=== PATIENT | male | born 1935 | race Caucasian/White ===

== ENCOUNTER 2016-07-04 16:19 | Inpatient (IN) | payer MEDICARE, BC ==
[2016-07-04] MEDS ORDERED: Sodium Chloride 0.9% 10 ML Syringe FLUSH PRN (17:00)
[2016-07-04] MEDS ORDERED: Sodium Chloride 0.9% 500 ML IV ONE (17:02)
[2016-07-04 18:07] LABS: CHLORIDE,CL 99 mmol/L (98-107); SODIUM,NA 136 mmol/L (136-145)
--- NOTE | 2016-07-04 19:01 | PCM.HP ---
H&P History of Present Illness - General Date of Service: 07/04/16 Admit Problem/Dx: Admission Diagnosis/Problem Admission Diagnosis/Problem UTI, Urinary tract infectious disease Source of Information: Patient History Limitations: Reports: No limitations - History of Present Illness Initial Comments - Free Text/Narative: Mr. Aragon is an 81 yo male with history as below who presented to the ED by EMS for evaluation following a fall. He was up and around the kitchen making supper when he suddenly felt lightheaded. He ended up falling and recalls falling on his knees, then his buttocks, and then his side. He denies that he hit his head and does not have a headache or any neck pain. There was some concern of a syncopal event but the patient does not believe he actually lost consciousness. His children who are with him note that this is quite typical for him when he gets a UTI. He admits that the urine in his ostomy bag has contained more sediment than usual over the past week. He has not had any abdominal pain, fever, or chills. He also notes that he has had an intermittently increased cough over the past 2 months that has been worse again over the past 2 weeks and especially today. He has been coughing up mucous but can't get it all the way out and ends up swallowing it. He has also been more short of breath and his daughter noted his oxygen saturation at home today to be 83%. He normally uses his oxygen only at night or with significant exertion but has needed it fairly consistently today. He denies any chest pain and notes that his legs have not been more swollen lately. As above, he has had no fever or chills. He has been more generally weak today but denies any nausea, vomiting , or diarrhea. He denies any pain in his legs or back following his fall today. - Related Data Allergies/Adverse Reactions: Allergies Allergy/AdvReac Type Severity Reaction Status Date / Time No Known Allergies Allergy Verified 04/07/16 19:44 Home Medications: Home Meds Albuterol [Proair HFA] 1 - 2 puff INH Q4H PRN 09/10/14 [History] Allopurinol [Zyloprim] 300 mg PO DAILY 09/10/14 [History] Budesonide/Formoterol [Symbicort 160-4.5 MCG] 2 puff PO BID 12/24/14 [History] Tiotropium [Spiriva HandiHaler] 1 puff PO DAILY 12/24/14 [History] Multivitamin with Minerals [Multiple Vitamin] 1 tab PO DAILY 06/19/15 [History] Metoprolol Succinate [Toprol XL] 25 mg PO DAILY #30 tab.er 07/20/15 [Rx] Spironolactone [Aldactone] 12.5 mg PO DAILY #15 tablet 07/20/15 [Rx] Furosemide 40 mg PO DAILY 01/26/16 [History] Magnesium Oxide [Magnesium] 500 mg PO DAILY 01/26/16 [History] Cyclobenzaprine [Flexeril] 10 mg PO TID PRN #40 tablet 04/11/16 [Rx] Nitrofurantoin Macrocrystal [Macrodantin] 100 mg PO DAILY #7 capsule 04/11/16 [ Rx] Warfarin [Coumadin] 2.5 mg PO DAILY #0 04/11/16 [Rx] Acetaminophen 1,000 mg PO TID PRN 07/04/16 [History] Diltiazem HCl [Cartia Xt] 180 mg PO DAILY 07/04/16 [History] Past Medical History HEENT History: Reports: Impaired vision Cardiovascular History: Reports: Afib, Aneurysm, Heart Failure, High cholesterol , Pulmonary hypertension Respiratory History: Reports: COPD, PE, SOB Other Respiratory History: hypoxia, oxygen dependent Gastrointestinal History: Reports: Chronic constipation Genitourinary History: Reports: Hydronephrosis, Renal calculus, UTI, recurrent Other Genitourinary History: kidney stones Musculoskeletal History: Reports: Gout Neurological History: Reports: Other (see below) Other Neuro History: mild cognitive impairment Psychiatric History: Reports: Other (see below) Other Psychiatric History: adjustment disorder Endocrine/Metabolic History: Reports: None Hematologic History: Reports: Other (see below) Other Hematologic History: coumadin therapy Immunologic History: Reports: None Oncologic (Cancer) History: Reports: Bladder Dermatologic History: Reports: Other (see below) Other Dermatologic History: skin discoloration to lower extremities - Infectious Disease History Infectious Disease History: Reports: None - Past Surgical History HEENT Surgical History: Reports: Cataract surgery Other HEENT Surgeries/Procedures: Unspecific Eye surgery Cardiovascular Surgical History: Reports: AAA repair GI Surgical History: Reports: Hernia, inguinal Male Surgical History: Reports: Cystectomy, TURP-Transurethral resection of prostate Other Male Surgeries/Procedures: UROSTOMY Social & Family History - Family History Cardiac: Reports: CAD Endocrine/Metabolic: Reports: Diabetes, type II - Tobacco Use Smoking Status *Q: Former Smoker Years of Tobacco use: 5 Packs/Tins Daily: 0.5 Used Tobacco, but Quit: Yes Month Tobacco Last Used: unknown Second Hand Smoke Exposure: No - Caffeine Use Caffeine Use: Reports: Coffee - Alcohol Use Alcohol Use History: No Days Per Week of Alcohol Use: 0 Alcohol Use in Last Twelve Months: No - Recreational Drug Use Recreational Drug Use: No - Living Situation & Occupation Living situation: Reports: , alone 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 Denies: fever, chills HEENT: Reports: no symptoms Pulmonary: Reports: Shortness of Breath, Cough, Sputum Cardiovascular: Reports: no symptoms Gastrointestinal: Reports: No symptoms Genitourinary: Reports: other (cloudy urine with increased sediments; urostomy bag) Musculoskeletal: Reports: no symptoms Skin: Reports: no symptoms Psychiatric: Reports: no symptoms Neurological: Reports: No Symptoms Exam - Exam Exam: See Below - Vital Signs Vital Signs: Last Vital Signs Temp 37.2 C 07/04/16 16:25 Pulse 113 H 07/04/16 16:39 Resp 18 07/04/16 16:39 BP 128/77 07/04/16 16:39 Pulse Ox 95 07/04/16 17:01 Weight: 92.533 kg - Exam General: alert, cooperative. No: mild distress, moderate distress, severe distress HEENT: Conjunctiva clear, EOMI, Mucosa moist & pink, Pupils equal, Pupils reactive Neck: supple, trachea midline. No: lymphadenopathy, thyromegaly Lungs: Clear to auscultation, Normal respiratory effort Cardiovascular: regular rate, normal S1, normal S2, irregular rhythm. No: systolic murmur, diastolic murmur Abdomen: normal bowel sounds, soft. No: organomegaly, distention, tenderness Extremities: normal inspection, normal pulses. No: edema Skin: warm, dry, intact Neurological: cranial nerves intact. No: focal deficit - Patient Data Result Diagrams: 07/04/16 17:15 07/04/16 17:15 *Q Meaningful Use (ADM) - VTE *Q VTE Criteria *Q: - Stroke *Q Stroke Criteria *Q: - AMI *Q AMI Criteria *Q: - Problem List (1) Syncope SNOMED Code(s): 762815669 ICD Code: R55 - SYNCOPE AND COLLAPSE Status: Acute Current Visit: Yes Problem Details: - Unclear whether he actually lost consciousness given he can recall the entire fall. - Regardless, event is likely secondary primarily to his UTI but also with contribution from his COPD exacerbation. He may have also been mildly dehydrated as well. PE unlikely given therapeutic INR. - Certainly, a cardiac cause is considered. However, the patient is not interested in a pacemaker or defibrillator if this was indicated. Therefore, will not place him on telemetry. He has no evidence of an acute ME based on his ECG or troponin results. Will not trend this either. His BNP is elevated but stable, as is his chest x-ray; therefore, there is no evidence of a CHF exacerbation. - Received 500 cc IV fluids in the ED. In the setting of his chronic heart failure, will hold off on further IV fluids today and allow him to ad rebecca POs. - IV bolus as needed for hypotension. Qualifiers: Syncope type: unspecified Qualified Code(s): R55 - Syncope and collapse (2) Fall SNOMED Code(s): 6345930, 817484846 ICD Code: W19.XXXA - UNSPECIFIED FALL, INITIAL ENCOUNTER Status: Acute Current Visit: Yes Problem Details: - Secondary to above. - No injuries noted. - No indication for head CT but this will be obtained immediately for any change in neurologic status. - Will likely require PT consult but we will see how he does with nursing. Qualifiers: Encounter type: initial encounter Qualified Code(s): W19.XXXA - Unspecified fall, initial encounter (3) UTI, Urinary tract infectious disease SNOMED Code(s): 05181227 ICD Code: N39.0 - URINARY TRACT INFECTION, SITE NOT SPECIFIED Status: Acute Priority: Low Current Visit: No Problem Details: - Urine was quite abnormal as collected in the ED. - However, this was from his ostomy bag; therefore, we will repeat the sample with a new ostomy in place. - This would be considered a complicated UTI based on his history. His previous urine culture results are reviewed. He has had a history of pseudomonas in the past, which has always been susceptible to fluoroquinolones. - In order to give him better lung coverage in the setting of his COPD exacerbation, will do levofloxacin instead of ciprofloxacin. Dosing for UTI is 250 mg daily x 10 days in the setting of possible pseudomonas. - Urine culture will also be sent. (4) COPD exacerbation SNOMED Code(s): 199160374, 646604371 ICD Code: J44.1 - CHRONIC OBSTRUCTIVE PULMONARY DISEASE W (ACUTE) EXACERBATION Status: Acute Current Visit: Yes Problem Details: - He has increased cough, increased sputum, and increased dyspnea, meeting all 3 criteria for COPD exacerbation. - Will treat with prednisone and PRN nebs. - Given he meets all 3 criteria, antibiotics are indicated as well. As above, will treat with levofloxacin to cover both the urine and the lungs. Although the dosing is lower at 250 mg, this is the appropriate dose for lung coverage as well given his renal impairment. He has no history of QTc prolongation and had a normal QTc on his ECG from [facility]. (5) COPD, severe SNOMED Code(s): 883245775 ICD Code: J44.9 - CHRONIC OBSTRUCTIVE PULMONARY DISEASE, UNSPECIFIED Status : Chronic Current Visit: No Problem Details: - Continue home inhalers. - Keep O2 sats in the 90-92% range. (6) Constipation SNOMED Code(s): 39134771 ICD Code: K59.00 - CONSTIPATION, UNSPECIFIED Status: Chronic Current Visit: No Problem Details: - Well controlled at this time. - Continue senna plus BID. Will also continue PRN lactulose and bisacodyl. (7) Chronic anticoagulation SNOMED Code(s): 502765089 ICD Code: Z79.01 - JAIL (CURRENT) USE OF ANTICOAGULANTS Status: Chronic Current Visit: No Problem Details: - INR is therapeutic. - He is at risk for fluctuations in this based on use of antibiotics. - Continue home warfarin dosing for now. - Recheck INR daily. (8) Chronic atrial fibrillation SNOMED Code(s): 491660212 ICD Code: I48.2 - CHRONIC ATRIAL FIBRILLATION Status: Chronic Current Visit: No Problem Details: - Rates high on ED presentation but now <100 after small IV fluid bolus. - As long as overall <110, will not treat with additional rate control at this time. - Will not do any further IV fluids overnight given elevated BNP and risk of causing the patient to have a CHF exacerbation. Will bolus as needed. - Continue home medications. (9) Chronic kidney disease SNOMED Code(s): 388526375 ICD Code: N18.9 - CHRONIC KIDNEY DISEASE, UNSPECIFIED Status: Chronic Current Visit: No Problem Details: - Thermostat Machine Tender mildly elevated above baseline of ~ 1.4 but does not meet criteria for OSIRIS. Bump likely secondary to mild dehydration. - Will follow daily. - Avoid nephrotoxic medications. - Renally dose all medications. Qualifiers: (10) Gout SNOMED Code(s): 63610722 ICD Code: M10.9 - GOUT, UNSPECIFIED Status: Chronic Current Visit: No Problem Details: - No current symptoms. - Continue allopurinol. Qualifiers: (11) Heart failure SNOMED Code(s): 96311675 ICD Code: I50.9 - HEART FAILURE, UNSPECIFIED Status: Chronic Current Visit: No Problem Details: - No symptoms or exam findings to suggest CHF exacerbation. BNP is elevated but stable. - CXR with findings of stable chronic CHF and no acute findings. - Overnight, will just be cautious with his fluid balance. - Continue home medications. Qualifiers: (12) History of pulmonary embolus (PE) SNOMED Code(s): 971977991 ICD Code: Z86.711 - PERSONAL HISTORY OF PULMONARY EMBOLISM Status: Chronic Current Visit: No Problem Details: - INR is therapeutic. - Will check daily. - Continue warfarin at home doses. (13) Hypercholesteremia SNOMED Code(s): 79214108 ICD Code: E78.0 - PURE HYPERCHOLESTEROLEMIA * DO NOT USE * Status: Chronic Current Visit: No Problem Details: - Continue home medications. (14) Pulmonary hypertension SNOMED Code(s): 46561358 ICD Code: I27.2 - OTHER SECONDARY PULMONARY HYPERTENSION Status: Chronic Current Visit: No Problem Details: - Supplemental oxygen as needed. Problem List Initiated/Reviewed/Updated: Yes Orders Last 24hrs: Medication Orders Sodium Chloride (Saline Flush) 10 ml FLUSH ASDIRECTED PRN PRN Reason: Keep Vein Open Assessment/Plan Comment:: 81 yo male admitted following a possible syncopal event, presumed secondary to a UTI and COPD exacerbation. See details under problems above. No further IV fluids tonight. Will start levofloxacin and prednisone. Blood cultures pending; urine will also be sent for culture. No indication for VTE prophylaxis as INR is therapeutic. Patient will be admitted under acute status as I anticipate he will be admitted for >2 midnights for stabilization and management. He may need a PT evaluation to determine safety going home, which would not be completed until Thursday. Will do PO antibiotics as the bioavailability of levofloxacin is the same PO as IV with less potential for side effects. Patient wishes to be DNR /DNI, which is consistent with documentation in the outpatient setting as well. He is also not interested in advanced interventions, such as pacemaker or ICD placement.
[2016-07-04] MEDS ORDERED: Acetaminophen 500 MG Tab PO PRN (19:43)
[2016-07-04] MEDS ORDERED: Cyclobenzaprine 10 MG Tab PO PRN (19:43)
[2016-07-04] MEDS ORDERED: Warfarin 2.5 MG Tab PO SCH (20:00)
[2016-07-04] MEDS ORDERED: Lactulose Soln 10 GM/15 ML 30 ML UD Cup PO PRN (20:03)
[2016-07-04] MEDS ORDERED: Bisacodyl 5 MG Tab PO PRN (20:05)
[2016-07-04] MEDS: Levofloxacin 250 MG Tab PO SCH (21:45)
[2016-07-04] MEDS: Formoterol/Mometasone 200-5 MCG 8.8 GM Inhaler IH SCH (21:47)
[2016-07-05] MEDS: Albuterol 0.083% 2.5 MG/3 ML Neb Soln NEB PRN ×3 (01:43→21:01)
[2016-07-05] MEDS: Tiotropium Inhaler 18 MCG Inhalation Powder Cap Kit of 5 INH SCH (08:01)
[2016-07-05] MEDS: Metoprolol Succinate 25 MG Tab.ER PO SCH (08:01)
[2016-07-05] MEDS: predniSONE 20 MG Tab PO SCH (08:01)
[2016-07-05] MEDS: Diltiazem 180 MG Cap.CD PO SCH (08:01)
[2016-07-05] MEDS: Furosemide 20 MG Tab PO SCH ×2 (08:02→16:55)
[2016-07-05] MEDS: Allopurinol 300 MG Tab PO SCH (08:02)
[2016-07-05] MEDS: Spironolactone 25 MG Tab PO SCH (08:02)
[2016-07-05] MEDS: Magnesium Oxide 400 MG Tab PO SCH (08:02)
--- NOTE | 2016-07-05 08:02 | PCM.PN ---
- General Info Date of Service: 07/05/16 Subjective Update: Doing ok this morning. Did have a fever overnight. Cough continues but breathing is improved. Denies abdominal pain or chest pain. - Review of Systems General: Reports: Fever, Weakness, Fatigue HEENT: Reports: no symptoms Pulmonary: Reports: shortness of breath, cough Cardiovascular: Reports: No Symptoms Gastrointestinal: Reports: No symptoms Genitourinary: Reports: no symptoms Musculoskeletal: Reports: no symptoms Skin: Reports: no symptoms - Patient Data Vitals - most recent: Last Vital Signs Temp 36.4 C 07/05/16 06:00 Pulse 84 07/05/16 06:00 Resp 22 H 07/05/16 06:00 BP 110/67 07/05/16 06:00 Pulse Ox 95 07/05/16 07:27 Weight - most recent: 94.347 kg I&O - last 24 hours: Intake & Output 07/04/16 07/05/16 07/05/16 22:59 06:59 14:59 Output Total 500 700 Balance -500 -700 Med Orders - Current: Current Medications Acetaminophen (Tylenol Extra Strength) 1,000 mg PO TID PRN PRN Reason: Pain Last Admin: 07/05/16 01:44 Dose: 1,000 mg Albuterol (Proventil Neb Soln) 2.5 mg NEB Q4H PRN PRN Reason: Shortness of Breath Last Admin: 07/05/16 01:43 Dose: 2.5 mg Allopurinol (Zyloprim) 300 mg PO DAILY [facility] Bisacodyl (Dulcolax) 5 mg PO DAILY PRN PRN Reason: Constipation Diltiazem HCl (Cardizem Cd) 180 mg PO DAILY [facility] Furosemide (Lasix) 20 mg PO BIDDIURETIC [facility] Lactulose (Cephulac) 20 gm PO TID PRN PRN Reason: Constipation Levofloxacin (Levaquin) 250 mg PO Q24H [facility] Last Admin: 07/04/16 21:45 Dose: 250 mg Magnesium Oxide (Magnesium Oxide) 400 mg PO DAILY [facility] Metoprolol Succinate (Toprol Xl) 25 mg PO DAILY [facility] Mometasone Furoate/Formoterol Fumar (Dulera 200-5 Mcg) 2 puff IH BID [facility] Last Admin: 07/04/16 21:47 Dose: 2 puff Prednisone (Prednisone) 40 mg PO WITHBREAKFAST [facility] Senna/Docusate Sodium (Senna Plus) 1 tab PO BID [facility] Last Admin: 07/04/16 21:45 Dose: 1 tab Sodium Chloride (Saline Flush) 10 ml FLUSH ASDIRECTED PRN PRN Reason: Keep Vein Open Spironolactone (Aldactone) 12.5 mg PO DAILY [facility] Tiotropium [place] (Spiriva Handihaler) 18 mcg INH DAILY [facility] Warfarin Sodium (Coumadin) 2.5 mg PO FR [facility] Last Admin: 07/04/16 21:45 Dose: 2.5 mg Warfarin Sodium (Coumadin) 5 mg PO SUMOTUWETHSA@2000 [facility] Discontinued Medications Cyclobenzaprine HCl (Flexeril) 10 mg PO TID PRN PRN Reason: Pain Sodium Chloride (Normal Saline) 500 mls @ 1,000 mls/hr IV .BOLUS ONE Stop: 07/04/16 17:31 Last Admin: 07/04/16 17:20 Dose: 1,000 mls/hr - Exam General: alert, cooperative, no acute distress HEENT: Pupils equal, Pupils reactive, Mucous membr. moist/pink Neck: supple, trachea midline, no thyromegaly. No: lymphadenopathy Lungs: Clear to auscultation, Normal respiratory effort Cardiovascular: Regular Rate, No Murmurs, Irregular Rhythm Abdomen: bowel sounds present, soft, no tenderness, no distension Extremities: no edema, normal pulses Skin: warm, dry, intact - Problem List & Annotations (1) Syncope SNOMED Code(s): 141873451 Code(s): R55 - SYNCOPE AND COLLAPSE Status: Acute Current Visit: Yes Qualifiers: Syncope type: unspecified Qualified Code(s): R55 - Syncope and collapse Annotation/Comment:: - Unclear whether he actually lost consciousness given he can recall the entire fall. - Regardless, event is likely secondary primarily to his UTI but also with contribution from his COPD exacerbation. - Received 500 cc IV fluids in the ED. In the setting of his chronic heart failure, opted to hold off on further IV fluids overnight and allow him to ad rebecca POs. Will see what his Creatinine is today and decide on further fluids but I suspect we will be able to stick with orals. - IV bolus as needed for hypotension. (2) Fall SNOMED Code(s): 3614554, 905533537 Code(s): W19.XXXA - UNSPECIFIED FALL, INITIAL ENCOUNTER Status: Acute Current Visit: Yes Qualifiers: Encounter type: initial encounter Qualified Code(s): W19.XXXA - Unspecified fall, initial encounter Annotation/Comment:: - Secondary to above. - No injuries noted. - No indication for head CT but this will be obtained immediately for any change in neurologic status. - Will likely require PT consult but we will see how he does with nursing. (3) UTI, Urinary tract infectious disease SNOMED Code(s): 81905085 Code(s): N39.0 - URINARY TRACT INFECTION, SITE NOT SPECIFIED Status: Acute Priority: Low Current Visit: No Annotation/Comment:: - Urine was quite abnormal as collected in the ED. - However, this was from his ostomy bag; therefore, we will repeat the sample with a new ostomy in place. - This would be considered a complicated UTI based on his history. His previous urine culture results are reviewed. He has had a history of pseudomonas in the past, which has always been susceptible to fluoroquinolones. - In order to give him better lung coverage in the setting of his COPD exacerbation, he is on levofloxacin instead of ciprofloxacin. Dosing for UTI is 250 mg daily x 10 days in the setting of possible pseudomonas. - Urine culture will also be sent. (4) COPD exacerbation SNOMED Code(s): 185535864, 318203203 Code(s): J44.1 - CHRONIC OBSTRUCTIVE PULMONARY DISEASE W (ACUTE) EXACERBATION Status: Acute Current Visit: Yes Annotation/Comment:: - He has increased cough, increased sputum, and increased dyspnea, meeting all 3 criteria for COPD exacerbation. - Note his influenza was negative. No evidence for pneumonia on CXR. - Will treat with prednisone and PRN nebs. - Given he meets all 3 criteria, antibiotics are indicated as well. As above, will treat with levofloxacin to cover both the urine and the lungs. Although the dosing is lower at 250 mg, this is the appropriate dose for lung coverage as well given his renal impairment. He has no history of QTc prolongation and had a normal QTc on his ECG from his ED visit. (5) COPD, severe SNOMED Code(s): 043483616 Code(s): J44.9 - CHRONIC OBSTRUCTIVE PULMONARY DISEASE, UNSPECIFIED Status : Chronic Current Visit: No Annotation/Comment:: - Continue home inhalers. - Keep O2 sats in the 90-92% range. (6) Constipation SNOMED Code(s): 64620709 Code(s): K59.00 - CONSTIPATION, UNSPECIFIED Status: Chronic Current Visit : No Annotation/Comment:: - Well controlled at this time. - Continue senna plus BID. Will also continue PRN lactulose and bisacodyl. 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 - The levofloxacin will likely result in INR elevation; therefore, we will not change the dose today. - Continue home warfarin dosing for now. He does not need any bridging given 1.8 is still considered therapeutic. - Recheck INR daily. (8) Chronic atrial fibrillation SNOMED Code(s): 115645746 Code(s): I48.2 - CHRONIC ATRIAL FIBRILLATION Status: Chronic Current Visit: No Annotation/Comment:: - Rates high on ED presentation but have been < 100 since admission. - Continue home medications. 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 Baseline is ~1.4. - Bump likely secondary to mild dehydration. He got IV fluids in the ED. Based on his tenuous CHF status, I will not give him any IV fluids today. Rather, nursing staff will encourage adequate PO fluids. - Will follow daily. - Avoid nephrotoxic medications. - Renally dose all medications. (10) Gout SNOMED Code(s): 54826016 Code(s): M10.9 - GOUT, UNSPECIFIED Status: Chronic Current Visit: No Qualifiers: Annotation/Comment:: - No current symptoms. - Continue allopurinol. (11) Heart failure SNOMED Code(s): 75667127 Code(s): I50.9 - HEART FAILURE, UNSPECIFIED Status: Chronic Current Visit : No Qualifiers: Annotation/Comment:: - No symptoms or exam findings to suggest CHF exacerbation. BNP is elevated but stable. - CXR with findings of stable chronic CHF and no acute findings. - Overnight, will just be cautious with his fluid balance. - Continue home medications. (12) History of pulmonary embolus (PE) SNOMED Code(s): 244241513 Code(s): Z86.711 - PERSONAL HISTORY OF PULMONARY EMBOLISM Status: Chronic Current Visit: No Annotation/Comment:: - INR is therapeutic. - Will check daily. - Continue warfarin at home doses. (13) Hypercholesteremia SNOMED Code(s): 28074935 Code(s): E78.0 - PURE HYPERCHOLESTEROLEMIA * DO NOT USE * Status: Chronic Current Visit: No Annotation/Comment:: - Continue home medications. (14) Pulmonary hypertension SNOMED Code(s): 89635366 Code(s): I27.2 - OTHER SECONDARY PULMONARY HYPERTENSION Status: Chronic Current Visit: No Annotation/Comment:: - Supplemental oxygen as needed. - Problem List Review Problem List Initiated/Reviewed/Updated: Yes - My Orders Last 24 Hours: My Active Orders 07/04/16 19:35 Oxygen Therapy [RC] PRN Up With Assistance [RC] ASDIRECTED VTE/DVT Education [RC] PER UNIT ROUTINE Vital Signs [RC] 06,10,14,18,22,02 Anticoagulation Contraindications VTE [AST] Per Unit Routine Resuscitation Status Routine 07/04/16 19:40 Notify Provider Vital Signs [RC] ASDIRECTED 07/04/16 19:43 Acetaminophen [Tylenol Extra Strength] 1,000 mg PO TID PRN 07/04/16 20:00 Albuterol [Proventil Neb Soln] 2.5 mg NEB Q4H PRN Warfarin [Coumadin] 2.5 mg PO FR 07/04/16 20:01 RT Aerosol Therapy [RC] ASDIRECTED 07/04/16 20:03 Lactulose [Cephulac] 20 gm PO TID PRN 07/04/16 20:05 Bisacodyl [Dulcolax] 5 mg PO DAILY PRN 07/04/16 20:15 Docusate Sodium/Sennosides [Senna Plus] 1 tab PO BID 07/04/16 20:30 Levofloxacin [Levaquin] 250 mg PO Q24H Mometasone/Formoterol [Dulera 200-5 MCG] 2 puff IH BID 07/04/16 21:15 CULTURE URINE [RM] Stat UA W/MICROSCOPIC [URIN] Routine 07/04/16 Dinner Regular Diet [DIET] 07/05/16 07:40 BASIC METABOLIC PANEL,BMP [CHEM] Routine CBC WITH AUTO DIFF [HEME] Routine INR,PT,PROTHROMBIN TIME [COAG] Routine 07/05/16 08:00 Allopurinol [Zyloprim] 300 mg PO DAILY Diltiazem [Cardizem CD] 180 mg PO DAILY Furosemide [Lasix] 20 mg PO BIDDIURETIC Magnesium Oxide 400 mg PO DAILY Metoprolol Succinate [Toprol XL] 25 mg PO DAILY Spironolactone [Aldactone] 12.5 mg PO DAILY Tiotropium [Spiriva HandiHaler] 18 mcg INH DAILY predniSONE 40 mg PO WITHBREAKFAST 07/05/16 20:00 Warfarin [Coumadin] 5 mg PO KURTCESIARAUL@1999 - Assessment Assessment:: 81 yo male admitted following a syncopal vs. near syncopal event, felt to be secondary to UTI and COPD exacerbation. See details under problems above. He is doing much better this morning but still coughing more than usual. - Plan Plan:: See details under problems above. IV fluid bolus PRN. Continue levofloxacin and prednisone. Blood cultures pending; urine will also be sent for culture. No indication for VTE prophylaxis as INR is therapeutic. Patient will be admitted under acute status and I anticipate dismissal likely Thursday (48 hours from now) . He may need a PT evaluation to determine safety going home, which would not be completed until Thursday. Will do PO antibiotics as the bioavailability of levofloxacin is the same PO as IV with less potential for side effects. Patient wishes to be DNR/DNI, which is consistent with documentation in the outpatient setting as well. He is also not interested in advanced interventions, such as pacemaker or ICD placement.
[2016-07-05] MEDS: Formoterol/Mometasone 200-5 MCG 8.8 GM Inhaler IH SCH ×2 (08:03→21:07)
[2016-07-05] MEDS: Warfarin 5 MG Tab PO SCH (20:33)
[2016-07-05] MEDS: Levofloxacin 250 MG Tab PO SCH (20:34)
[2016-07-06] MEDS: Albuterol 0.083% 2.5 MG/3 ML Neb Soln NEB PRN (07:19)
[2016-07-06] MEDS: Metoprolol Succinate 25 MG Tab.ER PO SCH (07:35)
[2016-07-06] MEDS: Allopurinol 300 MG Tab PO SCH (07:35)
[2016-07-06] MEDS: predniSONE 20 MG Tab PO SCH (07:35)
[2016-07-06] MEDS: Diltiazem 180 MG Cap.CD PO SCH (07:35)
[2016-07-06] MEDS: Magnesium Oxide 400 MG Tab PO SCH (07:35)
[2016-07-06] MEDS: Spironolactone 25 MG Tab PO SCH (07:35)
[2016-07-06] MEDS: Formoterol/Mometasone 200-5 MCG 8.8 GM Inhaler IH SCH ×2 (07:36→21:01)
[2016-07-06] MEDS: Furosemide 20 MG Tab PO SCH ×2 (07:36→17:30)
[2016-07-06] MEDS: Tiotropium Inhaler 18 MCG Inhalation Powder Cap Kit of 5 INH SCH (07:36)
--- NOTE | 2016-07-06 09:35 | PCM.PN ---
- General Info Date of Service: 07/06/16 Subjective Update: Still quite weak this morning. Cough and breathing are stable. No chest pain, fever, or chills. No abdominal pain, nausea, vomiting, or diarrhea. ROS otherwise negative as below. Nursing staff concerned about some confusion overnight and in the mornings; seems to do better around lunch and the afternoon. Is quite weak and having difficulty with ambulation. - Review of Systems General: Reports: No Symptoms HEENT: Reports: no symptoms Pulmonary: Reports: shortness of breath, cough Cardiovascular: Reports: No Symptoms Gastrointestinal: Reports: No symptoms Genitourinary: Reports: no symptoms Musculoskeletal: Reports: no symptoms Skin: Reports: no symptoms Neurological: Reports: No Symptoms - Patient Data Vitals - most recent: Last Vital Signs Temp 36.2 C 07/06/16 06:00 Pulse 81 07/06/16 07:35 Resp 18 07/06/16 06:00 BP 119/79 07/06/16 07:35 Pulse Ox 92 L 07/06/16 07:19 Weight - most recent: 94.347 kg I&O - last 24 hours: Intake & Output 07/05/16 07/06/16 07/06/16 22:59 06:59 14:59 Intake Total 350 200 Output Total 950 850 Balance -600 -850 200 Lab Results last 24 hrs: Laboratory Results - last 24 hr 07/06/16 07/06/16 07/06/16 Range/Units 07:36 07:36 07:36 WBC 10.3 H (4.0-10.0) x10^3/uL RBC 4.48 L (4.5-6.0) x10^6/uL Hgb 15.2 (14.0-18.0) g/dL Hct 44.9 (40.0-52.0) % MCV 100.2 H (78.0-93.0) fL MCH 33.9 H (26.0-32.0) pg MCHC 33.9 (32.0-36.0) g/dL RDW Coeff of Lety 13.6 (10.0-15.0) % Plt Count 175 (130-400) x10^3/uL Add Manual Diff Yes Neutrophils % (Manual) 72 (50-80) % Band Neutrophils % 3 (0-6) % Lymphocytes % (Manual) 16 L (25-50) % Monocytes % (Manual) 9 (2-11) % Platelet Estimate Adequate PT 20.2 H (10.0-12.8) SEC INR 1.8 L (2.0-3.5) Sodium 133 L (136-145) mmol/L Potassium 4.5 (3.5-5.1) mmol/L Chloride 99 (98-107) mmol/L Carbon Dioxide 26 (21-32) mmol/L BUN 30 H (7-18) mg/dL Creatinine 1.4 H (0.70-1.30) mg/dL Est Cr Clr Drug Dosing 45.18 mL/min Estimated GFR (MDRD) 48 Glucose 114 H (74-106) mg/dL Calcium 8.3 L (8.5-10.1) mg/dL Joce Results last 24 hrs: Microbiology 07/04/16 21:15 Urine Culture - Preliminary Urine, Urostromy Gram Negative Rods 07/05/16 06:30 MRSA Surveillance Culture - Final Nasal, Unspecified NO MRSA ISOLATED Med Orders - Current: Current Medications Acetaminophen (Tylenol Extra Strength) 1,000 mg PO TID PRN PRN Reason: Pain Last Admin: 07/05/16 01:44 Dose: 1,000 mg Albuterol (Proventil Neb Soln) 2.5 mg NEB Q4H PRN PRN Reason: Shortness of Breath Last Admin: 07/06/16 07:19 Dose: 2.5 mg Allopurinol (Zyloprim) 300 mg PO DAILY [facility] Last Admin: 07/06/16 07:35 Dose: 300 mg Bisacodyl (Dulcolax) 5 mg PO DAILY PRN PRN Reason: Constipation Diltiazem HCl (Cardizem Cd) 180 mg PO DAILY [facility] Last Admin: 07/06/16 07:35 Dose: 180 mg Furosemide (Lasix) 20 mg PO BIDDIURETIC [facility] Last Admin: 07/06/16 07:36 Dose: 20 mg Lactulose (Cephulac) 20 gm PO TID PRN PRN Reason: Constipation Levofloxacin (Levaquin) 250 mg PO Q24H [facility] Last Admin: 07/05/16 20:34 Dose: 250 mg Magnesium Oxide (Magnesium Oxide) 400 mg PO DAILY [facility] Last Admin: 07/06/16 07:35 Dose: 400 mg Metoprolol Succinate (Toprol Xl) 25 mg PO DAILY [facility] Last Admin: 07/06/16 07:35 Dose: 25 mg Mometasone Furoate/Formoterol Fumar (Dulera 200-5 Mcg) 2 puff IH BID [facility] Last Admin: 07/06/16 07:36 Dose: 2 puff Prednisone (Prednisone) 40 mg PO WITHBREAKFAST [facility] Last Admin: 07/06/16 07:35 Dose: 40 mg Senna/Docusate Sodium (Senna Plus) 1 tab PO BID [facility] Last Admin: 07/06/16 07:35 Dose: 1 tab Sodium Chloride (Saline Flush) 10 ml FLUSH ASDIRECTED PRN PRN Reason: Keep Vein Open Spironolactone (Aldactone) 12.5 mg PO DAILY [facility] Last Admin: 07/06/16 07:35 Dose: 12.5 mg Tiotropium [place] (Spiriva Handihaler) 18 mcg INH DAILY [facility] Last Admin: 07/06/16 07:36 Dose: 18 mcg Warfarin Sodium (Coumadin) 2.5 mg PO FR [facility] Last Admin: 07/04/16 21:45 Dose: 2.5 mg Warfarin Sodium (Coumadin) 5 mg PO SUMOTUWETHSA@2000 [facility] Last Admin: 07/05/16 20:33 Dose: 5 mg Discontinued Medications Cyclobenzaprine HCl (Flexeril) 10 mg PO TID PRN PRN Reason: Pain Sodium Chloride (Normal Saline) 500 mls @ 1,000 mls/hr IV .BOLUS ONE Stop: 07/04/16 17:31 Last Admin: 07/04/16 17:20 Dose: 1,000 mls/hr - Exam General: alert, cooperative, no acute distress Neck: supple, no thyromegaly. No: lymphadenopathy Lungs: Clear to auscultation, Normal respiratory effort Cardiovascular: Regular Rate, Regular Rhythm, No Murmurs Abdomen: bowel sounds present, soft, no tenderness, no distension Extremities: no edema, normal pulses Skin: warm, dry, intact - Problem List & Annotations (1) Syncope SNOMED Code(s): 446009011 Code(s): R55 - SYNCOPE AND COLLAPSE Status: Acute Current Visit: Yes Qualifiers: Syncope type: unspecified Qualified Code(s): R55 - Syncope and collapse Annotation/Comment:: - Unclear whether he actually lost consciousness given he can recall the entire fall. - Regardless, event is likely secondary primarily to his UTI but also with contribution from his COPD exacerbation. - Received 500 cc IV fluids in the ED. In the setting of his chronic heart failure, opted to hold off on further IV fluids thus far and allow him to ad rebecca POs. He is keeping up with fluid intake well. - IV bolus as needed for hypotension. (2) Fall SNOMED Code(s): 5936174, 146493395 Code(s): W19.XXXA - UNSPECIFIED FALL, INITIAL ENCOUNTER Status: Acute Current Visit: Yes Qualifiers: Encounter type: initial encounter Qualified Code(s): W19.XXXA - Unspecified fall, initial encounter Annotation/Comment:: - Secondary to above. - No injuries noted. - No indication for head CT but this will be obtained immediately for any change in neurologic status. - Will need PT/OT consults tomorrow as he will likely require a swing bed stay after this acute hospitalization. (3) UTI, Urinary tract infectious disease SNOMED Code(s): 94266406 Code(s): N39.0 - URINARY TRACT INFECTION, SITE NOT SPECIFIED Status: Acute Priority: Low Current Visit: No Annotation/Comment:: - Urine was quite abnormal as collected in the ED. Repeat u/a also consistent with infection. - Urine culture showing growth of gram negative rods. - Clinically, he is improving and has now been afebrile for >24 hours. His WBC are up today, but this is likely secondary to the prednisone. - This would be considered a complicated UTI based on his history. His previous urine culture results are reviewed. He has had a history of pseudomonas in the past, which has always been susceptible to fluoroquinolones. - In order to give him better lung coverage in the setting of his COPD exacerbation, he is on levofloxacin instead of ciprofloxacin. Will continue this for a total of 10 days. (4) COPD exacerbation SNOMED Code(s): 203763308, 217908120 Code(s): J44.1 - CHRONIC OBSTRUCTIVE PULMONARY DISEASE W (ACUTE) EXACERBATION Status: Acute Current Visit: Yes Annotation/Comment:: - He has increased cough, increased sputum, and increased dyspnea, meeting all 3 criteria for COPD exacerbation. - Note his influenza was negative. No evidence for pneumonia on CXR. - Will treat with prednisone and PRN nebs. - Given he meets all 3 criteria, antibiotics are indicated as well. As above, will treat with levofloxacin to cover both the urine and the lungs. Although the dosing is lower at 250 mg, this is the appropriate dose for lung coverage as well given his renal impairment. He has no history of QTc prolongation and had a normal QTc on his ECG from his ED visit. (5) COPD, severe SNOMED Code(s): 799948861 Code(s): J44.9 - CHRONIC OBSTRUCTIVE PULMONARY DISEASE, UNSPECIFIED Status : Chronic Current Visit: No Annotation/Comment:: - Continue home inhalers. - Keep O2 sats in the 90-92% range. (6) Constipation SNOMED Code(s): 70387832 Code(s): K59.00 - CONSTIPATION, UNSPECIFIED Status: Chronic Current Visit : No Annotation/Comment:: - Well controlled at this time. - Continue senna plus BID. Will also continue PRN lactulose and bisacodyl. 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 - Anticipate tomorrow's INR will be up given he is on the levofloxacin; therefore, we will again not change the dose today. - Continue home warfarin dosing for now. He does not need any bridging given 1.8 is still considered borderline therapeutic. - Recheck INR daily. (8) Chronic atrial fibrillation SNOMED Code(s): 320858527 Code(s): I48.2 - CHRONIC ATRIAL FIBRILLATION Status: Chronic Current Visit: No Annotation/Comment:: - Rates high on ED presentation but have been < 100 since admission. - Continue home medications. 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 - Bump likely secondary to mild dehydration. He got IV fluids in the ED but has done well with PO fluids since then. - Will follow daily. - Avoid nephrotoxic medications. - Renally dose all medications. (10) Gout SNOMED Code(s): 32038477 Code(s): M10.9 - GOUT, UNSPECIFIED Status: Chronic Current Visit: No Qualifiers: Annotation/Comment:: - No current symptoms. - Continue allopurinol. (11) Heart failure SNOMED Code(s): 59827070 Code(s): I50.9 - HEART FAILURE, UNSPECIFIED Status: Chronic Current Visit : No Qualifiers: Annotation/Comment:: - No symptoms or exam findings to suggest CHF exacerbation. BNP is elevated but stable. - CXR with findings of stable chronic CHF and no acute findings. - Will continue to be cautious with his fluid balance. - Continue home medications. (12) History of pulmonary embolus (PE) SNOMED Code(s): 794328924 Code(s): Z86.711 - PERSONAL HISTORY OF PULMONARY EMBOLISM Status: Chronic Current Visit: No Annotation/Comment:: - INR is therapeutic. - Will check daily. - Continue warfarin at home doses. (13) Hypercholesteremia SNOMED Code(s): 69700759 Code(s): E78.0 - PURE HYPERCHOLESTEROLEMIA * DO NOT USE * Status: Chronic Current Visit: No Annotation/Comment:: - Continue home medications. (14) Pulmonary hypertension SNOMED Code(s): 84293103 Code(s): I27.2 - OTHER SECONDARY PULMONARY HYPERTENSION Status: Chronic Current Visit: No Annotation/Comment:: - Supplemental oxygen as needed. - Problem List Review Problem List Initiated/Reviewed/Updated: Yes - My Orders Last 24 Hours: My Active Orders 07/05/16 11:02 Consult to Healthcare Customer Service [CONS] Routine OT Evaluation and Treatment [CONS] Routine PT Evaluation and Treatment [CONS] Routine 07/05/16 11:41 IS (RT) [RT Incentive Spirometry] [RC] Q2HWA 07/05/16 20:00 Warfarin [Coumadin] 5 mg PO ADELETUWRAUL@1999 - Assessment Assessment:: 81 yo male admitted following a syncopal vs. near syncopal event, felt to be secondary to UTI and COPD exacerbation. See details under problems above. He is still quite weak but otherwise medically improving. - Plan Plan:: See details under problems above. IV fluid bolus PRN. Continue levofloxacin and prednisone. Blood cultures pending; urine culture showing gram - rods. No indication for VTE prophylaxis as INR is therapeutic. Patient will be admitted under acute status and I anticipate transition to swing bed tomorrow. He may need a PT evaluation to determine safety going home, which would not be completed until tomorrow. Will do PO antibiotics as the bioavailability of levofloxacin is the same PO as IV with less potential for side effects. Patient wishes to be DNR/DNI, which is consistent with documentation in the outpatient setting as well. He is also not interested in advanced interventions, such as pacemaker or ICD placement.
[2016-07-06] MEDS: Levofloxacin 250 MG Tab PO SCH (19:44)
[2016-07-06] MEDS: Warfarin 5 MG Tab PO SCH (19:44)
[2016-07-07] MEDS: Allopurinol 300 MG Tab PO SCH (07:24)
[2016-07-07] MEDS: Diltiazem 180 MG Cap.CD PO SCH (07:25)
[2016-07-07] MEDS: Spironolactone 25 MG Tab PO SCH (07:25)
[2016-07-07] MEDS: Furosemide 20 MG Tab PO SCH ×2 (07:26→14:59)
[2016-07-07] MEDS: predniSONE 20 MG Tab PO SCH (07:26)
[2016-07-07] MEDS: Metoprolol Succinate 25 MG Tab.ER PO SCH (07:26)
[2016-07-07] MEDS: Magnesium Oxide 400 MG Tab PO SCH (07:26)
[2016-07-07] MEDS: Formoterol/Mometasone 200-5 MCG 8.8 GM Inhaler IH SCH (07:28)
[2016-07-07] MEDS: Tiotropium Inhaler 18 MCG Inhalation Powder Cap Kit of 5 INH SCH (07:30)
[2016-07-07 16:54] VITALS: BP 114/74
--- NOTE | 2016-07-08 03:03 | DISCH ---
PRIMARY DISCHARGE DIAGNOSES: 1. Chronic obstructive pulmonary disease exacerbation with known underlying severe chronic obstructive pulmonary disease. 2. Episode of syncope versus presyncope due to medical illness. 3. Urinary tract infection with gram-negative rods complicated due to a urostomy with history of recurrent Pseudomonas urinary tract infection. He is doing well on Levaquin. 4. Chronic atrial fibrillation on Coumadin. 5. History of compression fracture in the back improved. 6. Chronic kidney disease, baseline creatinine is around 1.4. 7. History of bladder stones and history of bladder cancer. 8. History of gout. 9. Mild cognitive impairment with mini mental of 23/30 in 03/2016. 10.Moderate to severe pulmonary hypertension. 11.Previous history of a pulmonary embolism. 12.Chronic diastolic heart failure with previous admit for the same. 13.History of aortic aneurysm repaired. 14.Previous history of lymphadenopathy, declined further workup. 15.Hyperlipidemia. 16.Adjustment disorder. REASON FOR ADMISSION: On the date of admission, this 81-year-old was at home. He was going to prepare supper. He was carrying a roast to the oven and he went down and he remembers most of what happened, he is not sure if he passed out completely, but when he awoke, he could not get up, so he used his lifeline and then the police and ambulance came and they brought him to the emergency room. He admitted to having increased cough and shortness of breath over the last month. He had not had any fevers that he could remember. He had no abdominal pain. He was admitted. He was placed on nebs, oral prednisone 40 mg daily, and oral Levaquin which he tolerated and overall improved to the point where he was up working with therapies. They felt he would benefit from swing bed. He did have a temp during his stay early on with T-max of a 100.8. He was also requiring more oxygen initially at least 4 L. He is supposed to be on oxygen continuously at home. Otherwise, he had no significant pain during his stay. He still has some aches in his back from his previous compression fracture. He had not had a bowel movement since he came in but had been up moving around either. His creatinine which at one point was elevated up to 1.7 improved down to 1.4. He did receive some IV fluids in the ER, but no further fluids were given due to heart failure. He did not require any IV Lasix. His white count was normal, but did go up to 10.3, probably due to prednisone and improved down to 10.1 on discharge. INR 2.0 on discharge. Creatinine 1.4. DISCHARGE PLAN/INSTRUCTIONS: He is going over to swing bed for further therapies. Urine culture preliminary is gram-negative rods with official report pending. He will have no lab work due. INR is now therapeutic, but if on swing bed for 1 week, we will definitely recheck things later in the week. Otherwise, anticipate he may go home within the next several days to 1 week, otherwise no medication changes were made. He will continue on prednisone for a total of 5 days. We will plan for 1 week of Levaquin for now but would consider increasing it to 14 days due to the complicated UTI. Otherwise all questions were answered. We should note that he was also tachycardic with his atrial fibrillation up to the 120s which improved down to a heart rate of 79 on discharge. OBJECTIVE: Vital Signs: Temp 98.1, weight 93.3 kg, blood pressure 114/74, respiratory rate 18, and O2 of 94 on 3 L. General: He is in no acute distress. Heart: Irregularly irregular with a murmur noted. Lungs: Sounds show decreased air entry, but no crackles or wheezes. Abdomen: Positive bowel sounds. Soft and nontender. Extremities: Warm and dry. Trace edema. He did have some urinary sediment in his urostomy. Mental status: He is alert and oriented x3, but short-term memory, he asked me if I knew he had fractured his back and I had actually told him I took care of him in the hospital and he did not seem to remember this. 30 minutes spent on this discharge process. MKA: 07/07/2016 17:07:21 MODL: 07/08/2016 02:54:46 /[id number]
--- NOTE | 2016-07-09 08:48 | ER ---
Date of Service: 07/04/2016 SUBJECTIVE: Mr. Aragon presents to the emergency room following a fall. The patient states he was making supper when he felt lightheadedness and fell to his knees, then to his buttocks, and then eventually to his side. He states he did not strike his head and denies any neck injury. The patient states that he has noticed increased mucus in his ostomy bag. He had his bladder removed secondary to bladder cancer. He states that his urine has also appeared somewhat more concentrated as well. PAST MEDICAL HISTORY: 1. Pulmonary hypertension. 2. Pulmonary embolism. 3. Hypercholesterolemia. 4. History of CHF. 5. Gout. 6. COPD. 7. Chronic constipation. 8. Chronic anticoagulation. 9. Chronic kidney disease. 10.Atrial fibrillation. MEDICATIONS: 1. Magnesium oxide. 2. ProAir HFA. 3. Acetaminophen. 4. Spiriva. 5. Spironolactone. 6. Furosemide. 7. Diltiazem. 8. Allopurinol. 9. Toprol-XL. 10.Warfarin. 11.Prednisone. 12.Dulera. 13.Levofloxacin. 14.Senna Plus. 15.Bisacodyl. ALLERGIES: NKDA. REVIEW OF SYSTEMS: Constitutional: Denies any fever or chills. HEENT: No sore throat, rhinorrhea, or congestion. Respiratory: No shortness of breath. Cardiac: Denies any substernal chest pain. No jaw, arm, neck, or back pain. GI: No nausea, vomiting, or diarrhea. No melena, hematochezia, or hematemesis. : Denies any dysuria. He does have a urostomy in place. Again, has noticed cloudy urine that is more concentrated and presence of more mucus in the bag. Neurologic: Positive for brief episode of syncope. Denies any numbness or tingling in his extremities. No difficulties with speech or ambulation. PHYSICAL EXAMINATION: General: This is an 81-year-old male patient, who is in no acute distress. Vital Signs: Blood pressure is 109/70, heart rate was 120, temperature is 37.2, O2 saturation is 92% on oxygen 4 L per nasal cannula, and respiratory rate is 22. After approximately 750 mL of fluid bolus, heart rate decreased to 97, blood pressure was 131/74, respiratory rate was 20, and O2 saturation was 95% on 4 L. He was febrile with a temp of 37.2. Skin: Warm, pale, and dry. HEENT: Head is normocephalic, atraumatic. Eyes, PERRLA. Extraocular movements intact. Ears, TMs are clear. Mouth, oral mucosa is quite dry. No erythema or exudate noted in the hypopharynx. Neck: Supple. No masses. There is no lymphadenopathy. Lungs: Clear to auscultation. Heart: Regular rate and rhythm. Abdomen: Soft, nontender. There is no hepatosplenomegaly or masses noted. : Does have urostomy in place that had recently been drained. There is foul smelling, dark-colored urine with large amount of mucus present. Sample was taken from the site of the urostomy for culture. Neurologic: Cranial nerves 2 through 12 are intact. His speech is fluent. His gait is within normal limits. LABORATORY DATA: At the time of discharge, WBC is 10.1, hemoglobin is 15.4, and platelets are 177. PT is 22.3 and INR is 2.0. Sodium is 137, potassium is 4.4, chloride is 101, bicarb is 30, BUN is 35, creatinine is 1.4, creatinine clearance is 45.18, glucose is 98, and calcium is 8.8. Urinalysis reveals large leukocyte esterase, large occult blood, trace of protein, turbid specimen, specific gravity is 1.015, and it was negative for nitrites. Portable chest x- ray was obtained. There was no evidence of any acute infiltrate. EMERGENCY ROOM COURSE: IV access was established. He was given Levaquin 500 mg IV for his urinary tract infection. He was also given again approximately 750 mL fluid bolus. He remained stable in my care in the emergency room. ASSESSMENT: 1. Urinary tract infection. 2. Dehydration. PLAN: The patient was admitted. Dr. Lairsa Ellsworth did come in and admit the patient. The patient is do not resuscitate, do not intubate. MWK: 07/08/2016 17:53:59 MODL: 07/08/2016 21:44:15 /[id number]
[2016-07-11] MEDS ORDERED: Warfarin 2.5 MG Tab PO SCH (20:00)
== END 2016-07-07 16:30 | disposition swing bed (61) | DRG 191 ==
LOC: VM.ED 16:19 → SUPCPDRO 16:19 → VM.MS 18:26
PROVIDERS: ADMIT Family Medicine; ATTEND Internal Medicine
DX: J44.1 Chronic obstructive pulmonary disease with (acute) exacerbation (principal); E86.0 Dehydration; N39.0 Urinary tract infection, site not specified; I13.0 Hypertensive heart and chronic kidney disease with heart failure and stage 1 through stage 4 chronic kidney disease, or unspecified chronic kidney disease; I50.32 Chronic diastolic (congestive) heart failure; R55 Syncope and collapse; B96.89 Other specified bacterial agents as the cause of diseases classified elsewhere; I48.2 Chronic atrial fibrillation; Z85.51 Personal history of malignant neoplasm of bladder; Z87.81 Personal history of (healed) traumatic fracture; I48.91 Unspecified atrial fibrillation; G31.84 Mild cognitive impairment of uncertain or unknown etiology; I27.2 Other secondary pulmonary hypertension; N18.9 Chronic kidney disease, unspecified; Z86.79 Personal history of other diseases of the circulatory system; E78.5 Hyperlipidemia, unspecified; Z86.711 Personal history of pulmonary embolism; Z79.01 Long term (current) use of anticoagulants; Z99.81 Dependence on supplemental oxygen; Z87.442 Personal history of urinary calculi; Z87.891 Personal history of nicotine dependence; W19.XXXA Unspecified fall, initial encounter; K59.00 Constipation, unspecified; Z93.6 Other artificial openings of urinary tract status; Z90.6 Acquired absence of other parts of urinary tract
CPT/HCPCS: 36415; 71010; 80053; 81001; 82550; 82553; 83605; 83880; 84484; 85025; 85610; 86140; 87040 ×2; 87804 ×2; 93005; 99284; 99285; J7030; 80048; 87086; 87088; 87186; 94640-76; 94760; 97161-GP; 97530-GP; A9270-GY; J7620-GY

== ENCOUNTER 2016-07-07 14:13 | Inpatient (IN) | payer MEDICARE, BC ==
[2016-07-07] MEDS ORDERED: Lactulose Soln 10 GM/15 ML 30 ML UD Cup PO PRN (16:53)
[2016-07-07] MEDS ORDERED: Acetaminophen 500 MG Tab PO PRN (16:53)
[2016-07-07] MEDS ORDERED: Albuterol 0.083% 2.5 MG/3 ML Neb Soln NEB PRN (16:53)
[2016-07-07] MEDS ORDERED: Bisacodyl 5 MG Tab PO PRN (16:53)
[2016-07-07] MEDS ORDERED: Sodium Chloride 0.9% 10 ML Syringe FLUSH PRN (16:53)
[2016-07-07] MEDS: Levofloxacin 250 MG Tab PO SCH (20:04)
[2016-07-07] MEDS: Warfarin 5 MG Tab PO SCH (20:05)
[2016-07-07] MEDS: Formoterol/Mometasone 200-5 MCG 8.8 GM Inhaler IH SCH (20:06)
[2016-07-08] MEDS: predniSONE 20 MG Tab PO SCH (07:54)
[2016-07-08] MEDS: Diltiazem 180 MG Cap.CD PO SCH (07:54)
[2016-07-08] MEDS: Furosemide 20 MG Tab PO SCH ×2 (07:55→15:24)
[2016-07-08] MEDS: Magnesium Oxide 400 MG Tab PO SCH (07:55)
[2016-07-08] MEDS: Metoprolol Succinate 25 MG Tab.ER PO SCH (07:56)
[2016-07-08] MEDS: Allopurinol 300 MG Tab PO SCH (07:56)
[2016-07-08] MEDS: Spironolactone 25 MG Tab PO SCH (07:58)
[2016-07-08] MEDS: Formoterol/Mometasone 200-5 MCG 8.8 GM Inhaler IH SCH ×2 (07:59→20:53)
[2016-07-08] MEDS: Tiotropium Inhaler 18 MCG Inhalation Powder Cap Kit of 5 INH SCH (08:00)
[2016-07-08] MEDS: Warfarin 5 MG Tab PO SCH (20:52)
[2016-07-08] MEDS: Levofloxacin 250 MG Tab PO SCH (20:52)
[2016-07-09] MEDS: Metoprolol Succinate 25 MG Tab.ER PO SCH (08:17)
[2016-07-09] MEDS: predniSONE 20 MG Tab PO SCH (08:18)
[2016-07-09] MEDS: Spironolactone 25 MG Tab PO SCH (08:19)
[2016-07-09] MEDS: Diltiazem 180 MG Cap.CD PO SCH (08:21)
[2016-07-09] MEDS: Furosemide 20 MG Tab PO SCH ×2 (08:21→16:14)
[2016-07-09] MEDS: Allopurinol 300 MG Tab PO SCH (08:21)
[2016-07-09] MEDS: Magnesium Oxide 400 MG Tab PO SCH (08:22)
[2016-07-09] MEDS: Formoterol/Mometasone 200-5 MCG 8.8 GM Inhaler IH SCH ×3 (08:23→19:03)
[2016-07-09] MEDS: Tiotropium Inhaler 18 MCG Inhalation Powder Cap Kit of 5 INH SCH (08:23)
[2016-07-09] MEDS: Warfarin 5 MG Tab PO SCH ×2 (18:55→19:02)
[2016-07-09] MEDS: Levofloxacin 250 MG Tab PO SCH ×2 (18:55→19:29)
[2016-07-10] MEDS: Magnesium Oxide 400 MG Tab PO SCH (08:34)
[2016-07-10] MEDS: Metoprolol Succinate 25 MG Tab.ER PO SCH (08:34)
[2016-07-10] MEDS: Furosemide 20 MG Tab PO SCH ×2 (08:34→15:40)
[2016-07-10] MEDS: Allopurinol 300 MG Tab PO SCH (08:34)
[2016-07-10] MEDS: Diltiazem 180 MG Cap.CD PO SCH (08:34)
[2016-07-10] MEDS: predniSONE 20 MG Tab PO SCH (08:35)
[2016-07-10] MEDS: Spironolactone 25 MG Tab PO SCH (08:35)
[2016-07-10] MEDS: Tiotropium Inhaler 18 MCG Inhalation Powder Cap Kit of 5 INH SCH (08:36)
[2016-07-10] MEDS: Formoterol/Mometasone 200-5 MCG 8.8 GM Inhaler IH SCH ×2 (08:36→19:43)
[2016-07-10] MEDS: Levofloxacin 250 MG Tab PO SCH (19:43)
[2016-07-11 06:40] VITALS: BP 137/72
[2016-07-11] MEDS: Formoterol/Mometasone 200-5 MCG 8.8 GM Inhaler IH SCH (08:25)
[2016-07-11] MEDS: Tiotropium Inhaler 18 MCG Inhalation Powder Cap Kit of 5 INH SCH (08:25)
[2016-07-11] MEDS: Furosemide 20 MG Tab PO SCH (08:26)
[2016-07-11] MEDS: Allopurinol 300 MG Tab PO SCH (08:26)
[2016-07-11] MEDS: Metoprolol Succinate 25 MG Tab.ER PO SCH (08:26)
[2016-07-11] MEDS: Diltiazem 180 MG Cap.CD PO SCH (08:26)
[2016-07-11] MEDS: Magnesium Oxide 400 MG Tab PO SCH (08:26)
[2016-07-11] MEDS: Spironolactone 25 MG Tab PO SCH (08:26)
--- NOTE | 2016-07-11 13:29 | PCM.DCSUM1 ---
Discharge Summary - Hospital Course Free Text/Narrative:: Patient admitted to swing bed after an acute stay for COPD exacerbation and a complicated pseudomonas UTI with urostomy and bladder stones. He participated with therapies and was improved by discharge with his mobility. His Inr was therapeutic on d/c and insturctions were given to the INR clinic also. He had no fevers during his stay. - Discharge Data Discharge Date: 07/11/16 Discharge Disposition: Home, W Home Health Agency 06 Condition: Fair - Patient Summary/Data Consults: Consultations 07/07/16 16:53 Consult to Sales Person [CONS] Routine OT Evaluation and Treatment [CONS] Routine PT Evaluation and Treatment [CONS] Routine - Patient Instructions Diet: Heart Healthy Diet Activity: As Tolerated Driving: Do Not Drive Wound/Incision Care: Keep Operative Site/Wound Site Clean and Dry Notify Provider of: Fever, Increased Pain, Swelling and Redness, Nausea and/or Vomiting Other/Special Instructions: Recheck with Dr. Monique on July 23 at 8:50 am. INR again on 07/14 to be drawn by Home Health. Hold coumadin tonight and restart on 07/12 at 2.5 mg daily. Continue Levaquin 250 mg daily for 1 week, I will check with Dr. Dumont about keeping you on antibiotics again to prevent infections. Continue your oxygen. BMP and CBC to be drawn by home health prior to your visit with me if you are off home health by then come to the clinic and have it done. Home PT on discharge - Discharge Plan Prescriptions/Med Rec: Levofloxacin 250 mg PO DAILY #7 tablet Home Medications: Home Meds Albuterol [Proair HFA] 1 - 2 puff INH Q4H PRN 09/10/14 [History] Allopurinol [Zyloprim] 300 mg PO DAILY 09/10/14 [History] Tiotropium [Spiriva HandiHaler] 1 puff PO DAILY 12/24/14 [History] Metoprolol Succinate [Toprol XL] 25 mg PO DAILY #30 tab.er 07/20/15 [Rx] Spironolactone [Aldactone] 12.5 mg PO DAILY #15 tablet 07/20/15 [Rx] Furosemide 20 mg PO BID 01/26/16 [History] Magnesium Oxide [Magnesium] 500 mg PO DAILY 01/26/16 [History] Acetaminophen 1,000 mg PO TID PRN 07/04/16 [History] Diltiazem HCl [Cartia Xt] 180 mg PO DAILY 07/04/16 [History] Bisacodyl [Dulcolax] 5 mg PO DAILY PRN 07/07/16 [History] Docusate Sodium/Sennosides [Senna Plus] 1 tab PO BID 07/07/16 [History] Lactulose [Cephulac] 20 gm PO TID PRN 07/07/16 [History] Mometasone/Formoterol [Dulera 200-5 MCG] 2 puff IH BIDRT 07/07/16 [History] Levofloxacin 250 mg PO DAILY #7 tablet 07/11/16 [Rx] Warfarin [Coumadin] 2.5 mg PO DAILY #0 07/11/16 [Rx] - Discharge Summary/Plan Comment DC Time >30 min.: No Discharge Summary/Plan Comment: Patient requires home health to teach and monitor for signs and symptoms of CHF and COPD. He will need lab and INR checks at home. He will need further home PT to assist with mobility. Due to heart failure and using a walker in addition to short term memory loss absences from home are infrequent and require the assist of another person. I will periodically review this plan of care. He was seen on s date for his face to face visit. - General Info Date of Service: 07/11/16 Functional Status: Reports: pain controlled - Review of Systems General: Reports: No Symptoms Pulmonary: Reports: cough (his cough is not worse than his regular cough) Cardiovascular: Reports: No Symptoms Gastrointestinal: Reports: No symptoms. Denies: Diarrhea Genitourinary: Reports: no symptoms - Patient Data Vitals - Most Recent: Last Vital Signs Temp 96.9 F 07/11/16 06:00 Pulse 74 07/11/16 08:26 Resp 18 07/11/16 06:00 BP 137/72 07/11/16 08:26 Pulse Ox 95 07/11/16 08:00 Weight - Most Recent: 90.265 kg I&O - Last 24 hours: Intake & Output 07/10/16 07/11/16 07/11/16 22:59 06:59 14:59 Intake Total 180 360 Output Total 750 3400 Balance -570 -3400 360 Lab Results - Last 24 hrs: Laboratory Results - last 24 hr 07/11/16 Range/Units 06:45 PT 39.0 H (10.0-12.8) SEC INR 3.4 (2.0-3.5) Med Orders - Current: Current Medications Acetaminophen (Tylenol Extra Strength) 1,000 mg PO TID PRN PRN Reason: Pain Albuterol (Proventil Neb Soln) 2.5 mg NEB Q4H PRN PRN Reason: Shortness of Breath Allopurinol (Zyloprim) 300 mg PO DAILY [facility] Last Admin: 07/11/16 08:26 Dose: 300 mg Bisacodyl (Dulcolax) 5 mg PO DAILY PRN PRN Reason: Constipation Diltiazem HCl (Cardizem Cd) 180 mg PO DAILY [facility] Last Admin: 07/11/16 08:26 Dose: 180 mg Furosemide (Lasix) 20 mg PO BIDDIURETIC [facility] Last Admin: 07/11/16 08:26 Dose: 20 mg Lactulose (Cephulac) 20 gm PO TID PRN PRN Reason: Constipation Levofloxacin (Levaquin) 250 mg PO Q24H [facility] Stop: 07/11/16 23:00 Last Admin: 07/10/16 19:43 Dose: 250 mg Magnesium Oxide (Magnesium Oxide) 400 mg PO DAILY [facility] Last Admin: 07/11/16 08:26 Dose: 400 mg Metoprolol Succinate (Toprol Xl) 25 mg PO DAILY [facility] Last Admin: 07/11/16 08:26 Dose: 25 mg Mometasone Furoate/Formoterol Fumar (Dulera 200-5 Mcg) 2 puff IH BID [facility] Last Admin: 07/11/16 08:25 Dose: 2 inhalation Senna/Docusate Sodium (Senna Plus) 1 tab PO BID [facility] Last Admin: 07/11/16 08:26 Dose: 1 tab Sodium Chloride (Saline Flush) 10 ml FLUSH ASDIRECTED PRN PRN Reason: Keep Vein Open Spironolactone (Aldactone) 12.5 mg PO DAILY [facility] Last Admin: 07/11/16 08:26 Dose: 12.5 mg Tiotropium Hatch (Spiriva Handihaler) 18 mcg INH DAILY [facility] Last Admin: 07/11/16 08:25 Dose: 18 mcg Warfarin Sodium (Coumadin) 5 mg PO SUMOTUWETHSA@1999 [facility] Last Admin: 07/09/16 19:02 Dose: Not Given Warfarin Sodium (Coumadin) 2.5 mg PO Fr@1999 [facility] Discontinued Medications Prednisone (Prednisone) 40 mg PO WITHBREAKFAST [facility] Stop: 07/10/16 23:00 Last Admin: 07/10/16 08:35 Dose: 40 mg - Exam Quality Assessment: Reports: supplemental oxygen General: Reports: alert, oriented HEENT: Reports: Pupils equal Neck: Reports: supple Lungs: Reports: Decreased breath sounds Cardiovascular: Reports: Irregular Rhythm, Murmurs Abdomen: Reports: bowel sounds present, soft, no tenderness (urostomy in place) Extremities: Reports: no edema Skin: Reports: warm, dry *Q Meaningful Use (DIS) - VTE *Q VTE Criteria *Q: VTE Anticoagulation Contraindications: Med/tx not indicated/need - Stroke *Q Stroke Criteria *Q: - AMI *Q AMI Criteria *Q:
[2016-07-11] MEDS ORDERED: Warfarin 2.5 MG Tab PO SCH (20:00)
== END 2016-07-11 12:15 | disposition home health service (06) | DRG 690 ==
LOC: VM.MS 16:30
PROVIDERS: ADMIT Internal Medicine; ATTEND Internal Medicine
DX: N39.0 Urinary tract infection, site not specified (principal); J44.1 Chronic obstructive pulmonary disease with (acute) exacerbation; I50.32 Chronic diastolic (congestive) heart failure; B96.5 Pseudomonas (aeruginosa) (mallei) (pseudomallei) as the cause of diseases classified elsewhere; I48.2 Chronic atrial fibrillation; Z79.01 Long term (current) use of anticoagulants; N18.9 Chronic kidney disease, unspecified; Z86.711 Personal history of pulmonary embolism; Z85.51 Personal history of malignant neoplasm of bladder
CPT/HCPCS: 36415; 85610; 94760; 97110-GP; 97116-GP; 97165-GO; A9270-GY

== ENCOUNTER 2016-07-24 17:10 | Emergency (ER) | payer MEDICARE, BC | END 2016-07-24 17:43 | disposition home or self-care (01) | LOC: VM.ED 17:10 | DX: Z53.21 Procedure and treatment not carried out due to patient leaving prior to being seen by health care provider (principal) ==

== ENCOUNTER 2016-09-09 14:32 | Inpatient (IN) | payer MEDICARE, BC ==
[2016-09-09] MEDS ORDERED: Sodium Chloride 0.9% 10 ML Syringe FLUSH PRN (15:22)
[2016-09-09] MEDS ORDERED: Furosemide 20 MG/2 ML VIAL IVPUSH ONE (16:27)
[2016-09-09] MEDS: Cefepime 1 GM in Sodium Chloride 0.9% 100 ML IV SCH (16:28)
--- NOTE | 2016-09-09 16:42 | PCM.HP ---
H&P History of Present Illness - General Date of Service: 09/09/16 Admit Problem/Dx: Admission Diagnosis/Problem Admission Diagnosis/Problem UTI, Urinary tract infection following delivery Source of Information: Patient, Family History Limitations: Reports: No Limitations - History of Present Illness Initial Comments - Free Text/Narative: Mr. Aragon is an 81-year-old gentleman who presents to clinic today primarily for increased weakness over the past 24 hours. I had seen him in early August for an appointment to establish care. He and his daughter were concerned about some borderline low blood pressures and we decided to discontinue his spironolactone. Since then, he is actually been feeling quite well. However, over the past week, his home health nurse has been concerned about weight gain. She has also felt that he is not quite as strong as he was previously. Over the past 24 hours, it has been noted that the urine in his urostomy bag was quite malodorous. It also appeared darker and had increased sediment. Over the course of the day today, he became progressively more weak and his daughter became concerned about the possibility of a UTI. He does not feel that he has been more short of breath recently or that he has had increased leg swelling. He has had a cough over the past week. He has not had any fever, chills, or chest pain. He does not feel quite as weak as he usually does with his UTIs but admits that we may have caught this one sooner. He is currently on antibiotics daily in order to try to prevent UTIs. - Related Data Allergies/Adverse Reactions: Allergies Allergy/AdvReac Type Severity Reaction Status Date / Time No Known Allergies Allergy Verified 04/07/16 19:44 Home Medications: Home Meds Albuterol [Proair HFA] 1 - 2 puff INH Q4H PRN 09/10/14 [History] Allopurinol [Zyloprim] 300 mg PO DAILY 09/10/14 [History] Tiotropium [Spiriva HandiHaler] 1 puff PO DAILY 12/24/14 [History] Metoprolol Succinate [Toprol XL] 25 mg PO DAILY #30 tab.er 07/20/15 [Rx] Furosemide 20 mg PO DAILY 01/26/16 [History] Magnesium Oxide [Magnesium] 500 mg PO DAILY 01/26/16 [History] Acetaminophen 1,000 mg PO Q4HR PRN 07/04/16 [History] Diltiazem HCl [Cartia Xt] 180 mg PO DAILY 07/04/16 [History] Bisacodyl [Dulcolax] 5 mg PO DAILY PRN 07/07/16 [History] Docusate Sodium/Sennosides [Senna Plus] 1 tab PO BID 07/07/16 [History] Warfarin [Coumadin] 2.5 mg PO DAILY #0 07/11/16 [Rx] Albuterol [Proventil Neb Soln] 2.5 mg NEB Q4HRRT PRN 09/09/16 [History] Budesonide/Formoterol [Symbicort 160-4.5 MCG] 2 puff INH BID 09/09/16 [History] Cranberry Extract [Cranberry] 500 mg PO DAILY 09/09/16 [History] Lactobacillus Combination No.4 [Probiotic] 1 each PO DAILY 09/09/16 [History] Lactulose [Generlac] 30 ml PO DAILY PRN 09/09/16 [History] Lactulose [Generlac] 30 ml PO TID PRN 09/09/16 [History] Multivitamin [Multi-Vitamin Daily] 1 each PO DAILY 09/09/16 [History] Wheat Dextrin/L.acid/Aspartame [Fiber with Probiotic Powder] 1 dose PO DAILY [History] Past Medical History HEENT History: Reports: Impaired Vision Cardiovascular History: Reports: Afib, Aneurysm, Heart Failure, High Cholesterol , Hypertension, Pulmonary Hypertension, Other (See Below) Other Cardiovascular History: AAA Respiratory History: Reports: COPD, PE, SOB Other Respiratory History: hypoxia, oxygen dependent Gastrointestinal History: Reports: Chronic Constipation Genitourinary History: Reports: Hydronephrosis, Renal Calculus, UTI, Recurrent Other Genitourinary History: kidney stones Musculoskeletal History: Reports: Gout, Other (See Below) Other Musculoskeletal History: collapsed vertebra, compression fracture of spine Neurological History: Reports: Other (See Below) Other Neuro History: mild cognitive impairment Psychiatric History: Reports: Other (See Below) Other Psychiatric History: adjustment disorder Endocrine/Metabolic History: Reports: None Hematologic History: Reports: Other (See Below) Other Hematologic History: coumadin therapy Immunologic History: Reports: None Oncologic (Cancer) History: Reports: Bladder Dermatologic History: Reports: Other (See Below) Other Dermatologic History: lymphadenopathy - Infectious Disease History Infectious Disease History: Reports: None - Past Surgical History HEENT Surgical History: Reports: Cataract Surgery Cardiovascular Surgical History: Reports: AAA repair GI Surgical History: Reports: Hernia, Inguinal Male Surgical History: Reports: Cystectomy, TURP-Transurethral Resection of Prostate Social & Family History - Family History Cardiac: Reports: CAD Respiratory: Reports: None GI: Reports: None : Reports: None OBGYN: Reports: None Musculoskeletal: Reports: Arthritis Neurological: Reports: None Psychiatric: Reports: None Endocrine/Metabolic: Reports: Diabetes, type II Hematologic: Reports: None Immunologic: Reports: None Oncologic: Reports: Bladder, Breast, Colon, Skin - Tobacco Use Smoking Status *Q: Former Smoker Years of Tobacco use: 5 Packs/Tins Daily: 0.5 Used Tobacco, but Quit: No Month Tobacco Last Used: unknown Second Hand Smoke Exposure: No - Caffeine Use Caffeine Use: Reports: None - Alcohol Use Alcohol Use History: No Days Per Week of Alcohol Use: 0 Alcohol Use in Last Twelve Months: No - Recreational Drug Use Recreational Drug Use: No - Living Situation & Occupation Living situation: Reports: , Alone Occupation: Retired H&P Review of Systems - Review of Systems: Review Of Systems: See Below General: Reports: No Symptoms HEENT: Reports: No Symptoms Pulmonary: Reports: Cough. Denies: Shortness of Breath, Wheezing Cardiovascular: Reports: No Symptoms Gastrointestinal: Reports: No Symptoms Genitourinary: Reports: Other (See HPI.) Musculoskeletal: Reports: No Symptoms Skin: Reports: No Symptoms Neurological: Reports: No Symptoms Exam - Exam Exam: See Below - Vital Signs Vital Signs: Last Vital Signs Temp 36.9 C 09/09/16 15:10 Pulse 72 09/09/16 15:10 Resp 24 H 09/09/16 15:10 BP 103/67 09/09/16 15:10 Pulse Ox 90 L 09/09/16 15:10 Weight: 92.079 kg - Exam General: Alert, Cooperative HEENT: Conjunctiva Clear, Posterior Pharynx Clear, Pupils Equal, Pupils Reactive Neck: Supple, Trachea Midline. No: Lymphadenopathy, Thyromegaly Lungs: Normal Respiratory Effort, Decreased Breath Sounds (L>R). No: Crackles Cardiovascular: Regular Rate, Normal S1, Normal S2, Irregular Rhythm. No: Systolic Murmur, Diastolic Murmur Abdomen: Normal Bowel Sounds, Soft, Other (urine in urostomy bag is quite dark with sediment noted). No: Organomegaly, Distention Back Exam: No: CVA Tenderness (L), CVA Tenderness (R) Extremities: Normal Inspection, Normal Pulses, Edema (1+ to just below the knee bilaterally) Skin: Warm, Dry, Intact Neurological: Normal Speech. No: Focal Deficit - Patient Data Lab Results Last 24 hrs: Laboratory Results - last 24 hr 09/09/16 09/09/16 Range/Units 15:39 15:39 PT 19.6 H D (10.0-12.8) SEC INR 1.7 L (2.0-3.5) B-Natriuretic Peptide 5635 H (<=450) pg/mL *Q Meaningful Use (ADM) - VTE *Q VTE Criteria *Q: VTE Anticoagulation Contraindications: Med/TX not Indicated/Need - Stroke *Q Stroke Criteria *Q: - AMI *Q AMI Criteria *Q: - Problem List (1) Urinary tract infection SNOMED Code(s): 91826880 ICD Code: N39.0 - URINARY TRACT INFECTION, SITE NOT SPECIFIED Status: Acute Current Visit: No Problem Details: - Complicated cystitis. He does not have symptoms of an ascending infection but his WBC would suggest early progression. - Given prior culture results, cefepime would be most appropriate IV therapy. - Based on renal function, dosing is 1 gram q24 hours. - Will also have his urine cultured in clinic (this is where his urine was initially obtained from) so we can tailor PO antibiotics to culture results. Qualifiers: Urinary tract infection type: acute cystitis Hematuria presence: with hematuria Qualified Code(s): N30.01 - Acute cystitis with hematuria (2) CHF exacerbation SNOMED Code(s): 00554490 ICD Code: I50.9 - HEART FAILURE, UNSPECIFIED Status: Acute Current Visit : Yes Problem Details: - CXR is hard to interpret as he always has some degree of cardiomegaly and pulmonary edema. It does appear somewhat worse than usual, though. - Weight is up but he does not have objective evidence of fluid overload on exam. - BNP done to clarify and is significantly elevated. - Will give a dose of IV lasix now. Depending on I/O balance, will likely continue with IV lasix until his weight is down more toward normal. - Could consider restarting aldactone but he was feeling poorly related to low blood pressures while on this; therefore, I would prefer to optimize his lasix first if possible. - CHF is likely the cause of his cough as well. - Cause of CHF is likely UTI vs. adjustment in medications. He has no symptoms of ACS; therefore, I would not do any testing for that at this time. No h/o thyroid disease. - Will expand differential if difficulty with getting him under control. Qualifiers: Congestive heart failure type: diastolic Qualified Code(s): I50.33 - Acute on chronic diastolic (congestive) heart failure (3) Weakness SNOMED Code(s): 79964296 ICD Code: R53.1 - WEAKNESS Status: Acute Current Visit: No Problem Details: - Secondary to both #1 and #2 as above. - Depending on how he recovers with treatment of the above, will consider need for PT and OT consults. (4) Chronic anticoagulation SNOMED Code(s): 396979611 ICD Code: Z79.01 - REED [facility]ER (CURRENT) USE OF ANTICOAGULANTS Status: Chronic Current Visit: No Problem Details: - INR is 1.7 on admission. - Continue home warfarin dosing for now. Would not bridge unless INR tomorrow is still persistently subtherapeutic as I would anticipate it to increase while he is on antibiotics. - Recheck INR daily. (5) Chronic atrial fibrillation SNOMED Code(s): 850933545 ICD Code: I48.2 - CHRONIC ATRIAL FIBRILLATION Status: Chronic Current Visit: No Problem Details: - Rates ok at this time. - Continue home medications. (6) Chronic kidney disease SNOMED Code(s): 508997403 ICD Code: N18.9 - CHRONIC KIDNEY DISEASE, UNSPECIFIED Status: Chronic Current Visit: No Problem Details: - Creatinine is at 1.5 today, which looks to be his current baseline per clinic records. - Bump likely prerenal with CHF as the main cause. - Will follow daily. - Avoid nephrotoxic medications. - Renally dose all medications. (7) COPD (chronic obstructive pulmonary disease) SNOMED Code(s): 21161279 ICD Code: J44.9 - CHRONIC OBSTRUCTIVE PULMONARY DISEASE, UNSPECIFIED Status : Chronic Current Visit: Yes Problem Details: - I doubt his cough is related to COPD given absence of other symptoms and significantly elevated BNP. I also doubt pneumonia but this will be covered anyway with UTI antibiotics. - Continue home medications. Qualifiers: COPD type: unspecified COPD Qualified Code(s): J44.9 - Chronic obstructive pulmonary disease, unspecified Problem List Initiated/Reviewed/Updated: Yes Orders Last 24hrs: Active Orders 24 hr Category Date Time Status Admission Status [Patient Status] [ADT] Routine ADT 09/09/16 15:00 Active Notify Provider Vital Signs [RC] ASDIRECTED Care 09/09/16 15:49 Ordered Oxygen Therapy [RC] PRN Care 09/09/16 15:49 Ordered Up With Assistance [RC] ASDIRECTED Care 09/09/16 15:49 Ordered VTE/DVT Education [RC] PER UNIT ROUTINE Care 09/09/16 15:49 Ordered Vital Signs [RC] Q4H Care 09/09/16 15:49 Ordered Regular Diet [DIET] Diet 09/09/16 Dinner Ordered CULTURE MRSA SURVEY [RM] Routine Lab 09/09/16 15:17 Received Cefepime [Maxipime] 1 gm Med 09/09/16 16:00 Ordered Sodium Chloride 0.9% [Normal Saline] 100 ml IV Q24H Furosemide [Lasix] Med 09/09/16 16:27 Once 20 mg IVPUSH NOW ONE Sodium Chloride 0.9% [Saline Flush] Med 09/09/16 15:22 Active 10 ml FLUSH ASDIRECTED PRN Anticoagulation Contraindications VTE [AST] Per Unit Oth 09/09/16 15:49 Ordered Routine Saline Lock Insert [OM.PC] Routine Oth 09/09/16 15:22 Ordered Resuscitation Status Routine Resus Stat 09/09/16 15:49 Ordered Medication Orders Cefepime HCl 1 gm/ Sodium (Chloride) 100 mls @ 200 mls/hr IV Q24H NATALYA Last Admin: 09/09/16 16:28 Dose: 200 mls/hr Sodium Chloride (Saline Flush) 10 ml FLUSH ASDIRECTED PRN PRN Reason: Keep Vein Open Assessment/Plan Comment:: 81 yo gentleman admitted with UTI and CHF exacerbation after presenting to clinic with generalized weakness. See details under problems above. Will treat with IV cefepime (based on previous urine cultures) and IV lasix. Otherwise, continue home medications. Patient will be on acute status. I anticipate he will be admitted for 48-72 hours. Code status is DNR/DNI. He does not require VTE prophylaxis as he is on therapeutic warfarin.
[2016-09-09] MEDS ORDERED: Albuterol 0.083% 2.5 MG/3 ML Neb Soln NEB PRN (17:21)
[2016-09-09] MEDS ORDERED: Bisacodyl 5 MG Tab PO PRN (17:21)
[2016-09-09] MEDS ORDERED: Lactulose Soln 10 GM/15 ML 30 ML UD Cup PO PRN (17:21)
[2016-09-09] MEDS ORDERED: Warfarin 5 MG Tab PO SCH (20:00)
[2016-09-09] MEDS: Formoterol/Mometasone 200-5 MCG 8.8 GM Inhaler IH SCH (20:28)
[2016-09-10] MEDS: Lactobacillus Rhamnosus GG (Probiotic) Cap PO SCH (08:00)
[2016-09-10] MEDS: Diltiazem 180 MG Cap.CD PO SCH (08:00)
[2016-09-10] MEDS: Allopurinol 300 MG Tab PO SCH (08:01)
[2016-09-10] MEDS: Metoprolol Succinate 25 MG Tab.ER PO SCH (08:01)
[2016-09-10] MEDS: Cranberry 500 MG Cap PO SCH (08:02)
[2016-09-10] MEDS: Formoterol/Mometasone 200-5 MCG 8.8 GM Inhaler IH SCH ×2 (08:03→19:47)
[2016-09-10] MEDS: Magnesium Oxide 400 MG Tab PO SCH (08:03)
[2016-09-10] MEDS: Tiotropium Inhaler 18 MCG Inhalation Powder Cap Kit of 5 INH SCH (08:07)
--- NOTE | 2016-09-10 10:16 | PCM.PN ---
- General Info Date of Service: 09/10/16 Subjective Update: Did not sleep well last night. Does feel stronger this morning and was able to sit up in bed on his own. He is wondering if he can go home today. He has not been out of bed yet. He denies any chest pain, shortness of breath, fever, or chills. The urine in his urostomy bag is much clearer today. - Review of Systems General: Reports: No Symptoms HEENT: Reports: no symptoms Pulmonary: Reports: no symptoms Cardiovascular: Reports: No Symptoms Gastrointestinal: Reports: No symptoms Genitourinary: Reports: no symptoms Musculoskeletal: Reports: no symptoms Skin: Reports: no symptoms - Patient Data Vitals - most recent: Last Vital Signs Temp 37.3 C 09/10/16 10:00 Pulse 83 09/10/16 10:00 Resp 18 09/10/16 10:00 BP 94/59 L 09/10/16 10:00 Pulse Ox 93 L 09/10/16 10:00 Weight - most recent: 92.079 kg I&O - last 24 hours: Intake & Output 09/09/16 09/10/16 09/10/16 22:59 06:59 14:59 Intake Total 300 240 804 Output Total 600 1550 Balance -300 -1310 804 Lab Results last 24 hrs: Laboratory Results - last 24 hr 09/09/16 09/09/16 09/10/16 Range/Units 15:39 15:39 06:30 WBC 12.7 H (4.0-10.0) x10^3/uL RBC 3.74 L (4.5-6.0) x10^6/uL Hgb 13.2 L D (14.0-18.0) g/dL Hct 38.0 L (40.0-52.0) % MCV 101.6 H (78.0-93.0) fL MCH 35.3 H (26.0-32.0) pg MCHC 34.7 (32.0-36.0) g/dL RDW Coeff of Lety 14.4 (10.0-15.0) % Plt Count 144 (130-400) x10^3/uL Neut % (Auto) 66.3 (50.0-80.0) % Lymph % (Auto) 20.9 L (25.0-50.0) % [place] % (Auto) 12.3 H (2.0-11.0) % Eos % (Auto) 0.3 (0.0-4.0) % Baso % (Auto) 0.2 (0.2-1.2) % PT 19.6 H D (10.0-12.8) SEC INR 1.7 L (2.0-3.5) Sodium (136-145) mmol/L Potassium (3.5-5.1) mmol/L Chloride (98-107) mmol/L Carbon Dioxide (21-32) mmol/L BUN (7-18) mg/dL Creatinine (0.70-1.30) mg/dL Est Cr Clr Drug Dosing mL/min Estimated GFR (MDRD) Glucose (74-106) mg/dL Calcium (8.5-10.1) mg/dL B-Natriuretic Peptide 5635 H (<=450) pg/mL 09/10/16 09/10/16 Range/Units 06:30 06:30 WBC (4.0-10.0) x10^3/uL RBC (4.5-6.0) x10^6/uL Hgb (14.0-18.0) g/dL Hct (40.0-52.0) % MCV (78.0-93.0) fL MCH (26.0-32.0) pg MCHC (32.0-36.0) g/dL RDW Coeff of Lety (10.0-15.0) % Plt Count (130-400) x10^3/uL Neut % (Auto) (50.0-80.0) % Lymph % (Auto) (25.0-50.0) % [place] % (Auto) (2.0-11.0) % Eos % (Auto) (0.0-4.0) % Baso % (Auto) (0.2-1.2) % PT 17.0 H (10.0-12.8) SEC INR 1.5 L (2.0-3.5) Sodium 138 (136-145) mmol/L Potassium 3.6 (3.5-5.1) mmol/L Chloride 102 (98-107) mmol/L Carbon Dioxide 28 (21-32) mmol/L BUN 30 H (7-18) mg/dL Creatinine 1.6 H (0.70-1.30) mg/dL Est Cr Clr Drug Dosing 38.40 mL/min Estimated GFR (MDRD) 41 Glucose 106 (74-106) mg/dL Calcium 8.2 L (8.5-10.1) mg/dL B-Natriuretic Peptide (<=450) pg/mL Med Orders - Current: Current Medications Albuterol (Proventil Neb Soln) 2.5 mg NEB QID PRN PRN Reason: Shortness of Breath Allopurinol (Zyloprim) 300 mg PO DAILY [facility] Last Admin: 09/10/16 08:01 Dose: 300 mg Bisacodyl (Dulcolax) 5 mg PO DAILY PRN PRN Reason: Constipation Cranberry (Cranberry) 500 mg PO DAILY [facility] Last Admin: 09/10/16 08:02 Dose: 500 mg Diltiazem HCl (Cardizem Cd) 180 mg PO DAILY [facility] Last Admin: 09/10/16 08:00 Dose: 180 mg Furosemide (Lasix) 40 mg PO BIDDIURETIC [facility] Cefepime HCl 1 gm/ Sodium (Chloride) 100 mls @ 200 mls/hr IV Q24H [facility] Last Admin: 09/09/16 16:28 Dose: 200 mls/hr Lactobacillus Rhamnosus (Culturelle) 1 cap PO DAILY [facility] Last Admin: 09/10/16 08:00 Dose: 1 cap Lactulose (Cephulac) 20 gm PO TID PRN PRN Reason: Constipation Magnesium Oxide (Magnesium Oxide) 400 mg PO DAILY [facility] Last Admin: 09/10/16 08:03 Dose: 400 mg Metoprolol Succinate (Toprol Xl) 25 mg PO DAILY [facility] Last Admin: 09/10/16 08:01 Dose: 25 mg Mometasone Furoate/Formoterol Fumar (Dulera 200-5 Mcg) 0 puff IH BID [facility] Last Admin: 09/10/16 08:03 Dose: 2 puff Senna/Docusate Sodium (Senna Plus) 1 tab PO BID [facility] Last Admin: 09/10/16 08:00 Dose: 1 tab Sodium Chloride (Saline Flush) 10 ml FLUSH ASDIRECTED PRN PRN Reason: Keep Vein Open Tiotropium [place] (Spiriva Handihaler) 18 mcg INH DAILY [facility] Last Admin: 09/10/16 08:07 Dose: 1 dose Warfarin Sodium (Coumadin) 7.5 mg PO ONETIME ONE Stop: 09/10/16 20:01 Discontinued Medications Furosemide (Lasix) 20 mg IVPUSH NOW ONE Stop: 09/09/16 16:28 Last Admin: 09/09/16 16:50 Dose: 20 mg Warfarin Sodium (Coumadin) 2.5 mg PO MOFR@20 NATALYA Warfarin Sodium (Coumadin) 5 mg PO SUTUWETHSA@20 NATALYA Last Admin: 09/09/16 20:19 Dose: 5 mg - Exam General: alert, oriented, cooperative, no acute distress HEENT: Mucous membr. moist/pink Neck: supple, no thyromegaly. No: lymphadenopathy Lungs: Clear to auscultation, Normal respiratory effort, Decreased breath sounds (diffusely) Cardiovascular: Regular Rate, No Murmurs, Irregular Rhythm Abdomen: bowel sounds present, soft, no tenderness, no distension (Male) Exam: Other (urine in urostomy bag is clear yellow in color) Extremities: normal pulses, edema (trace bilaterally) Skin: warm, dry, intact - Problem List & Annotations (1) Urinary tract infection SNOMED Code(s): 12128084 Code(s): N39.0 - URINARY TRACT INFECTION, SITE NOT SPECIFIED Status: Acute Current Visit: No Qualifiers: Urinary tract infection type: acute cystitis Hematuria presence: with hematuria Qualified Code(s): N30.01 - Acute cystitis with hematuria Annotation/Comment:: - Complicated cystitis. He does not have symptoms of an ascending infection but his WBC would suggest early progression. WBC downtrending today. - Given prior culture results, cefepime would be most appropriate IV therapy. - Based on renal function, dosing is 1 gram q24 hours. - Will continue the cefepime until tomorrow. Hopefully we will have preliminary culture data to base transition to PO on. He will likely be going out on cipro again. - Will also have his urine cultured in clinic (this is where his urine was initially obtained from) so we can tailor PO antibiotics to culture results. (2) CHF exacerbation SNOMED Code(s): 63195452 Code(s): I50.9 - HEART FAILURE, UNSPECIFIED Status: Acute Current Visit: Yes Qualifiers: Congestive heart failure type: diastolic Qualified Code(s): I50.33 - Acute on chronic diastolic (congestive) heart failure Annotation/Comment:: - CXR is hard to interpret as he always has some degree of cardiomegaly and pulmonary edema. It does appear somewhat worse than usual, though. BNP also significantly elevated. - Weight is up but he has 0 evidence of fluid overload on exam (leg edema is minimal, no crackles on lung exam). - He got a dose of IV lasix last night but in the absence of symptoms or objective exam findings, I will switch him back to PO lasix today at a dose of 40 mg BID. - Will reconsider IV dosing if weight is up further today. - CHF is likely the cause of his cough as well. - Cause of CHF is likely UTI vs. adjustment in medications. He has no symptoms of ACS; therefore, I would not do any testing for that at this time. No h/o thyroid disease. (3) Weakness SNOMED Code(s): 93279987 Code(s): R53.1 - WEAKNESS Status: Acute Current Visit: No Annotation/ Comment:: - Secondary to both #1 and #2 as above. - Depending on how he recovers with treatment of the above, will consider need for PT and OT consults. (4) Chronic anticoagulation SNOMED Code(s): 443340831 Code(s): Z79.01 - [facility] (CURRENT) USE OF ANTICOAGULANTS Status: Chronic Current Visit: No Annotation/Comment:: - INR 1.5 today. - On review with pharmacy (who also reviewed with the [place]), no lovenox is needed. Just increase warfarin dose to 7.5 mg for tonight. - Recheck INR daily. (5) Chronic atrial fibrillation SNOMED Code(s): 413640421 Code(s): I48.2 - CHRONIC ATRIAL FIBRILLATION Status: Chronic Current Visit: No Annotation/Comment:: - Rates ok at this time. - Continue home medications. (6) Chronic kidney disease SNOMED Code(s): 334644350 Code(s): N18.9 - CHRONIC KIDNEY DISEASE, UNSPECIFIED Status: Chronic Current Visit: No Annotation/Comment:: - Creatinine is at 1.6 today, which is up from yesterday. In further review, I do suspect his baseline to be more in the range of 1.4-1.6. - Would avoid IV fluids if possible given elevated BNP; have him push PO's today and recheck tomorrow. - Will follow daily. - Avoid nephrotoxic medications. - Renally dose all medications. (7) COPD (chronic obstructive pulmonary disease) SNOMED Code(s): 68465346 Code(s): J44.9 - CHRONIC OBSTRUCTIVE PULMONARY DISEASE, UNSPECIFIED Status : Chronic Current Visit: Yes Qualifiers: COPD type: unspecified COPD Qualified Code(s): J44.9 - Chronic obstructive pulmonary disease, unspecified Annotation/Comment:: - I doubt his cough is related to COPD given absence of other symptoms and significantly elevated BNP. I also doubt pneumonia but this will be covered anyway with UTI antibiotics. - Continue home medications. - Problem List Review Problem List Initiated/Reviewed/Updated: Yes - My Orders Last 24 Hours: My Active Orders 09/09/16 15:00 Admission Status [Patient Status] [ADT] Routine 09/09/16 15:17 CULTURE MRSA SURVEY [RM] Routine 09/09/16 15:22 Sodium Chloride 0.9% [Saline Flush] 10 ml FLUSH ASDIRECTED PRN Saline Lock Insert [OM.PC] Routine 09/09/16 15:49 Notify Provider Vital Signs [RC] .PRN Oxygen Therapy [RC] .PRN Up With Assistance [RC] 08,20 VTE/DVT Education [RC] .PRN Vital Signs [RC] 06,10,14,18,22,02 Anticoagulation Contraindications VTE [AST] Per Unit Routine Resuscitation Status Routine 09/09/16 16:00 Cefepime [Maxipime] 1 gm Sodium Chloride 0.9% [Normal Saline] 100 ml IV Q24H 09/09/16 17:21 Albuterol [Proventil Neb Soln] 2.5 mg NEB QID PRN Bisacodyl [Dulcolax] 5 mg PO DAILY PRN Lactulose [Cephulac] 20 gm PO TID PRN 09/09/16 20:00 Docusate Sodium/Sennosides [Senna Plus] 1 tab PO BID Mometasone/Formoterol [Dulera 200-5 MCG] 0 puff IH BID 09/09/16 Dinner Regular Diet [DIET] 09/10/16 06:58 RT Aerosol Therapy [RC] PRN 09/10/16 08:00 Allopurinol [Zyloprim] 300 mg PO DAILY Cranberry 500 mg PO DAILY Diltiazem [Cardizem CD] 180 mg PO DAILY Lactobacillus Rhamnosus GG [Culturelle] 1 cap PO DAILY Magnesium Oxide 400 mg PO DAILY Metoprolol Succinate [Toprol XL] 25 mg PO DAILY Tiotropium [Spiriva HandiHaler] 18 mcg INH DAILY 09/10/16 09:15 Furosemide [Lasix] 40 mg PO BIDDIURETIC 09/10/16 20:00 Warfarin [Coumadin] 7.5 mg PO ONETIME ONE 09/11/16 05:11 BASIC METABOLIC PANEL,BMP [CHEM] Routine CBC WITH AUTO DIFF [HEME] Routine INR,PT,PROTHROMBIN TIME [COAG] Routine - Assessment Assessment:: 81 yo male admitted with UTI after presenting to clinic with weakness. Symptoms , urine appearance, and labs are improving. - Plan Plan:: See details under problems above. Will treat with IV cefepime (based on previous urine cultures); switch to PO lasix today. Otherwise, continue home medications. Patient will be on acute status. I anticipate he will be dismissed tomorrow or the following day. Code status is DNR/DNI. He does not require VTE prophylaxis as he is on therapeutic warfarin. Did review subtherapeutic INR with pharmacy and they do not feel he needs lovenox. Will follow INR daily.
[2016-09-10] MEDS: Furosemide 40 MG Tab PO SCH ×2 (11:40→16:52)
[2016-09-10] MEDS: Cefepime 1 GM in Sodium Chloride 0.9% 100 ML IV SCH (16:52)
[2016-09-10] MEDS ORDERED: Warfarin 2.5 MG Tab PO SCH (20:00)
[2016-09-11] MEDS: Cranberry 500 MG Cap PO SCH (07:59)
[2016-09-11] MEDS: Diltiazem 180 MG Cap.CD PO SCH (07:59)
[2016-09-11] MEDS: Furosemide 40 MG Tab PO SCH (08:00)
[2016-09-11] MEDS: Allopurinol 300 MG Tab PO SCH (08:00)
[2016-09-11] MEDS: Metoprolol Succinate 25 MG Tab.ER PO SCH (08:01)
[2016-09-11] MEDS: Magnesium Oxide 400 MG Tab PO SCH (08:02)
[2016-09-11] MEDS: Lactobacillus Rhamnosus GG (Probiotic) Cap PO SCH (08:03)
[2016-09-11] MEDS: Tiotropium Inhaler 18 MCG Inhalation Powder Cap Kit of 5 INH SCH (08:03)
[2016-09-11] MEDS: Formoterol/Mometasone 200-5 MCG 8.8 GM Inhaler IH SCH (08:03)
--- NOTE | 2016-09-11 08:46 | PCM.DCSUM1 ---
Discharge Summary - Hospital Course Brief History: Mr. Aragon is an 81 yo male who was admitted for a UTI after presenting to clinic with generalized weakness. - Discharge Data Discharge Date: 09/11/16 Discharge Disposition: Home, Self-Care 01 Condition: Good - Discharge Diagnosis/Problem(s) (1) Urinary tract infection SNOMED Code(s): 06159756 ICD Code: N39.0 - URINARY TRACT INFECTION, SITE NOT SPECIFIED Status: Acute Current Visit: No Problem Details: Complicated cystitis by definition. Although he did not have symptoms of an ascending infection, his elevated white blood cell count would suggest early progression. He was admitted and treated with cefepime based on previous susceptibilities. His symptoms improved and he was feeling prepared for dismissal on 09/11. His labs also progressively improved. Urine culture is not completed but will treat with cipro based on previous susceptibilities. I will follow-up on culture results and adjust antibiotics as indicated. Qualifiers: Urinary tract infection type: acute cystitis Hematuria presence: with hematuria Qualified Code(s): N30.01 - Acute cystitis with hematuria (2) CHF exacerbation SNOMED Code(s): 55873881 ICD Code: I50.9 - HEART FAILURE, UNSPECIFIED Status: Acute Current Visit : Yes Problem Details: Chest x-ray was hard to interpret as he always has some degree of cardiomegaly and pulmonary edema. It did appear somewhat worse than usual, though. BNP also significantly elevated. That being said, he did not have any clinical findings of fluid overload. He did get 1 dose of IV lasix on admission and has been on higher PO doses since then. Never developed symptoms of CHF exacerbation. BNP decreased by half as of this morning without any further interventions. Qualifiers: Congestive heart failure type: diastolic Qualified Code(s): I50.33 - Acute on chronic diastolic (congestive) heart failure (3) Weakness SNOMED Code(s): 73799997 ICD Code: R53.1 - WEAKNESS Status: Acute Current Visit: No Problem Details: Secondary to above. He felt his weakness improved significantly and that he was prepared for dismissal home. 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 Discussed again with [place] [facility] and they want another dose of 7.5 mg today with a recheck INR tomorrow. (5) Chronic atrial fibrillation SNOMED Code(s): 636763122 ICD Code: I48.2 - CHRONIC ATRIAL FIBRILLATION Status: Chronic Current Visit: No Problem Details: Rates appropriate during admission. Home medications continued. (6) Chronic kidney disease SNOMED Code(s): 961790832 ICD Code: N18.9 - CHRONIC KIDNEY DISEASE, UNSPECIFIED Status: Chronic Current Visit: No Problem Details: Creatinine peaked at 1.6 yesterday and is back down to 1.4 today, which is his baseline. (7) COPD (chronic obstructive pulmonary disease) SNOMED Code(s): 02241759 ICD Code: J44.9 - CHRONIC OBSTRUCTIVE PULMONARY DISEASE, UNSPECIFIED Status : Chronic Current Visit: Yes Problem Details: No evidence of COPD exacerbation during his admission. Home medications continued. Qualifiers: COPD type: unspecified COPD Qualified Code(s): J44.9 - Chronic obstructive pulmonary disease, unspecified - Patient Summary/Data Operative Procedure(s) Performed: none Complications: none Consults: none Labs Pending at D/C: urine culture Recommended Follow-up Testing/Procedures: none Planned Operative Procedure(s) after DC: none Hospital Course: See details under problems above. He was treated with IV antibiotics and symptoms improved rapidly. He was very interested in dismissal home 09/11 and this is appropriate based on the clinical and laboratory evidence of improvement. - Patient Instructions Diet: Usual Diet as Tolerated Showering/Bathing: July Shower - Discharge Plan Prescriptions/Med Rec: Ciprofloxacin HCl 250 mg PO BID #10 tablet Home Medications: Home Meds Albuterol [Proair HFA] 1 - 2 puff INH Q4H PRN 09/10/14 [History] Allopurinol [Zyloprim] 300 mg PO DAILY 09/10/14 [History] Tiotropium [Spiriva HandiHaler] 1 puff PO DAILY 12/24/14 [History] Metoprolol Succinate [Toprol XL] 25 mg PO DAILY #30 tab.er 07/20/15 [Rx] Magnesium Oxide [Magnesium] 500 mg PO DAILY 01/26/16 [History] Diltiazem HCl [Cartia Xt] 180 mg PO DAILY 07/04/16 [History] Bisacodyl [Dulcolax] 5 mg PO DAILY PRN 07/07/16 [History] Docusate Sodium/Sennosides [Senna Plus] 1 tab PO BID 07/07/16 [History] Albuterol [Proventil Neb Soln] 2.5 mg NEB QID PRN 09/09/16 [History] Budesonide/Formoterol [Symbicort 160-4.5 MCG] 2 puff INH BID 09/09/16 [History] Cranberry Extract [Cranberry] 500 mg PO DAILY 09/09/16 [History] Lactobacillus Combination No.4 [Probiotic] 1 each PO DAILY 09/09/16 [History] Lactulose [Generlac] 30 ml PO TID PRN 09/09/16 [History] Multivitamin [Multi-Vitamin Daily] 1 each PO DAILY 09/09/16 [History] Wheat Dextrin/L.acid/Aspartame [Fiber with Probiotic Powder] 1 dose PO DAILY [History] Acetaminophen 1,000 mg PO TID PRN #0 09/11/16 [Rx] Ciprofloxacin HCl 250 mg PO BID #10 tablet 09/11/16 [Rx] Furosemide [Lasix] 40 mg PO BIDDIURETIC tablet 09/11/16 [Rx] Warfarin [Coumadin] 7.5 mg PO ONETIME #0 09/11/16 [Rx] Referrals: Larisa Ellsworth MD [Primary Care Provider] - 09/18/16 3:40 pm (You have a follow up appt. with Dr. Chasity Ellsworth on September 18, 2016 at 3:[address] [facility]) - Discharge Summary/Plan Comment DC Time >30 min.: No - General Info Date of Service: 09/11/16 Subjective Update: Patient feels well this morning and wishes to go home. Urine is clear. No weakness. ROS otherwise negative as below. - Review of Systems General: Reports: No Symptoms HEENT: Reports: no symptoms Pulmonary: Reports: no symptoms Cardiovascular: Reports: No Symptoms Gastrointestinal: Reports: No symptoms Genitourinary: Reports: no symptoms Musculoskeletal: Reports: no symptoms Skin: Reports: no symptoms Neurological: Reports: No Symptoms - Patient Data Vitals - Most Recent: Last Vital Signs Temp 36.8 C 09/11/16 07:38 Pulse 90 09/11/16 08:01 Resp 19 09/11/16 07:38 BP 104/68 09/11/16 08:01 Pulse Ox 94 L 09/11/16 07:38 Weight - Most Recent: 95.254 kg I&O - Last 24 hours: Intake & Output 09/10/16 09/11/16 09/11/16 22:59 06:59 14:59 Intake Total 820 100 Output Total 650 2200 225 Balance 170 -2200 -125 Lab Results - Last 24 hrs: Laboratory Results - last 24 hr 09/11/16 09/11/16 09/11/16 Range/Units 06:55 06:55 06:55 WBC 10.3 H (4.0-10.0) x10^3/uL RBC 3.88 L (4.5-6.0) x10^6/uL Hgb 13.7 L (14.0-18.0) g/dL Hct 39.1 L (40.0-52.0) % MCV 100.8 H (78.0-93.0) fL MCH 35.3 H (26.0-32.0) pg MCHC 35.0 (32.0-36.0) g/dL RDW Coeff of Lety 14.0 (10.0-15.0) % Plt Count 157 (130-400) x10^3/uL Neut % (Auto) 56.9 (50.0-80.0) % Lymph % (Auto) 27.8 (25.0-50.0) % [place] % (Auto) 13.1 H (2.0-11.0) % Eos % (Auto) 1.9 (0.0-4.0) % Baso % (Auto) 0.3 (0.2-1.2) % PT 17.6 H (10.0-12.8) SEC INR 1.5 L (2.0-3.5) Sodium 140 (136-145) mmol/L Potassium 3.7 (3.5-5.1) mmol/L Chloride 103 (98-107) mmol/L Carbon Dioxide 29 (21-32) mmol/L BUN 32 H (7-18) mg/dL Creatinine 1.4 H (0.70-1.30) mg/dL Est Cr Clr Drug Dosing 43.88 mL/min Estimated GFR (MDRD) 48 Glucose 101 (74-106) mg/dL Calcium 8.3 L (8.5-10.1) mg/dL C-Reactive Protein 12.1 H (<=0.9) mg/dL B-Natriuretic Peptide 2676 H (<=450) pg/mL KIERRA Results - Last 24 hrs: Microbiology 09/09/16 15:17 MRSA Surveillance Culture - Final Nares, Unspecified NO MRSA ISOLATED Med Orders - Current: Current Medications Albuterol (Proventil Neb Soln) 2.5 mg NEB QID PRN PRN Reason: Shortness of Breath Allopurinol (Zyloprim) 300 mg PO DAILY [facility] Last Admin: 09/11/16 08:00 Dose: 300 mg Bisacodyl (Dulcolax) 5 mg PO DAILY PRN PRN Reason: Constipation Cranberry (Cranberry) 500 mg PO DAILY [facility] Last Admin: 09/11/16 07:59 Dose: 500 mg Diltiazem HCl (Cardizem Cd) 180 mg PO DAILY [facility] Last Admin: 09/11/16 07:59 Dose: 180 mg Furosemide (Lasix) 40 mg PO BIDDIURETIC [facility] Last Admin: 09/11/16 08:00 Dose: 40 mg Cefepime HCl 1 gm/ Sodium (Chloride) 100 mls @ 200 mls/hr IV Q24H [facility] Last Admin: 09/10/16 16:52 Dose: 200 mls/hr Lactobacillus Rhamnosus (Culturelle) 1 cap PO DAILY [facility] Last Admin: 09/11/16 08:03 Dose: 1 cap Lactulose (Cephulac) 20 gm PO TID PRN PRN Reason: Constipation Magnesium Oxide (Magnesium Oxide) 400 mg PO DAILY [facility] Last Admin: 09/11/16 08:02 Dose: 400 mg Metoprolol Succinate (Toprol Xl) 25 mg PO DAILY [facility] Last Admin: 09/11/16 08:01 Dose: 25 mg Mometasone Furoate/Formoterol Fumar (Dulera 200-5 Mcg) 0 puff IH BID [facility] Last Admin: 09/11/16 08:03 Dose: 2 puff Senna/Docusate Sodium (Senna Plus) 1 tab PO BID [facility] Last Admin: 09/11/16 07:58 Dose: 1 tab Sodium Chloride (Saline Flush) 10 ml FLUSH ASDIRECTED PRN PRN Reason: Keep Vein Open Tiotropium [place] (Spiriva Handihaler) 18 mcg INH DAILY [facility] Last Admin: 09/11/16 08:03 Dose: 1 dose Discontinued Medications Furosemide (Lasix) 20 mg IVPUSH NOW ONE Stop: 09/09/16 16:28 Last Admin: 09/09/16 16:50 Dose: 20 mg Warfarin Sodium (Coumadin) 2.5 mg PO MOFR@20 NATALYA Warfarin Sodium (Coumadin) 5 mg PO SUTUWETHSA@20 [facility] Last Admin: 09/09/16 20:19 Dose: 5 mg Warfarin Sodium (Coumadin) 7.5 mg PO BEDTIME [facility] Stop: 09/10/16 20:01 Last Admin: 09/10/16 19:47 Dose: 7.5 mg - Exam General: Reports: alert, cooperative, no acute distress Neck: Reports: supple, no thyromegaly. Denies: lymphadenopathy Lungs: Reports: Clear to auscultation, Normal respiratory effort Cardiovascular: Reports: Regular Rate, No Murmurs, Irregular Rhythm Abdomen: Reports: bowel sounds present, soft, no tenderness, no distension Extremities: Reports: no edema, normal pulses Skin: Reports: warm, dry, intact *Q Meaningful Use (DIS) - VTE *Q VTE Criteria *Q: VTE Anticoagulation Contraindications: Med/TX not Indicated/Need - Stroke *Q Stroke Criteria *Q: - AMI *Q AMI Criteria *Q:
[2016-09-11 10:04] VITALS: BP 128/68
[2016-09-12] MEDS ORDERED: Warfarin 2.5 MG Tab PO SCH (20:00)
== END 2016-09-11 10:10 | disposition home or self-care (01) | DRG 689 ==
LOC: VM.MS 14:36
PROVIDERS: ADMIT Family Medicine; ATTEND Family Medicine
DX: N30.01 Acute cystitis with hematuria (principal); I50.33 Acute on chronic diastolic (congestive) heart failure; I13.0 Hypertensive heart and chronic kidney disease with heart failure and stage 1 through stage 4 chronic kidney disease, or unspecified chronic kidney disease; N18.9 Chronic kidney disease, unspecified; R53.1 Weakness; Z87.440 Personal history of urinary (tract) infections; I48.2 Chronic atrial fibrillation; J44.9 Chronic obstructive pulmonary disease, unspecified; Z79.01 Long term (current) use of anticoagulants; Z86.711 Personal history of pulmonary embolism; Z99.81 Dependence on supplemental oxygen; K59.09 Other constipation; Z87.891 Personal history of nicotine dependence; Z66 Do not resuscitate; M10.9 Gout, unspecified; Z85.51 Personal history of malignant neoplasm of bladder; Z79.2 Long term (current) use of antibiotics
CPT/HCPCS: 36415; 80048; 83880; 85025; 85610; 86140; 94760; A9270-GY; J0692; J1940; J7050

== ENCOUNTER 2017-04-26 19:56 | Emergency (ER) | payer MEDICARE, BC ==
[2017-04-26] MEDS ORDERED: Sodium Chloride 0.9% 10 ML Syringe FLUSH PRN (20:18)
--- NOTE | 2017-04-26 20:21 | EDM.PDOC ---
ED HPI GENERAL MEDICAL PROBLEM - General Chief Complaint: Fever Stated Complaint: fever Time Seen by Provider: 04/26/17 20:02 Source of Information: Reports: Patient, Family, RN, RN Notes Reviewed History Limitations: Reports: No Limitations - History of Present Illness INITIAL COMMENTS - FREE TEXT/NARRATIVE: Brought to the emergency room at [facility] with complaints of fever and increasing weakness. The patient states he feels slightly short of breath. The patient states he has a dry nonproductive cough. Patient states that he is trying to stay well-hydrated with good by mouth fluid intake. The patient states that he feels more fatigued than usual. The patient states that his symptoms started last evening. The patient denies any nausea vomiting or diarrhea. No chest pain. Onset Date: 04/25/17 - Related Data Allergies Allergy/AdvReac Type Severity Reaction Status Date / Time No Known Allergies Allergy Verified 04/26/17 20:06 Home Meds: Home Meds Albuterol [Proair HFA] 1 - 2 puff INH Q4H PRN 09/10/14 [History] Allopurinol [Zyloprim] 300 mg PO DAILY 09/10/14 [History] Tiotropium [Spiriva HandiHaler] 1 puff PO DAILY 12/24/14 [History] Metoprolol Succinate [Toprol XL] 25 mg PO DAILY #30 tab.er 07/20/15 [Rx] Magnesium Oxide [Magnesium] 500 mg PO DAILY 01/26/16 [History] Diltiazem HCl [Cartia Xt] 180 mg PO DAILY 07/04/16 [History] Bisacodyl [Dulcolax] 5 mg PO DAILY PRN 07/07/16 [History] Docusate Sodium/Sennosides [Senna Plus] 1 tab PO BID 07/07/16 [History] Albuterol [Proventil Neb Soln] 2.5 mg NEB QID PRN 09/09/16 [History] Budesonide/Formoterol [Symbicort 160-4.5 MCG] 2 puff INH BID 09/09/16 [History] Cranberry Extract [Cranberry] 500 mg PO DAILY 09/09/16 [History] Lactobacillus Combination No.4 [Probiotic] 1 each PO DAILY 09/09/16 [History] Lactulose [Generlac] 30 ml PO TID PRN 09/09/16 [History] Multivitamin [Multi-Vitamin Daily] 1 each PO DAILY 09/09/16 [History] Wheat Dextrin/L.acid/Aspartame [Fiber with Probiotic Powder] 1 dose PO DAILY [History] Acetaminophen 1,000 mg PO TID PRN #0 09/11/16 [Rx] Furosemide [Lasix] 40 mg PO BIDDIURETIC tablet 09/11/16 [Rx] Warfarin [Coumadin] 7.5 mg PO ONETIME #0 09/11/16 [Rx] Amoxicillin 250 mg PO DAILY 04/26/17 [History] Ciprofloxacin HCl [Cipro] 1 tab PO BID 4 Days #8 tablet 04/26/17 [Rx] D-Mannose 1 tab PO BID 04/26/17 [History] Nystatin 1 applic TP ASDIRECTED 04/26/17 [History] Past Medical History HEENT History: Reports: Impaired Vision Cardiovascular History: Reports: Afib, Aneurysm, Heart Failure, High Cholesterol , Hypertension, Pulmonary Hypertension, Other (See Below) Other Cardiovascular History: AAA Respiratory History: Reports: COPD, PE, SOB Other Respiratory History: hypoxia, oxygen dependent Gastrointestinal History: Reports: Chronic Constipation Genitourinary History: Reports: Hydronephrosis, Renal Calculus, UTI, Recurrent Other Genitourinary History: kidney stones Musculoskeletal History: Reports: Gout, Other (See Below) Other Musculoskeletal History: collapsed vertebra, compression fracture of spine Neurological History: Reports: Other (See Below) Other Neuro History: mild cognitive impairment Psychiatric History: Reports: Other (See Below) Other Psychiatric History: adjustment disorder Endocrine/Metabolic History: Reports: None Hematologic History: Reports: Other (See Below) Other Hematologic History: coumadin therapy Immunologic History: Reports: None Oncologic (Cancer) History: Reports: Bladder Dermatologic History: Reports: Other (See Below) Other Dermatologic History: lymphadenopathy - Infectious Disease History Infectious Disease History: Reports: None - Past Surgical History Cardiovascular Surgical History: Reports: AAA Repair Social & Family History - Family History Family Medical History: Noncontributory Cardiac: Reports: CAD Respiratory: Reports: None GI: Reports: None : Reports: None OBGYN: Reports: None Musculoskeletal: Reports: Arthritis Neurological: Reports: None Psychiatric: Reports: None Endocrine/Metabolic: Reports: Diabetes, type II Hematologic: Reports: None Immunologic: Reports: None Oncologic: Reports: Bladder, Breast, Colon, Skin - Tobacco Use Smoking Status *Q: Unknown Ever Smoked Years of Tobacco use: 5 Packs/Tins Daily: 0.5 Used Tobacco, but Quit: No Month Tobacco Last Used: unknown Second Hand Smoke Exposure: No - Caffeine Use Caffeine Use: Reports: None - Alcohol Use Days Per Week of Alcohol Use: 0 - Recreational Drug Use Recreational Drug Use: No - Living Situation & Occupation Living situation: Reports: , Alone Occupation: Retired ED ROS GENERAL - Review of Systems Review Of Systems: See Below Constitutional: Reports: Fever, Chills, Weakness. Denies: Decreased Appetite HEENT: Reports: No Symptoms Respiratory: Reports: Shortness of Breath, Cough. Denies: Sputum Cardiovascular: Denies: Chest Pain, Palpitations GI/Abdominal: Denies: Abdominal Pain, Nausea, Vomiting Skin: Reports: No Symptoms Neurological: Reports: No Symptoms ED EXAM, GENERAL - Physical Exam Exam: See Below Exam Limited By: No Limitations General Appearance: Alert, No Apparent Distress Eye Exam: Bilateral Eye: Normal Inspection, PERRL Ears: Normal External Exam, Normal Canal, Normal TMs Ear Exam: Bilateral Ear: TM normal Nose: Normal Inspection Throat/Mouth: Other (mucous membranes dry) Respiratory/Chest: No Respiratory Distress, Lungs Clear, Decreased Breath Sounds Cardiovascular: Normal Peripheral Pulses, Regular Rate, Rhythm Peripheral Pulses: 2+: Radial (L), Radial (R) GI/Abdominal: Normal Bowel Sounds, Soft, Non-Tender Neurological: Alert, Oriented Skin Exam: Warm, Dry, Intact, Normal Color, No Rash Course - Vital Signs Last Recorded V/S: Last Vital Signs Temp 38.2 C H 04/26/17 20:02 Pulse 70 04/26/17 22:04 Resp 20 04/26/17 22:04 BP 100/53 L 04/26/17 22:04 Pulse Ox 93 L 04/26/17 22:04 - Orders/Labs/Meds Orders: Active Orders 24 hr Category Date Time Status Chest 1V Frontal [CR] Routine Exams 04/26/17 21:38 Taken CULTURE BLOOD [BC] Stat Lab 04/26/17 20:33 Received CULTURE BLOOD [BC] Stat Lab 04/26/17 20:38 Received CULTURE URINE [RM] Stat Lab 04/26/17 22:17 Ordered Sodium Chloride 0.9% [Saline Flush] Med 04/26/17 20:18 Active 10 ml FLUSH ASDIRECTED PRN Blood Culture x2 Reflex Set [OM.PC] Stat Oth 04/26/17 20:18 Ordered Peripheral IV Insertion Adult [OM.PC] Routine Oth 04/26/17 20:18 Ordered Medication Orders Sodium Chloride (Saline Flush) 10 ml FLUSH ASDIRECTED PRN PRN Reason: Keep Vein Open Labs: Laboratory Tests 04/26/17 04/26/17 04/26/17 Range/Units 20:33 20:33 20:33 WBC 14.1 H (4.0-10.0) x10^3/uL RBC 4.07 L (4.5-6.0) x10^6/uL Hgb 14.0 (14.0-18.0) g/dL Hct 42.1 (40.0-52.0) % MCV 103.4 H (78.0-93.0) fL MCH 34.4 H (26.0-32.0) pg MCHC 33.3 (32.0-36.0) g/dL RDW Coeff of Lety 13.8 (10.0-15.0) % Plt Count 150 (130-400) x10^3/uL Add Manual Diff Yes Neutrophils % (Manual) 66 (50-80) % Lymphocytes % (Manual) 16 L (25-50) % Atypical Lymphs % 2 H (0) % Monocytes % (Manual) 15 H (2-11) % Eosinophils % (Manual) 1 (0-4) % Platelet Estimate Adequate Sodium 140 (136-145) mmol/L Potassium 3.5 (3.5-5.1) mmol/L Chloride 104 (98-107) mmol/L Carbon Dioxide 27 (21-32) mmol/L BUN 33 H (7-18) mg/dL Creatinine 1.7 H (0.70-1.30) mg/dL Est Cr Clr Drug Dosing 36.14 mL/min Estimated GFR (MDRD) 39 Glucose 177 H (74-106) mg/dL Lactic Acid 1.8 (0.4-2.0) mmol/L Calcium 8.5 (8.5-10.1) mg/dL Magnesium 1.7 L (1.8-2.4) mg/dL C-Reactive Protein 12.0 H (<=0.9) mg/dL Urine Color (YELLOW) Urine Appearance (CLEAR) Urine pH (5.0-8.0) Ur Specific [place] Urine Protein (NEGATIVE) mg/dL Urine Glucose (UA) (NEGATIVE) mg/dL Urine Ketones (NEGATIVE) mg/dL Urine Occult Blood (NEGATIVE) Urine Nitrite (NEGATIVE) Urine Bilirubin (NEGATIVE) Urine Urobilinogen (0.2) EU/dL Ur Leukocyte Esterase (NEGATIVE) Urine RBC (NOT SEEN) /HPF Urine WBC (NOT SEEN) /HPF Ur Renal Epithelial Cell (NEGATIVE) /HPF Amorphous Sediment Urine Bacteria (NEGATIVE) /HPF Urine Mucus (NEGATIVE) /LPF Ur Yeast w Hyphae 04/26/17 Range/Units 21:33 WBC (4.0-10.0) x10^3/uL RBC (4.5-6.0) x10^6/uL Hgb (14.0-18.0) g/dL Hct (40.0-52.0) % MCV (78.0-93.0) fL MCH (26.0-32.0) pg MCHC (32.0-36.0) g/dL RDW Coeff of Lety (10.0-15.0) % Plt Count (130-400) x10^3/uL Add Manual Diff Neutrophils % (Manual) (50-80) % Lymphocytes % (Manual) (25-50) % Atypical Lymphs % (0) % Monocytes % (Manual) (2-11) % Eosinophils % (Manual) (0-4) % Platelet Estimate Sodium (136-145) mmol/L Potassium (3.5-5.1) mmol/L Chloride (98-107) mmol/L Carbon Dioxide (21-32) mmol/L BUN (7-18) mg/dL Creatinine (0.70-1.30) mg/dL Est Cr Clr Drug Dosing mL/min Estimated GFR (MDRD) Glucose (74-106) mg/dL Lactic Acid (0.4-2.0) mmol/L Calcium (8.5-10.1) mg/dL Magnesium (1.8-2.4) mg/dL C-Reactive Protein (<=0.9) mg/dL Urine Color Dark yellow H (YELLOW) Urine Appearance Turbid H (CLEAR) Urine pH 6.0 (5.0-8.0) Ur Specific [place] 1.010 Urine Protein 30 H (NEGATIVE) mg/dL Urine Glucose (UA) Negative (NEGATIVE) mg/dL Urine Ketones Negative (NEGATIVE) mg/dL Urine Occult Blood Moderate H (NEGATIVE) Urine Nitrite Negative (NEGATIVE) Urine Bilirubin Negative (NEGATIVE) Urine Urobilinogen 0.2 (0.2) EU/dL Ur Leukocyte Esterase Moderate H (NEGATIVE) Urine RBC 50-75 H (NOT SEEN) /HPF Urine WBC 20-30 H (NOT SEEN) /HPF Ur Renal Epithelial Cell Few H (NEGATIVE) /HPF Amorphous Sediment Rare Urine Bacteria Moderate H (NEGATIVE) /HPF Urine Mucus Rare H (NEGATIVE) /LPF Ur Yeast w Hyphae Few Meds: Medications Generic Name Dose Route Start Last Admin Trade Name Freq PRN Reason Stop Dose Admin Sodium Chloride 10 ml 04/26/17 20:18 Saline Flush FLUSH ASDIRECTED PRN Keep Vein Open Discontinued Medications Generic Name Dose Route Start Last Admin Trade Name Freq PRN Reason Stop Dose Admin Sodium Chloride 1,000 mls @ 999 mls/hr 04/26/17 20:19 04/26/17 20:37 Normal Saline IV 04/26/17 21:19 999 mls/hr ONETIME ONE Administration - Radiology Interpretation Free Text/Narrative:: CXR: Retrocardiac consolidation or atelectasis; Cardiomegaly with mild vascular congestion See scanned report in EMR Departure - Departure Time of Disposition: 22:19 Disposition: Home, Self-Care 01 Condition: Good Clinical Impression: Urinary tract infection Qualifiers: Urinary tract infection type: acute cystitis Hematuria presence: with hematuria Qualified Code(s): N30.01 - Acute cystitis with hematuria - Discharge Information Prescriptions: Ciprofloxacin HCl [Cipro] 1 tab PO BID 4 Days #8 tablet Instructions: Urinary Tract Infection, Adult Referrals: Larisa Ellsworth MD [Primary Care Provider] - Forms: ED Department Discharge Additional Instructions: 1. Stay well hydrated and rest 2. Take antibiotics for the full coarse, even if you are feeling better 3. Stop Amoxicillin for now until seen by your PCP 4. Continue all other medications the same without changes 5. Make an appointment to see Dr. Ellsworth this week for a recheck 6. Call with any questions/concerns - Problem List Review Problem List Initiated/Reviewed/Updated: Yes - My Orders Last 24 Hours: My Active Orders 04/26/17 20:18 Sodium Chloride 0.9% [Saline Flush] 10 ml FLUSH ASDIRECTED PRN Blood Culture x2 Reflex Set [OM.PC] Stat Peripheral IV Insertion Adult [OM.PC] Routine 04/26/17 20:33 CULTURE BLOOD [BC] Stat 04/26/17 20:38 CULTURE BLOOD [BC] Stat 04/26/17 21:38 Chest 1V Frontal [CR] Routine 04/26/17 22:17 CULTURE URINE [RM] Stat - Assessment/Plan Last 24 Hours: My Active Orders 04/26/17 20:18 Sodium Chloride 0.9% [Saline Flush] 10 ml FLUSH ASDIRECTED PRN Blood Culture x2 Reflex Set [OM.PC] Stat Peripheral IV Insertion Adult [OM.PC] Routine 04/26/17 20:33 CULTURE BLOOD [BC] Stat 04/26/17 20:38 CULTURE BLOOD [BC] Stat 04/26/17 21:38 Chest 1V Frontal [CR] Routine 04/26/17 22:17 CULTURE URINE [RM] Stat Plan: Case discussed with Dr. Marlin Monique. Discussed labs and xray results with patient. I did offer patient observation admission for IVF hydration and to watch for any worsening fevers. Patient declined admission. Will start Cipro 500mg BID for 5 days. Recommend follow up in clinic with PCP this week for a recheck.
[2017-04-26] MEDS: Sodium Chloride 0.9% 1,000 ML IV ONE (20:37)
[2017-04-26] MEDS: Take Home: Ciprofloxacin 500 MG Tab, 2 Tab Pack PO ONE (23:12)
[2017-04-26 23:36] VITALS: BP 106/45
== END 2017-04-26 23:20 | disposition home or self-care (01) ==
LOC: VM.ED 19:56
DX: N30.01 Acute cystitis with hematuria (principal); E78.00 Pure hypercholesterolemia, unspecified; I10 Essential (primary) hypertension; Z79.899 Other long term (current) drug therapy; Z79.01 Long term (current) use of anticoagulants
CPT/HCPCS: 36415; 71045; 80048; 81001; 83605; 83735; 85025; 86140; 87040; 87077; 87086; 87088; 87186; 87804; 96360; 96361; 99284; A9270; J7030; 96365; 96366

== ENCOUNTER 2017-04-27 12:35 | Inpatient (IN) | payer MEDICARE, BC ==
[2017-04-27] MEDS ORDERED: Cefepime 1 GM Vial IV ONE (14:09)
[2017-04-27] MEDS: Sodium Chloride 0.9% 10 ML Syringe FLUSH PRN (14:51)
[2017-04-27] MEDS ORDERED: Bisacodyl 5 MG Tab PO PRN (15:34)
[2017-04-27] MEDS ORDERED: Albuterol 0.083% 2.5 MG/3 ML Neb Soln NEB PRN (15:34)
[2017-04-27] MEDS ORDERED: Take Home: Albuterol 6.7 GM Inhaler, 1 Inhaler Pack INH PRN (15:34)
[2017-04-27] MEDS ORDERED: Lactulose Soln 10 GM/15 ML 30 ML UD Cup PO PRN (16:00)
[2017-04-27] MEDS: Omeprazole 20 MG Cap.CR PO SCH (16:57)
[2017-04-27] MEDS: Warfarin 5 MG Tab PO SCH (16:57)
[2017-04-27] MEDS ORDERED: D MANNOSE PO SCH (17:00)
[2017-04-27] MEDS: Potassium Chloride 10 MEQ Tab.ER PO SCH (17:46)
[2017-04-27] MEDS: Ciprofloxacin 500 MG Tab PO SCH (17:46)
[2017-04-27] MEDS: Formoterol/Mometasone 200-5 MCG 8.8 GM Inhaler IH SCH (18:37)
[2017-04-27] MEDS ORDERED: Furosemide 40 MG Tab PO SCH (20:00)
[2017-04-27] MEDS: Metoprolol Succinate 25 MG Tab.ER PO SCH (20:33)
--- NOTE | 2017-04-27 23:47 | HP ---
CHIEF COMPLAINT: Weakness and fevers. HISTORY OF PRESENT ILLNESS: This is an 81-year-old male who was in the ER last evening. He had about 100.1 temp. He had a positive UTI. He received 1 L of fluid over 3 hours and was sent home on oral Cipro. He did not get any IV antibiotics. His creatinine was 1.7. Previous creatinine in the clinic was 1.3. His white count was 14,000. Otherwise, he had not been having any change in his chronic cough, which he has from COPD. He had not had any worsening shortness of breath, but is now using 3 L of oxygen. He has not had any leg swelling. He does still live independently. Otherwise, his son states he really was feeling unwell since Thursday, but just did not really want to come into the clinic; so, he knew he was quite sick when he was agreeable to come in on Thursday. PAST MEDICAL HISTORY: Quite complicated for urinary tract infections with the fact that he had bladder cancer and has had a radical cystectomy and ileal conduit since 2004. He has had stones. He has had chronic Pseudomonas UTIs. He has been now on amoxicillin for prevention of bladder infections. His last infection was an infected stone for Pseudomonas in 03/2016 and then he had a culture back in 11/2016, which was positive for Pseudomonas 70,000. He also has a history of an abdominal aortic aneurysm repaired endovascularly in 2014, kidney stones, adjustment disorder after the loss of his , hyperlipidemia, hypertriglyceridemia, chronic lymphadenopathy going back to 2012, history of gout, chronic hypoxic respiratory failure, secondary to COPD and CHF, chronic diastolic heart failure, EF in 2016 was 55%, he also has known moderate mitral regurgitation, he has no reported pulmonary hypertension at that time, he has a history of pulmonary embolus, he is on Coumadin, he had atrial fibrillation, COPD, severe back in 2012, mild cognitive impairment. Mental status was 23/30 in 03/2016, previous compression fracture, status post vertebroplasty in 04/2016 at T10. PAST SURGICAL HISTORY: Surgically as listed above and also the patient has had prostate surgery, left inguinal hernia surgery, and bilateral eye surgery. FAMILY HISTORY: Both parents are . Father did have a heart attack. SOCIAL HISTORY: He is . 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 He had 5 children. He lives independently. He does have Home Health. He does not smoke currently. ALLERGIES: No known allergies. MEDICATIONS: Medication list does include Symbicort 160/4.5 twice daily, Toprol 25 mg daily, amoxicillin 250 daily, Proventil nebulizers 4 times a day as needed for cough, D-mannose powder twice daily to prevent UTIs, Lasix 40 mg twice daily, cranberry tabs daily, probiotics, Cartia 180 daily, warfarin as directed, currently, he takes 5 mg everyday, allopurinol 300 mg daily, Proventil inhaler as needed, lactulose 3 times a day as needed for constipation, Dulcolax as needed, senna plus twice daily, nystatin powder, magnesium 500 mg daily, multivitamin daily, and Tylenol 1000 mg every 4 to 6 hours. REVIEW OF SYSTEMS: General: No reported weight loss or weight gain. HEENT: No sore throat. Cardiac: No chest pain. No racing heart rates. Respiratory: He has had a cough. He feels it is similar to his chronic cough. No increased shortness of breath. Abdomen: He has had a little bit of midepigastric discomfort, but no changes in bowel habits. No diarrhea. No constipation. Musculoskeletal: No new back pain or leg aches. Neurologic: No new memory changes. Psychologic: He denies that he has been depressed or anxious. Otherwise, all systems reviewed and found to be negative unless otherwise stated. PHYSICAL EXAMINATION: Vital Signs: His weight currently is 103.1 kg, temp is 99.2, pulse 92, blood pressure 123/69, respiratory rate 22, and O2 91% on 4 L. General: He is in no acute distress. Heart: Irregularly irregular with murmur. Lungs: Sounds were slightly decreased with some faint crackles over the left base. Abdomen: Positive bowel sounds. It is soft. It is nontender. Extremities: Warm and dry. Support stockings in place without edema. Mental Status: He is alert. He is orientated x3. His short-term memory appears to be intact. LABORATORY DATA: Lab work reviewed and shows him to have a white count down to 11.9, it was 14, last night, hemoglobin 13.7, platelets 137. INR 2. Sodium 138, potassium 3.4, chloride 101, bicarb 26, BUN 29, creatinine 1.6, glucose 143, and calcium 8.6. Chest x-ray from yesterday did show mild left basilar infiltrate or atelectasis. Consider follow up with PA and lateral. Blood cultures maximino last night are growing 1/2 bottles of gram-negative bacilli and his urine is already growing 50 to 100,000 of gram-negative rods. ASSESSMENT AND PLAN: 1. Gram-negative bacteremia with likely urinary source. Given the patient's history, he has had Pseudomonas. I discussed this with Infectious Disease. I did give him a 2 g dose of cefepime today and we will await further cultures tomorrow. I will also keep him on the Cipro 500 twice daily. He does have a supply at home. 2. Complicated urinary tract infection. I am going to hold his oral amoxicillin as he is on treatments with Cipro. 3. Weakness, likely related to current infection with gram-negative bacteremia. 4. Renal insufficiency, probably related to his acute illness. He did get 1 L of fluids last evening with his known heart failure. I am going to continue to monitor, encourage p.o. intake, and repeat lab work tomorrow. Instead of giving him IV fluids, I will hold his Lasix, and watch closely for heart failure. 5. Chronic diastolic heart failure, stable without exacerbation. 6. Chronic COPD. He will continue his home treatments. 7. Chronic hypoxic respiratory failure. We will see how the patient does. If he continues to require more oxygen, we will repeat a chest x-ray tomorrow with PA and lateral. When he is hopefully feeling a little better with more strength, we will also get him up and working with therapies. 8. Atrial fibrillation. INR is therapeutic. We will continue to monitor closely while on Coumadin. We will continue his home dose of 5 mg daily. 9. History of gout. We will continue allopurinol. 10.Mild hypokalemia. We will do a 10 mEq daily of potassium. I will check a potassium and magnesium again tomorrow. 11.DVT prophylaxis. The patient is therapeutic on his Coumadin. He is a code level 3. No CPR. We will get him on incentive spirometry for his breathing. We will hold off on IV fluids. We will hold Lasix. We are doing IV cefepime and oral Cipro. Repeat lab work in the morning. Repeat chest x-ray if needed. Discussed his clinical situation with his son how we normally treat gram-negative bacteremia. MKA: 04/27/2017 17:07:42 MODL: 04/27/2017 23:39:57 /[id number]
[2017-04-28] MEDS: Multivitamin, Stress Formula with Zinc Tab PO SCH (06:33)
[2017-04-28] MEDS: Cranberry 500 MG Cap PO SCH (06:33)
[2017-04-28] MEDS: Allopurinol 300 MG Tab PO SCH (06:33)
[2017-04-28] MEDS: Diltiazem 180 MG Cap.CD PO SCH (06:34)
[2017-04-28] MEDS ORDERED: Non-Formulary Medication 1 Each (Magnesium Oxide [Magnesium] 500 MG) PO SCH (07:00)
[2017-04-28] MEDS: Formoterol/Mometasone 200-5 MCG 8.8 GM Inhaler IH SCH ×2 (07:23→18:35)
[2017-04-28] MEDS: Tiotropium Inhaler 18 MCG Inhalation Powder Cap Kit of 5 INH SCH (07:23)
[2017-04-28] MEDS: Magnesium Oxide 400 MG Tab PO SCH (07:48)
[2017-04-28] MEDS: Ciprofloxacin 500 MG Tab PO SCH ×2 (07:48→20:55)
[2017-04-28] MEDS: Potassium Chloride 10 MEQ Tab.ER PO SCH (07:48)
[2017-04-28] MEDS: Sodium Chloride 0.9% 10 ML Syringe FLUSH PRN (07:49)
[2017-04-28] MEDS: Lactobacillus Rhamnosus GG (Probiotic) Cap PO SCH (07:49)
[2017-04-28] MEDS: Omeprazole 20 MG Cap.CR PO SCH (07:49)
[2017-04-28] MEDS ORDERED: Cefepime 1 GM Vial IV SCH (09:00)
--- NOTE | 2017-04-28 10:40 | PN ---
Progress Note for TOMAS GRIFFIN Date: 04/28/2017 Room #: VM.219 SUBJECTIVE: Hospital day #2 on an 81-year-old admitted with gram-negative bacteremia after being in the ER the previous evening and being diagnosed with UTI. His urine and blood are growing Klebsiella, which is sensitive to Cipro. He did receive some cefepime yesterday for additional coverage. He has been afebrile since admission, but he is quite weak. He is needing assistance. He has really only just sat on the edge of the bed with PT. He is not having any worsening cough. No increased shortness of breath. He is back on his home oxygen 3 L. He states he just has pain all over, which he did not have yesterday, but he attributes that more to sleeping in the bed. Cipro Day # 3 Cefepime Day #2 OBJECTIVE: Vital Signs: Temperature is 98, pulse 72, blood pressure 104/60, respiratory rate 19, and O2 of 97% on 4 L. He was turned down to 3 L this morning. General: He is in no acute distress. Heart: Irregularly irregular with murmur. Respiratory: Lungs sounds are clear to auscultation bilaterally with just slight decrease in the bases. No crackles and no wheezes appreciated. Abdomen: Nondistended and nontender. He has a urostomy in place. Extremities: Warm and dry. Support stockings in place. Mental Status: He is alert and orientated x3. LABORATORY DATA: Lab work does show white count down to 10.6, hemoglobin 13.5, and platelets 138. INR dropped to 1.7. Sodium 138, potassium 3.7, chloride 103, bicarb 27, BUN 29, creatinine 1.5, glucose 97, and calcium 8.4. ASSESSMENT: 1. Gram-negative bacteremia with Klebsiella secondary to urinary tract infection. 2. Complicated urinary tract infection with Klebsiella with urostomy in place and history of bladder stones. 3. Weakness and deconditioning secondary to Klebsiella bacteremia. 4. Mild renal insufficiency. He got 1 L of fluids prior to admission. His Lasix has been on hold. His creatinine has improved further to 1.5. Baseline is about 1.3 or better. We will continue to hold Lasix. 5. Chronic obstructive pulmonary disease, stable without exacerbation. 6. Chronic diastolic heart failure, stable without exacerbation. 7. Chronic hypoxic respiratory failure, on 3 L of oxygen at home. 8. Atrial fibrillation. Permanent rate controlled on Coumadin. INR is slightly subtherapeutic. Given antibiotics we will continue his same dose and repeat an INR tomorrow. 9. History of gout. He is on allopurinol. 10.Deep venous thrombosis prophylaxis. He is on Coumadin. He was therapeutic yesterday. PLAN: At this point, the patient will continue with acute cares. We were going to schedule some IV cefepime twice daily today, but now that his culture has returned, I stopped it after he got 1 more dose we will continue the oral Cipro 500 twice daily for bacteremia. We plan to treat for at least a 7-day course, I have sent a note to his ID doctor. He does have some Cipro at home. We will keep him working with therapies. He is currently not having any diarrhea. We will continue to hold Lasix. We will repeat renal function tomorrow as well. Hold off on any further IV fluids. We will repeat his chest x-ray if any worsening of his respiratory status. DANNA: 04/28/2017 10:02:59 MODL: 04/28/2017 10:31:58 /[id number] LISE
[2017-04-28] MEDS: Warfarin 5 MG Tab PO SCH (16:11)
[2017-04-28] MEDS: Metoprolol Succinate 25 MG Tab.ER PO SCH (20:55)
[2017-04-29] MEDS: Cranberry 500 MG Cap PO SCH (06:25)
[2017-04-29] MEDS: Tiotropium Inhaler 18 MCG Inhalation Powder Cap Kit of 5 INH SCH (06:25)
[2017-04-29] MEDS: Formoterol/Mometasone 200-5 MCG 8.8 GM Inhaler IH SCH ×3 (06:25→18:02)
[2017-04-29] MEDS: Allopurinol 300 MG Tab PO SCH (06:25)
[2017-04-29] MEDS: Multivitamin, Stress Formula with Zinc Tab PO SCH (06:25)
[2017-04-29] MEDS: Diltiazem 180 MG Cap.CD PO SCH (06:25)
[2017-04-29] MEDS: Ciprofloxacin 500 MG Tab PO SCH ×2 (07:53→20:18)
[2017-04-29] MEDS: Magnesium Oxide 400 MG Tab PO SCH (07:53)
[2017-04-29] MEDS: Potassium Chloride 10 MEQ Tab.ER PO SCH (07:53)
[2017-04-29] MEDS: Omeprazole 20 MG Cap.CR PO SCH (07:53)
[2017-04-29] MEDS: Lactobacillus Rhamnosus GG (Probiotic) Cap PO SCH (07:53)
--- NOTE | 2017-04-29 10:22 | PCM.PN ---
- General Info Date of Service: 04/29/17 Subjective Update: Patient is feeling better this morning. He is frustrated about his slow progress this time as he notes he tends to turn around more quickly than he is this time. Mainly, he just feels weak. His breathing and chronic cough are at baseline. He has not had any fever or chills overnight. He denies any other concerns. - Review of Systems General: Reports: No Symptoms HEENT: Reports: No Symptoms Pulmonary: Reports: No Symptoms Cardiovascular: Reports: No Symptoms Gastrointestinal: Reports: No Symptoms Musculoskeletal: Reports: No Symptoms Skin: Reports: No Symptoms - Patient Data Vitals - Most Recent: Last Vital Signs Temp 37.0 C 04/29/17 09:31 Pulse 78 04/29/17 09:31 Resp 20 04/29/17 09:31 BP 118/59 L 04/29/17 09:31 Pulse Ox 91 L 04/29/17 09:47 Weight - Most Recent: 102.172 kg I&O - Last 24 Hours: Intake & Output 04/28/17 04/29/17 04/29/17 22:59 06:59 14:59 Intake Total 460 560 300 Output Total 400 1400 Balance 60 -840 300 Lab Results Last 24 Hours: Laboratory Results - last 24 hr 04/29/17 04/29/17 Range/Units 06:52 06:52 PT 20.1 H (9.8-11.8) SEC INR 1.9 L (2.0-3.5) Sodium 139 (136-145) mmol/L Potassium 4.1 (3.5-5.1) mmol/L Chloride 103 (98-107) mmol/L Carbon Dioxide 26 (21-32) mmol/L BUN 28 H (7-18) mg/dL Creatinine 1.4 H (0.70-1.30) mg/dL Est Cr Clr Drug Dosing 43.88 mL/min Estimated GFR (MDRD) 48 Glucose 99 (74-106) mg/dL Calcium 8.7 (8.5-10.1) mg/dL Joce Results Last 24 Hours: Microbiology 04/27/17 13:30 MRSA Surveillance Culture - Final Nares, Left NO MRSA ISOLATED Med Orders - Current: Current Medications Acetaminophen (Tylenol Extra Strength) 1,000 mg PO Q4H PRN PRN Reason: Pain Albuterol (Proventil Neb Soln) 2.5 mg NEB QID PRN PRN Reason: Cough Allopurinol (Zyloprim) 300 mg PO DAILY@0700 [facility] Last Admin: 04/29/17 06:25 Dose: 300 mg Bisacodyl (Dulcolax) 5 mg PO DAILY PRN PRN Reason: Constipation Ciprofloxacin (Ciprofloxacin Hcl) 500 mg PO BID [facility] Last Admin: 04/29/17 07:53 Dose: 500 mg Cranberry (Cranberry) 500 mg PO DAILY@0700 [facility] Last Admin: 04/29/17 06:25 Dose: 500 mg Diltiazem HCl (Cardizem Cd) 180 mg PO DAILY@07 [facility] Last Admin: 04/29/17 06:25 Dose: 180 mg Lactobacillus Rhamnosus (Culturelle) 1 cap PO DAILY [facility] Last Admin: 04/29/17 07:53 Dose: 1 cap Lactulose (Cephulac) 20 gm PO TID PRN PRN Reason: CONSTIPATION Magnesium Oxide (Magnesium Oxide) 400 mg PO DAILY [facility] Last Admin: 04/29/17 07:53 Dose: 400 mg Metoprolol Succinate (Toprol Xl) 25 mg PO DAILY@1999 [facility] Last Admin: 04/28/17 20:55 Dose: 25 mg Mometasone Furoate/Formoterol Fumar (Dulera 200-5 Mcg) 2 puff IH BID@0700,1900 [facility] Last Admin: 04/29/17 06:25 Dose: 2 puff Non-Formulary Medication (D-Mannose [D-Mannose]) 1 tab PO BID@0700,1700 [facility] Omeprazole (Omeprazole) 20 mg PO DAILY [facility] Last Admin: 04/29/17 07:53 Dose: 20 mg Potassium Chloride (Klor-Con 10) 10 meq PO DAILY [facility] Last Admin: 04/29/17 07:53 Dose: 10 meq Senna/Docusate Sodium (Senna Plus) 1 tab PO BID@0700,1700 [facility] Last Admin: 04/29/17 06:25 Dose: 1 tab Sodium Chloride (Saline Flush) 10 ml FLUSH ASDIRECTED PRN PRN Reason: Keep Vein Open Last Admin: 04/28/17 07:49 Dose: 10 ml Tiotropium [place] (Spiriva Handihaler) 18 mcg INH DAILY@0700 [facility] Last Admin: 04/29/17 06:25 Dose: 1 inhalation Vitamin B Complex/Vit C/Vit E/Zinc (Stress Formula With Zinc) 1 tab PO DAILY@ 0700 [facility] Last Admin: 04/29/17 06:25 Dose: 1 tab Warfarin Sodium (Coumadin) 5 mg PO DAILY@1700 [facility] Last Admin: 04/28/17 16:11 Dose: 5 mg Discontinued Medications Cefepime HCl (Maxipime) 2 gm IV ONETIME ONE Stop: 04/27/17 14:10 Last Admin: 04/27/17 14:41 Dose: 2 gm Cefepime HCl (Maxipime) 2 gm IV Q12H [facility] Stop: 04/28/17 13:00 Last Admin: 04/28/17 09:46 Dose: 2 gm Furosemide (Lasix) 40 mg PO BID@0700,1999 [facility] Non-Formulary Medication (Magnesium Oxide [Magnesium]) 500 mg PO DAILY@0700 [facility] - Exam General: Alert, Oriented, Cooperative, No Acute Distress HEENT: Mucous Membr. Moist/[place] Neck: Supple, Trachea Midline, No Thyromegaly. No: Lymphadenopathy Lungs: Clear to Auscultation, Normal Respiratory Effort, Decreased Breath Sounds (throughout - baseline for him) Cardiovascular: Regular Rate, Irregular Rhythm, Murmurs GI/Abdominal Exam: Normal Bowel Sounds, Soft, Non-Tender, No Organomegaly, No Distention, No Mass Extremities: Normal Inspection, Non-Tender, No Pedal Edema, Normal Capillary Refill Peripheral Pulses: 2+: Radial (L), Radial (R), Posterior Tibial (L), Posterior Tibial (R) Skin: Warm, Dry, Intact - Problem List & Annotations (1) UTI, Urinary tract infectious disease SNOMED Code(s): 01004874 Code(s): N39.0 - URINARY TRACT INFECTION, SITE NOT SPECIFIED Status: Acute Priority: Low Current Visit: No Annotation/Comment:: - U/A abnormal. Urine and blood cultures both growing klebsiella and susceptibilities are available. - Never met sepsis criteria. WBC downtrending. - Has been reviewed with ID and they recommend a 2 week course of antibiotics. He has been transitioned to ciprofloxacin based on susceptibilities. - Recommendation is also to switch him to cephalexin for prophylaxis once he has completed his acute course of antibiotics. (2) Gram-negative bacteremia SNOMED Code(s): 971290435165 Code(s): R78.81 - BACTEREMIA Status: Acute Current Visit: Yes Annotation/Comment:: - Secondary to UTI. - As above, ID recommends 2 week course of antibiotics and patient is on ciprofloxacin based on susceptibilities. - Does not need follow-up blood cultures to ensure this clears. (3) Weakness SNOMED Code(s): 62294354 Code(s): R53.1 - WEAKNESS Status: Acute Current Visit: No Annotation/ Comment:: - Secondary to above. - Reviewed that it will take longer to recover in the setting of the bacteremia. - He may benefit from a swing bed stay. PT to evaluate the patient today. - He hesitates to agree to a swing bed stay but will consider this overnight and we will discuss further tomorrow. (4) COPD (chronic obstructive pulmonary disease) SNOMED Code(s): 70083789 Code(s): J44.9 - CHRONIC OBSTRUCTIVE PULMONARY DISEASE, UNSPECIFIED Status : Chronic Current Visit: No Qualifiers: COPD type: unspecified COPD Qualified Code(s): J44.9 - Chronic obstructive pulmonary disease, unspecified Annotation/Comment:: - Had initially had some shortness of breath but that resolved without any specific intervention. - No evidence of COPD exacerbation during this admission. - Home medications continued. (5) Chronic anticoagulation SNOMED Code(s): 555434630 Code(s): Z79.01 - SPECIAL DIET COOK (CURRENT) USE OF ANTICOAGULANTS Status: Chronic Current Visit: No Annotation/Comment:: - INR acceptable at 1.9 today. - Home warfarin dosing is continued. (6) Chronic atrial fibrillation SNOMED Code(s): 299817892 Code(s): I48.2 - CHRONIC ATRIAL FIBRILLATION Status: Chronic Current Visit: No Annotation/Comment:: - Rates appropriate. - Home medications continued. (7) Chronic kidney disease SNOMED Code(s): 302193257 Code(s): N18.9 - CHRONIC KIDNEY DISEASE, UNSPECIFIED Status: Chronic Current Visit: No Qualifiers: Chronic kidney disease stage: stage 3 (moderate) Qualified Code(s): N18.3 - Chronic kidney disease, stage 3 (moderate) Annotation/Comment:: - Creatinine peak during this admission was 1.6 so he never met criteria for acute kidney injury. - Down to 1.4 today, which is his baseline. (8) Chronic respiratory failure with hypoxia SNOMED Code(s): 206352931 Code(s): J96.11 - CHRONIC RESPIRATORY FAILURE WITH HYPOXIA Status: Chronic Current Visit: Yes Annotation/Comment:: - He is at his home oxygen requirements right now. (9) Diastolic heart failure SNOMED Code(s): 617691023 Code(s): I50.30 - UNSPECIFIED DIASTOLIC (CONGESTIVE) HEART FAILURE Status: Chronic Current Visit: Yes Qualifiers: Heart failure chronicity: chronic Qualified Code(s): I50.32 - Chronic diastolic (congestive) heart failure Annotation/Comment:: - No evidence of CHF exacerbation. - His lasix has been held due to elevated creatinine. - Will go ahead and restart this tomorrow as he tends to have a tenuous fluid balance. - Otherwise, continue home medications. - Problem List Review Problem List Initiated/Reviewed/Updated: Yes - Assessment Assessment:: 81 yo male admitted with a complicated UTI and associated klebsiella bacteremia and generalized weakness. Is improving but slowly. - Plan Plan:: See details under problems above. Continue ciprofloxacin. PT evaluation today to determine if patient would qualify for swing bed services. He will remain on acute today - anticipate he will be medically prepared for transition tomorrow either to home or to swing bed depending on what he is agreeable to. He does not require VTE prophylaxis as he is therapeutic on his warfarin. Code status is DNR/DNI.
[2017-04-29] MEDS: Acetaminophen 500 MG Tab PO PRN (14:12)
[2017-04-29] MEDS: Warfarin 5 MG Tab PO SCH (17:46)
[2017-04-29] MEDS: Metoprolol Succinate 25 MG Tab.ER PO SCH (20:19)
[2017-04-30] MEDS: Diltiazem 180 MG Cap.CD PO SCH (06:26)
[2017-04-30] MEDS: Multivitamin, Stress Formula with Zinc Tab PO SCH (06:26)
[2017-04-30] MEDS: Formoterol/Mometasone 200-5 MCG 8.8 GM Inhaler IH SCH (06:26)
[2017-04-30] MEDS: Allopurinol 300 MG Tab PO SCH (06:26)
[2017-04-30] MEDS: Cranberry 500 MG Cap PO SCH (06:26)
[2017-04-30] MEDS: Tiotropium Inhaler 18 MCG Inhalation Powder Cap Kit of 5 INH SCH (06:27)
[2017-04-30] MEDS: Ciprofloxacin 500 MG Tab PO SCH (07:56)
[2017-04-30] MEDS: Magnesium Oxide 400 MG Tab PO SCH (07:56)
[2017-04-30] MEDS: Lactobacillus Rhamnosus GG (Probiotic) Cap PO SCH (07:56)
[2017-04-30] MEDS: Omeprazole 20 MG Cap.CR PO SCH (07:56)
[2017-04-30] MEDS: Potassium Chloride 10 MEQ Tab.ER PO SCH (07:56)
[2017-04-30] MEDS: Acetaminophen 500 MG Tab PO PRN (07:58)
[2017-04-30] MEDS ORDERED: Furosemide 40 MG Tab PO SCH (08:00)
--- NOTE | 2017-04-30 08:34 | PCM.DCSUM1 ---
Discharge Summary - Hospital Course Brief History: Mr. Aragon is an 81 yo male admitted with klebsiella bacteremia secondary to complicated UTI after presenting with generalized weakness. - Discharge Data Discharge Date: 04/30/17 Discharge Disposition: DC/Tfer W/I Hosp To Swing 61 Condition: Good - Discharge Diagnosis/Problem(s) (1) UTI, Urinary tract infectious disease SNOMED Code(s): 39693371 ICD Code: N39.0 - URINARY TRACT INFECTION, SITE NOT SPECIFIED Status: Acute Priority: Low Current Visit: No Problem Details: Patient presented with generalized weakness as is typical for his UTI presentations. He had initially presented to the ER the day before and admission was recommended but the patient declined. When his blood cultures returned positive the following day, he was then agreeable to be admitted. He never met sepsis criteria and vitals have been stable. He was started on cefepime initially and then transitioned to ciprofloxacin once susceptibilities were available. Both his urine and his blood grew klebsiella. Infectious disease was contacted and helped to guide antibiotic therapy. They recommend a 2 week course of antibiotics and then transition to cephalexin for prophylaxis instead of amoxicillin. (2) Gram-negative bacteremia SNOMED Code(s): 318716878239 ICD Code: R78.81 - BACTEREMIA Status: Acute Current Visit: Yes Problem Details: Secondary to UTI. As above, ID recommends 2 week course of antibiotics and patient is on ciprofloxacin based on susceptibilities. Does not need follow- up blood cultures to ensure this clears. (3) Weakness SNOMED Code(s): 70019671 ICD Code: R53.1 - WEAKNESS Status: Acute Current Visit: No Problem Details: Secondary to above. Patient is frustrated that he is not recovering more quickly but we have reviewed that it will take longer to recover in the setting of the bacteremia. Physical therapy has assessed the patient and do recommend swing bed. The patient was actually agreeable to that this morning and will transition to swing bed today. (4) COPD (chronic obstructive pulmonary disease) SNOMED Code(s): 77917302 ICD Code: J44.9 - CHRONIC OBSTRUCTIVE PULMONARY DISEASE, UNSPECIFIED Status : Chronic Current Visit: No Problem Details: He apparently initially had some shortness of breath but that resolved without any specific intervention. No evidence of COPD exacerbation during this admission. Home medications were continued. Qualifiers: COPD type: unspecified COPD Qualified Code(s): J44.9 - Chronic obstructive pulmonary disease, unspecified (5) Chronic anticoagulation SNOMED Code(s): 312869018 ICD Code: Z79.01 - [facility] (CURRENT) USE OF ANTICOAGULANTS Status: Chronic Current Visit: No Problem Details: INR was mildly subtherapeutic a couple of days ago but is good at 2.0 today. Home warfarin dosing is continued. Will plan to recheck again tomorrow. If stable, will recheck next on Thursday. (6) Chronic atrial fibrillation SNOMED Code(s): 191069936 ICD Code: I48.2 - CHRONIC ATRIAL FIBRILLATION Status: Chronic Current Visit: No Problem Details: Rates appropriate. Home medications continued. (7) Chronic kidney disease SNOMED Code(s): 479514712 ICD Code: N18.9 - CHRONIC KIDNEY DISEASE, UNSPECIFIED Status: Chronic Current Visit: No Problem Details: Creatinine peak during this admission was 1.6 so he never met criteria for acute kidney injury. No intervention was done except holding his lasix. He is back down to 1.3 today which is his baseline. Qualifiers: Chronic kidney disease stage: stage 3 (moderate) Qualified Code(s): N18.3 - Chronic kidney disease, stage 3 (moderate) (8) Chronic respiratory failure with hypoxia SNOMED Code(s): 695295606 ICD Code: J96.11 - CHRONIC RESPIRATORY FAILURE WITH HYPOXIA Status: Chronic Current Visit: Yes Problem Details: He is at his home oxygen requirements right now. (9) Diastolic heart failure SNOMED Code(s): 863378066 ICD Code: I50.30 - UNSPECIFIED DIASTOLIC (CONGESTIVE) HEART FAILURE Status : Chronic Current Visit: Yes Problem Details: No evidence of CHF exacerbation. His lasix was held due to his elevated creatinine. However, this has now improved. Given previous issues with CHF exacerbations with little change in his diuretic regimen, his lasix is to be restarted today. Will recheck BMP on Thursday. Qualifiers: Heart failure chronicity: chronic Qualified Code(s): I50.32 - Chronic diastolic (congestive) heart failure - Patient Summary/Data Operative Procedure(s) Performed: none Complications: none Consults: Consultations 04/28/17 07:00 PT Evaluation and Treatment [CONS] Routine Labs Pending at D/C: none Recommended Follow-up Testing/Procedures: none Planned Operative Procedure(s) after DC: none Hospital Course: See details as above. His main complaint has been weakness and that is improving but very slowly. It is felt he would benefit from swing bed and he is agreeable to that. He is medically stable and will transition to swing bed today. - Patient Instructions Diet: Usual Diet as Tolerated - Discharge Plan Home Medications: Home Meds Albuterol [Proair HFA] 1 - 2 puff INH Q4H PRN 09/10/14 [History] Allopurinol [Zyloprim] 300 mg PO DAILY@0700 09/10/14 [History] Tiotropium [Spiriva HandiHaler] 1 puff PO DAILY@0700 12/24/14 [History] Magnesium Oxide [Magnesium] 500 mg PO DAILY@0700 01/26/16 [History] Diltiazem HCl [Cartia Xt] 180 mg PO DAILY@0700 07/04/16 [History] Bisacodyl [Dulcolax] 5 mg PO DAILY PRN 07/07/16 [History] Docusate Sodium/Sennosides [Senna Plus] 1 tab PO BID@0700,1700 07/07/16 [History ] Albuterol [Proventil Neb Soln] 2.5 mg NEB QID PRN 09/09/16 [History] Budesonide/Formoterol [Symbicort 160-4.5 MCG] 2 puff INH BID@0700,1900 09/09/16 [History] Cranberry Extract [Cranberry] 500 mg PO DAILY@0700 09/09/16 [History] Lactobacillus Combination No.4 [Probiotic] 2 cap PO DAILY@1100 09/09/16 [History ] Lactulose [Generlac] 30 ml PO TID PRN 09/09/16 [History] Multivitamin [Multi-Vitamin Daily] 1 each PO DAILY@0700 09/09/16 [History] Amoxicillin 250 mg PO DAILY@0700 04/26/17 [History] D-Mannose 1 tab PO BID@0700,1700 04/26/17 [History] Nystatin 1 applic TP Q72H 04/26/17 [History] Acetaminophen 1,000 mg PO Q4H PRN MDD 4000 MG 04/27/17 [History] Furosemide [Lasix] 40 mg PO BID@0700,2000 04/27/17 [History] Metoprolol Succinate [Toprol XL] 25 mg PO DAILY@199904/27/17 [History] Warfarin [Coumadin] 5 mg PO DAILY@169904/27/17 [History] - Discharge Summary/Plan Comment DC Time >30 min.: No - General Info Date of Service: 04/30/17 Subjective Update: Patient remains quite weak but this is slightly improved from yesterday. No increased cough or shortness of breath from baseline. Urine is clear. No fever or chills. - Review of Systems General: Reports: No Symptoms HEENT: Reports: No Symptoms Pulmonary: Reports: No Symptoms Cardiovascular: Reports: No Symptoms Gastrointestinal: Reports: No Symptoms Genitourinary: Reports: No Symptoms Musculoskeletal: Reports: No Symptoms Skin: Reports: No Symptoms - Patient Data Vitals - Most Recent: Last Vital Signs Temp 36.3 C 04/30/17 06:00 Pulse 81 04/30/17 06:00 Resp 20 04/30/17 06:00 BP 124/99 H 04/30/17 06:00 Pulse Ox 91 L 04/30/17 06:00 Weight - Most Recent: 101.151 kg I&O - Last 24 hours: Intake & Output 04/29/17 04/30/17 04/30/17 22:59 06:59 14:59 Intake Total 420 Output Total 400 1550 Balance 20 -1550 Lab Results - Last 24 hrs: Laboratory Results - last 24 hr 04/30/17 04/30/17 Range/Units 06:42 06:42 PT 21.5 H (9.8-11.8) SEC INR 2.0 (2.0-3.5) Sodium 139 (136-145) mmol/L Potassium 4.2 (3.5-5.1) mmol/L Chloride 104 (98-107) mmol/L Carbon Dioxide 25 (21-32) mmol/L BUN 29 H (7-18) mg/dL Creatinine 1.3 (0.70-1.30) mg/dL Est Cr Clr Drug Dosing 47.26 mL/min Estimated GFR (MDRD) 53 Glucose 107 H (74-106) mg/dL Calcium 8.7 (8.5-10.1) mg/dL Med Orders - Current: Current Medications Acetaminophen (Tylenol Extra Strength) 1,000 mg PO Q4H PRN PRN Reason: Pain Last Admin: 04/30/17 07:58 Dose: 1,000 mg Albuterol (Proventil Neb Soln) 2.5 mg NEB QID PRN PRN Reason: Cough Last Admin: 04/29/17 14:12 Dose: 2.5 mg Allopurinol (Zyloprim) 300 mg PO DAILY@0700 [facility] Last Admin: 04/30/17 06:26 Dose: 300 mg Bisacodyl (Dulcolax) 5 mg PO DAILY PRN PRN Reason: Constipation Ciprofloxacin (Ciprofloxacin Hcl) 500 mg PO BID [facility] Last Admin: 04/30/17 07:56 Dose: 500 mg Cranberry (Cranberry) 500 mg PO DAILY@0700 [facility] Last Admin: 04/30/17 06:26 Dose: 500 mg Diltiazem HCl (Cardizem Cd) 180 mg PO DAILY@0700 [facility] Last Admin: 04/30/17 06:26 Dose: 180 mg Furosemide (Lasix) 40 mg PO BIDDIURETIC [facility] Last Admin: 04/30/17 07:56 Dose: 40 mg Lactobacillus Rhamnosus (Culturelle) 1 cap PO DAILY [facility] Last Admin: 04/30/17 07:56 Dose: 1 cap Lactulose (Cephulac) 20 gm PO TID PRN PRN Reason: CONSTIPATION Magnesium Oxide (Magnesium Oxide) 400 mg PO DAILY [facility] Last Admin: 04/30/17 07:56 Dose: 400 mg Metoprolol Succinate (Toprol Xl) 25 mg PO DAILY@1999 [facility] Last Admin: 04/29/17 20:19 Dose: 25 mg Mometasone Furoate/Formoterol Fumar (Dulera 200-5 Mcg) 2 puff IH BID@0700,1900 [facility] Last Admin: 04/30/17 06:26 Dose: 2 puff Non-Formulary Medication (D-Mannose [D-Mannose]) 1 tab PO BID@0700,1700 [facility] Omeprazole (Omeprazole) 20 mg PO DAILY [facility] Last Admin: 04/30/17 07:56 Dose: 20 mg Potassium Chloride (Klor-Con 10) 10 meq PO DAILY [facility] Last Admin: 04/30/17 07:56 Dose: 10 meq Senna/Docusate Sodium (Senna Plus) 1 tab PO BID@0700,1700 [facility] Last Admin: 04/30/17 06:26 Dose: 1 tab Sodium Chloride (Saline Flush) 10 ml FLUSH ASDIRECTED PRN PRN Reason: Keep Vein Open Last Admin: 04/28/17 07:49 Dose: 10 ml Tiotropium [place] (Spiriva Handihaler) 18 mcg INH DAILY@0700 [facility] Last Admin: 04/30/17 06:27 Dose: 1 inhalation Vitamin B Complex/Vit C/Vit E/Zinc (Stress Formula With Zinc) 1 tab PO DAILY@ 0700 [facility] Last Admin: 04/30/17 06:26 Dose: 1 tab Warfarin Sodium (Coumadin) 5 mg PO DAILY@1700 [facility] Last Admin: 04/29/17 17:46 Dose: 5 mg Discontinued Medications Cefepime HCl (Maxipime) 2 gm IV ONETIME ONE Stop: 04/27/17 14:10 Last Admin: 04/27/17 14:41 Dose: 2 gm Cefepime HCl (Maxipime) 2 gm IV Q12H [facility] Stop: 04/28/17 13:00 Last Admin: 04/28/17 09:46 Dose: 2 gm Furosemide (Lasix) 40 mg PO BID@0700,1999 [facility] Non-Formulary Medication (Magnesium Oxide [Magnesium]) 500 mg PO DAILY@0700 [facility] - Exam General: Reports: Alert, Cooperative, No Acute Distress HEENT: Reports: Mucous Membr. Moist/[place] Neck: Reports: Supple, Trachea Midline, No Thyromegaly. Denies: Lymphadenopathy Lungs: Reports: Clear to Auscultation, Normal Respiratory Effort Cardiovascular: Reports: Regular Rate, Irregular Rhythm GI/Abdominal Exam: Normal Bowel Sounds, Soft, Non-Tender, No Organomegaly, No Distention, No Mass Extremities: Non-Tender, No Pedal Edema, Normal Capillary Refill Skin: Reports: Warm, Dry, Intact *Q Meaningful Use (DIS) - VTE *Q VTE Criteria *Q: - Stroke *Q Stroke Criteria *Q: - AMI *Q AMI Criteria *Q:
[2017-04-30 10:35] VITALS: BP 112/62
== END 2017-04-30 13:20 | disposition swing bed (61) | DRG 690 ==
LOC: VM.MS 12:36
PROVIDERS: ADMIT Internal Medicine; ATTEND Internal Medicine
DX: N39.0 Urinary tract infection, site not specified (principal); R78.81 Bacteremia; I50.32 Chronic diastolic (congestive) heart failure; J96.11 Chronic respiratory failure with hypoxia; B96.1 Klebsiella pneumoniae [K. pneumoniae] as the cause of diseases classified elsewhere; R53.1 Weakness; J44.9 Chronic obstructive pulmonary disease, unspecified; N18.9 Chronic kidney disease, unspecified; I48.2 Chronic atrial fibrillation; Z79.01 Long term (current) use of anticoagulants; M10.9 Gout, unspecified; Z85.51 Personal history of malignant neoplasm of bladder; E78.5 Hyperlipidemia, unspecified; E78.1 Pure hyperglyceridemia; Z86.711 Personal history of pulmonary embolism; Z79.899 Other long term (current) drug therapy
CPT/HCPCS: 36415; 80048; 83735; 85025; 85610; 94760; 97110-GP; 97161-GP; 97530-GP; A9270-GY; J0692; J7050; J7620-GY

== ENCOUNTER 2017-04-30 13:04 | Inpatient (IN) | payer MEDICARE, BC ==
--- NOTE | 2017-04-30 15:50 | PCM.HP ---
H&P History of Present Illness - General Date of Service: 04/30/17 Admit Problem/Dx: Admission Diagnosis/Problem Admission Diagnosis/Problem UTI, Urinary tract infectious disease Source of Information: Patient History Limitations: Reports: No Limitations - History of Present Illness Initial Comments - Free Text/Narative: Mr. Aragon is an 81 yo male admitted to swing bed for strengthening after an acute hospitalization for a UTI. He had presented 4 days ago with generalized weakness and was diagnosed with klebsiella bacteremia secondary to complicated UTI. He did not have any other symptoms besides his weakness. He had improved but slowly and it was felt he could benefit from strengthening before returning home. He was in agreement and is admitted to swing bed today. - Related Data Allergies/Adverse Reactions: Allergies Allergy/AdvReac Type Severity Reaction Status Date / Time No Known Allergies Allergy Verified 04/26/17 20:06 Home Medications: Home Meds Allopurinol [Zyloprim] 300 mg PO DAILY@0700 09/10/14 [History] Tiotropium [Spiriva HandiHaler] 1 puff PO DAILY@0700 12/24/14 [History] Magnesium Oxide [Magnesium] 500 mg PO DAILY@0700 01/26/16 [History] Diltiazem HCl [Cartia Xt] 180 mg PO DAILY@0700 07/04/16 [History] Bisacodyl [Dulcolax] 5 mg PO DAILY PRN 07/07/16 [History] Docusate Sodium/Sennosides [Senna Plus] 1 tab PO BID@0700,1700 07/07/16 [History ] Albuterol [Proventil Neb Soln] 2.5 mg NEB QID PRN 09/09/16 [History] Budesonide/Formoterol [Symbicort 160-4.5 MCG] 2 puff INH BID@0700,1900 09/09/16 [History] Cranberry Extract [Cranberry] 500 mg PO DAILY@0700 09/09/16 [History] Lactobacillus Combination No.4 [Probiotic] 1 cap PO DAILY@1100 09/09/16 [History ] Lactulose [Generlac] 30 ml PO TID PRN 09/09/16 [History] Multivitamin [Multi-Vitamin Daily] 1 each PO DAILY@0700 09/09/16 [History] D-Mannose 1 tab PO BID@0700,1700 02/04/18 [History] Furosemide [Lasix] 40 mg PO BID@07,199904/27/17 [History] Metoprolol Succinate [Toprol XL] 25 mg PO DAILY@199904/27/17 [History] Warfarin [Coumadin] 5 mg PO DAILY@17004/27/17 [History] Acetaminophen [Tylenol Extra Strength] 1,000 mg PO Q4H PRN 04/30/17 [History] Ciprofloxacin HCl [Cipro] 500 mg PO BID 04/30/17 [History] Omeprazole 20 mg PO DAILY 04/30/17 [History] Potassium Chloride 10 meq PO DAILY 04/30/17 [History] Past Medical History HEENT History: Reports: Impaired Vision Cardiovascular History: Reports: Afib, Aneurysm, Heart Failure, High Cholesterol , Hypertension, Pulmonary Hypertension, Other (See Below) Other Cardiovascular History: AAA Respiratory History: Reports: COPD, PE, SOB Other Respiratory History: hypoxia, oxygen dependent Gastrointestinal History: Reports: Chronic Constipation Genitourinary History: Reports: Hydronephrosis, Renal Calculus, UTI, Recurrent Other Genitourinary History: kidney stones Musculoskeletal History: Reports: Gout, Other (See Below) Other Musculoskeletal History: collapsed vertebra, compression fracture of spine Neurological History: Reports: Other (See Below) Other Neuro History: mild cognitive impairment Psychiatric History: Reports: Other (See Below) Other Psychiatric History: adjustment disorder Endocrine/Metabolic History: Reports: None Hematologic History: Reports: Other (See Below) Other Hematologic History: coumadin therapy Immunologic History: Reports: None Oncologic (Cancer) History: Reports: Bladder Dermatologic History: Reports: Other (See Below) Other Dermatologic History: lymphadenopathy - Infectious Disease History Infectious Disease History: Reports: None - Past Surgical History Cardiovascular Surgical History: Reports: AAA Repair Social & Family History - Family History Cardiac: Reports: CAD Respiratory: Reports: None GI: Reports: None : Reports: None OBGYN: Reports: None Musculoskeletal: Reports: Arthritis Neurological: Reports: None Psychiatric: Reports: None Endocrine/Metabolic: Reports: Diabetes, type II Hematologic: Reports: None Immunologic: Reports: None Oncologic: Reports: Bladder, Breast, Colon, Skin - Tobacco Use Smoking Status *Q: Former Smoker Years of Tobacco use: 5 Packs/Tins Daily: 0.5 Used Tobacco, but Quit: Yes Month Tobacco Last Used: years Second Hand Smoke Exposure: No - Caffeine Use Caffeine Use: Reports: Coffee - Alcohol Use Days Per Week of Alcohol Use: 0 Alcohol Use in Last Twelve Months: No - Recreational Drug Use Recreational Drug Use: No - Living Situation & Occupation Living situation: Reports: , Alone Occupation: Retired H&P Review of Systems - Review of Systems: Review Of Systems: See Below General: Reports: No Symptoms HEENT: Reports: No Symptoms Pulmonary: Reports: No Symptoms Cardiovascular: Reports: No Symptoms Gastrointestinal: Reports: No Symptoms Genitourinary: Reports: No Symptoms Musculoskeletal: Reports: No Symptoms Skin: Reports: No Symptoms Neurological: Reports: No Symptoms Exam - Exam Exam: See Below - Exam General: Alert, Cooperative HEENT: Conjunctiva Clear, Mucosa Moist & [place], Posterior Pharynx Clear, Pupils Equal, Pupils Reactive Neck: Supple, Trachea Midline. No: Lymphadenopathy, Thyromegaly Lungs: Clear to Auscultation, Normal Respiratory Effort Cardiovascular: Regular Rate, Normal S1, Normal S2, Irregular Rhythm, Systolic Murmur GI/Abdominal Exam: Normal Bowel Sounds, Soft, Non-Tender, No Organomegaly, No Distention, No Mass Extremities: Non-Tender, No Pedal Edema, Normal Capillary Refill Peripheral Pulses: 2+: Radial (L), Radial (R), Posterior Tibial (L), Posterior Tibial (R) Skin: Warm, Dry, Intact *Q Meaningful Use (ADM) - VTE *Q VTE Criteria *Q: VTE Anticoagulation Contraindications: Med/TX Not Indicated/Need - Stroke *Q Stroke Criteria *Q: - AMI *Q AMI Criteria *Q: - Problem List (1) Weakness SNOMED Code(s): 71639006 ICD Code: R53.1 - WEAKNESS Status: Acute Current Visit: No Problem Details: - Secondary to acute illness. - Expected for this to take longer than usual to recover from in the setting of bacteremia. - PT eval and treat. (2) Gram-negative bacteremia SNOMED Code(s): 198261241311 ICD Code: R78.81 - BACTEREMIA Status: Acute Current Visit: No Problem Details: - Secondary to UTI. - Continue ciprofloxacin. Will plan for total of 2 week course of antibiotics based on ID recommendations. (3) UTI, Urinary tract infectious disease SNOMED Code(s): 11691696 ICD Code: N39.0 - URINARY TRACT INFECTION, SITE NOT SPECIFIED Status: Acute Priority: Low Current Visit: No Problem Details: - Continue ciprofloxacin as above. - Planning to transition to cephalexin instead of amoxicillin after this course is completed based on ID recommendations. (4) COPD (chronic obstructive pulmonary disease) SNOMED Code(s): 25806189 ICD Code: J44.9 - CHRONIC OBSTRUCTIVE PULMONARY DISEASE, UNSPECIFIED Status : Chronic Current Visit: No Problem Details: - No symptoms of COPD exacerbation. - Continue home medications. Qualifiers: (5) Chronic anticoagulation SNOMED Code(s): 475552097 ICD Code: Z79.01 - [facility] (CURRENT) USE OF ANTICOAGULANTS Status: Chronic Current Visit: No Problem Details: - INR therapeutic today. - Plan to recheck tomorrow. - Continue home medications. (6) Chronic atrial fibrillation SNOMED Code(s): 220625483 ICD Code: I48.2 - CHRONIC ATRIAL FIBRILLATION Status: Chronic Current Visit: No Problem Details: - Rates appropriate. - Continue home medications. (7) Chronic kidney disease SNOMED Code(s): 887720680 ICD Code: N18.9 - CHRONIC KIDNEY DISEASE, UNSPECIFIED Status: Chronic Current Visit: No Problem Details: - Creatinine back to baseline today. - Will plan recheck BMP on Thursday since his lasix was just restarted today. Qualifiers: (8) Chronic respiratory failure with hypoxia SNOMED Code(s): 878337151 ICD Code: J96.11 - CHRONIC RESPIRATORY FAILURE WITH HYPOXIA Status: Chronic Current Visit: No Problem Details: - He is at his home oxygen requirements right now. (9) Diastolic heart failure SNOMED Code(s): 173728594 ICD Code: I50.30 - UNSPECIFIED DIASTOLIC (CONGESTIVE) HEART FAILURE Status : Chronic Current Visit: No Problem Details: - No evidence of CHF exacerbation. - Continue home medications. Qualifiers: (10) Gout SNOMED Code(s): 28450796 ICD Code: M10.9 - GOUT, UNSPECIFIED Status: Chronic Current Visit: No Problem Details: - No current symptoms. - Continue allopurinol. Qualifiers: Gout site: unspecified site Gout etiology: unspecified cause Chronicity: chronic Presence of tophus: without tophus Qualified Code(s): M1A.9XX0 - Chronic gout, unspecified, without tophus (tophi) Problem List Initiated/Reviewed/Updated: Yes Orders Last 24hrs: Active Orders 24 hr Category Date Time Status Patient Status [ADT] Routine ADT 04/30/17 13:20 Active Notify Provider Vital Signs [RC] ASDIRECTED Care 04/30/17 15:43 Ordered Oxygen Therapy [RC] PRN Care 04/30/17 15:42 Ordered Up With Assistance [RC] ASDIRECTED Care 04/30/17 15:42 Ordered VTE/DVT Education [RC] PER UNIT ROUTINE Care 04/30/17 15:42 Ordered Vital Signs [RC] PER UNIT ROUTINE Care 04/30/17 15:42 Ordered Regular Diet [DIET] Diet 04/30/17 Dinner Ordered Anticoagulation Contraindications VTE [AST] Per Unit Oth 04/30/17 15:42 Ordered Routine Resuscitation Status Routine Resus Stat 04/30/17 15:42 Ordered Assessment/Plan Comment:: 81 yo male admitted to swing bed for strengthening after an acute hospitalization. PT to evaluate and treat. Home medications will be continued. He will also continue on ciprofloxacin for treatment of his UTI and bacteremia. He does not require VTE prophylaxis as he is on therapeutic anticoagulation with warfarin. He wishes to be DNR/DNI. He will be admitted until PT feels he is safe to return home.
[2017-04-30] MEDS ORDERED: Lactulose Soln 10 GM/15 ML 30 ML UD Cup PO PRN (15:56)
[2017-04-30] MEDS ORDERED: Albuterol 0.083% 2.5 MG/3 ML Neb Soln NEB PRN (15:56)
[2017-04-30] MEDS ORDERED: Bisacodyl 5 MG Tab PO PRN (15:56)
[2017-04-30] MEDS: Warfarin 5 MG Tab PO SCH (17:27)
[2017-04-30] MEDS: Formoterol/Mometasone 200-5 MCG 8.8 GM Inhaler IH SCH ×2 (17:28→18:13)
[2017-04-30] MEDS: Ciprofloxacin 500 MG Tab PO SCH (20:51)
[2017-04-30] MEDS: Furosemide 40 MG Tab PO SCH (20:51)
[2017-04-30] MEDS: Metoprolol Succinate 25 MG Tab.ER PO SCH (20:51)
[2017-05-01] MEDS: Furosemide 40 MG Tab PO SCH ×2 (06:33→20:05)
[2017-05-01] MEDS: Multivitamins with Iron/Calcium/Folic Acid/Minerals Tab PO SCH (06:33)
[2017-05-01] MEDS: Magnesium Oxide 400 MG Tab PO SCH (06:33)
[2017-05-01] MEDS: Cranberry 500 MG Cap PO SCH (06:33)
[2017-05-01] MEDS: Tiotropium Inhaler 18 MCG Inhalation Powder Cap Kit of 5 INH SCH (06:33)
[2017-05-01] MEDS: Formoterol/Mometasone 200-5 MCG 8.8 GM Inhaler IH SCH ×2 (06:33→20:06)
[2017-05-01] MEDS: Omeprazole 20 MG Cap.CR PO SCH (06:34)
[2017-05-01] MEDS: Diltiazem 180 MG Cap.CD PO SCH (06:34)
[2017-05-01] MEDS: Potassium Chloride 10 MEQ Tab.ER PO SCH (08:33)
[2017-05-01] MEDS: Ciprofloxacin 500 MG Tab PO SCH ×2 (08:33→20:05)
--- NOTE | 2017-05-01 12:29 | PCM.SN ---
- Free Text/Narrative Note: S: Called by nursing with a couple of concerns. First, telepharmacy concerned on dosing of allopurinol. However, with his CrCl in the 40's, no dose adjustment is needed based on micromedex. Second, he had an episode of confusion last night where he thought it was daytime and he needed to do PT. He does not recall this. He denies any headaches, weakness, numbness, tingling, or visual changes. O: Vitals reviewed. He is alert and oriented this morning. CN 2-12 intact. Strength equal bilaterally in the upper and lower extremities. Sensation intact. DTR's 2+ and symmetric in the upper and lower extremities. Gait is normal for age. A/P: #1 Delirium - Likely hospital related vs. from acute illness. - Would not do any further work-up at this time. - Reorienting techniques frequently. - Will get him home as soon as it is deemed safe by PT.
[2017-05-01] MEDS: Lactobacillus Rhamnosus GG (Probiotic) Cap PO SCH (12:50)
[2017-05-01] MEDS: Warfarin 5 MG Tab PO SCH (17:25)
[2017-05-01] MEDS: Allopurinol 300 MG Tab PO SCH (17:25)
[2017-05-01] MEDS: Metoprolol Succinate 25 MG Tab.ER PO SCH (20:05)
[2017-05-02] MEDS: Furosemide 40 MG Tab PO SCH ×2 (05:59→20:11)
[2017-05-02] MEDS: Omeprazole 20 MG Cap.CR PO SCH (05:59)
[2017-05-02] MEDS: Magnesium Oxide 400 MG Tab PO SCH (05:59)
[2017-05-02] MEDS: Diltiazem 180 MG Cap.CD PO SCH (05:59)
[2017-05-02] MEDS: Multivitamins with Iron/Calcium/Folic Acid/Minerals Tab PO SCH (05:59)
[2017-05-02] MEDS: Tiotropium Inhaler 18 MCG Inhalation Powder Cap Kit of 5 INH SCH (05:59)
[2017-05-02] MEDS: Allopurinol 300 MG Tab PO SCH (05:59)
[2017-05-02] MEDS: Cranberry 500 MG Cap PO SCH (06:00)
[2017-05-02] MEDS: Potassium Chloride 10 MEQ Tab.ER PO SCH (09:28)
[2017-05-02] MEDS: Ciprofloxacin 500 MG Tab PO SCH ×2 (09:28→20:11)
[2017-05-02] MEDS: Formoterol/Mometasone 200-5 MCG 8.8 GM Inhaler IH SCH ×2 (09:29→20:12)
[2017-05-02] MEDS: Acetaminophen 500 MG Tab PO PRN ×2 (09:57→20:11)
[2017-05-02] MEDS: Lactobacillus Rhamnosus GG (Probiotic) Cap PO SCH (13:15)
[2017-05-02] MEDS: Warfarin 5 MG Tab PO SCH (18:45)
[2017-05-02] MEDS: Metoprolol Succinate 25 MG Tab.ER PO SCH (20:11)
[2017-05-03] MEDS: Omeprazole 20 MG Cap.CR PO SCH (06:31)
[2017-05-03] MEDS: Magnesium Oxide 400 MG Tab PO SCH (06:31)
[2017-05-03] MEDS: Diltiazem 180 MG Cap.CD PO SCH (06:32)
[2017-05-03] MEDS: Allopurinol 300 MG Tab PO SCH (06:32)
[2017-05-03] MEDS: Multivitamins with Iron/Calcium/Folic Acid/Minerals Tab PO SCH (06:32)
[2017-05-03] MEDS: Furosemide 40 MG Tab PO SCH ×2 (06:32→19:27)
[2017-05-03] MEDS: Cranberry 500 MG Cap PO SCH (06:32)
[2017-05-03] MEDS: Tiotropium Inhaler 18 MCG Inhalation Powder Cap Kit of 5 INH SCH (06:35)
[2017-05-03] MEDS: Potassium Chloride 10 MEQ Tab.ER PO SCH (08:37)
[2017-05-03] MEDS: Ciprofloxacin 500 MG Tab PO SCH ×2 (08:38→19:27)
[2017-05-03] MEDS: Formoterol/Mometasone 200-5 MCG 8.8 GM Inhaler IH SCH ×2 (08:38→19:28)
[2017-05-03] MEDS: Acetaminophen 500 MG Tab PO PRN (08:46)
[2017-05-03] MEDS: Lactobacillus Rhamnosus GG (Probiotic) Cap PO SCH (11:40)
[2017-05-03] MEDS: Metoprolol Succinate 25 MG Tab.ER PO SCH (19:27)
[2017-05-03] MEDS: Warfarin 5 MG Tab PO SCH (19:27)
[2017-05-04] MEDS: Allopurinol 300 MG Tab PO SCH (06:01)
[2017-05-04] MEDS: Tiotropium Inhaler 18 MCG Inhalation Powder Cap Kit of 5 INH SCH (06:02)
[2017-05-04] MEDS: Omeprazole 20 MG Cap.CR PO SCH (06:02)
--- NOTE | 2017-05-04 08:45 | PCM.SN ---
- Free Text/Narrative Note: Labs reviewed and stable. Can check INR when next due per anticoagulation clinic.
[2017-05-04] MEDS: Cranberry 500 MG Cap PO SCH (08:55)
[2017-05-04] MEDS: Potassium Chloride 10 MEQ Tab.ER PO SCH (08:55)
[2017-05-04] MEDS: Diltiazem 180 MG Cap.CD PO SCH (08:55)
[2017-05-04] MEDS: Furosemide 40 MG Tab PO SCH ×2 (08:55→20:16)
[2017-05-04] MEDS: Formoterol/Mometasone 200-5 MCG 8.8 GM Inhaler IH SCH ×2 (08:55→20:16)
[2017-05-04] MEDS: Ciprofloxacin 500 MG Tab PO SCH ×2 (08:55→20:16)
[2017-05-04] MEDS: Magnesium Oxide 400 MG Tab PO SCH (08:56)
[2017-05-04] MEDS: Multivitamins with Iron/Calcium/Folic Acid/Minerals Tab PO SCH (08:56)
[2017-05-04] MEDS: Lactobacillus Rhamnosus GG (Probiotic) Cap PO SCH (10:50)
[2017-05-04] MEDS: Warfarin 5 MG Tab PO SCH (20:16)
[2017-05-04] MEDS: Metoprolol Succinate 25 MG Tab.ER PO SCH (20:16)
[2017-05-05] MEDS: Omeprazole 20 MG Cap.CR PO SCH (06:21)
[2017-05-05] MEDS: Tiotropium Inhaler 18 MCG Inhalation Powder Cap Kit of 5 INH SCH (06:21)
[2017-05-05] MEDS: Allopurinol 300 MG Tab PO SCH (06:21)
[2017-05-05] MEDS: Potassium Chloride 10 MEQ Tab.ER PO SCH (08:04)
[2017-05-05] MEDS: Magnesium Oxide 400 MG Tab PO SCH (08:05)
[2017-05-05] MEDS: Furosemide 40 MG Tab PO SCH ×2 (08:05→20:26)
[2017-05-05] MEDS: Ciprofloxacin 500 MG Tab PO SCH ×2 (08:05→20:26)
[2017-05-05] MEDS: Cranberry 500 MG Cap PO SCH (08:05)
[2017-05-05] MEDS: Multivitamins with Iron/Calcium/Folic Acid/Minerals Tab PO SCH (08:05)
[2017-05-05] MEDS: Diltiazem 180 MG Cap.CD PO SCH (08:05)
[2017-05-05] MEDS: Formoterol/Mometasone 200-5 MCG 8.8 GM Inhaler IH SCH ×2 (08:06→20:28)
[2017-05-05] MEDS: Lactobacillus Rhamnosus GG (Probiotic) Cap PO SCH (12:46)
[2017-05-05] MEDS: Warfarin 5 MG Tab PO SCH (20:27)
[2017-05-05] MEDS: Metoprolol Succinate 25 MG Tab.ER PO SCH (20:27)
[2017-05-06] MEDS: Allopurinol 300 MG Tab PO SCH (06:24)
[2017-05-06] MEDS: Tiotropium Inhaler 18 MCG Inhalation Powder Cap Kit of 5 INH SCH (06:24)
[2017-05-06] MEDS: Omeprazole 20 MG Cap.CR PO SCH (06:24)
[2017-05-06] MEDS: Diltiazem 180 MG Cap.CD PO SCH (07:41)
[2017-05-06] MEDS: Cranberry 500 MG Cap PO SCH (07:41)
[2017-05-06] MEDS: Furosemide 40 MG Tab PO SCH ×2 (07:41→20:13)
[2017-05-06] MEDS: Ciprofloxacin 500 MG Tab PO SCH ×2 (07:41→20:13)
[2017-05-06] MEDS: Formoterol/Mometasone 200-5 MCG 8.8 GM Inhaler IH SCH ×2 (07:42→20:14)
[2017-05-06] MEDS: Potassium Chloride 10 MEQ Tab.ER PO SCH (07:42)
[2017-05-06] MEDS: Magnesium Oxide 400 MG Tab PO SCH (07:42)
[2017-05-06] MEDS: Multivitamins with Iron/Calcium/Folic Acid/Minerals Tab PO SCH (07:42)
[2017-05-06] MEDS: Lactobacillus Rhamnosus GG (Probiotic) Cap PO SCH (12:02)
[2017-05-06] MEDS: Warfarin 5 MG Tab PO SCH (20:13)
[2017-05-06] MEDS: Metoprolol Succinate 25 MG Tab.ER PO SCH (20:13)
[2017-05-07] MEDS: Allopurinol 300 MG Tab PO SCH (06:27)
[2017-05-07] MEDS: Omeprazole 20 MG Cap.CR PO SCH (06:27)
[2017-05-07 06:32] VITALS: BP 101/62
[2017-05-07] MEDS: Tiotropium Inhaler 18 MCG Inhalation Powder Cap Kit of 5 INH SCH (07:29)
--- NOTE | 2017-05-07 08:52 | PCM.DCSUM1 ---
Discharge Summary - Hospital Course Brief History: Mr. Aragon is an 81 yo male who was admitted to swing bed for strengthening after an acute hospitalization for UTI complicated by bacteremia. - Discharge Data Discharge Date: 05/07/17 Discharge Disposition: Home, Self-Care 01 Condition: Good - Discharge Diagnosis/Problem(s) (1) Weakness SNOMED Code(s): 55520616 ICD Code: R53.1 - WEAKNESS Status: Acute Current Visit: No Problem Details: His weakness is secondary to acute illness. He is doing much better. He has been cleared by PT to return home independently and is comfortable with this himself. (2) Gram-negative bacteremia SNOMED Code(s): 826055656967 ICD Code: R78.81 - BACTEREMIA Status: Acute Current Visit: No Problem Details: Both the urine and blood cultures grew klebsiella that is susceptible to ciprofloxacin. Infectious disease (ID) was contacted and recommended total of a 2 week course of antibiotics. He started on cefepime and then was transitioned to ciprofloxacin after susceptibilities were available. His antibiotic course will be completed on 05/11/17. Then he will transition to cephalexin for prophylaxis instead of the amoxicillin also as recommended by ID. (3) UTI, Urinary tract infectious disease SNOMED Code(s): 61260648 ICD Code: N39.0 - URINARY TRACT INFECTION, SITE NOT SPECIFIED Status: Acute Priority: Low Current Visit: No Problem Details: See details as above under gram negative bacteremia. He will complete his 2 week course of antibiotics on 05/11 and then transition to cephalexin for prophylaxis. (4) COPD (chronic obstructive pulmonary disease) SNOMED Code(s): 75975754 ICD Code: J44.9 - CHRONIC OBSTRUCTIVE PULMONARY DISEASE, UNSPECIFIED Status : Chronic Current Visit: No Problem Details: Has had no symptoms of a COPD exacerbation. His home medications were continued. 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 Anticoagulation clinic updated that he was in the hospital and will be discharged on ciprofloxacin. Home warfarin dosing was continued. (6) Chronic atrial fibrillation SNOMED Code(s): 294259953 ICD Code: I48.2 - CHRONIC ATRIAL FIBRILLATION Status: Chronic Current Visit: No Problem Details: Rates appropriate. His home medications were continued. (7) Chronic kidney disease SNOMED Code(s): 657082933 ICD Code: N18.9 - CHRONIC KIDNEY DISEASE, UNSPECIFIED Status: Chronic Current Visit: No Problem Details: Creatinine elevated early in his acute admission but returned to baseline with fluids and holding his lasix. His lasix was restarted prior to transition to swing bed without incident. Follow-up labs remained stable. Qualifiers: (8) Chronic respiratory failure with hypoxia SNOMED Code(s): 843685523 ICD Code: J96.11 - CHRONIC RESPIRATORY FAILURE WITH HYPOXIA Status: Chronic Current Visit: No Problem Details: His home oxygen was continued per his usual. (9) Diastolic heart failure SNOMED Code(s): 900135766 ICD Code: I50.30 - UNSPECIFIED DIASTOLIC (CONGESTIVE) HEART FAILURE Status : Chronic Current Visit: No Problem Details: No evidence of CHF exacerbation. His home medications were continued. Qualifiers: (10) Gout SNOMED Code(s): 75504650 ICD Code: M10.9 - GOUT, UNSPECIFIED Status: Chronic Current Visit: No Problem Details: No current symptoms. His home medications were continued. Qualifiers: Gout site: unspecified site Gout etiology: unspecified cause Chronicity: chronic Presence of tophus: without tophus Qualified Code(s): M1A.9XX0 - Chronic gout, unspecified, without tophus (tophi) - Patient Summary/Data Operative Procedure(s) Performed: none Complications: none Consults: Consultations 05/01/17 08:41 Consult to Physical Therapy [PT Evaluation and Treatment] [CONS] Routine Labs Pending at D/C: none Recommended Follow-up Testing/Procedures: none Planned Operative Procedure(s) after DC: none Hospital Course: See details above. His strength improved nicely and he is prepared for dismissal. His home medications were continued. His stay was otherwise uncomplicated. He will follow up in clinic in 1 week. - Patient Instructions Diet: Usual Diet as Tolerated Activity: As Tolerated - Discharge Plan Prescriptions/Med Rec: Ciprofloxacin HCl [Cipro] 500 mg PO BID #9 tablet Home Medications: Home Meds Allopurinol [Zyloprim] 300 mg PO DAILY@0700 09/10/14 [History] Tiotropium [Spiriva HandiHaler] 1 puff PO DAILY@0700 12/24/14 [History] Magnesium Oxide [Magnesium] 500 mg PO DAILY@0700 01/26/16 [History] Diltiazem HCl [Cartia Xt] 180 mg PO DAILY@0700 07/04/16 [History] Bisacodyl [Dulcolax] 5 mg PO DAILY PRN 07/07/16 [History] Docusate Sodium/Sennosides [Senna Plus] 1 tab PO BID@0700,1700 07/07/16 [History ] Albuterol [Proventil Neb Soln] 2.5 mg NEB QID PRN 09/09/16 [History] Budesonide/Formoterol [Symbicort 160-4.5 MCG] 2 puff INH BID@0700,1900 09/09/16 [History] Cranberry Extract [Cranberry] 500 mg PO DAILY@0700 09/09/16 [History] Lactobacillus Combination No.4 [Probiotic] 1 cap PO DAILY@1100 09/09/16 [History ] Lactulose [Generlac] 30 ml PO TID PRN 09/09/16 [History] Multivitamin [Multi-Vitamin Daily] 1 each PO DAILY@0700 09/09/16 [History] D-Mannose 1 tab PO BID@0700,1700 04/26/17 [History] Furosemide [Lasix] 40 mg PO BID@0700,199904/27/17 [History] Metoprolol Succinate [Toprol XL] 25 mg PO DAILY@199904/27/17 [History] Warfarin [Coumadin] 5 mg PO DAILY@1700 04/27/17 [History] Omeprazole 20 mg PO DAILY 04/30/17 [History] Potassium Chloride 10 meq PO DAILY 04/30/17 [History] Acetaminophen [Tylenol Extra Strength] 1,000 mg PO Q8H PRN #0 05/07/17 [Rx] Ciprofloxacin HCl [Cipro] 500 mg PO BID #9 tablet 05/07/17 [Rx] Referrals: Larisa Ellsworth MD [Primary Care Provider] - 05/14/17 - Discharge Summary/Plan Comment DC Time >30 min.: No - General Info Date of Service: 05/07/17 Subjective Update: Patient is doing well this morning. Looking forward to getting home today. Has done some walking and activities around his room and feels he is ready to be discharged. He denies any other symptoms. - Review of Systems General: Reports: No Symptoms HEENT: Reports: No Symptoms Pulmonary: Reports: No Symptoms Cardiovascular: Reports: No Symptoms Gastrointestinal: Reports: No Symptoms Genitourinary: Reports: No Symptoms Musculoskeletal: Reports: No Symptoms Skin: Reports: No Symptoms Neurological: Reports: No Symptoms - Patient Data Vitals - Most Recent: Last Vital Signs Temp 36.5 C 05/07/17 06:00 Pulse 79 05/07/17 06:00 Resp 18 05/07/17 06:00 BP 101/62 05/07/17 06:00 Pulse Ox 93 L 05/07/17 07:52 Weight - Most Recent: 97.704 kg I&O - Last 24 hours: Intake & Output 05/06/17 05/07/17 05/07/17 22:59 06:59 14:59 Intake Total 720 600 Output Total 400 1650 Balance 320 -1050 Med Orders - Current: Current Medications Acetaminophen (Tylenol Extra Strength) 1,000 mg PO Q12H PRN PRN Reason: Pain Last Admin: 05/03/17 08:46 Dose: 1,000 mg Albuterol (Proventil Neb Soln) 2.5 mg NEB QIDRT PRN PRN Reason: Cough Allopurinol (Zyloprim) 300 mg PO DAILY@0700 [facility] Last Admin: 05/07/17 06:27 Dose: 300 mg Bisacodyl (Dulcolax) 5 mg PO DAILY PRN PRN Reason: Constipation Ciprofloxacin (Ciprofloxacin Hcl) 500 mg PO BID [facility] Stop: 05/11/17 20:01 Last Admin: 05/06/17 20:13 Dose: 500 mg Cranberry (Cranberry) 500 mg PO DAILY [facility] Last Admin: 05/06/17 07:41 Dose: 500 mg Diltiazem HCl (Cardizem Cd) 180 mg PO DAILY [facility] Last Admin: 05/06/17 07:41 Dose: 180 mg Furosemide (Lasix) 40 mg PO BID [facility] Last Admin: 05/06/17 20:13 Dose: 40 mg Lactobacillus Rhamnosus (Culturelle) 1 cap PO DAILY@1100 [facility] Last Admin: 05/06/17 12:02 Dose: 1 cap Lactulose (Cephulac) 20 gm PO TID PRN PRN Reason: Constipation Magnesium Oxide (Magnesium Oxide) 400 mg PO DAILY [facility] Last Admin: 05/06/17 07:42 Dose: 400 mg Metoprolol Succinate (Toprol Xl) 25 mg PO DAILY@1999 [facility] Last Admin: 05/06/17 20:13 Dose: 25 mg Mometasone Furoate/Formoterol Fumar (Dulera 200-5 Mcg) 2 puff IH BID@799,1999 [facility] Last Admin: 05/06/17 20:14 Dose: 2 puff Multivitamins/Minerals (Thera M Plus) 1 tab PO DAILY [facility] Last Admin: 05/06/17 07:42 Dose: 1 tab Omeprazole (Omeprazole) 20 mg PO ACBREAKFAST [facility] Last Admin: 05/07/17 06:27 Dose: 20 mg Potassium Chloride (Klor-Con 10) 10 meq PO DAILY [facility] Last Admin: 05/06/17 07:42 Dose: 10 meq Senna/Docusate Sodium (Senna Plus) 1 tab PO BID [facility] Last Admin: 05/06/17 20:14 Dose: 1 tab Tiotropium [place] (Spiriva Handihaler) 18 mcg INH DAILY@07 [facility] Last Admin: 05/07/17 07:29 Dose: Not Given Warfarin Sodium (Coumadin) 5 mg PO DAILY@1999 [facility] Last Admin: 05/06/17 20:13 Dose: 5 mg Discontinued Medications Allopurinol (Zyloprim) 300 mg PO DAILY@0700 [facility] Last Admin: 05/03/17 06:32 Dose: 300 mg Cranberry (Cranberry) 500 mg PO DAILY@0700 [facility] Last Admin: 05/03/17 06:32 Dose: 500 mg Diltiazem HCl (Cardizem Cd) 180 mg PO DAILY@0700 [facility] Last Admin: 05/03/17 06:32 Dose: 180 mg Furosemide (Lasix) 40 mg PO BID@ [facility] Last Admin: 05/03/17 19:27 Dose: 40 mg Magnesium Oxide (Magnesium Oxide) 400 mg PO DAILY@0700 [facility] Last Admin: 05/03/17 06:31 Dose: 400 mg Mometasone Furoate/Formoterol Fumar (Dulera 200-5 Mcg) 2 puff IH BID@0700,1900 [facility] Last Admin: 05/01/17 06:33 Dose: 2 puff Multivitamins/Minerals (Thera M Plus) 1 tab PO DAILY@0700 [facility] Last Admin: 05/03/17 06:32 Dose: 1 tab Senna/Docusate Sodium (Senna Plus) 1 tab PO BID@0700,1700 [facility] Last Admin: 05/03/17 06:32 Dose: 1 tab Warfarin Sodium (Coumadin) 5 mg PO DAILY@1700 [facility] Last Admin: 05/02/17 18:45 Dose: 5 mg - Exam General: Reports: Alert, Cooperative, No Acute Distress HEENT: Reports: Mucous Membr. Moist/[place] Neck: Reports: Supple, Trachea Midline, No Thyromegaly. Denies: Lymphadenopathy Lungs: Reports: Clear to Auscultation, Normal Respiratory Effort Cardiovascular: Reports: Regular Rate, Regular Rhythm, No Murmurs GI/Abdominal Exam: Normal Bowel Sounds, Soft, Non-Tender, No Organomegaly, No Distention, No Mass Extremities: Non-Tender, No Pedal Edema, Normal Capillary Refill Skin: Reports: Warm, Dry, Intact *Q Meaningful Use (DIS) - VTE *Q VTE Criteria *Q: VTE Anticoagulation Contraindications: Med/TX Not Indicated/Need - Stroke *Q Stroke Criteria *Q: - AMI *Q AMI Criteria *Q:
[2017-05-07] MEDS: Potassium Chloride 10 MEQ Tab.ER PO SCH (08:55)
[2017-05-07] MEDS: Cranberry 500 MG Cap PO SCH (08:55)
[2017-05-07] MEDS: Furosemide 40 MG Tab PO SCH (08:56)
[2017-05-07] MEDS: Ciprofloxacin 500 MG Tab PO SCH (08:56)
[2017-05-07] MEDS: Magnesium Oxide 400 MG Tab PO SCH (08:56)
[2017-05-07] MEDS: Multivitamins with Iron/Calcium/Folic Acid/Minerals Tab PO SCH (08:56)
[2017-05-07] MEDS: Formoterol/Mometasone 200-5 MCG 8.8 GM Inhaler IH SCH (08:56)
[2017-05-07] MEDS: Diltiazem 180 MG Cap.CD PO SCH (08:56)
== END 2017-05-07 10:40 | disposition home or self-care (01) | DRG 948 ==
LOC: VM.MS 13:20
PROVIDERS: ADMIT Family Medicine; ATTEND Family Medicine
DX: R53.1 Weakness (principal); N39.0 Urinary tract infection, site not specified; J96.11 Chronic respiratory failure with hypoxia; I50.30 Unspecified diastolic (congestive) heart failure; R78.81 Bacteremia; I13.0 Hypertensive heart and chronic kidney disease with heart failure and stage 1 through stage 4 chronic kidney disease, or unspecified chronic kidney disease; J44.9 Chronic obstructive pulmonary disease, unspecified; Z79.01 Long term (current) use of anticoagulants; I48.2 Chronic atrial fibrillation; N18.9 Chronic kidney disease, unspecified; M10.9 Gout, unspecified; R41.0 Disorientation, unspecified; E78.00 Pure hypercholesterolemia, unspecified; H54.7 Unspecified visual loss; Z86.711 Personal history of pulmonary embolism; Z87.891 Personal history of nicotine dependence; Z79.899 Other long term (current) drug therapy
CPT/HCPCS: 36415; 80048; 85610; 94760; 97110-GP; 97116-GP; 97530-GP; A9270-GY

== ENCOUNTER 2017-06-06 20:25 | Inpatient (IN) | payer MEDICARE, BC ==
[2017-06-06 21:29] LABS: CHLORIDE,CL 100 mmol/L (98-107); SODIUM,NA 137 mmol/L (136-145)
--- NOTE | 2017-06-06 23:27 | EDM.PDOC ---
ED HPI GENERAL MEDICAL PROBLEM - General Chief Complaint: General Stated Complaint: weakness Time Seen by Provider: 06/06/17 20:26 Source of Information: Reports: Patient, EMS Notes Reviewed, Family, RN, RN Notes Reviewed History Limitations: Reports: No Limitations - History of Present Illness INITIAL COMMENTS - FREE TEXT/NARRATIVE: Patient is brought to the emergency room at [facility] via EMS for increased weakness that started today. The patient states that he feels more short of breath than usual. The family states that the patient has been gaining more water weight. The patient has a long-standing history of COPD, congestive heart failure, and chronic UTIs. The patient does have a low-grade temp this evening around 100.8. The patient has not had any recent falls. The patient denies any focal neurological deficits. The patient denies any abdominal pain but states he feels his abdomen is a little bit more distended. 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 - Related Data Allergies Allergy/AdvReac Type Severity Reaction Status Date / Time No Known Allergies Allergy Verified 06/06/17 20:32 Home Meds: Home Meds Allopurinol [Zyloprim] 300 mg PO DAILY@0700 09/10/14 [History] Tiotropium [Spiriva HandiHaler] 1 puff PO DAILY@0700 12/24/14 [History] Magnesium Oxide [Magnesium] 500 mg PO DAILY@0700 01/26/16 [History] Diltiazem HCl [Cartia Xt] 180 mg PO DAILY@0700 07/04/16 [History] Bisacodyl [Dulcolax] 5 mg PO DAILY PRN 07/07/16 [History] Docusate Sodium/Sennosides [Senna Plus] 1 tab PO BID@0700,1700 07/07/16 [History ] Albuterol [Proventil Neb Soln] 2.5 mg NEB QID PRN 09/09/16 [History] Budesonide/Formoterol [Symbicort 160-4.5 MCG] 2 puff INH BID@0700,1900 09/09/16 [History] Cranberry Extract [Cranberry] 500 mg PO DAILY@0700 09/09/16 [History] Lactobacillus Combination No.4 [Probiotic] 1 cap PO DAILY@1100 09/09/16 [History ] Lactulose [Generlac] 30 ml PO TID PRN 09/09/16 [History] Multivitamin [Multi-Vitamin Daily] 1 each PO DAILY@0700 09/09/16 [History] D-Mannose 1 tab PO BID@0700,1700 04/26/17 [History] Furosemide [Lasix] 40 mg PO BID@0700,199904/27/17 [History] Metoprolol Succinate [Toprol XL] 25 mg PO DAILY@199904/27/17 [History] Warfarin [Coumadin] 5 mg PO DAILY@17004/27/17 [History] Omeprazole 20 mg PO DAILY 04/30/17 [History] Potassium Chloride 10 meq PO DAILY 04/30/17 [History] Acetaminophen [Tylenol Extra Strength] 1,000 mg PO Q8H PRN #0 05/07/17 [Rx] Cephalexin [Cephalexin] 1 tab PO DAILY 06/06/17 [History] Past Medical History HEENT History: Reports: Impaired Vision Cardiovascular History: Reports: Afib, Aneurysm, Heart Failure, High Cholesterol , Hypertension, Pulmonary Hypertension, Other (See Below) Other Cardiovascular History: AAA Respiratory History: Reports: COPD, PE, SOB Other Respiratory History: hypoxia, oxygen dependent Gastrointestinal History: Reports: Chronic Constipation Genitourinary History: Reports: Hydronephrosis, Renal Calculus, UTI, Recurrent Other Genitourinary History: kidney stones Musculoskeletal History: Reports: Gout, Other (See Below) Other Musculoskeletal History: collapsed vertebra, compression fracture of spine Neurological History: Reports: Other (See Below) Other Neuro History: mild cognitive impairment Psychiatric History: Reports: Other (See Below) Other Psychiatric History: adjustment disorder Endocrine/Metabolic History: Reports: None Hematologic History: Reports: Other (See Below) Other Hematologic History: coumadin therapy Immunologic History: Reports: None Oncologic (Cancer) History: Reports: Bladder Dermatologic History: Reports: Other (See Below) Other Dermatologic History: lymphadenopathy - Infectious Disease History Infectious Disease History: Reports: None - Past Surgical History Cardiovascular Surgical History: Reports: AAA Repair Social & Family History - Family History Family Medical History: Noncontributory Cardiac: Reports: CAD Respiratory: Reports: None GI: Reports: None : Reports: None OBGYN: Reports: None Musculoskeletal: Reports: Arthritis Neurological: Reports: None Psychiatric: Reports: None Endocrine/Metabolic: Reports: Diabetes, type II Hematologic: Reports: None Immunologic: Reports: None Oncologic: Reports: Bladder, Breast, Colon, Skin - Tobacco Use Smoking Status *Q: Former Smoker Years of Tobacco use: 5 Packs/Tins Daily: 0.5 Used Tobacco, but Quit: Yes Month/Year Tobacco Last Used: ? Second Hand Smoke Exposure: No - Caffeine Use Caffeine Use: Reports: Coffee - Alcohol Use Days Per Week of Alcohol Use: 0 - Recreational Drug Use Recreational Drug Use: No - Living Situation & Occupation Living situation: Reports: , Alone Occupation: Retired ED ROS GENERAL - Review of Systems Review Of Systems: See Below Constitutional: Reports: Fever, Weakness, Fatigue. Denies: Chills Respiratory: Reports: Shortness of Breath. Denies: Cough Cardiovascular: Reports: Edema. Denies: Chest Pain, Palpitations GI/Abdominal: Reports: Distension. Denies: Abdominal Pain, Nausea, Vomiting Skin: Reports: No Symptoms Neurological: Reports: No Symptoms ED EXAM, GENERAL - Physical Exam Exam: See Below Exam Limited By: No Limitations General Appearance: Alert, No Apparent Distress Respiratory/Chest: Decreased Breath Sounds, Crackles Cardiovascular: Normal Peripheral Pulses, Irregularly Irregular Peripheral Pulses: 2+: Radial (L), Radial (R) GI/Abdominal: Soft, Non-Tender, Abnormal Bowel Sounds (Hypoactive) Neurological: Alert, Oriented Skin Exam: Warm, Dry, Normal Color EKG INTERPRETATION EKG Date: 06/06/17 Time: 22:19 Rhythm: A-Fib Rate (Beats/Min): 101 [place]: LAD-Left [place] Deviation P-Wave: Absent QRS: Normal ST-T: Normal QT: Normal NH/PQ Interval: Absent Comparison: No Change EKG Interpretation Comments: 1. Atrial Fibrillation with RVR 2. Marked Left axis deviation 3. Possible AWMI, probably old Course - Vital Signs Last Recorded V/S: Last Vital Signs Temp 37.9 C 06/06/17 23:11 Pulse 92 06/06/17 23:11 Resp 20 06/06/17 23:11 BP 120/65 06/06/17 23:11 Pulse Ox 92 L 06/06/17 23:11 - Orders/Labs/Meds Orders: Active Orders 24 hr Category Date Time Status EKG 12 Lead [EKG Documentation Completion] [RC] STAT Care 06/06/17 20:27 Active Chest 1V Frontal [CR] Stat Exams 06/06/17 22:13 Taken Labs: Laboratory Tests 06/06/17 06/06/17 06/06/17 Range/Units 20:41 20:41 20:41 WBC 12.6 H (4.0-10.0) x10^3/uL RBC 4.31 L (4.5-6.0) x10^6/uL Hgb 14.8 (14.0-18.0) g/dL Hct 43.7 (40.0-52.0) % MCV 101.4 H (78.0-93.0) fL MCH 34.3 H (26.0-32.0) pg MCHC 33.9 (32.0-36.0) g/dL RDW Coeff of Lety 13.7 (10.0-15.0) % Plt Count 220 D (130-400) x10^3/uL Add Manual Diff Yes Neutrophils % (Manual) 74 (50-80) % Band Neutrophils % 3 (0-6) % Lymphocytes % (Manual) 14 L (25-50) % Monocytes % (Manual) 9 (2-11) % Vacuolated Monocytes Rare Toxic Granulation 1+ slight H Platelet Estimate Adequate Giant Platelets Rare H Macrocytosis 2+ moderate H Target Cells Rare Ovalocytes Rare Stomatocytes 1+ slight H Sodium 137 (136-145) mmol/L Potassium 4.2 (3.5-5.1) mmol/L Chloride 100 (98-107) mmol/L Carbon Dioxide 27 (21-32) mmol/L BUN 28 H (7-18) mg/dL Creatinine 1.7 H (0.70-1.30) mg/dL Est Cr Clr Drug Dosing TNP Estimated GFR (MDRD) 39 Glucose 138 H (74-106) mg/dL Lactic Acid 1.7 (0.4-2.0) mmol/L Calcium 9.1 (8.5-10.1) mg/dL Corrected Calcium 9.42 (8.5-10.1) mg/dL Total Bilirubin 0.8 (0.2-1.0) mg/dL AST 36 (15-37) U/L ALT 34 (16-63) U/L Alkaline Phosphatase 77 (46-116) U/L Creatine Kinase 61 (39-308) U/L Troponin I < 0.017 (<=0.056) ng/mL C-Reactive Protein 1.7 H (<=0.9) mg/dL NT-Pro-B Natriuret Pep 1983 H (<=450) pg/mL Total Protein 7.3 (6.4-8.2) g/dL Albumin 3.6 (3.4-5.0) g/dL Globulin 3.7 Albumin/Globulin Ratio 0.97 Urine Color (YELLOW) Urine Appearance (CLEAR) Urine pH (5.0-8.0) Ur Specific [place] Urine Protein (NEGATIVE) mg/dL Urine Glucose (UA) (NEGATIVE) mg/dL Urine Ketones (NEGATIVE) mg/dL Urine Occult Blood (NEGATIVE) Urine Nitrite (NEGATIVE) Urine Bilirubin (NEGATIVE) Urine Urobilinogen (0.2) EU/dL Ur Leukocyte Esterase (NEGATIVE) Urine RBC (NOT SEEN) /HPF Urine WBC (NOT SEEN) /HPF Ur Squamous Epith Cells (NEGATIVE) /HPF Urine Bacteria (NEGATIVE) /HPF Urine Mucus (NEGATIVE) /LPF 06/06/17 Range/Units 22:31 WBC (4.0-10.0) x10^3/uL RBC (4.5-6.0) x10^6/uL Hgb (14.0-18.0) g/dL Hct (40.0-52.0) % MCV (78.0-93.0) fL MCH (26.0-32.0) pg MCHC (32.0-36.0) g/dL RDW Coeff of Lety (10.0-15.0) % Plt Count (130-400) x10^3/uL Add Manual Diff Neutrophils % (Manual) (50-80) % Band Neutrophils % (0-6) % Lymphocytes % (Manual) (25-50) % Monocytes % (Manual) (2-11) % Vacuolated Monocytes Toxic Granulation Platelet Estimate Giant Platelets Macrocytosis Target Cells Ovalocytes Stomatocytes Sodium (136-145) mmol/L Potassium (3.5-5.1) mmol/L Chloride (98-107) mmol/L Carbon Dioxide (21-32) mmol/L BUN (7-18) mg/dL Creatinine (0.70-1.30) mg/dL Est Cr Clr Drug Dosing Estimated GFR (MDRD) Glucose (74-106) mg/dL Lactic Acid (0.4-2.0) mmol/L Calcium (8.5-10.1) mg/dL Corrected Calcium (8.5-10.1) mg/dL Total Bilirubin (0.2-1.0) mg/dL AST (15-37) U/L ALT (16-63) U/L Alkaline Phosphatase (46-116) U/L Creatine Kinase (39-308) U/L Troponin I (<=0.056) ng/mL C-Reactive Protein (<=0.9) mg/dL NT-Pro-B Natriuret Pep (<=450) pg/mL Total Protein (6.4-8.2) g/dL Albumin (3.4-5.0) g/dL Globulin Albumin/Globulin Ratio Urine Color Yellow (YELLOW) Urine Appearance Turbid H (CLEAR) Urine pH 7.0 (5.0-8.0) Ur Specific [place] 1.015 Urine Protein Negative (NEGATIVE) mg/dL Urine Glucose (UA) Negative (NEGATIVE) mg/dL Urine Ketones Negative (NEGATIVE) mg/dL Urine Occult Blood Moderate H (NEGATIVE) Urine Nitrite Positive H (NEGATIVE) Urine Bilirubin Negative (NEGATIVE) Urine Urobilinogen 0.2 (0.2) EU/dL Ur Leukocyte Esterase Large H (NEGATIVE) Urine RBC 10-20 H (NOT SEEN) /HPF Urine WBC >100 H (NOT SEEN) /HPF Ur Squamous Epith Cells Not seen (NEGATIVE) /HPF Urine Bacteria Many H (NEGATIVE) /HPF Urine Mucus Not seen (NEGATIVE) /LPF - Radiology Interpretation Free Text/Narrative:: CXR: COPD New bibasal areas of subsegmental atelectasis greater on the right. Bilateral pneumonia should be considered See scanned report in EMR Departure - Departure Time of Disposition: 23:30 Disposition: Admitted As Inpatient 64 Condition: Fair Clinical Impression: Weakness, Chronic atrial fibrillation, COPD exacerbation Pneumonia Qualifiers: Pneumonia type: due to unspecified organism Laterality: bilateral Lung location : unspecified part of lung Qualified Code(s): J18.9 - Pneumonia, unspecified organism Chronic kidney disease Qualifiers: Chronic kidney disease stage: unspecified stage Qualified Code(s): N18.9 - Chronic kidney disease, unspecified - Discharge Information ED Communication - ED Communication Date/Time Date: 06/06/17 Time Called: 23:10 - Discussed Case With (1) Discussed Case With (1): Admitting Provider Person/s Notified (1): Jonah Diaz - Conversation Summary Admitting Provider Agreed to Patient's Admission: Yes Patient Aware of Amendments fo Care Plan: Yes - Problem List Review Problem List Initiated/Reviewed/Updated: Yes - My Orders Last 24 Hours: My Active Orders 06/06/17 20:27 EKG 12 Lead [EKG Documentation Completion] [RC] STAT 06/06/17 22:13 Chest 1V Frontal [CR] Stat - Assessment/Plan Last 24 Hours: My Active Orders 06/06/17 20:27 EKG 12 Lead [EKG Documentation Completion] [RC] STAT 06/06/17 22:13 Chest 1V Frontal [CR] Stat Assessment:: Pneumonia Weakness Elevated BNP Plan: Case discussed with Dr. Diaz. Patient will be admitted acute. Patient and family aware and agree with POC.
[2017-06-07] MEDS ORDERED: Acetaminophen 500 MG Tab PO PRN (01:01)
[2017-06-07] MEDS ORDERED: Bisacodyl 5 MG Tab PO PRN (01:01)
[2017-06-07] MEDS ORDERED: Lactulose Soln 10 GM/15 ML 30 ML UD Cup PO PRN (01:01)
[2017-06-07] MEDS ORDERED: Furosemide 20 MG/2 ML VIAL IV ONE (01:06)
[2017-06-07] MEDS ORDERED: Sodium Chloride 0.9% 10 ML Syringe FLUSH PRN (01:06)
[2017-06-07] MEDS: Levofloxacin/Dextrose 5%-Water 250 MG in Premix Bag 1 BAG IV SCH (01:52)
[2017-06-07] MEDS: Ipratropium 0.02% 0.5 MG/2.5 ML Neb Soln INH SCH ×2 (02:40→08:41)
[2017-06-07] MEDS: Omeprazole 20 MG Cap.CR PO SCH (06:46)
[2017-06-07] MEDS: Allopurinol 300 MG Tab PO SCH (06:46)
[2017-06-07] MEDS ORDERED: Allopurinol 300 MG Tab PO SCH ×2 (07:00→08:00)
[2017-06-07] MEDS ORDERED: Multivitamins with Iron/Calcium/Folic Acid/Minerals Tab PO SCH (07:00)
[2017-06-07] MEDS ORDERED: Diltiazem 180 MG Cap.CD PO SCH (07:00)
[2017-06-07] MEDS ORDERED: Tiotropium Inhaler 18 MCG Inhalation Powder Cap Kit of 5 INH SCH (07:00)
[2017-06-07] MEDS ORDERED: Formoterol/Mometasone 200-5 MCG 8.8 GM Inhaler IH SCH (07:00)
[2017-06-07] MEDS ORDERED: Magnesium Oxide 400 MG Tab PO SCH (07:00)
[2017-06-07] MEDS ORDERED: Cranberry 500 MG Cap PO SCH (07:00)
[2017-06-07] MEDS: Potassium Chloride 10 MEQ Tab.ER PO SCH (08:23)
[2017-06-07] MEDS: Cranberry 500 MG Cap PO SCH (08:23)
[2017-06-07] MEDS: Diltiazem 180 MG Cap.CD PO SCH (08:24)
[2017-06-07] MEDS: Multivitamins with Iron/Calcium/Folic Acid/Minerals Tab PO SCH (08:24)
[2017-06-07] MEDS: Magnesium Oxide 400 MG Tab PO SCH (08:25)
[2017-06-07] MEDS: Albuterol 0.083% 2.5 MG/3 ML Neb Soln NEB PRN (08:25)
[2017-06-07] MEDS: Furosemide 40 MG Tab PO SCH (10:44)
--- NOTE | 2017-06-07 13:27 | PCM.HP ---
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 He had Infectious Disease consult for recurrent UTI and decreased renal function 08/06, since then has been on prophylaxis with Macrobid, Cipro, then amoxicillin, switched to Keflex. He was hospitalized 04/30/17 with fever and lethargy, presumed UTI, after culture he was Rxd with a cephalosporin, stayed in swing bed until 05/07/17, then went back home again, where he gets Home Care visits once or twice per week and they help him manage his medications since his cognitive function is decreased a bit. On the day of admission he had done his laundry, finished it and sat down to rest and then noted that he was mildly dyspneic and extremely weak, had some lower abdominal pain also, called his son and they had the ambulance bring him to ER. Indeed he was mildly weak, BNP quite elevated, CXR shows either atelectasis or patchy lower lobe infiltrates, and again has decreased renal function, so he is admitted for adjustment of his diuretics and Rx for UTI again. Medical History: -Smoking ppd or less from '50's, quit in , est 22-25 pk-yr -Claims severe ammonia inhalation at least once on [employer] -04/27 OP Rx for pneumonia PR: Many Rxs for exacerbations of chronic bronchitis ; PEF 350 in 06/26 -12/25 bilateral pulmonary embolus, postop wound dehiscence repair07/26 Hosp for RLL pneumonia -Gout R MTP 01/27, uric acid 8.6, Rx allopurinol; recurrence 01/31, uric acid 9.6, allopurinol restarted, again 06/02, 08/01, allopurinol < 300 mg daily; uric acid 06/02 down to 4.6, Rx prednisone for recurrence -CT or US every 6 months to 1 year since 08 for a stable AAA, 4 cm -08/29 Hosp L lower lobe pneumonia, had transient acute renal failure -01/30 DX new onset atrial fibrillation; EchoKG: EF 65%, valves OK but some pulmonary HTn, 37 mm; repeat 3/13:60%, PAP 30 -04/02 Cataract surgery L aborted for bradycardic episode, surgery deferred and done 05/03 -04/04 Hosp, bronchopneumonia -05/05 Lipids: LDL 131, HDL 38, trig 250; never agreed to take a statin -06/05 Hosp for CHF, cardiomegaly, Rx Lasix; by 03/07 up to 40 mg daily -07/06 EchoKG: EF 55%, valves OK, PAP now up to 66 -07/06 MMSE , had been known to have mild cognitive decline even before this -08/06 Rx Macrobid continuously for UTI prophylaxis, D/Cd, didnt help -08/06: Infectious Disease consult; Rx prophylaxis with amoxicillin, Cipro, then 05/10 Keflex -05/10: Hosp for UTI, then Swing Bed till 05/07/17 Surgical History: -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 -02/21 removal of bladder stones at cystoscopy, Ca++ oxalate and CaPO4 -07/24 TURP for prostatic hypertrophy, benign; lithotripsy for ureteral stone about that time also -11/25 recurrence, radical cystectomy with ileal conduit urostomy; 12/25 repair of fascial dehiscence -06/29 L percutaneous nephrolithotomy, stone CaPO4 and MgPO4 -09/29 D/Cd from Oncology, completed 5 years Rx -01/30 bilateral cataract extraction -02/04 Endovascular graft insertion for a 5 cm AAA which had been followed about 7 years -04/08 Compression Fx T10, Hosp, fell on back, 05/02 had vertebroplasty Family History: -Mother age 104 -Father age 80 of heart attack -3 brothers, one killed in MVA, 2 brothers and 3 sisters living as of 04/02 -5 children Social History: Raised in [place], 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 Primary care from [facility], then [facility], then [facility], and as of 09/06 from [employer]. [facility] Home Care helps him with his medications. He wants no CPR or intubation, code level 3 out of 4. Systems Review: -Constitutional: Generally failing but wants to be at home, note DNR/DNI status -Eyes: Good result from his cataract surgery but R fogs over sometimes -ENT: Hearing OK, has upper denture and his own teeth below -Cardiac: Symptoms only as noted in his HPI: No exertional chest pain, on Coumadin for chronic atrial fib -Pulmonary: Smokes since his 20s but says he was never really up to ppd, this would be about 20 to pk-yr. 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 He uses oxygen continuously at 3L/min at home -GI: Negative except for some abdominal pain yesterday -: See HPI and Hx -Endocrine: Has had mild hypertriglyceridemia but last LDL was 131, never had diabetes -Heme: Tends to run borderline high WBCs, no anemia -Derm: No problems, had a benign BX once -Musculoskeletal: Denies arthritis trouble -Neurologic: If he turns too quickly he has to stand still for a while to get his balance; no headaches or syncopal spells, just weakness as noted in HPI -Psych: Rather prolonged grief reaction when he was but has not had to take antidepressants -Allergic: No seasonal allergies Physical Exam: -General: VS OK, afebrile; alert and seems to answer questions appropriately -Eyes: Pupils equal -ENT: TMs normal, hearing OK, edentulous above, teeth below in fair repair -Neck: No thyroid enlargement, masses, or bruit -Heart: Sounds are normal and mildly irregular; no ankle edema, weak but palpable dorsalis pedis pulses bilateral -Pulmonary: Lung sounds quite clear -Abdomen: Urostomy in RLQ, active bowel sounds and no tenderness or masses -Extremities: Knees and hips extend fully, joints appear normal -Neurologic: His dementia is not apparent on this conversation; facial muscles, movement of arms and legs normal; DTRs absent in both knees -Psych: Affect seems normal Impression: -Weakness secondary to exacerbation of recurrent UTI -CHF, mild dyspnea and lower lobe infiltrate or atelectasis, elevated BNP Problems: -Ileostomy for radical bladder resection for bladder CA, without recurrence -COPD, oxygen dependent, secondary 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 of smoking and 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 -Chronic atrial fibrillation and Hx bilateral pulmonary emboli, on Coumadin anticoagulation -Pulmonary hypertension, CHF secondary to his lung disease -Mild dementia -HX kidney stones -Hx gout, on allopurinol -S/P vertebroplasty for compression fracture T10 -S/P endovascular repair of AAA Plan: -Extra dose of 20 mg of Lasix IV on admission -In case 80 mg daily will be more effective than 40 mg BID, switched to this -IV Levaquin for now for his UTI -DNR/DNI per his request - Related Data Allergies/Adverse Reactions: Allergies Allergy/AdvReac Type Severity Reaction Status Date / Time No Known Allergies Allergy Verified 06/06/17 20:32 Home Medications: Home Meds Allopurinol [Zyloprim] 300 mg PO DAILY 09/10/14 [History] Tiotropium [Spiriva HandiHaler] 1 puff PO DAILY@0700 12/24/14 [History] Magnesium Oxide [Magnesium] 500 mg PO DAILY 01/26/16 [History] Diltiazem HCl [Cartia Xt] 180 mg PO DAILY 07/04/16 [History] Bisacodyl [Dulcolax] 5 mg PO DAILY PRN 07/07/16 [History] Docusate Sodium/Sennosides [Senna Plus] 1 tab PO BID@0700,1700 07/07/16 [History ] Albuterol [Proventil Neb Soln] 2.5 mg NEB QID PRN 09/09/16 [History] Budesonide/Formoterol [Symbicort 160-4.5 MCG] 2 puff INH BID@0700,1900 09/09/16 [History] Cranberry Extract [Cranberry] 500 mg PO DAILY 09/09/16 [History] Lactobacillus Combination No.4 [Probiotic] 1 cap PO DAILY@1100 09/09/16 [History ] Lactulose [Generlac] 30 ml PO TID PRN 09/09/16 [History] Multivitamin [Multi-Vitamin Daily] 1 each PO DAILY 09/09/16 [History] D-Mannose 1 tab PO BID@0700,1700 04/26/17 [History] Furosemide [Lasix] 40 mg PO BID@0700,199904/27/17 [History] Metoprolol Succinate [Toprol XL] 25 mg PO DAILY@199904/27/17 [History] Warfarin [Coumadin] 5 mg PO DAILY@17004/27/17 [History] Omeprazole 20 mg PO DAILY 04/30/17 [History] Potassium Chloride 10 meq PO DAILY 04/30/17 [History] Acetaminophen [Tylenol Extra Strength] 1,000 mg PO Q8H PRN #0 05/07/17 [Rx] Cephalexin [Cephalexin] 1 tab PO DAILY 06/06/17 [History] Past Medical History HEENT History: Reports: Hard of Hearing, Impaired Vision Cardiovascular History: Reports: Afib, Aneurysm, Heart Failure, High Cholesterol , Hypertension, Pulmonary Hypertension, Other (See Below) Other Cardiovascular History: AAA Respiratory History: Reports: COPD, PE, SOB Other Respiratory History: hypoxia, oxygen dependent Gastrointestinal History: Reports: Chronic Constipation Genitourinary History: Reports: Hydronephrosis, Renal Calculus, UTI, Recurrent Other Genitourinary History: kidney stones Musculoskeletal History: Reports: Gout, Other (See Below) Other Musculoskeletal History: collapsed vertebra, compression fracture of spine Neurological History: Reports: Other (See Below) Other Neuro History: mild cognitive impairment Psychiatric History: Reports: Other (See Below) Other Psychiatric History: adjustment disorder Endocrine/Metabolic History: Reports: None Hematologic History: Reports: Other (See Below) Other Hematologic History: coumadin therapy Immunologic History: Reports: None Oncologic (Cancer) History: Reports: Bladder Dermatologic History: Reports: Other (See Below) Other Dermatologic History: lymphadenopathy - Infectious Disease History Infectious Disease History: Reports: None - Past Surgical History HEENT Surgical History: Reports: Cataract Surgery Other HEENT Surgeries/Procedures: Unspecific Eye surgery Cardiovascular Surgical History: Reports: AAA Repair Other Cardiovascular Surgeries/Procedures: endoluminal aortic stent Respiratory Surgical History: Reports: None GI Surgical History: Reports: Hernia, Inguinal Other GI Surgeries/Procedures: Endoluminal Aortic Stent Male Surgical History: Reports: Cystectomy, TURP-Transurethral Resection of Prostate Other Male Surgeries/Procedures: UROSTOMY Dermatological Surgical History: Reports: None Social & Family History - Family History Family Medical History: Noncontributory Cardiac: Reports: CAD Respiratory: Reports: None GI: Reports: None : Reports: None OBGYN: Reports: None Musculoskeletal: Reports: Arthritis Neurological: Reports: None Psychiatric: Reports: None Endocrine/Metabolic: Reports: Diabetes, type II Hematologic: Reports: None Immunologic: Reports: None Oncologic: Reports: Bladder, Breast, Colon, Skin - Tobacco Use Smoking Status *Q: Former Smoker Years of Tobacco use: 5 Packs/Tins Daily: 0.5 Used Tobacco, but Quit: Yes Month/Year Tobacco Last Used: 1979 Second Hand Smoke Exposure: No - Caffeine Use Caffeine Use: Reports: Coffee - Alcohol Use Days Per Week of Alcohol Use: 0 - Recreational Drug Use Recreational Drug Use: No - Living Situation & Occupation Living situation: Reports: , Alone Occupation: Retired H&P Review of Systems - Review of Systems: Review Of Systems: See Below Exam - Exam Exam: See Below - Vital Signs Vital Signs: Last Vital Signs Temp 36.6 C 06/07/17 10:00 Pulse 76 06/07/17 10:00 Resp 20 06/07/17 10:00 BP 108/55 L 06/07/17 10:00 Pulse Ox 95 06/07/17 10:00 Weight: 101.8 kg - Patient Data Lab Results Last 24 hrs: Laboratory Results - last 24 hr 06/07/17 06/07/17 06/07/17 Range/Units 07:07 07:07 07:07 WBC 13.1 H (4.0-10.0) x10^3/uL RBC 4.01 L (4.5-6.0) x10^6/uL Hgb 13.9 L (14.0-18.0) g/dL Hct 40.3 (40.0-52.0) % MCV 100.5 H (78.0-93.0) fL MCH 34.7 H (26.0-32.0) pg MCHC 34.5 (32.0-36.0) g/dL RDW Coeff of Lety 13.5 (10.0-15.0) % Plt Count 184 (130-400) x10^3/uL Add Manual Diff Yes Neutrophils % (Manual) 53 (50-80) % Band Neutrophils % 3 (0-6) % Lymphocytes % (Manual) 29 (25-50) % Monocytes % (Manual) 15 H (2-11) % Vacuolated Monocytes Rare Toxic Granulation 1+ slight H Platelet Estimate Adequate Macrocytosis 2+ moderate H Spherocytes Rare Stomatocytes 2+ moderate H PT 22.3 H (9.8-11.8) SEC INR 2.1 (2.0-3.5) NT-Pro-B Natriuret Pep 3333 H (<=450) pg/mL Result Diagrams: 06/07/17 07:07 06/06/17 20:41 *Q Meaningful Use (ADM) - VTE *Q VTE Criteria *Q: - Stroke *Q Stroke Criteria *Q: - AMI *Q AMI Criteria *Q: Problem List Initiated/Reviewed/Updated: Yes Orders Last 24hrs: Active Orders 24 hr Category Date Time Status Patient Status [ADT] Routine ADT 06/07/17 00:58 Active Oxygen Therapy [RC] 08,20 Care 06/07/17 00:58 Active Vital Signs [RC] 02,06,10,14,18,22 Care 06/07/17 00:58 Active Weight, Daily [Height and Weight] [RC] 07 Care 06/07/17 04:47 Active Consult to Wildlife Technician [CONS] Routine Cons 06/07/17 04:27 Active PT Evaluation and Treatment [CONS] Routine Cons 06/07/17 04:29 Active 2 Gram Sodium Diet [DIET] Diet 06/07/17 Breakfast Active Acetaminophen [Tylenol Extra Strength] Med 06/07/17 01:01 Active 1,000 mg PO Q8H PRN Albuterol [Proventil Neb Soln] Med 06/07/17 01:01 Active 2.5 mg NEB QID PRN Allopurinol [Zyloprim] Med 06/07/17 07:00 Active 300 mg PO DAILY@0700 Bisacodyl [Dulcolax] Med 06/07/17 01:01 Active 5 mg PO DAILY PRN Cranberry Med 06/07/17 08:00 Active 500 mg PO DAILY Diltiazem [Cardizem CD] Med 06/07/17 08:00 Active 180 mg PO DAILY Docusate Sodium/Sennosides [Senna Plus] Med 06/07/17 07:00 Active 1 tab PO BID@0700,1700 Furosemide [Lasix] Med 06/07/17 10:30 Active 80 mg PO DAILY Lactulose [Cephulac] Med 06/07/17 01:01 Active 10 gm PO TID PRN Levofloxacin/Dextrose 5%-Water [Levaquin in D5W 250 MG/ Med 06/07/17 01:00 Active 50 ML] 250 mg Premix Bag 1 bag IV Q24H Magnesium Oxide Med 06/07/17 08:00 Active 400 mg PO DAILY Metoprolol Succinate [Toprol XL] Med 06/07/17 20:00 Active 25 mg PO DAILY@1999 Multivitamins w-Iron/Ca/FA/Min [Thera M Plus] Med 06/07/17 08:00 Active 1 tab PO DAILY Omeprazole Med 06/07/17 07:00 Active 20 mg PO ACBREAKFAST Patient's Own Medication [Ptom] Med 06/07/17 20:00 Active 0 each INH BID Patient's Own Medication [Ptom] Med 06/08/17 08:00 Active 0 each INH DAILY Potassium Chloride [Klor-Con 10] Med 06/07/17 08:00 Active 10 meq PO DAILY Sodium Chloride 0.9% [Saline Flush] Med 06/07/17 01:06 Active 10 ml FLUSH ASDIRECTED PRN Warfarin [Coumadin] Med 06/07/17 20:00 Active 5 mg PO DAILY@1999 Saline Lock Insert [OM.PC] Routine Oth 06/07/17 01:06 Ordered Resuscitation Status Routine Resus Stat 06/07/17 00:58 Ordered Medication Orders Acetaminophen (Tylenol Extra Strength) 1,000 mg PO Q8H PRN PRN Reason: Pain Albuterol (Proventil Neb Soln) 2.5 mg NEB QID PRN PRN Reason: Cough Last Admin: 06/07/17 08:25 Dose: 2.5 mg Allopurinol (Zyloprim) 300 mg PO DAILY@0700 [facility] Last Admin: 06/07/17 06:46 Dose: 300 mg Bisacodyl (Dulcolax) 5 mg PO DAILY PRN PRN Reason: Constipation Cranberry (Cranberry) 500 mg PO DAILY [facility] Last Admin: 06/07/17 08:23 Dose: 500 mg Diltiazem HCl (Cardizem Cd) 180 mg PO DAILY [facility] Last Admin: 06/07/17 08:24 Dose: 180 mg Furosemide (Lasix) 80 mg PO DAILY [facility] Last Admin: 06/07/17 10:44 Dose: 80 mg Levofloxacin/Dextrose 250 mg/ (Premix) 50 mls @ 50 mls/hr IV Q24H [facility] Last Admin: 06/07/17 01:52 Dose: 50 mls/hr Lactulose (Cephulac) 10 gm PO TID PRN PRN Reason: Constipation Magnesium Oxide (Magnesium Oxide) 400 mg PO DAILY [facility] Last Admin: 06/07/17 08:25 Dose: 400 mg Metoprolol Succinate (Toprol Xl) 25 mg PO DAILY@1999 [facility] Multivitamins/Minerals (Thera M Plus) 1 tab PO DAILY [facility] Last Admin: 06/07/17 08:24 Dose: 1 tab Omeprazole (Omeprazole) 20 mg PO ACBREAKFAST [facility] Last Admin: 06/07/17 06:46 Dose: 20 mg Symbicort 160/4.5 (Inhaler*Pt Ownmed*) 0 each INH BID [facility] Tiotroium 18 Mcg Cap (*Pt Own Med*) 0 each INH DAILY [facility] Potassium Chloride (Klor-Con 10) 10 meq PO DAILY [facility] Last Admin: 06/07/17 08:23 Dose: 10 meq Senna/Docusate Sodium (Senna Plus) 1 tab PO BID@0700,1700 [facility] Last Admin: 06/07/17 06:46 Dose: 1 tab Sodium Chloride (Saline Flush) 10 ml FLUSH ASDIRECTED PRN PRN Reason: Keep Vein Open Warfarin Sodium (Coumadin) 5 mg PO DAILY@1999 [facility]
[2017-06-07] MEDS: Metoprolol Succinate 25 MG Tab.ER PO SCH (19:57)
[2017-06-07] MEDS: [UNRECOGNIZED DRUG - OTHER] INH SCH (19:58)
[2017-06-07] MEDS: SYMBICORT INH SCH (19:58)
[2017-06-07] MEDS: Warfarin 5 MG Tab PO SCH (19:59)
[2017-06-08] MEDS: Levofloxacin/Dextrose 5%-Water 250 MG in Premix Bag 1 BAG IV SCH (00:40)
[2017-06-08] MEDS: Omeprazole 20 MG Cap.CR PO SCH (06:30)
[2017-06-08] MEDS: Allopurinol 300 MG Tab PO SCH (06:30)
[2017-06-08] MEDS: Multivitamins with Iron/Calcium/Folic Acid/Minerals Tab PO SCH (07:37)
[2017-06-08] MEDS: Cranberry 500 MG Cap PO SCH (07:37)
[2017-06-08] MEDS: Potassium Chloride 10 MEQ Tab.ER PO SCH (07:37)
[2017-06-08] MEDS: Magnesium Oxide 400 MG Tab PO SCH (07:37)
[2017-06-08] MEDS: Diltiazem 180 MG Cap.CD PO SCH (07:38)
[2017-06-08] MEDS: Furosemide 40 MG Tab PO SCH (07:39)
[2017-06-08] MEDS: TIOTROPIUM 18 MCG INH SCH (07:40)
[2017-06-08] MEDS: [UNRECOGNIZED DRUG - OTHER] INH SCH ×2 (07:40→20:15)
[2017-06-08] MEDS: SYMBICORT INH SCH ×2 (07:40→20:15)
--- NOTE | 2017-06-08 08:50 | PCM.PN ---
- General Info Date of Service: 06/08/17 Subjective Update: Patient is feeling some better today. He remains weak but is improved from admission. He is still coughing and this is about the same as his usual. No shortness of breath above baseline. No fever or chills since admission. - Review of Systems General: Reports: No Symptoms HEENT: Reports: No Symptoms Pulmonary: Reports: Cough, Sputum. Denies: Shortness of Breath Cardiovascular: Reports: No Symptoms Gastrointestinal: Reports: No Symptoms Genitourinary: Reports: No Symptoms Musculoskeletal: Reports: No Symptoms Skin: Reports: No Symptoms - Patient Data Vitals - Most Recent: Last Vital Signs Temp 36.7 C 06/08/17 06:00 Pulse 75 06/08/17 06:00 Resp 18 06/08/17 06:00 BP 102/53 L 06/08/17 06:00 Pulse Ox 94 L 06/08/17 07:32 Weight - Most Recent: 101.423 kg I&O - Last 24 Hours: Intake & Output 06/07/17 06/08/17 06/08/17 22:59 06:59 14:59 Intake Total 1620 720 520 Output Total 500 2850 Balance 1120 -2130 520 Lab Results Last 24 Hours: Laboratory Results - last 24 hr 06/08/17 Range/Units 06:05 Sodium 139 (136-145) mmol/L Potassium 4.1 (3.5-5.1) mmol/L Chloride 104 (98-107) mmol/L Carbon Dioxide 31 (21-32) mmol/L BUN 33 H (7-18) mg/dL Creatinine 1.6 H (0.70-1.30) mg/dL Est Cr Clr Drug Dosing 37.72 mL/min Estimated GFR (MDRD) 41 Glucose 98 (74-106) mg/dL Calcium 8.9 (8.5-10.1) mg/dL NT-Pro-B Natriuret Pep 1950 H (<=450) pg/mL Med Orders - Current: Current Medications Acetaminophen (Tylenol Extra Strength) 1,000 mg PO Q8H PRN PRN Reason: Pain Albuterol (Proventil Neb Soln) 2.5 mg NEB QID PRN PRN Reason: Cough Last Admin: 06/07/17 08:25 Dose: 2.5 mg Allopurinol (Zyloprim) 300 mg PO DAILY@0700 [facility] Last Admin: 06/08/17 06:30 Dose: 300 mg Bisacodyl (Dulcolax) 5 mg PO DAILY PRN PRN Reason: Constipation Cranberry (Cranberry) 500 mg PO DAILY [facility] Last Admin: 06/08/17 07:37 Dose: 500 mg Diltiazem HCl (Cardizem Cd) 180 mg PO DAILY [facility] Last Admin: 06/08/17 07:38 Dose: 180 mg Furosemide (Lasix) 80 mg PO DAILY [facility] Last Admin: 06/08/17 07:39 Dose: 80 mg Levofloxacin/Dextrose 250 mg/ (Premix) 50 mls @ 50 mls/hr IV Q24H [facility] Last Admin: 06/08/17 00:40 Dose: 50 mls/hr Lactulose (Cephulac) 10 gm PO TID PRN PRN Reason: Constipation Magnesium Oxide (Magnesium Oxide) 400 mg PO DAILY [facility] Last Admin: 06/08/17 07:37 Dose: 400 mg Metoprolol Succinate (Toprol Xl) 25 mg PO DAILY@1999 [facility] Last Admin: 06/07/17 19:57 Dose: 25 mg Multivitamins/Minerals (Thera M Plus) 1 tab PO DAILY [facility] Last Admin: 06/08/17 07:37 Dose: 1 tab Omeprazole (Omeprazole) 20 mg PO ACBREAKFAST [facility] Last Admin: 06/08/17 06:30 Dose: 20 mg Symbicort 160/4.5 (Inhaler*Pt Ownmed*) 0 each INH BID [facility] Last Admin: 06/08/17 07:40 Dose: 2 each Tiotroium 18 Mcg Cap (*Pt Own Med*) 0 each INH DAILY [facility] Last Admin: 06/08/17 07:40 Dose: 1 each Potassium Chloride (Klor-Con 10) 10 meq PO DAILY [facility] Last Admin: 06/08/17 07:37 Dose: 10 meq Senna/Docusate Sodium (Senna Plus) 1 tab PO BID@0700,1700 [facility] Last Admin: 06/08/17 06:30 Dose: 1 tab Sodium Chloride (Saline Flush) 10 ml FLUSH ASDIRECTED PRN PRN Reason: Keep Vein Open Last Admin: 06/07/17 20:00 Dose: 10 ml Warfarin Sodium (Coumadin) 5 mg PO DAILY@1999 [facility] Last Admin: 06/07/17 19:59 Dose: 5 mg Discontinued Medications Allopurinol (Zyloprim) 300 mg PO DAILY@0700 [facility] Allopurinol (Zyloprim) 300 mg PO DAILY [facility] Cranberry (Cranberry) 500 mg PO DAILY@0700 [facility] Diltiazem HCl (Cardizem Cd) 180 mg PO DAILY@0700 [facility] Furosemide (Lasix) 20 mg IV ONETIME ONE Stop: 06/07/17 01:07 Last Admin: 06/07/17 01:52 Dose: 20 mg Ipratropium [place] (Atrovent) 0.5 mg INH Q6H [facility] Last Admin: 06/07/17 08:41 Dose: 0.5 mg Magnesium Oxide (Magnesium Oxide) 400 mg PO DAILY@0700 [facility] Mometasone Furoate/Formoterol Fumar (Dulera 200-5 Mcg) 0 puff IH BID@0700,1900 [facility] Last Admin: 06/07/17 12:20 Dose: Not Given Multivitamins/Minerals (Thera M Plus) 1 tab PO DAILY@0700 [facility] Tiotropium [place] (Spiriva Handihaler) mcg INH DAILY@0700 [facility] - Exam General: Alert, Oriented, Cooperative, No Acute Distress HEENT: Mucous Membr. Moist/[place] Neck: Supple, Trachea Midline, No Thyromegaly. No: Lymphadenopathy Lungs: Normal Respiratory Effort, Crackles (L>R lower lobes). No: Wheezing Cardiovascular: Regular Rate, No Murmurs, Irregular Rhythm GI/Abdominal Exam: Normal Bowel Sounds, Soft, Non-Tender, No Organomegaly, No Distention, No Mass Extremities: Normal Inspection, Non-Tender, No Pedal Edema, Normal Capillary Refill Peripheral Pulses: 2+: Radial (L), Radial (R) Skin: Warm, Dry, Intact - Problem List & Annotations (1) Weakness SNOMED Code(s): 96352400 Code(s): R53.1 - WEAKNESS Status: Acute Current Visit: Yes Annotation/ Comment:: - Likely combination of underlying comorbidities in the setting of a recurrent UTI. - He does feel some better. - Did discuss transition to assisted living and he is not interested in that at this time. He also declines to consider any swing bed after this acute hospitalization. (2) Recurrent UTI SNOMED Code(s): 665363613 Code(s): N39.0 - URINARY TRACT INFECTION, SITE NOT SPECIFIED Status: Acute Current Visit: Yes Annotation/Comment:: - U/A results difficult to interpret in the setting of an indwelling catheter. However, he did have the leukocytosis on admission as well. Although he has also had a cough, he feels this is at baseline and he is not on dosing for pneumonia; therefore, the WBC changes can be more attributable to a UTI. - Will change him over to PO levaquin today. Given this is technically complicated, should likely have at least 5 days of antibiotics. Can make final decisions on duration after lab results returned tomorrow. - He is on cephalexin half-way for prevention and is scheduled for follow-up with ID in the next month as well. (3) Chronic kidney disease SNOMED Code(s): 662119935 Code(s): N18.9 - CHRONIC KIDNEY DISEASE, UNSPECIFIED Status: Chronic Current Visit: Yes Qualifiers: Chronic kidney disease stage: stage 3 (moderate) Qualified Code(s): N18.3 - Chronic kidney disease, stage 3 (moderate) Annotation/Comment:: - His creatinine baseline is likely more around 1.6 at this point. - Had adjusted his lasix to improve this; however, that resulted in a CHF exacerbation. - Therefore, to keep his fluid load under control, will have to tolerate slightly worse renal function at this point. - Will otherwise avoid other contributing medications. (4) CHF exacerbation SNOMED Code(s): 19808693 Code(s): I50.9 - HEART FAILURE, UNSPECIFIED Status: Acute Current Visit: No Annotation/Comment:: - BNP up from admission yesterday but is back down today. - Patient did also endorse increased shortness of breath but now states he is at baseline. No ankle edema. - Exacerbation likely related to recent attempts to decrease his lasix dose. - Will transition lasix back to home dosing. (5) Chronic atrial fibrillation SNOMED Code(s): 095667964 Code(s): I48.2 - CHRONIC ATRIAL FIBRILLATION Status: Chronic Current Visit: Yes Annotation/Comment:: - Rates appropriate. - INR therapeutic yesterday. Will check again tomorrow. - Home medications continued. (6) Chronic anticoagulation SNOMED Code(s): 884635491 Code(s): Z79.01 - [employer] (CURRENT) USE OF ANTICOAGULANTS Status: Chronic Current Visit: No Annotation/Comment:: - INR therapeutic yesterday. Will recheck tomorrow. - Home warfarin dosing continued. (7) COPD (chronic obstructive pulmonary disease) SNOMED Code(s): 55335213 Code(s): J44.9 - CHRONIC OBSTRUCTIVE PULMONARY DISEASE, UNSPECIFIED Status : Chronic Current Visit: No Qualifiers: Annotation/Comment:: - Cough and shortness of breath at baseline. - Therefore, no evidence of a COPD exacerbation. - Home medications continued. (8) Chronic respiratory failure with hypoxia SNOMED Code(s): 385789730 Code(s): J96.11 - CHRONIC RESPIRATORY FAILURE WITH HYPOXIA Status: Chronic Current Visit: No Annotation/Comment:: - Home oxygen continued. - Problem List Review Problem List Initiated/Reviewed/Updated: Yes - My Orders Last 24 Hours: My Active Orders 06/08/17 08:38 C-REACTIVE PROTEIN [CHEM] Routine CBC WITH AUTO DIFF [HEME] Routine - Assessment Assessment:: 82 yo male admitted with UTI after presenting with generalized weakness. Some question of CHF exacerbation as well. Doing much better today but not ready for discharge yet. - Plan Plan:: See details under problems above. Continue levofloxacin. Will transition to PO dosing and will transition back to home lasix dosing as of tomorrow. Otherwise, home medications continued. Recheck labs in the am. Patient will remain on acute status overnight - anticipate that he will be prepared for dismissal as soon as tomorrow. No indication for VTE prophylaxis as he is therapeutic on warfarin. He is DNR/DNI.
[2017-06-08] MEDS: Warfarin 5 MG Tab PO SCH (20:14)
[2017-06-08] MEDS: Levofloxacin 250 MG Tab PO SCH (20:15)
[2017-06-08] MEDS: Metoprolol Succinate 25 MG Tab.ER PO SCH (20:16)
[2017-06-09] MEDS: Omeprazole 20 MG Cap.CR PO SCH (06:14)
[2017-06-09] MEDS: Allopurinol 300 MG Tab PO SCH (06:15)
[2017-06-09] MEDS: Albuterol 0.083% 2.5 MG/3 ML Neb Soln NEB PRN (07:17)
[2017-06-09] MEDS: Potassium Chloride 10 MEQ Tab.ER PO SCH (07:46)
[2017-06-09] MEDS: Multivitamins with Iron/Calcium/Folic Acid/Minerals Tab PO SCH (07:46)
[2017-06-09] MEDS: Cranberry 500 MG Cap PO SCH (07:46)
[2017-06-09] MEDS: Furosemide 40 MG Tab PO SCH ×2 (07:46→16:03)
[2017-06-09] MEDS: Magnesium Oxide 400 MG Tab PO SCH (07:46)
[2017-06-09] MEDS: [UNRECOGNIZED DRUG - OTHER] INH SCH ×2 (07:47→19:47)
[2017-06-09] MEDS: Diltiazem 180 MG Cap.CD PO SCH (07:47)
[2017-06-09] MEDS: SYMBICORT INH SCH ×2 (07:47→19:47)
[2017-06-09] MEDS: TIOTROPIUM 18 MCG INH SCH (07:48)
--- NOTE | 2017-06-09 09:44 | PCM.PN ---
- General Info Date of Service: 06/09/17 Subjective Update: Patient still feels weak but was able to walk around the nurses station last night. Today he states that his cough has been worse than baseline but that maybe it is slightly improved today. Shortness of breath is at baseline. No fever or chills overnight. Urine output has been good. No abdominal pain. His daughter is present on rounds and is concerned that he is not strong enough to go home; wondering about doing swing bed again. - Review of Systems General: Reports: No Symptoms HEENT: Reports: No Symptoms Pulmonary: Reports: Cough Cardiovascular: Reports: No Symptoms Gastrointestinal: Reports: No Symptoms Genitourinary: Reports: No Symptoms Musculoskeletal: Reports: No Symptoms Skin: Reports: No Symptoms Neurological: Reports: No Symptoms - Patient Data Vitals - Most Recent: Last Vital Signs Temp 36.1 C 06/09/17 05:54 Pulse 79 06/09/17 05:54 Resp 19 06/09/17 05:54 BP 122/72 06/09/17 05:54 Pulse Ox 95 06/09/17 07:20 Weight - Most Recent: 98.316 kg I&O - Last 24 Hours: Intake & Output 06/08/17 06/09/17 06/09/17 22:59 06:59 14:59 Intake Total 600 420 Output Total 1000 2900 Balance -1000 -2300 420 Lab Results Last 24 Hours: Laboratory Results - last 24 hr 06/09/17 06/09/17 06/09/17 Range/Units 06:18 06:18 06:18 WBC 10.8 H (4.0-10.0) x10^3/uL RBC 4.23 L (4.5-6.0) x10^6/uL Hgb 14.3 (14.0-18.0) g/dL Hct 43.4 (40.0-52.0) % MCV 102.6 H (78.0-93.0) fL MCH 33.8 H (26.0-32.0) pg MCHC 32.9 (32.0-36.0) g/dL RDW Coeff of Lety 13.5 (10.0-15.0) % Plt Count 219 (130-400) x10^3/uL Neut % (Auto) 58.6 (50.0-80.0) % Lymph % (Auto) 25.7 (25.0-50.0) % Wright % (Auto) 14.5 H (2.0-11.0) % Eos % (Auto) 0.9 (0.0-4.0) % Baso % (Auto) 0.3 (0.2-1.2) % PT 18.5 H (9.8-11.8) SEC INR 1.7 L (2.0-3.5) Sodium 137 (136-145) mmol/L Potassium 4.1 (3.5-5.1) mmol/L Chloride 100 (98-107) mmol/L Carbon Dioxide 28 (21-32) mmol/L BUN 30 H (7-18) mg/dL Creatinine 1.4 H (0.70-1.30) mg/dL Est Cr Clr Drug Dosing 43.11 mL/min Estimated GFR (MDRD) 48 Glucose 101 (74-106) mg/dL Calcium 9.0 (8.5-10.1) mg/dL C-Reactive Protein 7.6 H (<=0.9) mg/dL Med Orders - Current: Current Medications Acetaminophen (Tylenol Extra Strength) 1,000 mg PO Q8H PRN PRN Reason: Pain Last Admin: 06/09/17 07:49 Dose: 1,000 mg Albuterol (Proventil Neb Soln) 2.5 mg NEB QID PRN PRN Reason: Cough Last Admin: 06/09/17 07:17 Dose: 2.5 mg Allopurinol (Zyloprim) 300 mg PO DAILY@0700 [facility] Last Admin: 06/09/17 06:15 Dose: 300 mg Bisacodyl (Dulcolax) 5 mg PO DAILY PRN PRN Reason: Constipation Cranberry (Cranberry) 500 mg PO DAILY [facility] Last Admin: 06/09/17 07:46 Dose: 500 mg Diltiazem HCl (Cardizem Cd) 180 mg PO DAILY [facility] Last Admin: 06/09/17 07:47 Dose: 180 mg Furosemide (Lasix) 40 mg PO BIDDIURETIC [facility] Last Admin: 06/09/17 07:46 Dose: 40 mg Lactulose (Cephulac) 10 gm PO TID PRN PRN Reason: Constipation Last Admin: 06/09/17 07:55 Dose: 10 gm Levofloxacin (Levaquin) 250 mg PO BEDTIME [facility] Last Admin: 06/08/17 20:15 Dose: 250 mg Magnesium Oxide (Magnesium Oxide) 400 mg PO DAILY [facility] Last Admin: 06/09/17 07:46 Dose: 400 mg Metoprolol Succinate (Toprol Xl) 25 mg PO DAILY@1999 [facility] Last Admin: 06/08/17 20:16 Dose: 25 mg Multivitamins/Minerals (Thera M Plus) 1 tab PO DAILY [facility] Last Admin: 06/09/17 07:46 Dose: 1 tab Omeprazole (Omeprazole) 20 mg PO ACBREAKFAST [facility] Last Admin: 06/09/17 06:14 Dose: 20 mg Symbicort 160/4.5 (Inhaler*Pt Ownmed*) 0 each INH BID [facility] Last Admin: 06/09/17 07:47 Dose: 1 each Tiotroium 18 Mcg Cap (*Pt Own Med*) 0 each INH DAILY [facility] Last Admin: 06/09/17 07:48 Dose: 1 each Potassium Chloride (Klor-Con 10) 10 meq PO DAILY [facility] Last Admin: 06/09/17 07:46 Dose: 10 meq Prednisone (Prednisone) 40 mg PO WITHBREAKFAST [facility] Senna/Docusate Sodium (Senna Plus) 1 tab PO BID@0700,1700 [facility] Last Admin: 06/09/17 06:14 Dose: 1 tab Sodium Chloride (Saline Flush) 10 ml FLUSH ASDIRECTED PRN PRN Reason: Keep Vein Open Last Admin: 06/07/17 20:00 Dose: 10 ml Warfarin Sodium (Coumadin) 5 mg PO DAILY@1999 [facility] Last Admin: 06/08/17 20:14 Dose: 5 mg Discontinued Medications Allopurinol (Zyloprim) 300 mg PO DAILY@0700 [facility] Allopurinol (Zyloprim) 300 mg PO DAILY [facility] Cranberry (Cranberry) 500 mg PO DAILY@0700 [facility] Diltiazem HCl (Cardizem Cd) 180 mg PO DAILY@0700 [facility] Furosemide (Lasix) 20 mg IV ONETIME ONE Stop: 06/07/17 01:07 Last Admin: 06/07/17 01:52 Dose: 20 mg Furosemide (Lasix) 80 mg PO DAILY [facility] Last Admin: 06/08/17 07:39 Dose: 80 mg Levofloxacin/Dextrose 250 mg/ (Premix) 50 mls @ 50 mls/hr IV Q24H [facility] Last Admin: 06/08/17 00:40 Dose: 50 mls/hr Ipratropium [place] (Atrovent) 0.5 mg INH Q6H [facility] Last Admin: 06/07/17 08:41 Dose: 0.5 mg Magnesium Oxide (Magnesium Oxide) 400 mg PO DAILY@0700 [facility] Mometasone Furoate/Formoterol Fumar (Dulera 200-5 Mcg) 0 puff IH BID@0700,1900 [facility] Last Admin: 06/07/17 12:20 Dose: Not Given Multivitamins/Minerals (Thera M Plus) 1 tab PO DAILY@0700 [facility] Tiotropium [place] (Spiriva Handihaler) mcg INH DAILY@0700 [facility] - Exam General: Alert, Cooperative, No Acute Distress HEENT: Mucous Membr. Moist/[place] Neck: Supple, Trachea Midline, No Thyromegaly. No: Lymphadenopathy Lungs: Clear to Auscultation, Normal Respiratory Effort Cardiovascular: Regular Rate, No Murmurs, Irregular Rhythm GI/Abdominal Exam: Normal Bowel Sounds, Soft, Non-Tender, No Organomegaly, No Distention, No Mass Extremities: Normal Inspection, Non-Tender, No Pedal Edema, Normal Capillary Refill Peripheral Pulses: 2+: Radial (L), Radial (R) Skin: Warm, Dry, Intact - Problem List & Annotations (1) COPD (chronic obstructive pulmonary disease) SNOMED Code(s): 42950005 Code(s): J44.9 - CHRONIC OBSTRUCTIVE PULMONARY DISEASE, UNSPECIFIED Status : Acute Current Visit: No Qualifiers: COPD type: COPD with acute exacerbation Qualified Code(s): J44.1 - Chronic obstructive pulmonary disease with (acute) exacerbation Annotation/Comment:: - Now questioning whether this is more lungs than UTI this time. - Has increased cough, which is also more productive but shortness of breath is at baseline. - Suspect he would benefit from a prednisone burst. He agrees to give this a try. Will start 40 mg daily. - His WBC have overall been downtrending (note slight increase today) but CRP is downtrending; therefore, would not change his antibiotics at this time unless x-ray shows something different. - Will repeat a CXR today to assess for any changes in the LLL. - Home medications continued. (2) Weakness SNOMED Code(s): 12144639 Code(s): R53.1 - WEAKNESS Status: Acute Current Visit: Yes Annotation/ Comment:: - Likely combination of underlying comorbidities in the setting of recurrent UTI and presumed COPD exacerbation. - He does feel some better but likely is not prepared for dismissal home. - Today he is willing to reconsider swing bed. Will have PT evaluate today to see if he would qualify for this. - Otherwise, could consider the transitional unit at [facility]. (3) Recurrent UTI SNOMED Code(s): 273799062 Code(s): N39.0 - URINARY TRACT INFECTION, SITE NOT SPECIFIED Status: Acute Current Visit: Yes Annotation/Comment:: - Patient seems to be improving. - Continue PO levaquin to complete a 5 day course. - He is on cephalexin correction for prevention and is scheduled for follow-up with ID in the next month as well. (4) Chronic kidney disease SNOMED Code(s): 806276514 Code(s): N18.9 - CHRONIC KIDNEY DISEASE, UNSPECIFIED Status: Chronic Current Visit: Yes Qualifiers: Chronic kidney disease stage: stage 3 (moderate) Qualified Code(s): N18.3 - Chronic kidney disease, stage 3 (moderate) Annotation/Comment:: - Creatinine down to 1.4 today, which is his baseline. - No further intervention at this time. (5) CHF exacerbation SNOMED Code(s): 50015788 Code(s): I50.9 - HEART FAILURE, UNSPECIFIED Status: Acute Current Visit: No Annotation/Comment:: - BNP down yesterday. - He has tolerated the decrease of lasix back to home dosing without any issues. (6) Chronic atrial fibrillation SNOMED Code(s): 556724468 Code(s): I48.2 - CHRONIC ATRIAL FIBRILLATION Status: Chronic Current Visit: Yes Annotation/Comment:: - Rates appropriate. - INR down a bit to 1.7 today. No change to warfarin dosing today. - Will check again tomorrow. (7) Chronic anticoagulation SNOMED Code(s): 956178598 Code(s): Z79.01 - PRISON (CURRENT) USE OF ANTICOAGULANTS Status: Chronic Current Visit: No Annotation/Comment:: - INR subtherapeutic today. Will recheck tomorrow. - Home warfarin dosing continued. (8) Chronic respiratory failure with hypoxia SNOMED Code(s): 294247156 Code(s): J96.11 - CHRONIC RESPIRATORY FAILURE WITH HYPOXIA Status: Chronic Current Visit: No Annotation/Comment:: - Home oxygen continued. - Problem List Review Problem List Initiated/Reviewed/Updated: Yes - My Orders Last 24 Hours: My Active Orders 06/08/17 20:00 Levofloxacin [Levaquin] 250 mg PO BEDTIME 06/09/17 08:00 Furosemide [Lasix] 40 mg PO BIDDIURETIC 06/09/17 09:28 Chest 2V [CR] Routine 06/09/17 09:29 predniSONE 40 mg PO WITHBREAKFAST - Assessment Assessment:: 82 yo male admitted with UTI after presenting with generalized weakness. Some question of CHF exacerbation as well. Patient description of recent symptoms now consistent with COPD exacerbation as well. Patient continues to feel better but remains quite weak. - Plan Plan:: See details under problems above. Continue levofloxacin. Will continue UTI dosing for now. CXR will be done today to follow-up on previously noted infiltrate. If worsening, will increase to CAP dose of levofloxacin. Will add prednisone today for COPD exacerbation. Otherwise, home medications continued. Recheck labs in the am. Recommend staying for 1 more night as his evaluation and treatment are changing today. Discussed again consideration for swing bed and he is open to that today. PT will assess. Otherwise, case management will also meet with the patient to determine next steps in order to keep him stronger and out of the hospital. No indication for VTE prophylaxis as he is therapeutic on warfarin. He is DNR/DNI.
[2017-06-09] MEDS: predniSONE 20 MG Tab PO SCH (11:03)
--- NOTE | 2017-06-09 13:31 | PCM.SN ---
- Free Text/Narrative Note: CXR looks better to me than previous. Formal radiology read is pending. Will not adjust antibiotic dose at this time but will follow for improvement with prednisone.
[2017-06-09] MEDS: Levofloxacin 250 MG Tab PO SCH (19:47)
[2017-06-09] MEDS: Warfarin 5 MG Tab PO SCH (19:47)
[2017-06-09] MEDS: Metoprolol Succinate 25 MG Tab.ER PO SCH (19:47)
[2017-06-10 05:27] VITALS: BP 104/65
[2017-06-10] MEDS: Allopurinol 300 MG Tab PO SCH (06:07)
[2017-06-10] MEDS: Omeprazole 20 MG Cap.CR PO SCH (06:07)
[2017-06-10] MEDS: Albuterol 0.083% 2.5 MG/3 ML Neb Soln NEB PRN (07:27)
[2017-06-10] MEDS: Potassium Chloride 10 MEQ Tab.ER PO SCH (07:59)
[2017-06-10] MEDS: Diltiazem 180 MG Cap.CD PO SCH (07:59)
[2017-06-10] MEDS: Cranberry 500 MG Cap PO SCH (07:59)
[2017-06-10] MEDS: predniSONE 20 MG Tab PO SCH (07:59)
[2017-06-10] MEDS: Multivitamins with Iron/Calcium/Folic Acid/Minerals Tab PO SCH (08:00)
[2017-06-10] MEDS: Magnesium Oxide 400 MG Tab PO SCH (08:00)
[2017-06-10] MEDS: Furosemide 40 MG Tab PO SCH (08:00)
[2017-06-10] MEDS: [UNRECOGNIZED DRUG - OTHER] INH SCH (08:02)
[2017-06-10] MEDS: SYMBICORT INH SCH (08:02)
[2017-06-10] MEDS: TIOTROPIUM 18 MCG INH SCH (08:03)
--- NOTE | 2017-06-10 08:36 | PCM.DCSUM1 ---
Discharge Summary - Hospital Course Brief History: Mr. Aragon is an 82 yo male who was admitted with UTI, CHF exacerbation, and COPD exacerbation after presenting with generalized weakness. - Discharge Data Discharge Date: 06/10/17 Discharge Disposition: DC/Tfer W/I Hosp To Swing 61 Condition: Good - Discharge Diagnosis/Problem(s) (1) COPD (chronic obstructive pulmonary disease) SNOMED Code(s): 22212223 ICD Code: J44.9 - CHRONIC OBSTRUCTIVE PULMONARY DISEASE, UNSPECIFIED Status : Acute Current Visit: No Problem Details: Although his history was inconsistent, he and his daughter did endorse an increase in his chronic cough. There was some question of pneumonia but a follow-up chest x-ray showed this had resolved without any antibiotic therapy for the lungs; therefore, it is felt more to be atelectasis than any infiltrate. He was treated with prednisone and that did help somewhat with his cough. His home medications were also continued. Qualifiers: COPD type: COPD with acute exacerbation Qualified Code(s): J44.1 - Chronic obstructive pulmonary disease with (acute) exacerbation (2) Weakness SNOMED Code(s): 18483977 ICD Code: R53.1 - WEAKNESS Status: Acute Current Visit: Yes Problem Details: [place] to be a combination of underlying comorbidities in the setting of recurrent UTI and presumed COPD exacerbation. He has had some improvement but is not prepared for dismissal home. PT evaluated him yesterday and will be picking him up for swing bed so he will transition over to that status today. (3) Recurrent UTI SNOMED Code(s): 771386720 ICD Code: N39.0 - URINARY TRACT INFECTION, SITE NOT SPECIFIED Status: Acute Current Visit: Yes Problem Details: No overt symptoms of UTI with suprapubic catheter in place. He has been on levaquin and labs are improving. Will plan to do a 5 day course and then transition him back to his cephalexin for prophylaxis. He will follow-up with ID in the next month as well. (4) Chronic kidney disease SNOMED Code(s): 473909065 ICD Code: N18.9 - CHRONIC KIDNEY DISEASE, UNSPECIFIED Status: Chronic Current Visit: Yes Problem Details: - Creatinine down to 1.3 today, which is better than his baseline. - No further intervention at this time. Qualifiers: Chronic kidney disease stage: stage 3 (moderate) Qualified Code(s): N18.3 - Chronic kidney disease, stage 3 (moderate) (5) CHF exacerbation SNOMED Code(s): 91638369 ICD Code: I50.9 - HEART FAILURE, UNSPECIFIED Status: Acute Current Visit : No Problem Details: He was felt to have a CHF exacerbation based on elevated BNP and some reports of shortness of breath. He was treated with IV lasix, then higher than home doses of PO lasix, and then finally back to his home lasix dosing without any incident. (6) Chronic atrial fibrillation SNOMED Code(s): 490029005 ICD Code: I48.2 - CHRONIC ATRIAL FIBRILLATION Status: Chronic Current Visit: Yes Problem Details: Rates have been appropriate. INR down to minimum of 1.7 yesterday but is therapeutic at 2.0 today. His home warfarin dosing has been continued. Will recheck INR in 3 days. (7) Chronic anticoagulation SNOMED Code(s): 394597561 ICD Code: Z79.01 - PENITENTIARY (CURRENT) USE OF ANTICOAGULANTS Status: Chronic Current Visit: No Problem Details: INR therapeutic today. Home warfarin dosing continued. Will recheck INR in 3 days. (8) Chronic respiratory failure with hypoxia SNOMED Code(s): 869865205 ICD Code: J96.11 - CHRONIC RESPIRATORY FAILURE WITH HYPOXIA Status: Chronic Current Visit: No Problem Details: Home oxygen continued. - Patient Summary/Data Operative Procedure(s) Performed: none Complications: none Consults: Consultations 06/07/17 04:27 Consult to [employer]istline [employer]iner [CONS] Routine 06/07/17 04:29 PT Evaluation and Treatment [CONS] Routine Labs Pending at D/C: none Recommended Follow-up Testing/Procedures: INR in 3 days; CBC, BMP in 1 week Planned Operative Procedure(s) after DC: none Hospital Course: See details under problems above. Patients labs and weakness improved. However, he is not strong enough to return home independently; therefore, will transition to swing bed today. - Patient Instructions Diet: Usual Diet as Tolerated Activity: As Tolerated Showering/Bathing: May Shower - Discharge Plan Home Medications: Home Meds Allopurinol [Zyloprim] 300 mg PO DAILY 09/10/14 [History] Tiotropium [Spiriva HandiHaler] 1 puff PO DAILY@0700 12/24/14 [History] Magnesium Oxide [Magnesium] 500 mg PO DAILY 01/26/16 [History] Diltiazem HCl [Cartia Xt] 180 mg PO DAILY 07/04/16 [History] Bisacodyl [Dulcolax] 5 mg PO DAILY PRN 07/07/16 [History] Docusate Sodium/Sennosides [Senna Plus] 1 tab PO BID@0700,1700 07/07/16 [History ] Albuterol [Proventil Neb Soln] 2.5 mg NEB QID PRN 09/09/16 [History] Budesonide/Formoterol [Symbicort 160-4.5 MCG] 2 puff INH BID@0700,1900 09/09/16 [History] Cranberry Extract [Cranberry] 500 mg PO DAILY 09/09/16 [History] Lactobacillus Combination No.4 [Probiotic] 1 cap PO DAILY@1100 09/09/16 [History ] Lactulose [Generlac] 30 ml PO TID PRN 09/09/16 [History] Multivitamin [Multi-Vitamin Daily] 1 each PO DAILY 09/09/16 [History] D-Mannose 1 tab PO BID@0700,1700 04/26/17 [History] Furosemide [Lasix] 40 mg PO BID@0700,199904/27/17 [History] Metoprolol Succinate [Toprol XL] 25 mg PO DAILY@199904/27/17 [History] Warfarin [Coumadin] 5 mg PO DAILY@1700 04/27/17 [History] Omeprazole 20 mg PO DAILY 04/30/17 [History] Potassium Chloride 10 meq PO DAILY 04/30/17 [History] Acetaminophen [Tylenol Extra Strength] 1,000 mg PO Q8H PRN #0 05/07/17 [Rx] Cephalexin [Cephalexin] 1 tab PO DAILY 06/06/17 [History] Levofloxacin [Levaquin] 250 mg PO BEDTIME tablet 06/10/17 [Rx] Patient's Own Medication [Ptom] 0 each INH BID each 06/10/17 [Rx] Patient's Own Medication [Ptom] 0 each INH DAILY each 06/10/17 [Rx] Prednisone [IJD: predniSONE] 40 mg PO WITHBREAKFAST tablet 06/10/17 [Rx] - Discharge Summary/Plan Comment DC Time >30 min.: No - General Info Date of Service: 06/10/17 Subjective Update: Patient feels "ok" today. Weakness is some improved but he is not strong enough to return home yet. Cough is less often but still persistent when it does occur. Shortness of breath at baseline. No fever or chills. - Review of Systems General: Reports: No Symptoms HEENT: Reports: No Symptoms Pulmonary: Reports: Cough Cardiovascular: Reports: No Symptoms Gastrointestinal: Reports: No Symptoms Genitourinary: Reports: No Symptoms Musculoskeletal: Reports: No Symptoms Skin: Reports: No Symptoms Neurological: Reports: No Symptoms - Patient Data Vitals - Most Recent: Last Vital Signs Temp 36.9 C 06/10/17 05:25 Pulse 68 06/10/17 05:25 Resp 18 06/10/17 05:25 BP 104/65 06/10/17 05:25 Pulse Ox 95 06/10/17 07:28 Weight - Most Recent: 98.435 kg I&O - Last 24 hours: Intake & Output 06/09/17 06/10/17 06/10/17 22:59 06:59 14:59 Intake Total 920 480 510 Output Total 1375 2550 Balance -455 -2070 510 Lab Results - Last 24 hrs: Laboratory Results - last 24 hr 06/10/17 06/10/17 06/10/17 Range/Units 07:10 07:10 07:10 WBC 10.4 H (4.0-10.0) x10^3/uL RBC 4.21 L (4.5-6.0) x10^6/uL Hgb 14.2 (14.0-18.0) g/dL Hct 42.9 (40.0-52.0) % MCV 101.9 H (78.0-93.0) fL MCH 33.7 H (26.0-32.0) pg MCHC 33.1 (32.0-36.0) g/dL RDW Coeff of Lety 13.1 (10.0-15.0) % Plt Count 244 (130-400) x10^3/uL Add Manual Diff Yes Neutrophils % (Manual) 66 (50-80) % Band Neutrophils % 7 H (0-6) % Lymphocytes % (Manual) 24 L (25-50) % Atypical Lymphs % 2 H (0) % Monocytes % (Manual) 1 L (2-11) % Platelet Estimate Adequate PT 20.7 H (9.8-11.8) SEC INR 2.0 (2.0-3.5) Sodium 140 (136-145) mmol/L Potassium 3.8 (3.5-5.1) mmol/L Chloride 103 (98-107) mmol/L Carbon Dioxide 29 (21-32) mmol/L BUN 32 H (7-18) mg/dL Creatinine 1.3 (0.70-1.30) mg/dL Est Cr Clr Drug Dosing 46.43 mL/min Estimated GFR (MDRD) 53 Glucose 98 (74-106) mg/dL Calcium 9.2 (8.5-10.1) mg/dL C-Reactive Protein 7.3 H (<=0.9) mg/dL Med Orders - Current: Current Medications Acetaminophen (Tylenol Extra Strength) 1,000 mg PO Q8H PRN PRN Reason: Pain Last Admin: 06/09/17 07:49 Dose: 1,000 mg Albuterol (Proventil Neb Soln) 2.5 mg NEB QID PRN PRN Reason: Cough Last Admin: 06/10/17 07:27 Dose: 2.5 mg Allopurinol (Zyloprim) 300 mg PO DAILY@0700 [facility] Last Admin: 06/10/17 06:07 Dose: 300 mg Bisacodyl (Dulcolax) 5 mg PO DAILY PRN PRN Reason: Constipation Cranberry (Cranberry) 500 mg PO DAILY [facility] Last Admin: 06/10/17 07:59 Dose: 500 mg Diltiazem HCl (Cardizem Cd) 180 mg PO DAILY [facility] Last Admin: 06/10/17 07:59 Dose: 180 mg Furosemide (Lasix) 40 mg PO BIDDIURETIC [facility] Last Admin: 06/10/17 08:00 Dose: 40 mg Lactulose (Cephulac) 10 gm PO TID PRN PRN Reason: Constipation Last Admin: 06/09/17 07:55 Dose: 10 gm Levofloxacin (Levaquin) 250 mg PO BEDTIME [facility] Last Admin: 06/09/17 19:47 Dose: 250 mg Magnesium Oxide (Magnesium Oxide) 400 mg PO DAILY [facility] Last Admin: 06/10/17 08:00 Dose: 400 mg Metoprolol Succinate (Toprol Xl) 25 mg PO DAILY@1999 [facility] Last Admin: 06/09/17 19:47 Dose: 25 mg Multivitamins/Minerals (Thera M Plus) 1 tab PO DAILY [facility] Last Admin: 06/10/17 08:00 Dose: 1 tab Omeprazole (Omeprazole) 20 mg PO ACBREAKFAST [facility] Last Admin: 06/10/17 06:07 Dose: 20 mg Symbicort 160/4.5 (Inhaler*Pt Ownmed*) 0 each INH BID [facility] Last Admin: 06/10/17 08:02 Dose: 1 each Tiotroium 18 Mcg Cap (*Pt Own Med*) 0 each INH DAILY [facility] Last Admin: 06/10/17 08:03 Dose: 1 each Potassium Chloride (Klor-Con 10) 10 meq PO DAILY [facility] Last Admin: 06/10/17 07:59 Dose: 10 meq Prednisone (Prednisone) 40 mg PO WITHBREAKFAST [facility] Last Admin: 06/10/17 07:59 Dose: 40 mg Senna/Docusate Sodium (Senna Plus) 1 tab PO BID@0700,1700 [facility] Last Admin: 06/10/17 06:07 Dose: 1 tab Sodium Chloride (Saline Flush) 10 ml FLUSH ASDIRECTED PRN PRN Reason: Keep Vein Open Last Admin: 06/07/17 20:00 Dose: 10 ml Warfarin Sodium (Coumadin) 5 mg PO DAILY@1999 [facility] Last Admin: 06/09/17 19:47 Dose: 5 mg Discontinued Medications Allopurinol (Zyloprim) 300 mg PO DAILY@0700 [facility] Allopurinol (Zyloprim) 300 mg PO DAILY [facility] Cranberry (Cranberry) 500 mg PO DAILY@0700 [facility] Diltiazem HCl (Cardizem Cd) 180 mg PO DAILY@0700 [facility] Furosemide (Lasix) 20 mg IV ONETIME ONE Stop: 06/07/17 01:07 Last Admin: 06/07/17 01:52 Dose: 20 mg Furosemide (Lasix) 80 mg PO DAILY [facility] Last Admin: 06/08/17 07:39 Dose: 80 mg Levofloxacin/Dextrose 250 mg/ (Premix) 50 mls @ 50 mls/hr IV Q24H [facility] Last Admin: 06/08/17 00:40 Dose: 50 mls/hr Ipratropium [place] (Atrovent) 0.5 mg INH Q6H [facility] Last Admin: 06/07/17 08:41 Dose: 0.5 mg Magnesium Oxide (Magnesium Oxide) 400 mg PO DAILY@0700 [facility] Mometasone Furoate/Formoterol Fumar (Dulera 200-5 Mcg) 0 puff IH BID@0700,1900 [facility] Last Admin: 06/07/17 12:20 Dose: Not Given Multivitamins/Minerals (Thera M Plus) 1 tab PO DAILY@0700 [facility] Tiotropium [place] (Spiriva Handihaler) mcg INH DAILY@0700 [facility] - Exam General: Reports: Alert, Cooperative, No Acute Distress HEENT: Reports: Mucous Membr. Moist/[place] Neck: Reports: Supple, Trachea Midline, No Thyromegaly. Denies: Lymphadenopathy Lungs: Reports: Normal Respiratory Effort, Rhonchi (scattered) Cardiovascular: Reports: Regular Rate, No Murmurs, Irregular Rhythm GI/Abdominal Exam: Normal Bowel Sounds, Soft, Non-Tender, No Organomegaly, No Distention, No Mass Extremities: Normal Inspection, Non-Tender, No Pedal Edema, Normal Capillary Refill Skin: Reports: Warm, Dry, Intact *Q Meaningful Use (DIS) - VTE *Q VTE Criteria *Q: - Stroke *Q Stroke Criteria *Q: - AMI *Q AMI Criteria *Q:
== END 2017-06-10 09:55 | disposition swing bed (61) | DRG 190 ==
LOC: VM.ED 20:25 → VM.MS 23:31
PROVIDERS: ADMIT Family Medicine; ATTEND Family Medicine
DX: J44.0 Chronic obstructive pulmonary disease with (acute) lower respiratory infection (principal); J18.9 Pneumonia, unspecified organism; I13.0 Hypertensive heart and chronic kidney disease with heart failure and stage 1 through stage 4 chronic kidney disease, or unspecified chronic kidney disease; J96.11 Chronic respiratory failure with hypoxia; N39.0 Urinary tract infection, site not specified; J44.1 Chronic obstructive pulmonary disease with (acute) exacerbation; I50.9 Heart failure, unspecified; I48.91 Unspecified atrial fibrillation; I10 Essential (primary) hypertension; R53.1 Weakness; E78.00 Pure hypercholesterolemia, unspecified; N18.9 Chronic kidney disease, unspecified; I27.20 Pulmonary hypertension, unspecified; G31.84 Mild cognitive impairment of uncertain or unknown etiology; I12.9 Hypertensive chronic kidney disease with stage 1 through stage 4 chronic kidney disease, or unspecified chronic kidney disease; N18.3 Chronic kidney disease, stage 3 (moderate); Z99.81 Dependence on supplemental oxygen; Z87.891 Personal history of nicotine dependence; Z79.899 Other long term (current) drug therapy; Z79.01 Long term (current) use of anticoagulants
CPT/HCPCS: 36415; 71045; 71046; 80048; 80053; 81001; 82550; 83605; 83880; 84484; 85025; 85610; 86140; 93005; 93010; 94640; 94760; 97161-GP; 97530-GP; 99284-GF-25; 99285; A9270-GY; J1940; J1956; J7050; J7620-GY

== ENCOUNTER 2017-06-10 08:55 | Inpatient (IN) | payer MEDICARE, BC ==
[2017-06-10] MEDS ORDERED: Acetaminophen 500 MG Tab PO PRN (11:57)
[2017-06-10] MEDS ORDERED: Bisacodyl 5 MG Tab PO PRN (11:57)
[2017-06-10] MEDS ORDERED: Albuterol 0.083% 2.5 MG/3 ML Neb Soln NEB PRN (11:57)
--- NOTE | 2017-06-10 13:39 | PCM.HP ---
H&P History of Present Illness - General Date of Service: 06/10/17 Admit Problem/Dx: Admission Diagnosis/Problem Admission Diagnosis/Problem Weakness Source of Information: Patient History Limitations: Reports: No Limitations - History of Present Illness Initial Comments - Free Text/Narative: Mr. Aragon is an 82 yo male who is admitted to swing bed for strengthening after an acute hospital stay. He had initially presented with generalized weakness. He also endorsed increased shortness of breath above his baseline. Based on his symptoms and labs, he was diagnosed with a UTI as well as a CHF exacerbation. He was treated with levofloxacin and additional lasix dosing, respectively. Additional history suggested he was also having a COPD exacerbation and he was started on prednisone as well. Overall, he was feeling better; however, it was not felt he was strong enough to return home independently. Therefore, physical therapy did evaluate him and felt he would benefit from swing bed for additional strengthening. The patient denies any other concerns today. - Related Data Allergies/Adverse Reactions: Allergies Allergy/AdvReac Type Severity Reaction Status Date / Time No Known Allergies Allergy Verified 06/06/17 20:32 Home Medications: Home Meds Allopurinol [Zyloprim] 300 mg PO DAILY 09/10/14 [History] Tiotropium [Spiriva HandiHaler] 1 puff PO DAILY@0700 12/24/14 [History] Magnesium Oxide [Magnesium] 500 mg PO DAILY 01/26/16 [History] Diltiazem HCl [Cartia Xt] 180 mg PO DAILY 07/04/16 [History] Bisacodyl [Dulcolax] 5 mg PO DAILY PRN 07/07/16 [History] Docusate Sodium/Sennosides [Senna Plus] 1 tab PO BID@0700,1700 07/07/16 [History ] Albuterol [Proventil Neb Soln] 2.5 mg NEB QID PRN 09/09/16 [History] Budesonide/Formoterol [Symbicort 160-4.5 MCG] 2 puff INH BID@0700,1900 09/09/16 [History] Cranberry Extract [Cranberry] 500 mg PO DAILY 09/09/16 [History] Lactobacillus Combination No.4 [Probiotic] 1 cap PO DAILY@1100 09/09/16 [History ] Lactulose [Generlac] 30 ml PO TID PRN 09/09/16 [History] Multivitamin [Multi-Vitamin Daily] 1 each PO DAILY 09/09/16 [History] D-Mannose 1 tab PO BID@0700,1700 04/26/17 [History] Furosemide [Lasix] 40 mg PO BID@0700,199904/27/17 [History] Metoprolol Succinate [Toprol XL] 25 mg PO DAILY@199904/27/17 [History] Warfarin [Coumadin] 5 mg PO DAILY@17004/27/17 [History] Omeprazole 20 mg PO DAILY 04/30/17 [History] Potassium Chloride 10 meq PO DAILY 04/30/17 [History] Acetaminophen [Tylenol Extra Strength] 1,000 mg PO Q8H PRN #0 05/07/17 [Rx] Cephalexin [Cephalexin] 1 tab PO DAILY 06/06/17 [History] Levofloxacin [Levaquin] 250 mg PO BEDTIME tablet 06/10/17 [Rx] Patient's Own Medication [Ptom] 0 each INH BID each 06/10/17 [Rx] Patient's Own Medication [Ptom] 0 each INH DAILY each 06/10/17 [Rx] Prednisone [IJD: predniSONE] 40 mg PO WITHBREAKFAST tablet 06/10/17 [Rx] Past Medical History HEENT History: Reports: Hard of Hearing, Impaired Vision Cardiovascular History: Reports: Afib, Aneurysm, Heart Failure, High Cholesterol , Hypertension, Pulmonary Hypertension, Other (See Below) Other Cardiovascular History: AAA Respiratory History: Reports: COPD, PE, SOB Other Respiratory History: hypoxia, oxygen dependent Gastrointestinal History: Reports: Chronic Constipation Genitourinary History: Reports: Hydronephrosis, Renal Calculus, UTI, Recurrent Other Genitourinary History: kidney stones Musculoskeletal History: Reports: Gout, Other (See Below) Other Musculoskeletal History: collapsed vertebra, compression fracture of spine Neurological History: Reports: Other (See Below) Other Neuro History: mild cognitive impairment Psychiatric History: Reports: Other (See Below) Other Psychiatric History: adjustment disorder Endocrine/Metabolic History: Reports: None Hematologic History: Reports: Other (See Below) Other Hematologic History: coumadin therapy Immunologic History: Reports: None Oncologic (Cancer) History: Reports: Bladder Dermatologic History: Reports: Other (See Below) Other Dermatologic History: lymphadenopathy - Infectious Disease History Infectious Disease History: Reports: None - Past Surgical History HEENT Surgical History: Reports: Cataract Surgery Other HEENT Surgeries/Procedures: Unspecific Eye surgery Cardiovascular Surgical History: Reports: AAA Repair Other Cardiovascular Surgeries/Procedures: endoluminal aortic stent Respiratory Surgical History: Reports: None GI Surgical History: Reports: Hernia, Inguinal Other GI Surgeries/Procedures: Endoluminal Aortic Stent Male Surgical History: Reports: Cystectomy, TURP-Transurethral Resection of Prostate Other Male Surgeries/Procedures: UROSTOMY Dermatological Surgical History: Reports: None Social & Family History - Family History Cardiac: Reports: CAD Respiratory: Reports: None GI: Reports: None : Reports: None OBGYN: Reports: None Musculoskeletal: Reports: Arthritis Neurological: Reports: None Psychiatric: Reports: None Endocrine/Metabolic: Reports: Diabetes, type II Hematologic: Reports: None Immunologic: Reports: None Oncologic: Reports: Bladder, Breast, Colon, Skin - Tobacco Use Smoking Status *Q: Former Smoker Years of Tobacco use: 5 Packs/Tins Daily: 0.5 Used Tobacco, but Quit: Yes Month/Year Tobacco Last Used: 1979 Second Hand Smoke Exposure: No - Caffeine Use Caffeine Use: Reports: Coffee - Alcohol Use Alcohol Use History: No Days Per Week of Alcohol Use: 0 - Recreational Drug Use Recreational Drug Use: No - Living Situation & Occupation Living situation: Reports: , Alone Occupation: Retired H&P Review of Systems - Review of Systems: Review Of Systems: See Below General: Reports: No Symptoms HEENT: Reports: No Symptoms Pulmonary: Reports: Cough. Denies: Shortness of Breath Cardiovascular: Reports: No Symptoms Gastrointestinal: Reports: No Symptoms Genitourinary: Reports: No Symptoms Musculoskeletal: Reports: No Symptoms Skin: Reports: No Symptoms Neurological: Reports: No Symptoms Exam - Exam Exam: See Below - Vital Signs Vital Signs: Last Vital Signs Temp 36.6 C 06/10/17 13:08 Pulse 72 06/10/17 13:08 Resp 16 06/10/17 13:08 BP 111/68 06/10/17 13:08 Pulse Ox 94 L 06/10/17 13:08 - Exam General: Alert, Cooperative HEENT: Conjunctiva Clear, Mucosa Moist & [place], Pupils Equal, Pupils Reactive Neck: Supple, Trachea Midline. No: Lymphadenopathy, Thyromegaly Lungs: Normal Respiratory Effort, Rhonchi (scattered bilaterally) Cardiovascular: Regular Rate, Normal S1, Normal S2, Irregular Rhythm GI/Abdominal Exam: Normal Bowel Sounds, Soft, Non-Tender, No Organomegaly, No Distention, No Mass Extremities: Normal Inspection, Non-Tender, No Pedal Edema, Normal Capillary Refill Peripheral Pulses: 2+: Radial (L), Radial (R) Skin: Warm, Dry, Intact *Q Meaningful Use (ADM) - VTE *Q VTE Criteria *Q: VTE Pharmacological Contraindications *Q: Not Candidate LT Anticoag VTE Anticoagulation Contraindications: Med/TX Not Indicated/Need - Stroke *Q Stroke Criteria *Q: - AMI *Q AMI Criteria *Q: - Problem List (1) Weakness SNOMED Code(s): 01039736 ICD Code: R53.1 - WEAKNESS Status: Acute Current Visit: No Problem Details: - Secondary to underlying comorbidities as well as acute illness as below. - PT/OT consults. - Patient is not interested in transition to assisted living. Plan is to do self pay cardiac rehab for monitored exercise after discharge from swing bed. (2) COPD (chronic obstructive pulmonary disease) SNOMED Code(s): 89220526 ICD Code: J44.9 - CHRONIC OBSTRUCTIVE PULMONARY DISEASE, UNSPECIFIED Status : Acute Current Visit: No Problem Details: - Patient diagnosed with COPD exacerbation due to increase in cough. - He will complete a 5 day prednisone burst. - Otherwise, his home medications will be continued. Qualifiers: (3) Recurrent UTI SNOMED Code(s): 629180279 ICD Code: N39.0 - URINARY TRACT INFECTION, SITE NOT SPECIFIED Status: Acute Current Visit: No Problem Details: - U/A positive on admission for acute stay. - WBC also elevated but have come down nicely. - Will plan to complete a 5 day course of levofloxacin and then transition him back to cephalexin for prophylaxis. - ID follow-up scheduled for 07/06. (4) Diastolic heart failure SNOMED Code(s): 135311446 ICD Code: I50.30 - UNSPECIFIED DIASTOLIC (CONGESTIVE) HEART FAILURE Status : Chronic Current Visit: No Problem Details: - CHF exacerbation has resolved nicely. - Continue home dose of lasix as well as other home medications. Qualifiers: (5) Chronic atrial fibrillation SNOMED Code(s): 991440981 ICD Code: I48.2 - CHRONIC ATRIAL FIBRILLATION Status: Chronic Current Visit: No Problem Details: - Rates have been appropriate. - INR therapeutic at 2.0 today. - His home warfarin dosing has been continued. - Will recheck INR in 3 days. (6) Chronic anticoagulation SNOMED Code(s): 227080399 ICD Code: Z79.01 - CIVIL MANAGER (CURRENT) USE OF ANTICOAGULANTS Status: Chronic Current Visit: No Problem Details: - INR therapeutic today. - Home warfarin dosing continued. - Will recheck INR in 3 days. (7) Chronic kidney disease SNOMED Code(s): 301838210 ICD Code: N18.9 - CHRONIC KIDNEY DISEASE, UNSPECIFIED Status: Chronic Current Visit: No Problem Details: - Creatinine down to 1.3 today, which is better than his baseline. - No further intervention at this time. - Will recheck BMP in 1 week. Qualifiers: (8) Constipation SNOMED Code(s): 05912814 ICD Code: K59.00 - CONSTIPATION, UNSPECIFIED Status: Chronic Current Visit: No Problem Details: - Well controlled at this time. - Continue home medications. (9) Gout SNOMED Code(s): 53823600 ICD Code: M10.9 - GOUT, UNSPECIFIED Status: Chronic Current Visit: No Problem Details: - No current symptoms. - Continue home medications. Qualifiers: Problem List Initiated/Reviewed/Updated: Yes Orders Last 24hrs: Active Orders 24 hr Category Date Time Status Patient Status [ADT] Routine ADT 06/10/17 09:55 Active Notify Provider Vital Signs [RC] Care 06/10/17 11:55 Active Oxygen Therapy [RC] ,20 Care 06/10/17 11:54 Active Up With Assistance [RC] ASDIRECTED Care 06/10/17 11:54 Active VTE/DVT Education [RC] .PRN Care 06/10/17 11:55 Active Vital Signs [RC] Care 06/10/17 11:55 Active 2 Gram Sodium Diet [DIET] Diet 06/10/17 Lunch Active Acetaminophen [Tylenol Extra Strength] Med 06/10/17 11:57 Active 1,000 mg PO Q8H PRN Albuterol [Proventil Neb Soln] Med 06/10/17 11:57 Active 2.5 mg NEB QID PRN Allopurinol [Zyloprim] Med 06/11/17 08:00 Active 300 mg PO DAILY Bisacodyl [Dulcolax] Med 06/10/17 11:57 Active 5 mg PO DAILY PRN Budesonide/Formoterol [Symbicort 160-4.5 MCG] Med 06/10/17 19:00 Active 2 puff INH BID@0700,1900 Cranberry Med 06/11/17 08:00 Active 500 mg PO DAILY Diltiazem [Cardizem CD] Med 06/11/17 08:00 Active 180 mg PO DAILY Docusate Sodium/Sennosides [Senna Plus] Med 06/10/17 17:00 Active 1 tab PO BID@0700,1700 Furosemide [Lasix] Med 06/10/17 16:00 Active 40 mg PO BIDDIURETIC Lactulose [Chronulac] Med 06/11/17 08:00 Active 10 gm PO TID PRN Levofloxacin [Levaquin] Med 06/10/17 20:00 Active 250 mg PO BEDTIME Magnesium Oxide Med 06/11/17 08:00 Active 400 mg PO DAILY Metoprolol Succinate [Toprol XL] Med 06/10/17 20:00 Active 25 mg PO DAILY@2000 Omeprazole Med 06/11/17 07:00 Active 20 mg PO ACBREAKFAST Potassium Chloride [Klor-Con 10] Med 06/11/17 08:00 Active 10 meq PO DAILY Tiotropium [Spiriva HandiHaler] Med 06/11/17 08:00 Active 18 mcg INH DAILY Warfarin [Coumadin] Med 06/10/17 17:00 Active 5 mg PO DAILY@1700 predniSONE Med 06/11/17 08:00 Active 40 mg PO WITHBREAKFAST Anticoagulation Contraindications VTE [AST] Per Unit Oth 06/10/17 11:54 Ordered Routine VTE Pharmacological Contraindications [AST] Per Unit Oth 06/10/17 11:54 Ordered Routine Resuscitation Status Routine Resus Stat 06/10/17 11:54 Ordered Medication Orders Acetaminophen (Tylenol Extra Strength) 1,000 mg PO Q8H PRN PRN Reason: Pain Albuterol (Proventil Neb Soln) 2.5 mg NEB QID PRN PRN Reason: Cough Allopurinol (Zyloprim) 300 mg PO DAILY NATALYA Bisacodyl (Dulcolax) 5 mg PO DAILY PRN PRN Reason: Constipation Cranberry (Cranberry) 500 mg PO DAILY NATALYA Diltiazem HCl (Cardizem Cd) 180 mg PO DAILY [facility] Furosemide (Lasix) 40 mg PO BIDDIURETIC [facility] Lactulose (Chronulac) 10 gm PO TID PRN PRN Reason: constipation Levofloxacin (Levaquin) 250 mg PO BEDTIME [facility] Stop: 06/10/17 20:01 Magnesium Oxide (Magnesium Oxide) 400 mg PO DAILY [facility] Metoprolol Succinate (Toprol Xl) 25 mg PO DAILY@1999 [facility] Budesonide/Formoterol [ Symbicort 160-4.5 Mcg] Own Med 2 puff INH BID@0700, 1900 [facility] Omeprazole (Omeprazole) 20 mg PO ACBREAKFAST [facility] Potassium Chloride (Klor-Con 10) 10 meq PO DAILY [facility] Prednisone (Prednisone) 40 mg PO WITHBREAKFAST [facility] Stop: 06/13/17 08:01 Senna/Docusate Sodium (Senna Plus) 1 tab PO BID@0700,1700 [facility] Tiotropium [place] (Spiriva Handihaler) 18 mcg INH DAILY [facility] Warfarin Sodium (Coumadin) 5 mg PO DAILY@1700 [facility] Assessment/Plan Comment:: 82 yo male admitted to swing bed for strengthening following an acute stay for UTI, CHF exacerbation, and COPD exacerbation. PT/OT consults. Complete levofloxacin and prednisone courses. Otherwise, continue home medications. Recheck INR in 3 days, CBC and BMP in 1 week. Otherwise, see details under problems above. No indication for VTE prophylaxis as he is therapeutic on warfarin. Length of stay to be determined by therapies.
[2017-06-10] MEDS: Warfarin 5 MG Tab PO SCH (17:29)
[2017-06-10] MEDS: Furosemide 40 MG Tab PO SCH (17:29)
[2017-06-10] MEDS: FORMOTEROL INH SCH (18:50)
[2017-06-10] MEDS: BUDESONIDE INH SCH (18:50)
[2017-06-10] MEDS: Metoprolol Succinate 25 MG Tab.ER PO SCH (19:47)
[2017-06-10] MEDS ORDERED: Levofloxacin 250 MG Tab PO SCH (20:00)
[2017-06-10] MEDS ORDERED: Patient's Own Medication 1 Each INH SCH (20:00)
[2017-06-11] MEDS: Omeprazole 20 MG Cap.CR PO SCH (06:18)
[2017-06-11] MEDS: BUDESONIDE INH SCH ×2 (06:18→18:24)
[2017-06-11] MEDS: FORMOTEROL INH SCH ×2 (06:18→18:24)
[2017-06-11] MEDS ORDERED: Lactulose Soln 10 GM/15 ML 15 ML UD Cup PO PRN (08:00)
[2017-06-11] MEDS: Furosemide 40 MG Tab PO SCH ×2 (09:04→16:46)
[2017-06-11] MEDS: Potassium Chloride 10 MEQ Tab.ER PO SCH (09:04)
[2017-06-11] MEDS: Cranberry 500 MG Cap PO SCH (09:04)
[2017-06-11] MEDS: Magnesium Oxide 400 MG Tab PO SCH (09:05)
[2017-06-11] MEDS: predniSONE 20 MG Tab PO SCH (09:05)
[2017-06-11] MEDS: Diltiazem 180 MG Cap.CD PO SCH (09:05)
[2017-06-11] MEDS: Allopurinol 300 MG Tab PO SCH (09:05)
[2017-06-11] MEDS: TIOTROPIUM 18 MCG INH SCH (09:06)
[2017-06-11] MEDS: Warfarin 5 MG Tab PO SCH (16:47)
[2017-06-11] MEDS: Metoprolol Succinate 25 MG Tab.ER PO SCH (20:01)
[2017-06-12] MEDS: BUDESONIDE INH SCH ×2 (06:10→17:59)
[2017-06-12] MEDS: Omeprazole 20 MG Cap.CR PO SCH (06:10)
[2017-06-12] MEDS: FORMOTEROL INH SCH ×2 (06:10→17:59)
[2017-06-12] MEDS: Diltiazem 180 MG Cap.CD PO SCH (08:02)
[2017-06-12] MEDS: Furosemide 40 MG Tab PO SCH ×2 (08:03→15:28)
[2017-06-12] MEDS: Potassium Chloride 10 MEQ Tab.ER PO SCH (08:03)
[2017-06-12] MEDS: Cranberry 500 MG Cap PO SCH (08:03)
[2017-06-12] MEDS: Magnesium Oxide 400 MG Tab PO SCH (08:04)
[2017-06-12] MEDS: predniSONE 20 MG Tab PO SCH (08:04)
[2017-06-12] MEDS: Allopurinol 300 MG Tab PO SCH (08:04)
[2017-06-12] MEDS: TIOTROPIUM 18 MCG INH SCH (08:05)
--- NOTE | 2017-06-12 14:22 | PCM.DCSUM1 ---
Discharge Summary - Hospital Course Brief History: Mr. Aragon is an 82 yo male who was admitted to swing bed for strengthening following an acute hospitalization for UTI as well as COPD and CHF exacerbations. - Discharge Data Discharge Date: 06/13/17 Discharge Disposition: Home, Self-Care 01 Condition: Good - Discharge Diagnosis/Problem(s) (1) Weakness SNOMED Code(s): 42462861 ICD Code: R53.1 - WEAKNESS Status: Acute Current Visit: No Problem Details: Weakness secondary to underlying comorbidities as well as acute illness as below. Physical therapy did evaluate the patient and worked with him. His strength improved to the point it was felt he was prepared for dismissal home. He will go with home health and then will also do self pay cardiac rehab for a monitored exercise program. (2) COPD (chronic obstructive pulmonary disease) SNOMED Code(s): 76794567 ICD Code: J44.9 - CHRONIC OBSTRUCTIVE PULMONARY DISEASE, UNSPECIFIED Status : Acute Current Visit: No Problem Details: Patient diagnosed with COPD exacerbation due to increase in cough. He completed a 5 day prednisone burst and his cough had improved. Otherwise, his home medications were continued. Qualifiers: (3) Recurrent UTI SNOMED Code(s): 779937696 ICD Code: N39.0 - URINARY TRACT INFECTION, SITE NOT SPECIFIED Status: Acute Current Visit: No Problem Details: U/A positive on admission for acute stay. WBC also elevated. He was treated with levofloxacin with improvement in symptoms and labs. He completed a 5 day course of levofloxacin during his swing bed stay. ID follow-up scheduled for 07/06. (4) Diastolic heart failure SNOMED Code(s): 536262431 ICD Code: I50.30 - UNSPECIFIED DIASTOLIC (CONGESTIVE) HEART FAILURE Status : Chronic Current Visit: No Problem Details: Had presumed CHF exacerbation on initial admission but that resolved nicely and he was back to his usual dose of lasix prior to transition to swing bed. His home medications were continued during his swing bed stay without any issues. Qualifiers: (5) Chronic atrial fibrillation SNOMED Code(s): 971996000 ICD Code: I48.2 - CHRONIC ATRIAL FIBRILLATION Status: Chronic Current Visit: No Problem Details: Rates have been appropriate. INR therapeutic at 2.0 on swing bed admission. His home warfarin dosing was continued. Anticoagulation clinic following and can determine timing of next INR check. (6) Chronic anticoagulation SNOMED Code(s): 709520746 ICD Code: Z79.01 - PENITENTIARY (CURRENT) USE OF ANTICOAGULANTS Status: Chronic Current Visit: No Problem Details: See above. (7) Chronic kidney disease SNOMED Code(s): 137537852 ICD Code: N18.9 - CHRONIC KIDNEY DISEASE, UNSPECIFIED Status: Chronic Current Visit: No Problem Details: Creatinine up to max of 1.6 but down to 1.3 prior to transition to swing bed, which is actually better than his baseline. Will recheck labs at swing bed follow-up. Qualifiers: (8) Constipation SNOMED Code(s): 57473609 ICD Code: K59.00 - CONSTIPATION, UNSPECIFIED Status: Chronic Current Visit: No Problem Details: Well controlled at this time. Home medications continued. (9) Gout SNOMED Code(s): 77150611 ICD Code: M10.9 - GOUT, UNSPECIFIED Status: Chronic Current Visit: No Problem Details: No current symptoms. Home medications continued. Qualifiers: - Patient Summary/Data Operative Procedure(s) Performed: none Complications: none Consults: Consultations 06/10/17 13:54 OT Evaluation and Treatment [CONS] Routine PT Evaluation and Treatment [CONS] Routine Labs Pending at D/C: none Recommended Follow-up Testing/Procedures: CBC, BMP at swing bed follow-up Planned Operative Procedure(s) after DC: none Hospital Course: See details under problems above. Patient had improvement in weakness back to baseline. He will be continuing with home health and then will also attend cardiac rehab. - Patient Instructions Diet: Usual Diet as Tolerated Activity: As Tolerated - Discharge Plan Home Medications: Home Meds Allopurinol [Zyloprim] 300 mg PO DAILY 09/10/14 [History] Tiotropium [Spiriva HandiHaler] 1 puff PO DAILY@0700 12/24/14 [History] Magnesium Oxide [Magnesium] 500 mg PO DAILY 01/26/16 [History] Diltiazem HCl [Cartia Xt] 180 mg PO DAILY 07/04/16 [History] Bisacodyl [Dulcolax] 5 mg PO DAILY PRN 07/07/16 [History] Docusate Sodium/Sennosides [Senna Plus] 1 tab PO BID@0700,1700 07/07/16 [History ] Albuterol [Proventil Neb Soln] 2.5 mg NEB QID PRN 09/09/16 [History] Budesonide/Formoterol [Symbicort 160-4.5 MCG] 2 puff INH BID@0700,1900 09/09/16 [History] Cranberry Extract [Cranberry] 500 mg PO DAILY 09/09/16 [History] Lactobacillus Combination No.4 [Probiotic] 1 cap PO DAILY@1100 09/09/16 [History ] Lactulose [Generlac] 30 ml PO TID PRN 09/09/16 [History] Multivitamin [Multi-Vitamin Daily] 1 each PO DAILY 09/09/16 [History] D-Mannose 1 tab PO BID@0700,1700 04/26/17 [History] Furosemide [Lasix] 40 mg PO BID@0700,199904/27/17 [History] Metoprolol Succinate [Toprol XL] 25 mg PO DAILY@199904/27/17 [History] Warfarin [Coumadin] 5 mg PO DAILY@17004/27/17 [History] Omeprazole 20 mg PO DAILY 04/30/17 [History] Potassium Chloride 10 meq PO DAILY 04/30/17 [History] Acetaminophen [Tylenol Extra Strength] 1,000 mg PO Q8H PRN #0 05/07/17 [Rx] Cephalexin 1 tab PO DAILY 06/06/17 [History] Patient's Own Medication [Ptom] 0 each INH BID each 06/10/17 [Rx] Referrals: Larisa Ellsworth MD [Primary Care Provider] - 07/03/17 - Discharge Summary/Plan Comment DC Time >30 min.: No - General Info Date of Service: 06/12/17 Subjective Update: Feeling well today other than ongoing weakness. Cough has improved. Breathing remains at baseline; no chest pain. No fever or chills. No other symptoms. - Review of Systems General: Reports: No Symptoms HEENT: Reports: No Symptoms Pulmonary: Reports: No Symptoms Cardiovascular: Reports: No Symptoms Gastrointestinal: Reports: No Symptoms Genitourinary: Reports: No Symptoms Musculoskeletal: Reports: No Symptoms Skin: Reports: No Symptoms Neurological: Reports: No Symptoms - Patient Data Vitals - Most Recent: Last Vital Signs Temp 36.0 C 06/12/17 08:30 Pulse 96 06/12/17 08:30 Resp 19 06/12/17 08:30 BP 133/62 06/12/17 08:30 Pulse Ox 94 L 06/12/17 08:30 Weight - Most Recent: 97.539 kg I&O - Last 24 hours: Intake & Output 06/11/17 06/12/17 06/12/17 22:59 06:59 14:59 Intake Total 540 650 Output Total 325 2000 600 Balance 215 -1350 -600 Med Orders - Current: Current Medications Acetaminophen (Tylenol Extra Strength) 1,000 mg PO Q8H PRN PRN Reason: Pain Albuterol (Proventil Neb Soln) 2.5 mg NEB QID PRN PRN Reason: Cough Last Admin: 06/12/17 07:10 Dose: 2.5 mg Allopurinol (Zyloprim) 300 mg PO DAILY [facility] Last Admin: 06/12/17 08:04 Dose: 300 mg Bisacodyl (Dulcolax) 5 mg PO DAILY PRN PRN Reason: Constipation Last Admin: 06/12/17 08:58 Dose: 5 mg Cranberry (Cranberry) 500 mg PO DAILY [facility] Last Admin: 06/12/17 08:03 Dose: 500 mg Diltiazem HCl (Cardizem Cd) 180 mg PO DAILY [facility] Last Admin: 06/12/17 08:02 Dose: 180 mg Furosemide (Lasix) 40 mg PO BIDDIURETIC [facility] Last Admin: 06/12/17 08:03 Dose: 40 mg Lactulose (Chronulac) 10 gm PO TID PRN PRN Reason: constipation Magnesium Oxide (Magnesium Oxide) 400 mg PO DAILY [facility] Last Admin: 06/12/17 08:04 Dose: 400 mg Metoprolol Succinate (Toprol Xl) 25 mg PO DAILY@1999 [facility] Last Admin: 06/11/17 20:01 Dose: 25 mg Budesonide/Formoterol [ Symbicort 160-4.5 Mcg] Own Med 2 puff INH BID@0700, 1900 [facility] Last Admin: 06/12/17 06:10 Dose: 2 puff Omeprazole (Omeprazole) 20 mg PO ACBREAKFAST [facility] Last Admin: 06/12/17 06:10 Dose: 20 mg Potassium Chloride (Klor-Con 10) 10 meq PO DAILY [facility] Last Admin: 06/12/17 08:03 Dose: 10 meq Prednisone (Prednisone) 40 mg PO WITHBREAKFAST [facility] Stop: 06/13/17 08:01 Last Admin: 06/12/17 08:04 Dose: 40 mg Senna/Docusate Sodium (Senna Plus) 1 tab PO BID@0700,1700 [facility] Last Admin: 06/12/17 06:10 Dose: 1 tab Tiotropium [place] (Spiriva Handihaler) 18 mcg INH DAILY [facility] Last Admin: 06/12/17 08:05 Dose: 1 inhalation Warfarin Sodium (Coumadin) 5 mg PO DAILY@1700 [facility] Last Admin: 06/11/17 16:47 Dose: 5 mg Discontinued Medications Levofloxacin (Levaquin) 250 mg PO BEDTIME [facility] Stop: 06/10/17 20:01 Last Admin: 06/10/17 19:47 Dose: 250 mg Patient Own Medication (Ptom) 1 each INH BID [facility] - Exam General: Reports: Alert, Cooperative, No Acute Distress HEENT: Reports: Mucous Membr. Moist/[place] Neck: Reports: Supple, Trachea Midline, No Thyromegaly. Denies: Lymphadenopathy Lungs: Reports: Clear to Auscultation, Normal Respiratory Effort Cardiovascular: Reports: Regular Rate, No Murmurs, Irregular Rhythm GI/Abdominal Exam: Normal Bowel Sounds, Soft, Non-Tender, No Organomegaly, No Distention, No Mass Extremities: Normal Inspection, Non-Tender, No Pedal Edema, Normal Capillary Refill Skin: Reports: Warm, Dry, Intact *Q Meaningful Use (DIS) - VTE *Q VTE Criteria *Q: VTE Pharmacological Contraindications *Q: Not Candidate LT Anticoag VTE Anticoagulation Contraindications: Med/TX Not Indicated/Need - Stroke *Q Stroke Criteria *Q: - AMI *Q AMI Criteria *Q:
[2017-06-12] MEDS: Warfarin 5 MG Tab PO SCH (16:26)
[2017-06-12] MEDS: Metoprolol Succinate 25 MG Tab.ER PO SCH (20:10)
[2017-06-13 05:40] VITALS: BP 110/59
[2017-06-13] MEDS: FORMOTEROL INH SCH (06:43)
[2017-06-13] MEDS: BUDESONIDE INH SCH (06:43)
[2017-06-13] MEDS: Omeprazole 20 MG Cap.CR PO SCH (06:44)
[2017-06-13] MEDS: Cranberry 500 MG Cap PO SCH (08:08)
[2017-06-13] MEDS: Potassium Chloride 10 MEQ Tab.ER PO SCH (08:08)
[2017-06-13] MEDS: Diltiazem 180 MG Cap.CD PO SCH (08:08)
[2017-06-13] MEDS: Furosemide 40 MG Tab PO SCH (08:08)
[2017-06-13] MEDS: Allopurinol 300 MG Tab PO SCH (08:08)
[2017-06-13] MEDS: Magnesium Oxide 400 MG Tab PO SCH (08:08)
[2017-06-13] MEDS: predniSONE 20 MG Tab PO SCH (08:09)
[2017-06-13] MEDS: TIOTROPIUM 18 MCG INH SCH (08:10)
== END 2017-06-13 10:15 | disposition home or self-care (01) | DRG 948 ==
LOC: VM.MS 09:55
PROVIDERS: ADMIT Family Medicine; ATTEND Family Medicine
DX: R53.1 Weakness (principal); N39.0 Urinary tract infection, site not specified; I50.30 Unspecified diastolic (congestive) heart failure; J44.9 Chronic obstructive pulmonary disease, unspecified; I48.2 Chronic atrial fibrillation; Z79.01 Long term (current) use of anticoagulants; N18.9 Chronic kidney disease, unspecified; K59.00 Constipation, unspecified; M10.9 Gout, unspecified; H91.90 Unspecified hearing loss, unspecified ear; H54.7 Unspecified visual loss; E78.00 Pure hypercholesterolemia, unspecified; I71.4 Abdominal aortic aneurysm, without rupture; Z86.711 Personal history of pulmonary embolism; Z09 Encounter for follow-up examination after completed treatment for conditions other than malignant neoplasm; Z85.51 Personal history of malignant neoplasm of bladder; Z87.891 Personal history of nicotine dependence; Z79.899 Other long term (current) drug therapy
CPT/HCPCS: 94640; 94760; 97110-GP; 97116-GP; 97165-GO; 97530-GP; A9270-GY; J7620-GY

== ENCOUNTER 2017-09-19 19:51 | Inpatient (IN) | payer MEDICARE, BC ==
--- NOTE | 2017-09-19 20:08 | EDM.PDOC ---
ED HPI GENERAL MEDICAL PROBLEM - General Chief Complaint: General Stated Complaint: POSSIBLE INFECTION Time Seen by Provider: 09/19/17 19:57 Source of Information: Reports: Patient, Family History Limitations: Reports: No Limitations - History of Present Illness INITIAL COMMENTS - FREE TEXT/NARRATIVE: Patient states he was trying to get up earlier this evening and had a difficult time rising from his chair. Family in the room state that he has a history of getting urinary tract infections and when he has them, he gets weak. They are thinking that this is what is going on and would like to have blood work and urine tested. 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 His grandson is willing to change the bag to a fresh device. Fever. Onset: Sudden Onset Date: 09/19/17 Duration: Intermittent Location: Reports: Generalized Associated Symptoms: Reports: Weakness - Related Data Allergies Allergy/AdvReac Type Severity Reaction Status Date / Time No Known Allergies Allergy Verified 09/19/17 20:14 Home Meds: Home Meds Allopurinol [Zyloprim] 300 mg PO DAILY 09/10/14 [History] Tiotropium [Spiriva HandiHaler] 1 puff PO DAILY@0700 12/24/14 [History] Magnesium Oxide [Magnesium] 500 mg PO DAILY 01/26/16 [History] Diltiazem HCl [Cartia Xt] 180 mg PO DAILY 07/04/16 [History] Bisacodyl [Dulcolax] 5 mg PO DAILY PRN 07/07/16 [History] Docusate Sodium/Sennosides [Senna Plus] 1 tab PO BID@0700,1700 07/07/16 [History ] Albuterol [Proventil Neb Soln] 2.5 mg NEB BID 09/09/16 [History] Budesonide/Formoterol [Symbicort 160-4.5 MCG] 2 puff INH BID 09/09/16 [History] Cranberry Extract [Cranberry] 500 mg PO DAILY 09/09/16 [History] Lactobacillus Combination No.4 [Probiotic] 1 cap PO DAILY@1100 09/09/16 [History ] Lactulose [Generlac] 30 ml PO TID PRN 09/09/16 [History] Multivitamin [Multi-Vitamin Daily] 1 each PO DAILY 09/09/16 [History] D-Mannose 1 tab PO BID@0700,1700 04/26/17 [History] Furosemide [Lasix] 40 mg PO BID@0700,199904/27/17 [History] Metoprolol Succinate [Toprol XL] 25 mg PO DAILY@199904/27/17 [History] Warfarin [Coumadin] 5 mg PO DAILY@1700 04/27/17 [History] Omeprazole 20 mg PO DAILY 04/30/17 [History] Potassium Chloride 10 meq PO DAILY 04/30/17 [History] Cephalexin 1 tab PO DAILY 06/06/17 [History] Patient's Own Medication [Ptom] 0 each INH BID each 06/10/17 [Rx] Acetaminophen [Tylenol Extra Strength] 1,000 mg PO Q6H PRN 09/19/17 [History] Past Medical History HEENT History: Reports: Hard of Hearing, Impaired Vision Cardiovascular History: Reports: Afib, Aneurysm, Heart Failure, High Cholesterol , Hypertension, Pulmonary Hypertension, Other (See Below) Other Cardiovascular History: AAA Respiratory History: Reports: COPD, PE, SOB Other Respiratory History: hypoxia, oxygen dependent Gastrointestinal History: Reports: Chronic Constipation Genitourinary History: Reports: Hydronephrosis, Renal Calculus, UTI, Recurrent Other Genitourinary History: kidney stones Musculoskeletal History: Reports: Gout, Other (See Below) Other Musculoskeletal History: collapsed vertebra, compression fracture of spine Neurological History: Reports: Other (See Below) Other Neuro History: mild cognitive impairment Psychiatric History: Reports: Other (See Below) Other Psychiatric History: adjustment disorder Endocrine/Metabolic History: Reports: None Hematologic History: Reports: Other (See Below) Other Hematologic History: coumadin therapy Immunologic History: Reports: None Oncologic (Cancer) History: Reports: Bladder Dermatologic History: Reports: Other (See Below) Other Dermatologic History: lymphadenopathy - Infectious Disease History Infectious Disease History: Reports: None - Past Surgical History HEENT Surgical History: Reports: Cataract Surgery Other HEENT Surgeries/Procedures: Unspecific Eye surgery Cardiovascular Surgical History: Reports: AAA Repair Other Cardiovascular Surgeries/Procedures: endoluminal aortic stent Respiratory Surgical History: Reports: None GI Surgical History: Reports: Hernia, Inguinal Other GI Surgeries/Procedures: Endoluminal Aortic Stent Male Surgical History: Reports: Cystectomy, TURP-Transurethral Resection of Prostate Other Male Surgeries/Procedures: UROSTOMY Dermatological Surgical History: Reports: None Social & Family History - Family History Cardiac: Reports: CAD Respiratory: Reports: None GI: Reports: None : Reports: None OBGYN: Reports: None Musculoskeletal: Reports: Arthritis Neurological: Reports: None Psychiatric: Reports: None Endocrine/Metabolic: Reports: Diabetes, type II Hematologic: Reports: None Immunologic: Reports: None Oncologic: Reports: Bladder, Breast, Colon, Skin - Caffeine Use Caffeine Use: Reports: Coffee - Living Situation & Occupation Living situation: Reports: , Alone Occupation: Retired ED ROS GENERAL - Review of Systems Review Of Systems: See Below Constitutional: Reports: Fever HEENT: Reports: No Symptoms Respiratory: Reports: Shortness of Breath Cardiovascular: Reports: No Symptoms Endocrine: Reports: No Symptoms GI/Abdominal: Reports: No Symptoms : Reports: No Symptoms Musculoskeletal: Reports: No Symptoms Skin: Reports: No Symptoms Neurological: Reports: Weakness Psychiatric: Reports: No Symptoms Hematologic/Lymphatic: Reports: No Symptoms Immunologic: Reports: No Symptoms ED EXAM, GENERAL - Physical Exam Exam: See Below Exam Limited By: No Limitations General Appearance: Alert, WD/WN, No Apparent Distress Eye Exam: Bilateral Eye: EOMI, Normal Inspection, PERRL Ears: Normal TMs Nose: Normal Inspection, Normal Mucosa, No Blood Throat/Mouth: Normal Inspection, Normal Lips, Normal Teeth, Normal Gums, Normal Oropharynx, Normal Voice, No Airway Compromise Head: Atraumatic, Normocephalic Neck: Normal Inspection, Supple, Non-Tender, Full Range of Motion Respiratory/Chest: No Respiratory Distress, Lungs Clear, Normal Breath Sounds, No Accessory Muscle Use, Chest Non-Tender Cardiovascular: Normal Peripheral Pulses, Regular Rate, Rhythm, No Edema, No Gallop, No JVD, No Murmur, No Rub Peripheral Pulses: 2+: Posterior Tibial (L), Posterior Tibial (R), Dorsalis Pedis (L), Dorsalis Pedis (R) GI/Abdominal: Normal Bowel Sounds, Soft, Non-Tender, Other (ileostomy) Extremities: Normal Inspection, Normal Range of Motion, Non-Tender, Normal Capillary Refill, No Pedal Edema Neurological: Alert, Oriented, CN II-XII Intact, Normal Cognition, Normal Gait, Normal Reflexes, No Motor/Sensory Deficits Psychiatric: Normal Affect, Normal Mood Skin Exam: Warm, Dry, Intact, Normal Color, No Rash Lymphatic: No Adenopathy Course - Vital Signs Last Recorded V/S: Last Vital Signs Temp 38.4 C H 09/19/17 20:09 Pulse 101 H 09/19/17 20:09 Resp 18 09/19/17 20:09 BP 117/71 09/19/17 20:09 Pulse Ox 3 L 09/19/17 20:09 - Orders/Labs/Meds Orders: Active Orders 24 hr Category Date Time Status EKG Documentation Completion [RC] ROUTINE Care 09/19/17 20:03 Active Chest 1V Frontal [CR] Stat Exams 09/19/17 20:03 Taken CULTURE BLOOD [BC] Stat Lab 09/19/17 20:38 Received CULTURE BLOOD [BC] Stat Lab 09/19/17 20:47 Received CULTURE URINE [RM] Stat Lab 09/19/17 20:19 Ordered UA W/MICROSCOPIC [URIN] Stat Lab 09/19/17 19:57 Ordered Sodium Chloride 0.9% [Saline Flush] Med 09/19/17 20:03 Active 10 ml FLUSH ASDIRECTED PRN Blood Culture x2 Reflex Set [OM.PC] Stat Oth 09/19/17 20:03 Ordered Saline Lock Insert [OM.PC] Routine Oth 09/19/17 20:03 Ordered Medication Orders Acetaminophen (Tylenol) 650 mg PO Q4H PRN PRN Reason: Pain (Mild 1-3)/fever Albuterol (Proventil Neb Soln) 2.5 mg NEB BID [facility] Allopurinol (Zyloprim) 300 mg PO DAILY [facility] Bisacodyl (Dulcolax) 5 mg PO DAILY PRN PRN Reason: Constipation Diltiazem HCl (Cardizem Cd) 180 mg PO DAILY [facility] Ciprofloxacin/Dextrose 400 mg/ (Premix) 200 mls @ 200 mls/hr IV Q12H [facility] Metoprolol Succinate (Toprol Xl) 25 mg PO DAILY@2000 [facility] Non-Formulary Medication (Budesonide/Formoterol [Symbicort 160-4.5 Mcg]) 2 puff INH BID [facility] Non-Formulary Medication (Cranberry Extract [Cranberry]) 500 mg PO DAILY [facility] Non-Formulary Medication (D-Mannose [D-Mannose]) 1 tab PO BID@0700,1700 [facility] Non-Formulary Medication (Docusate Sodium/Sennosides [Senna Plus]) 1 tab PO BID @0700,1700 [facility] Non-Formulary Medication (Lactobacillus Combination No.4 [Probiotic]) 1 cap PO DAILY@1100 [facility] Non-Formulary Medication (Lactulose [Generlac]) 30 ml PO TID PRN PRN Reason: Constipation Non-Formulary Medication (Magnesium Oxide [Magnesium]) 500 mg PO DAILY [facility] Omeprazole (Omeprazole) 20 mg PO DAILY [facility] Sodium Chloride (Saline Flush) 10 ml FLUSH ASDIRECTED PRN PRN Reason: Keep Vein Open Tiotropium [place] (Spiriva Handihaler) mcg INH DAILY@0700 [facility] Warfarin Sodium (Coumadin) 0 mg PO DAILY@1700 [facility] Labs: Laboratory Tests 09/19/17 09/19/17 09/19/17 Range/Units 19:57 20:38 20:38 WBC 10.8 H (4.0-10.0) x10^3/uL RBC 4.46 L (4.5-6.0) x10^6/uL Hgb 15.2 (14.0-18.0) g/dL Hct 46.0 (40.0-52.0) % MCV 103.1 H (78.0-93.0) fL MCH 34.1 H (26.0-32.0) pg MCHC 33.0 (32.0-36.0) g/dL RDW Coeff of Lety 13.7 (10.0-15.0) % Plt Count 202 (130-400) x10^3/uL Add Manual Diff Yes Neutrophils % (Manual) 68 (50-80) % Band Neutrophils % 1 (0-6) % Lymphocytes % (Manual) 20 L (25-50) % Atypical Lymphs % 2 H (0) % Monocytes % (Manual) 7 (2-11) % Basophils % (Manual) 1 (0-1) % Myelocytes % 1 H (0) % Platelet Estimate Adequate Macrocytosis 1+ slight H PT (9.6-11.4) SEC INR (2.0-3.5) Sodium (136-145) mmol/L Potassium (3.5-5.1) mmol/L Chloride (98-107) mmol/L Carbon Dioxide (21-32) mmol/L Anion Gap (10-20) mmol/L BUN (7-18) mg/dL Creatinine (0.70-1.30) mg/dL Est Cr Clr Drug Dosing mL/min Estimated GFR (MDRD) Glucose (74-106) mg/dL Lactic Acid 1.1 (0.4-2.0) mmol/L Calcium (8.5-10.1) mg/dL Corrected Calcium (8.5-10.1) mg/dL Magnesium (1.8-2.4) mg/dL Total Bilirubin (0.2-1.0) mg/dL AST (15-37) U/L ALT (16-63) U/L Alkaline Phosphatase (46-116) U/L Troponin I (<=0.056) ng/mL C-Reactive Protein (<=0.9) mg/dL NT-Pro-B Natriuret Pep (<=450) pg/mL Total Protein (6.4-8.2) g/dL Albumin (3.4-5.0) g/dL Globulin g/dL Albumin/Globulin Ratio Urine Color Yellow (YELLOW) Urine Appearance Turbid H (CLEAR) Urine pH 7.0 (5.0-8.0) Ur Specific [place] 1.020 Urine Protein >=300 H (NEGATIVE) mg/dL Urine Glucose (UA) Negative (NEGATIVE) mg/dL Urine Ketones Negative (NEGATIVE) mg/dL Urine Occult Blood Large H (NEGATIVE) Urine Nitrite Negative (NEGATIVE) Urine Bilirubin Negative (NEGATIVE) Urine Urobilinogen 0.2 (0.2) EU/dL Ur Leukocyte Esterase Large H (NEGATIVE) Urine RBC 30-40 H (NOT SEEN) /HPF Urine WBC Packed (NOT SEEN) /HPF Urine WBC Clumps Moderate Ur Squamous Epith Cells Not seen (NEGATIVE) /HPF Amorphous Sediment Few Urine Bacteria Few H (NEGATIVE) /HPF Urine Mucus Few H (NEGATIVE) /LPF 09/19/17 09/19/17 09/19/17 Range/Units 20:38 20:38 20:38 WBC (4.0-10.0) x10^3/uL RBC (4.5-6.0) x10^6/uL Hgb (14.0-18.0) g/dL Hct (40.0-52.0) % MCV (78.0-93.0) fL MCH (26.0-32.0) pg MCHC (32.0-36.0) g/dL RDW Coeff of Lety (10.0-15.0) % Plt Count (130-400) x10^3/uL Add Manual Diff Neutrophils % (Manual) (50-80) % Band Neutrophils % (0-6) % Lymphocytes % (Manual) (25-50) % Atypical Lymphs % (0) % Monocytes % (Manual) (2-11) % Basophils % (Manual) (0-1) % Myelocytes % (0) % Platelet Estimate Macrocytosis PT 21.6 H (9.6-11.4) SEC INR 2.1 (2.0-3.5) Sodium 138 (136-145) mmol/L Potassium 4.0 (3.5-5.1) mmol/L Chloride 102 (98-107) mmol/L Carbon Dioxide 27 (21-32) mmol/L Anion Gap 13.0 (10-20) mmol/L BUN 24 H (7-18) mg/dL Creatinine 1.5 H (0.70-1.30) mg/dL Est Cr Clr Drug Dosing 40.24 mL/min Estimated GFR (MDRD) 45 Glucose 117 H (74-106) mg/dL Lactic Acid (0.4-2.0) mmol/L Calcium 9.3 (8.5-10.1) mg/dL Corrected Calcium 9.54 (8.5-10.1) mg/dL Magnesium 2.0 (1.8-2.4) mg/dL Total Bilirubin 0.7 (0.2-1.0) mg/dL AST 35 (15-37) U/L ALT 40 (16-63) U/L Alkaline Phosphatase 69 (46-116) U/L Troponin I < 0.017 (<=0.056) ng/mL C-Reactive Protein 1.4 H (<=0.9) mg/dL NT-Pro-B Natriuret Pep 2141 H (<=450) pg/mL Total Protein 7.0 (6.4-8.2) g/dL Albumin 3.7 (3.4-5.0) g/dL Globulin 3.3 g/dL Albumin/Globulin Ratio 1.12 Urine Color (YELLOW) Urine Appearance (CLEAR) Urine pH (5.0-8.0) Ur Specific [place] Urine Protein (NEGATIVE) mg/dL Urine Glucose (UA) (NEGATIVE) mg/dL Urine Ketones (NEGATIVE) mg/dL Urine Occult Blood (NEGATIVE) Urine Nitrite (NEGATIVE) Urine Bilirubin (NEGATIVE) Urine Urobilinogen (0.2) EU/dL Ur Leukocyte Esterase (NEGATIVE) Urine RBC (NOT SEEN) /HPF Urine WBC (NOT SEEN) /HPF Urine WBC Clumps Ur Squamous Epith Cells (NEGATIVE) /HPF Amorphous Sediment Urine Bacteria (NEGATIVE) /HPF Urine Mucus (NEGATIVE) /LPF Meds: Medications Generic Name Dose Route Start Last Admin Trade Name Freq PRN Reason Stop Dose Admin Acetaminophen 650 mg 09/19/17 22:54 Tylenol PO Q4H PRN Pain (Mild 1-3)/fever Albuterol 2.5 mg 09/20/17 08:00 Proventil Neb Soln NEB BID [facility] Allopurinol 300 mg 09/20/17 08:00 Zyloprim PO DAILY [facility] Bisacodyl 5 mg 09/19/17 23:03 Dulcolax PO DAILY PRN Constipation Diltiazem HCl 180 mg 09/20/17 08:00 Cardizem Cd PO DAILY [facility] Ciprofloxacin/Dextrose 400 mg/ 200 mls @ 200 mls/hr 09/20/17 00:00 Premix IV Q12H [facility] Metoprolol Succinate 25 mg 09/20/17 20:00 Toprol Xl PO DAILY@2000 [facility] Non-Formulary Medication 2 puff 09/20/17 08:00 Budesonide/Formoterol [Symbicort 160-4.5 Mcg] INH BID [facility] Non-Formulary Medication 500 mg 09/20/17 08:00 Cranberry Extract [Cranberry] PO DAILY [facility] Non-Formulary Medication 1 tab 09/20/17 07:00 D-Mannose [D-Mannose] PO BID@0700,1700 [facility] Non-Formulary Medication 1 tab 09/20/17 07:00 Docusate Sodium/Sennosides [Senna Plus] PO BID@0700,1700 [facility] Non-Formulary Medication 1 cap 09/20/17 11:00 Lactobacillus Combination No.4 [Probiotic] PO DAILY@1100 [facility] Non-Formulary Medication 30 ml 09/19/17 23:03 Lactulose [Generlac] PO TID PRN Constipation Non-Formulary Medication 500 mg 09/20/17 08:00 Magnesium Oxide [Magnesium] PO DAILY [facility] Omeprazole 20 mg 09/20/17 08:00 Omeprazole PO DAILY [facility] Sodium Chloride 10 ml 09/19/17 20:03 Saline Flush FLUSH ASDIRECTED PRN Keep Vein Open Tiotropium [place] mcg 09/20/17 07:00 Spiriva Handihaler INH DAILY@0700 [facility] Warfarin Sodium 0 mg 09/20/17 17:00 Coumadin PO DAILY@1700 [facility] Discontinued Medications Generic Name Dose Route Start Last Admin Trade Name Freq PRN Reason Stop Dose Admin Ceftriaxone Sodium 1 gm 09/19/17 20:56 09/19/17 21:01 Rocephin IVPUSH 09/19/17 20:57 1 gm STAT ONE Administration Departure - Departure Time of Disposition: 22:26 Disposition: Admitted As Inpatient 64 Condition: Fair Clinical Impression: UTI, Urinary tract infectious disease - Discharge Information ED Communication - ED Communication Date/Time Date: 09/19/17 Time Called: 21:45 - Discussed Case With (1) Discussed Case With (1): Admitting Provider (Dr. Garcia contacted. Report given. She will accept care of patient) - My Orders Last 24 Hours: My Active Orders 09/19/17 19:57 UA W/MICROSCOPIC [URIN] Stat 09/19/17 20:03 EKG Documentation Completion [RC] ROUTINE Chest 1V Frontal [CR] Stat Sodium Chloride 0.9% [Saline Flush] 10 ml FLUSH ASDIRECTED PRN Blood Culture x2 Reflex Set [OM.PC] Stat Saline Lock Insert [OM.PC] Routine 09/19/17 20:19 CULTURE URINE [RM] Stat 09/19/17 20:38 CULTURE BLOOD [BC] Stat 09/19/17 20:47 CULTURE BLOOD [BC] Stat - Assessment/Plan Last 24 Hours: My Active Orders 09/19/17 19:57 UA W/MICROSCOPIC [URIN] Stat 09/19/17 20:03 EKG Documentation Completion [RC] ROUTINE Chest 1V Frontal [CR] Stat Sodium Chloride 0.9% [Saline Flush] 10 ml FLUSH ASDIRECTED PRN Blood Culture x2 Reflex Set [OM.PC] Stat Saline Lock Insert [OM.PC] Routine 09/19/17 20:19 CULTURE URINE [RM] Stat 09/19/17 20:38 CULTURE BLOOD [BC] Stat 09/19/17 20:47 CULTURE BLOOD [BC] Stat
[2017-09-19] MEDS ORDERED: cefTRIAXone 1 GM Vial IVPUSH ONE (20:56)
[2017-09-19] MEDS ORDERED: Acetaminophen 325 MG Tab PO PRN (22:54)
[2017-09-19] MEDS ORDERED: Bisacodyl 5 MG Tab PO PRN (23:03)
--- NOTE | 2017-09-19 23:28 | PCM.HP ---
H&P History of Present Illness - General Date of Service: 09/19/17 Admit Problem/Dx: Admission Diagnosis/Problem Admission Diagnosis/Problem Weakness, fever, probable UTI Source of Information: Patient, Old Records - History of Present Illness Initial Comments - Free Text/Narative: Chief complaint: Weakness History of present illness: Patient was brought to the emergency room because of weakness. Patient was feeling alright earlier today and then at about 5:00 he started having difficulty getting up out of the chair a few hours later he was absolutely unable to get off the side of his bed he called his children they brought him to the emergency room. Patient has had weakness sometimes when he had a urinary tract infection. Patient was found to have a temperature of 101.2 in the emergency room and now is admitted for treatment of a presumptive UTI. 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 He says that the ileostomy has been working well and his urine had been clear and optically foul- smelling. He has not had any back pain. Patient denies any fevers at home chills , he's had a little bit of a cough ; denies headache, sinus problems, rashes, abdominal pain . Past medical history Bladder CA with hydronephrosis Chronic atrial fibrillation on Coumadin Gout History of PE Abdominal aortic aneurysm COPD: On oxygen at 3 L/m chronically Kidney stones Mild cognitive impairment hyperlipidemia moderate to severe pulmonary hypertension Vertebroplasty Renal artery stents. 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, he has 4 children who live locally He lives in an apartment by himself and does his ADLs cooks ,cleans independently - Related Data Allergies/Adverse Reactions: Allergies Allergy/AdvReac Type Severity Reaction Status Date / Time No Known Allergies Allergy Verified 09/19/17 20:14 Home Medications: Home Meds Allopurinol [Zyloprim] 300 mg PO DAILY 09/10/14 [History] Tiotropium [Spiriva HandiHaler] 1 puff PO DAILY@0700 12/24/14 [History] Magnesium Oxide [Magnesium] 500 mg PO DAILY 01/26/16 [History] Diltiazem HCl [Cartia Xt] 180 mg PO DAILY 07/04/16 [History] Bisacodyl [Dulcolax] 5 mg PO DAILY PRN 07/07/16 [History] Docusate Sodium/Sennosides [Senna Plus] 1 tab PO BID@0700,1700 07/07/16 [History ] Albuterol [Proventil Neb Soln] 2.5 mg NEB BID 09/09/16 [History] Budesonide/Formoterol [Symbicort 160-4.5 MCG] 2 puff INH BID 09/09/16 [History] Cranberry Extract [Cranberry] 500 mg PO DAILY 09/09/16 [History] Lactobacillus Combination No.4 [Probiotic] 1 cap PO DAILY@1100 09/09/16 [History ] Lactulose [Generlac] 30 ml PO TID PRN 09/09/16 [History] Multivitamin [Multi-Vitamin Daily] 1 each PO DAILY 09/09/16 [History] D-Mannose 1 tab PO BID@0700,1700 04/26/17 [History] Furosemide [Lasix] 40 mg PO BID@0700,199904/27/17 [History] Metoprolol Succinate [Toprol XL] 25 mg PO DAILY@199904/27/17 [History] Warfarin [Coumadin] 5 mg PO DAILY@1700 04/27/17 [History] Omeprazole 20 mg PO DAILY 04/30/17 [History] Potassium Chloride 10 meq PO DAILY 04/30/17 [History] Cephalexin 1 tab PO DAILY 06/06/17 [History] Patient's Own Medication [Ptom] 0 each INH BID each 06/10/17 [Rx] Acetaminophen [Tylenol Extra Strength] 1,000 mg PO Q6H PRN 09/19/17 [History] Past Medical History HEENT History: Reports: Hard of Hearing, Impaired Vision Cardiovascular History: Reports: Afib, Aneurysm, Heart Failure, High Cholesterol , Hypertension, Pulmonary Hypertension, Other (See Below) Other Cardiovascular History: AAA Respiratory History: Reports: COPD, PE, SOB Other Respiratory History: hypoxia, oxygen dependent Gastrointestinal History: Reports: Chronic Constipation Genitourinary History: Reports: Hydronephrosis, Renal Calculus, UTI, Recurrent Other Genitourinary History: kidney stones Musculoskeletal History: Reports: Gout, Other (See Below) Other Musculoskeletal History: collapsed vertebra, compression fracture of spine Neurological History: Reports: Other (See Below) Other Neuro History: mild cognitive impairment Psychiatric History: Reports: Other (See Below) Other Psychiatric History: adjustment disorder Endocrine/Metabolic History: Reports: None Hematologic History: Reports: Other (See Below) Other Hematologic History: coumadin therapy Immunologic History: Reports: None Oncologic (Cancer) History: Reports: Bladder Dermatologic History: Reports: Other (See Below) Other Dermatologic History: lymphadenopathy - Infectious Disease History Infectious Disease History: Reports: None - Past Surgical History HEENT Surgical History: Reports: Cataract Surgery Other HEENT Surgeries/Procedures: Unspecific Eye surgery Cardiovascular Surgical History: Reports: AAA Repair Other Cardiovascular Surgeries/Procedures: endoluminal aortic stent Respiratory Surgical History: Reports: None GI Surgical History: Reports: Hernia, Inguinal Other GI Surgeries/Procedures: Endoluminal Aortic Stent Male Surgical History: Reports: Cystectomy, TURP-Transurethral Resection of Prostate Other Male Surgeries/Procedures: UROSTOMY Dermatological Surgical History: Reports: None Social & Family History - Family History Cardiac: Reports: CAD Respiratory: Reports: None GI: Reports: None : Reports: None OBGYN: Reports: None Musculoskeletal: Reports: Arthritis Neurological: Reports: None Psychiatric: Reports: None Endocrine/Metabolic: Reports: Diabetes, type II Hematologic: Reports: None Immunologic: Reports: None Oncologic: Reports: Bladder, Breast, Colon, Skin - Tobacco Use Smoking Status *Q: Former Smoker Used Tobacco, but Quit: Yes Month/Year Tobacco Last Used: 55 years ago from 2018 - Caffeine Use Caffeine Use: Reports: Coffee - Recreational Drug Use Recreational Drug Use: No - Living Situation & Occupation Living situation: Reports: , Alone Occupation: Retired H&P Review of Systems - Review of Systems: Review Of Systems: See Below General: Reports: No Symptoms HEENT: Reports: No Symptoms Pulmonary: Reports: Shortness of Breath (Uses oxygen at home chronically during patient had a COPD exacerbation about 6 weeks ago) Cardiovascular: Reports: No Symptoms Gastrointestinal: Reports: No Symptoms Genitourinary: Reports: No Symptoms Musculoskeletal: Reports: No Symptoms Skin: Reports: No Symptoms Psychiatric: Reports: No Symptoms Neurological: Reports: No Symptoms Exam - Exam Exam: See Below - Vital Signs Vital Signs: Last Vital Signs Temp 101.2 F H 09/19/17 20:09 Pulse 101 H 09/19/17 20:09 Resp 18 09/19/17 20:09 BP 117/71 09/19/17 20:09 Pulse Ox 3 L 09/19/17 20:09 Weight: 218 lb 4.8 oz - Exam Quality Assessment: Supplemental Oxygen General: Alert, Oriented HEENT: Conjunctiva Clear, Pupils Equal Neck: Supple, Trachea Midline, +2 Carotid Pulse wo Bruit Lungs: Clear to Auscultation Cardiovascular: Irregular Rhythm GI/Abdominal Exam: Normal Bowel Sounds, Soft, Non-Tender, No Distention (Male) Exam: Other (Ureterostomy bag is draining well, urine looks clear) Back Exam: Normal Inspection Extremities: Normal Inspection, No Pedal Edema Peripheral Pulses: 2+: Carotid (L), Carotid (R), Femoral (L), Femoral (R), Dorsalis Pedis (L), Dorsalis Pedis (R) Skin: Warm, Dry Neurological: Cranial Nerves Intact, Normal Speech Neuro Extensive - Mental Status: Oriented x3, Memory Intact Psychiatric: Alert, Normal Affect - Patient Data Lab Results Last 24 hrs: Laboratory Results - last 24 hr 09/19/17 09/19/17 09/19/17 Range/Units 19:57 20:38 20:38 WBC 10.8 H (4.0-10.0) x10^3/uL RBC 4.46 L (4.5-6.0) x10^6/uL Hgb 15.2 (14.0-18.0) g/dL Hct 46.0 (40.0-52.0) % MCV 103.1 H (78.0-93.0) fL MCH 34.1 H (26.0-32.0) pg MCHC 33.0 (32.0-36.0) g/dL RDW Coeff of Lety 13.7 (10.0-15.0) % Plt Count 202 (130-400) x10^3/uL Add Manual Diff Yes Neutrophils % (Manual) 68 (50-80) % Band Neutrophils % 1 (0-6) % Lymphocytes % (Manual) 20 L (25-50) % Atypical Lymphs % 2 H (0) % Monocytes % (Manual) 7 (2-11) % Basophils % (Manual) 1 (0-1) % Myelocytes % 1 H (0) % Platelet Estimate Adequate Macrocytosis 1+ slight H PT (9.6-11.4) SEC INR (2.0-3.5) Sodium (136-145) mmol/L Potassium (3.5-5.1) mmol/L Chloride (98-107) mmol/L Carbon Dioxide (21-32) mmol/L Anion Gap (10-20) mmol/L BUN (7-18) mg/dL Creatinine (0.70-1.30) mg/dL Est Cr Clr Drug Dosing mL/min Estimated GFR (MDRD) Glucose (74-106) mg/dL Lactic Acid 1.1 (0.4-2.0) mmol/L Calcium (8.5-10.1) mg/dL Corrected Calcium (8.5-10.1) mg/dL Magnesium (1.8-2.4) mg/dL Total Bilirubin (0.2-1.0) mg/dL AST (15-37) U/L ALT (16-63) U/L Alkaline Phosphatase (46-116) U/L Troponin I (<=0.056) ng/mL C-Reactive Protein (<=0.9) mg/dL NT-Pro-B Natriuret Pep (<=450) pg/mL Total Protein (6.4-8.2) g/dL Albumin (3.4-5.0) g/dL Globulin g/dL Albumin/Globulin Ratio Urine Color Yellow (YELLOW) Urine Appearance Turbid H (CLEAR) Urine pH 7.0 (5.0-8.0) Ur Specific [place] 1.020 Urine Protein >=300 H (NEGATIVE) mg/dL Urine Glucose (UA) Negative (NEGATIVE) mg/dL Urine Ketones Negative (NEGATIVE) mg/dL Urine Occult Blood Large H (NEGATIVE) Urine Nitrite Negative (NEGATIVE) Urine Bilirubin Negative (NEGATIVE) Urine Urobilinogen 0.2 (0.2) EU/dL Ur Leukocyte Esterase Large H (NEGATIVE) Urine RBC 30-40 H (NOT SEEN) /HPF Urine WBC Packed (NOT SEEN) /HPF Urine WBC Clumps Moderate Ur Squamous Epith Cells Not seen (NEGATIVE) /HPF Amorphous Sediment Few Urine Bacteria Few H (NEGATIVE) /HPF Urine Mucus Few H (NEGATIVE) /LPF 09/19/17 09/19/17 09/19/17 Range/Units 20:38 20:38 20:38 WBC (4.0-10.0) x10^3/uL RBC (4.5-6.0) x10^6/uL Hgb (14.0-18.0) g/dL Hct (40.0-52.0) % MCV (78.0-93.0) fL MCH (26.0-32.0) pg MCHC (32.0-36.0) g/dL RDW Coeff of Lety (10.0-15.0) % Plt Count (130-400) x10^3/uL Add Manual Diff Neutrophils % (Manual) (50-80) % Band Neutrophils % (0-6) % Lymphocytes % (Manual) (25-50) % Atypical Lymphs % (0) % Monocytes % (Manual) (2-11) % Basophils % (Manual) (0-1) % Myelocytes % (0) % Platelet Estimate Macrocytosis PT 21.6 H (9.6-11.4) SEC INR 2.1 (2.0-3.5) Sodium 138 (136-145) mmol/L Potassium 4.0 (3.5-5.1) mmol/L Chloride 102 (98-107) mmol/L Carbon Dioxide 27 (21-32) mmol/L Anion Gap 13.0 (10-20) mmol/L BUN 24 H (7-18) mg/dL Creatinine 1.5 H (0.70-1.30) mg/dL Est Cr Clr Drug Dosing 40.24 mL/min Estimated GFR (MDRD) 45 Glucose 117 H (74-106) mg/dL Lactic Acid (0.4-2.0) mmol/L Calcium 9.3 (8.5-10.1) mg/dL Corrected Calcium 9.54 (8.5-10.1) mg/dL Magnesium 2.0 (1.8-2.4) mg/dL Total Bilirubin 0.7 (0.2-1.0) mg/dL AST 35 (15-37) U/L ALT 40 (16-63) U/L Alkaline Phosphatase 69 (46-116) U/L Troponin I < 0.017 (<=0.056) ng/mL C-Reactive Protein 1.4 H (<=0.9) mg/dL NT-Pro-B Natriuret Pep 2141 H (<=450) pg/mL Total Protein 7.0 (6.4-8.2) g/dL Albumin 3.7 (3.4-5.0) g/dL Globulin 3.3 g/dL Albumin/Globulin Ratio 1.12 Urine Color (YELLOW) Urine Appearance (CLEAR) Urine pH (5.0-8.0) Ur Specific [place] Urine Protein (NEGATIVE) mg/dL Urine Glucose (UA) (NEGATIVE) mg/dL Urine Ketones (NEGATIVE) mg/dL Urine Occult Blood (NEGATIVE) Urine Nitrite (NEGATIVE) Urine Bilirubin (NEGATIVE) Urine Urobilinogen (0.2) EU/dL Ur Leukocyte Esterase (NEGATIVE) Urine RBC (NOT SEEN) /HPF Urine WBC (NOT SEEN) /HPF Urine WBC Clumps Ur Squamous Epith Cells (NEGATIVE) /HPF Amorphous Sediment Urine Bacteria (NEGATIVE) /HPF Urine Mucus (NEGATIVE) /LPF Result Diagrams: 09/19/17 20:38 09/19/17 20:38 EKG INTERPRETATION Rhythm: A-Fib Rate (Beats/Min): 86 EKG Interpretation Comments: [place] deviation, low QRS voltage, Q waves V1 and V2 V3. Possible anterior wall of unknown age. Unable to access EKG of 3 years ago however the anterior wall VA with commented on at that point as well. Suspect there is been no change *Q Meaningful Use (ADM) - VTE *Q VTE Pharmacological Contraindications *Q: High INR Value (on warfarin for afib already) Problem List Initiated/Reviewed/Updated: Yes Orders Last 24hrs: Active Orders 24 hr Category Date Time Status Admission Status [Patient Status] [ADT] Routine ADT 09/19/17 21:43 Active Patient Status [ADT] Routine ADT 09/19/17 21:43 Active Patient Status [ADT] Routine ADT 09/19/17 22:54 Active Cardiac Monitoring [RC] CONTINUOUS Care 09/19/17 22:56 Active EKG Documentation Completion [RC] ROUTINE Care 09/19/17 20:03 Active Height and Weight [RC] DAILY Care 09/19/17 22:54 Active Oxygen Therapy [RC] CONTINUOUS Care 09/19/17 22:54 Active VTE/DVT Education [RC] PER UNIT ROUTINE Care 09/19/17 22:54 Active Vital Signs [RC] Q4H Care 09/19/17 22:54 Active 2 Gram Sodium Diet [DIET] Diet 09/20/17 Breakfast Active Chest 1V Frontal [CR] Stat Exams 09/19/17 20:03 Taken CBC W/O DIFF,HEMOGRAM [HEME] AM Lab 09/20/17 05:11 Ordered CULTURE BLOOD [BC] Stat Lab 09/19/17 20:38 Received CULTURE BLOOD [BC] Stat Lab 09/19/17 20:47 Received CULTURE URINE [RM] Stat Lab 09/19/17 20:19 Ordered INR,PT,PROTHROMBIN TIME [COAG] Routine Lab 09/20/17 05:11 Ordered MAGNESIUM [CHEM] AM Lab 09/20/17 05:11 Ordered TROPONIN I [CHEM] AM Lab 09/20/17 05:11 Ordered UA W/MICROSCOPIC [URIN] Stat Lab 09/19/17 19:57 Ordered Acetaminophen [Tylenol] Med 09/19/17 22:54 Active 650 mg PO Q4H PRN Albuterol [Proventil Neb Soln] Med 09/20/17 08:00 Ordered 2.5 mg NEB BID Allopurinol [Zyloprim] Med 09/20/17 08:00 Ordered 300 mg PO DAILY Bisacodyl [Dulcolax] Med 09/19/17 23:03 Ordered 5 mg PO DAILY PRN Budesonide/Formoterol [Symbicort 160-4.5 MCG] Med 09/20/17 08:00 Ordered 2 puff INH BID Ciprofloxacin in D5W [Cipro in D5W 400 MG/200 ML] 400 Med 09/20/17 00:00 Active mg Premix Bag 1 bag IV Q12H Cranberry Extract [Cranberry] Med 09/20/17 08:00 Ordered 500 mg PO DAILY D-Mannose [D-Mannose] Med 09/20/17 07:00 Ordered 1 tab PO BID@0700,1700 Diltiazem [Cardizem CD] Med 09/20/17 08:00 Ordered 180 mg PO DAILY Docusate Sodium/Sennosides [Senna Plus] Med 09/20/17 07:00 Ordered 1 tab PO BID@0700,1700 Lactobacillus Combination No.4 [Probiotic] Med 09/20/17 11:00 Ordered 1 cap PO DAILY@1100 Lactulose [Generlac] Med 09/19/17 23:03 Ordered 30 ml PO TID PRN Magnesium Oxide [Magnesium] Med 09/20/17 08:00 Ordered 500 mg PO DAILY Metoprolol Succinate [Toprol XL] Med 09/20/17 20:00 Ordered 25 mg PO DAILY@2000 Omeprazole Med 09/20/17 08:00 Ordered 20 mg PO DAILY Sodium Chloride 0.9% [Saline Flush] Med 09/19/17 20:03 Active 10 ml FLUSH ASDIRECTED PRN Tiotropium [Spiriva HandiHaler] Med 09/20/17 07:00 Ordered DOSE mcg INH DAILY@0700 Warfarin [Coumadin] Med 09/20/17 17:00 Ordered See Dose Instructions PO DAILY@1700 Blood Culture x2 Reflex Set [OM.PC] Stat Oth 09/19/17 20:03 Ordered Saline Lock Insert [OM.PC] Routine Oth 09/19/17 20:03 Ordered Resuscitation Status Routine Resus Stat 09/19/17 22:54 Ordered Medication Orders Acetaminophen (Tylenol) 650 mg PO Q4H PRN PRN Reason: Pain (Mild 1-3)/fever Albuterol (Proventil Neb Soln) 2.5 mg NEB BID [facility] Allopurinol (Zyloprim) 300 mg PO DAILY [facility] Bisacodyl (Dulcolax) 5 mg PO DAILY PRN PRN Reason: Constipation Diltiazem HCl (Cardizem Cd) 180 mg PO DAILY [facility] Ciprofloxacin/Dextrose 400 mg/ (Premix) 200 mls @ 200 mls/hr IV Q12H [facility] Metoprolol Succinate (Toprol Xl) 25 mg PO DAILY@2000 [facility] Non-Formulary Medication (Budesonide/Formoterol [Symbicort 160-4.5 Mcg]) 2 puff INH BID [facility] Non-Formulary Medication (Cranberry Extract [Cranberry]) 500 mg PO DAILY [facility] Non-Formulary Medication (D-Mannose [D-Mannose]) 1 tab PO BID@0700,1700 [facility] Non-Formulary Medication (Docusate Sodium/Sennosides [Senna Plus]) 1 tab PO BID @0700,1700 [facility] Non-Formulary Medication (Lactobacillus Combination No.4 [Probiotic]) 1 cap PO DAILY@1100 [facility] Non-Formulary Medication (Lactulose [Generlac]) 30 ml PO TID PRN PRN Reason: Constipation Non-Formulary Medication (Magnesium Oxide [Magnesium]) 500 mg PO DAILY [facility] Omeprazole (Omeprazole) 20 mg PO DAILY [facility] Sodium Chloride (Saline Flush) 10 ml FLUSH ASDIRECTED PRN PRN Reason: Keep Vein Open Tiotropium [place] (Spiriva Handihaler) mcg INH DAILY@0700 [facility] Warfarin Sodium (Coumadin) 0 mg PO DAILY@1700 [facility] Assessment/Plan Comment:: 1. Fever: Chest x-ray shows chronic scarring in the left lung and I don't see an infiltrate. He has normal lung examination. He has no focus for infection other than his ureterostomy bag. At the end of July he is urine was growing out 2 different strains of pseudomonas aeruginosa were both susceptible to cephalosporins however he has been on chronic suppressive therapy with cephalexin. At this point we'll start Cipro 400 IV every 12 while awaiting urine culture and blood culture 2. Weakness: In the absence of any other obvious etiology ascribed this to his fever and UTI: Patient is not safe to be at home we'll treat the UTI start physical therapy as tolerated 3. COPD: Appears to be compensated, will continue inhalers and O2 at 3 L/m. The patient's last clinic note indicates he was on prednisone 20 mg daily but may have been for COPD exacerbation. He becomes short of breath and or hypoxic. Restart steroids 4. Atrial fibrillation: Continue with Coumadin, check INR in the morning, telemetry\ 5. Question of history of CHF: Patient looks a little bit dry right now we'll hold his Lasix
[2017-09-20] MEDS: Ciprofloxacin in D5W 400 MG in Premix Bag 1 BAG IV SCH ×6 (00:20→23:23)
[2017-09-20] MEDS: Metoprolol Succinate 25 MG Tab.ER PO SCH ×2 (00:35→20:32)
[2017-09-20] MEDS: Warfarin 5 MG Tab PO SCH ×2 (00:36→20:32)
[2017-09-20] MEDS: Ipratropium 0.02% 0.5 MG/2.5 ML Neb Soln INH SCH ×4 (06:29→23:24)
[2017-09-20] MEDS: Albuterol 0.083% 2.5 MG/3 ML Neb Soln NEB SCH ×2 (06:50→20:33)
[2017-09-20] MEDS: Formoterol/Mometasone 200-5 MCG 8.8 GM Inhaler IH SCH ×2 (06:52→20:33)
[2017-09-20] MEDS ORDERED: Tiotropium Inhaler 18 MCG Inhalation Powder Cap Kit of 5 INH SCH (07:00)
[2017-09-20] MEDS ORDERED: D MANNOSE PO SCH (07:00)
[2017-09-20] MEDS ORDERED: Non-Formulary Medication 1 Each (Budesonide/Formoterol [Symbicort 160-4.5 Mcg] 2 PUFF) INH SCH (08:00)
[2017-09-20] MEDS: Allopurinol 300 MG Tab PO SCH (08:06)
[2017-09-20] MEDS: Cranberry 500 MG Cap PO SCH (08:06)
[2017-09-20] MEDS: Diltiazem 180 MG Cap.CD PO SCH (08:06)
[2017-09-20] MEDS ORDERED: Lactulose Soln 10 GM/15 ML 30 ML UD Cup PO PRN (09:45)
[2017-09-20] MEDS ORDERED: Lactobacillus Rhamnosus GG (Probiotic) Cap PO SCH (11:00)
[2017-09-20] MEDS: Magnesium Oxide 400 MG Tab PO SCH (11:45)
[2017-09-20] MEDS: Omeprazole 20 MG Cap.CR PO SCH (11:45)
[2017-09-20] MEDS ORDERED: predniSONE 10 MG Tab PO ONE (12:37)
--- NOTE | 2017-09-20 12:47 | PCM.PN ---
- General Info Date of Service: 09/20/17 Admission Dx/Problem (Free Text): Pt still feels weak. Gets SOB with walking; no abd pain - Patient Data Vitals - Most Recent: Last Vital Signs Temp 98 F 09/20/17 10:00 Pulse 71 09/20/17 10:00 Resp 18 09/20/17 10:00 BP 111/67 09/20/17 10:00 Pulse Ox 96 09/20/17 10:00 Weight - Most Recent: 219 lb 6.4 oz I&O - Last 24 Hours: Intake & Output 09/19/17 09/20/17 09/20/17 22:59 06:59 14:59 Intake Total 520 Output Total 400 Balance 120 Lab Results Last 24 Hours: Laboratory Results - last 24 hr 09/19/17 09/19/17 09/19/17 Range/Units 19:57 20:38 20:38 WBC 10.8 H (4.0-10.0) x10^3/uL RBC 4.46 L (4.5-6.0) x10^6/uL Hgb 15.2 (14.0-18.0) g/dL Hct 46.0 (40.0-52.0) % MCV 103.1 H (78.0-93.0) fL MCH 34.1 H (26.0-32.0) pg MCHC 33.0 (32.0-36.0) g/dL RDW Coeff of Lety 13.7 (10.0-15.0) % Plt Count 202 (130-400) x10^3/uL Add Manual Diff Yes Neutrophils % (Manual) 68 (50-80) % Band Neutrophils % 1 (0-6) % Lymphocytes % (Manual) 20 L (25-50) % Atypical Lymphs % 2 H (0) % Monocytes % (Manual) 7 (2-11) % Basophils % (Manual) 1 (0-1) % Myelocytes % 1 H (0) % Platelet Estimate Adequate Macrocytosis 1+ slight H PT (9.6-11.4) SEC INR (2.0-3.5) Sodium (136-145) mmol/L Potassium (3.5-5.1) mmol/L Chloride (98-107) mmol/L Carbon Dioxide (21-32) mmol/L Anion Gap (10-20) mmol/L BUN (7-18) mg/dL Creatinine (0.70-1.30) mg/dL Est Cr Clr Drug Dosing mL/min Estimated GFR (MDRD) Glucose (74-106) mg/dL Lactic Acid 1.1 (0.4-2.0) mmol/L Calcium (8.5-10.1) mg/dL Corrected Calcium (8.5-10.1) mg/dL Magnesium (1.8-2.4) mg/dL Total Bilirubin (0.2-1.0) mg/dL AST (15-37) U/L ALT (16-63) U/L Alkaline Phosphatase (46-116) U/L Troponin I (<=0.056) ng/mL C-Reactive Protein (<=0.9) mg/dL NT-Pro-B Natriuret Pep (<=450) pg/mL Total Protein (6.4-8.2) g/dL Albumin (3.4-5.0) g/dL Globulin g/dL Albumin/Globulin Ratio Urine Color Yellow (YELLOW) Urine Appearance Turbid H (CLEAR) Urine pH 7.0 (5.0-8.0) Ur Specific [place] 1.020 Urine Protein >=300 H (NEGATIVE) mg/dL Urine Glucose (UA) Negative (NEGATIVE) mg/dL Urine Ketones Negative (NEGATIVE) mg/dL Urine Occult Blood Large H (NEGATIVE) Urine Nitrite Negative (NEGATIVE) Urine Bilirubin Negative (NEGATIVE) Urine Urobilinogen 0.2 (0.2) EU/dL Ur Leukocyte Esterase Large H (NEGATIVE) Urine RBC 30-40 H (NOT SEEN) /HPF Urine WBC Packed (NOT SEEN) /HPF Urine WBC Clumps Moderate Ur Squamous Epith Cells Not seen (NEGATIVE) /HPF Amorphous Sediment Few Urine Bacteria Few H (NEGATIVE) /HPF Urine Mucus Few H (NEGATIVE) /LPF 09/19/17 09/19/17 09/19/17 Range/Units 20:38 20:38 20:38 WBC (4.0-10.0) x10^3/uL RBC (4.5-6.0) x10^6/uL Hgb (14.0-18.0) g/dL Hct (40.0-52.0) % MCV (78.0-93.0) fL MCH (26.0-32.0) pg MCHC (32.0-36.0) g/dL RDW Coeff of Lety (10.0-15.0) % Plt Count (130-400) x10^3/uL Add Manual Diff Neutrophils % (Manual) (50-80) % Band Neutrophils % (0-6) % Lymphocytes % (Manual) (25-50) % Atypical Lymphs % (0) % Monocytes % (Manual) (2-11) % Basophils % (Manual) (0-1) % Myelocytes % (0) % Platelet Estimate Macrocytosis PT 21.6 H (9.6-11.4) SEC INR 2.1 (2.0-3.5) Sodium 138 (136-145) mmol/L Potassium 4.0 (3.5-5.1) mmol/L Chloride 102 (98-107) mmol/L Carbon Dioxide 27 (21-32) mmol/L Anion Gap 13.0 (10-20) mmol/L BUN 24 H (7-18) mg/dL Creatinine 1.5 H (0.70-1.30) mg/dL Est Cr Clr Drug Dosing 40.24 mL/min Estimated GFR (MDRD) 45 Glucose 117 H (74-106) mg/dL Lactic Acid (0.4-2.0) mmol/L Calcium 9.3 (8.5-10.1) mg/dL Corrected Calcium 9.54 (8.5-10.1) mg/dL Magnesium 2.0 (1.8-2.4) mg/dL Total Bilirubin 0.7 (0.2-1.0) mg/dL AST 35 (15-37) U/L ALT 40 (16-63) U/L Alkaline Phosphatase 69 (46-116) U/L Troponin I < 0.017 (<=0.056) ng/mL C-Reactive Protein 1.4 H (<=0.9) mg/dL NT-Pro-B Natriuret Pep 2141 H (<=450) pg/mL Total Protein 7.0 (6.4-8.2) g/dL Albumin 3.7 (3.4-5.0) g/dL Globulin 3.3 g/dL Albumin/Globulin Ratio 1.12 Urine Color (YELLOW) Urine Appearance (CLEAR) Urine pH (5.0-8.0) Ur Specific [place] Urine Protein (NEGATIVE) mg/dL Urine Glucose (UA) (NEGATIVE) mg/dL Urine Ketones (NEGATIVE) mg/dL Urine Occult Blood (NEGATIVE) Urine Nitrite (NEGATIVE) Urine Bilirubin (NEGATIVE) Urine Urobilinogen (0.2) EU/dL Ur Leukocyte Esterase (NEGATIVE) Urine RBC (NOT SEEN) /HPF Urine WBC (NOT SEEN) /HPF Urine WBC Clumps Ur Squamous Epith Cells (NEGATIVE) /HPF Amorphous Sediment Urine Bacteria (NEGATIVE) /HPF Urine Mucus (NEGATIVE) /LPF 09/20/17 09/20/17 09/20/17 Range/Units 09:02 09:02 09:02 WBC 7.8 (4.0-10.0) x10^3/uL RBC 4.20 L (4.5-6.0) x10^6/uL Hgb 14.3 (14.0-18.0) g/dL Hct 43.8 (40.0-52.0) % MCV 104.3 H (78.0-93.0) fL MCH 34.0 H (26.0-32.0) pg MCHC 32.6 (32.0-36.0) g/dL RDW Coeff of Lety 13.5 (10.0-15.0) % Plt Count 173 (130-400) x10^3/uL Add Manual Diff Neutrophils % (Manual) (50-80) % Band Neutrophils % (0-6) % Lymphocytes % (Manual) (25-50) % Atypical Lymphs % (0) % Monocytes % (Manual) (2-11) % Basophils % (Manual) (0-1) % Myelocytes % (0) % Platelet Estimate Macrocytosis PT 17.8 H (9.6-11.4) SEC INR 1.7 L (2.0-3.5) Sodium (136-145) mmol/L Potassium (3.5-5.1) mmol/L Chloride (98-107) mmol/L Carbon Dioxide (21-32) mmol/L Anion Gap (10-20) mmol/L BUN (7-18) mg/dL Creatinine (0.70-1.30) mg/dL Est Cr Clr Drug Dosing mL/min Estimated GFR (MDRD) Glucose (74-106) mg/dL Lactic Acid (0.4-2.0) mmol/L Calcium (8.5-10.1) mg/dL Corrected Calcium (8.5-10.1) mg/dL Magnesium 2.0 (1.8-2.4) mg/dL Total Bilirubin (0.2-1.0) mg/dL AST (15-37) U/L ALT (16-63) U/L Alkaline Phosphatase (46-116) U/L Troponin I < 0.017 (<=0.056) ng/mL C-Reactive Protein (<=0.9) mg/dL NT-Pro-B Natriuret Pep (<=450) pg/mL Total Protein (6.4-8.2) g/dL Albumin (3.4-5.0) g/dL Globulin g/dL Albumin/Globulin Ratio Urine Color (YELLOW) Urine Appearance (CLEAR) Urine pH (5.0-8.0) Ur Specific [place] Urine Protein (NEGATIVE) mg/dL Urine Glucose (UA) (NEGATIVE) mg/dL Urine Ketones (NEGATIVE) mg/dL Urine Occult Blood (NEGATIVE) Urine Nitrite (NEGATIVE) Urine Bilirubin (NEGATIVE) Urine Urobilinogen (0.2) EU/dL Ur Leukocyte Esterase (NEGATIVE) Urine RBC (NOT SEEN) /HPF Urine WBC (NOT SEEN) /HPF Urine WBC Clumps Ur Squamous Epith Cells (NEGATIVE) /HPF Amorphous Sediment Urine Bacteria (NEGATIVE) /HPF Urine Mucus (NEGATIVE) /LPF Med Orders - Current: Current Medications Acetaminophen (Tylenol) 650 mg PO Q4H PRN PRN Reason: Pain (Mild 1-3)/fever Albuterol (Proventil Neb Soln) 2.5 mg NEB BIDRT [facility] Last Admin: 09/20/17 06:50 Dose: 2.5 mg Allopurinol (Zyloprim) 300 mg PO DAILY [facility] Last Admin: 09/20/17 08:06 Dose: 300 mg Bisacodyl (Dulcolax) 5 mg PO DAILY PRN PRN Reason: Constipation Cranberry (Cranberry) 500 mg PO DAILY [facility] Last Admin: 09/20/17 08:06 Dose: 500 mg Diltiazem HCl (Cardizem Cd) 180 mg PO DAILY [facility] Last Admin: 09/20/17 08:06 Dose: 180 mg Ciprofloxacin/Dextrose 400 mg/ (Premix) 200 mls @ 200 mls/hr IV Q12H [facility] Last Admin: 09/20/17 11:45 Dose: 200 mls/hr Ipratropium [place] (Atrovent) 0.5 mg INH Q6H [facility] Last Admin: 09/20/17 11:47 Dose: Not Given Lactulose (Cephulac) 20 gm PO TID PRN PRN Reason: constipation Magnesium Oxide (Magnesium Oxide) 400 mg PO DAILY [facility] Last Admin: 09/20/17 11:45 Dose: 400 mg Metoprolol Succinate (Toprol Xl) 25 mg PO DAILY@1999 [facility] Last Admin: 09/20/17 00:35 Dose: 25 mg Mometasone Furoate/Formoterol Fumar (Dulera 200-5 Mcg) 2 puff IH BIDRT [facility] Last Admin: 09/20/17 06:52 Dose: 2 puff Omeprazole (Omeprazole) 20 mg PO ACBREAKFAST [facility] Last Admin: 09/20/17 11:45 Dose: 20 mg Prednisone (Prednisone) 10 mg PO ONETIME ONE Stop: 09/20/17 12:38 Senna/Docusate Sodium (Senna Plus) 1 tab PO BID@0700,1700 [facility] Last Admin: 09/20/17 06:49 Dose: 1 tab Sodium Chloride (Saline Flush) 10 ml FLUSH ASDIRECTED PRN PRN Reason: Keep Vein Open Warfarin Sodium (Coumadin) 5 mg PO SuTuWeThSa@1999 [facility] Last Admin: 09/20/17 00:36 Dose: 5 mg Warfarin Sodium (Coumadin) 2.5 mg PO MoFr@1999 [facility] Discontinued Medications Ceftriaxone Sodium (Rocephin) 1 gm IVPUSH STAT ONE Stop: 09/19/17 20:57 Last Admin: 09/19/17 21:01 Dose: 1 gm Lactobacillus Rhamnosus (Culturelle) 1 cap PO DAILY@1100 [facility] Non-Formulary Medication (D-Mannose [D-Mannose]) 1 tab PO BID@0700,1700 [facility] Last Admin: 09/20/17 10:49 Dose: Not Given Comments:: Pt in NAd at rest has difficulty getting up from bed- has to try twice and then almost tips over walker. Pt is quite dypsneic just walking a few steps in room. Lungs: increased respiratory phase but no rales, some wheezing EXT: no edema - Problem List Review Problem List Initiated/Reviewed/Updated: Yes - My Orders Last 24 Hours: My Active Orders 09/19/17 21:43 Admission Status [Patient Status] [ADT] Routine 09/19/17 22:54 Patient Status [ADT] Routine Height and Weight [RC] 07 Oxygen Therapy [RC] 08,20 Vital Signs [RC] 02,06,10,14,18,22 Acetaminophen [Tylenol] 650 mg PO Q4H PRN Resuscitation Status Routine 09/19/17 22:56 Cardiac Monitoring [RC] 02,06,10,14,18,22 09/19/17 23:03 Bisacodyl [Dulcolax] 5 mg PO DAILY PRN 09/19/17 23:45 Metoprolol Succinate [Toprol XL] 25 mg PO DAILY@199909/20/17 00:00 Ciprofloxacin in D5W [Cipro in D5W 400 MG/200 ML] 400 mg Premix Bag 1 bag IV Q12H 09/20/17 00:15 Warfarin [Coumadin] 5 mg PO SuTuWeThSa@199909/20/17 06:00 Ipratropium [Atrovent] 0.5 mg INH Q6H 09/20/17 07:00 Albuterol [Proventil Neb Soln] 2.5 mg NEB BIDRT Docusate Sodium/Sennosides [Senna Plus] 1 tab PO BID@0700,1700 Mometasone/Formoterol [Dulera 200-5 MCG] 2 puff IH BIDRT 09/20/17 08:00 Allopurinol [Zyloprim] 300 mg PO DAILY Cranberry 500 mg PO DAILY Diltiazem [Cardizem CD] 180 mg PO DAILY 09/20/17 09:15 Magnesium Oxide 400 mg PO DAILY 09/20/17 09:45 Lactulose [Cephulac] 20 gm PO TID PRN Omeprazole 20 mg PO ACBREAKFAST 09/20/17 12:37 predniSONE 10 mg PO ONETIME ONE 09/20/17 Breakfast 2 Gram Sodium Diet [DIET] 09/21/17 20:00 Warfarin [Coumadin] 2.5 mg PO MoFr@1999 - Plan Plan:: Assessment and Plan: 1. Fever:a febrile, WBC down , no urine culture resputs yet, will switch to po cipro in AM 2. COPD: Pt had declined ipatropium inhalant, wanted to wait for spiriva from home. pt now willing to take ipratropium; also will give 10 mg prednisone now and ask PCP to clarify as to whether he is on chronic steroid in AM. 3. Weakness pot is clearly a fall risk and in need of assistence 4. Anticoagulation: may need 5.0 mg in AM instead of scheduled 2.5 mg
[2017-09-20] MEDS ORDERED: Warfarin 5 MG Tab PO SCH (17:00)
[2017-09-20] MEDS: Sodium Chloride 0.9% 10 ML Syringe FLUSH PRN (23:25)
[2017-09-21] MEDS: Formoterol/Mometasone 200-5 MCG 8.8 GM Inhaler IH SCH ×2 (06:29→20:34)
[2017-09-21] MEDS: Ipratropium 0.02% 0.5 MG/2.5 ML Neb Soln INH SCH ×2 (06:31→12:50)
[2017-09-21] MEDS: Omeprazole 20 MG Cap.CR PO SCH (06:31)
[2017-09-21] MEDS: Albuterol 0.083% 2.5 MG/3 ML Neb Soln NEB SCH (07:12)
[2017-09-21] MEDS: Diltiazem 180 MG Cap.CD PO SCH (08:03)
[2017-09-21] MEDS: Allopurinol 300 MG Tab PO SCH (08:04)
[2017-09-21] MEDS: Magnesium Oxide 400 MG Tab PO SCH (08:04)
[2017-09-21] MEDS: Cranberry 500 MG Cap PO SCH (08:04)
--- NOTE | 2017-09-21 10:22 | PCM.PN ---
- General Info Date of Service: 09/21/17 Subjective Update: Patient is feeling better this morning. Has been up and around his room without significant issue. Feels his urine is looking more clear as well. Denies fever since admission. No abdominal pain. Shortness of breath is at baseline this morning. No chest pain or significant cough. - Review of Systems General: Reports: No Symptoms HEENT: Reports: No Symptoms Pulmonary: Reports: No Symptoms Cardiovascular: Reports: No Symptoms Gastrointestinal: Reports: No Symptoms Genitourinary: Reports: No Symptoms Musculoskeletal: Reports: No Symptoms Skin: Reports: No Symptoms - Patient Data Vitals - Most Recent: Last Vital Signs Temp 36.6 C 09/21/17 09:43 Pulse 76 09/21/17 09:43 Resp 22 H 09/21/17 06:00 BP 125/76 09/21/17 09:43 Pulse Ox 97 09/21/17 07:16 Weight - Most Recent: 99.337 kg I&O - Last 24 Hours: Intake & Output 09/20/17 09/21/17 09/21/17 22:59 06:59 14:59 Intake Total 550 240 Output Total 850 1600 Balance -850 -1050 240 Lab Results Last 24 Hours: Laboratory Results - last 24 hr 09/21/17 Range/Units 06:38 PT 16.9 H (9.6-11.4) SEC INR 1.6 L (2.0-3.5) Joce Results Last 24 Hours: Microbiology 09/19/17 20:19 Urine Culture - Preliminary Urine, Urostromy Gram Negative Rods Gram Negative Rods#2 09/19/17 20:47 Aerobic Blood Culture - Preliminary Blood - Venous - Lab Draw NO GROWTH AFTER 1 DAY Anaerobic Blood Culture - Preliminary NO GROWTH AFTER 1 DAY 09/19/17 20:38 Aerobic Blood Culture - Preliminary Blood - Venous NO GROWTH AFTER 1 DAY Anaerobic Blood Culture - Preliminary NO GROWTH AFTER 1 DAY Med Orders - Current: Current Medications Acetaminophen (Tylenol) 650 mg PO Q4H PRN PRN Reason: Pain (Mild 1-3)/fever Albuterol (Proventil Neb Soln) 2.5 mg NEB BIDRT [facility] Last Admin: 09/21/17 07:12 Dose: 2.5 mg Allopurinol (Zyloprim) 300 mg PO DAILY [facility] Last Admin: 09/21/17 08:04 Dose: 300 mg Bisacodyl (Dulcolax) 5 mg PO DAILY PRN PRN Reason: Constipation Ciprofloxacin (Ciprofloxacin Hcl) 500 mg PO Q12H [facility] Cranberry (Cranberry) 500 mg PO DAILY [facility] Last Admin: 09/21/17 08:04 Dose: 500 mg Diltiazem HCl (Cardizem Cd) 180 mg PO DAILY [facility] Last Admin: 09/21/17 08:03 Dose: 180 mg Ipratropium [place] (Atrovent) 0.5 mg INH Q6H [facility] Last Admin: 09/21/17 06:31 Dose: 0.5 mg Lactulose (Cephulac) 20 gm PO TID PRN PRN Reason: constipation Magnesium Oxide (Magnesium Oxide) 400 mg PO DAILY [facility] Last Admin: 09/21/17 08:04 Dose: 400 mg Metoprolol Succinate (Toprol Xl) 25 mg PO DAILY@1999 [facility] Last Admin: 09/20/17 20:32 Dose: 25 mg Mometasone Furoate/Formoterol Fumar (Dulera 200-5 Mcg) 2 puff IH BIDRT [facility] Last Admin: 09/21/17 06:29 Dose: 2 puff Omeprazole (Omeprazole) 20 mg PO ACBREAKFAST [facility] Last Admin: 09/21/17 06:31 Dose: 20 mg Senna/Docusate Sodium (Senna Plus) 1 tab PO BID@0700,1700 [facility] Last Admin: 09/21/17 06:31 Dose: 1 tab Sodium Chloride (Saline Flush) 10 ml FLUSH ASDIRECTED PRN PRN Reason: Keep Vein Open Last Admin: 09/20/17 23:25 Dose: 10 ml Warfarin Sodium (Coumadin) 5 mg PO SuTuWeThSa@1999 [facility] Last Admin: 09/20/17 20:32 Dose: 5 mg Warfarin Sodium (Coumadin) 5 mg PO ONETIME ONE Stop: 09/21/17 20:01 Discontinued Medications Ceftriaxone Sodium (Rocephin) 1 gm IVPUSH STAT ONE Stop: 09/19/17 20:57 Last Admin: 09/19/17 21:01 Dose: 1 gm Ciprofloxacin/Dextrose 400 mg/ (Premix) 200 mls @ 200 mls/hr IV Q12H [facility] Last Admin: 09/20/17 23:23 Dose: 200 mls/hr Lactobacillus Rhamnosus (Culturelle) 1 cap PO DAILY@1100 [facility] Non-Formulary Medication (D-Mannose [D-Mannose]) 1 tab PO BID@0700,1700 [facility] Last Admin: 09/20/17 10:49 Dose: Not Given Prednisone (Prednisone) 10 mg PO ONETIME ONE Stop: 09/20/17 12:38 Last Admin: 09/20/17 12:55 Dose: 10 mg Warfarin Sodium (Coumadin) 2.5 mg PO MoFr@1999 [facility] - Exam General: Alert, Cooperative, No Acute Distress HEENT: Mucous Membr. Moist/[place] Neck: Supple, Trachea Midline, No Thyromegaly. No: Lymphadenopathy Lungs: Clear to Auscultation, Normal Respiratory Effort Cardiovascular: Regular Rate, No Murmurs, Irregular Rhythm GI/Abdominal Exam: Normal Bowel Sounds, Soft, No Organomegaly, No Distention, No Mass Extremities: Non-Tender, No Pedal Edema, Normal Capillary Refill Peripheral Pulses: 2+: Radial (L), Radial (R) Skin: Warm, Dry, Intact - Problem List & Annotations (1) UTI (urinary tract infection) SNOMED Code(s): 14593159 Code(s): N39.0 - URINARY TRACT INFECTION, SITE NOT SPECIFIED Status: Acute Current Visit: Yes Qualifiers: Urinary tract infection type: site unspecified Hematuria presence: without hematuria Qualified Code(s): N39.0 - Urinary tract infection, site not specified (2) Recurrent UTI SNOMED Code(s): 831395527 Code(s): N39.0 - URINARY TRACT INFECTION, SITE NOT SPECIFIED Status: Acute Current Visit: No (3) COPD (chronic obstructive pulmonary disease) SNOMED Code(s): 53063580 Code(s): J44.9 - CHRONIC OBSTRUCTIVE PULMONARY DISEASE, UNSPECIFIED Status : Chronic Current Visit: No Qualifiers: (4) Diastolic heart failure SNOMED Code(s): 250882350 Code(s): I50.30 - UNSPECIFIED DIASTOLIC (CONGESTIVE) HEART FAILURE Status: Chronic Current Visit: No Qualifiers: (5) Chronic atrial fibrillation SNOMED Code(s): 028430888 Code(s): I48.2 - CHRONIC ATRIAL FIBRILLATION Status: Chronic Current Visit: No (6) Chronic kidney disease SNOMED Code(s): 345486862 Code(s): N18.9 - CHRONIC KIDNEY DISEASE, UNSPECIFIED Status: Chronic Current Visit: No Qualifiers: - Problem List Review Problem List Initiated/Reviewed/Updated: Yes - My Orders Last 24 Hours: My Active Orders 09/21/17 12:00 Ciprofloxacin [Ciprofloxacin HCl] 500 mg PO Q12H 09/21/17 20:00 Warfarin [Coumadin] 5 mg PO ONETIME ONE 09/22/17 05:11 BASIC METABOLIC PANEL,BMP [CHEM] Routine CBC WITH AUTO DIFF [HEME] Routine - Assessment Assessment:: 82 yo male admitted with generalized weakness presumed to be secondary to UTI. Feeling much better this am. - Plan Plan:: #1 UTI #2 Recurrent UTI - Urine culture is growing gram negative rods. Blood cultures negative thus far. 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 - No other signs of infection and patient did have a true fever this time though. - Will treat with a 7 day course of ciprofloxacin given this is a complicated UTI. - Hold cephalexin prophylaxis until ciprofloxacin course is completed. - Continue cranberry and routine follow-up with ID. #3 Generalized Weakness - Improving as is typical with treatment of his UTI's. - He is hesitant to consider swing bed again this time. - PT will evaluate today and then we will discuss further if they feel he would benefit from swing bed again. #4 COPD - Had increased shortness of breath yesterday but is back to normal today. - Is not on chronic prednisone and would not do further dosing given rapid improvement. - Continue home inhalers. #5 CHF - Patient's lasix has been held given concerns for dehydration. - Note he follows a fine line with the lasix in terms of his hydration status and avoiding CHF exacerbation. Last attempt at dose reduction in his lasix resulted in admission for CHF exacerbation. - No evidence of fluid overload today. - Will recheck labs in the am. - He will need to have his lasix restarted upon homegoing given recent history as noted above. #6 Atrial fibrillation - Rates have been appropriate. Continue metoprolol and diltiazem. - INR 1.6 today. - Will give 5 mg of warfarin tonight instead of 2.5 mg. - Note that the ciprofloxacin could raise INR but has not traditionally done so for him. - Will recheck INR tomorrow. #7 Chronic Kidney Disease - Creatinine at baseline on admission. - Recheck tomorrow am. Patient is not prepared for dismissal yet. Likely would benefit from swing bed but is not really willing to consider this. Will see what PT says today. Otherwise, he will be transitioned to PO antibiotics today. If that goes ok and PT does not feel he would qualify for swing bed, then he will be dismissed tomorrow. INR slightly subtherapeutic at 1.6 but no further VTE prophylaxis needed as long as >1.5. Will recheck INR tomorrow. Patient is DNR.
[2017-09-21] MEDS: Ciprofloxacin 500 MG Tab PO SCH (11:58)
[2017-09-21] MEDS ORDERED: Warfarin 2.5 MG Tab PO SCH (20:00)
[2017-09-21] MEDS ORDERED: Warfarin 5 MG Tab PO ONE (20:00)
[2017-09-21] MEDS: Albuterol/Ipratropium 3.0-0.5 MG/3 ML Neb Soln NEB SCH (20:34)
[2017-09-21] MEDS: Sodium Chloride 0.9% 10 ML Syringe FLUSH PRN (20:36)
[2017-09-21] MEDS: Metoprolol Succinate 25 MG Tab.ER PO SCH (20:37)
[2017-09-22] MEDS: Ciprofloxacin 500 MG Tab PO SCH ×2 (00:13→11:47)
[2017-09-22] MEDS: Ipratropium 0.02% 0.5 MG/2.5 ML Neb Soln INH SCH (00:13)
[2017-09-22 05:45] VITALS: BP 126/54
[2017-09-22] MEDS: Formoterol/Mometasone 200-5 MCG 8.8 GM Inhaler IH SCH (06:10)
[2017-09-22] MEDS: Omeprazole 20 MG Cap.CR PO SCH (06:10)
[2017-09-22] MEDS: Albuterol/Ipratropium 3.0-0.5 MG/3 ML Neb Soln NEB SCH (06:55)
[2017-09-22 07:35] LABS: ANION GAP 13.2 mmol/L (10-20)
[2017-09-22] MEDS: Cranberry 500 MG Cap PO SCH (08:06)
[2017-09-22] MEDS: Allopurinol 300 MG Tab PO SCH (08:06)
[2017-09-22] MEDS: Diltiazem 180 MG Cap.CD PO SCH (08:07)
[2017-09-22] MEDS: Magnesium Oxide 400 MG Tab PO SCH (08:07)
--- NOTE | 2017-09-22 08:52 | PCM.DCSUM1 ---
Discharge Summary - Hospital Course Brief History: Mr. Aragon is an 82 yo male admitted with a UTI after presenting to the ER for evaluation of generalized weakness. - Discharge Data Discharge Date: 09/22/17 Discharge Disposition: Home, Self-Care 01 Condition: Good - Discharge Diagnosis/Problem(s) (1) UTI (urinary tract infection) SNOMED Code(s): 82395131 ICD Code: N39.0 - URINARY TRACT INFECTION, SITE NOT SPECIFIED Status: Acute Current Visit: Yes Qualifiers: Urinary tract infection type: site unspecified Hematuria presence: without hematuria Qualified Code(s): N39.0 - Urinary tract infection, site not specified (2) Recurrent UTI SNOMED Code(s): 725113472 ICD Code: N39.0 - URINARY TRACT INFECTION, SITE NOT SPECIFIED Status: Chronic Current Visit: No (3) COPD (chronic obstructive pulmonary disease) SNOMED Code(s): 45295811 ICD Code: J44.9 - CHRONIC OBSTRUCTIVE PULMONARY DISEASE, UNSPECIFIED Status : Chronic Current Visit: No Qualifiers: (4) Diastolic heart failure SNOMED Code(s): 294162469 ICD Code: I50.30 - UNSPECIFIED DIASTOLIC (CONGESTIVE) HEART FAILURE Status : Chronic Current Visit: No Qualifiers: (5) Chronic atrial fibrillation SNOMED Code(s): 185844550 ICD Code: I48.2 - CHRONIC ATRIAL FIBRILLATION Status: Chronic Current Visit: No (6) Chronic kidney disease SNOMED Code(s): 663481174 ICD Code: N18.9 - CHRONIC KIDNEY DISEASE, UNSPECIFIED Status: Chronic Current Visit: No Qualifiers: - Patient Summary/Data Operative Procedure(s) Performed: none Complications: none Consults: Consultations 09/20/17 12:49 Consult to Physical Therapy [PT Evaluation and Treatment] [CONS] Routine Labs Pending at D/C: none Recommended Follow-up Testing/Procedures: none Planned Operative Procedure(s) after DC: none Hospital Course: He was started on IV and then transitioned to PO ciprofloxacin for presumed UTI. The remainder of his work-up for causes of generalized weakness was negative. His strength progressively improved each hospital day. He was evaluated by PT yesterday and they did not feel he would qualify for swing bed at this time. On hospital day #2, he did experience some shortness of breath and was given a 1 time dose of prednisone; this was also in the setting of not having all of his usual inhalers. He did not require any additional prednisone and his breathing returned to baseline. His lasix was also held due to him appearing slightly dehydrated on admission; this will be restarted on discharge given patient's previous difficulty with CHF exacerbations and admission for this whenever his lasix dose is changed even slightly. His INR was slightly subtherapeutic through most of his stay but is back up to 2.0 today. His hospitalization was otherwise uncomplicated. He feels his strength is back to normal and he is prepared for discharge home today. He will complete a total of 5 days of antibiotics and will follow-up in clinic with me in 1 week. - Patient Instructions Diet: Usual Diet as Tolerated Activity: As Tolerated - Discharge Plan Prescriptions/Med Rec: Ciprofloxacin HCl [Cipro] 500 mg PO BID #3 tablet Warfarin [Coumadin] 2.5 mg PO MOFR #1 tab Home Medications: Home Meds Allopurinol [Zyloprim] 300 mg PO DAILY 09/10/14 [History] Tiotropium [Spiriva HandiHaler] 1 puff PO DAILY@0700 12/24/14 [History] Magnesium Oxide [Magnesium] 500 mg PO DAILY 01/26/16 [History] Diltiazem HCl [Cartia Xt] 180 mg PO DAILY 07/04/16 [History] Bisacodyl [Dulcolax] 5 mg PO DAILY PRN 07/07/16 [History] Docusate Sodium/Sennosides [Senna Plus] 1 tab PO BID@0700,1700 07/07/16 [History ] Albuterol [Proventil Neb Soln] 2.5 mg NEB BID 09/09/16 [History] Budesonide/Formoterol [Symbicort 160-4.5 MCG] 2 puff INH BID 09/09/16 [History] Cranberry Extract [Cranberry] 500 mg PO DAILY 09/09/16 [History] Lactobacillus Combination No.4 [Probiotic] 1 cap PO DAILY@1100 09/09/16 [History ] Lactulose [Generlac] 30 ml PO TID PRN 09/09/16 [History] Multivitamin [Multi-Vitamin Daily] 1 each PO DAILY 09/09/16 [History] D-Mannose 1 tab PO BID@0700,1700 04/26/17 [History] Furosemide [Lasix] 40 mg PO BID@0700,199904/27/17 [History] Metoprolol Succinate [Toprol XL] 25 mg PO DAILY@199904/27/17 [History] Warfarin [Coumadin] 5 mg PO DAILY@1700 04/27/17 [History] Omeprazole 20 mg PO DAILY 04/30/17 [History] Potassium Chloride 10 meq PO DAILY 04/30/17 [History] Cephalexin 1 tab PO DAILY 06/06/17 [History] Patient's Own Medication [Ptom] 0 each INH BID each 06/10/17 [Rx] Acetaminophen [Tylenol Extra Strength] 1,000 mg PO Q6H PRN 09/19/17 [History] Ciprofloxacin HCl [Cipro] 500 mg PO BID #3 tablet 09/22/17 [Rx] Warfarin [Coumadin] 2.5 mg PO MOFR #1 tab 09/22/17 [Rx] Forms: ED Department Discharge Referrals: Larisa Ellsworth MD [Primary Care Provider] - 09/29/17 3:40 pm (You have a follow up appt. with Dr. Chasity Ellsworth on September 29, 2017 at 3:40--[facility] ) - Discharge Summary/Plan Comment DC Time >30 min.: No - General Info Date of Service: 09/22/17 Subjective Update: Feeling well this morning and hopeful for dismissal home. He walked around the hallways yesterday without any issues. Feels his strength is back to normal. No chest pain, increase in cough, or increase in shortness of breath. Note written by overnight nurse is not in relation to this patient. Urine output has been good. - Review of Systems General: Reports: No Symptoms HEENT: Reports: No Symptoms Pulmonary: Reports: No Symptoms Cardiovascular: Reports: No Symptoms Gastrointestinal: Reports: No Symptoms Genitourinary: Reports: No Symptoms Musculoskeletal: Reports: No Symptoms Skin: Reports: No Symptoms - Patient Data Vitals - Most Recent: Last Vital Signs Temp 36.8 C 09/22/17 05:42 Pulse 74 09/22/17 05:42 Resp 21 H 09/22/17 05:42 BP 126/54 L 09/22/17 05:42 Pulse Ox 96 09/22/17 06:56 Weight - Most Recent: 100.153 kg I&O - Last 24 hours: Intake & Output 09/21/17 09/22/17 09/22/17 22:59 06:59 14:59 Intake Total 420 500 360 Output Total 700 Balance -280 500 360 Lab Results - Last 24 hrs: Laboratory Results - last 24 hr 09/22/17 09/22/17 09/22/17 Range/Units 06:19 06:19 06:19 WBC 8.3 (4.0-10.0) x10^3/uL RBC 4.07 L (4.5-6.0) x10^6/uL Hgb 14.0 (14.0-18.0) g/dL Hct 42.2 (40.0-52.0) % MCV 103.7 H (78.0-93.0) fL MCH 34.4 H (26.0-32.0) pg MCHC 33.2 (32.0-36.0) g/dL RDW Coeff of Lety 13.5 (10.0-15.0) % Plt Count 179 (130-400) x10^3/uL Add Manual Diff Yes Neutrophils % (Manual) 48 L (50-80) % Band Neutrophils % 8 H (0-6) % Lymphocytes % (Manual) 39 (25-50) % Monocytes % (Manual) 3 (2-11) % Eosinophils % (Manual) 2 (0-4) % Platelet Estimate Adequate PT 20.5 H (9.6-11.4) SEC INR 2.0 (2.0-3.5) Sodium 140 (136-145) mmol/L Potassium 4.2 (3.5-5.1) mmol/L Chloride 105 (98-107) mmol/L Carbon Dioxide 26 (21-32) mmol/L Anion Gap 13.2 (10-20) mmol/L BUN 32 H (7-18) mg/dL Creatinine 1.5 H (0.70-1.30) mg/dL Est Cr Clr Drug Dosing 40.24 mL/min Estimated GFR (MDRD) 45 Glucose 93 (74-106) mg/dL Calcium 8.9 (8.5-10.1) mg/dL KIERRA Results - Last 24 hrs: Microbiology 09/19/17 20:19 Urine Culture - Final Urine, Urostromy Pseudomonas Aeruginosa Pseudomonas Aeruginosa#2 09/19/17 20:47 Aerobic Blood Culture - Preliminary Blood - Venous - Lab Draw NO GROWTH AFTER 2 DAYS Anaerobic Blood Culture - Preliminary NO GROWTH AFTER 2 DAYS 09/19/17 20:38 Aerobic Blood Culture - Preliminary Blood - Venous NO GROWTH AFTER 2 DAYS Anaerobic Blood Culture - Preliminary NO GROWTH AFTER 2 DAYS Med Orders - Current: Current Medications Acetaminophen (Tylenol) 650 mg PO Q4H PRN PRN Reason: Pain (Mild 1-3)/fever Albuterol/Ipratropium (Duoneb 3.0-0.5 Mg/3 Ml) 3 ml NEB BIDRT [facility] Last Admin: 09/22/17 06:55 Dose: 3 ml Allopurinol (Zyloprim) 300 mg PO DAILY [facility] Last Admin: 09/22/17 08:06 Dose: 300 mg Bisacodyl (Dulcolax) 5 mg PO DAILY PRN PRN Reason: Constipation Ciprofloxacin (Ciprofloxacin Hcl) 500 mg PO Q12H [facility] Last Admin: 09/22/17 00:13 Dose: 500 mg Cranberry (Cranberry) 500 mg PO DAILY [facility] Last Admin: 09/22/17 08:06 Dose: 500 mg Diltiazem HCl (Cardizem Cd) 180 mg PO DAILY [facility] Last Admin: 09/22/17 08:07 Dose: 180 mg Ipratropium [place] (Atrovent) 0.5 mg INH BID@0000,1300 [facility] Last Admin: 09/22/17 00:13 Dose: Not Given Lactulose (Cephulac) 20 gm PO TID PRN PRN Reason: constipation Magnesium Oxide (Magnesium Oxide) 400 mg PO DAILY [facility] Last Admin: 09/22/17 08:07 Dose: 400 mg Metoprolol Succinate (Toprol Xl) 25 mg PO DAILY@1999 [facility] Last Admin: 09/21/17 20:37 Dose: 25 mg Mometasone Furoate/Formoterol Fumar (Dulera 200-5 Mcg) 2 puff IH BIDRT [facility] Last Admin: 09/22/17 06:10 Dose: 2 puff Omeprazole (Omeprazole) 20 mg PO ACBREAKFAST [facility] Last Admin: 09/22/17 06:10 Dose: 20 mg Senna/Docusate Sodium (Senna Plus) 1 tab PO BID@0700,1700 [facility] Last Admin: 09/22/17 06:10 Dose: 1 tab Sodium Chloride (Saline Flush) 10 ml FLUSH ASDIRECTED PRN PRN Reason: Keep Vein Open Last Admin: 09/21/17 20:36 Dose: 10 ml Warfarin Sodium (Coumadin) 5 mg PO SuTuWeThSa@1999 [facility] Last Admin: 09/20/17 20:32 Dose: 5 mg Discontinued Medications Albuterol (Proventil Neb Soln) 2.5 mg NEB BIDRT [facility] Last Admin: 09/21/17 07:12 Dose: 2.5 mg Ceftriaxone Sodium (Rocephin) 1 gm IVPUSH STAT ONE Stop: 09/19/17 20:57 Last Admin: 09/19/17 21:01 Dose: 1 gm Ciprofloxacin/Dextrose 400 mg/ (Premix) 200 mls @ 200 mls/hr IV Q12H [facility] Last Admin: 09/20/17 23:23 Dose: 200 mls/hr Ipratropium [place] (Atrovent) 0.5 mg INH Q6H [facility] Last Admin: 09/21/17 06:31 Dose: 0.5 mg Lactobacillus Rhamnosus (Culturelle) 1 cap PO DAILY@1100 [facility] Non-Formulary Medication (D-Mannose [D-Mannose]) 1 tab PO BID@0700,1700 [facility] Last Admin: 09/20/17 10:49 Dose: Not Given Prednisone (Prednisone) 10 mg PO ONETIME ONE Stop: 09/20/17 12:38 Last Admin: 09/20/17 12:55 Dose: 10 mg Warfarin Sodium (Coumadin) 2.5 mg PO MoFr@1999 [facility] Warfarin Sodium (Coumadin) 5 mg PO ONETIME ONE Stop: 09/21/17 20:01 Last Admin: 09/21/17 20:33 Dose: 5 mg - Exam General: Reports: Alert, Cooperative, No Acute Distress HEENT: Reports: Mucous Membr. Moist/Blum Neck: Reports: Supple, Trachea Midline, No Thyromegaly. Denies: Lymphadenopathy Lungs: Reports: Clear to Auscultation, Normal Respiratory Effort Cardiovascular: Reports: Regular Rate, No Murmurs, Irregular Rhythm GI/Abdominal Exam: Normal Bowel Sounds, Soft, Non-Tender, No Organomegaly, No Distention, No Mass Extremities: Non-Tender, No Pedal Edema, Normal Capillary Refill Skin: Reports: Warm, Dry, Intact *Q Meaningful Use (DIS) - VTE *Q VTE Pharmacological Contraindications *Q: High INR Value (on warfarin for afib already)
== END 2017-09-22 11:55 | disposition home or self-care (01) | DRG 690 ==
LOC: VM.ED 19:51 → VM.MS 21:43
PROVIDERS: ADMIT Internal Medicine; ATTEND Family Medicine
DX: N39.0 Urinary tract infection, site not specified (principal); I11.0 Hypertensive heart disease with heart failure; I50.9 Heart failure, unspecified; I48.91 Unspecified atrial fibrillation; I50.32 Chronic diastolic (congestive) heart failure; I13.0 Hypertensive heart and chronic kidney disease with heart failure and stage 1 through stage 4 chronic kidney disease, or unspecified chronic kidney disease; R06.02 Shortness of breath; K59.09 Other constipation; E86.0 Dehydration; E78.00 Pure hypercholesterolemia, unspecified; I48.2 Chronic atrial fibrillation; M10.9 Gout, unspecified; J44.9 Chronic obstructive pulmonary disease, unspecified; N18.9 Chronic kidney disease, unspecified; E78.5 Hyperlipidemia, unspecified; I27.20 Pulmonary hypertension, unspecified; N20.0 Calculus of kidney; I71.4 Abdominal aortic aneurysm, without rupture; G31.84 Mild cognitive impairment of uncertain or unknown etiology; Z99.81 Dependence on supplemental oxygen; Z93.2 Ileostomy status; Z85.51 Personal history of malignant neoplasm of bladder; Z79.01 Long term (current) use of anticoagulants; Z86.711 Personal history of pulmonary embolism; Z98.890 Other specified postprocedural states; Z79.899 Other long term (current) drug therapy; Z87.891 Personal history of nicotine dependence; Z87.440 Personal history of urinary (tract) infections
CPT/HCPCS: 36415; 71045; 80053; 81001; 83605; 83735; 83880; 84484; 85025; 85610; 86140; 87040 ×2; 87086; 87088 ×2; 87186 ×2; 93005; 96374; 99285; J0696; 80048; 85027; 94640; 94760; A9270-GY; J0744; J7050; J7620-GY

== ENCOUNTER 2017-10-11 12:22 | Inpatient (IN) | payer MEDICARE, BC ==
[2017-10-11] MEDS ORDERED: Sodium Chloride 0.9% 1,000 ML IV ONE (12:56)
[2017-10-11] MEDS ORDERED: cefTRIAXone 1 GM Vial IVPUSH ONE (12:56)
[2017-10-11 13:31] LABS: CHLORIDE,CL 102 mmol/L (98-107); SODIUM,NA 138 mmol/L (136-145)
[2017-10-11] MEDS ORDERED: Furosemide 40 MG/4 ML VIAL IV ONE (14:25)
--- NOTE | 2017-10-11 14:34 | EDM.PDOC ---
ED HPI GENERAL MEDICAL PROBLEM - General Chief Complaint: General Stated Complaint: ER Time Seen by Provider: 10/11/17 12:40 Source of Information: Reports: Patient, Family History Limitations: Reports: No Limitations - History of Present Illness INITIAL COMMENTS - FREE TEXT/NARRATIVE: Patient presents with complaints of generalized weakness that started last night around 7 pm. I admitted this patient in August of this year with similar symptoms and urinary tract infection. He does have a urostomy post bladder cancer surgery from the early . He additionally does have CHF. He also states he had pneumonia about 2 months ago. He denies headache, change in LOC, chest pain, abdominal pain, blood in urine or stool. He does endorse SOB, which he says is chronic. On home oxygen. Primary provider is Dr. Ellsworth at the [facility] in [place]. Onset Date: 10/10/17 Duration: Getting Worse Location: Reports: Generalized Associated Symptoms: Reports: No Other Symptoms - Related Data Allergies Allergy/AdvReac Type Severity Reaction Status Date / Time No Known Allergies Allergy Verified 10/11/17 12:47 Home Meds: Home Meds Allopurinol [Zyloprim] 300 mg PO DAILY 09/10/14 [History] Tiotropium [Spiriva HandiHaler] 1 puff PO DAILY@0700 12/24/14 [History] Magnesium Oxide [Magnesium] 500 mg PO DAILY 01/26/16 [History] Diltiazem HCl [Cartia Xt] 180 mg PO DAILY 07/04/16 [History] Bisacodyl [Dulcolax] 5 mg PO DAILY PRN 07/07/16 [History] Docusate Sodium/Sennosides [Senna Plus] 1 tab PO BID@0700,1700 07/07/16 [History ] Albuterol [Proventil Neb Soln] 2.5 mg NEB BID 09/09/16 [History] Budesonide/Formoterol [Symbicort 160-4.5 MCG] 2 puff INH BID 09/09/16 [History] Cranberry Extract [Cranberry] 500 mg PO DAILY 09/09/16 [History] Lactobacillus Combination No.4 [Probiotic] 1 cap PO DAILY@1100 09/09/16 [History ] Lactulose [Generlac] 30 ml PO TID PRN 09/09/16 [History] Multivitamin [Multi-Vitamin Daily] 1 each PO DAILY 09/09/16 [History] D-Mannose 1 tab PO BID@0700,1700 04/26/17 [History] Furosemide [Lasix] 40 mg PO BID@0700,199904/27/17 [History] Metoprolol Succinate [Toprol XL] 25 mg PO DAILY@199904/27/17 [History] Warfarin [Coumadin] 5 mg PO DAILY@1700 04/27/17 [History] Omeprazole 20 mg PO DAILY 04/30/17 [History] Potassium Chloride 10 meq PO DAILY 04/30/17 [History] cephALEXin [Cephalexin] 1 tab PO DAILY 06/06/17 [History] Patient's Own Medication [Ptom] 0 each INH BID each 06/10/17 [Rx] Acetaminophen [Tylenol Extra Strength] 1,000 mg PO Q6H PRN 09/19/17 [History] Warfarin [Coumadin] 2.5 mg PO MOFR #1 tab 09/22/17 [Rx] Past Medical History HEENT History: Reports: Hard of Hearing, Impaired Vision Cardiovascular History: Reports: Afib, Aneurysm, Heart Failure, High Cholesterol , Hypertension, Pulmonary Hypertension, Other (See Below) Other Cardiovascular History: AAA Respiratory History: Reports: COPD, PE, SOB Other Respiratory History: hypoxia, oxygen dependent Gastrointestinal History: Reports: Chronic Constipation Genitourinary History: Reports: Hydronephrosis, Renal Calculus, UTI, Recurrent Other Genitourinary History: kidney stones Musculoskeletal History: Reports: Gout, Other (See Below) Other Musculoskeletal History: collapsed vertebra, compression fracture of spine Neurological History: Reports: Other (See Below) Other Neuro History: mild cognitive impairment Psychiatric History: Reports: Other (See Below) Other Psychiatric History: adjustment disorder Endocrine/Metabolic History: Reports: None Hematologic History: Reports: Other (See Below) Other Hematologic History: coumadin therapy Immunologic History: Reports: None Oncologic (Cancer) History: Reports: Bladder Dermatologic History: Reports: Other (See Below) Other Dermatologic History: lymphadenopathy - Infectious Disease History Infectious Disease History: Reports: None - Past Surgical History HEENT Surgical History: Reports: Cataract Surgery Other HEENT Surgeries/Procedures: Unspecific Eye surgery Cardiovascular Surgical History: Reports: AAA Repair Other Cardiovascular Surgeries/Procedures: endoluminal aortic stent Respiratory Surgical History: Reports: None GI Surgical History: Reports: Hernia, Inguinal Other GI Surgeries/Procedures: Endoluminal Aortic Stent Male Surgical History: Reports: Cystectomy, TURP-Transurethral Resection of Prostate Other Male Surgeries/Procedures: UROSTOMY Dermatological Surgical History: Reports: None Social & Family History - Family History Cardiac: Reports: CAD Respiratory: Reports: None GI: Reports: None : Reports: None OBGYN: Reports: None Musculoskeletal: Reports: Arthritis Neurological: Reports: None Psychiatric: Reports: None Endocrine/Metabolic: Reports: Diabetes, type II Hematologic: Reports: None Immunologic: Reports: None Oncologic: Reports: Bladder, Breast, Colon, Skin - Tobacco Use Smoking Status *Q: Unknown Ever Smoked - Caffeine Use Caffeine Use: Reports: Coffee - Living Situation & Occupation Living situation: Reports: , Alone Occupation: Retired ED ROS GENERAL - Review of Systems Review Of Systems: See Below Constitutional: Reports: Chills, Weakness. Denies: Fever, Night Sweats HEENT: Reports: No Symptoms Respiratory: Reports: Shortness of Breath Cardiovascular: Reports: No Symptoms Endocrine: Reports: No Symptoms GI/Abdominal: Reports: No Symptoms : Reports: No Symptoms Musculoskeletal: Reports: No Symptoms Skin: Reports: No Symptoms Neurological: Reports: No Symptoms Psychiatric: Reports: No Symptoms Hematologic/Lymphatic: Reports: No Symptoms Immunologic: Reports: No Symptoms ED EXAM, GENERAL - Physical Exam Exam: See Below Exam Limited By: No Limitations General Appearance: Alert, WD/WN, No Apparent Distress Eye Exam: Bilateral Eye: EOMI, Normal Inspection, PERRL Ears: Normal TMs Nose: Normal Inspection, Normal Mucosa, No Blood Throat/Mouth: Normal Inspection, Normal Lips, Normal Teeth, Normal Gums, Normal Oropharynx, Normal Voice, No Airway Compromise Head: Atraumatic, Normocephalic Neck: Normal Inspection, Supple, Non-Tender, Full Range of Motion Respiratory/Chest: No Respiratory Distress, No Accessory Muscle Use, Decreased Breath Sounds, Rales Cardiovascular: Normal Peripheral Pulses, Regular Rate, Rhythm, No Edema, No Gallop, No JVD, No Murmur, No Rub Peripheral Pulses: 2+: Posterior Tibial (L), Posterior Tibial (R), Dorsalis Pedis (L), Dorsalis Pedis (R) GI/Abdominal: Normal Bowel Sounds, Soft, Non-Tender, No Organomegaly, No Distention, No Abnormal Bruit, No Mass, Other (urostomy ) (Male) Exam: Deferred Back Exam: Normal Inspection, Full Range of Motion, NT Extremities: Normal Inspection, Normal Range of Motion, Non-Tender, Normal Capillary Refill, No Pedal Edema Neurological: Alert, Oriented, CN II-XII Intact, Normal Cognition, Normal Gait, Normal Reflexes, No Motor/Sensory Deficits Psychiatric: Normal Affect, Normal Mood Skin Exam: Warm, Dry, Intact, Normal Color, No Rash Lymphatic: No Adenopathy Course - Vital Signs Last Recorded V/S: Last Vital Signs Temp 36.6 C 10/11/17 12:30 Pulse 95 10/11/17 12:30 Resp 20 10/11/17 12:30 BP 127/62 10/11/17 12:30 Pulse Ox 93 L 10/11/17 12:30 - Orders/Labs/Meds Orders: Active Orders 24 hr Category Date Time Status Chest 1V Frontal [CR] Stat Exams 10/11/17 12:56 Taken CULTURE BLOOD [BC] Stat Lab 10/11/17 13:16 Received CULTURE BLOOD [BC] Stat Lab 10/11/17 13:22 Received UA W/MICROSCOPIC [URIN] Stat Lab 10/11/17 13:07 Ordered Sodium Chloride 0.9% [Saline Flush] Med 10/11/17 12:56 Active 10 ml FLUSH ASDIRECTED PRN Blood Culture x2 Reflex Set [OM.PC] Stat Oth 10/11/17 12:56 Ordered Saline Lock Insert [OM.PC] Routine Oth 10/11/17 12:56 Ordered Medication Orders Sodium Chloride (Saline Flush) 10 ml FLUSH ASDIRECTED PRN PRN Reason: Keep Vein Open Labs: Laboratory Tests 10/11/17 10/11/17 10/11/17 Range/Units 13:07 13:16 13:16 WBC 7.3 (4.0-10.0) x10^3/uL RBC 4.42 L (4.5-6.0) x10^6/uL Hgb 15.5 D (14.0-18.0) g/dL Hct 44.4 (40.0-52.0) % MCV 100.5 H D (78.0-93.0) fL MCH 35.1 H (26.0-32.0) pg MCHC 34.9 (32.0-36.0) g/dL RDW Coeff of Lety 13.5 (10.0-15.0) % Plt Count 142 (130-400) x10^3/uL Neut % (Auto) 71.7 (50.0-80.0) % Lymph % (Auto) 17.7 L (25.0-50.0) % [place] % (Auto) 10.2 (2.0-11.0) % Eos % (Auto) 0.1 (0.0-4.0) % Baso % (Auto) 0.3 (0.2-1.2) % PT 20.5 H (9.6-11.4) SEC INR 2.0 (2.0-3.5) Sodium (136-145) mmol/L Potassium (3.5-5.1) mmol/L Chloride (98-107) mmol/L Carbon Dioxide (21-32) mmol/L Anion Gap (10-20) mmol/L BUN (7-18) mg/dL Creatinine (0.70-1.30) mg/dL Est Cr Clr Drug Dosing mL/min Estimated GFR (MDRD) Glucose (74-106) mg/dL Lactic Acid (0.4-2.0) mmol/L Calcium (8.5-10.1) mg/dL Corrected Calcium (8.5-10.1) mg/dL Total Bilirubin (0.2-1.0) mg/dL AST (15-37) U/L ALT (16-63) U/L Alkaline Phosphatase (46-116) U/L Troponin I (<=0.056) ng/mL C-Reactive Protein (<=0.9) mg/dL NT-Pro-B Natriuret Pep (<=450) pg/mL Total Protein (6.4-8.2) g/dL Albumin (3.4-5.0) g/dL Globulin Albumin/Globulin Ratio TSH, Ultra Sensitive (0.358-3.74) uIU/mL Urine Color Dark yellow H (YELLOW) Urine Appearance Turbid H (CLEAR) Urine pH 7.0 (5.0-8.0) Ur Specific [place] 1.015 Urine Protein 30 H (NEGATIVE) mg/dL Urine Glucose (UA) Negative (NEGATIVE) mg/dL Urine Ketones Negative (NEGATIVE) mg/dL Urine Occult Blood Moderate H (NEGATIVE) Urine Nitrite Positive H (NEGATIVE) Urine Bilirubin Negative (NEGATIVE) Urine Urobilinogen 0.2 (0.2) EU/dL Ur Leukocyte Esterase Large H (NEGATIVE) Urine RBC 10-20 H (NOT SEEN) /HPF Urine WBC 40-50 H (NOT SEEN) /HPF Urine WBC Clumps Few Ur Renal Epithelial Cell Occasional H (NEGATIVE) /HPF Urine Bacteria Few H (NEGATIVE) /HPF Urine Mucus Rare H (NEGATIVE) /LPF 10/11/17 10/11/17 Range/Units 13:16 13:16 WBC (4.0-10.0) x10^3/uL RBC (4.5-6.0) x10^6/uL Hgb (14.0-18.0) g/dL Hct (40.0-52.0) % MCV (78.0-93.0) fL MCH (26.0-32.0) pg MCHC (32.0-36.0) g/dL RDW Coeff of Lety (10.0-15.0) % Plt Count (130-400) x10^3/uL Neut % (Auto) (50.0-80.0) % Lymph % (Auto) (25.0-50.0) % [place] % (Auto) (2.0-11.0) % Eos % (Auto) (0.0-4.0) % Baso % (Auto) (0.2-1.2) % PT (9.6-11.4) SEC INR (2.0-3.5) Sodium 138 (136-145) mmol/L Potassium 4.0 (3.5-5.1) mmol/L Chloride 102 (98-107) mmol/L Carbon Dioxide 26 (21-32) mmol/L Anion Gap 14.0 (10-20) mmol/L BUN 26 H (7-18) mg/dL Creatinine 1.5 H (0.70-1.30) mg/dL Est Cr Clr Drug Dosing 40.24 mL/min Estimated GFR (MDRD) 45 Glucose 106 (74-106) mg/dL Lactic Acid 1.0 (0.4-2.0) mmol/L Calcium 8.8 (8.5-10.1) mg/dL Corrected Calcium 9.20 (8.5-10.1) mg/dL Total Bilirubin 1.1 H (0.2-1.0) mg/dL AST 35 (15-37) U/L ALT 34 (16-63) U/L Alkaline Phosphatase 60 (46-116) U/L Troponin I < 0.017 (<=0.056) ng/mL C-Reactive Protein 2.8 H (<=0.9) mg/dL NT-Pro-B Natriuret Pep 3704 H (<=450) pg/mL Total Protein 6.7 (6.4-8.2) g/dL Albumin 3.5 (3.4-5.0) g/dL Globulin 3.2 Albumin/Globulin Ratio 1.09 TSH, Ultra Sensitive 1.972 (0.358-3.74) uIU/mL Urine Color (YELLOW) Urine Appearance (CLEAR) Urine pH (5.0-8.0) Ur Specific [place] Urine Protein (NEGATIVE) mg/dL Urine Glucose (UA) (NEGATIVE) mg/dL Urine Ketones (NEGATIVE) mg/dL Urine Occult Blood (NEGATIVE) Urine Nitrite (NEGATIVE) Urine Bilirubin (NEGATIVE) Urine Urobilinogen (0.2) EU/dL Ur Leukocyte Esterase (NEGATIVE) Urine RBC (NOT SEEN) /HPF Urine WBC (NOT SEEN) /HPF Urine WBC Clumps Ur Renal Epithelial Cell (NEGATIVE) /HPF Urine Bacteria (NEGATIVE) /HPF Urine Mucus (NEGATIVE) /LPF Meds: Medications Generic Name Dose Route Start Last Admin Trade Name Freq PRN Reason Stop Dose Admin Sodium Chloride 10 ml 10/11/17 12:56 Saline Flush FLUSH ASDIRECTED PRN Keep Vein Open Discontinued Medications Generic Name Dose Route Start Last Admin Trade Name Freq PRN Reason Stop Dose Admin Ceftriaxone Sodium 1 gm 10/11/17 12:56 10/11/17 13:21 Rocephin IVPUSH 10/11/17 12:57 1 gm STAT ONE Administration Sodium Chloride 1,000 mls @ 999 mls/hr 10/11/17 12:56 10/11/17 13:05 Normal Saline IV 10/11/17 13:56 999 mls/hr ONETIME ONE Administration Departure - Departure Time of Disposition: 14:44 Disposition: Admitted As Inpatient 64 Condition: Good Clinical Impression: UTI, Urinary tract infectious disease, CHF, Congestive heart failure - Discharge Information *PRESCRIPTION DRUG MONITORING PROGRAM REVIEWED*: Not Applicable *COPY OF PRESCRIPTION DRUG MONITORING REPORT IN PATIENT ALLY: Not Applicable Referrals: Larisa Ellsworth MD [Primary Care Provider] - ED Communication - ED Communication Date/Time Date: 10/11/17 Time Called: 14:30 - Discussed Case With (1) Discussed Case With (1): Admitting Provider (Discussed case with DR. Ellsworth. She will admit and attend patient.) - Problem List & Annotations (1) CHF, Congestive heart failure SNOMED Code(s): 73761688 Code(s): I50.9 - HEART FAILURE, UNSPECIFIED Status: Acute Priority: Medium Current Visit: Yes (2) UTI, Urinary tract infectious disease SNOMED Code(s): 71706117 Code(s): N39.0 - URINARY TRACT INFECTION, SITE NOT SPECIFIED Status: Acute Priority: Medium Current Visit: Yes - Problem List Review Problem List Initiated/Reviewed/Updated: Yes - My Orders Last 24 Hours: My Active Orders 10/11/17 12:56 Chest 1V Frontal [CR] Stat Sodium Chloride 0.9% [Saline Flush] 10 ml FLUSH ASDIRECTED PRN Blood Culture x2 Reflex Set [OM.PC] Stat Saline Lock Insert [OM.PC] Routine 10/11/17 13:07 UA W/MICROSCOPIC [URIN] Stat 10/11/17 13:16 CULTURE BLOOD [BC] Stat 10/11/17 13:22 CULTURE BLOOD [BC] Stat - Assessment/Plan Last 24 Hours: My Active Orders 10/11/17 12:56 Chest 1V Frontal [CR] Stat Sodium Chloride 0.9% [Saline Flush] 10 ml FLUSH ASDIRECTED PRN Blood Culture x2 Reflex Set [OM.PC] Stat Saline Lock Insert [OM.PC] Routine 10/11/17 13:07 UA W/MICROSCOPIC [URIN] Stat 10/11/17 13:16 CULTURE BLOOD [BC] Stat 10/11/17 13:22 CULTURE BLOOD [BC] Stat Assessment:: urinary tract infection CHF exacerbation Plan: Admit to inpatient services, Dr. Ellsworth to admit.
[2017-10-11] MEDS: Sodium Chloride 0.9% 10 ML Syringe FLUSH PRN (14:37)
--- NOTE | 2017-10-11 14:49 | PCM.HP ---
H&P History of Present Illness - General Date of Service: 10/11/17 Admit Problem/Dx: Admission Diagnosis/Problem Admission Diagnosis/Problem Urinary tract infection Source of Information: Patient History Limitations: Reports: No Limitations - History of Present Illness Initial Comments - Free Text/Narative: Mr. Aragon is an 82 yo male with PMH of recurrent UTI's generally presenting as weakness who presented to the ER today for evaluation of worsening generalized weakness over the past 24 hours. This was to the point that he was almost unable to get up out of bed this morning. He then called his children who brought him to the ER for evaluation. His urine has been looking clear and normal without any sediment or issues. He has not had any abdominal pain. He did have chills last night but was unable to get out of bed to get his thermometer to check his temperature. He has a chronic cough and shortness of breath, both of which are currently unchanged. He has not had any chest pain. His cough has been nonproductive. His appetite has not been good the past couple of days but he has had no vomiting or diarrhea. He weighs himself daily but did not do his weight this morning as he was unable to get on the scale. No known sick contacts. No specific home cares done apart from his daily cranberry and cephalexin for UTI prevention. He states he feels more ill now than he can recall feeling for quite some time. He also did have a headache this morning, which is unusual for him. No falls recently. No focal neurologic symptoms and headache described as mild. He states this is now improving/resolving. Headache Pain Score (Numeric/FACES): 6 - Related Data Allergies/Adverse Reactions: Allergies Allergy/AdvReac Type Severity Reaction Status Date / Time No Known Allergies Allergy Verified 10/11/17 12:47 Home Medications: Home Meds Allopurinol [Zyloprim] 300 mg PO DAILY 09/10/14 [History] Tiotropium [Spiriva HandiHaler] 1 puff PO DAILY@0700 12/24/14 [History] Magnesium Oxide [Magnesium] 500 mg PO DAILY 01/26/16 [History] Diltiazem HCl [Cartia Xt] 180 mg PO DAILY 07/04/16 [History] Bisacodyl [Dulcolax] 5 mg PO DAILY PRN 07/07/16 [History] Docusate Sodium/Sennosides [Senna Plus] 1 tab PO BID@0700,1700 07/07/16 [History ] Albuterol [Proventil Neb Soln] 2.5 mg NEB BID 09/09/16 [History] Budesonide/Formoterol [Symbicort 160-4.5 MCG] 2 puff INH BID 09/09/16 [History] Cranberry Extract [Cranberry] 500 mg PO DAILY 09/09/16 [History] Lactobacillus Combination No.4 [Probiotic] 1 cap PO DAILY@1100 09/09/16 [History ] Lactulose [Generlac] 30 ml PO TID PRN 09/09/16 [History] Multivitamin [Multi-Vitamin Daily] 1 each PO DAILY 09/09/16 [History] D-Mannose 1 tab PO BID@0700,1700 04/26/17 [History] Furosemide [Lasix] 40 mg PO BID@0700,199904/27/17 [History] Metoprolol Succinate [Toprol XL] 25 mg PO DAILY@199904/27/17 [History] Warfarin [Coumadin] 5 mg PO DAILY@17004/27/17 [History] Omeprazole 20 mg PO DAILY 04/30/17 [History] Potassium Chloride 10 meq PO DAILY 04/30/17 [History] cephALEXin [Cephalexin] 1 tab PO DAILY 06/06/17 [History] Patient's Own Medication [Ptom] 0 each INH BID each 06/10/17 [Rx] Acetaminophen [Tylenol Extra Strength] 1,000 mg PO Q6H PRN 09/19/17 [History] Warfarin [Coumadin] 2.5 mg PO MOFR #1 tab 09/22/17 [Rx] Past Medical History HEENT History: Reports: Hard of Hearing, Impaired Vision Cardiovascular History: Reports: Afib, Aneurysm, Heart Failure, High Cholesterol , Hypertension, Pulmonary Hypertension, Other (See Below) Other Cardiovascular History: AAA Respiratory History: Reports: COPD, PE, SOB Other Respiratory History: hypoxia, oxygen dependent Gastrointestinal History: Reports: Chronic Constipation Genitourinary History: Reports: Hydronephrosis, Renal Calculus, UTI, Recurrent Other Genitourinary History: kidney stones Musculoskeletal History: Reports: Gout, Other (See Below) Other Musculoskeletal History: collapsed vertebra, compression fracture of spine Neurological History: Reports: Other (See Below) Other Neuro History: mild cognitive impairment Psychiatric History: Reports: Other (See Below) Other Psychiatric History: adjustment disorder Endocrine/Metabolic History: Reports: None Hematologic History: Reports: Other (See Below) Other Hematologic History: coumadin therapy Immunologic History: Reports: None Oncologic (Cancer) History: Reports: Bladder Dermatologic History: Reports: Other (See Below) Other Dermatologic History: lymphadenopathy - Infectious Disease History Infectious Disease History: Reports: None - Past Surgical History HEENT Surgical History: Reports: Cataract Surgery Other HEENT Surgeries/Procedures: Unspecific Eye surgery Cardiovascular Surgical History: Reports: AAA Repair Other Cardiovascular Surgeries/Procedures: endoluminal aortic stent Respiratory Surgical History: Reports: None GI Surgical History: Reports: Hernia, Inguinal Other GI Surgeries/Procedures: Endoluminal Aortic Stent Male Surgical History: Reports: Cystectomy, TURP-Transurethral Resection of Prostate Other Male Surgeries/Procedures: UROSTOMY Dermatological Surgical History: Reports: None Social & Family History - Family History Cardiac: Reports: CAD Respiratory: Reports: None GI: Reports: None : Reports: None OBGYN: Reports: None Musculoskeletal: Reports: Arthritis Neurological: Reports: None Psychiatric: Reports: None Endocrine/Metabolic: Reports: Diabetes, type II Hematologic: Reports: None Immunologic: Reports: None Oncologic: Reports: Bladder, Breast, Colon, Skin - Tobacco Use Smoking Status *Q: Former Smoker - Caffeine Use Caffeine Use: Reports: Coffee - Alcohol Use Alcohol Use History: Yes Alcohol Use in Last Twelve Months: No - Recreational Drug Use Recreational Drug Use: No - Living Situation & Occupation Living situation: Reports: , Alone Occupation: Retired H&P Review of Systems - Review of Systems: Review Of Systems: See Below General: Reports: Chills, Weakness HEENT: Reports: Headaches. Denies: Rhinitis, Sinus Congestion Pulmonary: Reports: No Symptoms Cardiovascular: Reports: No Symptoms Gastrointestinal: Reports: No Symptoms Genitourinary: Reports: No Symptoms Musculoskeletal: Reports: No Symptoms Skin: Reports: No Symptoms Psychiatric: Reports: No Symptoms Neurological: Reports: No Symptoms Exam - Exam Exam: See Below - Vital Signs Vital Signs: Last Vital Signs Temp 36.6 C 10/11/17 12:30 Pulse 95 10/11/17 12:30 Resp 20 10/11/17 12:30 BP 127/62 10/11/17 12:30 Pulse Ox 93 L 10/11/17 12:30 Weight: 98.883 kg - Exam General: Alert, Oriented, Cooperative HEENT: Conjunctiva Clear, Mucosa Moist & [place], Posterior Pharynx Clear, Pupils Equal, Pupils Reactive Neck: Supple, Trachea Midline, Full Range of Motion. No: Lymphadenopathy, Thyromegaly Lungs: Clear to Auscultation (other than LLL as documented), Normal Respiratory Effort, Decreased Breath Sounds (LLL) Cardiovascular: Regular Rate, Normal S1, Normal S2, Irregular Rhythm, Systolic Murmur GI/Abdominal Exam: Normal Bowel Sounds, Soft, No Organomegaly, No Distention, No Mass Extremities: Normal Inspection, Non-Tender, Pedal Edema (1+ to just above the ankles bilaterally) Peripheral Pulses: 2+: Radial (L), Radial (R) Skin: Warm, Dry, Intact Neurological: Strength Equal Bilateral - Patient Data Lab Results Last 24 hrs: Laboratory Results - last 24 hr 10/11/17 10/11/17 10/11/17 Range/Units 13:07 13:16 13:16 WBC 7.3 (4.0-10.0) x10^3/uL RBC 4.42 L (4.5-6.0) x10^6/uL Hgb 15.5 D (14.0-18.0) g/dL Hct 44.4 (40.0-52.0) % MCV 100.5 H D (78.0-93.0) fL MCH 35.1 H (26.0-32.0) pg MCHC 34.9 (32.0-36.0) g/dL RDW Coeff of Lety 13.5 (10.0-15.0) % Plt Count 142 (130-400) x10^3/uL Neut % (Auto) 71.7 (50.0-80.0) % Lymph % (Auto) 17.7 L (25.0-50.0) % Moore % (Auto) 10.2 (2.0-11.0) % Eos % (Auto) 0.1 (0.0-4.0) % Baso % (Auto) 0.3 (0.2-1.2) % PT 20.5 H (9.6-11.4) SEC INR 2.0 (2.0-3.5) Sodium (136-145) mmol/L Potassium (3.5-5.1) mmol/L Chloride (98-107) mmol/L Carbon Dioxide (21-32) mmol/L Anion Gap (10-20) mmol/L BUN (7-18) mg/dL Creatinine (0.70-1.30) mg/dL Est Cr Clr Drug Dosing mL/min Estimated GFR (MDRD) Glucose (74-106) mg/dL Lactic Acid (0.4-2.0) mmol/L Calcium (8.5-10.1) mg/dL Corrected Calcium (8.5-10.1) mg/dL Total Bilirubin (0.2-1.0) mg/dL AST (15-37) U/L ALT (16-63) U/L Alkaline Phosphatase (46-116) U/L Troponin I (<=0.056) ng/mL C-Reactive Protein (<=0.9) mg/dL NT-Pro-B Natriuret Pep (<=450) pg/mL Total Protein (6.4-8.2) g/dL Albumin (3.4-5.0) g/dL Globulin Albumin/Globulin Ratio TSH, Ultra Sensitive (0.358-3.74) uIU/mL Urine Color Dark yellow H (YELLOW) Urine Appearance Turbid H (CLEAR) Urine pH 7.0 (5.0-8.0) Ur Specific Griffin 1.015 Urine Protein 30 H (NEGATIVE) mg/dL Urine Glucose (UA) Negative (NEGATIVE) mg/dL Urine Ketones Negative (NEGATIVE) mg/dL Urine Occult Blood Moderate H (NEGATIVE) Urine Nitrite Positive H (NEGATIVE) Urine Bilirubin Negative (NEGATIVE) Urine Urobilinogen 0.2 (0.2) EU/dL Ur Leukocyte Esterase Large H (NEGATIVE) Urine RBC 10-20 H (NOT SEEN) /HPF Urine WBC 40-50 H (NOT SEEN) /HPF Urine WBC Clumps Few Ur Renal Epithelial Cell Occasional H (NEGATIVE) /HPF Urine Bacteria Few H (NEGATIVE) /HPF Urine Mucus Rare H (NEGATIVE) /LPF 10/11/17 10/11/17 Range/Units 13:16 13:16 WBC (4.0-10.0) x10^3/uL RBC (4.5-6.0) x10^6/uL Hgb (14.0-18.0) g/dL Hct (40.0-52.0) % MCV (78.0-93.0) fL MCH (26.0-32.0) pg MCHC (32.0-36.0) g/dL RDW Coeff of Lety (10.0-15.0) % Plt Count (130-400) x10^3/uL Neut % (Auto) (50.0-80.0) % Lymph % (Auto) (25.0-50.0) % Moore % (Auto) (2.0-11.0) % Eos % (Auto) (0.0-4.0) % Baso % (Auto) (0.2-1.2) % PT (9.6-11.4) SEC INR (2.0-3.5) Sodium 138 (136-145) mmol/L Potassium 4.0 (3.5-5.1) mmol/L Chloride 102 (98-107) mmol/L Carbon Dioxide 26 (21-32) mmol/L Anion Gap 14.0 (10-20) mmol/L BUN 26 H (7-18) mg/dL Creatinine 1.5 H (0.70-1.30) mg/dL Est Cr Clr Drug Dosing 40.24 mL/min Estimated GFR (MDRD) 45 Glucose 106 (74-106) mg/dL Lactic Acid 1.0 (0.4-2.0) mmol/L Calcium 8.8 (8.5-10.1) mg/dL Corrected Calcium 9.20 (8.5-10.1) mg/dL Total Bilirubin 1.1 H (0.2-1.0) mg/dL AST 35 (15-37) U/L ALT 34 (16-63) U/L Alkaline Phosphatase 60 (46-116) U/L Troponin I < 0.017 (<=0.056) ng/mL C-Reactive Protein 2.8 H (<=0.9) mg/dL NT-Pro-B Natriuret Pep 3704 H (<=450) pg/mL Total Protein 6.7 (6.4-8.2) g/dL Albumin 3.5 (3.4-5.0) g/dL Globulin 3.2 Albumin/Globulin Ratio 1.09 TSH, Ultra Sensitive 1.972 (0.358-3.74) uIU/mL Urine Color (YELLOW) Urine Appearance (CLEAR) Urine pH (5.0-8.0) Ur Specific Griffin Urine Protein (NEGATIVE) mg/dL Urine Glucose (UA) (NEGATIVE) mg/dL Urine Ketones (NEGATIVE) mg/dL Urine Occult Blood (NEGATIVE) Urine Nitrite (NEGATIVE) Urine Bilirubin (NEGATIVE) Urine Urobilinogen (0.2) EU/dL Ur Leukocyte Esterase (NEGATIVE) Urine RBC (NOT SEEN) /HPF Urine WBC (NOT SEEN) /HPF Urine WBC Clumps Ur Renal Epithelial Cell (NEGATIVE) /HPF Urine Bacteria (NEGATIVE) /HPF Urine Mucus (NEGATIVE) /LPF Result Diagrams: 10/11/17 13:16 10/11/17 13:16 - Problem List (1) UTI, Urinary tract infectious disease SNOMED Code(s): 70930810 ICD Code: N39.0 - URINARY TRACT INFECTION, SITE NOT SPECIFIED Status: Acute Priority: Medium Current Visit: Yes (2) Diastolic heart failure SNOMED Code(s): 330578377 ICD Code: I50.30 - UNSPECIFIED DIASTOLIC (CONGESTIVE) HEART FAILURE Status : Acute Current Visit: No Qualifiers: Heart failure chronicity: acute on chronic Qualified Code(s): I50.33 - Acute on chronic diastolic (congestive) heart failure (3) Weakness SNOMED Code(s): 85042195 ICD Code: R53.1 - WEAKNESS Status: Acute Current Visit: No (4) COPD (chronic obstructive pulmonary disease) SNOMED Code(s): 47781838 ICD Code: J44.9 - CHRONIC OBSTRUCTIVE PULMONARY DISEASE, UNSPECIFIED Status : Chronic Current Visit: No Qualifiers: COPD type: unspecified COPD Qualified Code(s): J44.9 - Chronic obstructive pulmonary disease, unspecified (5) Chronic atrial fibrillation SNOMED Code(s): 013181330 ICD Code: I48.2 - CHRONIC ATRIAL FIBRILLATION Status: Chronic Current Visit: No (6) Chronic anticoagulation SNOMED Code(s): 229601749 ICD Code: Z79.01 - STRIKE WARFARE/MISSILE SYSTEMS OFFICER (CURRENT) USE OF ANTICOAGULANTS Status: Chronic Current Visit: No Problem Details: See above. (7) Chronic kidney disease SNOMED Code(s): 730142679 ICD Code: N18.9 - CHRONIC KIDNEY DISEASE, UNSPECIFIED Status: Chronic Current Visit: No Qualifiers: Chronic kidney disease stage: stage 3 (moderate) (8) Chronic respiratory failure with hypoxia SNOMED Code(s): 758820497 ICD Code: J96.11 - CHRONIC RESPIRATORY FAILURE WITH HYPOXIA Status: Chronic Current Visit: No (9) Pulmonary hypertension SNOMED Code(s): 85797134 ICD Code: I27.2 - OTHER SECONDARY PULMONARY HYPERTENSION * DO NOT USE * Status: Chronic Current Visit: No (10) Constipation SNOMED Code(s): 32491736 ICD Code: K59.00 - CONSTIPATION, UNSPECIFIED Status: Chronic Current Visit: No Qualifiers: Constipation type: unspecified constipation type Qualified Code(s): K59.00 - Constipation, unspecified (11) Gout SNOMED Code(s): 02258260 ICD Code: M10.9 - GOUT, UNSPECIFIED Status: Chronic Current Visit: No Qualifiers: (12) Hypercholesteremia SNOMED Code(s): 79390151 ICD Code: E78.0 - PURE HYPERCHOLESTEROLEMIA * DO NOT USE * Status: Chronic Current Visit: No Problem List Initiated/Reviewed/Updated: Yes Orders Last 24hrs: Active Orders 24 hr Category Date Time Status Patient Status [ADT] Routine ADT 10/11/17 14:40 Active Chest 1V Frontal [CR] Stat Exams 10/11/17 12:56 Taken CULTURE BLOOD [BC] Stat Lab 10/11/17 13:16 Received CULTURE BLOOD [BC] Stat Lab 10/11/17 13:22 Received UA W/MICROSCOPIC [URIN] Stat Lab 10/11/17 13:07 Ordered Sodium Chloride 0.9% [Saline Flush] Med 10/11/17 12:56 Active 10 ml FLUSH ASDIRECTED PRN Blood Culture x2 Reflex Set [OM.PC] Stat Oth 10/11/17 12:56 Ordered Saline Lock Insert [OM.PC] Routine Oth 10/11/17 12:56 Ordered Medication Orders Sodium Chloride (Saline Flush) 10 ml FLUSH ASDIRECTED PRN PRN Reason: Keep Vein Open Last Admin: 10/11/17 14:37 Dose: 10 ml Assessment/Plan Comment:: #1 UTI - U/A significantly abnormal. - Consider contamination consistently given urostomy in place but presence of RBC and WBC on micro makes it likely to be a true UTI. - Patient's last 3 urine cultures have been pseudomonas susceptible to cefepime. - He did get ceftriaxone in the ER but this will not cover for pseudomonas. Therefore, will do cefepime. - Dosing per CrCl is 1 gram every 24 hours. - Urine culture ordered. - Blood cultures pending. - Patient does not meet any sepsis criteria and has concomitant heart failure. Therefore, will not give any additional IV fluids unless bolus is needed for hypotension/tachycardia. #2 Acute on Chronic Diastolic CHF - BNP is elevated, CXR and lung exam consistent with left sided pleural effusion , and patient has LE edema that is not typical for him at baseline. - He got additional lasix in the ER. - Will monitor I/O closely. - Will hold off on ordering any lasix for tomorrow until we see how things go over night. #3 Generalized weakness, secondary to #1 and #2 - Patient has had increasing difficulty recovering his strength after his acute illnesses. - Will monitor for the next couple of days and consider PT/OT consults depending on how he recovers this time. #4 COPD - Patient does have cough and dyspnea but they are at baseline. - No prednisone indicated at this time but will monitor closely. - Continue home controller inhalers. Will do albuterol nebs PRN instead of albuterol inhaler PRN. #5 Chronic Atrial Fibrillation #6 Chronic Anticoagulation - INR therapeutic at 2.0. Will continue warfarin per home schedule. Recheck INR in am. - Will continue metoprolol but with holding parameters. 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 Has had creatinines as low as 1.4 but his baseline really is more like 1.6. - IV fluids in the ER. Given CHF exacerbation currently, will hold off on additional IV fluids for now. Recheck labs in the am. #8 Chronic Respiratory Failure with Hypoxia #9 Pulmonary Hypertension - Continue oxygen per home schedule. - Will increase PRN. #10 Constipation #11 Gout #12 Hyperlipidemia - Continue home medications. Patient is admitted to acute as he will likely be admitted for at least 72 hours and will require IV medications. Anticipate he will need a swing bed stay after his hospitalization but that will be determined by how well and quickly he recovers. No VTE prophylaxis is indicated as INR is therapeutic at 2.0; will check daily. 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
[2017-10-11] MEDS ORDERED: Bisacodyl 5 MG Tab PO PRN (16:01)
[2017-10-11] MEDS: Cefepime 1 GM in Sodium Chloride 0.9% 100 ML IV SCH (16:18)
[2017-10-11] MEDS ORDERED: Lactulose Soln 10 GM/15 ML 30 ML UD Cup PO PRN (16:30)
[2017-10-11] MEDS: Acetaminophen 500 MG Tab PO PRN (18:08)
[2017-10-11] MEDS ORDERED: Formoterol/Mometasone 200-5 MCG 8.8 GM Inhaler IH SCH ×2 (20:00→21:30)
[2017-10-11] MEDS: Albuterol/Ipratropium 3.0-0.5 MG/3 ML Neb Soln INH SCH (20:03)
[2017-10-11] MEDS: Metoprolol Succinate 25 MG Tab.ER PO SCH (20:06)
[2017-10-11] MEDS: Warfarin 5 MG Tab PO SCH (20:48)
[2017-10-12] MEDS: Acetaminophen 500 MG Tab PO PRN (06:18)
[2017-10-12] MEDS: Tiotropium Inhaler 18 MCG Inhalation Powder Cap Kit of 5 INH SCH (06:19)
[2017-10-12] MEDS: Albuterol/Ipratropium 3.0-0.5 MG/3 ML Neb Soln INH SCH ×2 (07:14→19:46)
[2017-10-12] MEDS: Diltiazem 180 MG Cap.CD PO SCH (07:37)
[2017-10-12] MEDS: Formoterol/Mometasone 200-5 MCG 8.8 GM Inhaler IH SCH ×2 (07:38→19:44)
[2017-10-12] MEDS: Allopurinol 300 MG Tab PO SCH (07:38)
[2017-10-12] MEDS: Magnesium Oxide 400 MG Tab PO SCH (07:38)
[2017-10-12 07:45] LABS: ANION GAP 14.8 mmol/L (10-20)
--- NOTE | 2017-10-12 08:29 | PCM.PN ---
- General Info Date of Service: 10/12/17 Subjective Update: Patient is feeling quite fatigued still this morning. He states he did not sleep well. He also feels "foggy" and like he cannot think quite right. No chills overnight. No other symptoms today. SOB remains at baseline; no cough today. - Review of Systems General: Reports: No Symptoms HEENT: Reports: No Symptoms Pulmonary: Reports: No Symptoms Cardiovascular: Reports: No Symptoms Gastrointestinal: Reports: No Symptoms Genitourinary: Reports: No Symptoms Musculoskeletal: Reports: No Symptoms Skin: Reports: No Symptoms - Patient Data Vitals - Most Recent: Last Vital Signs Temp 36.6 C 10/12/17 06:48 Pulse 81 10/12/17 05:43 Resp 18 10/12/17 05:43 BP 137/78 10/12/17 05:43 Pulse Ox 93 L 10/12/17 07:15 Weight - Most Recent: 99.337 kg I&O - Last 24 Hours: Intake & Output 10/11/17 10/12/17 10/12/17 22:59 06:59 14:59 Intake Total 1440 600 360 Output Total 1050 1000 Balance 390 -400 360 Lab Results Last 24 Hours: Laboratory Results - last 24 hr 10/11/17 10/11/17 10/11/17 Range/Units 13:07 13:16 13:16 WBC 7.3 (4.0-10.0) x10^3/uL RBC 4.42 L (4.5-6.0) x10^6/uL Hgb 15.5 D (14.0-18.0) g/dL Hct 44.4 (40.0-52.0) % MCV 100.5 H D (78.0-93.0) fL MCH 35.1 H (26.0-32.0) pg MCHC 34.9 (32.0-36.0) g/dL RDW Coeff of Lety 13.5 (10.0-15.0) % Plt Count 142 (130-400) x10^3/uL Neut % (Auto) 71.7 (50.0-80.0) % Lymph % (Auto) 17.7 L (25.0-50.0) % [place] % (Auto) 10.2 (2.0-11.0) % Eos % (Auto) 0.1 (0.0-4.0) % Baso % (Auto) 0.3 (0.2-1.2) % Add Manual Diff Neutrophils % (Manual) (50-80) % Band Neutrophils % (0-6) % Lymphocytes % (Manual) (25-50) % Reactive Lymphs % (0) % Atypical Lymphs % (0) % Monocytes % (Manual) (2-11) % Eosinophils % (Manual) (0-4) % Basophils % (Manual) (0-1) % Myelocytes % (0) % Blast Cells % (0) % Platelet Estimate PT 20.5 H (9.6-11.4) SEC INR 2.0 (2.0-3.5) Sodium (136-145) mmol/L Potassium (3.5-5.1) mmol/L Chloride (98-107) mmol/L Carbon Dioxide (21-32) mmol/L Anion Gap (10-20) mmol/L BUN (7-18) mg/dL Creatinine (0.70-1.30) mg/dL Est Cr Clr Drug Dosing mL/min Estimated GFR (MDRD) Glucose (74-106) mg/dL Lactic Acid (0.4-2.0) mmol/L Calcium (8.5-10.1) mg/dL Corrected Calcium (8.5-10.1) mg/dL Total Bilirubin (0.2-1.0) mg/dL AST (15-37) U/L ALT (16-63) U/L Alkaline Phosphatase (46-116) U/L Troponin I (<=0.056) ng/mL C-Reactive Protein (<=0.9) mg/dL NT-Pro-B Natriuret Pep (<=450) pg/mL Total Protein (6.4-8.2) g/dL Albumin (3.4-5.0) g/dL Globulin Albumin/Globulin Ratio TSH, Ultra Sensitive (0.358-3.74) uIU/mL Urine Color Dark yellow H (YELLOW) Urine Appearance Turbid H (CLEAR) Urine pH 7.0 (5.0-8.0) Ur Specific [place] 1.015 Urine Protein 30 H (NEGATIVE) mg/dL Urine Glucose (UA) Negative (NEGATIVE) mg/dL Urine Ketones Negative (NEGATIVE) mg/dL Urine Occult Blood Moderate H (NEGATIVE) Urine Nitrite Positive H (NEGATIVE) Urine Bilirubin Negative (NEGATIVE) Urine Urobilinogen 0.2 (0.2) EU/dL Ur Leukocyte Esterase Large H (NEGATIVE) Urine RBC 10-20 H (NOT SEEN) /HPF Urine WBC 40-50 H (NOT SEEN) /HPF Urine WBC Clumps Few Ur Renal Epithelial Cell Occasional H (NEGATIVE) /HPF Urine Bacteria Few H (NEGATIVE) /HPF Urine Mucus Rare H (NEGATIVE) /LPF 10/11/17 10/11/17 10/12/17 Range/Units 13:16 13:16 07:20 WBC 6.6 (4.0-10.0) x10^3/uL RBC 4.43 L (4.5-6.0) x10^6/uL Hgb 14.8 (14.0-18.0) g/dL Hct 45.6 (40.0-52.0) % MCV 102.9 H (78.0-93.0) fL MCH 33.4 H (26.0-32.0) pg MCHC 32.5 (32.0-36.0) g/dL RDW Coeff of Lety 13.4 (10.0-15.0) % Plt Count 120 L (130-400) x10^3/uL Neut % (Auto) (50.0-80.0) % Lymph % (Auto) (25.0-50.0) % [place] % (Auto) (2.0-11.0) % Eos % (Auto) (0.0-4.0) % Baso % (Auto) (0.2-1.2) % Add Manual Diff Yes Neutrophils % (Manual) 65 (50-80) % Band Neutrophils % 2 (0-6) % Lymphocytes % (Manual) 18 L (25-50) % Reactive Lymphs % 2 H (0) % Atypical Lymphs % 1 H (0) % Monocytes % (Manual) 5 (2-11) % Eosinophils % (Manual) 2 (0-4) % Basophils % (Manual) 2 H (0-1) % Myelocytes % 1 H (0) % Blast Cells % 2 H (0) % Platelet Estimate Decreased L PT (9.6-11.4) SEC INR (2.0-3.5) Sodium 138 (136-145) mmol/L Potassium 4.0 (3.5-5.1) mmol/L Chloride 102 (98-107) mmol/L Carbon Dioxide 26 (21-32) mmol/L Anion Gap 14.0 (10-20) mmol/L BUN 26 H (7-18) mg/dL Creatinine 1.5 H (0.70-1.30) mg/dL Est Cr Clr Drug Dosing 40.24 mL/min Estimated GFR (MDRD) 45 Glucose 106 (74-106) mg/dL Lactic Acid 1.0 (0.4-2.0) mmol/L Calcium 8.8 (8.5-10.1) mg/dL Corrected Calcium 9.20 (8.5-10.1) mg/dL Total Bilirubin 1.1 H (0.2-1.0) mg/dL AST 35 (15-37) U/L ALT 34 (16-63) U/L Alkaline Phosphatase 60 (46-116) U/L Troponin I < 0.017 (<=0.056) ng/mL C-Reactive Protein 2.8 H (<=0.9) mg/dL NT-Pro-B Natriuret Pep 3704 H (<=450) pg/mL Total Protein 6.7 (6.4-8.2) g/dL Albumin 3.5 (3.4-5.0) g/dL Globulin 3.2 Albumin/Globulin Ratio 1.09 TSH, Ultra Sensitive 1.972 (0.358-3.74) uIU/mL Urine Color (YELLOW) Urine Appearance (CLEAR) Urine pH (5.0-8.0) Ur Specific [place] Urine Protein (NEGATIVE) mg/dL Urine Glucose (UA) (NEGATIVE) mg/dL Urine Ketones (NEGATIVE) mg/dL Urine Occult Blood (NEGATIVE) Urine Nitrite (NEGATIVE) Urine Bilirubin (NEGATIVE) Urine Urobilinogen (0.2) EU/dL Ur Leukocyte Esterase (NEGATIVE) Urine RBC (NOT SEEN) /HPF Urine WBC (NOT SEEN) /HPF Urine WBC Clumps Ur Renal Epithelial Cell (NEGATIVE) /HPF Urine Bacteria (NEGATIVE) /HPF Urine Mucus (NEGATIVE) /LPF 10/12/17 10/12/17 Range/Units 07:20 07:20 WBC (4.0-10.0) x10^3/uL RBC (4.5-6.0) x10^6/uL Hgb (14.0-18.0) g/dL Hct (40.0-52.0) % MCV (78.0-93.0) fL MCH (26.0-32.0) pg MCHC (32.0-36.0) g/dL RDW Coeff of Lety (10.0-15.0) % Plt Count (130-400) x10^3/uL Neut % (Auto) (50.0-80.0) % Lymph % (Auto) (25.0-50.0) % [place] % (Auto) (2.0-11.0) % Eos % (Auto) (0.0-4.0) % Baso % (Auto) (0.2-1.2) % Add Manual Diff Neutrophils % (Manual) (50-80) % Band Neutrophils % (0-6) % Lymphocytes % (Manual) (25-50) % Reactive Lymphs % (0) % Atypical Lymphs % (0) % Monocytes % (Manual) (2-11) % Eosinophils % (Manual) (0-4) % Basophils % (Manual) (0-1) % Myelocytes % (0) % Blast Cells % (0) % Platelet Estimate PT 16.8 H (9.6-11.4) SEC INR 1.6 L (2.0-3.5) Sodium 137 (136-145) mmol/L Potassium 3.8 (3.5-5.1) mmol/L Chloride 100 (98-107) mmol/L Carbon Dioxide 26 (21-32) mmol/L Anion Gap 14.8 (10-20) mmol/L BUN 25 H (7-18) mg/dL Creatinine 1.5 H (0.70-1.30) mg/dL Est Cr Clr Drug Dosing 40.24 mL/min Estimated GFR (MDRD) 45 Glucose 114 H (74-106) mg/dL Lactic Acid (0.4-2.0) mmol/L Calcium 8.6 (8.5-10.1) mg/dL Corrected Calcium (8.5-10.1) mg/dL Total Bilirubin (0.2-1.0) mg/dL AST (15-37) U/L ALT (16-63) U/L Alkaline Phosphatase (46-116) U/L Troponin I (<=0.056) ng/mL C-Reactive Protein (<=0.9) mg/dL NT-Pro-B Natriuret Pep (<=450) pg/mL Total Protein (6.4-8.2) g/dL Albumin (3.4-5.0) g/dL Globulin Albumin/Globulin Ratio TSH, Ultra Sensitive (0.358-3.74) uIU/mL Urine Color (YELLOW) Urine Appearance (CLEAR) Urine pH (5.0-8.0) Ur Specific [place] Urine Protein (NEGATIVE) mg/dL Urine Glucose (UA) (NEGATIVE) mg/dL Urine Ketones (NEGATIVE) mg/dL Urine Occult Blood (NEGATIVE) Urine Nitrite (NEGATIVE) Urine Bilirubin (NEGATIVE) Urine Urobilinogen (0.2) EU/dL Ur Leukocyte Esterase (NEGATIVE) Urine RBC (NOT SEEN) /HPF Urine WBC (NOT SEEN) /HPF Urine WBC Clumps Ur Renal Epithelial Cell (NEGATIVE) /HPF Urine Bacteria (NEGATIVE) /HPF Urine Mucus (NEGATIVE) /LPF Joce Results Last 24 Hours: Microbiology 10/11/17 13:22 Aerobic Blood Culture - Preliminary Blood - Venous - Lab Draw Gram Positive Cocci In Chains Anaerobic Blood Culture - Preliminary Gram Positive Cocci In Chains 10/11/17 13:16 Aerobic Blood Culture - Preliminary Blood - Venous Gram Positive Cocci In Chains Anaerobic Blood Culture - Preliminary Gram Positive Cocci Med Orders - Current: Current Medications Acetaminophen (Tylenol Extra Strength) 1,000 mg PO Q8H PRN PRN Reason: Pain Last Admin: 10/12/17 06:18 Dose: 1,000 mg Albuterol/Ipratropium (Duoneb 3.0-0.5 Mg/3 Ml) 3 ml INH BIDRT [facility] Last Admin: 10/12/17 07:14 Dose: 3 ml Allopurinol (Zyloprim) 300 mg PO DAILY [facility] Last Admin: 10/12/17 07:38 Dose: 300 mg Bisacodyl (Dulcolax) 5 mg PO DAILY PRN PRN Reason: Constipation Diltiazem HCl (Cardizem Cd) 180 mg PO DAILY [facility] Last Admin: 10/12/17 07:37 Dose: 180 mg Cefepime HCl 1 gm/ Sodium (Chloride) 100 mls @ 200 mls/hr IV Q24H [facility] Last Admin: 10/11/17 16:18 Dose: 200 mls/hr Lactulose (Cephulac) 20 gm PO TID PRN PRN Reason: CONSTIPATION Magnesium Oxide (Magnesium Oxide) 400 mg PO DAILY [facility] Last Admin: 10/12/17 07:38 Dose: 400 mg Metoprolol Succinate (Toprol Xl) 25 mg PO DAILY@1999 [facility] Last Admin: 10/11/17 20:06 Dose: Not Given Mometasone Furoate/Formoterol Fumar (Dulera 200-5 Mcg) 2 puff IH Q12H [facility] Last Admin: 10/12/17 07:38 Dose: 2 puff Senna/Docusate Sodium (Senna Plus) 1 tab PO BID [facility] Last Admin: 10/12/17 07:38 Dose: 1 tab Sodium Chloride (Saline Flush) 10 ml FLUSH ASDIRECTED PRN PRN Reason: Keep Vein Open Last Admin: 10/11/17 14:37 Dose: 10 ml Tiotropium [place] (Spiriva Handihaler) 18 mcg INH DAILY@07 [facility] Last Admin: 10/12/17 06:19 Dose: 18 mcg Warfarin Sodium (Coumadin) 2.5 mg PO Fr@1999 [facility] Warfarin Sodium (Coumadin) 5 mg PO SuMoTuWeThSa@1999 [facility] Last Admin: 10/11/17 20:48 Dose: 5 mg Discontinued Medications Ceftriaxone Sodium (Rocephin) 1 gm IVPUSH STAT ONE Stop: 10/11/17 12:57 Last Admin: 10/11/17 13:21 Dose: 1 gm Furosemide (Lasix) 40 mg IV ONETIME ONE Stop: 10/11/17 14:26 Last Admin: 10/11/17 14:36 Dose: 40 mg Sodium Chloride (Normal Saline) 1,000 mls @ 999 mls/hr IV ONETIME ONE Stop: 10/11/17 13:56 Last Admin: 10/11/17 13:05 Dose: 999 mls/hr Mometasone Furoate/Formoterol Fumar (Dulera 200-5 Mcg) 2 puff IH BIDRT [facility] Last Admin: 10/11/17 20:03 Dose: 2 puff Mometasone Furoate/Formoterol Fumar (Dulera 200-5 Mcg) 2 puff IH Q12H [facility] Last Admin: 10/11/17 20:03 Dose: 2 puff Senna/Docusate Sodium (Senna Plus) 1 tab PO BID@0700,1700 [facility] Last Admin: 10/11/17 17:50 Dose: Not Given - Exam General: Alert, Cooperative, No Acute Distress HEENT: Mucous Membr. Moist/[place] Neck: Supple, Trachea Midline, No Thyromegaly. No: Lymphadenopathy Lungs: Clear to Auscultation (other than LLL), Normal Respiratory Effort, Decreased Breath Sounds (LLL) Cardiovascular: Regular Rate, Irregular Rhythm, Murmurs (2/6 systolic murmur stable from previous) GI/Abdominal Exam: Normal Bowel Sounds, Soft, Non-Tender, No Organomegaly, No Distention, No Mass Extremities: Non-Tender, Normal Capillary Refill, Pedal Edema (trace pitting bilaterally) Peripheral Pulses: 2+: Radial (L), Radial (R) Skin: Warm, Dry, Intact Neurological: No New Focal Deficit - Problem List & Annotations (1) Gram-positive bacteremia SNOMED Code(s): 692991219218 Code(s): R78.81 - BACTEREMIA Status: Acute Current Visit: Yes (2) UTI, Urinary tract infectious disease SNOMED Code(s): 01437655 Code(s): N39.0 - URINARY TRACT INFECTION, SITE NOT SPECIFIED Status: Acute Priority: Medium Current Visit: Yes (3) Diastolic heart failure SNOMED Code(s): 795688307 Code(s): I50.30 - UNSPECIFIED DIASTOLIC (CONGESTIVE) HEART FAILURE Status: Acute Current Visit: No Qualifiers: Heart failure chronicity: acute on chronic Qualified Code(s): I50.33 - Acute on chronic diastolic (congestive) heart failure (4) Weakness SNOMED Code(s): 13156681 Code(s): R53.1 - WEAKNESS Status: Acute Current Visit: No (5) COPD (chronic obstructive pulmonary disease) SNOMED Code(s): 86922253 Code(s): J44.9 - CHRONIC OBSTRUCTIVE PULMONARY DISEASE, UNSPECIFIED Status : Chronic Current Visit: No Qualifiers: COPD type: unspecified COPD Qualified Code(s): J44.9 - Chronic obstructive pulmonary disease, unspecified (6) Chronic atrial fibrillation SNOMED Code(s): 020490032 Code(s): I48.2 - CHRONIC ATRIAL FIBRILLATION Status: Chronic Current Visit: No (7) Chronic anticoagulation SNOMED Code(s): 008153029 Code(s): Z79.01 - ASSISTED (CURRENT) USE OF ANTICOAGULANTS Status: Chronic Current Visit: No Annotation/Comment:: See above. (8) Chronic kidney disease SNOMED Code(s): 511417013 Code(s): N18.9 - CHRONIC KIDNEY DISEASE, UNSPECIFIED Status: Chronic Current Visit: No Qualifiers: Chronic kidney disease stage: stage 3 (moderate) Qualified Code(s): N18.3 - Chronic kidney disease, stage 3 (moderate) (9) Chronic respiratory failure with hypoxia SNOMED Code(s): 264430690 Code(s): J96.11 - CHRONIC RESPIRATORY FAILURE WITH HYPOXIA Status: Chronic Current Visit: No (10) Pulmonary hypertension SNOMED Code(s): 93091071 Code(s): I27.2 - OTHER SECONDARY PULMONARY HYPERTENSION * DO NOT USE * Status: Chronic Current Visit: No (11) Constipation SNOMED Code(s): 73886850 Code(s): K59.00 - CONSTIPATION, UNSPECIFIED Status: Chronic Current Visit : No Qualifiers: Constipation type: unspecified constipation type Qualified Code(s): K59.00 - Constipation, unspecified (12) Gout SNOMED Code(s): 63338246 Code(s): M10.9 - GOUT, UNSPECIFIED Status: Chronic Current Visit: No Qualifiers: (13) Hypercholesteremia SNOMED Code(s): 04395388 Code(s): E78.0 - PURE HYPERCHOLESTEROLEMIA * DO NOT USE * Status: Chronic Current Visit: No - Problem List Review Problem List Initiated/Reviewed/Updated: Yes - My Orders Last 24 Hours: My Active Orders 10/11/17 12:56 CULTURE URINE [RM] Routine 10/11/17 14:45 CULTURE MRSA SURVEY [RM] Routine 10/11/17 15:23 Notify Provider Vital Signs [RC] 06,10,14,18,22,02 Oxygen Therapy [RC] 08,20 Up With Assistance [RC] ASDIRECTED VTE/DVT Education [RC] .PRN Vital Signs [RC] 06,10,14,18,22,02 Anticoagulation Contraindications VTE [AST] Per Unit Routine Resuscitation Status Routine 10/11/17 15:26 Dietary Supplements [RC] 0730,1730 10/11/17 16:00 Cefepime [Maxipime] 1 gm Sodium Chloride 0.9% [Normal Saline] 100 ml IV Q24H 10/11/17 16:01 Acetaminophen [Tylenol Extra Strength] 1,000 mg PO Q8H PRN Bisacodyl [Dulcolax] 5 mg PO DAILY PRN 10/11/17 16:30 Lactulose [Cephulac] 20 gm PO TID PRN 10/11/17 20:00 Albuterol/Ipratropium [DuoNeb 3.0-0.5 MG/3 ML] 3 ml INH BIDRT Docusate Sodium/Sennosides [Senna Plus] 1 tab PO BID Metoprolol Succinate [Toprol XL] 25 mg PO DAILY@1999 Warfarin [Coumadin] 5 mg PO SuMoTuWeThSa@199910/11/17 Dinner Heart Healthy Diet [DIET] 10/12/17 07:00 Tiotropium [Spiriva HandiHaler] 18 mcg INH DAILY@69910/12/17 08:00 Allopurinol [Zyloprim] 300 mg PO DAILY Diltiazem [Cardizem CD] 180 mg PO DAILY Magnesium Oxide 400 mg PO DAILY Mometasone/Formoterol [Dulera 200-5 MCG] 2 puff IH Q12H 10/16/17 20:00 Warfarin [Coumadin] 2.5 mg PO Fr@1999 - Assessment Assessment:: 82 yo male admitted with presumed UTI after presenting with generalized weakness. Now with 4/4 positive blood cultures for gram positive cocci. Is feeling generally weak and somewhat confused today. - Plan Plan:: #1 Gram Positive Bacteremia - Source is unclear at this point. Atypical but not impossible for UTI to be caused by gram positive organisms. - Patient's CXR abnormal but more consistent in appearance with fluid overload rather than pneumonia. No symptoms for any other infection. - Patient's clinical status is essentially stable today, suggesting that he is covered with the cefepime. - However, in light of the 4/4 positive and multiple recent hospitalizations, he is at risk for MRSA; therefore, will add vancomycin today. - Discussed the case with ID as well who agreed with the above plan. Also recommend rechecking blood cultures tomorrow am. Whether or not he needs an Echo will depend on the specific species as well as whether his cultures are persistently positive. #2 UTI - U/A significantly abnormal. - Patient's last 3 urine cultures have been pseudomonas susceptible to cefepime ; however, he is now growing gram positive cocci in his blood. - Will continue cefepime but also add vancomycin as above. - Urine culture pending. - Blood cultures 4/4 positive for gram positive cocci. - Patient does not meet any sepsis criteria and has concomitant heart failure. Therefore, will not give any additional IV fluids unless bolus is needed for hypotension/tachycardia. #3 Acute on Chronic Diastolic CHF - BNP is elevated, CXR and lung exam consistent with left sided pleural effusion , and patient has LE edema that is not typical for him at baseline. - Will do 20 mg IV lasix this am. - Will monitor I/O closely. #4 Generalized weakness, secondary to #1 and #2 - Patient has had increasing difficulty recovering his strength after his acute illnesses. - Will monitor for the next couple of days and consider PT/OT consults depending on how he recovers this time. #5 COPD - Patient does have cough and dyspnea but they are at baseline. - No prednisone indicated at this time but will monitor closely. - Continue home controller inhalers. Will do albuterol nebs PRN instead of albuterol inhaler PRN. #6 Chronic Atrial Fibrillation #7 Chronic Anticoagulation - INR slightly subtherapeutic at 1.6 today. - Will continue warfarin per home schedule and recheck INR in am; anticipate INR to increase with antibiotics. - Will continue metoprolol and diltiazem but with holding parameters. #8 Chronic Kidney Disease, stage III - [employer] stable at 1.5, which is his baseline. - Continue to recheck labs daily. #9 Chronic Respiratory Failure with Hypoxia #10 Pulmonary Hypertension - Continue oxygen per home schedule. - Will increase PRN. #11 Constipation #12 Gout #13 Hyperlipidemia - Continue home medications. Patient is admitted to acute - will require at least 2 more days of acute hospitalization as we await speciation and susceptibility on his blood cultures. He will then also likely require a swing bed stay for ongoing IV antibiotics and likely therapies as well. Will require transfer to [place] if an Echo is needed as we are unable to get that done inpatient here. No VTE prophylaxis is indicated as INR therapeutic as recently as yesterday and only down to 1.6 today; will start lovenox if under 1.5 tomorrow. Code status is DNR/ DNI, confirmed with patient on admission and consistent with patient's known assisted wishes.
[2017-10-12] MEDS ORDERED: Furosemide 20 MG/2 ML VIAL IV ONE ×2 (08:45→16:32)
[2017-10-12] MEDS: Cefepime 1 GM in Sodium Chloride 0.9% 100 ML IV SCH (16:25)
[2017-10-12] MEDS: Metoprolol Succinate 25 MG Tab.ER PO SCH (19:45)
[2017-10-12] MEDS: Warfarin 5 MG Tab PO SCH (19:46)
[2017-10-12] MEDS: Sodium Chloride 0.9% 10 ML Syringe FLUSH PRN (21:35)
[2017-10-13] MEDS: Tiotropium Inhaler 18 MCG Inhalation Powder Cap Kit of 5 INH SCH (06:31)
[2017-10-13] MEDS: Albuterol/Ipratropium 3.0-0.5 MG/3 ML Neb Soln INH SCH ×2 (07:10→20:12)
[2017-10-13] MEDS: Diltiazem 180 MG Cap.CD PO SCH (07:40)
[2017-10-13] MEDS: Magnesium Oxide 400 MG Tab PO SCH (07:40)
[2017-10-13] MEDS: Allopurinol 300 MG Tab PO SCH (07:40)
[2017-10-13] MEDS: Formoterol/Mometasone 200-5 MCG 8.8 GM Inhaler IH SCH ×2 (07:41→20:08)
[2017-10-13 08:19] LABS: ANION GAP 11.9 mmol/L (10-20)
[2017-10-13] MEDS ORDERED: Enoxaparin 40 MG/0.4 ML Syringe SUBCUT ONE (08:23)
--- NOTE | 2017-10-13 08:29 | PCM.PN ---
- General Info Date of Service: 10/13/17 Subjective Update: Still feeling quite weak. Tried to get out of bed and take a few steps this am but was barely able to stand with the assistance of 2. No chills overnight. Cough is the same; no shortness of breath or chest pain. - Review of Systems General: Reports: Weakness. Denies: Fever, Chills HEENT: Reports: No Symptoms Pulmonary: Reports: No Symptoms Cardiovascular: Reports: No Symptoms Gastrointestinal: Reports: No Symptoms Genitourinary: Reports: No Symptoms Musculoskeletal: Reports: No Symptoms Skin: Reports: No Symptoms Neurological: Reports: No Symptoms - Patient Data Vitals - Most Recent: Last Vital Signs Temp 36.6 C 10/13/17 05:13 Pulse 77 10/13/17 05:13 Resp 22 H 10/13/17 05:13 BP 105/59 L 10/13/17 05:13 Pulse Ox 93 L 10/13/17 07:11 Weight - Most Recent: 99.391 kg I&O - Last 24 Hours: Intake & Output 10/12/17 10/13/17 10/13/17 22:59 06:59 14:59 Intake Total 450 900 Output Total 850 1400 Balance -400 -500 Lab Results Last 24 Hours: Laboratory Results - last 24 hr 10/13/17 10/13/17 10/13/17 Range/Units 07:15 07:15 07:15 WBC 8.1 (4.0-10.0) x10^3/uL RBC 4.68 (4.5-6.0) x10^6/uL Hgb 15.9 (14.0-18.0) g/dL Hct 47.6 (40.0-52.0) % MCV 101.7 H (78.0-93.0) fL MCH 34.0 H (26.0-32.0) pg MCHC 33.4 (32.0-36.0) g/dL RDW Coeff of Lety 13.5 (10.0-15.0) % Plt Count 125 L (130-400) x10^3/uL Add Manual Diff Yes PT 14.9 H (9.6-11.4) SEC INR 1.4 L (2.0-3.5) Sodium 137 (136-145) mmol/L Potassium 3.9 (3.5-5.1) mmol/L Chloride 101 (98-107) mmol/L Carbon Dioxide 28 (21-32) mmol/L Anion Gap 11.9 (10-20) mmol/L BUN 25 H (7-18) mg/dL Creatinine 1.5 H (0.70-1.30) mg/dL Est Cr Clr Drug Dosing 40.24 mL/min Estimated GFR (MDRD) 45 Glucose 105 (74-106) mg/dL Calcium 8.8 (8.5-10.1) mg/dL C-Reactive Protein 5.7 H (<=0.9) mg/dL Joce Results Last 24 Hours: Microbiology 10/11/17 13:16 Aerobic Blood Culture - Preliminary Blood - Venous Gram Positive Cocci In Chains Anaerobic Blood Culture - Preliminary Gram Positive Cocci In Chains 10/11/17 13:22 Aerobic Blood Culture - Preliminary Blood - Venous - Lab Draw Gram Positive Cocci In Chains Anaerobic Blood Culture - Preliminary Gram Positive Cocci In Chains 10/11/17 14:45 MRSA Surveillance Culture - Final Nares, Unspecified NO MRSA ISOLATED 10/11/17 12:56 Urine Culture - Preliminary Urine, Urostromy Gram Negative Rods Med Orders - Current: Current Medications Acetaminophen (Tylenol Extra Strength) 1,000 mg PO Q8H PRN PRN Reason: Pain Last Admin: 10/12/17 06:18 Dose: 1,000 mg Albuterol/Ipratropium (Duoneb 3.0-0.5 Mg/3 Ml) 3 ml INH BIDRT [facility] Last Admin: 10/13/17 07:10 Dose: 3 ml Allopurinol (Zyloprim) 300 mg PO DAILY [facility] Last Admin: 10/13/17 07:40 Dose: 300 mg Bisacodyl (Dulcolax) 5 mg PO DAILY PRN PRN Reason: Constipation Diltiazem HCl (Cardizem Cd) 180 mg PO DAILY [facility] Last Admin: 10/13/17 07:40 Dose: 180 mg Enoxaparin Sodium (Lovenox) 40 mg SUBCUT ONETIME ONE Stop: 10/13/17 08:24 Furosemide (Lasix) 20 mg IV BIDDIURETIC [facility] Cefepime HCl 1 gm/ Sodium (Chloride) 100 mls @ 200 mls/hr IV Q24H [facility] Last Admin: 10/12/17 16:25 Dose: 200 mls/hr Lactulose (Cephulac) 20 gm PO TID PRN PRN Reason: CONSTIPATION Magnesium Oxide (Magnesium Oxide) 400 mg PO DAILY [facility] Last Admin: 10/13/17 07:40 Dose: 400 mg Metoprolol Succinate (Toprol Xl) 25 mg PO DAILY@1999 [facility] Last Admin: 10/12/17 19:45 Dose: 25 mg Mometasone Furoate/Formoterol Fumar (Dulera 200-5 Mcg) 2 puff IH Q12H [facility] Last Admin: 10/13/17 07:41 Dose: 2 puff Senna/Docusate Sodium (Senna Plus) 1 tab PO BID [facility] Last Admin: 10/13/17 07:40 Dose: 1 tab Sodium Chloride (Saline Flush) 10 ml FLUSH ASDIRECTED PRN PRN Reason: Keep Vein Open Last Admin: 10/12/17 21:35 Dose: 10 ml Tiotropium [place] (Spiriva Handihaler) 18 mcg INH DAILY@07 [facility] Last Admin: 10/13/17 06:31 Dose: 18 mcg Warfarin Sodium (Coumadin) 2.5 mg PO Fr@1999 [facility] Warfarin Sodium (Coumadin) 5 mg PO SuMoTuWeThSa@1999 [facility] Last Admin: 10/12/17 19:46 Dose: 5 mg Discontinued Medications Ceftriaxone Sodium (Rocephin) 1 gm IVPUSH STAT ONE Stop: 10/11/17 12:57 Last Admin: 10/11/17 13:21 Dose: 1 gm Furosemide (Lasix) 40 mg IV ONETIME ONE Stop: 10/11/17 14:26 Last Admin: 10/11/17 14:36 Dose: 40 mg Furosemide (Lasix) 20 mg IV ONETIME ONE Stop: 10/12/17 08:46 Last Admin: 10/12/17 09:42 Dose: 20 mg Furosemide (Lasix) 20 mg IV ONETIME ONE Stop: 10/12/17 16:33 Last Admin: 10/12/17 17:07 Dose: 20 mg Sodium Chloride (Normal Saline) 1,000 mls @ 999 mls/hr IV ONETIME ONE Stop: 10/11/17 13:56 Last Admin: 10/11/17 13:05 Dose: 999 mls/hr Vancomycin HCl 1,500 mg/ (Sodium Chloride) 250 mls @ 167 mls/hr IV ONETIME ONE Stop: 10/12/17 11:29 Last Admin: 10/12/17 09:45 Dose: 167 mls/hr Mometasone Furoate/Formoterol Fumar (Dulera 200-5 Mcg) 2 puff IH BIDRT [facility] Last Admin: 10/11/17 20:03 Dose: 2 puff Mometasone Furoate/Formoterol Fumar (Dulera 200-5 Mcg) 2 puff IH Q12H [facility] Last Admin: 10/11/17 20:03 Dose: 2 puff Senna/Docusate Sodium (Senna Plus) 1 tab PO BID@0700,1700 [facility] Last Admin: 10/11/17 17:50 Dose: Not Given - Exam General: Alert, Cooperative, No Acute Distress HEENT: Mucous Membr. Moist/[place] Neck: Supple, Trachea Midline, No Thyromegaly. No: Lymphadenopathy Lungs: Normal Respiratory Effort, Decreased Breath Sounds (LLL), Rhonchi (LLL) Cardiovascular: Regular Rate, Irregular Rhythm, Murmurs GI/Abdominal Exam: Normal Bowel Sounds, Soft, Non-Tender, No Organomegaly, No Distention, No Mass Extremities: Normal Capillary Refill, Pedal Edema (trace bilaterally) Peripheral Pulses: 2+: Radial (L), Radial (R) Skin: Warm, Dry, Intact - Problem List & Annotations (1) Gram-positive bacteremia SNOMED Code(s): 182006536666 Code(s): R78.81 - BACTEREMIA Status: Acute Current Visit: Yes (2) UTI, Urinary tract infectious disease SNOMED Code(s): 68527577 Code(s): N39.0 - URINARY TRACT INFECTION, SITE NOT SPECIFIED Status: Acute Priority: Medium Current Visit: Yes (3) Diastolic heart failure SNOMED Code(s): 644890988 Code(s): I50.30 - UNSPECIFIED DIASTOLIC (CONGESTIVE) HEART FAILURE Status: Acute Current Visit: No Qualifiers: Heart failure chronicity: acute on chronic Qualified Code(s): I50.33 - Acute on chronic diastolic (congestive) heart failure (4) Weakness SNOMED Code(s): 43002582 Code(s): R53.1 - WEAKNESS Status: Acute Current Visit: No (5) COPD (chronic obstructive pulmonary disease) SNOMED Code(s): 86793162 Code(s): J44.9 - CHRONIC OBSTRUCTIVE PULMONARY DISEASE, UNSPECIFIED Status : Chronic Current Visit: No Qualifiers: COPD type: unspecified COPD Qualified Code(s): J44.9 - Chronic obstructive pulmonary disease, unspecified (6) Chronic atrial fibrillation SNOMED Code(s): 448391687 Code(s): I48.2 - CHRONIC ATRIAL FIBRILLATION Status: Chronic Current Visit: No (7) Chronic anticoagulation SNOMED Code(s): 005233525 Code(s): Z79.01 - [employer] (CURRENT) USE OF ANTICOAGULANTS Status: Chronic Current Visit: No Annotation/Comment:: See above. (8) Chronic kidney disease SNOMED Code(s): 678828433 Code(s): N18.9 - CHRONIC KIDNEY DISEASE, UNSPECIFIED Status: Chronic Current Visit: No Qualifiers: Chronic kidney disease stage: stage 3 (moderate) Qualified Code(s): N18.3 - Chronic kidney disease, stage 3 (moderate) (9) Chronic respiratory failure with hypoxia SNOMED Code(s): 087606286 Code(s): J96.11 - CHRONIC RESPIRATORY FAILURE WITH HYPOXIA Status: Chronic Current Visit: No (10) Pulmonary hypertension SNOMED Code(s): 30246151 Code(s): I27.2 - OTHER SECONDARY PULMONARY HYPERTENSION * DO NOT USE * Status: Chronic Current Visit: No (11) Constipation SNOMED Code(s): 25713361 Code(s): K59.00 - CONSTIPATION, UNSPECIFIED Status: Chronic Current Visit : No Qualifiers: Constipation type: unspecified constipation type Qualified Code(s): K59.00 - Constipation, unspecified (12) Gout SNOMED Code(s): 19582590 Code(s): M10.9 - GOUT, UNSPECIFIED Status: Chronic Current Visit: No Qualifiers: (13) Hypercholesteremia SNOMED Code(s): 13272422 Code(s): E78.0 - PURE HYPERCHOLESTEROLEMIA * DO NOT USE * Status: Chronic Current Visit: No - Problem List Review Problem List Initiated/Reviewed/Updated: Yes - My Orders Last 24 Hours: My Active Orders 10/12/17 08:00 Allopurinol [Zyloprim] 300 mg PO DAILY Diltiazem [Cardizem CD] 180 mg PO DAILY Magnesium Oxide 400 mg PO DAILY Mometasone/Formoterol [Dulera 200-5 MCG] 2 puff IH Q12H 10/13/17 07:15 CBC WITH AUTO DIFF [HEME] Routine CULTURE BLOOD [BC] Routine MANUAL DIFFERENTIAL QA/NC [HEME] Routine 10/13/17 07:26 CULTURE BLOOD [BC] Routine 10/13/17 08:23 Enoxaparin [Lovenox] 40 mg SUBCUT ONETIME ONE 10/13/17 08:24 Furosemide [Lasix] 20 mg IV BIDDIURETIC 10/14/17 05:11 BASIC METABOLIC PANEL,BMP [CHEM] Routine CBC WITH AUTO DIFF [HEME] Routine INR,PT,PROTHROMBIN TIME [COAG] Routine 10/14/17 07:00 CBC W/O DIFF,HEMOGRAM [HEME] Q3D 10/16/17 20:00 Warfarin [Coumadin] 2.5 mg PO Fr@199910/17/17 07:00 CBC W/O DIFF,HEMOGRAM [HEME] Q3D 10/20/17 07:00 CBC W/O DIFF,HEMOGRAM [HEME] Q3D 10/23/17 07:00 CBC W/O DIFF,HEMOGRAM [HEME] Q3D 10/26/17 07:00 CBC W/O DIFF,HEMOGRAM [HEME] Q3D 10/29/17 07:00 CBC W/O DIFF,HEMOGRAM [HEME] Q3D 11/01/17 07:00 CBC W/O DIFF,HEMOGRAM [HEME] Q3D - Assessment Assessment:: 82 yo male admitted with presumed UTI after presenting with generalized weakness. Now with 4/4 positive blood cultures for gram positive cocci. Symptoms mainly weakness and this is about the same as admission. Vital signs and labs stable. - Plan Plan:: #1 Gram Positive Bacteremia - Source is unclear at this point. Likely has some pneumonia underlying the left side pleural effusion. Source is not the urine as urine culture growing gram negatives. - Will repeat CXR tomorrow. - Continue cefepime and vancomycin. Vancomycin dosing discussed with pharmacy and will do 1,000 mg every 24 hours with plan to do a trough prior to dose 4. - Discussed the case with ID yesterday. Will plan to touch base again with them after speciation of the blood cultures is available, which should be later today or early tomorrow. - Blood cultures repeated today. If these are positive, will need an Echo and, therefore, transfer to [place]. - CRP is up today but patient does not meet any sepsis criteria. - Bolus IV fluids PRN. #2 UTI - U/A significantly abnormal. - Patient's last 3 urine cultures have been pseudomonas susceptible to cefepime ; however, he is now growing gram positive cocci in his blood. - Will continue cefepime. - Urine culture showing gram negatives. - Blood cultures 4/4 positive for gram positive cocci, likely not related to UTI. #3 Acute on Chronic Diastolic CHF - Weights stable. - Being cautious with his diuresis in the absence of significant symptoms and the presence of bacteremia. - Will repeat BNP and CXR tomorrow. - Continue 20 mg IV lasix BID. - Will monitor I/O closely. #4 Generalized weakness, secondary to #1-3 - Patient has had increasing difficulty recovering his strength after his acute illnesses. - Likely not ready yet for PT/OT consults. Will likely require swing bed after this acute hospitalization. #5 COPD - Patient does have cough and dyspnea but they are at baseline. - No prednisone indicated at this time but will monitor closely. - Continue home controller inhalers. Will do albuterol nebs PRN instead of albuterol inhaler PRN. #6 Chronic Atrial Fibrillation #7 Chronic Anticoagulation - INR further subtherapeutic at 1.4 today. - Tomorrow will be day 3 of antibiotics and I expect his INR will be up as a result tomorrow. - Will give a dose of lovenox today to cover for VTE prophylaxis as CrCl remains >30. Reassess need for lovenox daily depending on INR results. - Metoprolol and diltiazem continued but with holding parameters. #8 Chronic Kidney Disease, stage III - [employer] stable at 1.5, which is his baseline. - Continue to recheck labs daily. #9 Chronic Respiratory Failure with Hypoxia #10 Pulmonary Hypertension - Continue oxygen per home schedule. - Will increase PRN. #11 Constipation #12 Gout #13 Hyperlipidemia - Continue home medications. Patient is admitted to acute - unclear disposition timing at this point as clinical status remains tenuous and we are still awaiting final culture results. He will then also likely require a swing bed stay for ongoing IV antibiotics and likely therapies as well. Will require transfer to [place] if an Echo is needed as we are unable to get that done inpatient here. Lovenox to be given today given INR of 1.4; will evaluate need for this daily. INR recheck tomorrow. Code status is DNR/DNI, confirmed with patient on admission and consistent with patient's known residential wishes.
[2017-10-13] MEDS: Furosemide 20 MG/2 ML VIAL IV SCH ×2 (09:12→15:55)
[2017-10-13] MEDS: Sodium Chloride 0.9% 10 ML Syringe FLUSH PRN ×4 (09:13→20:04)
[2017-10-13] MEDS: Cefepime 1 GM in Sodium Chloride 0.9% 100 ML IV SCH (15:55)
[2017-10-13] MEDS: Metoprolol Succinate 25 MG Tab.ER PO SCH (20:06)
[2017-10-13] MEDS: Warfarin 5 MG Tab PO SCH (20:08)
[2017-10-14] MEDS: Tiotropium Inhaler 18 MCG Inhalation Powder Cap Kit of 5 INH SCH (06:42)
[2017-10-14] MEDS: Albuterol/Ipratropium 3.0-0.5 MG/3 ML Neb Soln INH SCH (07:07)
[2017-10-14] MEDS: Formoterol/Mometasone 200-5 MCG 8.8 GM Inhaler IH SCH (07:33)
[2017-10-14] MEDS: Magnesium Oxide 400 MG Tab PO SCH (07:34)
[2017-10-14] MEDS: Diltiazem 180 MG Cap.CD PO SCH (07:34)
[2017-10-14] MEDS: Allopurinol 300 MG Tab PO SCH (07:34)
[2017-10-14] MEDS: Furosemide 20 MG/2 ML VIAL IV SCH ×2 (07:34→15:08)
[2017-10-14] MEDS: Sodium Chloride 0.9% 10 ML Syringe FLUSH PRN ×3 (07:34→15:08)
[2017-10-14 08:09] LABS: ANION GAP 11.7 mmol/L (10-20)
[2017-10-14] MEDS ORDERED: Furosemide 20 MG/2 ML VIAL IV ONE (08:44)
--- NOTE | 2017-10-14 08:44 | PCM.PN ---
- General Info Date of Service: 10/14/17 Subjective Update: Patient feels slightly less weak this morning and is able to sit up in bed on his own today. He still is not able to take any steps but is standing with assistance. He continues with cough and shortness of breath but states these are no different than his usual. No chest pain, fever, or chills. He is eating well. Nursing staff note he has not been sleeping well these past couple of nights. - Review of Systems General: Reports: Weakness. Denies: Fever, Chills HEENT: Reports: No Symptoms Pulmonary: Reports: Shortness of Breath, Cough Cardiovascular: Reports: No Symptoms Gastrointestinal: Reports: No Symptoms Genitourinary: Reports: No Symptoms Musculoskeletal: Reports: No Symptoms Skin: Reports: No Symptoms Neurological: Reports: No Symptoms - Patient Data Vitals - Most Recent: Last Vital Signs Temp 36.2 C 10/14/17 05:14 Pulse 79 10/14/17 05:14 Resp 22 H 10/14/17 05:14 BP 109/66 10/14/17 05:14 Pulse Ox 95 10/14/17 07:08 Weight - Most Recent: 100.425 kg I&O - Last 24 Hours: Intake & Output 10/13/17 10/14/17 10/14/17 22:59 06:59 14:59 Intake Total 1090 800 Output Total 750 1700 Balance 340 -900 Lab Results Last 24 Hours: Laboratory Results - last 24 hr 10/13/17 10/14/17 10/14/17 Range/Units 07:15 06:26 06:26 WBC 7.6 (4.0-10.0) x10^3/uL RBC 4.42 L (4.5-6.0) x10^6/uL Hgb 15.2 (14.0-18.0) g/dL Hct 44.8 (40.0-52.0) % MCV 101.4 H (78.0-93.0) fL MCH 34.4 H (26.0-32.0) pg MCHC 33.9 (32.0-36.0) g/dL RDW Coeff of Lety 13.3 (10.0-15.0) % Plt Count 130 (130-400) x10^3/uL Add Manual Diff Yes Neutrophils % (Manual) 40 L 48 L (50-80) % Band Neutrophils % 5 9 H (0-6) % Lymphocytes % (Manual) 37 40 (25-50) % Monocytes % (Manual) 17 H (2-11) % Eosinophils % (Manual) 1 (0-4) % Metamyelocytes % 1 H 2 H (0) % Vacuolated Monocytes Rare Smudge Cells Few H Toxic Granulation Rare Platelet Estimate Decreased L Decreased L Macrocytosis 1+ slight H 1+ slight H Rouleaux 1+ slight H PT 15.6 H (9.6-11.4) SEC INR 1.5 L (2.0-3.5) Sodium (136-145) mmol/L Potassium (3.5-5.1) mmol/L Chloride (98-107) mmol/L Carbon Dioxide (21-32) mmol/L Anion Gap (10-20) mmol/L BUN (7-18) mg/dL Creatinine (0.70-1.30) mg/dL Est Cr Clr Drug Dosing mL/min Estimated GFR (MDRD) Glucose (74-106) mg/dL Calcium (8.5-10.1) mg/dL // Range/Units 06:26 WBC (4.0-10.0) x10^3/uL RBC (4.5-6.0) x10^6/uL Hgb (14.0-18.0) g/dL Hct (40.0-52.0) % MCV (78.0-93.0) fL MCH (26.0-32.0) pg MCHC (32.0-36.0) g/dL RDW Coeff of Lety (10.0-15.0) % Plt Count (130-400) x10^3/uL Add Manual Diff Neutrophils % (Manual) (50-80) % Band Neutrophils % (0-6) % Lymphocytes % (Manual) (25-50) % Monocytes % (Manual) (2-11) % Eosinophils % (Manual) (0-4) % Metamyelocytes % (0) % Vacuolated Monocytes Smudge Cells Toxic Granulation Platelet Estimate Macrocytosis Rouleaux PT (9.6-11.4) SEC INR (2.0-3.5) Sodium 139 (136-145) mmol/L Potassium 3.7 (3.5-5.1) mmol/L Chloride 103 (98-107) mmol/L Carbon Dioxide 28 (21-32) mmol/L Anion Gap 11.7 (10-20) mmol/L BUN 25 H (7-18) mg/dL Creatinine 1.2 (0.70-1.30) mg/dL Est Cr Clr Drug Dosing 50.30 mL/min Estimated GFR (MDRD) 58 Glucose 94 (74-106) mg/dL Calcium 8.6 (8.5-10.1) mg/dL Joce Results Last 24 Hours: Microbiology 10/13/17 07:26 Aerobic Blood Culture - Preliminary Blood NO GROWTH AFTER 1 DAY Anaerobic Blood Culture - Preliminary NO GROWTH AFTER 1 DAY 10/13/17 07:15 Aerobic Blood Culture - Preliminary Blood NO GROWTH AFTER 1 DAY Anaerobic Blood Culture - Preliminary NO GROWTH AFTER 1 DAY 10/11/17 13:22 Aerobic Blood Culture - Preliminary Blood - Venous - Lab Draw Gram Positive Cocci In Chains Anaerobic Blood Culture - Preliminary Gram Positive Cocci In Chains 10/11/17 13:16 Aerobic Blood Culture - Preliminary Blood - Venous Gram Positive Cocci In Chains Anaerobic Blood Culture - Preliminary Gram Positive Cocci In Chains 10/11/17 12:56 Urine Culture - Final Urine, Urostromy Pseudomonas Aeruginosa Med Orders - Current: Current Medications Acetaminophen (Tylenol Extra Strength) 1,000 mg PO Q8H PRN PRN Reason: Pain Last Admin: 10/12/17 06:18 Dose: 1,000 mg Albuterol/Ipratropium (Duoneb 3.0-0.5 Mg/3 Ml) 3 ml INH BIDRT [facility] Last Admin: 10/14/17 07:07 Dose: 3 ml Allopurinol (Zyloprim) 300 mg PO DAILY [facility] Last Admin: 10/14/17 07:34 Dose: 300 mg Bisacodyl (Dulcolax) 5 mg PO DAILY PRN PRN Reason: Constipation Diltiazem HCl (Cardizem Cd) 180 mg PO DAILY [facility] Last Admin: 10/14/17 07:34 Dose: 180 mg Furosemide (Lasix) 20 mg IV BIDDIURETIC [facility] Last Admin: 10/14/17 07:34 Dose: 20 mg Cefepime HCl 1 gm/ Sodium (Chloride) 100 mls @ 200 mls/hr IV Q24H [facility] Last Admin: 10/13/17 15:55 Dose: 200 mls/hr Vancomycin HCl 1 gm/ Sodium (Chloride) 250 mls @ 250 mls/hr IV Q24H [facility] Last Admin: 10/13/17 10:29 Dose: 250 mls/hr Lactulose (Cephulac) 20 gm PO TID PRN PRN Reason: CONSTIPATION Magnesium Oxide (Magnesium Oxide) 400 mg PO DAILY [facility] Last Admin: 10/14/17 07:34 Dose: 400 mg Metoprolol Succinate (Toprol Xl) 25 mg PO DAILY@1999 [facility] Last Admin: 10/13/17 20:06 Dose: 25 mg Mometasone Furoate/Formoterol Fumar (Dulera 200-5 Mcg) 2 puff IH Q12H [facility] Last Admin: 10/14/17 07:33 Dose: 2 puff Senna/Docusate Sodium (Senna Plus) 1 tab PO BID [facility] Last Admin: 10/14/17 07:34 Dose: 1 tab Sodium Chloride (Saline Flush) 10 ml FLUSH ASDIRECTED PRN PRN Reason: Keep Vein Open Last Admin: 10/14/17 07:34 Dose: 10 ml Tiotropium [place] (Spiriva Handihaler) 18 mcg INH DAILY@07 [facility] Last Admin: 10/14/17 06:42 Dose: 18 mcg Warfarin Sodium (Coumadin) 2.5 mg PO Fr@1999 [facility] Warfarin Sodium (Coumadin) 5 mg PO SuMoTuWeThSa@1999 [facility] Last Admin: 10/13/17 20:08 Dose: 5 mg Discontinued Medications Ceftriaxone Sodium (Rocephin) 1 gm IVPUSH STAT ONE Stop: 10/11/17 12:57 Last Admin: 10/11/17 13:21 Dose: 1 gm Enoxaparin Sodium (Lovenox) 40 mg SUBCUT ONETIME ONE Stop: 10/13/17 08:24 Last Admin: 10/13/17 09:12 Dose: 40 mg Furosemide (Lasix) 40 mg IV ONETIME ONE Stop: 10/11/17 14:26 Last Admin: 10/11/17 14:36 Dose: 40 mg Furosemide (Lasix) 20 mg IV ONETIME ONE Stop: 10/12/17 08:46 Last Admin: 10/12/17 09:42 Dose: 20 mg Furosemide (Lasix) 20 mg IV ONETIME ONE Stop: 10/12/17 16:33 Last Admin: 10/12/17 17:07 Dose: 20 mg Sodium Chloride (Normal Saline) 1,000 mls @ 999 mls/hr IV ONETIME ONE Stop: 10/11/17 13:56 Last Admin: 10/11/17 13:05 Dose: 999 mls/hr Vancomycin HCl 1,500 mg/ (Sodium Chloride) 250 mls @ 167 mls/hr IV ONETIME ONE Stop: 10/12/17 11:29 Last Admin: 10/12/17 09:45 Dose: 167 mls/hr Mometasone Furoate/Formoterol Fumar (Dulera 200-5 Mcg) 2 puff IH BIDRT [facility] Last Admin: 10/11/17 20:03 Dose: 2 puff Mometasone Furoate/Formoterol Fumar (Dulera 200-5 Mcg) 2 puff IH Q12H [facility] Last Admin: 10/11/17 20:03 Dose: 2 puff Senna/Docusate Sodium (Senna Plus) 1 tab PO BID@0700,1700 [facility] Last Admin: 10/11/17 17:50 Dose: Not Given - Exam General: Alert, Cooperative, No Acute Distress HEENT: Mucous Membr. Moist/[place] Neck: Supple, Trachea Midline, No Thyromegaly. No: Lymphadenopathy Lungs: Normal Respiratory Effort, Decreased Breath Sounds (LLL) Cardiovascular: Regular Rate, Irregular Rhythm, Murmurs GI/Abdominal Exam: Normal Bowel Sounds, Soft, Non-Tender, No Organomegaly, No Distention, No Mass Extremities: Non-Tender, Normal Capillary Refill, Pedal Edema (trace bilaterally ) Peripheral Pulses: 2+: Radial (L), Radial (R) Skin: Warm, Dry, Intact Neurological: No New Focal Deficit - Problem List & Annotations (1) Gram-positive bacteremia SNOMED Code(s): 549977576405 Code(s): R78.81 - BACTEREMIA Status: Acute Current Visit: Yes (2) UTI, Urinary tract infectious disease SNOMED Code(s): 29875872 Code(s): N39.0 - URINARY TRACT INFECTION, SITE NOT SPECIFIED Status: Acute Priority: Medium Current Visit: Yes (3) Diastolic heart failure SNOMED Code(s): 590704262 Code(s): I50.30 - UNSPECIFIED DIASTOLIC (CONGESTIVE) HEART FAILURE Status: Acute Current Visit: No Qualifiers: Heart failure chronicity: acute on chronic Qualified Code(s): I50.33 - Acute on chronic diastolic (congestive) heart failure (4) Weakness SNOMED Code(s): 66693778 Code(s): R53.1 - WEAKNESS Status: Acute Current Visit: No (5) COPD (chronic obstructive pulmonary disease) SNOMED Code(s): 53925433 Code(s): J44.9 - CHRONIC OBSTRUCTIVE PULMONARY DISEASE, UNSPECIFIED Status : Chronic Current Visit: No Qualifiers: COPD type: unspecified COPD Qualified Code(s): J44.9 - Chronic obstructive pulmonary disease, unspecified (6) Chronic atrial fibrillation SNOMED Code(s): 093454936 Code(s): I48.2 - CHRONIC ATRIAL FIBRILLATION Status: Chronic Current Visit: No (7) Chronic anticoagulation SNOMED Code(s): 103151850 Code(s): Z79.01 - SENIOR CARE (CURRENT) USE OF ANTICOAGULANTS Status: Chronic Current Visit: No Annotation/Comment:: See above. (8) Chronic kidney disease SNOMED Code(s): 500943170 Code(s): N18.9 - CHRONIC KIDNEY DISEASE, UNSPECIFIED Status: Chronic Current Visit: No Qualifiers: Chronic kidney disease stage: stage 3 (moderate) Qualified Code(s): N18.3 - Chronic kidney disease, stage 3 (moderate) (9) Chronic respiratory failure with hypoxia SNOMED Code(s): 443478901 Code(s): J96.11 - CHRONIC RESPIRATORY FAILURE WITH HYPOXIA Status: Chronic Current Visit: No (10) Pulmonary hypertension SNOMED Code(s): 23159080 Code(s): I27.2 - OTHER SECONDARY PULMONARY HYPERTENSION * DO NOT USE * Status: Chronic Current Visit: No (11) Constipation SNOMED Code(s): 12319971 Code(s): K59.00 - CONSTIPATION, UNSPECIFIED Status: Chronic Current Visit : No Qualifiers: Constipation type: unspecified constipation type Qualified Code(s): K59.00 - Constipation, unspecified (12) Gout SNOMED Code(s): 48289089 Code(s): M10.9 - GOUT, UNSPECIFIED Status: Chronic Current Visit: No Qualifiers: (13) Hypercholesteremia SNOMED Code(s): 35842725 Code(s): E78.0 - PURE HYPERCHOLESTEROLEMIA * DO NOT USE * Status: Chronic Current Visit: No (14) Insomnia SNOMED Code(s): 215277407 Code(s): G47.00 - INSOMNIA, UNSPECIFIED Status: Acute Current Visit: Yes Qualifiers: Insomnia type: unspecified Qualified Code(s): G47.00 - Insomnia, unspecified - Problem List Review Problem List Initiated/Reviewed/Updated: Yes - My Orders Last 24 Hours: My Active Orders 10/13/17 08:24 Furosemide [Lasix] 20 mg IV BIDDIURETIC 10/13/17 10:00 Vancomycin 1 gm Sodium Chloride 0.9% [Normal Saline] 250 ml IV Q24H 10/13/17 11:08 Chest 1V Frontal [CR] Routine 10/14/17 06:26 BASIC METABOLIC PANEL,BMP [CHEM] Routine PRO B-TYPE NATRIUR PEPT,BNPPRO [CHEM] Routine 10/16/17 20:00 Warfarin [Coumadin] 2.5 mg PO Fr@199910/17/17 07:00 CBC W/O DIFF,HEMOGRAM [HEME] Q3D 10/20/17 07:00 CBC W/O DIFF,HEMOGRAM [HEME] Q3D 10/23/17 07:00 CBC W/O DIFF,HEMOGRAM [HEME] Q3D 10/26/17 07:00 CBC W/O DIFF,HEMOGRAM [HEME] Q3D 10/29/17 07:00 CBC W/O DIFF,HEMOGRAM [HEME] Q3D 11/01/17 07:00 CBC W/O DIFF,HEMOGRAM [HEME] Q3D - Assessment Assessment:: 82 yo male admitted with presumed UTI after presenting with generalized weakness. Now also with gram positive bacteremia. Feeling and looking somewhat improved this am. Vital signs remain stable. Labs also stable. - Plan Plan:: #1 Gram Positive Bacteremia - Source is unclear at this point. Repeat CXR yesterday negative for pneumonia. Urine growing a different organism. No other symptoms for other infection. - Clinically improving/stable on current antibiotic regimen. Therefore, will continue cefepime and vancomycin until speciation is available. Vancomycin dosing discussed with pharmacy; trough planned prior to dose 4. - Discussed the case with ID 2 days ago. Will plan to touch base again with them after speciation of the blood cultures is available, which should be later today per lab personnel. - Blood cultures repeated yesterday and negative thus far. - Depending on speciation from original blood cultures, may need transfer to [place] for an echo and ID consultation. - Patient still does not meet any sepsis criteria; bolus IV fluids PRN. #2 UTI - U/A significantly abnormal on admission. - Urine culture shows pseudomonas susceptible to all antibiotics tested. - Will continue cefepime for now in light of above. Transition to orals will be guided by above, not by his UTI. #3 Acute on Chronic Diastolic CHF - Weight up today. BNP pending from this am. - Have been cautious with his diuresis in the absence of significant symptoms and the presence of bacteremia. - CXR yesterday pm still showing significant cardiomegaly and left sided effusion. - Will give total dose of 40 mg IV lasix this morning and consider repeat this pm depending on his I/O balance today. - Will monitor I/O closely. #4 Generalized weakness, secondary to #1-3 - Patient has had increasing difficulty recovering his strength after his acute illnesses. - He could likely at least work with PT for some strengthening so this consult will be ordered today. #5 COPD - Patient does have cough and dyspnea but they are at baseline. - No prednisone indicated at this time but will monitor closely. - Continue home controller inhalers. #6 Chronic Atrial Fibrillation #7 Chronic Anticoagulation - INR up to 1.5 today. - He got lovenox yesterday for subtherapeutic INR. Anticipate his INR to be up further tomorrow with antibiotic effect. - Will hold off on additional lovenox today but repeat tomorrow if INR still < 1.6. - Metoprolol and diltiazem continued but with holding parameters. #8 Chronic Kidney Disease, stage III - [employer] down to 1.2 today, which is lower than his baseline. - Continue to recheck labs daily. #9 Chronic Respiratory Failure with Hypoxia #10 Pulmonary Hypertension - Continue oxygen per home schedule. - Will increase PRN. #11 Constipation #12 Gout #13 Hyperlipidemia - Continue home medications. #14 Insomnia - Will schedule melatonin at bedtime. Patient is admitted to [facility] - unclear disposition timing at this point as clinical status remains tenuous and we are still awaiting final culture results. He will then also likely require a swing bed stay for ongoing IV antibiotics and likely therapies as well. Will require transfer to [place] if an Echo is needed as we are unable to get that done inpatient here. No lovenox today given INR up to 1.5. INR recheck tomorrow. Will continue to evaluate the need for lovenox daily depending on his INR results. Code status is DNR/DNI, confirmed with patient on admission and consistent with patient's known shelter wishes.
[2017-10-14 14:46] VITALS: BP 118/76
[2017-10-14] MEDS: Cefepime 1 GM in Sodium Chloride 0.9% 100 ML IV SCH (15:08)
--- NOTE | 2017-10-14 15:25 | PCM.DCSUM1 ---
Discharge Summary - Hospital Course Brief History: Mr. Aragon is an 82 yo male who was admitted with a presumed UTI after presenting to the ER with 24 hours of chills and generalized weakness. - Discharge Data Discharge Date: 10/14/17 Discharge Disposition: DC/Tfer to Acute Hospital 02 Condition: Good - Discharge Diagnosis/Problem(s) (1) Gram-positive bacteremia SNOMED Code(s): 115176897075 ICD Code: R78.81 - BACTEREMIA Status: Acute Current Visit: Yes (2) UTI, Urinary tract infectious disease SNOMED Code(s): 47723235 ICD Code: N39.0 - URINARY TRACT INFECTION, SITE NOT SPECIFIED Status: Acute Priority: Medium Current Visit: Yes (3) Diastolic heart failure SNOMED Code(s): 930814712 ICD Code: I50.30 - UNSPECIFIED DIASTOLIC (CONGESTIVE) HEART FAILURE Status : Acute Current Visit: No Qualifiers: Heart failure chronicity: acute on chronic Qualified Code(s): I50.33 - Acute on chronic diastolic (congestive) heart failure (4) Weakness SNOMED Code(s): 74492704 ICD Code: R53.1 - WEAKNESS Status: Acute Current Visit: No (5) COPD (chronic obstructive pulmonary disease) SNOMED Code(s): 75405644 ICD Code: J44.9 - CHRONIC OBSTRUCTIVE PULMONARY DISEASE, UNSPECIFIED Status : Chronic Current Visit: No Qualifiers: COPD type: unspecified COPD Qualified Code(s): J44.9 - Chronic obstructive pulmonary disease, unspecified (6) Chronic atrial fibrillation SNOMED Code(s): 122721868 ICD Code: I48.2 - CHRONIC ATRIAL FIBRILLATION Status: Chronic Current Visit: No (7) Chronic anticoagulation SNOMED Code(s): 896211437 ICD Code: 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 (8) Chronic kidney disease SNOMED Code(s): 404811627 ICD Code: N18.9 - CHRONIC KIDNEY DISEASE, UNSPECIFIED Status: Chronic Current Visit: No Qualifiers: Chronic kidney disease stage: stage 3 (moderate) Qualified Code(s): N18.3 - Chronic kidney disease, stage 3 (moderate) (9) Chronic respiratory failure with hypoxia SNOMED Code(s): 021202338 ICD Code: J96.11 - CHRONIC RESPIRATORY FAILURE WITH HYPOXIA Status: Chronic Current Visit: No (10) Pulmonary hypertension SNOMED Code(s): 24574377 ICD Code: I27.2 - OTHER SECONDARY PULMONARY HYPERTENSION * DO NOT USE * Status: Chronic Current Visit: No (11) Constipation SNOMED Code(s): 43877239 ICD Code: K59.00 - CONSTIPATION, UNSPECIFIED Status: Chronic Current Visit: No Qualifiers: Constipation type: unspecified constipation type Qualified Code(s): K59.00 - Constipation, unspecified (12) Gout SNOMED Code(s): 48188945 ICD Code: M10.9 - GOUT, UNSPECIFIED Status: Chronic Current Visit: No Qualifiers: (13) Hypercholesteremia SNOMED Code(s): 66320600 ICD Code: E78.0 - PURE HYPERCHOLESTEROLEMIA * DO NOT USE * Status: Chronic Current Visit: No (14) Insomnia SNOMED Code(s): 531915768 ICD Code: G47.00 - INSOMNIA, UNSPECIFIED Status: Acute Current Visit: Yes Qualifiers: Insomnia type: unspecified Qualified Code(s): G47.00 - Insomnia, unspecified - Patient Summary/Data Consults: Consultations 10/14/17 08:54 Consult to Physical Therapy [PT Evaluation and Treatment] [CONS] Routine Hospital Course: Patient was started on cefepime for UTI coverage given history of pseudomonas. The following morning, his blood cultures returned positive in 4/4 bottles for gram positive cocci. Vancomycin was added. His urine culture ended up growing pseudomonas so there is no known source for the gram positive bacteremia. ID was consulted and recommended continuing cefepime and vancomycin with decisions on need for transfer depending on what the species was. Species today returned as enterococcus. ID consulted again and recommended transfer due to need for further work up (echo, CT abdomen and pelvis) as well as likely specialty consultation. X-rays negative for pneumonia. Patient is symptomatically feeling somewhat improved today and is less weak and confused. Vital signs have remained stable. He has never met sepsis criteria. Hospitalization was complicated by CHF exacerbation for which the patient has received IV lasix. BNP downtrending today. He likely can be transitioned back to his home lasix dosing. Hospitalization otherwise uncomplicated. See this morning's hospital progress note for further details. - Patient Instructions Diet: Heart Healthy Diet - Discharge Plan *PRESCRIPTION DRUG MONITORING PROGRAM REVIEWED*: Not Applicable *COPY OF PRESCRIPTION DRUG MONITORING REPORT IN PATIENT ALLY: Not Applicable Home Medications: Home Meds Allopurinol [Zyloprim] 300 mg PO DAILY 09/10/14 [History] Tiotropium [Spiriva HandiHaler] 1 puff PO DAILY@0700 12/24/14 [History] Magnesium Oxide [Magnesium] 500 mg PO DAILY 01/26/16 [History] Diltiazem HCl [Cartia Xt] 180 mg PO DAILY 07/04/16 [History] Bisacodyl [Dulcolax] 5 mg PO DAILY PRN 07/07/16 [History] Docusate Sodium/Sennosides [Senna Plus] 1 tab PO BID@0700,1700 07/07/16 [History ] Budesonide/Formoterol [Symbicort 160-4.5 MCG] 2 puff INH BID 09/09/16 [History] Cranberry Extract [Cranberry] 500 mg PO DAILY 09/09/16 [History] Lactobacillus Combination No.4 [Probiotic] 2 cap PO DAILY@1100 09/09/16 [History ] Lactulose [Generlac] 30 ml PO TID PRN 09/09/16 [History] Multivitamin [Multi-Vitamin Daily] 1 tab PO DAILY 09/09/16 [History] D-Mannose 1 tab PO BID@0700,1700 04/26/17 [History] Furosemide [Lasix] 40 mg PO BID@0700,199904/27/17 [History] Metoprolol Succinate [Toprol XL] 25 mg PO DAILY@199904/27/17 [History] Warfarin [Coumadin] 5 mg PO SUTUWETHSA@17004/27/17 [History] Acetaminophen [Tylenol Extra Strength] 1,000 mg PO Q8H PRN 09/19/17 [History] Warfarin [Coumadin] 2.5 mg PO MOFR #1 tab 09/22/17 [Rx] Albuterol [Proventil HFA] 1 - 2 puff INH Q4H PRN 10/11/17 [History] Albuterol/Ipratropium [DuoNeb 3.0-0.5 MG/3 ML] 3 ml INH BID 10/11/17 [History] Nystatin [Nystatin Crm] 1 applicful TOP Q3D 10/11/17 [History] Cefepime [Maxipime] 1 gm IV Q24H vial 10/14/17 [Rx] Melatonin 3 mg PO BEDTIME tablet 10/14/17 [Rx] Vancomycin 1 gm IV Q24H sdv 10/14/17 [Rx] Forms: ED Department Discharge Referrals: Larisa Ellsworth MD [Primary Care Provider] - - Discharge Summary/Plan Comment DC Time >30 min.: Yes - Patient Data Vitals - Most Recent: Last Vital Signs Temp 36.6 C 10/14/17 14:00 Pulse 90 10/14/17 14:00 Resp 18 10/14/17 14:00 BP 118/76 10/14/17 14:00 Pulse Ox 95 10/14/17 14:00 Weight - Most Recent: 100.425 kg I&O - Last 24 hours: Intake & Output 10/14/17 10/14/17 10/14/17 06:59 14:59 22:59 Intake Total 800 360 Output Total 1700 1000 Balance -900 -640 Lab Results - Last 24 hrs: Laboratory Results - last 24 hr 10/14/17 10/14/17 10/14/17 Range/Units 06:26 06:26 06:26 WBC 7.6 (4.0-10.0) x10^3/uL RBC 4.42 L (4.5-6.0) x10^6/uL Hgb 15.2 (14.0-18.0) g/dL Hct 44.8 (40.0-52.0) % MCV 101.4 H (78.0-93.0) fL MCH 34.4 H (26.0-32.0) pg MCHC 33.9 (32.0-36.0) g/dL RDW Coeff of Lety 13.3 (10.0-15.0) % Plt Count 130 (130-400) x10^3/uL Add Manual Diff Yes Neutrophils % (Manual) 48 L (50-80) % Band Neutrophils % 9 H (0-6) % Lymphocytes % (Manual) 40 (25-50) % Eosinophils % (Manual) 1 (0-4) % Metamyelocytes % 2 H (0) % Platelet Estimate Decreased L Macrocytosis 1+ slight H PT 15.6 H (9.6-11.4) SEC INR 1.5 L (2.0-3.5) Sodium 139 (136-145) mmol/L Potassium 3.7 (3.5-5.1) mmol/L Chloride 103 (98-107) mmol/L Carbon Dioxide 28 (21-32) mmol/L Anion Gap 11.7 (10-20) mmol/L BUN 25 H (7-18) mg/dL Creatinine 1.2 (0.70-1.30) mg/dL Est Cr Clr Drug Dosing 50.30 mL/min Estimated GFR (MDRD) 58 Glucose 94 (74-106) mg/dL Calcium 8.6 (8.5-10.1) mg/dL NT-Pro-B Natriuret Pep 1207 H (<=450) pg/mL KIERRA Results - Last 24 hrs: Microbiology 10/11/17 13:16 Bacterial Identification - Preliminary Blood Enterococcus Species 10/13/17 07:26 Aerobic Blood Culture - Preliminary Blood NO GROWTH AFTER 1 DAY Anaerobic Blood Culture - Preliminary NO GROWTH AFTER 1 DAY 10/13/17 07:15 Aerobic Blood Culture - Preliminary Blood NO GROWTH AFTER 1 DAY Anaerobic Blood Culture - Preliminary NO GROWTH AFTER 1 DAY 10/11/17 13:22 Aerobic Blood Culture - Preliminary Blood - Venous - Lab Draw Gram Positive Cocci In Chains Anaerobic Blood Culture - Preliminary Gram Positive Cocci In Chains 10/11/17 13:16 Aerobic Blood Culture - Preliminary Blood - Venous Gram Positive Cocci In Chains Anaerobic Blood Culture - Preliminary Gram Positive Cocci In Chains Med Orders - Current: Current Medications Acetaminophen (Tylenol Extra Strength) 1,000 mg PO Q8H PRN PRN Reason: Pain Last Admin: 10/12/17 06:18 Dose: 1,000 mg Albuterol/Ipratropium (Duoneb 3.0-0.5 Mg/3 Ml) 3 ml INH BIDRT [facility] Last Admin: 10/14/17 07:07 Dose: 3 ml Allopurinol (Zyloprim) 300 mg PO DAILY [facility] Last Admin: 10/14/17 07:34 Dose: 300 mg Bisacodyl (Dulcolax) 5 mg PO DAILY PRN PRN Reason: Constipation Diltiazem HCl (Cardizem Cd) 180 mg PO DAILY [facility] Last Admin: 10/14/17 07:34 Dose: 180 mg Furosemide (Lasix) 20 mg IV BIDDIURETIC [facility] Last Admin: 10/14/17 15:08 Dose: 20 mg Cefepime HCl 1 gm/ Sodium (Chloride) 100 mls @ 200 mls/hr IV Q24H [facility] Last Admin: 10/14/17 15:08 Dose: 200 mls/hr Vancomycin HCl 1 gm/ Sodium (Chloride) 250 mls @ 250 mls/hr IV Q24H [facility] Last Admin: 10/14/17 09:32 Dose: 250 mls/hr Lactulose (Cephulac) 20 gm PO TID PRN PRN Reason: CONSTIPATION Magnesium Oxide (Magnesium Oxide) 400 mg PO DAILY [facility] Last Admin: 10/14/17 07:34 Dose: 400 mg Melatonin (Melatonin) 3 mg PO BEDTIME [facility] Metoprolol Succinate (Toprol Xl) 25 mg PO DAILY@1999 [facility] Last Admin: 10/13/17 20:06 Dose: 25 mg Mometasone Furoate/Formoterol Fumar (Dulera 200-5 Mcg) 2 puff IH Q12H [facility] Last Admin: 10/14/17 07:33 Dose: 2 puff Senna/Docusate Sodium (Senna Plus) 1 tab PO BID [facility] Last Admin: 10/14/17 07:34 Dose: 1 tab Sodium Chloride (Saline Flush) 10 ml FLUSH ASDIRECTED PRN PRN Reason: Keep Vein Open Last Admin: 10/14/17 15:08 Dose: 10 ml Tiotropium Rogers (Spiriva Handihaler) 18 mcg INH DAILY@0700 [facility] Last Admin: 10/14/17 06:42 Dose: 18 mcg Warfarin Sodium (Coumadin) 2.5 mg PO Fr@1999 [facility] Warfarin Sodium (Coumadin) 5 mg PO SuMoTuWeThSa@1999 [facility] Last Admin: 10/13/17 20:08 Dose: 5 mg Discontinued Medications Ceftriaxone Sodium (Rocephin) 1 gm IVPUSH STAT ONE Stop: 10/11/17 12:57 Last Admin: 10/11/17 13:21 Dose: 1 gm Enoxaparin Sodium (Lovenox) 40 mg SUBCUT ONETIME ONE Stop: 10/13/17 08:24 Last Admin: 10/13/17 09:12 Dose: 40 mg Furosemide (Lasix) 40 mg IV ONETIME ONE Stop: 10/11/17 14:26 Last Admin: 10/11/17 14:36 Dose: 40 mg Furosemide (Lasix) 20 mg IV ONETIME ONE Stop: 10/12/17 08:46 Last Admin: 10/12/17 09:42 Dose: 20 mg Furosemide (Lasix) 20 mg IV ONETIME ONE Stop: 10/12/17 16:33 Last Admin: 10/12/17 17:07 Dose: 20 mg Furosemide (Lasix) 20 mg IV ONETIME ONE Stop: 10/14/17 08:45 Last Admin: 10/14/17 09:32 Dose: 20 mg Sodium Chloride (Normal Saline) 1,000 mls @ 999 mls/hr IV ONETIME ONE Stop: 10/11/17 13:56 Last Admin: 10/11/17 13:05 Dose: 999 mls/hr Vancomycin HCl 1,500 mg/ (Sodium Chloride) 250 mls @ 167 mls/hr IV ONETIME ONE Stop: 10/12/17 11:29 Last Admin: 10/12/17 09:45 Dose: 167 mls/hr Mometasone Furoate/Formoterol Fumar (Dulera 200-5 Mcg) 2 puff IH BIDRT [facility] Last Admin: 10/11/17 20:03 Dose: 2 puff Mometasone Furoate/Formoterol Fumar (Dulera 200-5 Mcg) 2 puff IH Q12H [facility] Last Admin: 10/11/17 20:03 Dose: 2 puff Senna/Docusate Sodium (Senna Plus) 1 tab PO BID@0700,1700 [facility] Last Admin: 10/11/17 17:50 Dose: Not Given *Q Meaningful Use (DIS) - VTE *Q VTE Anticoagulation Contraindications: Med/TX Not Indicated/Need
[2017-10-14] MEDS ORDERED: Melatonin 3 MG Tab PO SCH (20:00)
[2017-10-16] MEDS ORDERED: Warfarin 2.5 MG Tab PO SCH (20:00)
== END 2017-10-14 16:25 | disposition short-term general hospital (02) | DRG 689 ==
LOC: VM.ED 12:22 → UNDOADMIN 14:36 → VM.MS 14:36
PROVIDERS: ADMIT Family Medicine; ATTEND Family Medicine
DX: N39.0 Urinary tract infection, site not specified (principal); I11.0 Hypertensive heart disease with heart failure; I50.9 Heart failure, unspecified; Z85.51 Personal history of malignant neoplasm of bladder; I50.33 Acute on chronic diastolic (congestive) heart failure; I13.0 Hypertensive heart and chronic kidney disease with heart failure and stage 1 through stage 4 chronic kidney disease, or unspecified chronic kidney disease; J96.11 Chronic respiratory failure with hypoxia; R78.81 Bacteremia; I48.91 Unspecified atrial fibrillation; E78.00 Pure hypercholesterolemia, unspecified; I71.4 Abdominal aortic aneurysm, without rupture; G31.84 Mild cognitive impairment of uncertain or unknown etiology; Z87.01 Personal history of pneumonia (recurrent); R51 Headache; G47.00 Insomnia, unspecified; Z86.711 Personal history of pulmonary embolism; Z82.49 Family history of ischemic heart disease and other diseases of the circulatory system; I48.2 Chronic atrial fibrillation; N18.3 Chronic kidney disease, stage 3 (moderate); M1A.9XX0 Chronic gout, unspecified, without tophus (tophi); Z66 Do not resuscitate; J44.9 Chronic obstructive pulmonary disease, unspecified; K59.09 Other constipation; I27.20 Pulmonary hypertension, unspecified; B96.5 Pseudomonas (aeruginosa) (mallei) (pseudomallei) as the cause of diseases classified elsewhere; Z99.81 Dependence on supplemental oxygen; N20.0 Calculus of kidney; E78.5 Hyperlipidemia, unspecified; Z79.899 Other long term (current) drug therapy; Z79.01 Long term (current) use of anticoagulants; Z93.6 Other artificial openings of urinary tract status; Z87.891 Personal history of nicotine dependence; Z87.440 Personal history of urinary (tract) infections
CPT/HCPCS: 36415; 71045; 80053; 81001; 83605; 83880; 84443; 84484; 85025; 85610; 86140; 87040 ×2; 87077; 87086; 87186; 96361; 96374; 96375; 99284; 99285; J0696; J1940; J7030; J7050; 80048; 87088; 94640; 94760; A9270-GY; J0692; J1650; J3370

== ENCOUNTER 2017-11-03 23:55 | Inpatient (IN) | payer MEDICARE, BC ==
[2017-11-04] MEDS ORDERED: Sodium Chloride 0.9% 10 ML Syringe FLUSH PRN (00:12)
[2017-11-04] MEDS ORDERED: cefTRIAXone 1 GM Vial IVPUSH ONE (00:27)
[2017-11-04 01:08] LABS: CHLORIDE,CL 99 mmol/L (98-107); SODIUM,NA 135 mmol/L (136-145)
[2017-11-04] MEDS ORDERED: Piperacillin/Tazobactam 3.375 GM in Sodium Chloride 0.9% 100 ML IV SCH ×2 (02:00→16:00)
[2017-11-04] MEDS ORDERED: Furosemide 40 MG/4 ML VIAL IV ONE (02:02)
--- NOTE | 2017-11-04 02:06 | EDM.PDOC ---
ED HPI GENERAL MEDICAL PROBLEM - General Chief Complaint: General Stated Complaint: Weakness, confusion Time Seen by Provider: 11/04/17 00:11 Source of Information: Reports: Patient, Family History Limitations: Reports: No Limitations - History of Present Illness INITIAL COMMENTS - FREE TEXT/NARRATIVE: Patient brought in this evening via EMS with complaints of weakness that started this evening. Most questions are answered by his son. I did admit the patient towards the end of September of this year with a urinary tract infection as well as bacteremia. His blood culture at that time did grow enterococcus so he was transferred to [facility] in [place] for additional testing and to determine a source of the infection. A TTE and LUCRECIA were performed as there was some concern regarding vegetation on his mitral valve. These tests concluded that there was no vegetation but it was a flail valve. He was recently discharged from this facility as a swing bed patient. During which time he was receiving IV antibiotics for a enterococcus bacteremia and treated with IV Zosyn 4.5 g every 8 hours. While here he was also given physical therapy. During his time here he did improve and was sent home last October. According to his son yesterday October he was walking around town doing his normal routine with no complaints. He had good strength at that time. It's reported that they also saw him earlier November 03 with similar behaviors. It was later in the evening that he then called his son with complaints of generalized weakness, inability to ambulate, and some confusion. His son did come over and at that time they did call the ambulance service. Jarod has been hospitalized at this facility frequently over the past few months with similar urinary tract infections. With bacteremia as well as occasional COPD and CHF exacerbations. He does have a temperature this evening of 100.7F, does have atrial fibrillation which is chronic for him, heart rates in the 80s, and oxygen saturations are 91-94% on 3 L nasal cannula. Patient denies headache, chest pain, chest pressure, does endorse chills, shortness of breath which is chronic for him but not worse than usual. He did also state he had some abdominal pain on Thursday but that has resolved. He does also complain of some lower right leg and knee pain. His primary physician is Dr. Larisa Ellsworth. Onset: Sudden Onset Date: 11/03/17 Duration: Getting Worse Location: Reports: Lower Extremity, Right, Generalized Severity: Mild Worsens with: Reports: Movement Associated Symptoms: Reports: Confusion, Shortness of Breath - Related Data Allergies Allergy/AdvReac Type Severity Reaction Status Date / Time No Known Allergies Allergy Verified 11/04/17 00:08 Home Meds: Home Meds Allopurinol [Zyloprim] 300 mg PO DAILY 09/10/14 [History] Tiotropium [Spiriva HandiHaler] 1 puff PO DAILY@0700 12/24/14 [History] Magnesium Oxide [Magnesium] 500 mg PO DAILY 01/26/16 [History] Diltiazem HCl [Cartia Xt] 180 mg PO DAILY 07/04/16 [History] Bisacodyl [Dulcolax] 5 mg PO DAILY PRN 07/07/16 [History] Docusate Sodium/Sennosides [Senna Plus] 1 tab PO BID@0700,1700 07/07/16 [History ] Budesonide/Formoterol [Symbicort 160-4.5 MCG] 2 puff INH BID 09/09/16 [History] Cranberry Extract [Cranberry] 500 mg PO DAILY 09/09/16 [History] Lactobacillus Combination No.4 [Probiotic] 1 cap PO BID@,09/09/16 [History] Lactulose [Generlac] 30 ml PO TID PRN 09/09/16 [History] Multivitamin [Multi-Vitamin Daily] 1 tab PO DAILY 09/09/16 [History] D-Mannose 1 tab PO BID@0700,1700 04/26/17 [History] Furosemide [Lasix] 40 mg PO BID@0700,199904/27/17 [History] Metoprolol Succinate [Toprol XL] 25 mg PO DAILY@199904/27/17 [History] Warfarin [Coumadin] 5 mg PO SUTUWETHSA@17004/27/17 [History] Acetaminophen [Tylenol Extra Strength] 1,000 mg PO Q6H PRN 09/19/17 [History] Warfarin [Coumadin] 2.5 mg PO MOFR #1 tab 09/22/17 [Rx] Albuterol [Proventil HFA] 1 - 2 puff INH Q4H PRN 10/11/17 [History] Albuterol/Ipratropium [DuoNeb 3.0-0.5 MG/3 ML] 3 ml INH BID 10/11/17 [History] Nystatin [Nystatin Crm] 1 applicful TOP Q3D 10/11/17 [History] Melatonin 3 mg PO BEDTIME tablet 10/14/17 [Rx] Past Medical History HEENT History: Reports: Hard of Hearing, Impaired Vision Cardiovascular History: Reports: Afib, Aneurysm, Heart Failure, High Cholesterol , Hypertension, Pulmonary Hypertension, Other (See Below) Other Cardiovascular History: AAA Respiratory History: Reports: COPD, PE, SOB Other Respiratory History: hypoxia, oxygen dependent Gastrointestinal History: Reports: Chronic Constipation Genitourinary History: Reports: Hydronephrosis, Renal Calculus, UTI, Recurrent Other Genitourinary History: kidney stones Musculoskeletal History: Reports: Gout, Other (See Below) Other Musculoskeletal History: collapsed vertebra, compression fracture of spine Neurological History: Reports: Other (See Below) Other Neuro History: mild cognitive impairment Psychiatric History: Reports: Other (See Below) Other Psychiatric History: adjustment disorder Endocrine/Metabolic History: Reports: None Hematologic History: Reports: Other (See Below) Other Hematologic History: coumadin therapy Immunologic History: Reports: None Oncologic (Cancer) History: Reports: Bladder Dermatologic History: Reports: Other (See Below) Other Dermatologic History: lymphadenopathy - Infectious Disease History Infectious Disease History: Reports: None - Past Surgical History HEENT Surgical History: Reports: Cataract Surgery Other HEENT Surgeries/Procedures: Unspecific Eye surgery Cardiovascular Surgical History: Reports: AAA Repair Other Cardiovascular Surgeries/Procedures: endoluminal aortic stent Respiratory Surgical History: Reports: None GI Surgical History: Reports: Hernia, Inguinal Other GI Surgeries/Procedures: Endoluminal Aortic Stent Male Surgical History: Reports: Cystectomy, TURP-Transurethral Resection of Prostate Other Male Surgeries/Procedures: UROSTOMY Dermatological Surgical History: Reports: None Social & Family History - Family History Family Medical History: Noncontributory Cardiac: Reports: CAD Respiratory: Reports: None GI: Reports: None : Reports: None OBGYN: Reports: None Musculoskeletal: Reports: Arthritis Neurological: Reports: None Psychiatric: Reports: None Endocrine/Metabolic: Reports: Diabetes, type II Hematologic: Reports: None Immunologic: Reports: None Oncologic: Reports: Bladder, Breast, Colon, Skin - Caffeine Use Caffeine Use: Reports: Coffee - Living Situation & Occupation Living situation: Reports: , Alone Occupation: Retired ED ROS GENERAL - Review of Systems Review Of Systems: See Below Constitutional: Reports: Chills HEENT: Reports: No Symptoms Respiratory: Reports: Shortness of Breath, Cough, Sputum Cardiovascular: Reports: No Symptoms Endocrine: Reports: Fatigue GI/Abdominal: Reports: Abdominal Pain (resolved) : Reports: Hematuria Musculoskeletal: Reports: Leg Pain (right knee) Skin: Reports: No Symptoms Neurological: Reports: Confusion Psychiatric: Reports: Confusion Hematologic/Lymphatic: Reports: No Symptoms Immunologic: Reports: No Symptoms ED EXAM, GENERAL - Physical Exam Exam: See Below Exam Limited By: Altered Mental Status General Appearance: Alert, Mild Distress Eye Exam: Bilateral Eye: EOMI, Normal Inspection, PERRL Ears: Normal TMs Nose: Normal Inspection, Normal Mucosa, No Blood Throat/Mouth: Normal Inspection, Normal Lips, Normal Teeth, Normal Gums, Normal Oropharynx, Normal Voice, No Airway Compromise Head: Atraumatic, Normocephalic Neck: Normal Inspection, Supple, Non-Tender, Full Range of Motion Respiratory/Chest: No Respiratory Distress, Lungs Clear, Normal Breath Sounds, No Accessory Muscle Use, Chest Non-Tender Cardiovascular: Systolic Murmur, Irregularly Irregular Peripheral Pulses: 2+: Posterior Tibial (L), Posterior Tibial (R), Dorsalis Pedis (L), Dorsalis Pedis (R) GI/Abdominal: Normal Bowel Sounds, Soft, Non-Tender, Other (urostomy intact) Back Exam: Normal Inspection, Full Range of Motion, NT Extremities: Normal Inspection, Normal Range of Motion, Normal Capillary Refill , Leg Pain, Other (patient very weak and unable to assist in transfers) Neurological: Alert, CN II-XII Intact, Confused, Slow to Respond Psychiatric: Normal Affect, Normal Mood Skin Exam: Warm, Dry, Intact, Normal Color, No Rash Lymphatic: No Adenopathy Course - Vital Signs Last Recorded V/S: Last Vital Signs Temp 38.1 C 11/04/17 00:16 Pulse 90 11/03/17 23:55 Resp 20 11/03/17 23:55 BP 112/72 11/03/17 23:55 Pulse Ox 91 L 11/03/17 23:55 - Orders/Labs/Meds Orders: Active Orders 24 hr Category Date Time Status EKG 12 Lead [EKG Documentation Completion] [RC] URGENT Care 11/04/17 00:17 Active Abdomen Pelvis w Cont [CT] Stat Exams 11/04/17 00:12 Ordered Chest 1V Frontal [CR] Stat Exams 11/04/17 00:12 Ordered Head wo Cont [CT] Stat Exams 11/04/17 00:12 Ordered CULTURE BLOOD [BC] Stat Lab 11/04/17 00:15 Ordered CULTURE BLOOD [BC] Stat Lab 11/04/17 00:15 Ordered URINALYSIS W/MICROSCOPIC [UA W/MICROSCOPIC] [URIN] Stat Lab 11/04/17 00:16 Ordered Sodium Chloride 0.9% [Saline Flush] Med 11/04/17 00:12 Active 10 ml FLUSH ASDIRECTED PRN Blood Culture x2 Reflex Set [OM.PC] Stat Oth 11/04/17 00:12 Ordered Saline Lock Insert [OM.PC] Routine Oth 11/04/17 00:12 Ordered Medication Orders Sodium Chloride (Saline Flush) 10 ml FLUSH ASDIRECTED PRN PRN Reason: Keep Vein Open Labs: Laboratory Tests 11/04/17 11/04/17 11/04/17 Range/Units 00:20 00:29 00:29 WBC 12.5 H (4.0-10.0) x10^3/uL RBC 4.26 L (4.5-6.0) x10^6/uL Hgb 14.6 (14.0-18.0) g/dL Hct 42.6 (40.0-52.0) % MCV 100.0 H (78.0-93.0) fL MCH 34.3 H (26.0-32.0) pg MCHC 34.3 (32.0-36.0) g/dL RDW Coeff of Lety 13.3 (10.0-15.0) % Plt Count 195 (130-400) x10^3/uL Neut % (Auto) 72.1 (50.0-80.0) % Lymph % (Auto) 16.5 L (25.0-50.0) % [place] % (Auto) 11.2 H (2.0-11.0) % Eos % (Auto) 0.0 (0.0-4.0) % Baso % (Auto) 0.2 (0.2-1.2) % PT (9.6-11.4) SEC INR (2.0-3.5) Sodium 135 L (136-145) mmol/L Potassium 4.0 (3.5-5.1) mmol/L Chloride 99 (98-107) mmol/L Carbon Dioxide 27 (21-32) mmol/L Anion Gap 13.0 (10-20) mmol/L BUN 32 H (7-18) mg/dL Creatinine 1.6 H (0.70-1.30) mg/dL Est Cr Clr Drug Dosing TNP Estimated GFR (MDRD) 41 Glucose 136 H (74-106) mg/dL Lactic Acid (0.4-2.0) mmol/L Calcium 8.9 (8.5-10.1) mg/dL Corrected Calcium 9.38 (8.5-10.1) mg/dL Total Bilirubin 1.1 H (0.2-1.0) mg/dL AST 22 (15-37) U/L ALT 27 (16-63) U/L Alkaline Phosphatase 62 (46-116) U/L Creatine Kinase 72 (39-308) U/L Troponin I < 0.017 (<=0.056) ng/mL C-Reactive Protein 15.8 H (<=0.9) mg/dL NT-Pro-B Natriuret Pep 3451 H (<=450) pg/mL Total Protein 7.1 (6.4-8.2) g/dL Albumin 3.4 (3.4-5.0) g/dL Globulin 3.7 Albumin/Globulin Ratio 0.92 TSH, Ultra Sensitive 2.856 (0.358-3.74) uIU/mL Urine Color Dark yellow H (YELLOW) Urine Appearance Turbid H (CLEAR) Urine pH 7.0 (5.0-8.0) Ur Specific [place] 1.015 Urine Protein 100 H (NEGATIVE) mg/dL Urine Glucose (UA) Negative (NEGATIVE) mg/dL Urine Ketones Negative (NEGATIVE) mg/dL Urine Occult Blood Large H (NEGATIVE) Urine Nitrite Negative (NEGATIVE) Urine Bilirubin Negative (NEGATIVE) Urine Urobilinogen 0.2 (0.2) EU/dL Ur Leukocyte Esterase Large H (NEGATIVE) Urine RBC >100 H (NOT SEEN) /HPF Urine Red Cell Clumps Present Urine WBC >100 H (NOT SEEN) /HPF Urine WBC Clumps Few Ur Renal Epithelial Cell Moderate H (NEGATIVE) /HPF Amorphous Sediment Moderate Urine Bacteria Few H (NEGATIVE) /HPF Urine Mucus Few H (NEGATIVE) /LPF Urine Yeast (Budding) Few 11/04/17 11/04/17 Range/Units 00:29 00:29 WBC (4.0-10.0) x10^3/uL RBC (4.5-6.0) x10^6/uL Hgb (14.0-18.0) g/dL Hct (40.0-52.0) % MCV (78.0-93.0) fL MCH (26.0-32.0) pg MCHC (32.0-36.0) g/dL RDW Coeff of Lety (10.0-15.0) % Plt Count (130-400) x10^3/uL Neut % (Auto) (50.0-80.0) % Lymph % (Auto) (25.0-50.0) % [place] % (Auto) (2.0-11.0) % Eos % (Auto) (0.0-4.0) % Baso % (Auto) (0.2-1.2) % PT 21.2 H (9.6-11.4) SEC INR 2.0 (2.0-3.5) Sodium (136-145) mmol/L Potassium (3.5-5.1) mmol/L Chloride (98-107) mmol/L Carbon Dioxide (21-32) mmol/L Anion Gap (10-20) mmol/L BUN (7-18) mg/dL Creatinine (0.70-1.30) mg/dL Est Cr Clr Drug Dosing Estimated GFR (MDRD) Glucose (74-106) mg/dL Lactic Acid 0.9 (0.4-2.0) mmol/L Calcium (8.5-10.1) mg/dL Corrected Calcium (8.5-10.1) mg/dL Total Bilirubin (0.2-1.0) mg/dL AST (15-37) U/L ALT (16-63) U/L Alkaline Phosphatase (46-116) U/L Creatine Kinase (39-308) U/L Troponin I (<=0.056) ng/mL C-Reactive Protein (<=0.9) mg/dL NT-Pro-B Natriuret Pep (<=450) pg/mL Total Protein (6.4-8.2) g/dL Albumin (3.4-5.0) g/dL Globulin Albumin/Globulin Ratio TSH, Ultra Sensitive (0.358-3.74) uIU/mL Urine Color (YELLOW) Urine Appearance (CLEAR) Urine pH (5.0-8.0) Ur Specific [place] Urine Protein (NEGATIVE) mg/dL Urine Glucose (UA) (NEGATIVE) mg/dL Urine Ketones (NEGATIVE) mg/dL Urine Occult Blood (NEGATIVE) Urine Nitrite (NEGATIVE) Urine Bilirubin (NEGATIVE) Urine Urobilinogen (0.2) EU/dL Ur Leukocyte Esterase (NEGATIVE) Urine RBC (NOT SEEN) /HPF Urine Red Cell Clumps Urine WBC (NOT SEEN) /HPF Urine WBC Clumps Ur Renal Epithelial Cell (NEGATIVE) /HPF Amorphous Sediment Urine Bacteria (NEGATIVE) /HPF Urine Mucus (NEGATIVE) /LPF Urine Yeast (Budding) Meds: Medications Generic Name Dose Route Start Last Admin Trade Name Freq PRN Reason Stop Dose Admin Sodium Chloride 10 ml 11/04/17 00:12 Saline Flush FLUSH ASDIRECTED PRN Keep Vein Open Discontinued Medications Generic Name Dose Route Start Last Admin Trade Name Freq PRN Reason Stop Dose Admin Ceftriaxone Sodium 1 gm 11/04/17 00:27 11/04/17 00:44 Rocephin IVPUSH 11/04/17 00:28 1 gm STAT ONE Administration - Radiology Interpretation Free Text/Narrative:: Chest x-ray negative for acute pneumonia, pleural effusion, hemo/pneumothorax, Head CT negative for ischemia or hemorrhagic stroke, abdominal CT shows some hydronephrosis with 2 stones in left distal ureter, cholecystitis, diverticulosis Departure - Departure Time of Disposition: 03:00 Disposition: Admitted As Inpatient 64 Clinical Impression: UTI, Urinary tract infectious disease - Discharge Information *PRESCRIPTION DRUG MONITORING PROGRAM REVIEWED*: Not Applicable *COPY OF PRESCRIPTION DRUG MONITORING REPORT IN PATIENT ALLY: Not Applicable ED Communication - ED Communication Date/Time Date: 11/04/17 Time Called: 02:45 - Discussed Case With (1) Discussed Case With (1): Admitting Provider (Dr. Platt called and given report. She will admit. I did agree to put in initial order set and she will do admission H and P in the AM. Patient is DNR/DNI) - Problem List & Annotations (1) UTI (urinary tract infection) SNOMED Code(s): 11777905 Code(s): N39.0 - URINARY TRACT INFECTION, SITE NOT SPECIFIED Status: Acute Priority: Medium Current Visit: No Qualifiers: Urinary tract infection type: site unspecified Hematuria presence: with hematuria Qualified Code(s): N39.0 - Urinary tract infection, site not specified; R31.9 - Hematuria, unspecified (2) Hydronephrosis SNOMED Code(s): 96503008 Code(s): N13.30 - UNSPECIFIED HYDRONEPHROSIS Status: Chronic Priority: Low Current Visit: No Qualifiers: Hydronephrosis type: with ureteral calculous obstruction Qualified Code(s) : N13.2 - Hydronephrosis with renal and ureteral calculous obstruction (3) Weakness SNOMED Code(s): 04780394 Code(s): R53.1 - WEAKNESS Status: Acute Priority: Medium Current Visit : No (4) Pyelonephritis, acute SNOMED Code(s): 37990222 Code(s): N10 - ACUTE PYELONEPHRITIS Status: Acute Priority: Medium Current Visit: No - Problem List Review Problem List Initiated/Reviewed/Updated: Yes - My Orders Last 24 Hours: My Active Orders 11/04/17 00:12 Abdomen Pelvis w Cont [CT] Stat Chest 1V Frontal [CR] Stat Head wo Cont [CT] Stat Sodium Chloride 0.9% [Saline Flush] 10 ml FLUSH ASDIRECTED PRN Blood Culture x2 Reflex Set [OM.PC] Stat Saline Lock Insert [OM.PC] Routine 11/04/17 00:15 CULTURE BLOOD [BC] Stat CULTURE BLOOD [BC] Stat 11/04/17 00:16 URINALYSIS W/MICROSCOPIC [UA W/MICROSCOPIC] [URIN] Stat 11/04/17 00:17 EKG 12 Lead [EKG Documentation Completion] [RC] URGENT - Assessment/Plan Last 24 Hours: My Active Orders 11/04/17 00:12 Abdomen Pelvis w Cont [CT] Stat Chest 1V Frontal [CR] Stat Head wo Cont [CT] Stat Sodium Chloride 0.9% [Saline Flush] 10 ml FLUSH ASDIRECTED PRN Blood Culture x2 Reflex Set [OM.PC] Stat Saline Lock Insert [OM.PC] Routine 11/04/17 00:15 CULTURE BLOOD [BC] Stat CULTURE BLOOD [BC] Stat 11/04/17 00:16 URINALYSIS W/MICROSCOPIC [UA W/MICROSCOPIC] [URIN] Stat 11/04/17 00:17 EKG 12 Lead [EKG Documentation Completion] [RC] URGENT Assessment:: urinary tract infection hydronephrosis pyelonephritis weakness Plan: Admit to acute care with Dr. Platt as admitting provider, Dr. Ellsworth to likely cover as attending as she is his primary.
[2017-11-04] MEDS ORDERED: Iopamidol 612 MG/ML 100 ML Bottle IVPUSH ONE (02:12)
[2017-11-04] MEDS ORDERED: Piperacillin/Tazobactam 3.375 GM in Sodium Chloride 0.9% 100 ML IV ONE (02:13)
[2017-11-04] MEDS ORDERED: Sodium Chloride 0.9% 1,000 ML IV SCH (02:15)
[2017-11-04] MEDS ORDERED: Albuterol/Ipratropium 3.0-0.5 MG/3 ML Neb Soln NEB PRN (03:09)
[2017-11-04] MEDS ORDERED: Ondansetron 4 MG Tab.DIS PO PRN (03:09)
[2017-11-04] MEDS ORDERED: Acetaminophen 325 MG Tab PO PRN (03:09)
[2017-11-04] MEDS ORDERED: Bisacodyl 5 MG Tab PO PRN (06:43)
[2017-11-04] MEDS ORDERED: Acetaminophen 500 MG Tab PO PRN (06:43)
[2017-11-04] MEDS ORDERED: Albuterol 0.083% 2.5 MG/3 ML Neb Soln INH PRN (06:43)
[2017-11-04] MEDS ORDERED: Nystatin Crm 30 GM Tube TOP SCH (06:45)
[2017-11-04] MEDS ORDERED: Formoterol/Mometasone 200-5 MCG 8.8 GM Inhaler IH SCH (07:00)
[2017-11-04] MEDS ORDERED: D MANNOSE PO SCH (07:00)
[2017-11-04] MEDS ORDERED: Albuterol/Ipratropium 3.0-0.5 MG/3 ML Neb Soln INH SCH (07:00)
[2017-11-04] MEDS ORDERED: Lactulose Soln 10 GM/15 ML 30 ML UD Cup PO PRN (07:15)
[2017-11-04] MEDS ORDERED: Cranberry 500 MG Cap PO SCH (08:00)
[2017-11-04] MEDS ORDERED: Tiotropium Inhaler 18 MCG Inhalation Powder Cap Kit of 5 INH SCH (08:00)
[2017-11-04] MEDS ORDERED: Diltiazem 180 MG Cap.CD PO SCH (08:00)
[2017-11-04] MEDS ORDERED: Multivitamins with Iron/Calcium/Folic Acid/Minerals Tab PO SCH (08:00)
[2017-11-04] MEDS ORDERED: Magnesium Oxide 400 MG Tab PO SCH (08:00)
[2017-11-04] MEDS ORDERED: Non-Formulary Medication 1 Each (Budesonide/Formoterol [Symbicort 160-4.5 Mcg] 2 PUFF) INH SCH (08:00)
[2017-11-04] MEDS ORDERED: Allopurinol 300 MG Tab PO SCH (08:00)
[2017-11-04] MEDS ORDERED: Furosemide 40 MG Tab PO SCH (08:00)
[2017-11-04] MEDS ORDERED: Piperacillin/Tazobactam 4.5 GM in Sodium Chloride 0.9% 100 ML IV ONE (08:30)
[2017-11-04 09:21] LABS: ANION GAP 14.6 mmol/L (10-20)
[2017-11-04 10:45] VITALS: BP 113/61
[2017-11-04] MEDS ORDERED: Ipratropium 0.02% 0.5 MG/2.5 ML Neb Soln INH SCH (11:00)
[2017-11-04] MEDS ORDERED: Lactobacillus Rhamnosus GG (Probiotic) Cap PO SCH (11:00)
--- NOTE | 2017-11-04 11:10 | PCM.SN ---
- Free Text/Narrative Note: CT report reread and concerns for hydronephrosis with stone blocking. Lactic acid level now high at 3.0. I spoke with one call at 11:[address] Smith, hospitalist at [facility] did accept pt. Pt's daughter Gabriela was contacted at [phone] and does agree to transfer.
--- NOTE | 2017-11-04 11:20 | HP ---
PRIMARY DIAGNOSIS: Weakness with fever. HISTORY OF PRESENT ILLNESS: The patient is an 82-year-old male, who has had frequent bouts of multidrug infections. 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 He had been initially treated at that hospitalization with cefepime and vancomycin and then switched to Zosyn. He had been sent home on Keflex. He chronically does have COPD. He had an echocardiogram done at that time to rule out endocarditis. Transthoracic echocardiogram showed possible vegetations on mitral valve. Ejection fraction was noted to be 60%. The patient states he had been feeling ill for the past 2 days. He does complain a little bit of back pain as well as right hip pain. He is brought in by ambulance and seen in the emergency room by Fabricio Iniguez. The patient then had come back to swing bed and had gone home on , 10/29/2017. The patient said that later in the evening, he complained of generalized weakness, inability to ambulate, and confusion. When seen in the emergency room, his sats were 91% to 92%, temperature was 100.7. He is on home oxygen. He denies a headache or chest pain. Does have some right leg pain and knee pain. The patient has had in the emergency room lab work that showed white blood cell count 12.5, hemoglobin 14.6 with 195 platelets. Sodium 135, potassium 4.0, creatinine 1.6. GFR was 41. INR was 2.0. Total bilirubin was 1.1, AST 12, ALT 27. Troponin less than 0.017. CRP elevated at 15.8. ProBNP 3451. Lactic acid was negative. TSH was 2.85. Urinalysis was dark, turbid, specific gravity 1.015, protein was 100, urobilinogen 0.2, rbc's greater than 100, white blood cells greater than 100, moderate epithelial cells, moderate sediment, few bacteria. Lactic acid was normal at 0.9. Imaging was done. Chest x-ray was negative for acute pneumonia and just showed cardiomegaly. His head CT showed mild periventricular white matter disease. An abdominal CT showed status post cystectomy with urostomy. He had advanced left hydronephrosis with stones present as well as diverticulosis was present. The patient was noted per family to be do not resuscitate, do not intubate. MEDICATIONS: At the time of admit are he is on allopurinol 300 mg 1 pill daily, Spiriva 1 puff daily, magnesium oxide 500 mg 1 pill daily, diltiazem 180 mg extended release 1 pill daily, docusate with senna 1 pill twice a day, Dulcolax 5 mg tablets daily p.r.n., Symbicort 160/4.5 two puffs b.i.d., lactulose 10 g/15 mL takes 30 mL 3 times a day as needed, lactobacillus 1 capsule b.i.d., cranberry extract 500 mg daily, multivitamin 1 pill daily, Mannose 1 g powder 1 tablet b.i.d., furosemide 40 mg 1 pill twice a day, Coumadin 5 mg on Thursday, Thursday, Thursday, , and Thursday, Metoprolol-XL 25 mg 1 pill daily, Tylenol Extra Strength 1000 mg q.6 hours p.r.n., albuterol MDI 1 to 2 puffs q.4 hours p.r.n., DuoNeb 3 mL twice a day, nystatin cream to topical every 3 days, melatonin 3 mg at bedtime, Coumadin 2.5 mg on Mondays and Fridays. ALLERGIES: None known. PAST MEDICAL HISTORY: The patient had bladder cancer with cystectomy with ileal conduit, known hydronephrosis, multiple UTIs, chronic atrial fibrillation on chronic anticoagulation, gout, abdominal aortic aneurysm, history of PE, COPD, tobacco use, lymphadenopathy, kidney stones, gout, cognitive impairment, hypoxic, adjustment disorder, hypercholesterolemia, oxygen dependent, chronic diastolic CHF, code status is do not intubate or perform CPR or defibrillation, [id number] pulmonary hypertension, vertebral compression fracture of spine status post vertebroplasties. PAST SURGICAL HISTORY: Abdominal aortic aneurysm repair, cystectomy, a partial ileal conduit endoluminal aortic stent on 02/08/2015, had eye surgery bilaterally, hernia left inguinal, prostate surgery. FAMILY HISTORY: Father had heart attack. Sister had diabetes. Sister also had prediabetes. SOCIAL HISTORY: He is . 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 He has 5 children. One daughter of a cardiac dysrhythmia. 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 Smoking, he has smoked for many years. Alcohol use, none current. The patient lives in a senior apartment in [place]. He has home health nursing. Family is around. He does use a wheeled walker for ambulation. REVIEW OF SYSTEMS: The patient has been pleasantly forgetful, a bit short of breath. No chest pain. No nausea. Does have right hip pain. Does have some back pain. Mood is forgetful. He generally feels weak. He had been voiding with some blood. PHYSICAL EXAMINATION: General: The patient is seen resting in the bed. The patient appears weak, sleepy. Vital Signs: His initial temperature on admit was 36.2, pulse 90, blood pressure is 112/72, respirations 20, sats are 91%. HEENT: Mucous membranes are moist. Pupils are equal and react to light. Conjunctivae are clear. Neck: No JVD. No thyromegaly. Heart: Irregularly irregular. Lungs: Have diminished breath sounds on bases. No crackles or wheezes. Abdomen: Bowel sounds are present. He has a urostomy bag. Abdomen is soft. Extremities: No CVA tenderness noted on palpation of his back, possibly tenderness of his right hip. Lower extremities are slender, thin. Neurologic: The patient has generalized weak. IMPRESSION: 1. Systemic inflammatory response syndrome. 2. Urinary tract infection. 3. Chronic obstructive pulmonary disease. 4. Chronic atrial fibrillation. 5. Generalized weakness. 6. Mild cognitive dysfunction. 7. History of bladder cancer. PLAN: The patient will be admitted to acute care. He will be placed on IV Zosyn. We will also give some mild hydration. We will recheck lab work for lactic acid. The patient is do not resuscitate, do not intubate. The patient is admitted to Dr. Larisa Ellsworth's service. She has gone. I will follow the patient today in her absence and then we will have the patient be followed by Dr. Diaz Status is somewhat questionable as his condition is worsening, he may need transfer back to [facility] and have Infectious Disease again involved in his care as they had been involved in hospitalization in end of September. He is DNR, DNI status as before. GM11/04/2017 07:05:13 MODL: 11/04/2017 09:59:00 /[id number]
--- NOTE | 2017-11-04 14:07 | DISCH ---
PRIMARY DIAGNOSES: 1. Systemic inflammatory response syndrome. 2. Urinary tract infection. 3. History of complicated chronic urinary tract infection with recent infection of Enterococcus faecalis bacteremia from 10/19/2017. 4. Left hydronephrosis. 5. Left nephrolithiasis. 6. Chronic obstructive pulmonary disease. 7. Chronic atrial fibrillation. 8. History of bladder cancer. 9. Chronic anticoagulants. 10.Abdominal aortic aneurysm. 11.Mild cognitive dysfunction. 12.Chronic diastolic congestive heart failure. SUMMARY AND ADMIT HISTORY AND PHYSICAL: The patient is an 82-year-old male, who presented actually to the emergency room on 11/03/2014, is being worked up for extreme fatigue, weakness, and difficulty walking. Urinalysis came back quite abnormal. At that time, his initial lactic acid was normal. He was given a gram of Rocephin. CT scan had been obtained of his abdomen right away and it did show cystectomy with urostomy, advanced left hydronephrosis with stones of distal ureter, diverticulosis present. SUMMARY OF HOSPITAL COURSE: The patient was felt to require acute care status. He has had recent problems with complicated infection before. He was switched to piperacillin that is with an antibiotic had been usually had been acute care at [facility]. CT report was re-evaluated by radiologist, which did come back with more concerning findings for hydronephrosis on the left with stone blockage present. To note, the patient had repeat blood work done at 9 in the morning, which showed that his white blood cell count had gone from 12.5 on admission to 13.8, hemoglobin had gone from 14.6 to 14.4, platelet count had gone from 195 to 186. His INR was 2.2. He had 69% segs, 22% lymphocytes. Sedimentation rate was 28, normal is 16 or less. His sodium is 135, potassium 3.6, creatinine had gone up to 1.8 from 1.6 on admission. His glucose was up to 203. His lactic acid had gone from 0.9 to 3.1. His calcium was 8.5, total bilirubin was 1.1, AST on admission was 22, ALT was 27, alkaline phosphatase was 62. CK on admission was 72. Troponin on admission was less than 0.017. CRP was elevated to 15.8 on admission. ProBNP was 3451 on admission. Albumin was 3.4. Urinalysis greater than 100 red blood cells per high-powered field and greater than 100 white blood cells per high-powered field with few bacteria. Urine culture is pending. EKG showed atrial fibrillation. To note, a head CT had been done, which showed some chronic microvascular changes. No acute changes. Chest x-ray was done, which just showed some cardiomegaly. Because of concerns with an elevated lactic acid level with no obstructing stone, I did contact Dr. rEik Smith hospitalist at [facility] to transfer the patient. He did accept the patient. I did talk with the patient's daughter, Gabriela, and she did agree to transfer to [place]. To note, the patient is a do not resuscitate, do not intubate for code level status. It is felt that possibly Interventional Radiology me need to place a nephrostomy tube. His medications at transfer are the same as what they were on admit. Other than he was placed on piperacillin. GM11/04/2017 12:09:13 MODL: 11/04/2017 12:49:14 /[id number]
[2017-11-04] MEDS ORDERED: Melatonin 3 MG Tab PO SCH (20:00)
[2017-11-04] MEDS ORDERED: Metoprolol Succinate 25 MG Tab.ER PO SCH (20:00)
[2017-11-04] MEDS ORDERED: Warfarin 5 MG Tab PO SCH (20:00)
[2017-11-06] MEDS ORDERED: Warfarin 2.5 MG Tab PO SCH ×2 (17:00→20:00)
== END 2017-11-04 12:30 | disposition short-term general hospital (02) | DRG 872 ==
LOC: VM.ED 23:55 → VM.MS 11-04 02:57
PROVIDERS: ADMIT Family Medicine; ATTEND Family Medicine
DX: N10 Acute pyelonephritis (principal); A41.9 Sepsis, unspecified organism; N13.30 Unspecified hydronephrosis; N39.0 Urinary tract infection, site not specified; I50.32 Chronic diastolic (congestive) heart failure; I50.9 Heart failure, unspecified; N13.2 Hydronephrosis with renal and ureteral calculous obstruction; H54.7 Unspecified visual loss; H91.90 Unspecified hearing loss, unspecified ear; R65.20 Severe sepsis without septic shock; J44.9 Chronic obstructive pulmonary disease, unspecified; I48.2 Chronic atrial fibrillation; Z66 Do not resuscitate; K59.09 Other constipation; G31.84 Mild cognitive impairment of uncertain or unknown etiology; M10.9 Gout, unspecified; I11.0 Hypertensive heart disease with heart failure; I27.20 Pulmonary hypertension, unspecified; R74.0 Nonspecific elevation of levels of transaminase and lactic acid dehydrogenase [LDH]; K57.90 Diverticulosis of intestine, part unspecified, without perforation or abscess without bleeding; F17.210 Nicotine dependence, cigarettes, uncomplicated; Z87.440 Personal history of urinary (tract) infections; Z99.81 Dependence on supplemental oxygen; Z79.01 Long term (current) use of anticoagulants; Z85.51 Personal history of malignant neoplasm of bladder; Z86.79 Personal history of other diseases of the circulatory system; Z79.899 Other long term (current) drug therapy; Z93.6 Other artificial openings of urinary tract status
CPT/HCPCS: 36415; 70450; 71045; 74177; 80053; 81001; 82550; 83605; 83880; 84443; 84484; 85025; 85610; 86140; 87040 ×2; 87086; 93005; 96365; 96375; 99285; J0696; J1940; J2543; J7030; J7050; 73560-RT; 80048; 84550; 85652; 87077; 87088; 87186; 94640; 94760; A9270-GY; J7620-GY; Q9967

== ENCOUNTER 2017-11-13 11:40 | Inpatient (IN) | payer MEDICARE, BC ==
--- NOTE | 2017-11-13 11:51 | PCM.HP ---
H&P History of Present Illness - General Date of Service: 11/13/17 Admit Problem/Dx: Admission Diagnosis/Problem Admission Diagnosis/Problem Urosepsis Source of Information: Patient History Limitations: Reports: No Limitations - History of Present Illness Initial Comments - Free Text/Narative: Mr. Aragon is an 82 yo male who is admitted to swing bed for IV antibiotics and PT after an acute hospitalization at [facility]. He initially presented to the [facility] ER for evaluation of generalized weakness and confusion. He was admitted for presumed UTI as well as acute on chronic kidney injury and started on IV antibiotics and fluids. His lactate then increased despite this intervention and he was found on CT to have a left ureteral stone causing left hydronephrosis. Therefore, he was transferred to [facility] for further evaluation and management. He underwent left nephrostomy tube placement in IR on 11/04 upon recommendations from urology. His blood cultures also returned positive for enterococcus (after he had just completed a 2 week course of IV antibiotics for the same on 10/29/17). Urine cultures have consistently shown pseudomonas. Thus, he underwent repeat TTE and LUCRECIA (had been negative during previous hospitalization) and was diagnosed with ewiiaapaayp mitral valve endocarditis. The infectious disease team followed him during his hospitalization and recommended ampicillin and ceftriaxone for a total of a 6 week course (end date 12/15/17). The hospitalization was otherwise complicated by episodes of delirium that subsequently resolved. PT did evaluate him and recommended ongoing therapies upon dismissal prior to his return home. Upon arrival to the floor, Mr. Aragon is not entirely clear on the events of his hospitalization. He does know where he is and knows the names of all staff members including myself. He denies any complaints at this time. He denies any pain, chest pain, shortness of breath, fever, or chills. He is feeling quite weak and fatigued, which he attributes to everything that has happened over the past week. - Related Data Allergies/Adverse Reactions: Allergies Allergy/AdvReac Type Severity Reaction Status Date / Time No Known Allergies Allergy Verified 11/13/17 12:00 Home Medications: Home Meds Allopurinol [Zyloprim] 300 mg PO DAILY 09/10/14 [History] Tiotropium [Spiriva HandiHaler] 1 puff PO DAILY@0700 10/04/15 [History] Diltiazem HCl [Cartia Xt] 180 mg PO DAILY 07/04/16 [History] Bisacodyl [Dulcolax] 5 mg PO DAILY PRN 07/07/16 [History] Docusate Sodium/Sennosides [Senna Plus] 1 tab PO BID@0700,1700 07/07/16 [History ] Budesonide/Formoterol [Symbicort 160-4.5 MCG] 2 puff INH BID 09/09/16 [History] Cranberry Extract [Cranberry] 500 mg PO DAILY 09/09/16 [History] Lactobacillus Combination No.4 [Probiotic] 1 cap PO BID@,09/09/16 [History] Lactulose [Generlac] 30 ml PO TID PRN 09/09/16 [History] Multivitamin [Multi-Vitamin Daily] 1 tab PO DAILY 09/09/16 [History] D-Mannose 1 tab PO BID@0700,1700 04/26/17 [History] Furosemide [Lasix] 40 mg PO BID@0700,199904/27/17 [History] Metoprolol Succinate [Toprol XL] 25 mg PO DAILY@199904/27/17 [History] Warfarin [Coumadin] 5 mg PO SUTUWETHSA@169904/27/17 [History] Acetaminophen [Tylenol Extra Strength] 1,000 mg PO Q4H PRN 09/19/17 [History] Albuterol [Proventil HFA] 1 - 2 puff INH Q4H PRN 10/11/17 [History] Albuterol/Ipratropium [DuoNeb 3.0-0.5 MG/3 ML] 3 ml NEB BID 10/11/17 [History] Nystatin [Nystatin Crm] 1 applicful TOP Q3D 10/11/17 [History] Warfarin [Coumadin] 2.5 mg PO MOFR@17011/04/17 [History] Ampicillin 2 gm IV Q4H 11/13/17 [History] Codeine/Promethazine [Phenergan with Codeine] 5 ml PO QID PRN 11/13/17 [History] Heparin Sodium,Porcine/PF [Heparin 300 Unit/3 ml (100/ml)] 300 unit IV ASDIRECTED 11/13/17 [History] Magnesium Oxide 400 mg PO DAILY 11/13/17 [History] Sodium Chloride 0.9% [Saline Flush] 10 ml FLUSH ASDIRECTED 11/13/17 [History] cefTRIAXone [Rocephin] 2 gm IVPUSH Q12H 11/13/17 [History] Past Medical History HEENT History: Reports: Hard of Hearing, Impaired Vision Cardiovascular History: Reports: Afib, Aneurysm, Heart Failure, High Cholesterol , Hypertension, Pulmonary Hypertension, Other (See Below) Other Cardiovascular History: AAA Respiratory History: Reports: COPD, PE, SOB Other Respiratory History: hypoxia, oxygen dependent Gastrointestinal History: Reports: Chronic Constipation Genitourinary History: Reports: Hydronephrosis, Renal Calculus, UTI, Recurrent Other Genitourinary History: kidney stones Musculoskeletal History: Reports: Gout, Other (See Below) Other Musculoskeletal History: collapsed vertebra, compression fracture of spine Neurological History: Reports: Other (See Below) Other Neuro History: mild cognitive impairment Psychiatric History: Reports: Other (See Below) Other Psychiatric History: adjustment disorder Endocrine/Metabolic History: Reports: None Hematologic History: Reports: Other (See Below) Other Hematologic History: coumadin therapy Immunologic History: Reports: None Oncologic (Cancer) History: Reports: Bladder Dermatologic History: Reports: Other (See Below) Other Dermatologic History: lymphadenopathy - Infectious Disease History Infectious Disease History: Reports: None - Past Surgical History HEENT Surgical History: Reports: Cataract Surgery Other HEENT Surgeries/Procedures: Unspecific Eye surgery Cardiovascular Surgical History: Reports: AAA Repair Other Cardiovascular Surgeries/Procedures: endoluminal aortic stent Respiratory Surgical History: Reports: None GI Surgical History: Reports: Hernia, Inguinal Other GI Surgeries/Procedures: Endoluminal Aortic Stent Male Surgical History: Reports: Cystectomy, TURP-Transurethral Resection of Prostate Other Male Surgeries/Procedures: UROSTOMY Dermatological Surgical History: Reports: None Social & Family History - Family History Cardiac: Reports: CAD Respiratory: Reports: None GI: Reports: None : Reports: None OBGYN: Reports: None Musculoskeletal: Reports: Arthritis Neurological: Reports: None Psychiatric: Reports: None Endocrine/Metabolic: Reports: Diabetes, type II Hematologic: Reports: None Immunologic: Reports: None Oncologic: Reports: Bladder, Breast, Colon, Skin - Tobacco Use Smoking Status *Q: Former Smoker - Caffeine Use Caffeine Use: Reports: None - Alcohol Use Alcohol Use in Last Twelve Months: No - Recreational Drug Use Recreational Drug Use: No - Living Situation & Occupation Living situation: Reports: , Alone Occupation: Retired H&P Review of Systems - Review of Systems: Review Of Systems: See Below General: Reports: No Symptoms HEENT: Reports: No Symptoms Pulmonary: Reports: No Symptoms Cardiovascular: Reports: No Symptoms Gastrointestinal: Reports: No Symptoms Genitourinary: Reports: No Symptoms Musculoskeletal: Reports: No Symptoms Skin: Reports: No Symptoms Psychiatric: Reports: No Symptoms Neurological: Reports: No Symptoms Exam - Exam Exam: See Below - Exam General: Alert, Oriented, Cooperative HEENT: Conjunctiva Clear, Mucosa Moist & [place], Posterior Pharynx Clear Neck: Supple, Trachea Midline. No: Lymphadenopathy, Thyromegaly Lungs: Clear to Auscultation, Normal Respiratory Effort Cardiovascular: Regular Rate, Normal S1, Normal S2, Irregular Rhythm, Systolic Murmur GI/Abdominal Exam: Normal Bowel Sounds, Soft, Non-Tender, No Organomegaly, No Distention, No Mass Extremities: Non-Tender, No Pedal Edema, Normal Capillary Refill Peripheral Pulses: 2+: Radial (L), Radial (R) Skin: Warm, Dry, Intact - Problem List (1) Endocarditis of ewiiaapaayp valve SNOMED Code(s): 01809620 ICD Code: I38 - ENDOCARDITIS, VALVE UNSPECIFIED Status: Acute Current Visit: No (2) Gram-positive bacteremia SNOMED Code(s): 416176111259 ICD Code: R78.81 - BACTEREMIA Status: Acute Current Visit: No (3) Renal calculus, left SNOMED Code(s): 60705674 ICD Code: N20.0 - CALCULUS OF KIDNEY Status: Acute Current Visit: No (4) Hydronephrosis SNOMED Code(s): 46409672 ICD Code: N13.30 - UNSPECIFIED HYDRONEPHROSIS Status: Acute Priority: Low Current Visit: No Qualifiers: Hydronephrosis type: with ureteral calculous obstruction Qualified Code(s) : N13.2 - Hydronephrosis with renal and ureteral calculous obstruction (5) Recurrent UTI SNOMED Code(s): 016161367 ICD Code: N39.0 - URINARY TRACT INFECTION, SITE NOT SPECIFIED Status: Chronic Current Visit: No (6) Chronic kidney disease SNOMED Code(s): 496685720 ICD Code: N18.9 - CHRONIC KIDNEY DISEASE, UNSPECIFIED Status: Chronic Current Visit: No Qualifiers: Chronic kidney disease stage: stage 3 (moderate) Qualified Code(s): N18.3 - Chronic kidney disease, stage 3 (moderate) (7) Weakness SNOMED Code(s): 20075415 ICD Code: R53.1 - WEAKNESS Status: Acute Priority: Medium Current Visit : No (8) COPD, severe SNOMED Code(s): 284916073 ICD Code: J44.9 - CHRONIC OBSTRUCTIVE PULMONARY DISEASE, UNSPECIFIED Status : Chronic Current Visit: No (9) Diastolic heart failure SNOMED Code(s): 956946363 ICD Code: I50.30 - UNSPECIFIED DIASTOLIC (CONGESTIVE) HEART FAILURE Status : Chronic Current Visit: No Qualifiers: Heart failure chronicity: chronic Qualified Code(s): I50.32 - Chronic diastolic (congestive) heart failure (10) Chronic respiratory failure with hypoxia SNOMED Code(s): 280665529 ICD Code: J96.11 - CHRONIC RESPIRATORY FAILURE WITH HYPOXIA Status: Chronic Current Visit: No (11) Mitral regurgitation SNOMED Code(s): 29514282 ICD Code: I34.0 - NONRHEUMATIC MITRAL (VALVE) INSUFFICIENCY Status: Chronic Current Visit: No Qualifiers: Cardiac valve disease etiology: nonrheumatic Qualified Code(s): I34.0 - Nonrheumatic mitral (valve) insufficiency (12) Chronic atrial fibrillation SNOMED Code(s): 793734294 ICD Code: I48.2 - CHRONIC ATRIAL FIBRILLATION Status: Chronic Current Visit: No (13) History of pulmonary embolus (PE) SNOMED Code(s): 886592942 ICD Code: Z86.711 - PERSONAL HISTORY OF PULMONARY EMBOLISM Status: Chronic Current Visit: No Problem Details: PE 2004 (14) Chronic anticoagulation SNOMED Code(s): 047847528 ICD Code: Z79.01 - PENITENTIARY (CURRENT) USE OF ANTICOAGULANTS Status: Chronic Current Visit: No (15) Constipation SNOMED Code(s): 43195365 ICD Code: K59.00 - CONSTIPATION, UNSPECIFIED Status: Chronic Current Visit: No Qualifiers: Constipation type: unspecified constipation type Qualified Code(s): K59.00 - Constipation, unspecified Problem List Initiated/Reviewed/Updated: Yes Orders Last 24hrs: Active Orders 24 hr Category Date Time Status Admission Status [Patient Status] [ADT] Routine ADT 11/13/17 11:34 Active Assessment/Plan Comment:: 82 yo male admitted for IV antibiotics and therapy after acute hospitalization at [facility] for endocarditis and nephrolithiasis with hydronephrosis. #1 Endocarditis of ewiiaapaayp valve #2 Gram positive bacteremia - Patient will be on ceftriaxone and ampicillin through 12/15. - Monitoring labs (CBC, ALT, and creatinine) weekly. - No ID follow-up currently scheduled but he will need to follow-up with them outpatient as well. #3 Renal calculus, left #4 Hydronephrosis, secondary to #3 - S/P nephrostomy tube placement. - Urology follow-up is scheduled 11/30/17. 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 - As above, he will need ongoing follow-up with ID in the future. #6 Chronic Kidney Disease - Creatinine normalized while hospitalized in [place]. - Will be monitored weekly while on antibiotics. - Will avoid any additional renal stress. #7 Generalized Weakness - Secondary to illnesses and hospitalizations. - PT/OT consults. #8 COPD, severe #9 Diastolic Heart Failure #10 Chronic hypoxic respiratory failure - No acute symptoms. - Continue home medications and oxygen per home dosing. #11 Severe Mitral Regurgitation - Outpatient cardiology follow-up has been scheduled for 01/14. #12 Chronic Atrial Fibrillation #13 History of PE #14 Chronic Anticoagulation - No acute symptoms. - Continue home medications. - INR to be 1 mg daily through the weekend per orders from [place]. - INR recheck on Thursday. #15 Constipation - Continue home medications. Patient is admitted to swing bed for IV antibiotics and PT. Will be admitted at least through 12/15 and after that depends on therapy course. No VTE prophylaxis indicated as patient is therapeutically anticoagulated with warfarin. Code status is DNR/DNI - discussed with patient on admission and consistent with multiple prior hospitalizations and outpatient discussions.
[2017-11-13] MEDS ORDERED: AMPICILLIN 2 GM IV SCH (13:30)
[2017-11-13] MEDS: Ampicillin 2 GM in Sodium Chloride 0.9% 100 ML IV SCH ×3 (13:48→20:30)
[2017-11-13] MEDS ORDERED: Bisacodyl 5 MG Tab PO PRN (13:50)
[2017-11-13] MEDS ORDERED: Sodium Chloride 0.9% 10 ML Syringe FLUSH SCH (14:00)
[2017-11-13] MEDS ORDERED: Heparin Sodium 100 Units/ML 3 ML Syringe FLUSH SCH (14:00)
[2017-11-13] MEDS ORDERED: Lactulose Soln 10 GM/15 ML 30 ML UD Cup PO PRN (14:30)
[2017-11-13] MEDS: Heparin Sodium 100 Units/ML 3 ML Syringe FLUSH SCH ×2 (17:42→21:36)
[2017-11-13] MEDS: Lactobacillus Rhamnosus GG (Probiotic) Cap PO SCH ×2 (17:43→18:03)
[2017-11-13] MEDS: Sodium Chloride 0.9% 10 ML Syringe FLUSH SCH ×2 (17:43→21:35)
[2017-11-13] MEDS: Formoterol/Mometasone 200-5 MCG 8.8 GM Inhaler IH SCH (20:17)
[2017-11-13] MEDS: Albuterol/Ipratropium 3.0-0.5 MG/3 ML Neb Soln NEB SCH (20:19)
[2017-11-13] MEDS: Furosemide 40 MG Tab PO SCH (20:20)
[2017-11-13] MEDS: Metoprolol Succinate 25 MG Tab.ER PO SCH (20:20)
[2017-11-13] MEDS: cefTRIAXone 2 GM Vial IVPUSH SCH (20:22)
[2017-11-14] MEDS: Ampicillin 2 GM in Sodium Chloride 0.9% 100 ML IV SCH ×6 (01:20→20:43)
[2017-11-14] MEDS: Sodium Chloride 0.9% 10 ML Syringe FLUSH SCH ×6 (02:00→21:19)
[2017-11-14] MEDS: Heparin Sodium 100 Units/ML 3 ML Syringe FLUSH SCH ×6 (02:00→21:22)
[2017-11-14] MEDS: Furosemide 40 MG Tab PO SCH ×2 (06:19→20:31)
[2017-11-14] MEDS: Albuterol/Ipratropium 3.0-0.5 MG/3 ML Neb Soln NEB SCH ×2 (07:08→20:30)
[2017-11-14] MEDS: Tiotropium Inhaler 18 MCG Inhalation Powder Cap Kit of 5 INH SCH (07:23)
[2017-11-14] MEDS: Diltiazem 180 MG Cap.CD PO SCH (09:06)
[2017-11-14] MEDS: Magnesium Oxide 400 MG Tab PO SCH (09:06)
[2017-11-14] MEDS: Allopurinol 300 MG Tab PO SCH (09:06)
[2017-11-14] MEDS: cefTRIAXone 2 GM Vial IVPUSH SCH ×2 (09:07→20:25)
[2017-11-14] MEDS: Formoterol/Mometasone 200-5 MCG 8.8 GM Inhaler IH SCH ×2 (09:08→20:32)
[2017-11-14] MEDS: Lactobacillus Rhamnosus GG (Probiotic) Cap PO SCH ×2 (10:05→17:59)
[2017-11-14] MEDS: Metoprolol Succinate 25 MG Tab.ER PO SCH (20:30)
[2017-11-15] MEDS: Ampicillin 2 GM in Sodium Chloride 0.9% 100 ML IV SCH ×6 (02:22→20:30)
[2017-11-15] MEDS: Sodium Chloride 0.9% 10 ML Syringe FLUSH SCH ×6 (02:26→21:13)
[2017-11-15] MEDS: Heparin Sodium 100 Units/ML 3 ML Syringe FLUSH SCH ×6 (02:27→21:13)
[2017-11-15] MEDS: Acetaminophen 500 MG Tab PO PRN ×2 (02:38→20:16)
[2017-11-15] MEDS: Furosemide 40 MG Tab PO SCH ×2 (06:10→20:18)
[2017-11-15] MEDS: Tiotropium Inhaler 18 MCG Inhalation Powder Cap Kit of 5 INH SCH (06:10)
[2017-11-15] MEDS: Albuterol/Ipratropium 3.0-0.5 MG/3 ML Neb Soln NEB SCH ×2 (07:08→20:19)
[2017-11-15] MEDS: Magnesium Oxide 400 MG Tab PO SCH (08:04)
[2017-11-15] MEDS: Diltiazem 180 MG Cap.CD PO SCH (08:04)
[2017-11-15] MEDS: Formoterol/Mometasone 200-5 MCG 8.8 GM Inhaler IH SCH ×2 (08:04→20:28)
[2017-11-15] MEDS: Allopurinol 300 MG Tab PO SCH (08:04)
[2017-11-15] MEDS: cefTRIAXone 2 GM Vial IVPUSH SCH ×2 (09:03→20:20)
[2017-11-15] MEDS: Lactobacillus Rhamnosus GG (Probiotic) Cap PO SCH ×2 (12:28→17:34)
[2017-11-15] MEDS: Metoprolol Succinate 25 MG Tab.ER PO SCH (20:19)
[2017-11-16] MEDS: Ampicillin 2 GM in Sodium Chloride 0.9% 100 ML IV SCH ×6 (01:01→20:33)
[2017-11-16] MEDS: Sodium Chloride 0.9% 10 ML Syringe FLUSH SCH ×6 (01:42→21:21)
[2017-11-16] MEDS: Heparin Sodium 100 Units/ML 3 ML Syringe FLUSH SCH ×6 (01:43→21:21)
[2017-11-16] MEDS: Acetaminophen 500 MG Tab PO PRN ×2 (06:38→17:38)
[2017-11-16] MEDS: Furosemide 40 MG Tab PO SCH ×2 (06:39→20:30)
[2017-11-16] MEDS: Tiotropium Inhaler 18 MCG Inhalation Powder Cap Kit of 5 INH SCH (06:39)
[2017-11-16] MEDS: Sodium Chloride 0.9% 10 ML Syringe IV PRN (06:56)
[2017-11-16] MEDS: Heparin Sodium 100 Units/ML 3 ML Syringe IVPUSH PRN (06:56)
[2017-11-16] MEDS: Albuterol/Ipratropium 3.0-0.5 MG/3 ML Neb Soln NEB SCH ×2 (07:27→20:30)
[2017-11-16] MEDS: Lactobacillus Rhamnosus GG (Probiotic) Cap PO SCH ×2 (08:46→17:38)
[2017-11-16] MEDS: Allopurinol 300 MG Tab PO SCH (08:47)
[2017-11-16] MEDS: Magnesium Oxide 400 MG Tab PO SCH (08:47)
[2017-11-16] MEDS: Formoterol/Mometasone 200-5 MCG 8.8 GM Inhaler IH SCH ×2 (08:47→20:29)
[2017-11-16] MEDS: Diltiazem 180 MG Cap.CD PO SCH (08:47)
[2017-11-16] MEDS: cefTRIAXone 2 GM Vial IVPUSH SCH ×2 (09:10→20:33)
--- NOTE | 2017-11-16 12:02 | PCM.SN ---
- Free Text/Narrative Note: S: Patient had an uneventful weekend. Still feeling very weak and fatigued but not any worse than last week. Has an increase in usual cough but this is non- productive. No increase in usual shortness of breath and no chest pain, fever, or chills. No abdominal pain, vomiting, or diarrhea. Nephrostomy tube output clearing up slightly. O: Vitals reviewed. Resting in bed in no acute distress. MMM. Heart irregularly irregular with normal S1 and S2; murmur unchanged from previous. No edema. Lungs CTAB. Abdomen soft, nontender, nondistended. Skin warm, dry. A/P: #1 Leukocytosis - WBC up from last check. - Clinically unchanged from last week. - Labs to be sent to ID for review. - No changes at this time. - Will monitor closely for change in symptoms or vital signs. #2 Cough - Lungs are clear today. - Advised IS to help with any atelectasis. #3 Chronic Anticoagulation - INR subtherapeutic at 1.7 today. - Will increase warfarin back to previous dosing of 2.5 mg on Thursday and Thursday , 5 mg all other days. - Recheck INR in 3 days. Larisa Ellsworth MD
[2017-11-16] MEDS: Warfarin 2.5 MG Tab PO SCH (17:38)
[2017-11-16] MEDS: Metoprolol Succinate 25 MG Tab.ER PO SCH (20:30)
[2017-11-17] MEDS: Ampicillin 2 GM in Sodium Chloride 0.9% 100 ML IV SCH ×6 (01:45→21:21)
[2017-11-17] MEDS: Heparin Sodium 100 Units/ML 3 ML Syringe FLUSH SCH ×6 (02:25→22:02)
[2017-11-17] MEDS: Sodium Chloride 0.9% 10 ML Syringe FLUSH SCH ×6 (02:25→21:04)
[2017-11-17] MEDS: Furosemide 40 MG Tab PO SCH ×3 (05:49→21:26)
[2017-11-17] MEDS: Tiotropium Inhaler 18 MCG Inhalation Powder Cap Kit of 5 INH SCH (06:28)
[2017-11-17] MEDS: Albuterol/Ipratropium 3.0-0.5 MG/3 ML Neb Soln NEB SCH ×2 (07:27→21:13)
[2017-11-17] MEDS: Diltiazem 180 MG Cap.CD PO SCH (08:18)
[2017-11-17] MEDS: Lactobacillus Rhamnosus GG (Probiotic) Cap PO SCH ×2 (08:18→17:26)
[2017-11-17] MEDS: Formoterol/Mometasone 200-5 MCG 8.8 GM Inhaler IH SCH ×2 (08:18→21:26)
[2017-11-17] MEDS: Magnesium Oxide 400 MG Tab PO SCH (08:18)
[2017-11-17] MEDS: Allopurinol 300 MG Tab PO SCH (08:18)
[2017-11-17] MEDS: cefTRIAXone 2 GM Vial IVPUSH SCH ×2 (08:57→21:03)
[2017-11-17] MEDS: Sodium Chloride 0.9% 10 ML Syringe IV PRN ×5 (08:59→22:02)
[2017-11-17] MEDS: Heparin Sodium 100 Units/ML 3 ML Syringe IVPUSH PRN ×3 (14:47→17:58)
[2017-11-17] MEDS: Warfarin 5 MG Tab PO SCH (17:26)
[2017-11-17] MEDS: Codeine/Promethazine 10-6.25 MG/5 ML Syrup 5 ML UD Cup PO PRN (21:18)
[2017-11-17] MEDS: Metoprolol Succinate 25 MG Tab.ER PO SCH (21:27)
[2017-11-18] MEDS: Sodium Chloride 0.9% 10 ML Syringe FLUSH SCH ×6 (01:35→22:01)
[2017-11-18] MEDS: Ampicillin 2 GM in Sodium Chloride 0.9% 100 ML IV SCH ×6 (01:39→20:45)
[2017-11-18] MEDS: Sodium Chloride 0.9% 10 ML Syringe IV PRN ×2 (02:19→05:58)
[2017-11-18] MEDS: Heparin Sodium 100 Units/ML 3 ML Syringe FLUSH SCH ×6 (02:19→22:01)
[2017-11-18] MEDS: Furosemide 40 MG Tab PO SCH ×2 (06:34→19:46)
[2017-11-18] MEDS: Albuterol/Ipratropium 3.0-0.5 MG/3 ML Neb Soln NEB SCH ×2 (06:53→19:46)
[2017-11-18] MEDS: Diltiazem 180 MG Cap.CD PO SCH (08:37)
[2017-11-18] MEDS: Magnesium Oxide 400 MG Tab PO SCH (08:37)
[2017-11-18] MEDS: Lactobacillus Rhamnosus GG (Probiotic) Cap PO SCH ×2 (08:37→17:07)
[2017-11-18] MEDS: Formoterol/Mometasone 200-5 MCG 8.8 GM Inhaler IH SCH ×2 (08:38→19:46)
[2017-11-18] MEDS: Allopurinol 300 MG Tab PO SCH (08:38)
[2017-11-18] MEDS: Tiotropium Inhaler 18 MCG Inhalation Powder Cap Kit of 5 INH SCH (09:39)
[2017-11-18] MEDS: cefTRIAXone 2 GM Vial IVPUSH SCH ×2 (09:39→20:45)
[2017-11-18] MEDS: Warfarin 5 MG Tab PO SCH (17:07)
[2017-11-18] MEDS: Codeine/Promethazine 10-6.25 MG/5 ML Syrup 5 ML UD Cup PO PRN (17:49)
[2017-11-18] MEDS: Metoprolol Succinate 25 MG Tab.ER PO SCH (19:46)
[2017-11-19] MEDS: Ampicillin 2 GM in Sodium Chloride 0.9% 100 ML IV SCH ×6 (01:30→20:55)
[2017-11-19] MEDS: Sodium Chloride 0.9% 10 ML Syringe FLUSH SCH ×6 (02:11→21:41)
[2017-11-19] MEDS: Heparin Sodium 100 Units/ML 3 ML Syringe FLUSH SCH ×6 (02:11→21:01)
[2017-11-19] MEDS: Furosemide 40 MG Tab PO SCH ×2 (06:08→19:54)
[2017-11-19] MEDS: Albuterol/Ipratropium 3.0-0.5 MG/3 ML Neb Soln NEB SCH ×2 (07:02→19:54)
[2017-11-19] MEDS: Heparin Sodium 100 Units/ML 3 ML Syringe IVPUSH PRN (07:41)
[2017-11-19] MEDS: Magnesium Oxide 400 MG Tab PO SCH (07:41)
[2017-11-19] MEDS: Lactobacillus Rhamnosus GG (Probiotic) Cap PO SCH ×2 (07:41→17:59)
[2017-11-19] MEDS: Allopurinol 300 MG Tab PO SCH (07:41)
[2017-11-19] MEDS: Codeine/Promethazine 10-6.25 MG/5 ML Syrup 5 ML UD Cup PO PRN ×2 (07:41→19:54)
[2017-11-19] MEDS: Formoterol/Mometasone 200-5 MCG 8.8 GM Inhaler IH SCH ×2 (07:41→19:55)
[2017-11-19] MEDS: Diltiazem 180 MG Cap.CD PO SCH (07:41)
[2017-11-19] MEDS: Sodium Chloride 0.9% 10 ML Syringe IV PRN ×3 (07:43→20:55)
[2017-11-19] MEDS: Tiotropium Inhaler 18 MCG Inhalation Powder Cap Kit of 5 INH SCH (08:56)
[2017-11-19] MEDS: cefTRIAXone 2 GM Vial IVPUSH SCH ×2 (08:56→20:53)
[2017-11-19] MEDS: Warfarin 5 MG Tab PO SCH (17:59)
[2017-11-19] MEDS: Metoprolol Succinate 25 MG Tab.ER PO SCH (19:54)
[2017-11-20] MEDS: Ampicillin 2 GM in Sodium Chloride 0.9% 100 ML IV SCH ×6 (01:22→21:00)
[2017-11-20] MEDS: Heparin Sodium 100 Units/ML 3 ML Syringe FLUSH SCH ×6 (02:04→21:38)
[2017-11-20] MEDS: Sodium Chloride 0.9% 10 ML Syringe FLUSH SCH ×6 (02:04→21:38)
[2017-11-20] MEDS: Furosemide 40 MG Tab PO SCH ×2 (06:35→20:10)
[2017-11-20] MEDS: Tiotropium Inhaler 18 MCG Inhalation Powder Cap Kit of 5 INH SCH (06:36)
[2017-11-20] MEDS: Albuterol/Ipratropium 3.0-0.5 MG/3 ML Neb Soln NEB SCH ×2 (07:06→20:11)
--- NOTE | 2017-11-20 08:23 | PCM.SN ---
- Free Text/Narrative Note: Late entry. INR reviewed yesterday. Note this is barely subtherapeutic. Since his dose was only returned to home dosing 3 days prior starting with a dose of 2.5 mg and warfarin will be held starting next week for a procedure the following week, will leave dosing as is and recheck with other labs on Thursday. Discussed plan with pharmacy who felt this was reasonable.
[2017-11-20] MEDS: Diltiazem 180 MG Cap.CD PO SCH (08:51)
[2017-11-20] MEDS: Lactobacillus Rhamnosus GG (Probiotic) Cap PO SCH ×2 (08:51→17:18)
[2017-11-20] MEDS: Allopurinol 300 MG Tab PO SCH (08:52)
[2017-11-20] MEDS: Magnesium Oxide 400 MG Tab PO SCH (08:52)
[2017-11-20] MEDS: Formoterol/Mometasone 200-5 MCG 8.8 GM Inhaler IH SCH ×2 (08:53→20:11)
[2017-11-20] MEDS: cefTRIAXone 2 GM Vial IVPUSH SCH ×2 (08:54→20:17)
[2017-11-20] MEDS: Warfarin 2.5 MG Tab PO SCH (17:18)
[2017-11-20] MEDS: Metoprolol Succinate 25 MG Tab.ER PO SCH (20:10)
[2017-11-21] MEDS: Sodium Chloride 0.9% 10 ML Syringe FLUSH SCH ×6 (01:33→22:13)
[2017-11-21] MEDS: Ampicillin 2 GM in Sodium Chloride 0.9% 100 ML IV SCH ×6 (01:33→21:02)
[2017-11-21] MEDS: Heparin Sodium 100 Units/ML 3 ML Syringe FLUSH SCH ×6 (02:20→22:13)
[2017-11-21] MEDS: Sodium Chloride 0.9% 10 ML Syringe IV PRN ×6 (02:20→20:55)
[2017-11-21] MEDS: Furosemide 40 MG Tab PO SCH ×2 (06:07→20:26)
[2017-11-21] MEDS: Tiotropium Inhaler 18 MCG Inhalation Powder Cap Kit of 5 INH SCH (06:08)
[2017-11-21] MEDS: Albuterol/Ipratropium 3.0-0.5 MG/3 ML Neb Soln NEB SCH ×2 (07:03→20:28)
[2017-11-21] MEDS: Diltiazem 180 MG Cap.CD PO SCH (07:50)
[2017-11-21] MEDS: Allopurinol 300 MG Tab PO SCH (07:50)
[2017-11-21] MEDS: Formoterol/Mometasone 200-5 MCG 8.8 GM Inhaler IH SCH ×2 (07:51→20:53)
[2017-11-21] MEDS: Lactobacillus Rhamnosus GG (Probiotic) Cap PO SCH ×2 (07:51→16:17)
[2017-11-21] MEDS: Magnesium Oxide 400 MG Tab PO SCH (07:51)
[2017-11-21] MEDS: cefTRIAXone 2 GM Vial IVPUSH SCH ×2 (09:01→20:54)
--- NOTE | 2017-11-21 14:47 | PCM.SN ---
- Free Text/Narrative Note: nursing was having some problems with PICC line flow, so they had wanted an xray to see where placement was. By Xtray PICC line at edge of chest, but seems to flow better now. Official XRAY report is pending.
[2017-11-21] MEDS: Warfarin 5 MG Tab PO SCH (16:17)
[2017-11-21] MEDS: Metoprolol Succinate 25 MG Tab.ER PO SCH (20:26)
[2017-11-22] MEDS: Sodium Chloride 0.9% 10 ML Syringe IV PRN ×8 (00:58→21:14)
[2017-11-22] MEDS: Ampicillin 2 GM in Sodium Chloride 0.9% 100 ML IV SCH ×6 (00:58→21:21)
[2017-11-22] MEDS: Sodium Chloride 0.9% 10 ML Syringe FLUSH SCH ×6 (01:39→22:01)
[2017-11-22] MEDS: Heparin Sodium 100 Units/ML 3 ML Syringe FLUSH SCH ×6 (01:40→22:02)
[2017-11-22] MEDS: Furosemide 40 MG Tab PO SCH ×2 (06:21→21:00)
[2017-11-22] MEDS: Tiotropium Inhaler 18 MCG Inhalation Powder Cap Kit of 5 INH SCH (06:22)
[2017-11-22] MEDS: Albuterol/Ipratropium 3.0-0.5 MG/3 ML Neb Soln NEB SCH ×2 (07:07→21:00)
[2017-11-22] MEDS: cefTRIAXone 2 GM Vial IVPUSH SCH ×2 (08:55→21:10)
[2017-11-22] MEDS: Formoterol/Mometasone 200-5 MCG 8.8 GM Inhaler IH SCH ×2 (09:02→21:00)
[2017-11-22] MEDS: Magnesium Oxide 400 MG Tab PO SCH (09:03)
[2017-11-22] MEDS: Allopurinol 300 MG Tab PO SCH (09:03)
[2017-11-22] MEDS: Lactobacillus Rhamnosus GG (Probiotic) Cap PO SCH ×2 (09:03→16:41)
[2017-11-22] MEDS: Diltiazem 180 MG Cap.CD PO SCH (09:03)
[2017-11-22] MEDS: Warfarin 5 MG Tab PO SCH (16:41)
[2017-11-22] MEDS: Metoprolol Succinate 25 MG Tab.ER PO SCH (21:00)
[2017-11-23] MEDS: Sodium Chloride 0.9% 10 ML Syringe IV PRN ×8 (01:22→21:00)
[2017-11-23] MEDS: Ampicillin 2 GM in Sodium Chloride 0.9% 100 ML IV SCH ×6 (01:22→21:08)
[2017-11-23] MEDS: Heparin Sodium 100 Units/ML 3 ML Syringe FLUSH SCH ×6 (01:57→21:43)
[2017-11-23] MEDS: Sodium Chloride 0.9% 10 ML Syringe FLUSH SCH ×6 (01:57→21:42)
[2017-11-23] MEDS: Furosemide 40 MG Tab PO SCH ×2 (06:01→19:20)
[2017-11-23] MEDS: Tiotropium Inhaler 18 MCG Inhalation Powder Cap Kit of 5 INH SCH (06:02)
[2017-11-23] MEDS: Albuterol/Ipratropium 3.0-0.5 MG/3 ML Neb Soln NEB SCH ×2 (07:05→19:19)
[2017-11-23] MEDS: cefTRIAXone 2 GM Vial IVPUSH SCH ×2 (08:11→20:59)
[2017-11-23] MEDS: Formoterol/Mometasone 200-5 MCG 8.8 GM Inhaler IH SCH ×2 (08:11→19:19)
[2017-11-23] MEDS: Diltiazem 180 MG Cap.CD PO SCH (08:19)
[2017-11-23] MEDS: Lactobacillus Rhamnosus GG (Probiotic) Cap PO SCH ×2 (08:19→16:41)
[2017-11-23] MEDS: Magnesium Oxide 400 MG Tab PO SCH (08:19)
[2017-11-23] MEDS: Allopurinol 300 MG Tab PO SCH (08:19)
[2017-11-23] MEDS: Warfarin 2.5 MG Tab PO SCH (16:41)
[2017-11-23] MEDS: Metoprolol Succinate 25 MG Tab.ER PO SCH (19:19)
[2017-11-24] MEDS: Sodium Chloride 0.9% 10 ML Syringe FLUSH SCH ×6 (01:20→21:46)
[2017-11-24] MEDS: Ampicillin 2 GM in Sodium Chloride 0.9% 100 ML IV SCH ×6 (01:21→21:45)
[2017-11-24] MEDS: Sodium Chloride 0.9% 10 ML Syringe IV PRN ×3 (02:05→09:13)
[2017-11-24] MEDS: Heparin Sodium 100 Units/ML 3 ML Syringe FLUSH SCH ×6 (02:05→21:53)
[2017-11-24] MEDS: Tiotropium Inhaler 18 MCG Inhalation Powder Cap Kit of 5 INH SCH (06:17)
[2017-11-24] MEDS: Furosemide 40 MG Tab PO SCH ×2 (06:18→20:58)
[2017-11-24] MEDS: Albuterol/Ipratropium 3.0-0.5 MG/3 ML Neb Soln NEB SCH ×2 (06:55→20:51)
[2017-11-24] MEDS: Allopurinol 300 MG Tab PO SCH (08:39)
[2017-11-24] MEDS: Magnesium Oxide 400 MG Tab PO SCH (08:39)
[2017-11-24] MEDS: Lactobacillus Rhamnosus GG (Probiotic) Cap PO SCH ×2 (08:39→17:39)
[2017-11-24] MEDS: Diltiazem 180 MG Cap.CD PO SCH (08:39)
--- NOTE | 2017-11-24 08:42 | PCM.SN ---
- Free Text/Narrative Note: S: Met with patient and family this am to review course/answer questions. Patient states he is feeling better each day and does feel his strength is improving. No fever or chills. Family concerned about a blister on the top of his left foot - not sure how long it has been there. No surrounding redness. Also wondering if he could be on a lower sugar diet as they are concerned about high blood sugars and the potential effect this will have on feeding infections. Last, they also just wanted to make sure that his urostomy bag is getting changed every 3 days. The patient has no other questions. O: Vitals reviewed. Alert and oriented. Sitting up to the wheelchair in no distress. On the dorsal aspect of his left 2nd toe, he does have a scab overlying a ruptured blister without any surrounding erythema or edema. A/P: #1 Foot blister - Will discuss with nursing to place a gauze over this for protection when he is wearing shoes and to have him go barefoot when just resting in bed or in the chair. - No further intervention unless not resolving. #[address] - Will confirm his urostomy is being changed every 3 days. #3 Diet - Will adjust diet to ADA, heart healthy given family concerns as noted above. ADDENDUM: Called later by nursing due to difficulties with the PICC line. Difficult to flush today and at the 6 cm deepa, which is further out than it was this weekend. Will repeat CXR to confirm placement. Will then try activase per pharmacy.
[2017-11-24] MEDS: Formoterol/Mometasone 200-5 MCG 8.8 GM Inhaler IH SCH ×2 (08:45→20:54)
[2017-11-24] MEDS: cefTRIAXone 2 GM Vial IVPUSH SCH ×2 (08:46→21:42)
[2017-11-24] MEDS: Alteplase 2 MG Vial IV PRN ×2 (11:33→14:11)
[2017-11-24] MEDS: Warfarin 5 MG Tab PO SCH (17:39)
[2017-11-24] MEDS: Metoprolol Succinate 25 MG Tab.ER PO SCH (20:51)
[2017-11-25] MEDS: Ampicillin 2 GM in Sodium Chloride 0.9% 100 ML IV SCH ×6 (01:38→21:31)
[2017-11-25] MEDS: Heparin Sodium 100 Units/ML 3 ML Syringe FLUSH SCH ×6 (01:39→21:31)
[2017-11-25] MEDS: Sodium Chloride 0.9% 10 ML Syringe FLUSH SCH ×6 (01:39→22:20)
[2017-11-25] MEDS: Furosemide 40 MG Tab PO SCH ×2 (06:51→20:42)
[2017-11-25] MEDS: Tiotropium Inhaler 18 MCG Inhalation Powder Cap Kit of 5 INH SCH (06:51)
[2017-11-25] MEDS: Albuterol/Ipratropium 3.0-0.5 MG/3 ML Neb Soln NEB SCH ×2 (07:11→20:40)
[2017-11-25] MEDS: cefTRIAXone 2 GM Vial IVPUSH SCH ×2 (09:08→20:53)
[2017-11-25] MEDS: Lactobacillus Rhamnosus GG (Probiotic) Cap PO SCH ×2 (09:08→17:15)
[2017-11-25] MEDS: Allopurinol 300 MG Tab PO SCH (09:09)
[2017-11-25] MEDS: Magnesium Oxide 400 MG Tab PO SCH (09:09)
[2017-11-25] MEDS: Diltiazem 180 MG Cap.CD PO SCH (09:09)
[2017-11-25] MEDS: Formoterol/Mometasone 200-5 MCG 8.8 GM Inhaler IH SCH ×2 (09:10→20:41)
[2017-11-25] MEDS: Warfarin 5 MG Tab PO SCH (17:15)
[2017-11-25] MEDS: Metoprolol Succinate 25 MG Tab.ER PO SCH (20:42)
[2017-11-26] MEDS: Ampicillin 2 GM in Sodium Chloride 0.9% 100 ML IV SCH ×7 (01:08→20:49)
[2017-11-26] MEDS: Heparin Sodium 100 Units/ML 3 ML Syringe FLUSH SCH ×7 (01:09→21:26)
[2017-11-26] MEDS: Sodium Chloride 0.9% 10 ML Syringe FLUSH SCH ×7 (01:14→21:27)
[2017-11-26] MEDS: Furosemide 40 MG Tab PO SCH ×2 (06:19→20:39)
[2017-11-26] MEDS: Tiotropium Inhaler 18 MCG Inhalation Powder Cap Kit of 5 INH SCH (06:20)
[2017-11-26] MEDS: Albuterol/Ipratropium 3.0-0.5 MG/3 ML Neb Soln NEB SCH ×2 (07:12→20:39)
[2017-11-26] MEDS: Formoterol/Mometasone 200-5 MCG 8.8 GM Inhaler IH SCH ×2 (07:49→20:40)
[2017-11-26] MEDS: Magnesium Oxide 400 MG Tab PO SCH (07:50)
[2017-11-26] MEDS: Lactobacillus Rhamnosus GG (Probiotic) Cap PO SCH ×2 (07:50→17:35)
[2017-11-26] MEDS: Allopurinol 300 MG Tab PO SCH (07:50)
[2017-11-26] MEDS: Diltiazem 180 MG Cap.CD PO SCH (07:50)
[2017-11-26] MEDS: cefTRIAXone 2 GM Vial IVPUSH SCH ×2 (08:24→20:39)
[2017-11-26] MEDS: Warfarin 5 MG Tab PO SCH (17:35)
[2017-11-26] MEDS: Metoprolol Succinate 25 MG Tab.ER PO SCH (20:42)
[2017-11-27] MEDS: Ampicillin 2 GM in Sodium Chloride 0.9% 100 ML IV SCH ×6 (01:04→20:41)
[2017-11-27] MEDS: Heparin Sodium 100 Units/ML 3 ML Syringe FLUSH SCH ×6 (01:12→21:54)
[2017-11-27] MEDS: Sodium Chloride 0.9% 10 ML Syringe FLUSH SCH ×6 (01:12→21:54)
[2017-11-27] MEDS: Albuterol/Ipratropium 3.0-0.5 MG/3 ML Neb Soln NEB SCH ×2 (06:52→20:41)
[2017-11-27] MEDS: Diltiazem 180 MG Cap.CD PO SCH (07:39)
[2017-11-27] MEDS: Lactobacillus Rhamnosus GG (Probiotic) Cap PO SCH ×2 (07:39→17:57)
[2017-11-27] MEDS: Magnesium Oxide 400 MG Tab PO SCH (07:40)
[2017-11-27] MEDS: Allopurinol 300 MG Tab PO SCH (07:40)
[2017-11-27] MEDS: Tiotropium Inhaler 18 MCG Inhalation Powder Cap Kit of 5 INH SCH (07:40)
[2017-11-27] MEDS: Furosemide 40 MG Tab PO SCH ×2 (07:40→20:42)
[2017-11-27] MEDS: Formoterol/Mometasone 200-5 MCG 8.8 GM Inhaler IH SCH ×2 (07:40→20:42)
[2017-11-27] MEDS: cefTRIAXone 2 GM Vial IVPUSH SCH ×2 (09:28→20:41)
--- NOTE | 2017-11-27 11:00 | PCM.SN ---
- Free Text/Narrative Note: S: Contacted by nursing that patient had a bloody bowel movement. He did not see this so is not sure. Nursing note this was a formed bowel movement that was fairly hard. This was mostly brown stool mixed with bright red "strings" of blood throughout. Last BM was yesterday. No blood in that that he knows of. No abdominal pain, fever, or chills. No rectal pain. Has been more tired the past couple of days but denies any chest pain, lightheadedness, or shortness of breath. O: Vitals reviewed. Patient is sitting up in chair in no acute distress. Mucous membranes moist. Heart with irregularly irregular rhythm but normal rate; stable murmur. Lungs CTAB. Abdomen soft, nontender, nondistended. No leg edema. A/P: #1 Rectal bleeding - Will need to do rectal exam at some point but will defer until patient is back in bed. - Suspect hemorrhoids or anal fissure given report of a harder BM. - Will check CBC and INR today. - Further work-up will be deferred if this is a 1 time event. - If ongoing issues, may need to transfer to [place] for further work-up.
[2017-11-27] MEDS: Metoprolol Succinate 25 MG Tab.ER PO SCH (20:42)
[2017-11-28] MEDS: Ampicillin 2 GM in Sodium Chloride 0.9% 100 ML IV SCH ×6 (01:51→21:07)
[2017-11-28] MEDS: Sodium Chloride 0.9% 10 ML Syringe FLUSH SCH ×6 (01:54→21:43)
[2017-11-28] MEDS: Heparin Sodium 100 Units/ML 3 ML Syringe FLUSH SCH ×6 (03:14→21:43)
[2017-11-28] MEDS: Sodium Chloride 0.9% 10 ML Syringe IV PRN ×4 (03:14→21:07)
[2017-11-28] MEDS: Furosemide 40 MG Tab PO SCH ×2 (06:57→19:18)
[2017-11-28] MEDS: Albuterol/Ipratropium 3.0-0.5 MG/3 ML Neb Soln NEB SCH ×2 (06:57→19:18)
[2017-11-28] MEDS: Tiotropium Inhaler 18 MCG Inhalation Powder Cap Kit of 5 INH SCH (06:59)
[2017-11-28] MEDS: Magnesium Oxide 400 MG Tab PO SCH (09:42)
[2017-11-28] MEDS: Lactobacillus Rhamnosus GG (Probiotic) Cap PO SCH ×2 (09:42→17:14)
[2017-11-28] MEDS: Allopurinol 300 MG Tab PO SCH (09:42)
[2017-11-28] MEDS: Diltiazem 180 MG Cap.CD PO SCH (09:42)
[2017-11-28] MEDS: cefTRIAXone 2 GM Vial IVPUSH SCH ×2 (09:44→21:02)
[2017-11-28] MEDS: Formoterol/Mometasone 200-5 MCG 8.8 GM Inhaler IH SCH ×2 (09:44→19:17)
[2017-11-28] MEDS: Acetaminophen 500 MG Tab PO PRN (14:03)
[2017-11-28] MEDS ORDERED: predniSONE 20 MG Tab PO ONE (17:36)
--- NOTE | 2017-11-28 17:43 | PCM.PN ---
- General Info Date of Service: 11/28/17 Subjective Update: pt had acute onset of pain and swelling right foot He has cramping around the ankle and also pain around large toe. He has a hx of gout OBJ: pt sitting in chair in NAD; no temperature ecchymosis and abrasion right ceja- familyssays this is old Enlarged mildly tender first metatarsal joint right, ankle mildly swollen and tender - Patient Data Vitals - Most Recent: Last Vital Signs Temp 97.6 F 11/28/17 05:43 Pulse 71 11/28/17 05:43 Resp 20 11/28/17 05:43 BP 112/67 11/28/17 05:43 Pulse Ox 90 L 11/28/17 07:05 Weight - Most Recent: 212 lb 4 oz I&O - Last 24 Hours: Intake & Output 11/28/17 11/28/17 11/28/17 06:59 14:59 22:59 Intake Total 190 680 100 Output Total 1050 1250 Balance -860 680 -1150 Lab Results Last 24 Hours: Laboratory Results - last 24 hr 11/28/17 11/28/17 Range/Units 15:03 15:03 WBC 9.7 (4.0-10.0) x10^3/uL RBC 4.03 L (4.5-6.0) x10^6/uL Hgb 14.3 (14.0-18.0) g/dL Hct 41.1 (40.0-52.0) % MCV 102.0 H (78.0-93.0) fL MCH 35.5 H (26.0-32.0) pg MCHC 34.8 (32.0-36.0) g/dL RDW Coeff of Lety 13.9 (10.0-15.0) % Plt Count 268 (130-400) x10^3/uL Uric Acid 4.1 (3.5-7.2) mg/dL Med Orders - Current: Current Medications Acetaminophen (Tylenol Extra Strength) 1,000 mg PO QID PRN PRN Reason: Pain Last Admin: 11/28/17 14:03 Dose: 1,000 mg Albuterol/Ipratropium (Duoneb 3.0-0.5 Mg/3 Ml) 3 ml NEB BIDRT NATALYA Last Admin: 09/08/18 06:57 Dose: 3 ml Allopurinol (Zyloprim) 300 mg PO DAILY [facility] Last Admin: 11/28/17 09:42 Dose: 300 mg Alteplase, Recombinant (Cathflo Activase) 2 mg IV ASDIRECTED PRN PRN Reason: OCCLUDED PICC Last Admin: 11/24/17 14:11 Dose: 2 mg Bisacodyl (Dulcolax) 5 mg PO DAILY PRN PRN Reason: Constipation Ceftriaxone Sodium (Rocephin) 2 gm IVPUSH Q12H [facility] Stop: 12/15/17 21:01 Last Admin: 11/28/17 09:44 Dose: 2 gm Diltiazem HCl (Cardizem Cd) 180 mg PO DAILY [facility] Last Admin: 11/28/17 09:42 Dose: 180 mg Furosemide (Lasix) 40 mg PO BID@0700,1999 [facility] Last Admin: 11/28/17 06:57 Dose: 40 mg Heparin Sodium (Porcine) (Heparin Lock Flush 100 Units/Ml) 300 unit FLUSH Q4H [facility] Last Admin: 11/28/17 17:14 Dose: 300 unit Heparin Sodium (Porcine) (Heparin Lock Flush 100 Units/Ml) 300 unit IVPUSH ASDIRECTED PRN PRN Reason: Keep Vein Open Last Admin: 11/19/17 07:41 Dose: 300 unit Ampicillin Sodium 2 gm/ Sodium (Chloride) 100 mls @ 200 mls/hr IV Q4H [facility] Stop: 12/15/17 14:59 Last Admin: 11/28/17 17:14 Dose: 200 mls/hr Lactobacillus Rhamnosus (Culturelle) 1 cap PO BID@0800,1700 [facility] Last Admin: 11/28/17 17:14 Dose: 1 cap Lactulose (Cephulac) 20 gm PO TID PRN PRN Reason: constipation Magnesium Oxide (Magnesium Oxide) 400 mg PO DAILY [facility] Last Admin: 11/28/17 09:42 Dose: 400 mg Metoprolol Succinate (Toprol Xl) 25 mg PO DAILY@1999 [facility] Last Admin: 11/27/17 20:42 Dose: 25 mg Mometasone Furoate/Formoterol Fumar (Dulera 200-5 Mcg) 2 puff IH BID [facility] Last Admin: 11/28/17 09:44 Dose: 2 puff Prednisone (Prednisone) 20 mg PO ONETIME ONE Stop: 11/28/17 17:37 Promethazine HCl/Codeine (Phenergan With Codeine) 5 ml PO QID PRN PRN Reason: Cough Last Admin: 11/19/17 19:54 Dose: 5 ml Senna/Docusate Sodium (Senna Plus) 1 tab PO BID@0700,1700 [facility] Last Admin: 11/28/17 17:14 Dose: 1 tab Sodium Chloride (Saline Flush) 10 ml FLUSH Q4H [facility] Last Admin: 11/28/17 17:15 Dose: 10 ml Sodium Chloride (Saline Flush) 10 ml IV ASDIRECTED PRN PRN Reason: Keep Vein Open Last Admin: 11/28/17 06:08 Dose: 10 ml Tiotropium [place] (Spiriva Handihaler) 18 mcg INH DAILY@0700 [facility] Last Admin: 11/28/17 06:59 Dose: 18 mcg Discontinued Medications Heparin Sodium (Porcine) (Heparin Lock Flush 100 Units/Ml) 300 unit FLUSH ASDIRECTED [facility] Last Admin: 11/13/17 14:34 Dose: 300 unit Lactobacillus Rhamnosus (Culturelle) 1 cap PO BID@1100,1900 [facility] Last Admin: 11/15/17 12:28 Dose: 1 cap Non-Formulary Medication (Ampicillin) 2 gm IV Q4H [facility] Sodium Chloride (Saline Flush) 10 ml FLUSH ASDIRECTED [facility] Last Admin: 11/13/17 14:35 Dose: 10 ml Warfarin Sodium (Coumadin) 1 mg PO DAILY@2000 [facility] Last Admin: 11/15/17 20:18 Dose: 1 mg Warfarin Sodium (Coumadin) 5 mg PO SUTUWETHSA@1700 [facility] Stop: 11/26/17 17:01 Last Admin: 11/26/17 17:35 Dose: 5 mg Warfarin Sodium (Coumadin) 2.5 mg PO MoFr@1700 [facility] Stop: 11/26/17 17:01 Last Admin: 11/23/17 16:41 Dose: 2.5 mg - Problem List Review Problem List Initiated/Reviewed/Updated: Yes - My Orders Last 24 Hours: My Active Orders 11/28/17 14:43 Blood Culture x2 Reflex Set [OM.PC] Stat 11/28/17 14:50 Foot 2V Rt [CR] Routine 11/28/17 15:03 CULTURE BLOOD [BC] Stat 11/28/17 15:13 CULTURE BLOOD [BC] Stat 11/28/17 16:04 Ankle 2V Rt [CR] Routine 11/28/17 17:36 predniSONE 20 mg PO ONETIME ONE - Assessment Assessment:: Ankle and foot xray neg for bony injury IMP Acute right foot pain- possible gout, even with nl uric acid. NL WBC and temp make seeding lass likely Plan: trial of prednisone 20 mg today, check for result in AM - Plan Plan:: 82 yo male admitted for IV antibiotics and therapy after acute hospitalization at [facility] for endocarditis and nephrolithiasis with hydronephrosis. #1 Endocarditis of resighini valve #2 Gram positive bacteremia - Patient will be on ceftriaxone and ampicillin through 12/15. - Monitoring labs (CBC, ALT, and creatinine) weekly. - No ID follow-up currently scheduled but he will need to follow-up with them outpatient as well. #3 Renal calculus, left #4 Hydronephrosis, secondary to #3 - S/P nephrostomy tube placement. - Urology follow-up is scheduled 11/30/17. 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 - As above, he will need ongoing follow-up with ID in the future. #6 Chronic Kidney Disease - Creatinine normalized while hospitalized in [place]. - Will be monitored weekly while on antibiotics. - Will avoid any additional renal stress. #7 Generalized Weakness - Secondary to illnesses and hospitalizations. - PT/OT consults. #8 COPD, severe #9 Diastolic Heart Failure #10 Chronic hypoxic respiratory failure - No acute symptoms. - Continue home medications and oxygen per home dosing. #11 Severe Mitral Regurgitation - Outpatient cardiology follow-up has been scheduled for 01/14. #12 Chronic Atrial Fibrillation #13 History of PE #14 Chronic Anticoagulation - No acute symptoms. - Continue home medications. - INR to be 1 mg daily through the weekend per orders from [place]. - INR recheck on Thursday. #15 Constipation - Continue home medications. Patient is admitted to swing bed for IV antibiotics and PT. Will be admitted at least through 12/15 and after that depends on therapy course. No VTE prophylaxis indicated as patient is therapeutically anticoagulated with warfarin. Code status is DNR/DNI - discussed with patient on admission and consistent with multiple prior hospitalizations and outpatient discussions.
[2017-11-28] MEDS: traMADol 50 MG Tab PO PRN (18:11)
[2017-11-28] MEDS: Metoprolol Succinate 25 MG Tab.ER PO SCH (19:17)
[2017-11-29] MEDS: traMADol 50 MG Tab PO PRN ×2 (00:40→08:34)
[2017-11-29] MEDS: Ampicillin 2 GM in Sodium Chloride 0.9% 100 ML IV SCH ×6 (00:45→20:37)
[2017-11-29] MEDS: Sodium Chloride 0.9% 10 ML Syringe IV PRN ×8 (00:45→20:37)
[2017-11-29] MEDS: Heparin Sodium 100 Units/ML 3 ML Syringe FLUSH SCH ×6 (01:23→21:12)
[2017-11-29] MEDS: Sodium Chloride 0.9% 10 ML Syringe FLUSH SCH ×6 (01:23→21:12)
[2017-11-29] MEDS: Tiotropium Inhaler 18 MCG Inhalation Powder Cap Kit of 5 INH SCH (06:07)
[2017-11-29] MEDS: Furosemide 40 MG Tab PO SCH ×2 (06:07→20:06)
[2017-11-29] MEDS: Albuterol/Ipratropium 3.0-0.5 MG/3 ML Neb Soln NEB SCH ×2 (06:07→20:06)
[2017-11-29] MEDS: Diltiazem 180 MG Cap.CD PO SCH (08:32)
[2017-11-29] MEDS: Allopurinol 300 MG Tab PO SCH (08:32)
[2017-11-29] MEDS: cefTRIAXone 2 GM Vial IVPUSH SCH ×2 (08:32→20:07)
[2017-11-29] MEDS: Magnesium Oxide 400 MG Tab PO SCH (08:33)
[2017-11-29] MEDS: Lactobacillus Rhamnosus GG (Probiotic) Cap PO SCH ×2 (08:33→17:10)
[2017-11-29] MEDS: Formoterol/Mometasone 200-5 MCG 8.8 GM Inhaler IH SCH ×2 (08:35→20:05)
[2017-11-29] MEDS ORDERED: traMADol 50 MG Tab PO PRN (09:52)
[2017-11-29] MEDS ORDERED: predniSONE 10 MG Tab PO ONE (10:00)
--- NOTE | 2017-11-29 10:17 | PCM.SN ---
- Free Text/Narrative Note: Fup right foot pain. Pt recevied 20 mg po prednisone last night and 3 tramadol 50 mg over the last 18 hours. He has no pain today Pt has had no fever but temp taken only once Right lower leg is still reddened, yousif at ankle and large toe but less so, no edema Lungs: few rales right base,clear left Cor : s1s2 normal with 2/6 murmur? S3 heart rate 80 and irr IMP 1. Right foot and ankle pain- possible gout- will give 15 prednisone today, taper tramadol; folow temp carefully 2. ? Gallop and 10 lbs weight gain- will give extra 40 lasix po today, check BMP , BNP in [place]- may need f/up Echo preop
[2017-11-29] MEDS ORDERED: Furosemide 40 MG Tab PO ONE (11:58)
[2017-11-29 12:42] LABS: ANION GAP 7.8 mmol/L (10-20)
[2017-11-29] MEDS: Metoprolol Succinate 25 MG Tab.ER PO SCH (20:05)
[2017-11-30] MEDS: Ampicillin 2 GM in Sodium Chloride 0.9% 100 ML IV SCH ×6 (01:11→20:31)
[2017-11-30] MEDS: Sodium Chloride 0.9% 10 ML Syringe IV PRN ×3 (01:11→06:44)
[2017-11-30] MEDS: Sodium Chloride 0.9% 10 ML Syringe FLUSH SCH ×6 (01:43→21:30)
[2017-11-30] MEDS: Heparin Sodium 100 Units/ML 3 ML Syringe FLUSH SCH ×6 (01:44→21:30)
[2017-11-30] MEDS: Furosemide 40 MG Tab PO SCH ×2 (06:03→20:28)
[2017-11-30] MEDS: Tiotropium Inhaler 18 MCG Inhalation Powder Cap Kit of 5 INH SCH (06:04)
[2017-11-30] MEDS: Heparin Sodium 100 Units/ML 3 ML Syringe IVPUSH PRN (06:45)
[2017-11-30] MEDS: Albuterol/Ipratropium 3.0-0.5 MG/3 ML Neb Soln NEB SCH ×2 (07:09→20:28)
[2017-11-30] MEDS: Lactobacillus Rhamnosus GG (Probiotic) Cap PO SCH ×2 (07:48→17:43)
[2017-11-30] MEDS: Allopurinol 300 MG Tab PO SCH (07:48)
[2017-11-30] MEDS: Diltiazem 180 MG Cap.CD PO SCH (07:48)
[2017-11-30] MEDS: Magnesium Oxide 400 MG Tab PO SCH (07:48)
[2017-11-30] MEDS: Formoterol/Mometasone 200-5 MCG 8.8 GM Inhaler IH SCH ×2 (07:48→20:28)
--- NOTE | 2017-11-30 08:28 | PCM.PN ---
- General Info Date of Service: 11/30/17 Subjective Update: Patient seen this morning due to events over the weekend and plan for discharge tomorrow to [place] for a procedure. He reports that he is feeling well today. He feels his strength is improving. He had some right foot and ankle pain over the weekend that was treated with prednisone and is doing much better today. He states the swelling and redness are improving, as is his pain. He is now able to walk on this foot without any issues. He was given an extra dose of lasix over the weekend for weight gain and rales on lung exam as well. His weight is down. He denies any chest pain, shortness of breath, or leg swelling. He has had a chronic cough and chronic shortness of breath, both of which are at his baseline today. No fever or chills. He has continued with blood streaked stools over the weekend but these remain formed and mostly brown in color. He denies any abdominal pain or rectal pain. Family wonders about checking a magnesium and also if he should have been on lovenox or not. - Review of Systems General: Reports: No Symptoms HEENT: Reports: No Symptoms Pulmonary: Reports: No Symptoms Cardiovascular: Reports: No Symptoms Gastrointestinal: Reports: No Symptoms Genitourinary: Reports: No Symptoms Musculoskeletal: Reports: No Symptoms Skin: Reports: No Symptoms Neurological: Reports: No Symptoms - Patient Data Vitals - Most Recent: Last Vital Signs Temp 36.5 C 11/30/17 05:37 Pulse 76 11/30/17 05:37 Resp 21 H 11/30/17 05:37 BP 118/72 11/30/17 05:37 Pulse Ox 95 11/30/17 07:10 Weight - Most Recent: 95.345 kg I&O - Last 24 Hours: Intake & Output 11/29/17 11/30/17 11/30/17 22:59 06:59 14:59 Intake Total 565 210 Output Total 1250 3200 Balance -685 2990 Lab Results Last 24 Hours: Laboratory Results - last 24 hr 11/29/17 11/30/17 11/30/17 Range/Units 11:57 06:30 06:30 WBC 10.8 H (4.0-10.0) x10^3/uL RBC 3.98 L (4.5-6.0) x10^6/uL Hgb 13.6 L (14.0-18.0) g/dL Hct 41.4 (40.0-52.0) % MCV 104.0 H (78.0-93.0) fL MCH 34.2 H (26.0-32.0) pg MCHC 32.9 (32.0-36.0) g/dL RDW Coeff of Lety 13.6 (10.0-15.0) % Plt Count 236 (130-400) x10^3/uL Neut % (Auto) 66.8 (50.0-80.0) % Lymph % (Auto) 22.4 L (25.0-50.0) % Weld % (Auto) 10.2 (2.0-11.0) % Eos % (Auto) 0.4 (0.0-4.0) % Baso % (Auto) 0.2 (0.2-1.2) % Sodium 137 (136-145) mmol/L Potassium 3.8 (3.5-5.1) mmol/L Chloride 99 (98-107) mmol/L Carbon Dioxide 34 H (21-32) mmol/L Anion Gap 7.8 L (10-20) mmol/L BUN 30 H (7-18) mg/dL Creatinine 1.5 H 1.3 (0.70-1.30) mg/dL Est Cr Clr Drug Dosing 40.29 46.49 mL/min Estimated GFR (MDRD) 45 53 Glucose 164 H (74-106) mg/dL Calcium 9.3 (8.5-10.1) mg/dL ALT 21 (16-63) U/L NT-Pro-B Natriuret Pep 1065 H (<=450) pg/mL Joce Results Last 24 Hours: Microbiology 11/28/17 15:13 Aerobic Blood Culture - Preliminary Blood - Venous - Lab Draw NO GROWTH AFTER 1 DAY Anaerobic Blood Culture - Preliminary NO GROWTH AFTER 1 DAY 11/28/17 15:03 Aerobic Blood Culture - Preliminary Blood - Venous NO GROWTH AFTER 1 DAY Anaerobic Blood Culture - Preliminary NO GROWTH AFTER 1 DAY Med Orders - Current: Current Medications Acetaminophen (Tylenol Extra Strength) 1,000 mg PO QID PRN PRN Reason: Pain Last Admin: 11/28/17 14:03 Dose: 1,000 mg Albuterol/Ipratropium (Duoneb 3.0-0.5 Mg/3 Ml) 3 ml NEB BIDRT [facility] Last Admin: 11/30/17 07:09 Dose: 3 ml Allopurinol (Zyloprim) 300 mg PO DAILY [facility] Last Admin: 11/30/17 07:48 Dose: 300 mg Alteplase, Recombinant (Cathflo Activase) 2 mg IV ASDIRECTED PRN PRN Reason: OCCLUDED PICC Last Admin: 11/24/17 14:11 Dose: 2 mg Bisacodyl (Dulcolax) 5 mg PO DAILY PRN PRN Reason: Constipation Ceftriaxone Sodium (Rocephin) 2 gm IVPUSH Q12H [facility] Stop: 12/15/17 21:01 Last Admin: 11/29/17 20:07 Dose: 2 gm Diltiazem HCl (Cardizem Cd) 180 mg PO DAILY [facility] Last Admin: 11/30/17 07:48 Dose: 180 mg Furosemide (Lasix) 40 mg PO BID@0700,1999 [facility] Last Admin: 11/30/17 06:03 Dose: 40 mg Heparin Sodium (Porcine) (Heparin Lock Flush 100 Units/Ml) 300 unit FLUSH Q4H [facility] Last Admin: 11/30/17 05:45 Dose: 300 unit Heparin Sodium (Porcine) (Heparin Lock Flush 100 Units/Ml) 300 unit IVPUSH ASDIRECTED PRN PRN Reason: Keep Vein Open Last Admin: 11/30/17 06:45 Dose: 300 unit Ampicillin Sodium 2 gm/ Sodium (Chloride) 100 mls @ 200 mls/hr IV Q4H [facility] Stop: 12/15/17 14:59 Last Admin: 11/30/17 04:57 Dose: 200 mls/hr Lactobacillus Rhamnosus (Culturelle) 1 cap PO BID@0800,1700 [facility] Last Admin: 11/30/17 07:48 Dose: 1 cap Lactulose (Cephulac) 20 gm PO TID PRN PRN Reason: constipation Magnesium Oxide (Magnesium Oxide) 400 mg PO DAILY [facility] Last Admin: 11/30/17 07:48 Dose: 400 mg Metoprolol Succinate (Toprol Xl) 25 mg PO DAILY@1999 [facility] Last Admin: 11/29/17 20:05 Dose: 25 mg Mometasone Furoate/Formoterol Fumar (Dulera 200-5 Mcg) 2 puff IH BID [facility] Last Admin: 11/30/17 07:48 Dose: 2 puff Senna/Docusate Sodium (Senna Plus) 1 tab PO BID@0700,1700 [facility] Last Admin: 11/30/17 06:03 Dose: 1 tab Sodium Chloride (Saline Flush) 10 ml FLUSH Q4H [facility] Last Admin: 11/30/17 05:45 Dose: 10 ml Sodium Chloride (Saline Flush) 10 ml IV ASDIRECTED PRN PRN Reason: Keep Vein Open Last Admin: 11/30/17 06:44 Dose: 10 ml Tiotropium [place] (Spiriva Handihaler) 18 mcg INH DAILY@0700 [facility] Last Admin: 11/30/17 06:04 Dose: 18 mcg Tramadol HCl (Ultram) 50 mg PO Q8H PRN PRN Reason: Breakthrough Pain Discontinued Medications Furosemide (Lasix) 40 mg PO ONETIME ONE Stop: 11/29/17 11:59 Last Admin: 11/29/17 11:35 Dose: 40 mg Heparin Sodium (Porcine) (Heparin Lock Flush 100 Units/Ml) 300 unit FLUSH ASDIRECTED [facility] Last Admin: 11/13/17 14:34 Dose: 300 unit Lactobacillus Rhamnosus (Culturelle) 1 cap PO BID@1100,1900 [facility] Last Admin: 11/15/17 12:28 Dose: 1 cap Non-Formulary Medication (Ampicillin) 2 gm IV Q4H [facility] Prednisone (Prednisone) 20 mg PO ONETIME ONE Stop: 11/28/17 17:37 Last Admin: 11/28/17 17:50 Dose: 20 mg Prednisone (Prednisone) 15 mg PO DAILY ONE Stop: 11/29/17 10:01 Last Admin: 11/29/17 11:36 Dose: 15 mg Promethazine HCl/Codeine (Phenergan With Codeine) 5 ml PO QID PRN PRN Reason: Cough Last Admin: 11/19/17 19:54 Dose: 5 ml Sodium Chloride (Saline Flush) 10 ml FLUSH ASDIRECTED [facility] Last Admin: 11/13/17 14:35 Dose: 10 ml Tramadol HCl (Ultram) 50 mg PO Q6H PRN PRN Reason: Breakthrough Pain Last Admin: 11/29/17 08:34 Dose: 50 mg Warfarin Sodium (Coumadin) 1 mg PO DAILY@1999 [facility] Last Admin: 11/15/17 20:18 Dose: 1 mg Warfarin Sodium (Coumadin) 5 mg PO SUTUWETHSA@1700 [facility] Stop: 11/26/17 17:01 Last Admin: 11/26/17 17:35 Dose: 5 mg Warfarin Sodium (Coumadin) 2.5 mg PO MoFr@170 [facility] Stop: 11/26/17 17:01 Last Admin: 11/23/17 16:41 Dose: 2.5 mg - Exam General: Alert, Oriented, Cooperative, No Acute Distress HEENT: Pupils Equal, Pupils Reactive, Mucous Membr. Moist/[place] Neck: Supple, Trachea Midline, No Thyromegaly. No: Lymphadenopathy Lungs: Clear to Auscultation, Normal Respiratory Effort Cardiovascular: Regular Rate, Irregular Rhythm, Murmurs GI/Abdominal Exam: Normal Bowel Sounds, Soft, Non-Tender, No Organomegaly, No Distention, No Mass Extremities: No Pedal Edema, Normal Capillary Refill, Other (right ankle and 1st MTP still with some edema and erythema but minimal tenderness to palpation) Peripheral Pulses: 2+: Radial (L), Radial (R) Skin: Warm, Dry, Intact Neurological: No New Focal Deficit - Problem List & Annotations (1) Endocarditis of [place] valve SNOMED Code(s): 50784645 Code(s): I38 - ENDOCARDITIS, VALVE UNSPECIFIED Status: Acute Current Visit: No (2) Gram-positive bacteremia SNOMED Code(s): 613708739127 Code(s): R78.81 - BACTEREMIA Status: Acute Current Visit: No (3) Renal calculus, left SNOMED Code(s): 33705564 Code(s): N20.0 - CALCULUS OF KIDNEY Status: Acute Current Visit: No (4) Hydronephrosis SNOMED Code(s): 99238169 Code(s): N13.30 - UNSPECIFIED HYDRONEPHROSIS Status: Acute Priority: Low Current Visit: No Qualifiers: Hydronephrosis type: with ureteral calculous obstruction Qualified Code(s) : N13.2 - Hydronephrosis with renal and ureteral calculous obstruction (5) Recurrent UTI SNOMED Code(s): 393037751 Code(s): N39.0 - URINARY TRACT INFECTION, SITE NOT SPECIFIED Status: Chronic Current Visit: No (6) Chronic kidney disease SNOMED Code(s): 844686288 Code(s): N18.9 - CHRONIC KIDNEY DISEASE, UNSPECIFIED Status: Chronic Current Visit: No Qualifiers: Chronic kidney disease stage: stage 3 (moderate) Qualified Code(s): N18.3 - Chronic kidney disease, stage 3 (moderate) (7) Weakness SNOMED Code(s): 53375706 Code(s): R53.1 - WEAKNESS Status: Acute Priority: Medium Current Visit : No (8) COPD, severe SNOMED Code(s): 996823494 Code(s): J44.9 - CHRONIC OBSTRUCTIVE PULMONARY DISEASE, UNSPECIFIED Status : Chronic Current Visit: No (9) Diastolic heart failure SNOMED Code(s): 637972263 Code(s): I50.30 - UNSPECIFIED DIASTOLIC (CONGESTIVE) HEART FAILURE Status: Chronic Current Visit: No Qualifiers: Heart failure chronicity: chronic Qualified Code(s): I50.32 - Chronic diastolic (congestive) heart failure (10) Chronic respiratory failure with hypoxia SNOMED Code(s): 805496558 Code(s): J96.11 - CHRONIC RESPIRATORY FAILURE WITH HYPOXIA Status: Chronic Current Visit: No (11) Mitral regurgitation SNOMED Code(s): 32358210 Code(s): I34.0 - NONRHEUMATIC MITRAL (VALVE) INSUFFICIENCY Status: Chronic Current Visit: No Qualifiers: Cardiac valve disease etiology: nonrheumatic Qualified Code(s): I34.0 - Nonrheumatic mitral (valve) insufficiency (12) Chronic atrial fibrillation SNOMED Code(s): 436908086 Code(s): I48.2 - CHRONIC ATRIAL FIBRILLATION Status: Chronic Current Visit: No (13) History of pulmonary embolus (PE) SNOMED Code(s): 744025453 Code(s): Z86.711 - PERSONAL HISTORY OF PULMONARY EMBOLISM Status: Chronic Current Visit: No Annotation/Comment:: PE 2004 (14) Chronic anticoagulation SNOMED Code(s): 781455499 Code(s): Z79.01 - BEVEL POLISHER (CURRENT) USE OF ANTICOAGULANTS Status: Chronic Current Visit: No (15) Constipation SNOMED Code(s): 72274072 Code(s): K59.00 - CONSTIPATION, UNSPECIFIED Status: Chronic Current Visit : No Qualifiers: Constipation type: unspecified constipation type Qualified Code(s): K59.00 - Constipation, unspecified (16) Rectal bleeding SNOMED Code(s): 25086759 Code(s): K62.5 - HEMORRHAGE OF ANUS AND RECTUM Status: Acute Current Visit: Yes (17) Gout SNOMED Code(s): 67870169 Code(s): M10.9 - GOUT, UNSPECIFIED Status: Acute Current Visit: No Qualifiers: Gout site: multiple sites Gout etiology: unspecified cause Chronicity: acute Qualified Code(s): M10.9 - Gout, unspecified - Problem List Review Problem List Initiated/Reviewed/Updated: Yes - My Orders Last 24 Hours: My Active Orders 11/29/17 13:46 Vital Signs [RC] ,11/30/17 10:30 Communication Order [RC] ONETIME 12/01/17 10:00 Communication Order [RC] Q7D 12/07/17 05:11 ALANINE AMINOTRANSFERASE,ALT [CHEM] WEEKLY CBC WITH AUTO DIFF [HEME] WEEKLY CREATININE W/GFR [CHEM] WEEKLY 12/14/17 05:11 ALANINE AMINOTRANSFERASE,ALT [CHEM] WEEKLY CBC WITH AUTO DIFF [HEME] WEEKLY CREATININE W/GFR [CHEM] WEEKLY - Assessment Assessment:: 82 yo male admitted on swing bed for IV antibiotics and strengthening after acute hospitalization for endocarditis and nephrolithiasis. Recent issues with gout have improved; possible CHF exacerbation also seems resolved. Other main issue is blood-tinged stools with hemoglobin remaining stable. - Plan Plan:: 82 yo male admitted for IV antibiotics and therapy after acute hospitalization at [facility] for endocarditis and nephrolithiasis with hydronephrosis. Recovering well overall but recovery has now been complicated by a gout flare as well as possible mild CHF exacerbation. He is to be discharged early tomorrow am to [place] for a procedure. #1 Endocarditis of [place] valve #2 Gram positive bacteremia - Patient will be on ceftriaxone and ampicillin through 12/15. - Monitoring labs (CBC, ALT, and creatinine) weekly. These have been stable thus far. - No ID follow-up currently scheduled but he will need to follow-up with them outpatient as well. #3 Renal calculus, left #4 Hydronephrosis, secondary to #3 - S/P nephrostomy tube placement. - Patient to go to [place] tomorrow for stone and nephrostomy removal. - He is high risk for this procedure but is overall stable. He has done fine with anesthesia on multiple occasions over the past few weeks and procedure is strongly indicated to fine to proceed as planned. 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 - As above, he will need ongoing follow-up with ID in the future. #6 Chronic Kidney Disease - Creatinine normalized while hospitalized in [place]. - Will be monitored weekly while on antibiotics. - Will avoid any additional renal stress. #7 Generalized Weakness - Secondary to illnesses and hospitalizations. - PT continues to follow him; OT has signed off. #8 COPD, severe #9 Diastolic Heart Failure #10 Chronic hypoxic respiratory failure - No acute symptoms at this time. Weight is back down over the past couple days. - No further additional lasix doses at this time. - He does not require another echocardiogram pre-op as he has already had multiple in the past few weeks. - Continue home medications and oxygen per home dosing. #11 Severe Mitral Regurgitation with flail mitral valve - Outpatient cardiology follow-up has been scheduled for 01/14. #12 Chronic Atrial Fibrillation #13 History of PE #14 Chronic Anticoagulation - No acute symptoms. - Continue home medications. - Decision was made to hold off on lovenox bridging for the following reasons: patient is having blood-tinged stools, patient's PE history is very remote and he is currently anticoagulated for atrial fibrillation moreso than the PE history, and his INR was still 1.8 on 11/27. - INR checked today and down to 1.1 so ok to go ahead with the procedure as planned tomorrow. - He will need lovenox for VTE prophylaxis until INR is therapeutic again upon return to swing bed. #15 Constipation #16 Rectal Bleeding - Rectal bleeding suspected to be hemorrhoids vs. fissure in the setting of a preceding hard stool last week. - Hgb has remained stable. - Will do rectal exam today when patient laying in bed after lunch. - Further intervention will be deferred until patient has recovered from acute illnesses unless bleeding picks up and/or hemoglobin drops. #17 Gout - Although uric acid level normal, symptoms and response to prednisone certainly consistent with gout. - Will do another 2 days of prednisone 10 mg daily and then stop unless symptoms do not continue to improve. Patient is admitted to swing bed for IV antibiotics and PT. Will be admitted at least through 12/15 and after that depends on therapy course. No VTE prophylaxis as patient is having a procedure tomorrow. He will need VTE prophylaxis with lovenox upon his return until his INR is therapeutic. Code status is DNR/DNI - discussed with patient on admission and consistent with multiple prior hospitalizations and outpatient discussions.
[2017-11-30] MEDS: cefTRIAXone 2 GM Vial IVPUSH SCH ×2 (09:45→20:31)
[2017-11-30] MEDS: predniSONE 10 MG Tab PO SCH (11:15)
--- NOTE | 2017-11-30 13:39 | PCM.DCSUM1 ---
Discharge Summary - Hospital Course Brief History: Mr. Aragon is an 82 yo male who was admitted to [facility] bed for IV antibiotics and strengthening after an acute hospitalization in [place] for endocarditis and nephrolithiasis. 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 SNOMED Code(s): 49801196 ICD Code: I38 - ENDOCARDITIS, VALVE UNSPECIFIED Status: Acute Current Visit: No (2) Gram-positive bacteremia SNOMED Code(s): 263392352335 ICD Code: R78.81 - BACTEREMIA Status: Acute Current Visit: No (3) Renal calculus, left SNOMED Code(s): 04369713 ICD Code: N20.0 - CALCULUS OF KIDNEY Status: Acute Current Visit: No (4) Hydronephrosis SNOMED Code(s): 81765206 ICD Code: N13.30 - UNSPECIFIED HYDRONEPHROSIS Status: Acute Priority: Low Current Visit: No Qualifiers: Hydronephrosis type: with ureteral calculous obstruction Qualified Code(s) : N13.2 - Hydronephrosis with renal and ureteral calculous obstruction (5) Recurrent UTI SNOMED Code(s): 092248934 ICD Code: N39.0 - URINARY TRACT INFECTION, SITE NOT SPECIFIED Status: Chronic Current Visit: No (6) Chronic kidney disease SNOMED Code(s): 778879970 ICD Code: N18.9 - CHRONIC KIDNEY DISEASE, UNSPECIFIED Status: Chronic Current Visit: No Qualifiers: Chronic kidney disease stage: stage 3 (moderate) Qualified Code(s): N18.3 - Chronic kidney disease, stage 3 (moderate) (7) Weakness SNOMED Code(s): 57657573 ICD Code: R53.1 - WEAKNESS Status: Acute Priority: Medium Current Visit : No (8) COPD, severe SNOMED Code(s): 510510849 ICD Code: J44.9 - CHRONIC OBSTRUCTIVE PULMONARY DISEASE, UNSPECIFIED Status : Chronic Current Visit: No (9) Diastolic heart failure SNOMED Code(s): 809091410 ICD Code: I50.30 - UNSPECIFIED DIASTOLIC (CONGESTIVE) HEART FAILURE Status : Chronic Current Visit: No Qualifiers: Heart failure chronicity: chronic Qualified Code(s): I50.32 - Chronic diastolic (congestive) heart failure (10) Chronic respiratory failure with hypoxia SNOMED Code(s): 482408596 ICD Code: J96.11 - CHRONIC RESPIRATORY FAILURE WITH HYPOXIA Status: Chronic Current Visit: No (11) Mitral regurgitation SNOMED Code(s): 81931852 ICD Code: I34.0 - NONRHEUMATIC MITRAL (VALVE) INSUFFICIENCY Status: Chronic Current Visit: No Qualifiers: Cardiac valve disease etiology: nonrheumatic Qualified Code(s): I34.0 - Nonrheumatic mitral (valve) insufficiency (12) Chronic atrial fibrillation SNOMED Code(s): 831686388 ICD Code: I48.2 - CHRONIC ATRIAL FIBRILLATION Status: Chronic Current Visit: No (13) History of pulmonary embolus (PE) SNOMED Code(s): 401367141 ICD Code: Z86.711 - PERSONAL HISTORY OF PULMONARY EMBOLISM Status: Chronic Current Visit: No Problem Details: PE 2004 (14) Chronic anticoagulation SNOMED Code(s): 043125218 ICD Code: Z79.01 - [facility] (CURRENT) USE OF ANTICOAGULANTS Status: Chronic Current Visit: No (15) Constipation SNOMED Code(s): 34609203 ICD Code: K59.00 - CONSTIPATION, UNSPECIFIED Status: Chronic Current Visit: No Qualifiers: Constipation type: unspecified constipation type Qualified Code(s): K59.00 - Constipation, unspecified (16) Rectal bleeding SNOMED Code(s): 28395487 ICD Code: K62.5 - HEMORRHAGE OF ANUS AND RECTUM Status: Acute Current Visit: Yes (17) Gout SNOMED Code(s): 56445328 ICD Code: M10.9 - GOUT, UNSPECIFIED Status: Acute Current Visit: No Qualifiers: Gout site: multiple sites Gout etiology: unspecified cause Chronicity: acute Qualified Code(s): M10.9 - Gout, unspecified - Patient Summary/Data Operative Procedure(s) Performed: none Consults: Consultations 11/13/17 13:46 OT Evaluation and Treatment [CONS] Routine PT Evaluation and Treatment [CONS] Routine Labs Pending at D/C: none Recommended Follow-up Testing/Procedures: none Planned Operative Procedure(s) after DC: none Hospital Course: His IV antibiotics were continued as per orders from Infectious Disease. His labs were monitored weekly and overall stable. Physical and occupational therapy did evaluate him and continued to work with him on strengthening during his hospital stay. His hospitalization was complicated by a recent flare of gout , which was treated with prednisone starting on 11/28. There was also concern for a CHF exacerbation due to a weight gain and he was given an additional dose of IV lasix on 11/28 as well. His weight was already down within the same day, and he was denying any acute symptoms. Swing bed stay further complicated by blood tinged stools but without any changes or drop in hemoglobin. Stay was otherwise uncomplicated and he has been recovering well. Plan is to transfer to [place] for a procedure and then return to [facility] bed once stabilized. - Patient Instructions Diet: NPO - Discharge Plan *PRESCRIPTION DRUG MONITORING PROGRAM REVIEWED*: No *COPY OF PRESCRIPTION DRUG MONITORING REPORT IN PATIENT ALLY: No Home Medications: Home Meds Allopurinol [Zyloprim] 300 mg PO DAILY 09/10/14 [History] Tiotropium [Spiriva HandiHaler] 1 puff PO DAILY@0700 12/24/14 [History] Diltiazem HCl [Cartia Xt] 180 mg PO DAILY 07/04/16 [History] Bisacodyl [Dulcolax] 5 mg PO DAILY PRN 07/07/16 [History] Docusate Sodium/Sennosides [Senna Plus] 1 tab PO BID@0700,1700 07/07/16 [History ] Budesonide/Formoterol [Symbicort 160-4.5 MCG] 2 puff INH BID 09/09/16 [History] Cranberry Extract [Cranberry] 500 mg PO DAILY 09/09/16 [History] Lactobacillus Combination No.4 [Probiotic] 1 cap PO BID@,09/09/16 [History] Lactulose [Generlac] 30 ml PO TID PRN 09/09/16 [History] Multivitamin [Multi-Vitamin Daily] 1 tab PO DAILY 09/09/16 [History] D-Mannose 1 tab PO BID@0700,1700 04/26/17 [History] Furosemide [Lasix] 40 mg PO BID@0700,199904/27/17 [History] Metoprolol Succinate [Toprol XL] 25 mg PO DAILY@199904/27/17 [History] Acetaminophen [Tylenol Extra Strength] 1,000 mg PO Q4H PRN 09/19/17 [History] Albuterol [Proventil HFA] 1 - 2 puff INH Q4H PRN 10/11/17 [History] Albuterol/Ipratropium [DuoNeb 3.0-0.5 MG/3 ML] 3 ml NEB BID 10/11/17 [History] Nystatin [Nystatin Crm] 1 applicful TOP Q3D 10/11/17 [History] Ampicillin 2 gm IV Q4H 11/13/17 [History] Heparin Sodium,Porcine/PF [Heparin 300 Unit/3 ml (100/ml)] 300 unit IV ASDIRECTED 11/13/17 [History] Magnesium Oxide 400 mg PO DAILY 11/13/17 [History] Sodium Chloride 0.9% [Saline Flush] 10 ml FLUSH ASDIRECTED 11/13/17 [History] cefTRIAXone [Rocephin] 2 gm IVPUSH Q12H 11/13/17 [History] traMADol [Ultram] 50 mg PO Q8H PRN tablet 11/30/17 [Rx] - Discharge Summary/Plan Comment DC Time >30 min.: No - General Info Date of Service: 11/30/17 Subjective Update: See progress note from today for full details. - Patient Data Vitals - Most Recent: Last Vital Signs Temp 36.5 C 11/30/17 05:37 Pulse 76 11/30/17 05:37 Resp 21 H 11/30/17 05:37 BP 118/72 11/30/17 05:37 Pulse Ox 95 11/30/17 07:10 Weight - Most Recent: 95.345 kg I&O - Last 24 hours: Intake & Output 11/29/17 11/30/17 11/30/17 22:59 06:59 14:59 Intake Total 565 210 660 Output Total 1250 3200 Balance -143 -5191 660 Lab Results - Last 24 hrs: Laboratory Results - last 24 hr 11/30/17 11/30/17 11/30/17 Range/Units 06:30 06:30 06:30 WBC 10.8 H (4.0-10.0) x10^3/uL RBC 3.98 L (4.5-6.0) x10^6/uL Hgb 13.6 L (14.0-18.0) g/dL Hct 41.4 (40.0-52.0) % MCV 104.0 H (78.0-93.0) fL MCH 34.2 H (26.0-32.0) pg MCHC 32.9 (32.0-36.0) g/dL RDW Coeff of Leyt 13.6 (10.0-15.0) % Plt Count 236 (130-400) x10^3/uL Neut % (Auto) 66.8 (50.0-80.0) % Lymph % (Auto) 22.4 L (25.0-50.0) % Dickenson % (Auto) 10.2 (2.0-11.0) % Eos % (Auto) 0.4 (0.0-4.0) % Baso % (Auto) 0.2 (0.2-1.2) % PT (9.6-11.4) SEC INR (2.0-3.5) Creatinine 1.3 (0.70-1.30) mg/dL Est Cr Clr Drug Dosing 46.49 mL/min Estimated GFR (MDRD) 53 Magnesium 2.2 (1.8-2.4) mg/dL ALT 21 (16-63) U/L 11/30/17 Range/Units 08:38 WBC (4.0-10.0) x10^3/uL RBC (4.5-6.0) x10^6/uL Hgb (14.0-18.0) g/dL Hct (40.0-52.0) % MCV (78.0-93.0) fL MCH (26.0-32.0) pg MCHC (32.0-36.0) g/dL RDW Coeff of Lety (10.0-15.0) % Plt Count (130-400) x10^3/uL Neut % (Auto) (50.0-80.0) % Lymph % (Auto) (25.0-50.0) % Dickenson % (Auto) (2.0-11.0) % Eos % (Auto) (0.0-4.0) % Baso % (Auto) (0.2-1.2) % PT 11.5 H D (9.6-11.4) SEC INR 1.1 L (2.0-3.5) Creatinine (0.70-1.30) mg/dL Est Cr Clr Drug Dosing mL/min Estimated GFR (MDRD) Magnesium (1.8-2.4) mg/dL ALT (16-63) U/L KIERRA Results - Last 24 hrs: Microbiology 11/28/17 15:13 Aerobic Blood Culture - Preliminary Blood - Venous - Lab Draw NO GROWTH AFTER 1 DAY Anaerobic Blood Culture - Preliminary NO GROWTH AFTER 1 DAY 11/28/17 15:03 Aerobic Blood Culture - Preliminary Blood - Venous NO GROWTH AFTER 1 DAY Anaerobic Blood Culture - Preliminary NO GROWTH AFTER 1 DAY Med Orders - Current: Current Medications Acetaminophen (Tylenol Extra Strength) 1,000 mg PO QID PRN PRN Reason: Pain Last Admin: 11/28/17 14:03 Dose: 1,000 mg Albuterol/Ipratropium (Duoneb 3.0-0.5 Mg/3 Ml) 3 ml NEB BIDRT [facility] Last Admin: 11/30/17 07:09 Dose: 3 ml Allopurinol (Zyloprim) 300 mg PO DAILY [facility] Last Admin: 11/30/17 07:48 Dose: 300 mg Alteplase, Recombinant (Cathflo Activase) 2 mg IV ASDIRECTED PRN PRN Reason: OCCLUDED PICC Last Admin: 11/24/17 14:11 Dose: 2 mg Bisacodyl (Dulcolax) 5 mg PO DAILY PRN PRN Reason: Constipation Ceftriaxone Sodium (Rocephin) 2 gm IVPUSH Q12H [facility] Stop: 12/15/17 21:01 Last Admin: 11/30/17 09:45 Dose: 2 gm Diltiazem HCl (Cardizem Cd) 180 mg PO DAILY [facility] Last Admin: 11/30/17 07:48 Dose: 180 mg Furosemide (Lasix) 40 mg PO BID@0700,2000 [facility] Last Admin: 11/30/17 06:03 Dose: 40 mg Heparin Sodium (Porcine) (Heparin Lock Flush 100 Units/Ml) 300 unit FLUSH Q4H [facility] Last Admin: 11/30/17 09:46 Dose: 300 unit Heparin Sodium (Porcine) (Heparin Lock Flush 100 Units/Ml) 300 unit IVPUSH ASDIRECTED PRN PRN Reason: Keep Vein Open Last Admin: 11/30/17 06:45 Dose: 300 unit Ampicillin Sodium 2 gm/ Sodium (Chloride) 100 mls @ 200 mls/hr IV Q4H [facility] Stop: 12/15/17 14:59 Last Admin: 11/30/17 09:46 Dose: 200 mls/hr Lactobacillus Rhamnosus (Culturelle) 1 cap PO BID@0800,1700 [facility] Last Admin: 11/30/17 07:48 Dose: 1 cap Lactulose (Cephulac) 20 gm PO TID PRN PRN Reason: constipation Magnesium Oxide (Magnesium Oxide) 400 mg PO DAILY [facility] Last Admin: 11/30/17 07:48 Dose: 400 mg Metoprolol Succinate (Toprol Xl) 25 mg PO DAILY@2000 [facility] Last Admin: 11/29/17 20:05 Dose: 25 mg Mometasone Furoate/Formoterol Fumar (Dulera 200-5 Mcg) 2 puff IH BID [facility] Last Admin: 11/30/17 07:48 Dose: 2 puff Prednisone (Prednisone) 10 mg PO DAILY [facility] Stop: 12/01/17 08:01 Last Admin: 11/30/17 11:15 Dose: 10 mg Senna/Docusate Sodium (Senna Plus) 1 tab PO BID@0700,1700 [facility] Last Admin: 11/30/17 06:03 Dose: 1 tab Sodium Chloride (Saline Flush) 10 ml FLUSH Q4H [facility] Last Admin: 11/30/17 09:45 Dose: 10 ml Sodium Chloride (Saline Flush) 10 ml IV ASDIRECTED PRN PRN Reason: Keep Vein Open Last Admin: 11/30/17 06:44 Dose: 10 ml Tiotropium [place] (Spiriva Handihaler) 18 mcg INH DAILY@0700 [facility] Last Admin: 11/30/17 06:04 Dose: 18 mcg Tramadol HCl (Ultram) 50 mg PO Q8H PRN PRN Reason: Breakthrough Pain Discontinued Medications Furosemide (Lasix) 40 mg PO ONETIME ONE Stop: 11/29/17 11:59 Last Admin: 11/29/17 11:35 Dose: 40 mg Heparin Sodium (Porcine) (Heparin Lock Flush 100 Units/Ml) 300 unit FLUSH ASDIRECTED [facility] Last Admin: 11/13/17 14:34 Dose: 300 unit Lactobacillus Rhamnosus (Culturelle) 1 cap PO BID@1100,1900 [facility] Last Admin: 11/15/17 12:28 Dose: 1 cap Non-Formulary Medication (Ampicillin) 2 gm IV Q4H [facility] Prednisone (Prednisone) 20 mg PO ONETIME ONE Stop: 11/28/17 17:37 Last Admin: 11/28/17 17:50 Dose: 20 mg Prednisone (Prednisone) 15 mg PO DAILY ONE Stop: 11/29/17 10:01 Last Admin: 11/29/17 11:36 Dose: 15 mg Promethazine HCl/Codeine (Phenergan With Codeine) 5 ml PO QID PRN PRN Reason: Cough Last Admin: 11/19/17 19:54 Dose: 5 ml Sodium Chloride (Saline Flush) 10 ml FLUSH ASDIRECTED [facility] Last Admin: 11/13/17 14:35 Dose: 10 ml Tramadol HCl (Ultram) 50 mg PO Q6H PRN PRN Reason: Breakthrough Pain Last Admin: 11/29/17 08:34 Dose: 50 mg Warfarin Sodium (Coumadin) 1 mg PO DAILY@2000 [facility] Last Admin: 11/15/17 20:18 Dose: 1 mg Warfarin Sodium (Coumadin) 5 mg PO SUTUWETHSA@1700 [facility] Stop: 11/26/17 17:01 Last Admin: 11/26/17 17:35 Dose: 5 mg Warfarin Sodium (Coumadin) 2.5 mg PO MoFr@1700 [facility] Stop: 11/26/17 17:01 Last Admin: 11/23/17 16:41 Dose: 2.5 mg *Q Meaningful Use (DIS) - VTE *Q VTE Anticoagulation Contraindications: Med/TX Not Indicated/Need
[2017-11-30] MEDS: Metoprolol Succinate 25 MG Tab.ER PO SCH (20:28)
[2017-12-01] MEDS: Heparin Sodium 100 Units/ML 3 ML Syringe FLUSH SCH (01:40)
[2017-12-01] MEDS: Ampicillin 2 GM in Sodium Chloride 0.9% 100 ML IV SCH (01:40)
[2017-12-01] MEDS: Sodium Chloride 0.9% 10 ML Syringe FLUSH SCH (01:41)
[2017-12-01 03:50] VITALS: BP 109/66
[2017-12-01] MEDS: Diltiazem 180 MG Cap.CD PO SCH (04:00)
[2017-12-01] MEDS: Formoterol/Mometasone 200-5 MCG 8.8 GM Inhaler IH SCH (04:00)
[2017-12-01] MEDS: predniSONE 10 MG Tab PO SCH (04:00)
[2017-12-01] MEDS: Allopurinol 300 MG Tab PO SCH (04:00)
== END 2017-12-01 04:15 | disposition home or self-care (01) | DRG 306 ==
LOC: VM.MS 12:37
PROVIDERS: ADMIT Family Medicine; ATTEND Family Medicine
DX: I38 Endocarditis, valve unspecified (principal); I50.33 Acute on chronic diastolic (congestive) heart failure; N39.0 Urinary tract infection, site not specified; J96.11 Chronic respiratory failure with hypoxia; I13.0 Hypertensive heart and chronic kidney disease with heart failure and stage 1 through stage 4 chronic kidney disease, or unspecified chronic kidney disease; N13.2 Hydronephrosis with renal and ureteral calculous obstruction; I05.9 Rheumatic mitral valve disease, unspecified; N18.3 Chronic kidney disease, stage 3 (moderate); K59.00 Constipation, unspecified; J44.9 Chronic obstructive pulmonary disease, unspecified; I48.2 Chronic atrial fibrillation; Z66 Do not resuscitate; K59.09 Other constipation; H91.90 Unspecified hearing loss, unspecified ear; H54.7 Unspecified visual loss; M10.9 Gout, unspecified; I11.0 Hypertensive heart disease with heart failure; G31.84 Mild cognitive impairment of uncertain or unknown etiology; Z86.711 Personal history of pulmonary embolism; Z79.01 Long term (current) use of anticoagulants; Z79.899 Other long term (current) drug therapy; Z99.81 Dependence on supplemental oxygen; Z87.891 Personal history of nicotine dependence
CPT/HCPCS: 36415; 71045; 73600-RT; 73620-RT; 80048; 82274; 82565; 82962; 83735; 83880; 84460; 84550; 85025; 85027; 85610; 87040; 94640; 94760; 97110-GO; 97110-GP; 97116-GP; 97161-GP; 97165-GO; 97530-GP; 97535-GO; A9270-GY; J0290; J0696; J1642; J2997; J7050; J7620-GY

== ENCOUNTER 2017-12-04 11:55 | Inpatient (IN) | payer MEDICARE, BC ==
[2017-12-04] MEDS ORDERED: Lactulose Soln 10 GM/15 ML 30 ML UD Cup PO PRN (13:50)
[2017-12-04] MEDS ORDERED: Bisacodyl 5 MG Tab PO PRN (13:50)
[2017-12-04] MEDS ORDERED: Non-Formulary Medication 1 Each (Albuterol [Proventil Hfa] 2 PUFF) INH PRN (13:50)
[2017-12-04] MEDS ORDERED: Albuterol 0.083% 2.5 MG/3 ML Neb Soln NEB PRN (14:00)
[2017-12-04] MEDS ORDERED: AMPICILLIN 2 GM IV SCH (14:00)
--- NOTE | 2017-12-04 14:25 | PCM.HP ---
H&P History of Present Illness - General Date of Service: 12/04/17 Admit Problem/Dx: Admission Diagnosis/Problem Admission Diagnosis/Problem Sepsis Source of Information: Patient History Limitations: Reports: No Limitations - History of Present Illness Initial Comments - Free Text/Narative: Mr. Aragon is an 82 yo male who returns to [facility] after his admission to [place] this week. He had been in [facility] on swing bed for IV antibiotics and PT. He was transferred to [place] to undergo extraction of 3 stones in the left ureter. This procedure was completed successfully on 12/01. His nephrostomy tube was displaced and, thus, replaced on 12/02 without any issues. He did have some hematuria following the procedure but that has since resolved. As a result, he did have some postoperative anemia but this never required transfusion and Hgb has been stable for the past couple of days. His hospitalization was also complicated by delirium, which is not unusual for him with admissions to [place]. He had an extensive work-up for this which was unremarkable. Upon arrival to the floor, he reports that he is feeling well. He is somewhat tired from the trip and is generally weak. He is not in any pain, including in his right foot and ankle. His urine is clear. He is not having any back or abdominal pain. No fever or chills. He has no concerns or questions. His daughter does wonder what would be the best disposition plan for him after he has completed the antibiotics. She is understandably concerned about him returning home independently. - Related Data Allergies/Adverse Reactions: Allergies Allergy/AdvReac Type Severity Reaction Status Date / Time No Known Allergies Allergy Verified 11/13/17 12:00 Home Medications: Home Meds Allopurinol [Zyloprim] 300 mg PO DAILY 09/10/14 [History] Tiotropium [Spiriva HandiHaler] 1 puff PO DAILY@0700 12/24/14 [History] Diltiazem HCl [Cartia Xt] 180 mg PO DAILY 07/04/16 [History] Bisacodyl [Dulcolax] 5 mg PO DAILY PRN 07/07/16 [History] Docusate Sodium/Sennosides [Senna Plus] 1 tab PO BID@0700,1700 07/07/16 [History ] Budesonide/Formoterol [Symbicort 160-4.5 MCG] 2 puff INH BID 09/09/16 [History] Cranberry Extract [Cranberry] 500 mg PO DAILY 09/09/16 [History] Lactobacillus Combination No.4 [Probiotic] 1 cap PO BID@10,10 09/09/16 [History] Lactulose [Generlac] 30 ml PO TID PRN 09/09/16 [History] Multivitamin [Multi-Vitamin Daily] 1 tab PO DAILY 09/09/16 [History] D-Mannose 1 tab PO BID@0700,1700 04/26/17 [History] Furosemide [Lasix] 40 mg PO BID@0700,199904/27/17 [History] Metoprolol Succinate [Toprol XL] 25 mg PO DAILY@199904/27/17 [History] Acetaminophen [Tylenol Extra Strength] 1,000 mg PO Q4H PRN 09/19/17 [History] Albuterol [Proventil HFA] 1 - 2 puff INH Q4H PRN 10/11/17 [History] Albuterol/Ipratropium [DuoNeb 3.0-0.5 MG/3 ML] 3 ml NEB BID 10/11/17 [History] Nystatin [Nystatin Crm] 1 applicful TOP Q3D 10/11/17 [History] Ampicillin 2 gm IV Q4H 11/13/17 [History] Heparin Sodium,Porcine/PF [Heparin 300 Unit/3 ml (100/ml)] 300 unit IV ASDIRECTED 11/13/17 [History] Magnesium Oxide 400 mg PO DAILY 11/13/17 [History] Sodium Chloride 0.9% [Saline Flush] 10 ml FLUSH ASDIRECTED 11/13/17 [History] cefTRIAXone [Rocephin] 2 gm IVPUSH Q12H 11/13/17 [History] Promethazine HCl/Codeine [Prometh-Codein 6.25-10 mg/5 ml] 5 ml PO Q4HR PRN 12/04 [History] Warfarin [Coumadin] 5 mg PO DAILY 12/04/17 [History] Past Medical History HEENT History: Reports: Hard of Hearing, Impaired Vision Cardiovascular History: Reports: Afib, Aneurysm, Heart Failure, High Cholesterol , Hypertension, Pulmonary Hypertension, Other (See Below) Other Cardiovascular History: AAA Respiratory History: Reports: COPD, PE, SOB Other Respiratory History: hypoxia, oxygen dependent Gastrointestinal History: Reports: Chronic Constipation Genitourinary History: Reports: Hydronephrosis, Renal Calculus, UTI, Recurrent Other Genitourinary History: kidney stones Musculoskeletal History: Reports: Gout, Other (See Below) Other Musculoskeletal History: collapsed vertebra, compression fracture of spine Neurological History: Reports: Other (See Below) Other Neuro History: mild cognitive impairment Psychiatric History: Reports: Other (See Below) Other Psychiatric History: adjustment disorder Endocrine/Metabolic History: Reports: None Hematologic History: Reports: Other (See Below) Other Hematologic History: coumadin therapy Immunologic History: Reports: None Oncologic (Cancer) History: Reports: Bladder Dermatologic History: Reports: Other (See Below) Other Dermatologic History: lymphadenopathy - Infectious Disease History Infectious Disease History: Reports: None - Past Surgical History HEENT Surgical History: Reports: Cataract Surgery Other HEENT Surgeries/Procedures: Unspecific Eye surgery Cardiovascular Surgical History: Reports: AAA Repair Other Cardiovascular Surgeries/Procedures: endoluminal aortic stent Respiratory Surgical History: Reports: None GI Surgical History: Reports: Hernia, Inguinal Other GI Surgeries/Procedures: Endoluminal Aortic Stent Male Surgical History: Reports: Cystectomy, Renal Calculus, TURP- Transurethral Resection of Prostate Other Male Surgeries/Procedures: UROSTOMY Dermatological Surgical History: Reports: None Social & Family History - Family History Cardiac: Reports: CAD Respiratory: Reports: None GI: Reports: None : Reports: None OBGYN: Reports: None Musculoskeletal: Reports: Arthritis Neurological: Reports: None Psychiatric: Reports: None Endocrine/Metabolic: Reports: Diabetes, type II Hematologic: Reports: None Immunologic: Reports: None Oncologic: Reports: Bladder, Breast, Colon, Skin - Tobacco Use Smoking Status *Q: Former Smoker Second Hand Smoke Exposure: No - Caffeine Use Caffeine Use: Reports: None - Alcohol Use Alcohol Use in Last Twelve Months: No - Recreational Drug Use Recreational Drug Use: No - Living Situation & Occupation Living situation: Reports: , Alone Occupation: Retired H&P Review of Systems - Review of Systems: Review Of Systems: See Below General: Reports: No Symptoms HEENT: Reports: No Symptoms Pulmonary: Reports: No Symptoms Cardiovascular: Reports: No Symptoms Gastrointestinal: Reports: No Symptoms Genitourinary: Reports: No Symptoms Musculoskeletal: Reports: No Symptoms Skin: Reports: No Symptoms Neurological: Reports: No Symptoms Exam - Exam Exam: See Below - Vital Signs Vital Signs: Last Vital Signs Temp 36.3 C 12/04/17 12:04 Pulse 94 12/04/17 12:04 Resp 20 12/04/17 12:04 BP 135/60 12/04/17 12:04 Pulse Ox 96 12/04/17 12:04 Weight: 99.79 kg - Exam General: Alert, Oriented, Cooperative HEENT: Conjunctiva Clear, Mucosa Moist & [place], Posterior Pharynx Clear, Pupils Equal Neck: Supple, Trachea Midline. 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 SNOMED Code(s): 43852986 ICD Code: I38 - ENDOCARDITIS, VALVE UNSPECIFIED Status: Acute Current Visit: No (2) Gram-positive bacteremia SNOMED Code(s): 447809349608 ICD Code: R78.81 - BACTEREMIA Status: Acute Current Visit: No (3) Renal calculus, left SNOMED Code(s): 35299805 ICD Code: N20.0 - CALCULUS OF KIDNEY Status: Acute Current Visit: No (4) Hydronephrosis SNOMED Code(s): 56170149 ICD Code: N13.30 - UNSPECIFIED HYDRONEPHROSIS Status: Acute Priority: Low Current Visit: No Qualifiers: Hydronephrosis type: with ureteral calculous obstruction Qualified Code(s) : N13.2 - Hydronephrosis with renal and ureteral calculous obstruction (5) Anemia SNOMED Code(s): 387934159 ICD Code: D64.9 - ANEMIA, UNSPECIFIED Status: Acute Current Visit: Yes Qualifiers: Anemia type: unspecified type Qualified Code(s): D64.9 - Anemia, unspecified (6) Recurrent UTI SNOMED Code(s): 240527961 ICD Code: N39.0 - URINARY TRACT INFECTION, SITE NOT SPECIFIED Status: Chronic Current Visit: No (7) Chronic kidney disease SNOMED Code(s): 219976942 ICD Code: N18.9 - CHRONIC KIDNEY DISEASE, UNSPECIFIED Status: Chronic Current Visit: No Qualifiers: Chronic kidney disease stage: stage 3 (moderate) Qualified Code(s): N18.3 - Chronic kidney disease, stage 3 (moderate) (8) Weakness SNOMED Code(s): 80657069 ICD Code: R53.1 - WEAKNESS Status: Acute Priority: Medium Current Visit : No (9) COPD, severe SNOMED Code(s): 856741274 ICD Code: J44.9 - CHRONIC OBSTRUCTIVE PULMONARY DISEASE, UNSPECIFIED Status : Chronic Current Visit: No (10) Diastolic heart failure SNOMED Code(s): 619813026 ICD Code: I50.30 - UNSPECIFIED DIASTOLIC (CONGESTIVE) HEART FAILURE Status : Chronic Current Visit: No Qualifiers: Heart failure chronicity: chronic Qualified Code(s): I50.32 - Chronic diastolic (congestive) heart failure (11) Chronic respiratory failure with hypoxia SNOMED Code(s): 192585212 ICD Code: J96.11 - CHRONIC RESPIRATORY FAILURE WITH HYPOXIA Status: Chronic Current Visit: No (12) Mitral regurgitation SNOMED Code(s): 03344475 ICD Code: I34.0 - NONRHEUMATIC MITRAL (VALVE) INSUFFICIENCY Status: Chronic Current Visit: No Qualifiers: Cardiac valve disease etiology: nonrheumatic Qualified Code(s): I34.0 - Nonrheumatic mitral (valve) insufficiency (13) Chronic atrial fibrillation SNOMED Code(s): 759369675 ICD Code: I48.2 - CHRONIC ATRIAL FIBRILLATION Status: Chronic Current Visit: No (14) History of pulmonary embolus (PE) SNOMED Code(s): 285225810 ICD Code: Z86.711 - PERSONAL HISTORY OF PULMONARY EMBOLISM Status: Chronic Current Visit: No Problem Details: PE 2004 (15) Chronic anticoagulation SNOMED Code(s): 746950708 ICD Code: Z79.01 - [employer] (CURRENT) USE OF ANTICOAGULANTS Status: Chronic Current Visit: No (16) Constipation SNOMED Code(s): 47292932 ICD Code: K59.00 - CONSTIPATION, UNSPECIFIED Status: Chronic Current Visit: No Qualifiers: Constipation type: unspecified constipation type Qualified Code(s): K59.00 - Constipation, unspecified (17) Rectal bleeding SNOMED Code(s): 74764858 ICD Code: K62.5 - HEMORRHAGE OF ANUS AND RECTUM Status: Acute Current Visit: No (18) Gout SNOMED Code(s): 78189066 ICD Code: M10.9 - GOUT, UNSPECIFIED Status: Acute Current Visit: No Qualifiers: Gout site: multiple sites Gout etiology: unspecified cause Chronicity: acute Qualified Code(s): M10.9 - Gout, unspecified Problem List Initiated/Reviewed/Updated: Yes Orders Last 24hrs: Active Orders 24 hr Category Date Time Status Admission Status [Patient Status] [ADT] Routine ADT 12/04/17 11:00 Active Notify Provider Vital Signs [RC] ASDIRECTED Care 12/04/17 13:47 Active Oxygen Therapy [RC] ASDIRECTED Care 12/04/17 12:24 Active Oxygen Therapy [RC] PRN Care 12/04/17 13:47 Active RT Aerosol Therapy [RC] ASDIRECTED Care 12/04/17 14:00 Active Up With Assistance [RC] ASDIRECTED Care 12/04/17 13:47 Active VTE/DVT Education [RC] PER UNIT ROUTINE Care 12/04/17 13:47 Active Vital Signs [RC] Q4H Care 12/04/17 13:47 Active OT Evaluation and Treatment [CONS] Routine Cons 12/04/17 11:00 Active PT Evaluation and Treatment [CONS] Routine Cons 12/04/17 11:00 Active Heart Healthy Diet [DIET] Diet 12/04/17 Dinner Active Regular Diet [DIET] Diet 12/04/17 Lunch Active ALANINE AMINOTRANSFERASE,ALT [CHEM] WEEKLY Lab 12/07/17 05:11 Ordered ALANINE AMINOTRANSFERASE,ALT [CHEM] WEEKLY Lab 12/14/17 05:11 Ordered CBC WITH AUTO DIFF [HEME] WEEKLY Lab 12/07/17 08:00 Ordered CBC WITH AUTO DIFF [HEME] WEEKLY Lab 12/14/17 08:00 Ordered CREATININE W/GFR [CHEM] WEEKLY Lab 12/07/17 05:11 Ordered CREATININE W/GFR [CHEM] WEEKLY Lab 12/14/17 05:11 Ordered CULTURE MRSA SURVEY [RM] Routine Lab 12/04/17 12:40 Received INR,PT,PROTHROMBIN TIME [COAG] Routine Lab 12/07/17 07:00 Ordered Acetaminophen [Tylenol] Med 12/04/17 13:47 Active 650 mg PO Q4H PRN Albuterol [Proventil Neb Soln] Med 12/04/17 14:00 Active 2.5 mg NEB Q4HRRT PRN Albuterol/Ipratropium [DuoNeb 3.0-0.5 MG/3 ML] Med 12/04/17 20:00 Active 3 ml NEB BIDRT Allopurinol [Zyloprim] Med 12/05/17 08:00 Active 300 mg PO DAILY Ampicillin 2 gm Med 12/04/17 16:00 Active Sodium Chloride 0.9% [Normal Saline] 100 ml IV Q4H Bisacodyl [Dulcolax] Med 12/04/17 13:50 Active 5 mg PO DAILY PRN Diltiazem [Cardizem CD] Med 12/05/17 08:00 Active 180 mg PO DAILY Docusate Sodium/Sennosides [Senna Plus] Med 12/04/17 17:00 Active 1 tab PO BID@0700,1700 Furosemide [Lasix] Med 12/04/17 20:00 Active 40 mg PO BID@0700,2000 Heparin Sodium [Heparin Lock Flush 100 Units/ML] Med 12/04/17 16:30 Active 300 unit IVPUSH Q4H Lactobacillus Rhamnosus GG [Culturelle] Med 12/04/17 22:00 Active 1 cap PO BID@1000,2200 Lactulose [Cephulac] Med 12/04/17 13:50 Active 20 gm PO TID PRN Magnesium Oxide Med 12/05/17 08:00 Active 400 mg PO DAILY Metoprolol Succinate [Toprol XL] Med 12/04/17 20:00 Active 25 mg PO DAILY@2000 Mometasone/Formoterol [Dulera 200-5 MCG] Med 12/04/17 20:00 Active 2 puff IH BIDRT Sodium Chloride 0.9% [Saline Flush] Med 12/04/17 14:05 Active 10 ml FLUSH ASDIRECTED PRN Sodium Chloride 0.9% [Saline Flush] Med 12/04/17 16:30 Active 10 ml FLUSH Q4H Tiotropium [Spiriva HandiHaler] Med 12/05/17 07:00 Active 18 mcg INH DAILY@0700 Warfarin [Coumadin] Med 12/05/17 17:00 Active 5 mg PO DAILY@1700 cefTRIAXone [Rocephin] Med 12/04/17 20:00 Active 2 gm IVPUSH Q12H Anticoagulation Contraindications VTE [AST] Per Unit Oth 12/04/17 13:47 Ordered Routine Resuscitation Status Routine Resus Stat 12/04/17 13:47 Ordered Medication Orders Acetaminophen (Tylenol) 650 mg PO Q4H PRN PRN Reason: Pain (Mild 1-3)/fever Albuterol (Proventil Neb Soln) 2.5 mg NEB Q4HRRT PRN PRN Reason: Shortness of Breath Albuterol/Ipratropium (Duoneb 3.0-0.5 Mg/3 Ml) 3 ml NEB BIDRT [facility] Allopurinol (Zyloprim) 300 mg PO DAILY [facility] Bisacodyl (Dulcolax) 5 mg PO DAILY PRN PRN Reason: Constipation Ceftriaxone Sodium (Rocephin) 2 gm IVPUSH Q12H [facility] Diltiazem HCl (Cardizem Cd) 180 mg PO DAILY [facility] Furosemide (Lasix) 40 mg PO BID@0700,1999 [facility] Heparin Sodium (Porcine) (Heparin Lock Flush 100 Units/Ml) 300 unit IVPUSH Q4H [facility] Ampicillin Sodium 2 gm/ Sodium (Chloride) 100 mls @ 200 mls/hr IV Q4H [facility] Lactobacillus Rhamnosus (Culturelle) 1 cap PO BID@1000,2200 [facility] Lactulose (Cephulac) 20 gm PO TID PRN PRN Reason: Constipation Magnesium Oxide (Magnesium Oxide) 400 mg PO DAILY [facility] Metoprolol Succinate (Toprol Xl) 25 mg PO DAILY@1999 [facility] Mometasone Furoate/Formoterol Fumar (Dulera 200-5 Mcg) 2 puff IH BIDRT [facility] Senna/Docusate Sodium (Senna Plus) 1 tab PO BID@0700,1700 [facility] Sodium Chloride (Saline Flush) 10 ml FLUSH Q4H [facility] Sodium Chloride (Saline Flush) 10 ml FLUSH ASDIRECTED PRN PRN Reason: Keep Vein Open Tiotropium [place] (Spiriva Handihaler) 18 mcg INH DAILY@0700 [facility] Warfarin Sodium (Coumadin) 5 mg PO DAILY@1700 [facility] Assessment/Plan Comment:: 82 yo male who returns to swing bed for IV antibiotics and strengthening after he had returned to [place] for a procedure and has been stabilized. 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 End date 12/15. - Weekly CBC, ALT, and creatinine while on antibiotics. - He will need outpatient ID follow-up upon dismissal. #3 Renal calculus, left #4 Hydronephrosis, secondary to #3 #5 Postoperative anemia - S/P left percutaneous nephrolithotomy on 12/01 and nephrostomy tube replacement on 12/02. - IR and urology follow-ups are scheduled. - Hgb did drop after the procedure but then stabilized. Urine is now clear but he had been having hematuria. - He will have a Hgb checked with monitoring labs on Thursday. #6 Recurrent UTI - No acute symptoms. Patient is well covered with above antibiotics. - Planning ID follow-up as an outpatient. #7 Chronic Kidney Disease - Creatinine has remained stable. - Is monitored weekly while on antibiotics. #8 Generalized Weakness - PT and OT consults. - Discussed with his daughter that we may certainly need to consider a different living situation (i.e. SNF or assisted living) depending on how he is doing at the time of antibiotic completion. - Will reassess and discuss further at that time. #9 COPD, severe #10 Diastolic Heart Failure #11 Chronic hypoxic respiratory failure - No acute symptoms. - Continue home medications and oxygen. #12 Severe Mitral Regurgitation with flail mitral valve - Outpatient cardiology follow-up has been scheduled for 01/14. #13 Chronic Atrial Fibrillation #14 History of PE #15 Chronic Anticoagulation - No acute symptoms; vitals stable. - Warfarin to be resumed tomorrow at 5 mg daily per hospital d/c summary. - INR recheck on Thursday. - Certainly should consider bridging based on h/o PE but this is remote and in and of itself would not be requiring him to be anticoagulated. It was also not recommended by his surgical team related to his postoperative hematuria and drop in hemoglobin. Thus, will not do any lovenox bridging. He will resume warfarin alone tomorrow. #16 Constipation #17 Rectal Bleeding - Rectal bleeding seems to have resolved. Will monitor closely. - Continue home bowel regimen. #18 Gout - Recent flare seems to be resolved. - Continue allopurinol. Patient admitted to swing bed for continuation of IV antibiotics and PT. Will be admitted through 12/15 and possibly longer depending on therapy course. Will discuss at that time whether a different disposition than home independently is warranted for him. Resume warfarin tomorrow - no other VTE prophylaxis as explained above. Code status is DNR/DNI - reviewed with patient on admission and consistent with previously discussed/documented wishes.
[2017-12-04] MEDS: Ampicillin 2 GM in Sodium Chloride 0.9% 100 ML IV SCH ×2 (16:11→20:06)
[2017-12-04] MEDS: Sodium Chloride 0.9% 10 ML Syringe FLUSH SCH ×2 (16:12→20:27)
[2017-12-04] MEDS: Heparin Sodium 100 Units/ML 3 ML Syringe IVPUSH SCH ×2 (16:12→20:26)
[2017-12-04] MEDS: Albuterol/Ipratropium 3.0-0.5 MG/3 ML Neb Soln NEB SCH (20:04)
[2017-12-04] MEDS: Metoprolol Succinate 25 MG Tab.ER PO SCH (20:06)
[2017-12-04] MEDS: Furosemide 40 MG Tab PO SCH (20:06)
[2017-12-04] MEDS: cefTRIAXone 2 GM Vial IVPUSH SCH (20:07)
[2017-12-04] MEDS: Formoterol/Mometasone 200-5 MCG 8.8 GM Inhaler IH SCH (20:21)
[2017-12-04] MEDS: Lactobacillus Rhamnosus GG (Probiotic) Cap PO SCH (21:08)
[2017-12-04] MEDS ORDERED: Lactobacillus Rhamnosus GG (Probiotic) Cap PO SCH (22:00)
[2017-12-05] MEDS: Ampicillin 2 GM in Sodium Chloride 0.9% 100 ML IV SCH ×6 (00:14→20:11)
[2017-12-05] MEDS: Heparin Sodium 100 Units/ML 3 ML Syringe IVPUSH SCH ×7 (00:15→20:12)
[2017-12-05] MEDS: Sodium Chloride 0.9% 10 ML Syringe FLUSH SCH ×6 (00:16→20:12)
[2017-12-05] MEDS: Furosemide 40 MG Tab PO SCH (07:01)
[2017-12-05] MEDS: Albuterol/Ipratropium 3.0-0.5 MG/3 ML Neb Soln NEB SCH ×2 (07:05→20:12)
[2017-12-05] MEDS: Formoterol/Mometasone 200-5 MCG 8.8 GM Inhaler IH SCH ×2 (07:58→20:11)
[2017-12-05] MEDS: Tiotropium Inhaler 18 MCG Inhalation Powder Cap Kit of 5 INH SCH (07:58)
[2017-12-05] MEDS: Magnesium Oxide 400 MG Tab PO SCH (07:59)
[2017-12-05] MEDS: Diltiazem 180 MG Cap.CD PO SCH (07:59)
[2017-12-05] MEDS: cefTRIAXone 2 GM Vial IVPUSH SCH ×2 (07:59→20:10)
[2017-12-05] MEDS: Allopurinol 300 MG Tab PO SCH (07:59)
[2017-12-05] MEDS: Lactobacillus Rhamnosus GG (Probiotic) Cap PO SCH ×2 (09:09→21:04)
[2017-12-05] MEDS: Acetaminophen 325 MG Tab PO PRN (09:11)
[2017-12-05] MEDS ORDERED: Dextrose 5%-0.9% NaCl 1,000 ML IV SCH (16:30)
[2017-12-05] MEDS: Warfarin 5 MG Tab PO SCH (16:43)
[2017-12-05 17:37] LABS: ANION GAP 8.7 mmol/L (10-20)
[2017-12-05] MEDS: Metoprolol Succinate 25 MG Tab.ER PO SCH (20:12)
--- NOTE | 2017-12-05 21:01 | PCM.SN ---
- Free Text/Narrative Note: 1.Nurse noted bleeding from nephrostomy site. t reports having bumped it yesterday OBJ: No bleed from tube, small amount of blood coming from puncture site with old bruising posteriorly IMP Perioperative site bleeding, small amount- pt on anticoagulant- will apply pressure 2. Pt noted to be intermittently confuse- pt has not been drinking well- cr up to 1.6. will hold lasxi and give a small amount of iv fluid overnight and observe
[2017-12-06] MEDS: Sodium Chloride 0.9% 10 ML Syringe FLUSH SCH ×6 (00:19→21:07)
[2017-12-06] MEDS: Heparin Sodium 100 Units/ML 3 ML Syringe IVPUSH SCH ×6 (00:20→21:58)
[2017-12-06] MEDS: Ampicillin 2 GM in Sodium Chloride 0.9% 100 ML IV SCH ×6 (00:20→21:09)
[2017-12-06] MEDS: Tiotropium Inhaler 18 MCG Inhalation Powder Cap Kit of 5 INH SCH (06:56)
[2017-12-06] MEDS: Formoterol/Mometasone 200-5 MCG 8.8 GM Inhaler IH SCH ×2 (06:56→21:21)
[2017-12-06] MEDS: Albuterol/Ipratropium 3.0-0.5 MG/3 ML Neb Soln NEB SCH ×2 (07:28→21:08)
[2017-12-06] MEDS: cefTRIAXone 2 GM Vial IVPUSH SCH ×2 (07:41→21:08)
[2017-12-06] MEDS: Magnesium Oxide 400 MG Tab PO SCH (07:50)
[2017-12-06] MEDS: Allopurinol 300 MG Tab PO SCH (07:50)
[2017-12-06] MEDS: Diltiazem 180 MG Cap.CD PO SCH (07:51)
[2017-12-06] MEDS: Lactobacillus Rhamnosus GG (Probiotic) Cap PO SCH ×2 (09:50→21:24)
[2017-12-06] MEDS ORDERED: Dextrose 5%-0.9% NaCl 1,000 ML IV SCH (10:45)
--- NOTE | 2017-12-06 10:49 | PCM.PN ---
- General Info Date of Service: 12/06/17 Admission Dx/Problem (Free Text): 1.Confusion: pt was noted to have intermittent confusion.He has not been taking po as well as usual and lasix was held yesterday, he was given a liter of fluid. Pt is somehwat better today but still sometimes confused OBJ; Lungs :clear Plan :contnie I more liter D5NS, hol dlasi another 24hr 2. Bleeding: pt contunes ot have bleeding under the skin and now also from ileal conduit. Pt's BP ranges from 110-136 systolic with pulse in the 66-80 range; hb 10.5 which is unchanged from San[place] dishcarge OBK: Pt has eccymosis that now extends into flank and abdomon, no frnak bleeidn seen at puncture cherelle; reddish urine in ileal conduit bag - Patient Data Vitals - Most Recent: Last Vital Signs Temp 97.9 F 12/06/17 10:00 Pulse 90 12/06/17 10:00 Resp 18 12/06/17 10:00 BP 110/70 12/06/17 10:00 Pulse Ox 95 12/06/17 07:28 Weight - Most Recent: 219 lb 8.581 oz I&O - Last 24 Hours: Intake & Output 12/05/17 12/06/17 12/06/17 22:59 06:59 14:59 Intake Total 1030 1766 660 Output Total 450 1000 Balance 580 766 660 Lab Results Last 24 Hours: Laboratory Results - last 24 hr 12/05/17 12/06/17 12/06/17 Range/Units 17:12 07:28 07:28 Hgb 10.5 L D (14.0-18.0) g/dL PT 10.7 (9.6-11.4) SEC INR 1.0 L (2.0-3.5) Sodium 139 (136-145) mmol/L Potassium 3.7 (3.5-5.1) mmol/L Chloride 101 (98-107) mmol/L Carbon Dioxide 33 H (21-32) mmol/L Anion Gap 8.7 L (10-20) mmol/L BUN 34 H (7-18) mg/dL Creatinine 1.6 H (0.70-1.30) mg/dL Est Cr Clr Drug Dosing 37.72 mL/min Estimated GFR (MDRD) 41 Glucose 103 (74-106) mg/dL Calcium 8.9 (8.5-10.1) mg/dL Joce Results Last 24 Hours: Microbiology 12/04/17 12:40 MRSA Surveillance Culture - Final Nares, Unspecified NO MRSA ISOLATED Med Orders - Current: Current Medications Acetaminophen (Tylenol) 650 mg PO Q4H PRN PRN Reason: Pain (Mild 1-3)/fever Last Admin: 12/05/17 09:11 Dose: 650 mg Albuterol (Proventil Neb Soln) 2.5 mg NEB Q4HRRT PRN PRN Reason: Shortness of Breath Albuterol/Ipratropium (Duoneb 3.0-0.5 Mg/3 Ml) 3 ml NEB BIDRT [facility] Last Admin: 12/06/17 07:28 Dose: 3 ml Allopurinol (Zyloprim) 300 mg PO DAILY [facility] Last Admin: 12/06/17 07:50 Dose: 300 mg Bisacodyl (Dulcolax) 5 mg PO DAILY PRN PRN Reason: Constipation Ceftriaxone Sodium (Rocephin) 2 gm IVPUSH Q12H [facility] Last Admin: 12/06/17 07:41 Dose: 2 gm Diltiazem HCl (Cardizem Cd) 180 mg PO DAILY [facility] Last Admin: 12/06/17 07:51 Dose: 180 mg Furosemide (Lasix) 40 mg PO BID@0700,1999 [facility] Last Admin: 12/05/17 07:01 Dose: 40 mg Heparin Sodium (Porcine) (Heparin Lock Flush 100 Units/Ml) 300 unit IVPUSH Q4H [facility] Last Admin: 12/06/17 07:52 Dose: 300 unit Ampicillin Sodium 2 gm/ Sodium (Chloride) 100 mls @ 200 mls/hr IV Q4H [facility] Last Admin: 12/06/17 07:49 Dose: 200 mls/hr Dextrose/Sodium Chloride (Dextrose 5%-Normal Saline) 1,000 mls @ 83 mls/hr IV ASDIRECTED [facility] Last Admin: 12/05/17 17:30 Dose: 83 mls/hr Dextrose/Sodium Chloride (Dextrose 5%-Normal Saline) 1,000 mls @ 83 mls/hr IV ASDIRECTED [facility] Stop: 12/06/17 22:48 Lactobacillus Rhamnosus (Culturelle) 1 cap PO BID@0900,2100 [facility] Last Admin: 12/06/17 09:50 Dose: 1 cap Lactulose (Cephulac) 20 gm PO TID PRN PRN Reason: Constipation Magnesium Oxide (Magnesium Oxide) 400 mg PO DAILY [facility] Last Admin: 12/06/17 07:50 Dose: 400 mg Metoprolol Succinate (Toprol Xl) 25 mg PO DAILY@2000 [facility] Last Admin: 12/05/17 20:12 Dose: 25 mg Mometasone Furoate/Formoterol Fumar (Dulera 200-5 Mcg) 2 puff IH BIDRT [facility] Last Admin: 12/06/17 06:56 Dose: 2 puff Senna/Docusate Sodium (Senna Plus) 1 tab PO BID@0700,1700 [facility] Last Admin: 12/06/17 06:56 Dose: 1 tab Sodium Chloride (Saline Flush) 10 ml FLUSH Q4H [facility] Last Admin: 12/06/17 07:52 Dose: 10 ml Sodium Chloride (Saline Flush) 10 ml FLUSH ASDIRECTED PRN PRN Reason: Keep Vein Open Tiotropium [place] (Spiriva Handihaler) 18 mcg INH DAILY@0700 [facility] Last Admin: 12/06/17 06:56 Dose: 18 mcg Warfarin Sodium (Coumadin) 5 mg PO DAILY@1700 [facility] Last Admin: 12/05/17 16:43 Dose: 5 mg Discontinued Medications Lactobacillus Rhamnosus (Culturelle) 1 cap PO BID@1000,2200 [facility] - Exam Lungs: Clear to Auscultation Skin: Other (ecchymosis left back to flank) - Problem List & Annotations (1) Renal calculus SNOMED Code(s): 40859231 Code(s): N20.0 - CALCULUS OF KIDNEY Status: Chronic Current Visit: Yes Annotation/Comment:: discussed bleeding with Dr Dueñas, he suggested flushing Nephrostomy tube with 10cc ns to try to dislodge clot that was seen at time of intervention . If bleeding persist, Cntrat neg Ct would be done next. Will hold Warfarin today, flush tube, observe vs carefully, monitor hb (2) Confusion SNOMED Code(s): 821539730 Code(s): R41.0 - DISORIENTATION, UNSPECIFIED Status: Acute Current Visit : Yes Annotation/Comment:: As pt responded to IV fluids, will hold lasix another 24 hours and give another liter IV - Problem List Review Problem List Initiated/Reviewed/Updated: Yes - My Orders Last 24 Hours: My Active Orders 12/05/17 16:30 Dextrose 5%-0.9% NaCl [Dextrose 5%-Normal Saline] 1,000 ml IV ASDIRECTED 12/06/17 10:45 Dextrose 5%-0.9% NaCl [Dextrose 5%-Normal Saline] 1,000 ml IV ASDIRECTED - Plan Plan:: 82 yo male who returns to swing bed for IV antibiotics and strengthening after he had returned to [place] for a procedure and has been stabilized. #1 Endocarditis of yurok valve #2 Gram positive bacteremia - Continue ceftriaxone and ampicillin per previous dosing. End date 12/15. - Weekly CBC, ALT, and creatinine while on antibiotics. - He will need outpatient ID follow-up upon dismissal. #3 Renal calculus, left #4 Hydronephrosis, secondary to #3 #5 Postoperative anemia - S/P left percutaneous nephrolithotomy on 12/01 and nephrostomy tube replacement on 12/02. - IR and urology follow-ups are scheduled. - Hgb did drop after the procedure but then stabilized. Urine is now clear but he had been having hematuria. - He will have a Hgb checked with monitoring labs on Thursday. #6 Recurrent UTI - No acute symptoms. Patient is well covered with above antibiotics. - Planning ID follow-up as an outpatient. #7 Chronic Kidney Disease - Creatinine has remained stable. - Is monitored weekly while on antibiotics. #8 Generalized Weakness - PT and OT consults. - Discussed with his daughter that we may certainly need to consider a different living situation (i.e. SNF or assisted living) depending on how he is doing at the time of antibiotic completion. - Will reassess and discuss further at that time. #9 COPD, severe #10 Diastolic Heart Failure #11 Chronic hypoxic respiratory failure - No acute symptoms. - Continue home medications and oxygen. #12 Severe Mitral Regurgitation with flail mitral valve - Outpatient cardiology follow-up has been scheduled for 01/14. #13 Chronic Atrial Fibrillation #14 History of PE #15 Chronic Anticoagulation - No acute symptoms; vitals stable. - Warfarin to be resumed tomorrow at 5 mg daily per hospital d/c summary. - INR recheck on Thursday. - Certainly should consider bridging based on h/o PE but this is remote and in and of itself would not be requiring him to be anticoagulated. It was also not recommended by his surgical team related to his postoperative hematuria and drop in hemoglobin. Thus, will not do any lovenox bridging. He will resume warfarin alone tomorrow. #16 Constipation #17 Rectal Bleeding - Rectal bleeding seems to have resolved. Will monitor closely. - Continue home bowel regimen. #18 Gout - Recent flare seems to be resolved. - Continue allopurinol. Patient admitted to swing bed for continuation of IV antibiotics and PT. Will be admitted through 12/15 and possibly longer depending on therapy course. Will discuss at that time whether a different disposition than home independently is warranted for him. Resume warfarin tomorrow - no other VTE prophylaxis as explained above. Code status is DNR/DNI - reviewed with patient on admission and consistent with previously discussed/documented wishes.
[2017-12-06] MEDS: Furosemide 40 MG Tab PO SCH (21:09)
[2017-12-06] MEDS: Metoprolol Succinate 25 MG Tab.ER PO SCH (21:56)
[2017-12-07] MEDS: Ampicillin 2 GM in Sodium Chloride 0.9% 100 ML IV SCH ×6 (00:13→19:58)
[2017-12-07] MEDS: Heparin Sodium 100 Units/ML 3 ML Syringe IVPUSH SCH ×7 (01:06→20:40)
[2017-12-07] MEDS: Sodium Chloride 0.9% 10 ML Syringe FLUSH SCH ×6 (01:06→20:40)
[2017-12-07] MEDS: Sodium Chloride 0.9% 10 ML Syringe FLUSH PRN (06:34)
[2017-12-07] MEDS: Formoterol/Mometasone 200-5 MCG 8.8 GM Inhaler IH SCH ×2 (06:38→20:16)
[2017-12-07] MEDS: Albuterol/Ipratropium 3.0-0.5 MG/3 ML Neb Soln NEB SCH ×2 (07:03→19:52)
[2017-12-07] MEDS: Lactobacillus Rhamnosus GG (Probiotic) Cap PO SCH ×2 (08:25→20:41)
[2017-12-07] MEDS: Diltiazem 180 MG Cap.CD PO SCH (08:25)
[2017-12-07] MEDS: Tiotropium Inhaler 18 MCG Inhalation Powder Cap Kit of 5 INH SCH (08:25)
[2017-12-07] MEDS: Magnesium Oxide 400 MG Tab PO SCH (08:25)
[2017-12-07] MEDS: Allopurinol 300 MG Tab PO SCH (08:25)
[2017-12-07] MEDS: cefTRIAXone 2 GM Vial IVPUSH SCH ×2 (08:26→19:53)
--- NOTE | 2017-12-07 08:33 | PCM.SN ---
- Free Text/Narrative Note: S: Patient had issues with bleeding over the weekend. Continues with drainage of pink-tinged urine into his catheter bag. No ongoing bleeding from the nephrostomy tube site on his left flank. He denies any pain. He is frustrated that he is paying for his apartment while he is staying in the hospital. He is frustrated that he had some trouble this weekend. Other than being in worse spirits this morning, he states he is feeling ok. He denies any increase in weakness and has had no increase in his chronis shortness of breath or cough. No fever. O: Sitting up to the chair in no acute distress. Urine draining into his catheter bag remains pink tinged. Developing ecchymosis left flank without any active bleeding from the nephrostomy tube site. Mucous membranes moist. Heart irregular with normal rate; stable murmur. No pedal edema. Lungs CTAB. Abdomen soft, nontender, nondistended. Skin warm and dry. A/P #1 Postoperative Bleeding #2 Postoperative Anemia - Hgb has been stable despite recurrence of his hematuria. - Vitals also remain stable. - Will recheck Hgb again tomorrow am. - If hematuria continues over the course of the next 24-48 hours, then will need to touch base with urology and IR again for further recommendations. #3 Chronic Anticoagulation - Given ongoing bleeding, warfarin will continue to be held. - As above, will plan to touch base with specialists if not resolving in the short term. - Consider prophylaxis with heparin but actually resuming warfarin will take longer to become therapeutic so would be a safer route to go. Larisa Ellsworth MD
--- NOTE | 2017-12-07 09:39 | PCM.SN ---
- Free Text/Narrative Note: Add to note of 12/06. As the nephrostomy tube flushed easily w/o clots,CT kidney was done showing a large left subcapsular hematoma( verbal stat reading)/ Film was sent to Mary who concurred and felt the tube is bleeding because of positional change, causing the tube to cross the clot. He feels this may very well tamponade and not need intervention at this point. If there is nabeel blood from iliial conduit with clots or drop in Hb, reconsult is necessary, there may be blood tinged urine for 7-10 days. f/up studies would be CT w/o contrast again This information shared with nursing staff, attending and pt's daughter on 12/06/2017.
[2017-12-07] MEDS: Cyanocobalamin (Vitamin B12) 1,000 MCG Tab PO SCH (12:21)
[2017-12-07] MEDS: Acetaminophen 325 MG Tab PO PRN (14:26)
--- NOTE | 2017-12-07 15:53 | PCM.SN ---
- Free Text/Narrative Note: S: Called by nursing as patient sustained a fall this afternoon. He was attempting to ambulate on his own in his room when he "got tripped up" and fell. He states that he did hit his head and has started to develop a headache. No nausea or vomiting. No weakness, numbness, or tingling. He denies any neck pain. He denies any other injuries. Nursing staff note that he continues to be confused today and told them he was going to talk to his when he fell. His is and has been for many years. His ileostomy output remains cranberry colored and is slightly more dark than previous. O: Patient is resting in bed in no acute distress. All 4 extremities, chest, and abdomen palpated and nontender. Head is normocephalic and atraumatic. He does have midline neck tenderness to palpation. Able to move all 4 extremities equally. CN 2-12 grossly intact. A/P: #1 Fall with Injury - As he hit his head when he fell, will proceed with head CT. - Given midline neck pain, cervical spine CT will also be done. - Update Hgb as well given change in urine appearance and confusion throughout the day today. - C-collar to be in place until c-spine CT results available. - No other apparent injury but patient will be checked on again tomorrow. Addendum: CT's negative for acute findings. Collar will be removed. Hgb stable. Will reassess patient tomorrow.
[2017-12-07] MEDS: Warfarin 5 MG Tab PO SCH ×2 (16:31→17:09)
[2017-12-07] MEDS: Metoprolol Succinate 25 MG Tab.ER PO SCH (20:15)
[2017-12-08] MEDS: Ampicillin 2 GM in Sodium Chloride 0.9% 100 ML IV SCH ×6 (00:13→19:55)
[2017-12-08] MEDS: Sodium Chloride 0.9% 10 ML Syringe FLUSH SCH ×6 (00:49→20:36)
[2017-12-08] MEDS: Heparin Sodium 100 Units/ML 3 ML Syringe IVPUSH SCH ×7 (00:49→20:36)
[2017-12-08] MEDS: Formoterol/Mometasone 200-5 MCG 8.8 GM Inhaler IH SCH ×2 (06:20→19:59)
[2017-12-08] MEDS: Furosemide 40 MG Tab PO SCH ×2 (06:26→19:59)
[2017-12-08] MEDS: Tiotropium Inhaler 18 MCG Inhalation Powder Cap Kit of 5 INH SCH (06:28)
[2017-12-08] MEDS: Albuterol/Ipratropium 3.0-0.5 MG/3 ML Neb Soln NEB SCH ×2 (07:22→19:45)
[2017-12-08] MEDS: cefTRIAXone 2 GM Vial IVPUSH SCH ×2 (07:30→19:51)
[2017-12-08] MEDS: Allopurinol 300 MG Tab PO SCH (07:31)
[2017-12-08] MEDS: Magnesium Oxide 400 MG Tab PO SCH (07:31)
[2017-12-08] MEDS: Cyanocobalamin (Vitamin B12) 1,000 MCG Tab PO SCH (07:31)
[2017-12-08] MEDS: Diltiazem 180 MG Cap.CD PO SCH (07:31)
[2017-12-08] MEDS: Acetaminophen 325 MG Tab PO PRN (07:33)
[2017-12-08] MEDS: Lactobacillus Rhamnosus GG (Probiotic) Cap PO SCH ×2 (09:53→20:36)
--- NOTE | 2017-12-08 12:36 | PCM.SN ---
- Free Text/Narrative Note: Patient confused but no change from the past few days. 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 No bleeding from the nephrostomy tube site. No headaches or focal neurologic symptoms. Has had a work-up for his delirium already - likely hospital related. Reviewed with pharmacy and will not start warfarin at this time as risks outweigh the benefits when he is actively bleeding and is only on the warfarin for atrial fibrillation (remote history of single PE does not warrant lifelong anticoagulation). Will check on him tomorrow, sooner if need be.
[2017-12-08] MEDS: Metoprolol Succinate 25 MG Tab.ER PO SCH (20:05)
[2017-12-09] MEDS: Ampicillin 2 GM in Sodium Chloride 0.9% 100 ML IV SCH ×4 (00:03→11:48)
[2017-12-09] MEDS: Heparin Sodium 100 Units/ML 3 ML Syringe IVPUSH SCH ×4 (00:40→11:48)
[2017-12-09] MEDS: Sodium Chloride 0.9% 10 ML Syringe FLUSH SCH ×4 (00:40→11:48)
[2017-12-09 06:40] VITALS: BP 119/71
[2017-12-09] MEDS: Furosemide 40 MG Tab PO SCH (06:58)
[2017-12-09] MEDS: Formoterol/Mometasone 200-5 MCG 8.8 GM Inhaler IH SCH (06:58)
[2017-12-09] MEDS: Tiotropium Inhaler 18 MCG Inhalation Powder Cap Kit of 5 INH SCH (06:58)
[2017-12-09] MEDS: Albuterol/Ipratropium 3.0-0.5 MG/3 ML Neb Soln NEB SCH (07:18)
[2017-12-09] MEDS: cefTRIAXone 2 GM Vial IVPUSH SCH (08:25)
[2017-12-09] MEDS: Allopurinol 300 MG Tab PO SCH (08:26)
[2017-12-09] MEDS: Diltiazem 180 MG Cap.CD PO SCH (08:26)
[2017-12-09] MEDS: Cyanocobalamin (Vitamin B12) 1,000 MCG Tab PO SCH (08:26)
[2017-12-09] MEDS: Magnesium Oxide 400 MG Tab PO SCH (08:26)
[2017-12-09] MEDS: Lactobacillus Rhamnosus GG (Probiotic) Cap PO SCH (08:26)
[2017-12-09] MEDS: Sodium Chloride 0.9% 10 ML Syringe FLUSH PRN (10:54)
[2017-12-09 11:25] LABS: ANION GAP 12.6 mmol/L (10-20)
--- NOTE | 2017-12-09 12:19 | PCM.DCSUM1 ---
Discharge Summary - Hospital Course Brief History: Mr. Aragon is an 82 yo male who was admitted back to [facility] swing bed after he had temporarily transferred to [place] for left ureteral stone extraction and replacement of left nephrostomy tube. 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 SNOMED Code(s): 03657880 ICD Code: I38 - ENDOCARDITIS, VALVE UNSPECIFIED Status: Acute Current Visit: No (4) Gram-positive bacteremia SNOMED Code(s): 240809547915 ICD Code: R78.81 - BACTEREMIA Status: Acute Current Visit: No (5) Renal calculus, left SNOMED Code(s): 08546296 ICD Code: N20.0 - CALCULUS OF KIDNEY Status: Acute Current Visit: No (6) Hydronephrosis SNOMED Code(s): 44431547 ICD Code: N13.30 - UNSPECIFIED HYDRONEPHROSIS Status: Acute Priority: Low Current Visit: No Qualifiers: Hydronephrosis type: with ureteral calculous obstruction Qualified Code(s) : N13.2 - Hydronephrosis with renal and ureteral calculous obstruction (7) Anemia SNOMED Code(s): 378431294 ICD Code: D64.9 - ANEMIA, UNSPECIFIED Status: Acute Current Visit: Yes Qualifiers: Anemia type: unspecified type Qualified Code(s): D64.9 - Anemia, unspecified (8) Recurrent UTI SNOMED Code(s): 113421817 ICD Code: N39.0 - URINARY TRACT INFECTION, SITE NOT SPECIFIED Status: Chronic Current Visit: No (9) Chronic kidney disease SNOMED Code(s): 534121675 ICD Code: N18.9 - CHRONIC KIDNEY DISEASE, UNSPECIFIED Status: Chronic Current Visit: No Qualifiers: Chronic kidney disease stage: stage 3 (moderate) Qualified Code(s): N18.3 - Chronic kidney disease, stage 3 (moderate) (10) Weakness SNOMED Code(s): 72403508 ICD Code: R53.1 - WEAKNESS Status: Acute Priority: Medium Current Visit : No (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, severe SNOMED Code(s): 658936295 ICD Code: J44.9 - CHRONIC OBSTRUCTIVE PULMONARY DISEASE, UNSPECIFIED Status : Chronic Current Visit: No (12) Diastolic heart failure SNOMED Code(s): 971056591 ICD Code: I50.30 - UNSPECIFIED DIASTOLIC (CONGESTIVE) HEART FAILURE Status : Chronic Current Visit: No Qualifiers: Heart failure chronicity: chronic Qualified Code(s): I50.32 - Chronic diastolic (congestive) heart failure (13) Chronic respiratory failure with hypoxia SNOMED Code(s): 422781065 ICD Code: J96.11 - CHRONIC RESPIRATORY FAILURE WITH HYPOXIA Status: Chronic Current Visit: No (14) Mitral regurgitation SNOMED Code(s): 65706671 ICD Code: I34.0 - NONRHEUMATIC MITRAL (VALVE) INSUFFICIENCY Status: Chronic Current Visit: No Qualifiers: Cardiac valve disease etiology: nonrheumatic Qualified Code(s): I34.0 - Nonrheumatic mitral (valve) insufficiency (15) Chronic atrial fibrillation SNOMED Code(s): 859995410 ICD Code: I48.2 - CHRONIC ATRIAL FIBRILLATION Status: Chronic Current Visit: No (16) History of pulmonary embolus (PE) SNOMED Code(s): 158088627 ICD Code: Z86.711 - PERSONAL HISTORY OF PULMONARY EMBOLISM Status: Chronic Current Visit: No Problem Details: PE 2004 (17) Chronic anticoagulation SNOMED Code(s): 615303538 ICD Code: Z79.01 - FRE[employer] (CURRENT) USE OF ANTICOAGULANTS Status: Chronic Current Visit: No (18) Constipation SNOMED Code(s): 46973797 ICD Code: K59.00 - CONSTIPATION, UNSPECIFIED Status: Chronic Current Visit: No Qualifiers: Constipation type: unspecified constipation type Qualified Code(s): K59.00 - Constipation, unspecified (19) Rectal bleeding SNOMED Code(s): 09658517 ICD Code: K62.5 - HEMORRHAGE OF ANUS AND RECTUM Status: Acute Current Visit: No (20) Gout SNOMED Code(s): 43668607 ICD Code: M10.9 - GOUT, UNSPECIFIED Status: Acute Current Visit: No Qualifiers: Gout site: multiple sites Gout etiology: unspecified cause Chronicity: acute Qualified Code(s): M10.9 - Gout, unspecified - Patient Summary/Data Operative Procedure(s) Performed: none Complications: none Consults: Consultations 12/04/17 11:00 OT Evaluation and Treatment [CONS] Routine PT Evaluation and Treatment [CONS] Routine Labs Pending at D/C: none Recommended Follow-up Testing/Procedures: none Planned Operative Procedure(s) after DC: none Hospital Course: Patient's course since returning from [place] has been somewhat eventful. Over last weekend, he developed hematuria and was found by CT to have a perinephric hematoma. His hemoglobin has been monitored and has remained stable. As a result of this, his warfarin has been held. He has also been struggling with delirium and been intermittently confused. Work-up has been fairly unrevealing. Overnight last night, he was tachycardic and his temperature increased to 97.3. Labs were rechecked this morning and his WBC had increased to 13,500. In light of his ongoing symptoms and change in labs, he will be transitioned to acute status today due to need for higher level of care at this point than is appropriate for swing bed. Please see today's admission H&P for further details. - Discharge Plan *PRESCRIPTION DRUG MONITORING PROGRAM REVIEWED*: No *COPY OF PRESCRIPTION DRUG MONITORING REPORT IN PATIENT ALLY: No Home Medications: Home Meds Allopurinol [Zyloprim] 300 mg PO DAILY 09/10/14 [History] Tiotropium [Spiriva HandiHaler] 1 puff PO DAILY@0700 12/24/14 [History] Diltiazem HCl [Cartia Xt] 180 mg PO DAILY 07/04/16 [History] Bisacodyl [Dulcolax] 5 mg PO DAILY PRN 07/07/16 [History] Docusate Sodium/Sennosides [Senna Plus] 1 tab PO BID@0700,1700 07/07/16 [History ] Budesonide/Formoterol [Symbicort 160-4.5 MCG] 2 puff INH BID 09/09/16 [History] Cranberry Extract [Cranberry] 500 mg PO DAILY 09/09/16 [History] Lactobacillus Combination No.4 [Probiotic] 1 cap PO BID@10,10 09/09/16 [History] Lactulose [Generlac] 30 ml PO TID PRN 09/09/16 [History] Multivitamin [Multi-Vitamin Daily] 1 tab PO DAILY 09/09/16 [History] D-Mannose 1 tab PO BID@0700,1700 04/26/17 [History] Furosemide [Lasix] 40 mg PO BID@07,199904/27/17 [History] Metoprolol Succinate [Toprol XL] 25 mg PO DAILY@199904/27/17 [History] Albuterol [Proventil HFA] 1 - 2 puff INH Q4H PRN 10/11/17 [History] Albuterol/Ipratropium [DuoNeb 3.0-0.5 MG/3 ML] 3 ml NEB BID 10/11/17 [History] Nystatin [Nystatin Crm] 1 applicful TOP Q3D 10/11/17 [History] Ampicillin 2 gm IV Q4H 11/13/17 [History] Heparin Sodium,Porcine/PF [Heparin 300 Unit/3 ml (100/ml)] 300 unit IV ASDIRECTED 11/13/17 [History] Magnesium Oxide 400 mg PO DAILY 11/13/17 [History] Sodium Chloride 0.9% [Saline Flush] 10 ml FLUSH ASDIRECTED 11/13/17 [History] cefTRIAXone [Rocephin] 2 gm IVPUSH Q12H 11/13/17 [History] Promethazine HCl/Codeine [Prometh-Codein 6.25-10 mg/5 ml] 5 ml PO Q4HR PRN 12/04 [History] Warfarin [Coumadin] 5 mg PO DAILY 12/04/17 [History] Acetaminophen [Tylenol] 650 mg PO Q4H PRN tablet 12/09/17 [Rx] Ampicillin 2 gm IV Q4H vial 12/09/17 [Rx] Cyanocobalamin (Vitamin B12) [Vitamin B12] 1,000 mcg PO DAILY tablet 12/09/17 [ Rx] Melatonin 6 mg PO BEDTIME tablet 12/09/17 [Rx] - General Info Date of Service: 12/09/17 Subjective Update: See admission H&P. - Patient Data Vitals - Most Recent: Last Vital Signs Temp 37.1 C 12/09/17 06:00 Pulse 89 12/09/17 06:00 Resp 20 12/09/17 06:00 BP 119/71 12/09/17 06:00 Pulse Ox 90 L 12/09/17 07:19 Weight - Most Recent: 99.053 kg I&O - Last 24 hours: Intake & Output 12/08/17 12/09/17 12/09/17 22:59 06:59 14:59 Intake Total 1300 205 240 Output Total 1277 8323 700 Balance 35 -3079 -059 Lab Results - Last 24 hrs: Laboratory Results - last 24 hr 12/09/17 12/09/17 12/09/17 Range/Units 08:22 08:22 08:22 WBC 13.5 H (4.0-10.0) x10^3/uL RBC 3.13 L (4.5-6.0) x10^6/uL Hgb 10.8 L (14.0-18.0) g/dL Hct 32.9 L (40.0-52.0) % MCV 105.1 H (78.0-93.0) fL MCH 34.5 H (26.0-32.0) pg MCHC 32.8 (32.0-36.0) g/dL RDW Coeff of Lety 14.3 (10.0-15.0) % Plt Count 267 (130-400) x10^3/uL Neut % (Auto) 77.5 (50.0-80.0) % Lymph % (Auto) 11.9 L (25.0-50.0) % [place] % (Auto) 8.6 (2.0-11.0) % Eos % (Auto) 1.6 (0.0-4.0) % Baso % (Auto) 0.4 (0.2-1.2) % ESR 42 H (0-16) mm/hr Sodium 137 (136-145) mmol/L Potassium 3.6 (3.5-5.1) mmol/L Chloride 103 (98-107) mmol/L Carbon Dioxide 25 (21-32) mmol/L Anion Gap 12.6 (10-20) mmol/L BUN 18 (7-18) mg/dL Creatinine 1.4 H (0.70-1.30) mg/dL Est Cr Clr Drug Dosing 43.11 mL/min Estimated GFR (MDRD) 48 Glucose 144 H (74-106) mg/dL Calcium 8.4 L (8.5-10.1) mg/dL Corrected Calcium 9.60 (8.5-10.1) mg/dL Magnesium (1.8-2.4) mg/dL Total Bilirubin 0.8 (0.2-1.0) mg/dL AST 22 (15-37) U/L ALT 23 (16-63) U/L Alkaline Phosphatase 83 (46-116) U/L C-Reactive Protein 13.3 H (<=0.9) mg/dL Total Protein 6.1 L (6.4-8.2) g/dL Albumin 2.5 L (3.4-5.0) g/dL Globulin 3.6 Albumin/Globulin Ratio 0.69 // Range/Units 08:22 WBC (4.0-10.0) x10^3/uL RBC (4.5-6.0) x10^6/uL Hgb (14.0-18.0) g/dL Hct (40.0-52.0) % MCV (78.0-93.0) fL MCH (26.0-32.0) pg MCHC (32.0-36.0) g/dL RDW Coeff of Lety (10.0-15.0) % Plt Count (130-400) x10^3/uL Neut % (Auto) (50.0-80.0) % Lymph % (Auto) (25.0-50.0) % [place] % (Auto) (2.0-11.0) % Eos % (Auto) (0.0-4.0) % Baso % (Auto) (0.2-1.2) % ESR (0-16) mm/hr Sodium (136-145) mmol/L Potassium (3.5-5.1) mmol/L Chloride (98-107) mmol/L Carbon Dioxide (21-32) mmol/L Anion Gap (10-20) mmol/L BUN (7-18) mg/dL Creatinine (0.70-1.30) mg/dL Est Cr Clr Drug Dosing mL/min Estimated GFR (MDRD) Glucose (74-106) mg/dL Calcium (8.5-10.1) mg/dL Corrected Calcium (8.5-10.1) mg/dL Magnesium 1.8 (1.8-2.4) mg/dL Total Bilirubin (0.2-1.0) mg/dL AST (15-37) U/L ALT (16-63) U/L Alkaline Phosphatase (46-116) U/L C-Reactive Protein (<=0.9) mg/dL Total Protein (6.4-8.2) g/dL Albumin (3.4-5.0) g/dL Globulin Albumin/Globulin Ratio Med Orders - Current: Current Medications Acetaminophen (Tylenol) 650 mg PO Q4H PRN PRN Reason: Pain (Mild 1-3)/fever Last Admin: 12/08/17 07:33 Dose: 650 mg Albuterol (Proventil Neb Soln) 2.5 mg NEB Q4HRRT PRN PRN Reason: Shortness of Breath Last Admin: 12/07/17 16:31 Dose: 2.5 mg Albuterol/Ipratropium (Duoneb 3.0-0.5 Mg/3 Ml) 3 ml NEB BIDRT [facility] Last Admin: 12/09/17 07:18 Dose: 3 ml Allopurinol (Zyloprim) 300 mg PO DAILY [facility] Last Admin: 12/09/17 08:26 Dose: 300 mg Bisacodyl (Dulcolax) 5 mg PO DAILY PRN PRN Reason: Constipation Ceftriaxone Sodium (Rocephin) 2 gm IVPUSH Q12H [facility] Last Admin: 12/09/17 08:25 Dose: 2 gm Cyanocobalamin (Vitamin B12) 1,000 mcg PO DAILY [facility] Last Admin: 12/09/17 08:26 Dose: 1,000 mcg Diltiazem HCl (Cardizem Cd) 180 mg PO DAILY [facility] Last Admin: 12/09/17 08:26 Dose: 180 mg Furosemide (Lasix) 40 mg PO BID@0700,2000 [facility] Last Admin: 12/09/17 06:58 Dose: 40 mg Heparin Sodium (Porcine) (Heparin Lock Flush 100 Units/Ml) 300 unit IVPUSH Q4H [facility] Last Admin: 12/09/17 11:48 Dose: 300 unit Ampicillin Sodium 2 gm/ Sodium (Chloride) 100 mls @ 200 mls/hr IV Q4H [facility] Last Admin: 12/09/17 11:48 Dose: 200 mls/hr Lactobacillus Rhamnosus (Culturelle) 1 cap PO BID@0900,2100 [facility] Last Admin: 12/09/17 08:26 Dose: 1 cap Lactulose (Cephulac) 20 gm PO TID PRN PRN Reason: Constipation Magnesium Oxide (Magnesium Oxide) 400 mg PO DAILY [facility] Last Admin: 12/09/17 08:26 Dose: 400 mg Melatonin (Melatonin) 6 mg PO BEDTIME [facility] Metoprolol Succinate (Toprol Xl) 25 mg PO DAILY@1999 [facility] Last Admin: 12/08/17 20:05 Dose: 25 mg Mometasone Furoate/Formoterol Fumar (Dulera 200-5 Mcg) 2 puff IH BIDRT [facility] Last Admin: 12/09/17 06:58 Dose: 2 puff Senna/Docusate Sodium (Senna Plus) 1 tab PO BID@0700,1700 [facility] Last Admin: 12/09/17 06:58 Dose: 1 tab Sodium Chloride (Saline Flush) 10 ml FLUSH Q4H [facility] Last Admin: 12/09/17 11:48 Dose: 10 ml Sodium Chloride (Saline Flush) 10 ml FLUSH ASDIRECTED PRN PRN Reason: Keep Vein Open Last Admin: 12/09/17 10:54 Dose: 20 ml Tiotropium [place] (Spiriva Handihaler) 18 mcg INH DAILY@0700 [facility] Last Admin: 12/09/17 06:58 Dose: 18 mcg Discontinued Medications Dextrose/Sodium Chloride (Dextrose 5%-Normal Saline) 1,000 mls @ 83 mls/hr IV ASDIRECTED [facility] Last Admin: 12/05/17 17:30 Dose: 83 mls/hr Dextrose/Sodium Chloride (Dextrose 5%-Normal Saline) 1,000 mls @ 83 mls/hr IV ASDIRECTED [facility] Stop: 12/06/17 22:48 Last Admin: 12/06/17 11:26 Dose: 83 mls/hr Lactobacillus Rhamnosus (Culturelle) 1 cap PO BID@1000,2200 [facility] Warfarin Sodium (Coumadin) 5 mg PO DAILY@1700 [facility] Last Admin: 12/07/17 17:09 Dose: Not Given *Q Meaningful Use (DIS) - VTE *Q VTE Anticoagulation Contraindications: Med/TX Not Indicated/Need
[2017-12-09] MEDS ORDERED: Sodium Chloride 0.9% 10 ML Syringe FLUSH PRN (13:14)
[2017-12-09] MEDS ORDERED: ALBUTEROL 2.5 MG NEB PRN (13:14)
[2017-12-09] MEDS ORDERED: Melatonin 3 MG Tab PO SCH (20:00)
== END 2017-12-09 12:33 | disposition critical access hospital (66) | DRG 307 ==
LOC: VM.MS 11:55
PROVIDERS: ADMIT Family Medicine; ATTEND Family Medicine
DX: I38 Endocarditis, valve unspecified (principal); I13.0 Hypertensive heart and chronic kidney disease with heart failure and stage 1 through stage 4 chronic kidney disease, or unspecified chronic kidney disease; N39.0 Urinary tract infection, site not specified; I50.32 Chronic diastolic (congestive) heart failure; J96.11 Chronic respiratory failure with hypoxia; N99.840 Postprocedural hematoma of a genitourinary system organ or structure following a genitourinary system procedure; N13.2 Hydronephrosis with renal and ureteral calculous obstruction; R51 Headache; R41.0 Disorientation, unspecified; D64.9 Anemia, unspecified; N18.3 Chronic kidney disease, stage 3 (moderate); J44.9 Chronic obstructive pulmonary disease, unspecified; I34.0 Nonrheumatic mitral (valve) insufficiency; D72.829 Elevated white blood cell count, unspecified; R00.0 Tachycardia, unspecified; M54.2 Cervicalgia; I48.2 Chronic atrial fibrillation; K59.00 Constipation, unspecified; Z66 Do not resuscitate; M10.9 Gout, unspecified; Z93.6 Other artificial openings of urinary tract status; Z79.01 Long term (current) use of anticoagulants; Z86.711 Personal history of pulmonary embolism
CPT/HCPCS: 36415; 70450; 72125; 74176; 80048; 80053; 82565; 83735; 84460; 85018; 85025; 85610; 85652; 86140; 87040; 94640; 94760; 97162-GP; 97168-GO; A9270-GY; J0290; J0696; J1642; J7042; J7050; J7613-GY; J7620-GY

== ENCOUNTER 2017-12-09 12:33 | Inpatient (IN) | payer MEDICARE, BC ==
[2017-12-09] MEDS ORDERED: Albuterol 0.083% 2.5 MG/3 ML Neb Soln NEB PRN (13:22)
[2017-12-09] MEDS ORDERED: Bisacodyl 5 MG Tab PO PRN (13:24)
[2017-12-09] MEDS ORDERED: Lactulose Soln 10 GM/15 ML 30 ML UD Cup PO PRN (13:24)
[2017-12-09] MEDS ORDERED: Sodium Chloride 0.9% 10 ML Syringe FLUSH PRN (13:24)
[2017-12-09] MEDS ORDERED: Ampicillin 2 GM Vial IV SCH (13:30)
--- NOTE | 2017-12-09 13:30 | PCM.HP ---
H&P History of Present Illness - General Date of Service: 12/09/17 Admit Problem/Dx: Admission Diagnosis/Problem Admission Diagnosis/Problem Sepsis Source of Information: Patient History Limitations: Reports: Altered Mental Status - History of Present Illness Initial Comments - Free Text/Narative: Mr. Aragon is an 82 yo male who is transitioned from swing bed to acute status due to worsening delirium and leukocytosis on labs this morning. Please see general summary of recent events as noted below. 10/11-10/14 - Admitted to [facility] acute status for sepsis. Initially felt to be urinary tract source; however, blood cultures subsequently returned positive for enterococcus and urine cultures grew pseudomonas. 10/14-10/19 - Transferred on 10/14 to [facility] - underwent further testing to evaluate the source of his enterococcus bacteremia. No source every clearly identified and he was dismissed to [facility] to complete 2 weeks of IV antibiotics. 10/19-10/29 - Admitted to [facility] for IV antibiotics - also worked with PT during this stay as well. Was doing well at the time of dismissal home. 11/03 - Returned to [facility] for increased weakness over the preceding 24 hours - admitted to [facility] again for sepsis presumed initially to be secondary to UTI. 11/04 - Noted to have worsening leukocytosis despite antibiotics and fluids - lactate also up - CT done and patient found to have left ureterolithiasis causing hydronephrosis - transferred to [facility]. 11/04-11/13 - Admitted at [facility] - blood cultures again grew enterococcus and repeat LUCRECIA confirmed endocarditis - nephrostomy tube placed due to ureterolithiasis causing hydronephrosis - patient transitioned to ceftriaxone and ampicillin once antibiotic susceptibilities available - dismissed to [facility] for IV antibiotics and PT. 11/13-12/01 - Admitted at [facility] for swing bed - doing well on IV antibiotics and progressing well with PT. 12/01-12/04 - Admitted to [facility] for ureteral stone extraction and exchange of nephrostomy tube - hospitalization complicated by delirium and hematuria - hemoglobin stable and he was discharged back to swing bed on 12/04 12/04 - present - Patient has continued with intermittent confusion. 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 Has not had a fever or chills. Cough is at baseline. Ileostomy output still red but hemoglobin has been stable - found to have a perinephric hematoma by CT last weekend. Patient denies abdominal pain. Appetite has been ok. Due to delirium, labs repeated this morning and he was found to have an increase in his WBC from just 2 days ago. Thus, he was admitted to acute for closer monitoring and interventions. - Related Data Allergies/Adverse Reactions: Allergies Allergy/AdvReac Type Severity Reaction Status Date / Time No Known Allergies Allergy Verified 11/13/17 12:00 Home Medications: Home Meds Allopurinol [Zyloprim] 300 mg PO DAILY 09/10/14 [History] Tiotropium [Spiriva HandiHaler] 1 puff PO DAILY@0700 12/24/14 [History] Diltiazem HCl [Cartia Xt] 180 mg PO DAILY 07/04/16 [History] Bisacodyl [Dulcolax] 5 mg PO DAILY PRN 07/07/16 [History] Budesonide/Formoterol [Symbicort 160-4.5 MCG] 2 puff INH BID 09/09/16 [History] Lactobacillus Combination No.4 [Probiotic] 1 cap PO BID@09/09/16 [History] Lactulose [Generlac] 20 gm PO TID PRN 09/09/16 [History] Furosemide [Lasix] 40 mg PO BID@07,199904/27/17 [History] Metoprolol Succinate [Toprol XL] 25 mg PO DAILY@199904/27/17 [History] Albuterol/Ipratropium [DuoNeb 3.0-0.5 MG/3 ML] 3 ml NEB BID 10/11/17 [History] Heparin Sodium,Porcine/PF [Heparin 300 Unit/3 ml (100/ml)] 300 unit IV Q4H 11/13 [History] Magnesium Oxide 400 mg PO DAILY 11/13/17 [History] Sodium Chloride 0.9% [Saline Flush] 10 ml FLUSH Q4H 11/13/17 [History] cefTRIAXone [Rocephin] 2 gm IVPUSH Q12H 11/13/17 [History] Acetaminophen [Tylenol] 650 mg PO Q4H PRN tablet 12/09/17 [Rx] Albuterol [Proventil] 2.5 mg NEB Q4H PRN 12/09/17 [History] Ampicillin 2 gm IV Q4H vial 12/09/17 [Rx] Cyanocobalamin (Vitamin B12) [Vitamin B12] 1,000 mcg PO DAILY tablet 12/09/17 [ Rx] Melatonin 6 mg PO BEDTIME tablet 12/09/17 [Rx] Sennosides/Docusate Sodium [Senna-Docusate Sodium Tablet] 1 each PO BID@0700, 1700 12/09/17 [History] Sodium Chloride 0.9% [Saline Flush] 10 ml FLUSH ASDIRECTED PRN 12/09/17 [History ] Past Medical History HEENT History: Reports: Hard of Hearing, Impaired Vision Cardiovascular History: Reports: Afib, Aneurysm, Heart Failure, High Cholesterol , Hypertension, Pulmonary Hypertension, Other (See Below) Other Cardiovascular History: AAA Respiratory History: Reports: COPD, PE, SOB Other Respiratory History: hypoxia, oxygen dependent Gastrointestinal History: Reports: Chronic Constipation Genitourinary History: Reports: Hydronephrosis, Renal Calculus, UTI, Recurrent Other Genitourinary History: kidney stones Musculoskeletal History: Reports: Gout, Other (See Below) Other Musculoskeletal History: collapsed vertebra, compression fracture of spine Neurological History: Reports: Other (See Below) Other Neuro History: mild cognitive impairment Psychiatric History: Reports: Other (See Below) Other Psychiatric History: adjustment disorder Endocrine/Metabolic History: Reports: None Hematologic History: Reports: Other (See Below) Other Hematologic History: coumadin therapy Immunologic History: Reports: None Oncologic (Cancer) History: Reports: Bladder Dermatologic History: Reports: Other (See Below) Other Dermatologic History: lymphadenopathy - Infectious Disease History Infectious Disease History: Reports: None - Past Surgical History HEENT Surgical History: Reports: Cataract Surgery Other HEENT Surgeries/Procedures: Unspecific Eye surgery Cardiovascular Surgical History: Reports: AAA Repair Other Cardiovascular Surgeries/Procedures: endoluminal aortic stent Respiratory Surgical History: Reports: None GI Surgical History: Reports: Hernia, Inguinal Other GI Surgeries/Procedures: Endoluminal Aortic Stent Male Surgical History: Reports: Cystectomy, Renal Calculus, TURP- Transurethral Resection of Prostate Other Male Surgeries/Procedures: UROSTOMY Dermatological Surgical History: Reports: None Social & Family History - Family History Cardiac: Reports: CAD Respiratory: Reports: None GI: Reports: None : Reports: None OBGYN: Reports: None Musculoskeletal: Reports: Arthritis Neurological: Reports: None Psychiatric: Reports: None Endocrine/Metabolic: Reports: Diabetes, type II Hematologic: Reports: None Immunologic: Reports: None Oncologic: Reports: Bladder, Breast, Colon, Skin - Tobacco Use Smoking Status *Q: Former Smoker - Caffeine Use Caffeine Use: Reports: None - Alcohol Use Alcohol Use in Last Twelve Months: No - Recreational Drug Use Recreational Drug Use: No - Living Situation & Occupation Living situation: Reports: , Alone Occupation: Retired H&P Review of Systems - Review of Systems: Review Of Systems: See Below General: Reports: No Symptoms HEENT: Reports: No Symptoms Pulmonary: Reports: Shortness of Breath, Cough Cardiovascular: Reports: No Symptoms Gastrointestinal: Reports: No Symptoms Genitourinary: Reports: Hematuria Musculoskeletal: Reports: No Symptoms Skin: Reports: No Symptoms Neurological: Reports: Confusion. Denies: Headache, Pre-Existing Deficit, Weakness Exam - Exam Exam: See Below - Exam General: Alert, Cooperative HEENT: Conjunctiva Clear, Posterior Pharynx Clear, Pupils Equal, Pupils Reactive Neck: Supple, Trachea Midline. No: Lymphadenopathy, Thyromegaly Lungs: Clear to Auscultation, Normal Respiratory Effort Cardiovascular: Regular Rate, Normal S1, Normal S2, Irregular Rhythm, Systolic Murmur GI/Abdominal Exam: Normal Bowel Sounds, Soft, Non-Tender, No Organomegaly, No Distention, No Mass Extremities: Non-Tender, No Pedal Edema, Normal Capillary Refill Peripheral Pulses: 2+: Radial (L), Radial (R) Skin: Warm, Dry, Intact Neurological: Strength Equal Bilateral, Normal Speech - Problem List (1) Leukocytosis SNOMED Code(s): 496991610, 994656986 ICD Code: D72.829 - ELEVATED WHITE BLOOD CELL COUNT, UNSPECIFIED Status: Acute Current Visit: No (2) Endocarditis of torres martinez valve SNOMED Code(s): 34618063 ICD Code: I38 - ENDOCARDITIS, VALVE UNSPECIFIED Status: Acute Current Visit: No (3) Gram-positive bacteremia SNOMED Code(s): 664023607926 ICD Code: R78.81 - BACTEREMIA Status: Acute Current Visit: No (4) Anemia SNOMED Code(s): 541846737 ICD Code: D64.9 - ANEMIA, UNSPECIFIED Status: Acute Current Visit: No Qualifiers: Anemia type: unspecified type Qualified Code(s): D64.9 - Anemia, unspecified (5) Perinephric hematoma SNOMED Code(s): 827481824 ICD Code: S37.019A - MINOR CONTUSION OF UNSPECIFIED KIDNEY, INITIAL ENCOUNTER Status: Acute Current Visit: Yes (6) Delirium SNOMED Code(s): 0408324 ICD Code: R41.0 - DISORIENTATION, UNSPECIFIED Status: Acute Current Visit : No (7) Renal calculus, left SNOMED Code(s): 74843918 ICD Code: N20.0 - CALCULUS OF KIDNEY Status: Acute Current Visit: No (8) Hydronephrosis SNOMED Code(s): 24595957 ICD Code: N13.30 - UNSPECIFIED HYDRONEPHROSIS Status: Acute Priority: Low Current Visit: No Qualifiers: Hydronephrosis type: with ureteral calculous obstruction Qualified Code(s) : N13.2 - Hydronephrosis with renal and ureteral calculous obstruction (9) Recurrent UTI SNOMED Code(s): 104126690 ICD Code: N39.0 - URINARY TRACT INFECTION, SITE NOT SPECIFIED Status: Chronic Current Visit: No (10) Chronic kidney disease SNOMED Code(s): 403716729 ICD Code: N18.9 - CHRONIC KIDNEY DISEASE, UNSPECIFIED Status: Chronic Current Visit: No Qualifiers: Chronic kidney disease stage: stage 3 (moderate) Qualified Code(s): N18.3 - Chronic kidney disease, stage 3 (moderate) (11) Weakness SNOMED Code(s): 12600769 ICD Code: R53.1 - WEAKNESS Status: Acute Priority: Medium Current Visit : No (12) COPD, severe SNOMED Code(s): 313570302 ICD Code: J44.9 - CHRONIC OBSTRUCTIVE PULMONARY DISEASE, UNSPECIFIED Status : Chronic Current Visit: No (13) Diastolic heart failure SNOMED Code(s): 377509806 ICD Code: I50.30 - UNSPECIFIED DIASTOLIC (CONGESTIVE) HEART FAILURE Status : Chronic Current Visit: No Qualifiers: Heart failure chronicity: chronic Qualified Code(s): I50.32 - Chronic diastolic (congestive) heart failure (14) Chronic respiratory failure with hypoxia SNOMED Code(s): 240229427 ICD Code: J96.11 - CHRONIC RESPIRATORY FAILURE WITH HYPOXIA Status: Chronic Current Visit: No (15) Mitral regurgitation SNOMED Code(s): 47737234 ICD Code: I34.0 - NONRHEUMATIC MITRAL (VALVE) INSUFFICIENCY Status: Chronic Current Visit: No Qualifiers: Cardiac valve disease etiology: nonrheumatic Qualified Code(s): I34.0 - Nonrheumatic mitral (valve) insufficiency (16) Chronic atrial fibrillation SNOMED Code(s): 282285221 ICD Code: I48.2 - CHRONIC ATRIAL FIBRILLATION Status: Chronic Current Visit: No (17) History of pulmonary embolus (PE) SNOMED Code(s): 694671622 ICD Code: Z86.711 - PERSONAL HISTORY OF PULMONARY EMBOLISM Status: Chronic Current Visit: No Problem Details: PE 2004 (18) Chronic anticoagulation SNOMED Code(s): 689901012 ICD Code: Z79.01 - ELDERLY COMPANION (CURRENT) USE OF ANTICOAGULANTS Status: Chronic Current Visit: No (19) Constipation SNOMED Code(s): 43469091 ICD Code: K59.00 - CONSTIPATION, UNSPECIFIED Status: Chronic Current Visit: No Qualifiers: Constipation type: unspecified constipation type Qualified Code(s): K59.00 - Constipation, unspecified (20) Insomnia SNOMED Code(s): 686599268 ICD Code: G47.00 - INSOMNIA, UNSPECIFIED Status: Chronic Current Visit: No Qualifiers: Insomnia type: unspecified Qualified Code(s): G47.00 - Insomnia, unspecified (21) Gout SNOMED Code(s): 52537767 ICD Code: M10.9 - GOUT, UNSPECIFIED Status: Acute Current Visit: No Qualifiers: Gout site: multiple sites Gout etiology: unspecified cause Chronicity: acute Qualified Code(s): M10.9 - Gout, unspecified Problem List Initiated/Reviewed/Updated: Yes Orders Last 24hrs: Active Orders 24 hr Category Date Time Status Admission Status [Patient Status] [ADT] Routine ADT 12/09/17 12:33 Active Notify Provider Vital Signs [RC] ASDIRECTED Care 12/09/17 13:23 Ordered Oxygen Therapy [RC] PRN Care 12/09/17 13:23 Ordered Up With Assistance [RC] ASDIRECTED Care 12/09/17 13:23 Ordered VTE/DVT Education [RC] PER UNIT ROUTINE Care 12/09/17 13:23 Ordered Vital Signs [RC] Q4H Care 12/09/17 13:23 Ordered PT Evaluation and Treatment [CONS] Routine Cons 12/09/17 13:13 Active Heart Healthy Diet [DIET] Diet 12/09/17 Dinner Ordered BASIC METABOLIC PANEL,BMP [CHEM] Routine Lab 12/10/17 05:11 Ordered C-REACTIVE PROTEIN [CHEM] Routine Lab 12/10/17 05:11 Ordered CBC WITH AUTO DIFF [HEME] Routine Lab 12/10/17 05:11 Ordered SEDIMENTATION RATE AUTO [HEME] Routine Lab 12/10/17 05:11 Ordered Acetaminophen [Tylenol] Med 12/09/17 13:24 Ordered 650 mg PO Q4H PRN Albuterol [Proventil Neb Soln] Med 12/09/17 13:22 Active 2.5 mg NEB Q4H PRN Albuterol/Ipratropium [DuoNeb 3.0-0.5 MG/3 ML] Med 12/09/17 20:00 Ordered 3 ml NEB BID Allopurinol [Zyloprim] Med 12/10/17 08:00 Ordered 300 mg PO DAILY Ampicillin Med 12/09/17 13:30 Ordered 2 gm IV Q4H Bisacodyl [Dulcolax] Med 12/09/17 13:24 Ordered 5 mg PO DAILY PRN Budesonide/Formoterol Med 12/09/17 20:00 Ordered 2 puff INH BID Cyanocobalamin (Vitamin B12) [Vitamin B12] Med 12/10/17 08:00 Ordered 1,000 mcg PO DAILY Diltiazem [Cardizem CD] Med 12/10/17 08:00 Ordered 180 mg PO DAILY Docusate Sodium/Sennosides [Senna Plus] Med 12/09/17 17:00 Ordered 1 each PO BID@0700,1700 Docusate Sodium/Sennosides [Senna Plus] Med 12/09/17 17:00 Active 1 tab PO BID@0700,1700 Furosemide [Lasix] Med 12/09/17 20:00 Ordered 40 mg PO BID@0700,2000 Heparin Sodium [Heparin Lock Flush 100 Units/ML] Med 12/09/17 13:30 Ordered 300 unit IVPUSH Q4H Lactobacillus Combination No.4 [Probiotic] Med 12/09/17 18:00 Ordered 1 cap PO BID@10,18 Lactulose [Generlac] Med 12/09/17 13:24 Ordered 20 gm PO TID PRN Magnesium Oxide Med 12/10/17 08:00 Ordered 400 mg PO DAILY Melatonin Med 12/09/17 20:00 Ordered 6 mg PO BEDTIME Metoprolol Succinate [Toprol XL] Med 12/09/17 20:00 Ordered 25 mg PO DAILY@1999 Sodium Chloride 0.9% [Saline Flush] Med 12/09/17 13:23 Active 10 ml FLUSH ASDIRECTED PRN Sodium Chloride 0.9% [Saline Flush] Med 12/09/17 13:24 Ordered 10 ml FLUSH ASDIRECTED PRN Sodium Chloride 0.9% [Saline Flush] Med 12/09/17 13:30 Ordered 10 ml FLUSH Q4H Tiotropium [Spiriva HandiHaler] Med 12/10/17 07:00 Ordered 1 puff INH DAILY@0700 cefTRIAXone [Rocephin] Med 12/09/17 13:30 Ordered 2 gm IVPUSH Q12H Sequential Compression Device [OM.PC] Per Unit Routine Oth 12/09/17 13:24 Ordered Resuscitation Status Routine Resus Stat 12/09/17 13:23 Ordered Medication Orders Acetaminophen (Tylenol) 650 mg PO Q4H PRN PRN Reason: Pain (Mild 1-3)/fever Albuterol (Proventil Neb Soln) 2.5 mg NEB Q4H PRN PRN Reason: Shortness of Breath Albuterol/Ipratropium (Duoneb 3.0-0.5 Mg/3 Ml) 3 ml NEB BID NATALYA Allopurinol (Zyloprim) 300 mg PO DAILY NATALYA Ampicillin Sodium (Ampicillin) 2 gm IV Q4H NATALYA Bisacodyl (Dulcolax) 5 mg PO DAILY PRN PRN Reason: Constipation Ceftriaxone Sodium (Rocephin) 2 gm IVPUSH Q12H NATALYA Cyanocobalamin (Vitamin B12) 1,000 mcg PO DAILY NATALYA Diltiazem HCl (Cardizem Cd) 180 mg PO DAILY NATALYA Furosemide (Lasix) 40 mg PO BID@0700,2000 NATALYA Heparin Sodium (Porcine) (Heparin Lock Flush 100 Units/Ml) 300 unit IVPUSH Q4H NATALYA Magnesium Oxide (Magnesium Oxide) 400 mg PO DAILY NATALYA Melatonin (Melatonin) 6 mg PO BEDTIME NATALYA Metoprolol Succinate (Toprol Xl) 25 mg PO DAILY@1999 [facility] Non-Formulary Medication (Budesonide/Formoterol) 2 puff INH BID [facility] Non-Formulary Medication (Lactobacillus Combination No.4 [Probiotic]) 1 cap PO BID@10,18 [facility] Non-Formulary Medication (Lactulose [Generlac]) 20 gm PO TID PRN PRN Reason: Constipation Senna/Docusate Sodium (Senna Plus) 1 tab PO BID@0700,1700 NATALYA Senna/Docusate Sodium (Senna Plus) tab PO BID@0700,1700 [facility] Sodium Chloride (Saline Flush) 10 ml FLUSH ASDIRECTED PRN PRN Reason: to keep vein open Sodium Chloride (Saline Flush) 10 ml FLUSH ASDIRECTED PRN PRN Reason: to keep vein open Sodium Chloride (Saline Flush) 10 ml FLUSH Q4H [facility] Tiotropium [place] (Spiriva Handihaler) mcg INH DAILY@0700 [facility] Assessment/Plan Comment:: 82 yo male transitioned from swing bed to acute today due to worsening delirium and leukocytosis on labs. No other new or changing symptoms. #1 Leukocytosis - Does not meet other sepsis criteria at this point. - Patient has no other symptoms of infection. Intermittent delirium would not be consistent with a LIBRARIAN ASSISTANT infection. In the absence of symptoms, certainly worrisome for possible line infection. - Blood cultures from peripheral and PICC drawn this am and pending. - Urine culture also to be done. - Discussed case with ID this morning and they did not recommend changing antibiotics at this time. Work-up with cultures as above but no other testing at this point. - Will recheck labs in the am. #2 Endocarditis of torres martinez valve #3 Gram positive bacteremia - Continue ceftriaxone and ampicillin. Stop date still 12/15 at this point. - Weekly CBC, ALT, and creatinine. - ID following labs and apprised of current situation as above. Will need follow -up upon dismissal. #4 Anemia, acute on chronic #5 Perinephric hematoma - Hgb remains stable. - Really no indication for follow-up CT as long as that remains the case. - Recheck CBC tomorrow am. #6 Delirium - Patient has had appropriate work-up between [place] and here. - B12 low but that is not likely to be the cause of his current symptoms. - No indication for repeat head CT without progressive or focal symptoms. - Will continue to reorient and avoid things that would worsen this. #7 Renal calculus, left #8 Hydronephrosis - S/P stone extraction and nephrostomy tube replacement. - Continue with blood-tinged drainage. As above, Hgb stable. - Continuing to monitor for now. #9 Recurrent UTI - ID follow-up outpatient. #10 Chronic Kidney Disease - Creatinine stable on labs this morning. - Will monitor daily. #11 Weakness - PT following. 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 - Home medications and oxygen continued. #15 Mitral regurgitation with flail mitral valve - Cardiology follow-up scheduled 01/14. #16 Chronic atrial fibrillation #17 History of pulmonary embolus #18 Chronic Anticoagulation - PE history remote. - Anticoagulation held in the setting of ongoing hematuria. - Will touch base with urology tomorrow if this is ongoing. IR has already been notified and did not feel further intervention was warranted unless his hemoglobin drops. #19 Constipation - Bowel regimen continued. #20 Insomnia - Starting melatonin to help with sleep. #21 Gout - No acute symptoms. - Allopurinol continued. Patient admitted to acute due to need for closer monitoring/further interventions related to leukocytosis, delirium, and hematuria. See details under problems above. Anticipate he will be on acute status for at least 2-3 days. Code status is DNR/DNI. No VTE prophylaxis given concerns for bleeding as noted above; will do SCD's if he will tolerate this.
[2017-12-09] MEDS: Heparin Sodium 100 Units/ML 3 ML Syringe IVPUSH SCH ×3 (16:14→23:31)
[2017-12-09] MEDS: Ampicillin 2 GM in Sodium Chloride 0.9% 100 ML IV SCH ×2 (16:14→20:39)
[2017-12-09] MEDS: Sodium Chloride 0.9% 10 ML Syringe FLUSH SCH ×2 (16:15→23:31)
[2017-12-09] MEDS: Lactobacillus Rhamnosus GG (Probiotic) Cap PO SCH (17:33)
[2017-12-09] MEDS: Albuterol/Ipratropium 3.0-0.5 MG/3 ML Neb Soln NEB SCH (19:18)
[2017-12-09] MEDS: Melatonin 3 MG Tab PO SCH (19:18)
[2017-12-09] MEDS: Formoterol/Mometasone 200-5 MCG 8.8 GM Inhaler IH SCH ×2 (19:19→19:21)
[2017-12-09] MEDS: cefTRIAXone 2 GM Vial IVPUSH SCH ×2 (19:20→19:21)
[2017-12-09] MEDS: Metoprolol Succinate 25 MG Tab.ER PO SCH (19:25)
[2017-12-09] MEDS: Furosemide 40 MG Tab PO SCH (20:33)
[2017-12-09] MEDS: Sodium Chloride 0.9% 10 ML Syringe FLUSH PRN (20:41)
[2017-12-10] MEDS: Ampicillin 2 GM in Sodium Chloride 0.9% 100 ML IV SCH ×7 (00:56→23:44)
[2017-12-10] MEDS: Sodium Chloride 0.9% 10 ML Syringe FLUSH SCH ×7 (00:57→23:47)
[2017-12-10] MEDS: Heparin Sodium 100 Units/ML 3 ML Syringe IVPUSH SCH ×7 (00:57→23:46)
[2017-12-10] MEDS: Furosemide 40 MG Tab PO SCH ×3 (05:20→21:18)
[2017-12-10] MEDS: Sodium Chloride 0.9% 10 ML Syringe FLUSH PRN ×2 (06:37→06:38)
[2017-12-10 07:17] LABS: ANION GAP 11.4 mmol/L (10-20)
[2017-12-10] MEDS: Albuterol/Ipratropium 3.0-0.5 MG/3 ML Neb Soln NEB SCH ×2 (07:23→20:12)
[2017-12-10] MEDS: Acetaminophen 325 MG Tab PO PRN ×2 (07:32→16:06)
[2017-12-10] MEDS: cefTRIAXone 2 GM Vial IVPUSH SCH ×2 (07:33→20:10)
[2017-12-10] MEDS: Diltiazem 180 MG Cap.CD PO SCH (07:33)
[2017-12-10] MEDS: Magnesium Oxide 400 MG Tab PO SCH (07:33)
[2017-12-10] MEDS: Allopurinol 300 MG Tab PO SCH (07:33)
[2017-12-10] MEDS: Cyanocobalamin (Vitamin B12) 1,000 MCG Tab PO SCH (07:33)
[2017-12-10] MEDS: Tiotropium Inhaler 18 MCG Inhalation Powder Cap Kit of 5 INH SCH (07:41)
[2017-12-10] MEDS: Formoterol/Mometasone 200-5 MCG 8.8 GM Inhaler IH SCH ×2 (07:42→21:17)
--- NOTE | 2017-12-10 08:43 | PCM.PN ---
- General Info Date of Service: 12/10/17 Subjective Update: Patient is feeling somewhat better this morning. Still did not sleep well last night and was restless per nursing. He feels his energy level is a bit better this morning. No increase in cough or shortness of breath. No fever or chills. No other new symptoms. - Review of Systems General: Reports: No Symptoms HEENT: Reports: No Symptoms Pulmonary: Reports: No Symptoms Cardiovascular: Reports: No Symptoms Gastrointestinal: Reports: No Symptoms Genitourinary: Reports: Hematuria Musculoskeletal: Reports: No Symptoms Skin: Reports: No Symptoms Neurological: Reports: No Symptoms - Patient Data Vitals - Most Recent: Last Vital Signs Temp 36.7 C 12/10/17 05:43 Pulse 99 12/10/17 05:43 Resp 21 H 12/10/17 05:43 BP 119/69 12/10/17 05:43 Pulse Ox 90 L 12/10/17 07:23 Weight - Most Recent: 99.337 kg I&O - Last 24 Hours: Intake & Output 12/09/17 12/10/17 12/10/17 22:59 06:59 14:59 Intake Total 220 750 Output Total 500 3300 Balance -280 -2550 Lab Results Last 24 Hours: Laboratory Results - last 24 hr 12/10/17 12/10/17 Range/Units 06:34 06:34 WBC 11.8 H (4.0-10.0) x10^3/uL RBC 3.00 L (4.5-6.0) x10^6/uL Hgb 10.4 L (14.0-18.0) g/dL Hct 31.5 L (40.0-52.0) % MCV 105.0 H (78.0-93.0) fL MCH 34.7 H (26.0-32.0) pg MCHC 33.0 (32.0-36.0) g/dL RDW Coeff of Lety 14.1 (10.0-15.0) % Plt Count 308 (130-400) x10^3/uL Neut % (Auto) 65.4 (50.0-80.0) % Lymph % (Auto) 20.2 L (25.0-50.0) % [place] % (Auto) 10.6 (2.0-11.0) % Eos % (Auto) 3.5 (0.0-4.0) % Baso % (Auto) 0.3 (0.2-1.2) % ESR 46 H (0-16) mm/hr Sodium 141 (136-145) mmol/L Potassium 3.4 L (3.5-5.1) mmol/L Chloride 104 (98-107) mmol/L Carbon Dioxide 29 (21-32) mmol/L Anion Gap 11.4 (10-20) mmol/L BUN 24 H (7-18) mg/dL Creatinine 1.4 H (0.70-1.30) mg/dL Est Cr Clr Drug Dosing 43.11 mL/min Estimated GFR (MDRD) 48 Glucose 96 (74-106) mg/dL Calcium 8.6 (8.5-10.1) mg/dL C-Reactive Protein 14.8 H (<=0.9) mg/dL Med Orders - Current: Current Medications Acetaminophen (Tylenol) 650 mg PO Q4H PRN PRN Reason: Pain (Mild 1-3)/fever Last Admin: 12/10/17 07:32 Dose: 650 mg Albuterol (Proventil Neb Soln) 2.5 mg NEB Q4H PRN PRN Reason: Shortness of Breath Albuterol/Ipratropium (Duoneb 3.0-0.5 Mg/3 Ml) 3 ml NEB BID [facility] Last Admin: 12/10/17 07:23 Dose: 3 ml Allopurinol (Zyloprim) 300 mg PO DAILY [facility] Last Admin: 12/10/17 07:33 Dose: 300 mg Bisacodyl (Dulcolax) 5 mg PO DAILY PRN PRN Reason: Constipation Ceftriaxone Sodium (Rocephin) 2 gm IVPUSH Q12H [facility] Last Admin: 12/10/17 07:33 Dose: 2 gm Cyanocobalamin (Vitamin B12) 1,000 mcg PO DAILY [facility] Last Admin: 12/10/17 07:33 Dose: 1,000 mcg Diltiazem HCl (Cardizem Cd) 180 mg PO DAILY [facility] Last Admin: 12/10/17 07:33 Dose: 180 mg Furosemide (Lasix) 40 mg PO BID@0700,2000 [facility] Last Admin: 12/10/17 07:34 Dose: Not Given Heparin Sodium (Porcine) (Heparin Lock Flush 100 Units/Ml) 300 unit IVPUSH Q4H [facility] Last Admin: 12/10/17 07:33 Dose: 300 unit Ampicillin Sodium 2 gm/ Sodium (Chloride) 100 mls @ 200 mls/hr IV Q4H [facility] Last Admin: 12/10/17 07:34 Dose: 200 mls/hr Lactobacillus Rhamnosus (Culturelle) 1 cap PO BID@, [facility] Last Admin: 12/09/17 17:33 Dose: 1 cap Lactulose (Cephulac) 20 gm PO TID PRN PRN Reason: Constipation Magnesium Oxide (Magnesium Oxide) 400 mg PO DAILY [facility] Last Admin: 12/10/17 07:33 Dose: 400 mg Melatonin (Melatonin) 6 mg PO BEDTIME [facility] Last Admin: 12/09/17 19:18 Dose: 6 mg Metoprolol Succinate (Toprol Xl) 25 mg PO DAILY@1999 [facility] Last Admin: 12/09/17 19:25 Dose: 25 mg Mometasone Furoate/Formoterol Fumar (Dulera 200-5 Mcg) 2 puff IH BID [facility] Last Admin: 12/10/17 07:42 Dose: 2 puff Senna/Docusate Sodium (Senna Plus) 1 tab PO BID@0700,1700 [facility] Last Admin: 12/10/17 07:34 Dose: Not Given Sodium Chloride (Saline Flush) 10 ml FLUSH ASDIRECTED PRN PRN Reason: to keep vein open Last Admin: 12/10/17 06:38 Dose: 10 ml Sodium Chloride (Saline Flush) 10 ml FLUSH ASDIRECTED PRN PRN Reason: to keep vein open Sodium Chloride (Saline Flush) 10 ml FLUSH Q4H [facility] Last Admin: 12/10/17 07:42 Dose: 10 ml Tiotropium [place] (Spiriva Handihaler) 18 mcg INH DAILY@0700 [facility] Last Admin: 12/10/17 07:41 Dose: Not Given - Exam General: Alert, Oriented, No Acute Distress HEENT: Pupils Equal, Pupils Reactive, Mucous Membr. Moist/[place] Neck: Supple, Trachea Midline, No Thyromegaly. No: Lymphadenopathy Lungs: Clear to Auscultation, Normal Respiratory Effort Cardiovascular: Regular Rate, Irregular Rhythm, Murmurs GI/Abdominal Exam: Normal Bowel Sounds, Soft, Non-Tender, No Organomegaly, No Distention, No Mass Extremities: Non-Tender, No Pedal Edema, Normal Capillary Refill Peripheral Pulses: 2+: Radial (L), Radial (R) Skin: Warm, Dry, Intact Neurological: No New Focal Deficit - Problem List & Annotations (1) Leukocytosis SNOMED Code(s): 970218178, 285649789 Code(s): D72.829 - ELEVATED WHITE BLOOD CELL COUNT, UNSPECIFIED Status: Acute Current Visit: No (2) Endocarditis of hoopa valve SNOMED Code(s): 24452899 Code(s): I38 - ENDOCARDITIS, VALVE UNSPECIFIED Status: Acute Current Visit: No (3) Gram-positive bacteremia SNOMED Code(s): 506504189760 Code(s): R78.81 - BACTEREMIA Status: Acute Current Visit: No (4) Anemia SNOMED Code(s): 037007027 Code(s): D64.9 - ANEMIA, UNSPECIFIED Status: Acute Current Visit: No Qualifiers: Anemia type: unspecified type Qualified Code(s): D64.9 - Anemia, unspecified (5) Perinephric hematoma SNOMED Code(s): 082973530 Code(s): S37.019A - MINOR CONTUSION OF UNSPECIFIED KIDNEY, INITIAL ENCOUNTER Status: Acute Current Visit: Yes (6) Delirium SNOMED Code(s): 7092877 Code(s): R41.0 - DISORIENTATION, UNSPECIFIED Status: Acute Current Visit : No (7) Renal calculus, left SNOMED Code(s): 29033477 Code(s): N20.0 - CALCULUS OF KIDNEY Status: Acute Current Visit: No (8) Hydronephrosis SNOMED Code(s): 55181641 Code(s): N13.30 - UNSPECIFIED HYDRONEPHROSIS Status: Acute Priority: Low Current Visit: No Qualifiers: Hydronephrosis type: with ureteral calculous obstruction Qualified Code(s) : N13.2 - Hydronephrosis with renal and ureteral calculous obstruction (9) Recurrent UTI SNOMED Code(s): 686804939 Code(s): N39.0 - URINARY TRACT INFECTION, SITE NOT SPECIFIED Status: Chronic Current Visit: No (10) Chronic kidney disease SNOMED Code(s): 091244438 Code(s): N18.9 - CHRONIC KIDNEY DISEASE, UNSPECIFIED Status: Chronic Current Visit: No Qualifiers: Chronic kidney disease stage: stage 3 (moderate) Qualified Code(s): N18.3 - Chronic kidney disease, stage 3 (moderate) (11) Weakness SNOMED Code(s): 71543823 Code(s): R53.1 - WEAKNESS Status: Acute Priority: Medium Current Visit : No (12) COPD, severe SNOMED Code(s): 907788668 Code(s): J44.9 - CHRONIC OBSTRUCTIVE PULMONARY DISEASE, UNSPECIFIED Status : Chronic Current Visit: No (13) Diastolic heart failure SNOMED Code(s): 688534764 Code(s): I50.30 - UNSPECIFIED DIASTOLIC (CONGESTIVE) HEART FAILURE Status: Chronic Current Visit: No Qualifiers: Heart failure chronicity: chronic Qualified Code(s): I50.32 - Chronic diastolic (congestive) heart failure (14) Chronic respiratory failure with hypoxia SNOMED Code(s): 878138160 Code(s): J96.11 - CHRONIC RESPIRATORY FAILURE WITH HYPOXIA Status: Chronic Current Visit: No (15) Mitral regurgitation SNOMED Code(s): 24886500 Code(s): I34.0 - NONRHEUMATIC MITRAL (VALVE) INSUFFICIENCY Status: Chronic Current Visit: No Qualifiers: Cardiac valve disease etiology: nonrheumatic Qualified Code(s): I34.0 - Nonrheumatic mitral (valve) insufficiency (16) Chronic atrial fibrillation SNOMED Code(s): 982820794 Code(s): I48.2 - CHRONIC ATRIAL FIBRILLATION Status: Chronic Current Visit: No (17) History of pulmonary embolus (PE) SNOMED Code(s): 819321540 Code(s): Z86.711 - PERSONAL HISTORY OF PULMONARY EMBOLISM Status: Chronic Current Visit: No Annotation/Comment:: PE 2004 (18) Chronic anticoagulation SNOMED Code(s): 815998389 Code(s): Z79.01 - PENITENTIARY (CURRENT) USE OF ANTICOAGULANTS Status: Chronic Current Visit: No (19) Constipation SNOMED Code(s): 73243932 Code(s): K59.00 - CONSTIPATION, UNSPECIFIED Status: Chronic Current Visit : No Qualifiers: Constipation type: unspecified constipation type Qualified Code(s): K59.00 - Constipation, unspecified (20) Insomnia SNOMED Code(s): 664364083 Code(s): G47.00 - INSOMNIA, UNSPECIFIED Status: Chronic Current Visit: No Qualifiers: Insomnia type: unspecified Qualified Code(s): G47.00 - Insomnia, unspecified (21) Gout SNOMED Code(s): 59733440 Code(s): M10.9 - GOUT, UNSPECIFIED Status: Acute Current Visit: No Qualifiers: Gout site: multiple sites Gout etiology: unspecified cause Chronicity: acute Qualified Code(s): M10.9 - Gout, unspecified - Problem List Review Problem List Initiated/Reviewed/Updated: Yes - My Orders Last 24 Hours: My Active Orders 12/09/17 12:33 Admission Status [Patient Status] [ADT] Routine 12/09/17 13:13 PT Evaluation and Treatment [CONS] Routine 12/09/17 13:22 Albuterol [Proventil Neb Soln] 2.5 mg NEB Q4H PRN 12/09/17 13:23 Notify Provider Vital Signs [RC] 06,10,14,18,22,02 Oxygen Therapy [RC] 08,20 Up With Assistance [RC] 08,20 Vital Signs [RC] 06,10,14,18,22,02 Sodium Chloride 0.9% [Saline Flush] 10 ml FLUSH ASDIRECTED PRN Resuscitation Status Routine 12/09/17 13:24 Acetaminophen [Tylenol] 650 mg PO Q4H PRN Bisacodyl [Dulcolax] 5 mg PO DAILY PRN Lactulose [Cephulac] 20 gm PO TID PRN Sodium Chloride 0.9% [Saline Flush] 10 ml FLUSH ASDIRECTED PRN Sequential Compression Device [OM.PC] Per Unit Routine 12/09/17 14:39 Dietary Supplements [RC] ,12/09/17 15:15 CULTURE URINE [RM] Routine 12/09/17 16:00 Ampicillin 2 gm Sodium Chloride 0.9% [Normal Saline] 100 ml IV Q4H 12/09/17 16:30 Heparin Sodium [Heparin Lock Flush 100 Units/ML] 300 unit IVPUSH Q4H Sodium Chloride 0.9% [Saline Flush] 10 ml FLUSH Q4H 12/09/17 17:00 Docusate Sodium/Sennosides [Senna Plus] 1 tab PO BID@0700,1700 09/19/18 18:00 Lactobacillus Rhamnosus GG [Culturelle] 1 cap PO BID@,18 12/09/17 20:00 Albuterol/Ipratropium [DuoNeb 3.0-0.5 MG/3 ML] 3 ml NEB BID Furosemide [Lasix] 40 mg PO BID@0700,2000 Melatonin 6 mg PO BEDTIME Metoprolol Succinate [Toprol XL] 25 mg PO DAILY@1999 Mometasone/Formoterol [Dulera 200-5 MCG] 2 puff IH BID cefTRIAXone [Rocephin] 2 gm IVPUSH Q12H 12/09/17 Dinner Heart Healthy Diet [DIET] 12/10/17 07:00 Tiotropium [Spiriva HandiHaler] 18 mcg INH DAILY@0700 12/10/17 08:00 Allopurinol [Zyloprim] 300 mg PO DAILY Cyanocobalamin (Vitamin B12) [Vitamin B12] 1,000 mcg PO DAILY Diltiazem [Cardizem CD] 180 mg PO DAILY Magnesium Oxide 400 mg PO DAILY 12/11/17 20:30 Communication Order [RC] Q3D 12/12/17 11:00 Communication Order [RC] Q4D 12/16/17 10:00 Communication Order [RC] PER UNIT ROUTINE - Assessment Assessment:: 82 yo male admitted with worsening delirium and increased WBC in the setting of swing bed admission for IV antibiotics for endocarditis and PT for strengthening. Doing some better this morning. - Plan Plan:: 82 yo male transitioned from swing bed to acute today due to worsening delirium and leukocytosis on labs. No other new or changing symptoms. #1 Leukocytosis - Has not met sepsis criteria. - WBC downtrending today. Inflammatory markers stable. - Patient has no other symptoms of infection. - Blood and urine cultures pending. - Discussed case with ID yesterday and they recommended holding off on changing antibiotics until culture results are available. - Will recheck labs in the am. #2 Endocarditis of hoopa valve #3 Gram positive bacteremia - Continue ceftriaxone and ampicillin. Stop date still 12/15 at this point. - Weekly CBC, ALT, and creatinine. - ID following labs and apprised of current situation as above. Will need follow -up upon dismissal. #4 Anemia, acute on chronic #5 Perinephric hematoma - Hgb remains stable. - Really no indication for follow-up CT as long as that remains the case. - Will touch base with urology today. - Recheck CBC tomorrow am. #6 Delirium - Patient has had appropriate work-up between [place] and here. - He is much clearer this morning than he has been all week. - Holding off on further work-up for now. - Will continue to reorient and avoid things that would worsen this. #7 Renal calculus, left #8 Hydronephrosis - S/P stone extraction and nephrostomy tube replacement. - Continue with blood-tinged drainage. As above, Hgb stable. - Continuing to monitor for now. - As above, will touch base with urology today. #9 Recurrent UTI - ID follow-up outpatient. #10 Chronic Kidney Disease - Creatinine stable. - Will monitor daily. #11 Weakness - PT following. 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 - Home medications and oxygen continued. #15 Mitral regurgitation with flail mitral valve - Cardiology follow-up scheduled 01/14. #16 Chronic atrial fibrillation #17 History of pulmonary embolus #18 Chronic Anticoagulation - PE history remote. - Anticoagulation held in the setting of ongoing hematuria. - Will touch base with urology today. IR has already been notified and did not feel further intervention was warranted unless his hemoglobin drops. #19 Constipation - Bowel regimen continued. #20 Insomnia - Starting melatonin to help with sleep. #21 Gout - No acute symptoms. - Allopurinol continued. Patient admitted to acute due to need for closer monitoring/further interventions related to leukocytosis, delirium, and hematuria - will remain on acute today and possibly transition back to swing bed tomorrow if labs continue to improve. See details under problems above. Code status is DNR/DNI. No VTE prophylaxis given concerns for bleeding as noted above; will do SCD's if he will tolerate this.
[2017-12-10] MEDS: Lactobacillus Rhamnosus GG (Probiotic) Cap PO SCH ×2 (10:02→18:18)
[2017-12-10] MEDS: Metoprolol Succinate 25 MG Tab.ER PO SCH (20:12)
[2017-12-10] MEDS: Melatonin 3 MG Tab PO SCH (21:18)
[2017-12-11] MEDS: Ampicillin 2 GM in Sodium Chloride 0.9% 100 ML IV SCH ×2 (04:08→07:52)
[2017-12-11] MEDS: Heparin Sodium 100 Units/ML 3 ML Syringe IVPUSH SCH ×2 (04:10→07:53)
[2017-12-11 05:12] VITALS: BP 104/64
[2017-12-11] MEDS: Albuterol/Ipratropium 3.0-0.5 MG/3 ML Neb Soln NEB SCH (07:03)
[2017-12-11] MEDS: Sodium Chloride 0.9% 10 ML Syringe FLUSH SCH ×2 (07:27→07:54)
[2017-12-11 07:31] LABS: ANION GAP 12.4 mmol/L (10-20)
[2017-12-11] MEDS: cefTRIAXone 2 GM Vial IVPUSH SCH (07:52)
[2017-12-11] MEDS: Diltiazem 180 MG Cap.CD PO SCH (07:53)
[2017-12-11] MEDS: Furosemide 40 MG Tab PO SCH (07:53)
[2017-12-11] MEDS: Allopurinol 300 MG Tab PO SCH (07:53)
[2017-12-11] MEDS: Cyanocobalamin (Vitamin B12) 1,000 MCG Tab PO SCH (07:53)
[2017-12-11] MEDS: Magnesium Oxide 400 MG Tab PO SCH (07:53)
[2017-12-11] MEDS: Tiotropium Inhaler 18 MCG Inhalation Powder Cap Kit of 5 INH SCH (07:53)
[2017-12-11] MEDS: Formoterol/Mometasone 200-5 MCG 8.8 GM Inhaler IH SCH (07:55)
--- NOTE | 2017-12-11 09:53 | PCM.DCSUM1 ---
Discharge Summary - Hospital Course Brief History: Mr. Aragon is an 82 yo male who was admitted to acute from swing bed due to worsening confusion and leukocytosis. 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 SNOMED Code(s): 04966546 ICD Code: I38 - ENDOCARDITIS, VALVE UNSPECIFIED Status: Acute Current Visit: No (3) Gram-positive bacteremia SNOMED Code(s): 005948292233 ICD Code: R78.81 - BACTEREMIA Status: Acute Current Visit: No (4) Anemia SNOMED Code(s): 701129928 ICD Code: D64.9 - ANEMIA, UNSPECIFIED Status: Acute Current Visit: No Qualifiers: Anemia type: unspecified type Qualified Code(s): D64.9 - Anemia, unspecified (5) Perinephric hematoma SNOMED Code(s): 718301057 ICD Code: S37.019A - MINOR CONTUSION OF UNSPECIFIED KIDNEY, INITIAL ENCOUNTER Status: Acute Current Visit: Yes (6) Delirium SNOMED Code(s): 8644559 ICD Code: R41.0 - DISORIENTATION, UNSPECIFIED Status: Acute Current Visit : No (7) Renal calculus, left SNOMED Code(s): 89108083 ICD Code: N20.0 - CALCULUS OF KIDNEY Status: Acute Current Visit: No (8) Hydronephrosis SNOMED Code(s): 33987264 ICD Code: N13.30 - UNSPECIFIED HYDRONEPHROSIS Status: Acute Priority: Low Current Visit: No Qualifiers: Hydronephrosis type: with ureteral calculous obstruction Qualified Code(s) : N13.2 - Hydronephrosis with renal and ureteral calculous obstruction (9) Recurrent UTI SNOMED Code(s): 509026508 ICD Code: N39.0 - URINARY TRACT INFECTION, SITE NOT SPECIFIED Status: Chronic Current Visit: No (10) Chronic kidney disease SNOMED Code(s): 014616584 ICD Code: N18.9 - CHRONIC KIDNEY DISEASE, UNSPECIFIED Status: Chronic Current Visit: No Qualifiers: Chronic kidney disease stage: stage 3 (moderate) Qualified Code(s): N18.3 - Chronic kidney disease, stage 3 (moderate) (11) Weakness SNOMED Code(s): 24799080 ICD Code: R53.1 - WEAKNESS Status: Acute Priority: Medium Current Visit : No (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, severe SNOMED Code(s): 771237415 ICD Code: J44.9 - CHRONIC OBSTRUCTIVE PULMONARY DISEASE, UNSPECIFIED Status : Chronic Current Visit: No (13) Diastolic heart failure SNOMED Code(s): 435832277 ICD Code: I50.30 - UNSPECIFIED DIASTOLIC (CONGESTIVE) HEART FAILURE Status : Chronic Current Visit: No Qualifiers: Heart failure chronicity: chronic Qualified Code(s): I50.32 - Chronic diastolic (congestive) heart failure (14) Chronic respiratory failure with hypoxia SNOMED Code(s): 686192047 ICD Code: J96.11 - CHRONIC RESPIRATORY FAILURE WITH HYPOXIA Status: Chronic Current Visit: No (15) Mitral regurgitation SNOMED Code(s): 79940261 ICD Code: I34.0 - NONRHEUMATIC MITRAL (VALVE) INSUFFICIENCY Status: Chronic Current Visit: No Qualifiers: Cardiac valve disease etiology: nonrheumatic Qualified Code(s): I34.0 - Nonrheumatic mitral (valve) insufficiency (16) Chronic atrial fibrillation SNOMED Code(s): 257603778 ICD Code: I48.2 - CHRONIC ATRIAL FIBRILLATION Status: Chronic Current Visit: No (17) History of pulmonary embolus (PE) SNOMED Code(s): 021422488 ICD Code: Z86.711 - PERSONAL HISTORY OF PULMONARY EMBOLISM Status: Chronic Current Visit: No Problem Details: PE 2004 (18) Chronic anticoagulation SNOMED Code(s): 553684980 ICD Code: Z79.01 - 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) USE OF ANTICOAGULANTS Status: Chronic Current Visit: No (19) Constipation SNOMED Code(s): 67934773 ICD Code: K59.00 - CONSTIPATION, UNSPECIFIED Status: Chronic Current Visit: No Qualifiers: Constipation type: unspecified constipation type Qualified Code(s): K59.00 - Constipation, unspecified (20) Insomnia SNOMED Code(s): 211648537 ICD Code: G47.00 - INSOMNIA, UNSPECIFIED Status: Chronic Current Visit: No Qualifiers: Insomnia type: unspecified Qualified Code(s): G47.00 - Insomnia, unspecified (21) Gout SNOMED Code(s): 34031422 ICD Code: M10.9 - GOUT, UNSPECIFIED Status: Acute Current Visit: No Qualifiers: Gout site: multiple sites Gout etiology: unspecified cause Chronicity: acute Qualified Code(s): M10.9 - Gout, unspecified - Patient Summary/Data Operative Procedure(s) Performed: none Complications: none Consults: Consultations 12/09/17 13:13 PT Evaluation and Treatment [CONS] Routine Labs Pending at D/C: none Recommended Follow-up Testing/Procedures: none Planned Operative Procedure(s) after DC: none Hospital Course: Antibiotics were continued as per previous. His vitals were monitored every 4 hours and stable. His labs progressively improved as did his confusion. He is still having some difficulty at night but is relatively clear throughout the day. Therefore, he is felt stable to transition back to swing bed status. - Patient Instructions Diet: Heart Healthy Diet - Discharge Plan *PRESCRIPTION DRUG MONITORING PROGRAM REVIEWED*: No *COPY OF PRESCRIPTION DRUG MONITORING REPORT IN PATIENT ALLY: No Home Medications: Home Meds Allopurinol [Zyloprim] 300 mg PO DAILY 09/10/14 [History] Tiotropium [Spiriva HandiHaler] 1 puff PO DAILY@0700 12/24/14 [History] Diltiazem HCl [Cartia Xt] 180 mg PO DAILY 07/04/16 [History] Bisacodyl [Dulcolax] 5 mg PO DAILY PRN 07/07/16 [History] Budesonide/Formoterol [Symbicort 160-4.5 MCG] 2 puff INH BID 09/09/16 [History] Lactobacillus Combination No.4 [Probiotic] 1 cap PO BID@09/09/16 [History] Lactulose [Generlac] 20 gm PO TID PRN 09/09/16 [History] Furosemide [Lasix] 40 mg PO BID@0700,199904/27/17 [History] Metoprolol Succinate [Toprol XL] 25 mg PO DAILY@199904/27/17 [History] Albuterol/Ipratropium [DuoNeb 3.0-0.5 MG/3 ML] 3 ml NEB BID 10/11/17 [History] Heparin Sodium,Porcine/PF [Heparin 300 Unit/3 ml (100/ml)] 300 unit IV Q4H 11/13 [History] Magnesium Oxide 400 mg PO DAILY 11/13/17 [History] Sodium Chloride 0.9% [Saline Flush] 10 ml FLUSH Q4H 11/13/17 [History] cefTRIAXone [Rocephin] 2 gm IVPUSH Q12H 11/13/17 [History] Acetaminophen [Tylenol] 650 mg PO Q4H PRN tablet 12/09/17 [Rx] Albuterol [Proventil] 2.5 mg NEB Q4H PRN 12/09/17 [History] Ampicillin 2 gm IV Q4H vial 12/09/17 [Rx] Cyanocobalamin (Vitamin B12) [Vitamin B12] 1,000 mcg PO DAILY tablet 12/09/17 [ Rx] Melatonin 6 mg PO BEDTIME tablet 12/09/17 [Rx] Sennosides/Docusate Sodium [Senna-Docusate Sodium Tablet] 1 each PO BID@0700, 1700 12/09/17 [History] Sodium Chloride 0.9% [Saline Flush] 10 ml FLUSH ASDIRECTED PRN 12/09/17 [History ] Ampicillin 2 gm IV Q4H vial 12/11/17 [Rx] - Discharge Summary/Plan Comment DC Time >30 min.: No - General Info Date of Service: 12/11/17 Subjective Update: Patient is doing well this am. Still did not sleep well and is having some confusion at night. Much clearer during the daytime over the past 2 days. No fever or chills. Having some left lower back pain around the site of his capped nephrostomy tube. Urine is still red tinged but less so. No other symptoms. - Review of Systems General: Reports: No Symptoms HEENT: Reports: No Symptoms Pulmonary: Reports: No Symptoms Cardiovascular: Reports: No Symptoms Gastrointestinal: Reports: No Symptoms Genitourinary: Reports: No Symptoms Musculoskeletal: Reports: Back Pain Skin: Reports: No Symptoms Neurological: Reports: No Symptoms - Patient Data Vitals - Most Recent: Last Vital Signs Temp 36.7 C 12/11/17 05:11 Pulse 100 12/11/17 05:11 Resp 18 12/11/17 05:11 BP 104/64 12/11/17 05:11 Pulse Ox 92 L 12/11/17 07:01 Weight - Most Recent: 93.259 kg I&O - Last 24 hours: Intake & Output 12/10/17 12/11/17 12/11/17 22:59 06:59 14:59 Intake Total 520 1340 Output Total 950 450 400 Balance -430 890 -400 Lab Results - Last 24 hrs: Laboratory Results - last 24 hr 12/11/17 12/11/17 Range/Units 06:38 06:38 WBC 10.0 (4.0-10.0) x10^3/uL RBC 3.12 L (4.5-6.0) x10^6/uL Hgb 10.8 L (14.0-18.0) g/dL Hct 33.0 L (40.0-52.0) % MCV 105.8 H (78.0-93.0) fL MCH 34.6 H (26.0-32.0) pg MCHC 32.7 (32.0-36.0) g/dL RDW Coeff of Lety 14.2 (10.0-15.0) % Plt Count 371 (130-400) x10^3/uL Neut % (Auto) 65.5 (50.0-80.0) % Lymph % (Auto) 18.2 L (25.0-50.0) % [place] % (Auto) 10.3 (2.0-11.0) % Eos % (Auto) 5.5 H (0.0-4.0) % Baso % (Auto) 0.5 (0.2-1.2) % ESR 42 H (0-16) mm/hr Sodium 142 (136-145) mmol/L Potassium 3.4 L (3.5-5.1) mmol/L Chloride 105 (98-107) mmol/L Carbon Dioxide 28 (21-32) mmol/L Anion Gap 12.4 (10-20) mmol/L BUN 27 H (7-18) mg/dL Creatinine 1.5 H (0.70-1.30) mg/dL Est Cr Clr Drug Dosing 40.24 mL/min Estimated GFR (MDRD) 45 Glucose 121 H (74-106) mg/dL Calcium 8.7 (8.5-10.1) mg/dL C-Reactive Protein 10.8 H (<=0.9) mg/dL KIERRA Results - Last 24 hrs: Microbiology 12/09/17 15:15 Urine Culture - Preliminary Urine, Urostromy Yeast Isolated Med Orders - Current: Current Medications Acetaminophen (Tylenol) 650 mg PO Q4H PRN PRN Reason: Pain (Mild 1-3)/fever Last Admin: 12/10/17 16:06 Dose: 650 mg Albuterol (Proventil Neb Soln) 2.5 mg NEB Q4H PRN PRN Reason: Shortness of Breath Albuterol/Ipratropium (Duoneb 3.0-0.5 Mg/3 Ml) 3 ml NEB BID [facility] Last Admin: 12/11/17 07:03 Dose: 3 ml Allopurinol (Zyloprim) 300 mg PO DAILY [facility] Last Admin: 12/11/17 07:53 Dose: 300 mg Bisacodyl (Dulcolax) 5 mg PO DAILY PRN PRN Reason: Constipation Ceftriaxone Sodium (Rocephin) 2 gm IVPUSH Q12H [facility] Last Admin: 12/11/17 07:52 Dose: 2 gm Cyanocobalamin (Vitamin B12) 1,000 mcg PO DAILY [facility] Last Admin: 12/11/17 07:53 Dose: 1,000 mcg Diltiazem HCl (Cardizem Cd) 180 mg PO DAILY [facility] Last Admin: 12/11/17 07:53 Dose: 180 mg Furosemide (Lasix) 40 mg PO BID@0700,2000 [facility] Last Admin: 12/11/17 07:53 Dose: 40 mg Heparin Sodium (Porcine) (Heparin Lock Flush 100 Units/Ml) 300 unit IVPUSH Q4H [facility] Last Admin: 12/11/17 07:53 Dose: 300 unit Ampicillin Sodium 2 gm/ Sodium (Chloride) 100 mls @ 200 mls/hr IV Q4H [facility] Last Admin: 12/11/17 07:52 Dose: 200 mls/hr Lactobacillus Rhamnosus (Culturelle) 1 cap PO BID@18 [facility] Last Admin: 12/10/17 18:18 Dose: 1 cap Lactulose (Cephulac) 20 gm PO TID PRN PRN Reason: Constipation Magnesium Oxide (Magnesium Oxide) 400 mg PO DAILY [facility] Last Admin: 12/11/17 07:53 Dose: 400 mg Melatonin (Melatonin) 6 mg PO BEDTIME [facility] Last Admin: 12/10/17 21:18 Dose: 6 mg Metoprolol Succinate (Toprol Xl) 25 mg PO DAILY@2000 [facility] Last Admin: 12/10/17 20:12 Dose: 25 mg Mometasone Furoate/Formoterol Fumar (Dulera 200-5 Mcg) 2 puff IH BID [facility] Last Admin: 12/11/17 07:55 Dose: 2 puff Senna/Docusate Sodium (Senna Plus) 1 tab PO BID@0700,1700 [facility] Last Admin: 12/11/17 07:53 Dose: 1 tab Sodium Chloride (Saline Flush) 10 ml FLUSH ASDIRECTED PRN PRN Reason: to keep vein open Last Admin: 12/10/17 06:38 Dose: 10 ml Sodium Chloride (Saline Flush) 10 ml FLUSH ASDIRECTED PRN PRN Reason: to keep vein open Sodium Chloride (Saline Flush) 10 ml FLUSH Q4H [facility] Last Admin: 12/11/17 07:54 Dose: 10 ml Tiotropium [place] (Spiriva Handihaler) 18 mcg INH DAILY@0700 [facility] Last Admin: 12/11/17 07:53 Dose: 18 mcg - Exam General: Reports: Alert, Oriented, Cooperative, No Acute Distress HEENT: Reports: Pupils Equal, Pupils Reactive, Mucous Membr. Moist/[place] Neck: Reports: Supple, Trachea Midline, No Thyromegaly. Denies: Lymphadenopathy Lungs: Reports: Clear to Auscultation, Normal Respiratory Effort Cardiovascular: Reports: Regular Rate, Irregular Rhythm, Murmurs GI/Abdominal Exam: Normal Bowel Sounds, Soft, Non-Tender, No Organomegaly, No Distention, No Mass Extremities: Non-Tender, No Pedal Edema, Normal Capillary Refill Skin: Reports: Warm, Dry, Intact Neurological: Reports: No New Focal Deficit, Normal Speech
== END 2017-12-11 10:00 | disposition swing bed (61) | DRG 307 ==
LOC: VM.MS 12:33
PROVIDERS: ADMIT Family Medicine; ATTEND Family Medicine
DX: I38 Endocarditis, valve unspecified (principal); I50.30 Unspecified diastolic (congestive) heart failure; J96.11 Chronic respiratory failure with hypoxia; S37.019A Minor contusion of unspecified kidney, initial encounter; I13.0 Hypertensive heart and chronic kidney disease with heart failure and stage 1 through stage 4 chronic kidney disease, or unspecified chronic kidney disease; I50.32 Chronic diastolic (congestive) heart failure; N13.2 Hydronephrosis with renal and ureteral calculous obstruction; B96.5 Pseudomonas (aeruginosa) (mallei) (pseudomallei) as the cause of diseases classified elsewhere; D64.9 Anemia, unspecified; N18.3 Chronic kidney disease, stage 3 (moderate); J44.9 Chronic obstructive pulmonary disease, unspecified; I34.0 Nonrheumatic mitral (valve) insufficiency; G47.00 Insomnia, unspecified; K59.09 Other constipation; I48.2 Chronic atrial fibrillation; M10.9 Gout, unspecified; H91.90 Unspecified hearing loss, unspecified ear; H54.7 Unspecified visual loss; G31.84 Mild cognitive impairment of uncertain or unknown etiology; Z66 Do not resuscitate; Z86.711 Personal history of pulmonary embolism; Z79.01 Long term (current) use of anticoagulants; Z93.6 Other artificial openings of urinary tract status; Z79.899 Other long term (current) drug therapy; Z99.81 Dependence on supplemental oxygen; Z87.891 Personal history of nicotine dependence; Z87.440 Personal history of urinary (tract) infections
CPT/HCPCS: 80048; 85025; 85652; 86140; 87086; 94640; 94760; 97116-GP; 97164-GP; A9270-GY; J0290; J0696; J1642; J7050; J7620-GY

== ENCOUNTER 2018-04-11 17:40 | Inpatient (IN) | payer MEDICARE, BC ==
[2018-04-11] MEDS ORDERED: cefTRIAXone 1 GM Vial IVPUSH ONE (17:57)
--- NOTE | 2018-04-11 18:11 | EDM.PDOC ---
<Eliel Mccain W - Last Filed: 04/12/18 07:06> ED HPI GENERAL MEDICAL PROBLEM - General Chief Complaint: Possible Sepsis Time Seen by Provider: 04/11/18 18:11 Source of Information: Reports: Patient - Related Data Allergies Allergy/AdvReac Type Severity Reaction Status Date / Time No Known Allergies Allergy Verified 01/26/18 18:04 Home Meds: Home Meds Allopurinol [Zyloprim] 150 mg PO DAILY 09/10/14 [History] Tiotropium [Spiriva HandiHaler] 1 puff PO DAILY@0700 12/24/14 [History] Diltiazem HCl [Cartia Xt] 180 mg PO DAILY 07/04/16 [History] Bisacodyl [Dulcolax] 5 mg PO DAILY PRN 07/07/16 [History] Budesonide/Formoterol [Symbicort 160-4.5 MCG] 2 puff INH BID 09/09/16 [History] Lactobacillus Combination No.4 [Probiotic] 1 cap PO BID@09/09/16 [History] Lactulose [Generlac] 20 gm PO TID PRN 09/09/16 [History] Furosemide [Lasix] 40 mg PO BID@0700,199904/27/17 [History] Metoprolol Succinate [Toprol XL] 25 mg PO DAILY@199904/27/17 [History] Albuterol/Ipratropium [DuoNeb 3.0-0.5 MG/3 ML] 3 ml NEB BID 10/11/17 [History] Magnesium Oxide 400 mg PO DAILY 11/13/17 [History] Albuterol [Proventil] 2.5 mg NEB Q4H PRN 12/09/17 [History] Cyanocobalamin (Vitamin B12) [Vitamin B12] 1,000 mcg PO DAILY tablet 12/09/17 [ Rx] Sennosides/Docusate Sodium [Senna-Docusate Sodium Tablet] 1 tab PO BID@0700, 1700 12/09/17 [History] Acetaminophen [Tylenol] 650 mg PO TID 04/11/18 [History] Cranberry Fruit Extract [Cranberry] 425 mg PO DAILY 04/11/18 [History] D-Mannose 500 mg PO DAILY 04/11/18 [History] Multivitamin [Daily Multiple Vitamin] 1 tab PO DAILY 04/11/18 [History] Sertraline [Zoloft] 25 mg PO DAILY 04/11/18 [History] Warfarin [Coumadin] 2.5 mg PO MOWEFR 04/11/18 [History] Warfarin [Coumadin] 5 mg PO SUTUTHSA 04/11/18 [History] Azithromycin [Zithromax] 250 mg PO DAILY #2 tablet 04/14/18 [Rx] ED ROS GENERAL - Review of Systems Review Of Systems: See Below ED EXAM, SEPSIS - Physical Exam Exam: See Below Respiratory/Chest: No Respiratory Distress, Lungs Clear, Normal Breath Sounds, No Accessory Muscle Use Cardiovascular: Normal Peripheral Pulses, Regular Rate, Rhythm, No Edema, No Murmur Neurological: Alert, Oriented, CN II-XII Intact, Normal Cognition, Normal Gait, Normal Reflexes, No Motor/Sensory Deficits Course - Vital Signs Last Recorded V/S: Last Vital Signs Temp 36.4 C 04/14/18 05:59 Pulse 75 04/14/18 05:59 Resp 20 04/14/18 05:59 BP 111/64 04/14/18 05:59 Pulse Ox 94 L 04/14/18 05:59 - Orders/Labs/Meds Labs: Laboratory Tests 04/11/18 04/11/18 04/11/18 Range/Units 17:44 17:52 17:52 WBC 15.6 H (4.0-10.0) x10^3/uL RBC 4.27 L (4.5-6.0) x10^6/uL Hgb 13.6 L D (14.0-18.0) g/dL Hct 42.1 (40.0-52.0) % MCV 98.6 H D (78.0-93.0) fL MCH 31.9 (26.0-32.0) pg MCHC 32.3 (32.0-36.0) g/dL RDW Coeff of Lety 14.6 (10.0-15.0) % Plt Count 319 D (130-400) x10^3/uL Neut % (Auto) 82.6 H (50.0-80.0) % Lymph % (Auto) 9.1 L (25.0-50.0) % [place]ley % (Auto) 7.9 (2.0-11.0) % Eos % (Auto) 0.1 (0.0-4.0) % Baso % (Auto) 0.3 (0.2-1.2) % Sodium 136 (136-145) mmol/L Potassium 4.2 (3.5-5.1) mmol/L Chloride 99 (98-107) mmol/L Carbon Dioxide 26 (21-32) mmol/L Anion Gap 15.2 (10-20) mmol/L BUN 39 H (7-18) mg/dL Creatinine 1.5 H (0.70-1.30) mg/dL Est Cr Clr Drug Dosing TNP Estimated GFR (MDRD) 45 Glucose 182 H (74-106) mg/dL Lactic Acid (0.4-2.0) mmol/L Calcium 9.6 (8.5-10.1) mg/dL Corrected Calcium 10.16 H (8.5-10.1) mg/dL Magnesium 1.8 (1.8-2.4) mg/dL Total Bilirubin 0.7 (0.2-1.0) mg/dL AST 29 (15-37) U/L ALT 28 (16-63) U/L Alkaline Phosphatase 104 (46-116) U/L C-Reactive Protein 19.4 H (<=0.9) mg/dL NT-Pro-B Natriuret Pep (<=450) pg/mL Total Protein 7.9 (6.4-8.2) g/dL Albumin 3.3 L (3.4-5.0) g/dL Globulin 4.6 Albumin/Globulin Ratio 0.72 Urine Color Yellow (YELLOW) Urine Appearance Cloudy H (CLEAR) Urine pH 7.5 (5.0-8.0) Ur Specific [place] 1.015 Urine Protein Trace H (NEGATIVE) mg/dL Urine Glucose (UA) Negative (NEGATIVE) mg/dL Urine Ketones Negative (NEGATIVE) mg/dL Urine Occult Blood Small H (NEGATIVE) Urine Nitrite Positive H (NEGATIVE) Urine Bilirubin Negative (NEGATIVE) Urine Urobilinogen 0.2 (0.2) EU/dL Ur Leukocyte Esterase Large H (NEGATIVE) Urine RBC 0-5 (NOT SEEN) /HPF Urine WBC 5-10 H (NOT SEEN) /HPF Ur Squamous Epith Cells Not seen (NEGATIVE) /HPF Urine Bacteria Moderate H (NEGATIVE) /HPF Urine Mucus Rare H (NEGATIVE) /LPF 04/11/18 04/11/18 Range/Units 17:52 17:52 WBC (4.0-10.0) x10^3/uL RBC (4.5-6.0) x10^6/uL Hgb (14.0-18.0) g/dL Hct (40.0-52.0) % MCV (78.0-93.0) fL MCH (26.0-32.0) pg MCHC (32.0-36.0) g/dL RDW Coeff of Lety (10.0-15.0) % Plt Count (130-400) x10^3/uL Neut % (Auto) (50.0-80.0) % Lymph % (Auto) (25.0-50.0) % [place] % (Auto) (2.0-11.0) % Eos % (Auto) (0.0-4.0) % Baso % (Auto) (0.2-1.2) % Sodium (136-145) mmol/L Potassium (3.5-5.1) mmol/L Chloride (98-107) mmol/L Carbon Dioxide (21-32) mmol/L Anion Gap (10-20) mmol/L BUN (7-18) mg/dL Creatinine (0.70-1.30) mg/dL Est Cr Clr Drug Dosing Estimated GFR (MDRD) Glucose (74-106) mg/dL Lactic Acid 2.7 H* (0.4-2.0) mmol/L Calcium (8.5-10.1) mg/dL Corrected Calcium (8.5-10.1) mg/dL Magnesium (1.8-2.4) mg/dL Total Bilirubin (0.2-1.0) mg/dL AST (15-37) U/L ALT (16-63) U/L Alkaline Phosphatase (46-116) U/L C-Reactive Protein (<=0.9) mg/dL NT-Pro-B Natriuret Pep 1562 H (<=450) pg/mL Total Protein (6.4-8.2) g/dL Albumin (3.4-5.0) g/dL Globulin Albumin/Globulin Ratio Urine Color (YELLOW) Urine Appearance (CLEAR) Urine pH (5.0-8.0) Ur Specific [place] Urine Protein (NEGATIVE) mg/dL Urine Glucose (UA) (NEGATIVE) mg/dL Urine Ketones (NEGATIVE) mg/dL Urine Occult Blood (NEGATIVE) Urine Nitrite (NEGATIVE) Urine Bilirubin (NEGATIVE) Urine Urobilinogen (0.2) EU/dL Ur Leukocyte Esterase (NEGATIVE) Urine RBC (NOT SEEN) /HPF Urine WBC (NOT SEEN) /HPF Ur Squamous Epith Cells (NEGATIVE) /HPF Urine Bacteria (NEGATIVE) /HPF Urine Mucus (NEGATIVE) /LPF Meds: Medications Discontinued Medications Generic Name Dose Route Start Last Admin Trade Name Freq PRN Reason Stop Dose Admin Acetaminophen 650 mg 04/11/18 21:20 04/12/18 02:44 Tylenol PO 650 mg Q4H PRN Administration Pain (Mild 1-3)/fever Acetaminophen 650 mg 04/12/18 08:00 04/14/18 08:03 Tylenol PO 650 mg TID NATALYA Administration Albuterol 2.5 mg 04/11/18 21:22 Proventil Neb Soln NEB Q4H PRN Shortness of Breath Albuterol/Ipratropium 3 ml 04/12/18 08:00 04/12/18 07:14 Duoneb 3.0-0.5 Mg/3 Ml NEB 3 ml BID NATALYA Administration Albuterol/Ipratropium 3 ml 04/12/18 20:00 04/14/18 06:01 Duoneb 3.0-0.5 Mg/3 Ml NEB 3 ml BIDRT NATALYA Administration Allopurinol 150 mg 04/12/18 08:00 04/14/18 08:03 Zyloprim PO 150 mg DAILY NATALYA Administration Arformoterol Tartrate 15 mcg 04/12/18 09:00 04/14/18 08:03 Brovana INH 15 mcg BID NATALYA Administration Azithromycin 500 mg 04/12/18 12:00 04/14/18 08:03 Zithromax PO 500 mg DAILY NATALYA Administration Bisacodyl 5 mg 04/11/18 21:22 Dulcolax PO DAILY PRN Constipation Budesonide 1 mg 04/12/18 09:00 04/14/18 06:01 Pulmicort INH 1 mg BIDRT NATALYA Administration Ceftriaxone Sodium 1 gm 04/11/18 17:57 04/11/18 18:20 Rocephin IVPUSH 04/11/18 17:58 1 gm STAT ONE Administration Ceftriaxone Sodium 1 gm 04/12/18 18:00 04/13/18 18:15 Rocephin IVPUSH 1 gm Q24H NATALYA Administration Cranberry 500 mg 04/12/18 08:00 04/14/18 08:03 Cranberry PO 500 mg DAILY NATALYA Administration Cyanocobalamin 1,000 mcg 04/12/18 08:00 04/14/18 08:03 Vitamin B12 PO 1,000 mcg DAILY NATALYA Administration Diltiazem HCl 180 mg 04/12/18 08:00 04/14/18 08:03 Cardizem Cd PO 180 mg DAILY NATALYA Administration Glycopyrrolate 15.6 mcg 04/12/18 08:45 04/14/18 06:02 Seebri Neohaler IH 15.6 mcg BIDRT NATALYA Administration Sodium Chloride 500 mls @ 100 mls/hr 04/11/18 19:00 04/11/18 20:33 Normal Saline IV 100 mls/hr ASDIRECTED NATALYA Administration Ciprofloxacin/Dextrose 400 mg/ 200 mls @ 200 mls/hr 04/11/18 20:00 04/12/18 07:51 Premix IV 200 mls/hr Q12H NATALYA Administration Lactobacillus Rhamnosus 1 cap 04/11/18 22:00 04/13/18 18:15 Culturelle PO 1 cap BID@1000,1800 NATALYA Administration Lactulose 20 gm 04/12/18 08:00 Chronulac PO TID PRN Constipation Lactulose 20 gm 04/14/18 09:33 Cephulac PO TID PRN Constipation Magnesium Oxide 400 mg 04/12/18 08:00 04/14/18 08:03 Magnesium Oxide PO 400 mg DAILY NATALYA Administration Metoprolol Succinate 25 mg 04/12/18 20:00 04/13/18 20:01 Toprol Xl PO 25 mg DAILY@2000 NATALYA Administration Multivitamins/Minerals 1 tab 04/12/18 08:00 04/14/18 08:03 Thera M Plus PO 1 tab DAILY NATALYA Administration D-Mannose [D-Mannose 1 cap 04/12/18 08:00 04/14/18 08:04 ] PO Not Given DAILY NATALYA Fluticasone/Salmeterol 1 puff 04/11/18 21:45 04/12/18 09:35 Fluticasone-Salmeterol 232-14 Mcg Powder Inha INH Not Given BID [facility] Senna/Docusate Sodium 1 tab 04/12/18 07:00 04/14/18 06:01 Senna Plus PO 1 tab BID@0700,1700 NATALYA Administration Sertraline HCl 25 mg 04/12/18 08:00 04/14/18 08:03 Zoloft PO 25 mg DAILY NATALYA Administration Tiotropium [place] 18 mcg 04/12/18 07:00 04/12/18 09:43 Spiriva Handihaler INH Not Given DAILY@0700 [facility] Warfarin Sodium 2.5 mg 04/12/18 20:00 04/12/18 20:02 Coumadin PO 2.5 mg MoWeFr@1999 [facility] Administration Warfarin Sodium 5 mg 04/13/18 20:00 04/13/18 20:01 Coumadin PO 5 mg [id number]@1999 [facility] Administration Warfarin Sodium 5 mg 04/12/18 07:31 04/12/18 07:51 Coumadin PO 04/12/18 07:32 5 mg ONETIME ONE Administration - Re-Assessments/Exams Free Text/Narrative Re-Assessment/Exam: 1900 Assumed care at 1900 for Brittany Lanier at 1700. Please refer to his documentation. Departure - Departure Time of Disposition: 20:10 Disposition: Admitted As Inpatient 64 Clinical Impression: Septicemia - Discharge Information <Brittany Feldman - Last Filed: 04/15/18 09:15> ED HPI GENERAL MEDICAL PROBLEM - General Source of Information: Reports: Patient, EMS History Limitations: Reports: No Limitations - History of Present Illness INITIAL COMMENTS - FREE TEXT/NARRATIVE: D did talk to Dr. Marlin Monique regarding this patient. I did do the blood work and the chest x-ray. The patient does have an elevated lactic acid. I then talked to Eliel Mccain and he took over the patient for me. Onset: Today, Sudden Past Medical History HEENT History: Reports: Hard of Hearing, Impaired Vision Cardiovascular History: Reports: Afib, Aneurysm, Heart Failure, High Cholesterol , Hypertension, Pulmonary Hypertension, Other (See Below) Other Cardiovascular History: AAA Respiratory History: Reports: COPD, PE, SOB Other Respiratory History: hypoxia, oxygen dependent Gastrointestinal History: Reports: Chronic Constipation Genitourinary History: Reports: Hydronephrosis, Renal Calculus, UTI, Recurrent Other Genitourinary History: kidney stones Musculoskeletal History: Reports: Gout, Other (See Below) Other Musculoskeletal History: collapsed vertebra, compression fracture of spine Neurological History: Reports: Other (See Below) Other Neuro History: mild cognitive impairment Psychiatric History: Reports: Other (See Below) Other Psychiatric History: adjustment disorder Endocrine/Metabolic History: Reports: None Hematologic History: Reports: Other (See Below) Other Hematologic History: coumadin therapy Immunologic History: Reports: None Oncologic (Cancer) History: Reports: Bladder Dermatologic History: Reports: Other (See Below) Other Dermatologic History: lymphadenopathy - Infectious Disease History Infectious Disease History: Reports: None - Past Surgical History HEENT Surgical History: Reports: Cataract Surgery Other HEENT Surgeries/Procedures: Unspecific Eye surgery Cardiovascular Surgical History: Reports: AAA Repair Other Cardiovascular Surgeries/Procedures: endoluminal aortic stent Respiratory Surgical History: Reports: None GI Surgical History: Reports: Hernia, Inguinal Other GI Surgeries/Procedures: Endoluminal Aortic Stent Male Surgical History: Reports: Cystectomy, Renal Calculus, TURP- Transurethral Resection of Prostate Other Male Surgeries/Procedures: UROSTOMY Dermatological Surgical History: Reports: None Social & Family History - Family History Cardiac: Reports: CAD Respiratory: Reports: None GI: Reports: None : Reports: None OBGYN: Reports: None Musculoskeletal: Reports: Arthritis Neurological: Reports: None Psychiatric: Reports: None Endocrine/Metabolic: Reports: Diabetes, type II Hematologic: Reports: None Immunologic: Reports: None Oncologic: Reports: Bladder, Breast, Colon, Skin - Caffeine Use Caffeine Use: Reports: None - Living Situation & Occupation Living situation: Reports: , Alone Occupation: Retired ED ROS GENERAL - Review of Systems Review Of Systems: ROS reveals no pertinent complaints other than HPI. ED EXAM, SEPSIS - Physical Exam Exam: See Below Exam Limited By: No Limitations General Appearance: Alert, Moderate Distress Respiratory/Chest: Other (More coarse on the right. On nasal cannula. 4L. ) Cardiovascular: Normal Peripheral Pulses, Regular Rate, Rhythm, No Edema, No Gallop, No JVD, No Murmur, No Rub Course - Vital Signs Last Recorded V/S: Last Vital Signs Temp 36.4 C 04/14/18 05:59 Pulse 75 04/14/18 05:59 Resp 20 04/14/18 05:59 BP 111/64 04/14/18 05:59 Pulse Ox 94 L 04/14/18 05:59 - Orders/Labs/Meds Labs: Laboratory Tests 04/11/18 04/11/18 04/11/18 Range/Units 17:44 17:52 17:52 WBC 15.6 H (4.0-10.0) x10^3/uL RBC 4.27 L (4.5-6.0) x10^6/uL Hgb 13.6 L D (14.0-18.0) g/dL Hct 42.1 (40.0-52.0) % MCV 98.6 H D (78.0-93.0) fL MCH 31.9 (26.0-32.0) pg MCHC 32.3 (32.0-36.0) g/dL RDW Coeff of Lety 14.6 (10.0-15.0) % Plt Count 319 D (130-400) x10^3/uL Neut % (Auto) 82.6 H (50.0-80.0) % Lymph % (Auto) 9.1 L (25.0-50.0) % [place] % (Auto) 7.9 (2.0-11.0) % Eos % (Auto) 0.1 (0.0-4.0) % Baso % (Auto) 0.3 (0.2-1.2) % Sodium 136 (136-145) mmol/L Potassium 4.2 (3.5-5.1) mmol/L Chloride 99 (98-107) mmol/L Carbon Dioxide 26 (21-32) mmol/L Anion Gap 15.2 (10-20) mmol/L BUN 39 H (7-18) mg/dL Creatinine 1.5 H (0.70-1.30) mg/dL Est Cr Clr Drug Dosing TNP Estimated GFR (MDRD) 45 Glucose 182 H (74-106) mg/dL Lactic Acid (0.4-2.0) mmol/L Calcium 9.6 (8.5-10.1) mg/dL Corrected Calcium 10.16 H (8.5-10.1) mg/dL Magnesium 1.8 (1.8-2.4) mg/dL Total Bilirubin 0.7 (0.2-1.0) mg/dL AST 29 (15-37) U/L ALT 28 (16-63) U/L Alkaline Phosphatase 104 (46-116) U/L C-Reactive Protein 19.4 H (<=0.9) mg/dL NT-Pro-B Natriuret Pep (<=450) pg/mL Total Protein 7.9 (6.4-8.2) g/dL Albumin 3.3 L (3.4-5.0) g/dL Globulin 4.6 Albumin/Globulin Ratio 0.72 Urine Color Yellow (YELLOW) Urine Appearance Cloudy H (CLEAR) Urine pH 7.5 (5.0-8.0) Ur Specific [place] 1.015 Urine Protein Trace H (NEGATIVE) mg/dL Urine Glucose (UA) Negative (NEGATIVE) mg/dL Urine Ketones Negative (NEGATIVE) mg/dL Urine Occult Blood Small H (NEGATIVE) Urine Nitrite Positive H (NEGATIVE) Urine Bilirubin Negative (NEGATIVE) Urine Urobilinogen 0.2 (0.2) EU/dL Ur Leukocyte Esterase Large H (NEGATIVE) Urine RBC 0-5 (NOT SEEN) /HPF Urine WBC 5-10 H (NOT SEEN) /HPF Ur Squamous Epith Cells Not seen (NEGATIVE) /HPF Urine Bacteria Moderate H (NEGATIVE) /HPF Urine Mucus Rare H (NEGATIVE) /LPF 04/11/18 04/11/18 Range/Units 17:52 17:52 WBC (4.0-10.0) x10^3/uL RBC (4.5-6.0) x10^6/uL Hgb (14.0-18.0) g/dL Hct (40.0-52.0) % MCV (78.0-93.0) fL MCH (26.0-32.0) pg MCHC (32.0-36.0) g/dL RDW Coeff of Lety (10.0-15.0) % Plt Count (130-400) x10^3/uL Neut % (Auto) (50.0-80.0) % Lymph % (Auto) (25.0-50.0) % [place] % (Auto) (2.0-11.0) % Eos % (Auto) (0.0-4.0) % Baso % (Auto) (0.2-1.2) % Sodium (136-145) mmol/L Potassium (3.5-5.1) mmol/L Chloride (98-107) mmol/L Carbon Dioxide (21-32) mmol/L Anion Gap (10-20) mmol/L BUN (7-18) mg/dL Creatinine (0.70-1.30) mg/dL Est Cr Clr Drug Dosing Estimated GFR (MDRD) Glucose (74-106) mg/dL Lactic Acid 2.7 H* (0.4-2.0) mmol/L Calcium (8.5-10.1) mg/dL Corrected Calcium (8.5-10.1) mg/dL Magnesium (1.8-2.4) mg/dL Total Bilirubin (0.2-1.0) mg/dL AST (15-37) U/L ALT (16-63) U/L Alkaline Phosphatase (46-116) U/L C-Reactive Protein (<=0.9) mg/dL NT-Pro-B Natriuret Pep 1562 H (<=450) pg/mL Total Protein (6.4-8.2) g/dL Albumin (3.4-5.0) g/dL Globulin Albumin/Globulin Ratio Urine Color (YELLOW) Urine Appearance (CLEAR) Urine pH (5.0-8.0) Ur Specific [place] Urine Protein (NEGATIVE) mg/dL Urine Glucose (UA) (NEGATIVE) mg/dL Urine Ketones (NEGATIVE) mg/dL Urine Occult Blood (NEGATIVE) Urine Nitrite (NEGATIVE) Urine Bilirubin (NEGATIVE) Urine Urobilinogen (0.2) EU/dL Ur Leukocyte Esterase (NEGATIVE) Urine RBC (NOT SEEN) /HPF Urine WBC (NOT SEEN) /HPF Ur Squamous Epith Cells (NEGATIVE) /HPF Urine Bacteria (NEGATIVE) /HPF Urine Mucus (NEGATIVE) /LPF
--- NOTE | 2018-04-11 18:39 | CR ---
[id number] RAD/RAD Chest PA or AP 1V EXAM: FRONTAL CHEST INDICATION: Shortness of breath. COMPARISON: December 25, 2017. DISCUSSION: There is stable cardiomegaly with increased mild central vascular congestion. Small bilateral pleural effusions, increased on the right and stable on the left. There is associated volume loss in both lung bases which could obscure early infiltrates. Chronic left midlung scarring. Lower thoracic vertebroplasty. IMPRESSION: 1. Mild congestive heart failure. John Schneider MD 04/11/18 [id number] Thank you for allowing us to participate in the care of your patient.
[2018-04-11 18:42] LABS: ANION GAP 15.2 mmol/L (10-20); CHLORIDE,CL 99 mmol/L (98-107); SODIUM,NA 136 mmol/L (136-145)
[2018-04-11] MEDS: Sodium Chloride 0.9% 500 ML IV SCH ×2 (19:15→20:33)
[2018-04-11] MEDS: Ciprofloxacin in D5W 400 MG in Premix Bag 1 BAG IV SCH ×2 (20:49)
[2018-04-11] MEDS ORDERED: Acetaminophen 325 MG Tab PO PRN (21:20)
[2018-04-11] MEDS ORDERED: Albuterol 0.083% 2.5 MG/3 ML Neb Soln NEB PRN (21:22)
[2018-04-11] MEDS ORDERED: Bisacodyl 5 MG Tab PO PRN (21:22)
--- NOTE | 2018-04-11 21:31 | PCM.HP ---
H&P History of Present Illness - General Date of Service: 04/11/18 Admit Problem/Dx: Admission Diagnosis/Problem Admission Diagnosis/Problem UTI, Urinary tract infectious disease Source of Information: Patient, [facility] Records History Limitations: Reports: No Limitations - History of Present Illness Initial Comments - Free Text/Narative: Patient told me he started feeling week yesterday at noon, didn't come out for meals today. Nurse called that his sats were 86-88 % on his normal 3 L. He didn't feel SOB at that time but had been having cold symptoms. Around 5 pm he spiked a 101 temp so came to the ER for eval. Had been treated with 7 days of cipro last month for UTI has had multiple UTI's with pseudomonas. 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 He told me they changed his ostomy yesterday. He denies any abdominal pain or nausea. He isn't coughing up anything but maybe is a little SOB now. He has CHF with mitral regurg and also COPD. He got his nebs today. He denies any trouble swallowing food or choking and coughing while eating. Onset of Symptoms: Reports: Gradual Duration of Symptoms: Reports: Day(s): Associated Symptoms: Reports: Cough, Fever/Chills, Loss of Appetite, Malaise, Weakness. Denies: Nausea/Vomiting - Related Data Allergies/Adverse Reactions: Allergies Allergy/AdvReac Type Severity Reaction Status Date / Time No Known Allergies Allergy Verified 01/26/18 18:04 Home Medications: Home Meds Allopurinol [Zyloprim] 150 mg PO DAILY 09/10/14 [History] Tiotropium [Spiriva HandiHaler] 1 puff PO DAILY@0700 12/24/14 [History] Diltiazem HCl [Cartia Xt] 180 mg PO DAILY 07/04/16 [History] Bisacodyl [Dulcolax] 5 mg PO DAILY PRN 07/07/16 [History] Budesonide/Formoterol [Symbicort 160-4.5 MCG] 2 puff INH BID 09/09/16 [History] Lactobacillus Combination No.4 [Probiotic] 1 cap PO BID@09/09/16 [History] Lactulose [Generlac] 20 gm PO TID PRN 09/09/16 [History] Furosemide [Lasix] 40 mg PO BID@0700,199904/27/17 [History] Metoprolol Succinate [Toprol XL] 25 mg PO DAILY@199904/27/17 [History] Albuterol/Ipratropium [DuoNeb 3.0-0.5 MG/3 ML] 3 ml NEB BID 10/11/17 [History] Magnesium Oxide 400 mg PO DAILY 11/13/17 [History] Albuterol [Proventil] 2.5 mg NEB Q4H PRN 12/09/17 [History] Cyanocobalamin (Vitamin B12) [Vitamin B12] 1,000 mcg PO DAILY tablet 12/09/17 [ Rx] Sennosides/Docusate Sodium [Senna-Docusate Sodium Tablet] 1 each PO BID@0700, 1700 12/09/17 [History] Acetaminophen [Tylenol] 650 mg PO TID 04/11/18 [History] Cranberry Fruit Extract [Cranberry] 1 cap PO DAILY 04/11/18 [History] D-Mannose 1 cap PO DAILY 04/11/18 [History] Multivitamin [Daily Multiple Vitamin] 1 each PO DAILY 04/11/18 [History] Sertraline [Zoloft] 25 mg PO DAILY 04/11/18 [History] Warfarin [Coumadin] 2.5 mg PO MOWEFR 04/11/18 [History] Warfarin [Coumadin] 5 mg PO SUTUTHSA 04/11/18 [History] Past Medical History HEENT History: Reports: Hard of Hearing, Impaired Vision Cardiovascular History: Reports: Afib, Aneurysm, Heart Failure, High Cholesterol , Hypertension, Pulmonary Hypertension, Other (See Below) Other Cardiovascular History: AAA Respiratory History: Reports: COPD, PE, SOB Other Respiratory History: hypoxia, oxygen dependent Gastrointestinal History: Reports: Chronic Constipation Genitourinary History: Reports: Hydronephrosis, Renal Calculus, UTI, Recurrent Other Genitourinary History: kidney stones Musculoskeletal History: Reports: Gout, Other (See Below) Other Musculoskeletal History: collapsed vertebra, compression fracture of spine Neurological History: Reports: Other (See Below) Other Neuro History: mild cognitive impairment Psychiatric History: Reports: Other (See Below) Other Psychiatric History: adjustment disorder Endocrine/Metabolic History: Reports: None Hematologic History: Reports: Other (See Below) Other Hematologic History: coumadin therapy Immunologic History: Reports: None Oncologic (Cancer) History: Reports: Bladder Dermatologic History: Reports: Other (See Below) Other Dermatologic History: lymphadenopathy - Infectious Disease History Infectious Disease History: Reports: None - Past Surgical History HEENT Surgical History: Reports: Cataract Surgery Other HEENT Surgeries/Procedures: Unspecific Eye surgery Cardiovascular Surgical History: Reports: AAA Repair Other Cardiovascular Surgeries/Procedures: endoluminal aortic stent Respiratory Surgical History: Reports: None GI Surgical History: Reports: Hernia, Inguinal Other GI Surgeries/Procedures: Endoluminal Aortic Stent Male Surgical History: Reports: Cystectomy, Renal Calculus, TURP- Transurethral Resection of Prostate Other Male Surgeries/Procedures: UROSTOMY Dermatological Surgical History: Reports: None Social & Family History - Family History Cardiac: Reports: CAD Respiratory: Reports: None GI: Reports: None : Reports: None OBGYN: Reports: None Musculoskeletal: Reports: Arthritis Neurological: Reports: None Psychiatric: Reports: None Endocrine/Metabolic: Reports: Diabetes, type II Hematologic: Reports: None Immunologic: Reports: None Oncologic: Reports: Bladder, Breast, Colon, Skin - Tobacco Use Smoking Status *Q: Former Smoker Used Tobacco, but Quit: Yes Month/Year Tobacco Last Used: 03/1973 Second Hand Smoke Exposure: No - Caffeine Use Caffeine Use: Reports: None - Recreational Drug Use Recreational Drug Use: No - Living Situation & Occupation Living situation: Reports: , Alone Occupation: Retired H&P Review of Systems - Review of Systems: Review Of Systems: See Below General: Reports: Fever, Weakness, Fatigue HEENT: Reports: Sinus Congestion. Denies: Dysphasia Pulmonary: Reports: Shortness of Breath, Cough. Denies: Wheezing, Pleuritic Chest Pain, Sputum, Hemoptysis Cardiovascular: Denies: Chest Pain, Edema Gastrointestinal: Reports: Decreased Appetite. Denies: Abdominal Pain, Black Stool, Constipation, Difficulty Swallowing, Distension Genitourinary: Denies: Dysuria, Frequency, Burning, Urgency, Flank Pain Musculoskeletal: Reports: No Symptoms Skin: Reports: No Symptoms Psychiatric: Reports: No Symptoms Neurological: Reports: No Symptoms Hematologic/Lymphatic: Reports: Anemia Immunologic: Reports: No Symptoms Exam - Exam Exam: See Below - Vital Signs Vital Signs: Last Vital Signs Temp 99.5 F 04/11/18 20:32 Pulse 95 04/11/18 20:32 Resp 18 04/11/18 20:32 BP 110/68 04/11/18 20:32 Pulse Ox 92 L 04/11/18 20:32 Weight: 89.811 kg - Exam Quality Assessment: Supplemental Oxygen General: Alert, Oriented HEENT: Conjunctiva Clear, EACs Clear, EOMI, Hearing Intact Neck: Supple, Trachea Midline. No: Lymphadenopathy Lungs: Normal Respiratory Effort, Decreased Breath Sounds. No: Crackles, Rales , Rhonchi, Rub, Wheezing Cardiovascular: Irregular Rhythm, Systolic Murmur GI/Abdominal Exam: Normal Bowel Sounds, Soft, Non-Tender, Other (urostomy in place) Back Exam: Normal Inspection, Full Range of Motion. No: CVA Tenderness (L), CVA Tenderness (R) Extremities: Normal Inspection, Non-Tender, No Pedal Edema Skin: Warm, Dry, Intact Neuro Extensive - Mental Status: Alert, Oriented x3, Normal Mood/Affect, Normal Cognition, Memory Intact Psychiatric: Alert, Normal Affect, Normal Mood - Patient Data Lab Results Last 24 hrs: Laboratory Results - last 24 hr 04/11/18 04/11/18 04/11/18 Range/Units 17:44 17:52 17:52 WBC 15.6 H (4.0-10.0) x10^3/uL RBC 4.27 L (4.5-6.0) x10^6/uL Hgb 13.6 L D (14.0-18.0) g/dL Hct 42.1 (40.0-52.0) % MCV 98.6 H D (78.0-93.0) fL MCH 31.9 (26.0-32.0) pg MCHC 32.3 (32.0-36.0) g/dL RDW Coeff of Lety 14.6 (10.0-15.0) % Plt Count 319 D (130-400) x10^3/uL Neut % (Auto) 82.6 H (50.0-80.0) % Lymph % (Auto) 9.1 L (25.0-50.0) % [place] % (Auto) 7.9 (2.0-11.0) % Eos % (Auto) 0.1 (0.0-4.0) % Baso % (Auto) 0.3 (0.2-1.2) % Sodium 136 (136-145) mmol/L Potassium 4.2 (3.5-5.1) mmol/L Chloride 99 (98-107) mmol/L Carbon Dioxide 26 (21-32) mmol/L Anion Gap 15.2 (10-20) mmol/L BUN 39 H (7-18) mg/dL Creatinine 1.5 H (0.70-1.30) mg/dL Est Cr Clr Drug Dosing TNP Estimated GFR (MDRD) 45 Glucose 182 H (74-106) mg/dL Lactic Acid (0.4-2.0) mmol/L Calcium 9.6 (8.5-10.1) mg/dL Corrected Calcium 10.16 H (8.5-10.1) mg/dL Magnesium 1.8 (1.8-2.4) mg/dL Total Bilirubin 0.7 (0.2-1.0) mg/dL AST 29 (15-37) U/L ALT 28 (16-63) U/L Alkaline Phosphatase 104 (46-116) U/L C-Reactive Protein 19.4 H (<=0.9) mg/dL NT-Pro-B Natriuret Pep (<=450) pg/mL Total Protein 7.9 (6.4-8.2) g/dL Albumin 3.3 L (3.4-5.0) g/dL Globulin 4.6 Albumin/Globulin Ratio 0.72 Urine Color Yellow (YELLOW) Urine Appearance Cloudy H (CLEAR) Urine pH 7.5 (5.0-8.0) Ur Specific [place] 1.015 Urine Protein Trace H (NEGATIVE) mg/dL Urine Glucose (UA) Negative (NEGATIVE) mg/dL Urine Ketones Negative (NEGATIVE) mg/dL Urine Occult Blood Small H (NEGATIVE) Urine Nitrite Positive H (NEGATIVE) Urine Bilirubin Negative (NEGATIVE) Urine Urobilinogen 0.2 (0.2) EU/dL Ur Leukocyte Esterase Large H (NEGATIVE) Urine RBC 0-5 (NOT SEEN) /HPF Urine WBC 5-10 H (NOT SEEN) /HPF Ur Squamous Epith Cells Not seen (NEGATIVE) /HPF Urine Bacteria Moderate H (NEGATIVE) /HPF Urine Mucus Rare H (NEGATIVE) /LPF 04/11/18 04/11/18 Range/Units 17:52 17:52 WBC (4.0-10.0) x10^3/uL RBC (4.5-6.0) x10^6/uL Hgb (14.0-18.0) g/dL Hct (40.0-52.0) % MCV (78.0-93.0) fL MCH (26.0-32.0) pg MCHC (32.0-36.0) g/dL RDW Coeff of Lety (10.0-15.0) % Plt Count (130-400) x10^3/uL Neut % (Auto) (50.0-80.0) % Lymph % (Auto) (25.0-50.0) % [place] % (Auto) (2.0-11.0) % Eos % (Auto) (0.0-4.0) % Baso % (Auto) (0.2-1.2) % Sodium (136-145) mmol/L Potassium (3.5-5.1) mmol/L Chloride (98-107) mmol/L Carbon Dioxide (21-32) mmol/L Anion Gap (10-20) mmol/L BUN (7-18) mg/dL Creatinine (0.70-1.30) mg/dL Est Cr Clr Drug Dosing Estimated GFR (MDRD) Glucose (74-106) mg/dL Lactic Acid 2.7 H* (0.4-2.0) mmol/L Calcium (8.5-10.1) mg/dL Corrected Calcium (8.5-10.1) mg/dL Magnesium (1.8-2.4) mg/dL Total Bilirubin (0.2-1.0) mg/dL AST (15-37) U/L ALT (16-63) U/L Alkaline Phosphatase (46-116) U/L C-Reactive Protein (<=0.9) mg/dL NT-Pro-B Natriuret Pep 1562 H (<=450) pg/mL Total Protein (6.4-8.2) g/dL Albumin (3.4-5.0) g/dL Globulin Albumin/Globulin Ratio Urine Color (YELLOW) Urine Appearance (CLEAR) Urine pH (5.0-8.0) Ur Specific [place] Urine Protein (NEGATIVE) mg/dL Urine Glucose (UA) (NEGATIVE) mg/dL Urine Ketones (NEGATIVE) mg/dL Urine Occult Blood (NEGATIVE) Urine Nitrite (NEGATIVE) Urine Bilirubin (NEGATIVE) Urine Urobilinogen (0.2) EU/dL Ur Leukocyte Esterase (NEGATIVE) Urine RBC (NOT SEEN) /HPF Urine WBC (NOT SEEN) /HPF Ur Squamous Epith Cells (NEGATIVE) /HPF Urine Bacteria (NEGATIVE) /HPF Urine Mucus (NEGATIVE) /LPF Result Diagrams: 04/11/18 17:52 04/11/18 17:52 Joce Results Last 24 hrs: Microbiology 04/11/18 17:44 Influenza Type A Antigen Screen - Final Nasal Aspirate, Unspecified NEGATIVE INFLUENZA A VIRUS AG Influenza Type B Antigen Screen - Final NEGATIVE INFLUENZA B VIRUS AG - Problem List (1) Sepsis SNOMED Code(s): 80993639 ICD Code: A41.9 - SEPSIS, UNSPECIFIED ORGANISM Status: Acute Current Visit: Yes Problem Details: Fever, tachycardia, leukocytosis source probably another UTI but I think that there is likely a new infiltrate on CXR also. For now did get IV rocephin probably around 6 pm in ER and was started on IV cipro. Order sputum cultures, blood cultures and urine cultures already pending. He also has a hx of gram positive endocarditis several months ago Qualifiers: Sepsis type: sepsis due to unspecified organism Qualified Code(s): A41.9 - Sepsis, unspecified organism (2) Anemia SNOMED Code(s): 744775684 ICD Code: D64.9 - ANEMIA, UNSPECIFIED Status: Chronic Priority: Medium Current Visit: No Problem Details: hgb actually slightly higher than baseline he is likely dehydrated we will continue to monitor CBC Qualifiers: Anemia type: unspecified type Qualified Code(s): D64.9 - Anemia, unspecified (3) Complication of urostomy SNOMED Code(s): 94788355 ICD Code: N99.528 - OTHER COMP OF INCONTINENT EXTERNAL STOMA OF URINARY TRACT Status: Chronic Priority: Medium Current Visit: No (4) UTI, Urinary tract infectious disease SNOMED Code(s): 58301938 ICD Code: N39.0 - URINARY TRACT INFECTION, SITE NOT SPECIFIED Status: Acute Priority: High Current Visit: No (5) COPD, severe SNOMED Code(s): 910597649 ICD Code: J44.9 - CHRONIC OBSTRUCTIVE PULMONARY DISEASE, UNSPECIFIED Status : Chronic Priority: Medium Current Visit: No Problem Details: Continue oxygen and nebs (6) Chronic anticoagulation SNOMED Code(s): 693987121 ICD Code: Z79.01 - INSPECTOR WEIGHTS AND MEASURES (CURRENT) USE OF ANTICOAGULANTS Status: Chronic Priority: Medium Current Visit: No Problem Details: check an INR (7) Chronic atrial fibrillation SNOMED Code(s): 854757032 ICD Code: I48.2 - CHRONIC ATRIAL FIBRILLATION Status: Chronic Current Visit: No (8) Diastolic heart failure SNOMED Code(s): 047444256 ICD Code: I50.30 - UNSPECIFIED DIASTOLIC (CONGESTIVE) HEART FAILURE Status : Chronic Priority: Medium Current Visit: No Problem Details: Monitor closely for exacerbation only 500 ml of saline will be given for now Qualifiers: Heart failure chronicity: chronic Qualified Code(s): I50.32 - Chronic diastolic (congestive) heart failure (9) History of pulmonary embolus (PE) SNOMED Code(s): 561754761 ICD Code: Z86.711 - PERSONAL HISTORY OF PULMONARY EMBOLISM Status: Chronic Priority: Medium Current Visit: No Problem Details: PE 2004 (10) Mitral regurgitation SNOMED Code(s): 86882418 ICD Code: I34.0 - NONRHEUMATIC MITRAL (VALVE) INSUFFICIENCY Status: Chronic Priority: Medium Current Visit: No Qualifiers: Cardiac valve disease etiology: nonrheumatic Qualified Code(s): I34.0 - Nonrheumatic mitral (valve) insufficiency (11) Pulmonary hypertension SNOMED Code(s): 74539425 ICD Code: I27.2 - OTHER SECONDARY PULMONARY HYPERTENSION * DO NOT USE * Status: Chronic Priority: Medium Current Visit: No Problem List Initiated/Reviewed/Updated: Yes Orders Last 24hrs: Active Orders 24 hr Category Date Time Status Patient Status [ADT] Routine ADT 04/11/18 19:30 Active Dietary Supplements [RC] 0730,1730 Care 04/11/18 19:52 Active Intake and Output [RC] QSHIFT Care 04/11/18 21:20 Ordered Oxygen Therapy [RC] PRN Care 04/11/18 21:20 Ordered Oxygen Therapy, ED [RC] ASDIRECTED Care 04/11/18 17:40 Active VTE/DVT Education [RC] PER UNIT ROUTINE Care 04/11/18 21:20 Ordered Vital Signs [RC] Q4H Care 04/11/18 21:20 Ordered Heart Healthy Diet [DIET] Diet 04/11/18 Breakfast Ordered CULTURE BLOOD [BC] Stat Lab 04/11/18 17:52 Received CULTURE BLOOD [BC] Stat Lab 04/11/18 18:00 Received CULTURE MRSA SURVEY [RM] Routine Lab 04/11/18 20:36 Ordered CULTURE URINE [RM] Stat Lab 04/11/18 18:10 Received INR,PT,PROTHROMBIN TIME [COAG] Routine Lab 04/11/18 21:16 Ordered LACTIC ACID [CHEM] Routine Lab 04/11/18 21:15 Ordered Acetaminophen [Tylenol] Med 04/11/18 21:20 Ordered 650 mg PO Q4H PRN Acetaminophen [Tylenol] Med 04/12/18 08:00 Ordered 650 mg PO TID Albuterol Med 04/11/18 21:22 Ordered 2.5 mg NEB Q4H PRN Albuterol/Ipratropium [DuoNeb 3.0-0.5 MG/3 ML] Med 04/12/18 08:00 Ordered 3 ml NEB BID Allopurinol [Zyloprim] Med 04/12/18 08:00 Ordered 150 mg PO DAILY Bisacodyl [Dulcolax] Med 04/11/18 21:22 Ordered 5 mg PO DAILY PRN Budesonide/Formoterol Med 04/12/18 08:00 Ordered 2 puff INH BID Ciprofloxacin in D5W [Cipro in D5W 400 MG/200 ML] 400 Med 04/11/18 20:00 Active mg Premix Bag 1 bag IV Q12H Cranberry Fruit Extract [Cranberry] Med 04/12/18 08:00 Ordered 1 cap PO DAILY Cyanocobalamin (Vitamin B12) [Vitamin B12] Med 04/12/18 08:00 Ordered 1,000 mcg PO DAILY D-Mannose [D-Mannose] Med 04/12/18 08:00 Ordered 1 cap PO DAILY Diltiazem [Cardizem CD] Med 04/12/18 08:00 Ordered 180 mg PO DAILY Docusate Sodium/Sennosides [Senna Plus] Med 04/12/18 07:00 Ordered 1 each PO BID@0700,1700 Lactobacillus Combination No.4 [Probiotic] Med 04/12/18 10:00 Ordered 1 cap PO BID@10,18 Lactulose [Generlac] Med 04/11/18 21:22 Ordered 20 gm PO TID PRN Magnesium Oxide Med 04/12/18 08:00 Ordered 400 mg PO DAILY Metoprolol Succinate [Toprol XL] Med 04/12/18 20:00 Ordered 25 mg PO DAILY@1999 Multivitamin [Daily Multiple Vitamin] Med 04/12/18 08:00 Ordered 1 each PO DAILY Sertraline [Zoloft] Med 04/12/18 08:00 Ordered 25 mg PO DAILY Sodium Chloride 0.9% [Normal Saline] 500 ml Med 04/11/18 19:00 Active IV ASDIRECTED Tiotropium [Spiriva HandiHaler] Med 04/12/18 07:00 Ordered 1 puff INH DAILY@0700 Warfarin [Coumadin] Med 04/12/18 21:22 Ordered 2.5 mg PO MOWEFR Blood Culture x2 Reflex Set [OM.PC] Stat Oth 04/11/18 17:43 Ordered Resuscitation Status Routine Resus Stat 04/11/18 21:20 Ordered Medication Orders Acetaminophen (Tylenol) 650 mg PO Q4H PRN PRN Reason: Pain (Mild 1-3)/fever Acetaminophen (Tylenol) 650 mg PO TID [facility] Albuterol/Ipratropium (Duoneb 3.0-0.5 Mg/3 Ml) 3 ml NEB BID NATALYA Allopurinol (Zyloprim) 150 mg PO DAILY NATALYA Bisacodyl (Dulcolax) 5 mg PO DAILY PRN PRN Reason: Constipation Cyanocobalamin (Vitamin B12) 1,000 mcg PO DAILY [facility] Diltiazem HCl (Cardizem Cd) 180 mg PO DAILY [facility] Sodium Chloride (Normal Saline) 500 mls @ 100 mls/hr IV ASDIRECTED NATALYA Last Admin: 04/11/18 20:33 Dose: 100 mls/hr Infusion: 04/11/18 20:33 Dose: 100 mls/hr Admin: 04/11/18 19:15 Dose: 100 mls/hr Ciprofloxacin/Dextrose 400 mg/ (Premix) 200 mls @ 200 mls/hr IV Q12H NATALYA Last Admin: 04/11/18 20:49 Dose: 200 mls/hr Magnesium Oxide (Magnesium Oxide) 400 mg PO DAILY [facility] Metoprolol Succinate (Toprol Xl) 25 mg PO DAILY@1999 [facility] Non-Formulary Medication (Albuterol) 2.5 mg NEB Q4H PRN PRN Reason: Shortness of Breath Non-Formulary Medication (Budesonide/Formoterol) 2 puff INH BID NATALYA Non-Formulary Medication (Cranberry Fruit Extract [Cranberry]) 1 cap PO DAILY NATALYA Non-Formulary Medication (D-Mannose [D-Mannose]) 1 cap PO DAILY NATALYA Non-Formulary Medication (Lactobacillus Combination No.4 [Probiotic]) 1 cap PO BID@10,18 NATALYA Non-Formulary Medication (Lactulose [Generlac]) 20 gm PO TID PRN PRN Reason: Constipation Non-Formulary Medication (Multivitamin [Daily Multiple Vitamin]) 1 each PO DAILY NATALYA Senna/Docusate Sodium (Senna Plus) tab PO BID@0700,1700 NATALYA Sertraline HCl (Zoloft) 25 mg PO DAILY NATALYA Tiotropium [place] (Spiriva Handihaler) mcg INH DAILY@0700 NATALYA Warfarin Sodium (Coumadin) 2.5 mg PO MOWEFR [facility] Assessment/Plan Comment:: Plan Admit acute cares IV fluids, IV cipro for now my redose Rocephin depending on the CXR, repeat labs in AM, CXR PA and lateral also tomorrow after some hydration. sputum, blood, and urine cultures all ordered. Incentive spirometry. Repeat lactic. I will dose coumadin after the INR returns. Code level 3. Dr. Ellsworth aware of admission and will follow.
[2018-04-11] MEDS: Lactobacillus Rhamnosus GG (Probiotic) Cap PO SCH (23:37)
[2018-04-12] MEDS: Fluticasone-Salmeterol 232-14 MCG Powder Inhalent INH SCH ×2 (00:03→09:35)
[2018-04-12 06:54] LABS: ANION GAP 12.8 mmol/L (10-20)
[2018-04-12] MEDS ORDERED: Tiotropium Inhaler 18 MCG Inhalation Powder Cap Kit of 5 INH SCH (07:00)
[2018-04-12] MEDS ORDERED: Warfarin 5 MG Tab PO ONE (07:31)
[2018-04-12] MEDS: Cranberry 500 MG Cap PO SCH (07:50)
[2018-04-12] MEDS: Diltiazem 180 MG Cap.CD PO SCH (07:50)
[2018-04-12] MEDS: Allopurinol 300 MG Tab PO SCH (07:50)
[2018-04-12] MEDS: Multivitamins with Iron/Calcium/Folic Acid/Minerals Tab PO SCH (07:50)
[2018-04-12] MEDS: Cyanocobalamin (Vitamin B12) 1,000 MCG Tab PO SCH (07:50)
[2018-04-12] MEDS: Magnesium Oxide 400 MG Tab PO SCH (07:50)
[2018-04-12] MEDS: Ciprofloxacin in D5W 400 MG in Premix Bag 1 BAG IV SCH ×2 (07:51)
[2018-04-12] MEDS: Acetaminophen 325 MG Tab PO SCH ×3 (07:51→20:00)
[2018-04-12] MEDS: Sertraline 25 MG Tab PO SCH (07:51)
[2018-04-12] MEDS ORDERED: Albuterol/Ipratropium 3.0-0.5 MG/3 ML Neb Soln NEB SCH (08:00)
[2018-04-12] MEDS ORDERED: Lactulose Soln 10 GM/15 ML 15 ML UD Cup PO PRN (08:00)
[2018-04-12] MEDS: Glycopyrrolate 15.6 MCG Cap.W.Dev Kit of 6 IH SCH ×2 (09:52→20:05)
[2018-04-12] MEDS: Lactobacillus Rhamnosus GG (Probiotic) Cap PO SCH ×2 (09:53→17:46)
[2018-04-12] MEDS: D MANNOSE PO SCH (09:57)
--- NOTE | 2018-04-12 09:57 | CR ---
[id number] RAD/RAD Chest PA or AP 1V EXAM: FRONTAL CHEST INDICATION: Cough. COMPARISON: April 11, 2017. DISCUSSION: There is stable cardiomegaly with mild to moderate congestive heart failure. Small bilateral pleural effusions are stable and result in a degree of basilar atelectasis. Infiltrates could be obscured in the lung bases. Chronic left midlung scarring is stable. Lower thoracic vertebroplasty. IMPRESSION: 1. Stable mild congestive heart failure. John Schneider MD 04/12/18 0956 Thank you for allowing us to participate in the care of your patient.
[2018-04-12] MEDS: Budesonide 0.5 MG/2 ML Neb Susp INH SCH ×2 (10:27→20:04)
[2018-04-12] MEDS: Arformoterol 15 MCG/2 ML Neb Soln INH SCH ×2 (10:27→20:04)
--- NOTE | 2018-04-12 11:59 | PCM.PN ---
- General Info Date of Service: 04/12/18 Subjective Update: 82 yo hospital day #2 for sepsis. He reports he is feeling somewhat better today. He slept well last night and his strength is improved. Nursing notes intermittent confusion. The patient did think he was in [place] this morning. He is still coughing and feels that did worsen overnight. He also does not feel he has had much change in his shortness of breath. No chest pain. His appetite is ok. No nausea or vomiting. He did not feel feverish overnight when he was febrile. - Review of Systems General: Reports: Fever, Weakness HEENT: Reports: No Symptoms Pulmonary: Reports: Shortness of Breath, Cough Cardiovascular: Reports: No Symptoms Gastrointestinal: Reports: No Symptoms Genitourinary: Reports: No Symptoms Musculoskeletal: Reports: No Symptoms Skin: Reports: No Symptoms Neurological: Reports: Confusion - Patient Data Vitals - Most Recent: Last Vital Signs Temp 36.8 C 04/12/18 08:50 Pulse 89 04/12/18 08:50 Resp 18 04/12/18 08:50 BP 105/59 L 04/12/18 08:50 Pulse Ox 97 04/12/18 08:50 Weight - Most Recent: 90.083 kg I&O - Last 24 Hours: Intake & Output 04/11/18 04/12/18 04/12/18 22:59 06:59 14:59 Intake Total 200 931 240 Output Total 750 Balance 200 181 240 Lab Results Last 24 Hours: Laboratory Results - last 24 hr 04/11/18 04/11/18 04/11/18 Range/Units 17:44 17:52 17:52 WBC 15.6 H (4.0-10.0) x10^3/uL RBC 4.27 L (4.5-6.0) x10^6/uL Hgb 13.6 L D (14.0-18.0) g/dL Hct 42.1 (40.0-52.0) % MCV 98.6 H D (78.0-93.0) fL MCH 31.9 (26.0-32.0) pg MCHC 32.3 (32.0-36.0) g/dL RDW Coeff of Lety 14.6 (10.0-15.0) % Plt Count 319 D (130-400) x10^3/uL Neut % (Auto) 82.6 H (50.0-80.0) % Lymph % (Auto) 9.1 L (25.0-50.0) % Morehouse % (Auto) 7.9 (2.0-11.0) % Eos % (Auto) 0.1 (0.0-4.0) % Baso % (Auto) 0.3 (0.2-1.2) % PT (9.6-11.4) SEC INR (2.0-3.5) Sodium 136 (136-145) mmol/L Potassium 4.2 (3.5-5.1) mmol/L Chloride 99 (98-107) mmol/L Carbon Dioxide 26 (21-32) mmol/L Anion Gap 15.2 (10-20) mmol/L BUN 39 H (7-18) mg/dL Creatinine 1.5 H (0.70-1.30) mg/dL Est Cr Clr Drug Dosing TNP Estimated GFR (MDRD) 45 Glucose 182 H (74-106) mg/dL Lactic Acid (0.4-2.0) mmol/L Calcium 9.6 (8.5-10.1) mg/dL Corrected Calcium 10.16 H (8.5-10.1) mg/dL Magnesium 1.8 (1.8-2.4) mg/dL Total Bilirubin 0.7 (0.2-1.0) mg/dL AST 29 (15-37) U/L ALT 28 (16-63) U/L Alkaline Phosphatase 104 (46-116) U/L C-Reactive Protein 19.4 H (<=0.9) mg/dL NT-Pro-B Natriuret Pep (<=450) pg/mL Total Protein 7.9 (6.4-8.2) g/dL Albumin 3.3 L (3.4-5.0) g/dL Globulin 4.6 Albumin/Globulin Ratio 0.72 Urine Color Yellow (YELLOW) Urine Appearance Cloudy H (CLEAR) Urine pH 7.5 (5.0-8.0) Ur Specific [place]rosse 1.015 Urine Protein Trace H (NEGATIVE) mg/dL Urine Glucose (UA) Negative (NEGATIVE) mg/dL Urine Ketones Negative (NEGATIVE) mg/dL Urine Occult Blood Small H (NEGATIVE) Urine Nitrite Positive H (NEGATIVE) Urine Bilirubin Negative (NEGATIVE) Urine Urobilinogen 0.2 (0.2) EU/dL Ur Leukocyte Esterase Large H (NEGATIVE) Urine RBC 0-5 (NOT SEEN) /HPF Urine WBC 5-10 H (NOT SEEN) /HPF Ur Squamous Epith Cells Not seen (NEGATIVE) /HPF Urine Bacteria Moderate H (NEGATIVE) /HPF Urine Mucus Rare H (NEGATIVE) /LPF 04/11/18 04/11/18 04/11/18 Range/Units 17:52 17:52 22:20 WBC (4.0-10.0) x10^3/uL RBC (4.5-6.0) x10^6/uL Hgb (14.0-18.0) g/dL Hct (40.0-52.0) % MCV (78.0-93.0) fL MCH (26.0-32.0) pg MCHC (32.0-36.0) g/dL RDW Coeff of Lety (10.0-15.0) % Plt Count (130-400) x10^3/uL Neut % (Auto) (50.0-80.0) % Lymph % (Auto) (25.0-50.0) % Morehouse % (Auto) (2.0-11.0) % Eos % (Auto) (0.0-4.0) % Baso % (Auto) (0.2-1.2) % PT (9.6-11.4) SEC INR (2.0-3.5) Sodium (136-145) mmol/L Potassium (3.5-5.1) mmol/L Chloride (98-107) mmol/L Carbon Dioxide (21-32) mmol/L Anion Gap (10-20) mmol/L BUN (7-18) mg/dL Creatinine (0.70-1.30) mg/dL Est Cr Clr Drug Dosing Estimated GFR (MDRD) Glucose (74-106) mg/dL Lactic Acid 2.7 H* 2.0 (0.4-2.0) mmol/L Calcium (8.5-10.1) mg/dL Corrected Calcium (8.5-10.1) mg/dL Magnesium (1.8-2.4) mg/dL Total Bilirubin (0.2-1.0) mg/dL AST (15-37) U/L ALT (16-63) U/L Alkaline Phosphatase (46-116) U/L C-Reactive Protein (<=0.9) mg/dL NT-Pro-B Natriuret Pep 1562 H (<=450) pg/mL Total Protein (6.4-8.2) g/dL Albumin (3.4-5.0) g/dL Globulin Albumin/Globulin Ratio Urine Color (YELLOW) Urine Appearance (CLEAR) Urine pH (5.0-8.0) Ur Specific [place] Urine Protein (NEGATIVE) mg/dL Urine Glucose (UA) (NEGATIVE) mg/dL Urine Ketones (NEGATIVE) mg/dL Urine Occult Blood (NEGATIVE) Urine Nitrite (NEGATIVE) Urine Bilirubin (NEGATIVE) Urine Urobilinogen (0.2) EU/dL Ur Leukocyte Esterase (NEGATIVE) Urine RBC (NOT SEEN) /HPF Urine WBC (NOT SEEN) /HPF Ur Squamous Epith Cells (NEGATIVE) /HPF Urine Bacteria (NEGATIVE) /HPF Urine Mucus (NEGATIVE) /LPF 04/11/18 04/12/18 04/12/18 Range/Units 22:20 06:25 06:25 WBC 17.0 H (4.0-10.0) x10^3/uL RBC 3.72 L (4.5-6.0) x10^6/uL Hgb 12.0 L D (14.0-18.0) g/dL Hct 36.7 L (40.0-52.0) % MCV 98.7 H (78.0-93.0) fL MCH 32.3 H (26.0-32.0) pg MCHC 32.7 (32.0-36.0) g/dL RDW Coeff of Lety 14.3 (10.0-15.0) % Plt Count 280 (130-400) x10^3/uL Neut % (Auto) 74.1 (50.0-80.0) % Lymph % (Auto) 16.1 L (25.0-50.0) % [place] % (Auto) 9.5 (2.0-11.0) % Eos % (Auto) 0.1 (0.0-4.0) % Baso % (Auto) 0.2 (0.2-1.2) % PT 16.2 H (9.6-11.4) SEC INR 1.6 L (2.0-3.5) Sodium 137 (136-145) mmol/L Potassium 3.8 (3.5-5.1) mmol/L Chloride 102 (98-107) mmol/L Carbon Dioxide 26 (21-32) mmol/L Anion Gap 12.8 (10-20) mmol/L BUN 33 H (7-18) mg/dL Creatinine 1.3 (0.70-1.30) mg/dL Est Cr Clr Drug Dosing 49.18 Estimated GFR (MDRD) 53 Glucose 109 H (74-106) mg/dL Lactic Acid (0.4-2.0) mmol/L Calcium 8.9 (8.5-10.1) mg/dL Corrected Calcium (8.5-10.1) mg/dL Magnesium (1.8-2.4) mg/dL Total Bilirubin (0.2-1.0) mg/dL AST (15-37) U/L ALT (16-63) U/L Alkaline Phosphatase (46-116) U/L C-Reactive Protein (<=0.9) mg/dL NT-Pro-B Natriuret Pep (<=450) pg/mL Total Protein (6.4-8.2) g/dL Albumin (3.4-5.0) g/dL Globulin Albumin/Globulin Ratio Urine Color (YELLOW) Urine Appearance (CLEAR) Urine pH (5.0-8.0) Ur Specific [place] Urine Protein (NEGATIVE) mg/dL Urine Glucose (UA) (NEGATIVE) mg/dL Urine Ketones (NEGATIVE) mg/dL Urine Occult Blood (NEGATIVE) Urine Nitrite (NEGATIVE) Urine Bilirubin (NEGATIVE) Urine Urobilinogen (0.2) EU/dL Ur Leukocyte Esterase (NEGATIVE) Urine RBC (NOT SEEN) /HPF Urine WBC (NOT SEEN) /HPF Ur Squamous Epith Cells (NEGATIVE) /HPF Urine Bacteria (NEGATIVE) /HPF Urine Mucus (NEGATIVE) /LPF 04/12/18 Range/Units 06:25 WBC (4.0-10.0) x10^3/uL RBC (4.5-6.0) x10^6/uL Hgb (14.0-18.0) g/dL Hct (40.0-52.0) % MCV (78.0-93.0) fL MCH (26.0-32.0) pg MCHC (32.0-36.0) g/dL RDW Coeff of Lety (10.0-15.0) % Plt Count (130-400) x10^3/uL Neut % (Auto) (50.0-80.0) % Lymph % (Auto) (25.0-50.0) % [place] % (Auto) (2.0-11.0) % Eos % (Auto) (0.0-4.0) % Baso % (Auto) (0.2-1.2) % PT (9.6-11.4) SEC INR (2.0-3.5) Sodium (136-145) mmol/L Potassium (3.5-5.1) mmol/L Chloride (98-107) mmol/L Carbon Dioxide (21-32) mmol/L Anion Gap (10-20) mmol/L BUN (7-18) mg/dL Creatinine (0.70-1.30) mg/dL Est Cr Clr Drug Dosing Estimated GFR (MDRD) Glucose (74-106) mg/dL Lactic Acid (0.4-2.0) mmol/L Calcium (8.5-10.1) mg/dL Corrected Calcium (8.5-10.1) mg/dL Magnesium 2.0 (1.8-2.4) mg/dL Total Bilirubin (0.2-1.0) mg/dL AST (15-37) U/L ALT (16-63) U/L Alkaline Phosphatase (46-116) U/L C-Reactive Protein (<=0.9) mg/dL NT-Pro-B Natriuret Pep (<=450) pg/mL Total Protein (6.4-8.2) g/dL Albumin (3.4-5.0) g/dL Globulin Albumin/Globulin Ratio Urine Color (YELLOW) Urine Appearance (CLEAR) Urine pH (5.0-8.0) Ur Specific [place] Urine Protein (NEGATIVE) mg/dL Urine Glucose (UA) (NEGATIVE) mg/dL Urine Ketones (NEGATIVE) mg/dL Urine Occult Blood (NEGATIVE) Urine Nitrite (NEGATIVE) Urine Bilirubin (NEGATIVE) Urine Urobilinogen (0.2) EU/dL Ur Leukocyte Esterase (NEGATIVE) Urine RBC (NOT SEEN) /HPF Urine WBC (NOT SEEN) /HPF Ur Squamous Epith Cells (NEGATIVE) /HPF Urine Bacteria (NEGATIVE) /HPF Urine Mucus (NEGATIVE) /LPF Joce Results Last 24 Hours: Microbiology 04/11/18 17:44 Influenza Type A Antigen Screen - Final Nasal Aspirate, Unspecified NEGATIVE INFLUENZA A VIRUS AG Influenza Type B Antigen Screen - Final NEGATIVE INFLUENZA B VIRUS AG Med Orders - Current: Current Medications Acetaminophen (Tylenol) 650 mg PO Q4H PRN PRN Reason: Pain (Mild 1-3)/fever Last Admin: 04/12/18 02:44 Dose: 650 mg Acetaminophen (Tylenol) 650 mg PO TID [facility] Last Admin: 04/12/18 07:51 Dose: 650 mg Albuterol (Proventil Neb Soln) 2.5 mg NEB Q4H PRN PRN Reason: Shortness of Breath Albuterol/Ipratropium (Duoneb 3.0-0.5 Mg/3 Ml) 3 ml NEB BIDRT [facility] Allopurinol (Zyloprim) 150 mg PO DAILY [facility] Last Admin: 04/12/18 07:50 Dose: 150 mg Arformoterol Tartrate (Brovana) 15 mcg INH BID [facility] Last Admin: 04/12/18 10:27 Dose: 15 mcg Azithromycin (Zithromax) 500 mg PO DAILY [facility] Bisacodyl (Dulcolax) 5 mg PO DAILY PRN PRN Reason: Constipation Budesonide (Pulmicort) 1 mg INH BIDRT [facility] Last Admin: 04/12/18 10:27 Dose: 1 mg Ceftriaxone Sodium (Rocephin) 1 gm IVPUSH Q24H [facility] Cranberry (Cranberry) 500 mg PO DAILY [facility] Last Admin: 04/12/18 07:50 Dose: 500 mg Cyanocobalamin (Vitamin B12) 1,000 mcg PO DAILY [facility] Last Admin: 04/12/18 07:50 Dose: 1,000 mcg Diltiazem HCl (Cardizem Cd) 180 mg PO DAILY [facility] Last Admin: 04/12/18 07:50 Dose: 180 mg Glycopyrrolate (Seebri Neohaler) 15.6 mcg IH BIDRT [facility] Last Admin: 04/12/18 09:52 Dose: 15.6 mcg Sodium Chloride (Normal Saline) 500 mls @ 100 mls/hr IV ASDIRECTED [facility] Last Admin: 04/11/18 20:33 Dose: 100 mls/hr Lactobacillus Rhamnosus (Culturelle) 1 cap PO BID@1000,1800 [facility] Last Admin: 04/12/18 09:53 Dose: 1 cap Lactulose (Chronulac) 20 gm PO TID PRN PRN Reason: Constipation Magnesium Oxide (Magnesium Oxide) 400 mg PO DAILY [facility] Last Admin: 04/12/18 07:50 Dose: 400 mg Metoprolol Succinate (Toprol Xl) 25 mg PO [email or web address]@1999 [facility] Multivitamins/Minerals (Thera M Plus) 1 tab PO DAILY [facility] Last Admin: 04/12/18 07:50 Dose: 1 tab D-Mannose [D-Mannose (]) 1 cap PO DAILY [facility] Last Admin: 04/12/18 09:57 Dose: Not Given Fluticasone/Salmeterol (Fluticasone-Salmeterol 232-14 Mcg Powder Inha) 1 puff INH BID [facility] Last Admin: 04/12/18 09:35 Dose: Not Given Senna/Docusate Sodium (Senna Plus) 1 tab PO BID@0700,1700 [facility] Last Admin: 04/12/18 07:14 Dose: 1 tab Sertraline HCl (Zoloft) 25 mg PO DAILY [facility] Last Admin: 04/12/18 07:51 Dose: 25 mg Warfarin Sodium (Coumadin) 2.5 mg PO [email or web address] [facility] Warfarin Sodium (Coumadin) 5 mg PO [email or web address] [facility] Discontinued Medications Albuterol/Ipratropium (Duoneb 3.0-0.5 Mg/3 Ml) 3 ml NEB BID [facility] Last Admin: 04/12/18 07:14 Dose: 3 ml Ceftriaxone Sodium (Rocephin) 1 gm IVPUSH STAT ONE Stop: 04/11/18 17:58 Last Admin: 04/11/18 18:20 Dose: 1 gm Ciprofloxacin/Dextrose 400 mg/ (Premix) 200 mls @ 200 mls/hr IV Q12H [facility] Last Admin: 04/12/18 07:51 Dose: 200 mls/hr Tiotropium [place] (Spiriva Handihaler) 18 mcg INH DAILY@0700 [facility] Last Admin: 04/12/18 09:43 Dose: Not Given Warfarin Sodium (Coumadin) 5 mg PO ONETIME ONE Stop: 04/12/18 07:32 Last Admin: 04/12/18 07:51 Dose: 5 mg - Exam General: Alert, Cooperative, No Acute Distress HEENT: Pupils Equal, Pupils Reactive, Mucous Membr. Moist/[place] Neck: Supple, Trachea Midline, No Thyromegaly. No: Lymphadenopathy Lungs: Normal Respiratory Effort, Decreased Breath Sounds (throughout), Crackles (bilateral lower lobes (L>R)). No: Wheezing Cardiovascular: Regular Rate, No Murmurs, Irregular Rhythm GI/Abdominal Exam: Normal Bowel Sounds, Soft, Non-Tender, No Organomegaly, No Distention, No Mass Extremities: Non-Tender, No Pedal Edema, Normal Capillary Refill Peripheral Pulses: 2+: Radial (L), Radial (R) Skin: Warm, Dry, Intact Neurological: No New Focal Deficit - Problem List & Annotations (1) Sepsis SNOMED Code(s): 40429771 Code(s): A41.9 - SEPSIS, UNSPECIFIED ORGANISM Status: Acute Current Visit : Yes Qualifiers: Sepsis type: sepsis due to unspecified organism Qualified Code(s): A41.9 - Sepsis, unspecified organism (2) Community acquired pneumonia SNOMED Code(s): 819635197 Code(s): J18.9 - PNEUMONIA, UNSPECIFIED ORGANISM Status: Acute Current Visit: Yes Qualifiers: Laterality: left Lung location: lower lobe of lung Qualified Code(s): J18.1 - Lobar pneumonia, unspecified organism (3) COPD (chronic obstructive pulmonary disease) SNOMED Code(s): 53549680 Code(s): J44.9 - CHRONIC OBSTRUCTIVE PULMONARY DISEASE, UNSPECIFIED Status : Acute Current Visit: No Qualifiers: COPD type: COPD with acute exacerbation Qualified Code(s): J44.1 - Chronic obstructive pulmonary disease with (acute) exacerbation (4) Delirium SNOMED Code(s): 7034866 Code(s): R41.0 - DISORIENTATION, UNSPECIFIED Status: Acute Current Visit : No (5) Chronic anticoagulation SNOMED Code(s): 786860341 Code(s): Z79.01 - 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) USE OF ANTICOAGULANTS Status: Chronic Priority: Medium Current Visit: No Annotation/Comment:: check an INR (6) Chronic atrial fibrillation SNOMED Code(s): 026606231 Code(s): I48.2 - CHRONIC ATRIAL FIBRILLATION Status: Chronic Current Visit: No (7) Chronic kidney disease SNOMED Code(s): 740030078 Code(s): N18.9 - CHRONIC KIDNEY DISEASE, UNSPECIFIED Status: Chronic Current Visit: No Qualifiers: Chronic kidney disease stage: stage 3 (moderate) Qualified Code(s): N18.3 - Chronic kidney disease, stage 3 (moderate) (8) Heart failure SNOMED Code(s): 29439555 Code(s): I50.9 - HEART FAILURE, UNSPECIFIED Status: Chronic Current Visit : No Qualifiers: Heart failure type: diastolic (9) Recurrent UTI SNOMED Code(s): 713435379 Code(s): N39.0 - URINARY TRACT INFECTION, SITE NOT SPECIFIED Status: Chronic Current Visit: No (10) Anemia SNOMED Code(s): 053778696 Code(s): D64.9 - ANEMIA, UNSPECIFIED Status: Chronic Priority: Medium Current Visit: No Qualifiers: Anemia type: unspecified type Qualified Code(s): D64.9 - Anemia, unspecified Annotation/Comment:: hgb actually slightly higher than baseline he is likely dehydrated we will continue to monitor CBC - Problem List Review Problem List Initiated/Reviewed/Updated: Yes - My Orders Last 24 Hours: My Active Orders 04/12/18 09:00 Arformoterol [Brovana] 15 mcg INH BID Budesonide [Pulmicort] 1 mg INH BIDRT 04/12/18 10:41 PT Evaluation and Treatment [CONS] Routine 04/12/18 11:54 Dietary Supplements [RC] BIDMEALS 04/12/18 12:00 Azithromycin [Zithromax] 500 mg PO DAILY 04/12/18 18:00 cefTRIAXone [Rocephin] 1 gm IVPUSH Q24H 04/13/18 05:11 BASIC METABOLIC PANEL,BMP [CHEM] Routine CBC WITH AUTO DIFF [HEME] Routine INR,PT,PROTHROMBIN TIME [COAG] Routine - Assessment Assessment:: 82 yo male admitted yesterday with sepsis, presumed to be secondary to pneumonia. Is feeling somewhat better today. Labs are about the same. - Plan Plan:: #1 Sepsis, secondary to #1 #2 Community Acquired Pneumonia - Meets sepsis criteria with fever and leukocytosis. - Most likely cause is CAP based on his other symptoms. U/A really was not that impressive; culture is pending. - Blood cultures pending. - Will change antibiotics to ceftriaxone + azithromycin today to cover for CAP. - IV fluids PRN. He can take PO ad rebecca. - Recheck labs in the am. #3 COPD, severe - Exam is not consistent with a COPD exacerbation. - Will hold off on prednisone for now. - Will continue home inhalers/nebulizers. - If symptoms worsening or not improving, will add prednisone burst. #4 Delirium - No focal symptoms; likely related to acute illness. - Frequently reorient. #5 Chronic Anticoagulation #6 Chronic atrial fibrillation - Continue home medications. 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 Back to baseline after minimal IV fluids last night. - Will continue to monitor daily and avoid any renal insults. #8 Heart Failure - No evidence of CHF exacerbation. - Continue home medications. #9 Recurrent UTI - See above. #10 Anemia - Hgb stable. - Will monitor daily. Patient will remain on acute status today - anticipate dismissal in 2-3 days. Code status is DNR/DNI. He does not require VTE prophylaxis as he is therapeutic on warfarin.
[2018-04-12] MEDS: Azithromycin 250 MG Tab PO SCH (12:30)
[2018-04-12] MEDS: cefTRIAXone 1 GM Vial IVPUSH SCH (17:46)
[2018-04-12] MEDS ORDERED: Warfarin 5 MG Tab PO SCH (20:00)
[2018-04-12] MEDS: Metoprolol Succinate 25 MG Tab.ER PO SCH (20:02)
[2018-04-12] MEDS: Albuterol/Ipratropium 3.0-0.5 MG/3 ML Neb Soln NEB SCH (20:04)
[2018-04-13 07:03] LABS: ANION GAP 12.9 mmol/L (10-20)
[2018-04-13] MEDS: Albuterol/Ipratropium 3.0-0.5 MG/3 ML Neb Soln NEB SCH ×2 (07:09→19:56)
[2018-04-13] MEDS: Budesonide 0.5 MG/2 ML Neb Susp INH SCH ×2 (07:10→19:56)
[2018-04-13] MEDS: Arformoterol 15 MCG/2 ML Neb Soln INH SCH ×2 (07:35→19:55)
[2018-04-13] MEDS: Glycopyrrolate 15.6 MCG Cap.W.Dev Kit of 6 IH SCH ×2 (07:55→19:55)
[2018-04-13] MEDS: Cranberry 500 MG Cap PO SCH (08:15)
[2018-04-13] MEDS: Cyanocobalamin (Vitamin B12) 1,000 MCG Tab PO SCH (08:15)
[2018-04-13] MEDS: Multivitamins with Iron/Calcium/Folic Acid/Minerals Tab PO SCH (08:15)
[2018-04-13] MEDS: Magnesium Oxide 400 MG Tab PO SCH (08:15)
[2018-04-13] MEDS: Diltiazem 180 MG Cap.CD PO SCH (08:15)
[2018-04-13] MEDS: Sertraline 25 MG Tab PO SCH (08:16)
[2018-04-13] MEDS: Azithromycin 250 MG Tab PO SCH (08:16)
[2018-04-13] MEDS: Acetaminophen 325 MG Tab PO SCH ×3 (08:16→20:01)
[2018-04-13] MEDS: Allopurinol 300 MG Tab PO SCH (08:16)
--- NOTE | 2018-04-13 08:33 | PCM.PN ---
- General Info Date of Service: 04/13/18 Subjective Update: 82 yo hospital day #3 for sepsis secondary to community acquired pneumonia. Slept well overnight and states he is feeling somewhat better today. 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 He is still coughing some but this is improving; his shortness of breath is much improved. No fever or chest pain. Has been eating well. Wonders when he can go back to the care center. Has not had a BM x 3-4 days but does not feel like he needs to. - Review of Systems General: Reports: No Symptoms HEENT: Reports: No Symptoms Pulmonary: Reports: Shortness of Breath, Cough Cardiovascular: Reports: No Symptoms Gastrointestinal: Reports: No Symptoms Genitourinary: Reports: No Symptoms Musculoskeletal: Reports: No Symptoms Skin: Reports: No Symptoms Neurological: Reports: No Symptoms - Patient Data Vitals - Most Recent: Last Vital Signs Temp 36.6 C 04/13/18 05:41 Pulse 80 04/13/18 05:41 Resp 21 H 04/13/18 05:41 BP 102/53 L 04/13/18 05:41 Pulse Ox 96 04/13/18 07:13 Weight - Most Recent: 90.083 kg I&O - Last 24 Hours: Intake & Output 04/12/18 04/13/18 04/13/18 22:59 06:59 14:59 Intake Total 200 500 Output Total 400 1200 Balance -200 -700 Lab Results Last 24 Hours: Laboratory Results - last 24 hr 04/13/18 04/13/18 04/13/18 Range/Units 06:35 06:35 06:35 WBC 11.1 H (4.0-10.0) x10^3/uL RBC 3.75 L (4.5-6.0) x10^6/uL Hgb 11.9 L (14.0-18.0) g/dL Hct 37.1 L (40.0-52.0) % MCV 98.9 H (78.0-93.0) fL MCH 31.7 (26.0-32.0) pg MCHC 32.1 (32.0-36.0) g/dL RDW Coeff of Lety 14.2 (10.0-15.0) % Plt Count 284 (130-400) x10^3/uL Add Manual Diff Yes Neutrophils % (Manual) 79 (50-80) % Lymphocytes % (Manual) 13 L (25-50) % Monocytes % (Manual) 8 (2-11) % Platelet Estimate Adequate Giant Platelets Occasional H Macrocytosis 1+ slight H Spherocytes 1+ slight H PT 26.0 H D (9.6-11.4) SEC INR 2.5 (2.0-3.5) Sodium 139 (136-145) mmol/L Potassium 3.9 (3.5-5.1) mmol/L Chloride 104 (98-107) mmol/L Carbon Dioxide 26 (21-32) mmol/L Anion Gap 12.9 (10-20) mmol/L BUN 30 H (7-18) mg/dL Creatinine 1.2 (0.70-1.30) mg/dL Est Cr Clr Drug Dosing 53.28 mL/min Estimated GFR (MDRD) 58 Glucose 95 (74-106) mg/dL Calcium 9.0 (8.5-10.1) mg/dL Joce Results Last 24 Hours: Microbiology 04/11/18 18:00 Aerobic Blood Culture - Preliminary Blood - Venous - Lab Draw NO GROWTH AFTER 1 DAY Anaerobic Blood Culture - Preliminary NO GROWTH AFTER 1 DAY 04/11/18 17:52 Aerobic Blood Culture - Preliminary Blood - Venous NO GROWTH AFTER 1 DAY Anaerobic Blood Culture - Preliminary NO GROWTH AFTER 1 DAY 04/11/18 18:10 Urine Culture - Preliminary Urine, Urostromy Staphylococcus Aureus 04/11/18 22:00 MRSA Surveillance Culture - Final Nares, Unspecified (Mrsa) Staphylococcus Aureus Med Orders - Current: Current Medications Acetaminophen (Tylenol) 650 mg PO Q4H PRN PRN Reason: Pain (Mild 1-3)/fever Last Admin: 04/12/18 02:44 Dose: 650 mg Acetaminophen (Tylenol) 650 mg PO TID [facility] Last Admin: 04/13/18 08:16 Dose: 650 mg Albuterol (Proventil Neb Soln) 2.5 mg NEB Q4H PRN PRN Reason: Shortness of Breath Albuterol/Ipratropium (Duoneb 3.0-0.5 Mg/3 Ml) 3 ml NEB BIDRT [facility] Last Admin: 04/13/18 07:09 Dose: 3 ml Allopurinol (Zyloprim) 150 mg PO DAILY [facility] Last Admin: 04/13/18 08:16 Dose: 150 mg Arformoterol Tartrate (Brovana) 15 mcg INH BID [facility] Last Admin: 04/13/18 07:35 Dose: 15 mcg Azithromycin (Zithromax) 500 mg PO DAILY [facility] Last Admin: 04/13/18 08:16 Dose: 500 mg Bisacodyl (Dulcolax) 5 mg PO DAILY PRN PRN Reason: Constipation Budesonide (Pulmicort) 1 mg INH BIDRT [facility] Last Admin: 04/13/18 07:10 Dose: 1 mg Ceftriaxone Sodium (Rocephin) 1 gm IVPUSH Q24H [facility] Last Admin: 04/12/18 17:46 Dose: 1 gm Cranberry (Cranberry) 500 mg PO DAILY [facility] Last Admin: 04/13/18 08:15 Dose: 500 mg Cyanocobalamin (Vitamin B12) 1,000 mcg PO DAILY [facility] Last Admin: 04/13/18 08:15 Dose: 1,000 mcg Diltiazem HCl (Cardizem Cd) 180 mg PO DAILY [facility] Last Admin: 04/13/18 08:15 Dose: 180 mg Glycopyrrolate (Seebri Neohaler) 15.6 mcg IH BIDRT [facility] Last Admin: 04/13/18 07:55 Dose: 15.6 mcg Sodium Chloride (Normal Saline) 500 mls @ 100 mls/hr IV ASDIRECTED [facility] Last Admin: 04/11/18 20:33 Dose: 100 mls/hr Lactobacillus Rhamnosus (Culturelle) 1 cap PO BID@1000,1800 [facility] Last Admin: 04/12/18 17:46 Dose: 1 cap Lactulose (Chronulac) 20 gm PO TID PRN PRN Reason: Constipation Magnesium Oxide (Magnesium Oxide) 400 mg PO DAILY [facility] Last Admin: 04/13/18 08:15 Dose: 400 mg Metoprolol Succinate (Toprol Xl) 25 mg PO DAILY@2000 [facility] Last Admin: 04/12/18 20:02 Dose: 25 mg Multivitamins/Minerals (Thera M Plus) 1 tab PO DAILY [facility] Last Admin: 04/13/18 08:15 Dose: 1 tab D-Mannose [D-Mannose (]) 1 cap PO DAILY [facility] Last Admin: 04/12/18 09:57 Dose: Not Given Fluticasone/Salmeterol (Fluticasone-Salmeterol 232-14 Mcg Powder Inha) 1 puff INH BID [facility] Last Admin: 04/12/18 09:35 Dose: Not Given Senna/Docusate Sodium (Senna Plus) 1 tab PO BID@0700,1700 [facility] Last Admin: 04/13/18 06:17 Dose: 1 tab Sertraline HCl (Zoloft) 25 mg PO DAILY [facility] Last Admin: 04/13/18 08:16 Dose: 25 mg Warfarin Sodium (Coumadin) 2.5 mg PO [email or web address] [facility] Last Admin: 04/12/18 20:02 Dose: 2.5 mg Warfarin Sodium (Coumadin) 5 mg PO [email or web address] [facility] Discontinued Medications Albuterol/Ipratropium (Duoneb 3.0-0.5 Mg/3 Ml) 3 ml NEB BID [facility] Last Admin: 04/12/18 07:14 Dose: 3 ml Ceftriaxone Sodium (Rocephin) 1 gm IVPUSH STAT ONE Stop: 04/11/18 17:58 Last Admin: 04/11/18 18:20 Dose: 1 gm Ciprofloxacin/Dextrose 400 mg/ (Premix) 200 mls @ 200 mls/hr IV Q12H [facility] Last Admin: 04/12/18 07:51 Dose: 200 mls/hr Tiotropium [place] (Spiriva Handihaler) 18 mcg INH DAILY@0700 [facility] Last Admin: 04/12/18 09:43 Dose: Not Given Warfarin Sodium (Coumadin) 5 mg PO ONETIME ONE Stop: 04/12/18 07:32 Last Admin: 04/12/18 07:51 Dose: 5 mg - Exam General: Alert, Oriented, Cooperative, No Acute Distress HEENT: Pupils Equal, Pupils Reactive, Mucous Membr. Moist/[place] Neck: Supple, Trachea Midline, No Thyromegaly. No: Lymphadenopathy Lungs: Clear to Auscultation, Normal Respiratory Effort Cardiovascular: Regular Rate, Irregular Rhythm, Murmurs GI/Abdominal Exam: Normal Bowel Sounds, Soft, Non-Tender, No Organomegaly, No Distention, No Mass Extremities: Non-Tender, No Pedal Edema, Normal Capillary Refill Peripheral Pulses: 2+: Radial (L), Radial (R) Skin: Warm, Dry, Intact - Problem List & Annotations (1) Sepsis SNOMED Code(s): 50859712 Code(s): A41.9 - SEPSIS, UNSPECIFIED ORGANISM Status: Acute Current Visit : Yes Qualifiers: Sepsis type: sepsis due to unspecified organism Qualified Code(s): A41.9 - Sepsis, unspecified organism (2) Community acquired pneumonia SNOMED Code(s): 445480795 Code(s): J18.9 - PNEUMONIA, UNSPECIFIED ORGANISM Status: Acute Current Visit: Yes Qualifiers: Laterality: left Lung location: lower lobe of lung Qualified Code(s): J18.1 - Lobar pneumonia, unspecified organism (3) COPD (chronic obstructive pulmonary disease) SNOMED Code(s): 33065874 Code(s): J44.9 - CHRONIC OBSTRUCTIVE PULMONARY DISEASE, UNSPECIFIED Status : Acute Current Visit: No Qualifiers: COPD type: COPD with acute exacerbation Qualified Code(s): J44.1 - Chronic obstructive pulmonary disease with (acute) exacerbation (4) Delirium SNOMED Code(s): 3862894 Code(s): R41.0 - DISORIENTATION, UNSPECIFIED Status: Acute Current Visit : No (5) Chronic anticoagulation SNOMED Code(s): 910653836 Code(s): Z79.01 - PENITENTIARY (CURRENT) USE OF ANTICOAGULANTS Status: Chronic Priority: Medium Current Visit: No Annotation/Comment:: check an INR (6) Chronic atrial fibrillation SNOMED Code(s): 500655408 Code(s): I48.2 - CHRONIC ATRIAL FIBRILLATION Status: Chronic Current Visit: No (7) Chronic kidney disease SNOMED Code(s): 669569346 Code(s): N18.9 - CHRONIC KIDNEY DISEASE, UNSPECIFIED Status: Chronic Current Visit: No Qualifiers: Chronic kidney disease stage: stage 3 (moderate) Qualified Code(s): N18.3 - Chronic kidney disease, stage 3 (moderate) (8) Heart failure SNOMED Code(s): 19534627 Code(s): I50.9 - HEART FAILURE, UNSPECIFIED Status: Chronic Current Visit : No Qualifiers: Heart failure type: diastolic (9) Recurrent UTI SNOMED Code(s): 615351032 Code(s): N39.0 - URINARY TRACT INFECTION, SITE NOT SPECIFIED Status: Chronic Current Visit: No (10) Anemia SNOMED Code(s): 154392232 Code(s): D64.9 - ANEMIA, UNSPECIFIED Status: Chronic Priority: Medium Current Visit: No Qualifiers: Anemia type: unspecified type Qualified Code(s): D64.9 - Anemia, unspecified Annotation/Comment:: hgb actually slightly higher than baseline he is likely dehydrated we will continue to monitor CBC (11) Constipation SNOMED Code(s): 94246946 Code(s): K59.00 - CONSTIPATION, UNSPECIFIED Status: Chronic Current Visit : No Qualifiers: Constipation type: unspecified constipation type Qualified Code(s): K59.00 - Constipation, unspecified - Problem List Review Problem List Initiated/Reviewed/Updated: Yes - My Orders Last 24 Hours: My Active Orders 04/12/18 09:00 Arformoterol [Brovana] 15 mcg INH BID Budesonide [Pulmicort] 1 mg INH BIDRT 04/12/18 10:41 PT Evaluation and Treatment [CONS] Routine 04/12/18 11:54 Dietary Supplements [RC] BIDMEALS 04/12/18 12:00 Azithromycin [Zithromax] 500 mg PO DAILY 04/12/18 18:00 cefTRIAXone [Rocephin] 1 gm IVPUSH Q24H - Assessment Assessment:: 82 yo male admitted yesterday with sepsis, presumed to be secondary to pneumonia. Is doing much better today. - Plan Plan:: #1 Sepsis, secondary to #1, resolved #2 Community Acquired Pneumonia - Met sepsis criteria on admission with fever and leukocytosis. This is now resolved. - Most likely cause is CAP based on his other symptoms. - U/A really was not that impressive; culture shows staph aureus, which is likely a contaminant rather than a true pathogen. - Blood cultures negative thus far. - Continue ceftriaxone + azithromycin today. He would benefit from a full 48 hours of IV antibiotics and then can be transitioned to PO antibiotics tomorrow. - IV fluids PRN. He can take PO ad rebecca. - Recheck labs in the am. #3 COPD, severe - Exam is not consistent with a COPD exacerbation. - Will continue hold off on prednisone for now. - Will continue home inhalers/nebulizers. - If symptoms worsening or not improving, will add prednisone burst. #4 Delirium, resolved - Doing much better today. - Will continue to monitor. #5 Chronic Anticoagulation #6 Chronic atrial fibrillation - INR is therapeutic today. - Continue home medications. #7 Chronic Kidney Disease - [employer] slightly up on admission but only slightly. Back to baseline after minimal IV fluids and remains normal today. - Will continue to monitor daily and avoid any renal insults. #8 Heart Failure - No evidence of CHF exacerbation. - Continue home medications. #9 Recurrent UTI - See above. #10 Anemia - Hgb stable. - Will monitor daily. #11 Constipation - Will give this another 24 hours. - If still no BM, will add miralax. Patient will remain on acute status today - anticipate dismissal back to [facility] tomorrow after he has had 48 hours of IV antibiotics. Code status is DNR/DNI. He does not require VTE prophylaxis as he is therapeutic on warfarin.
[2018-04-13] MEDS: D MANNOSE PO SCH (09:39)
[2018-04-13] MEDS: Lactobacillus Rhamnosus GG (Probiotic) Cap PO SCH ×2 (10:13→18:15)
[2018-04-13] MEDS: cefTRIAXone 1 GM Vial IVPUSH SCH (18:15)
[2018-04-13] MEDS ORDERED: Warfarin 5 MG Tab PO SCH (20:00)
[2018-04-13] MEDS: Metoprolol Succinate 25 MG Tab.ER PO SCH (20:01)
[2018-04-14 06:00] VITALS: BP 111/64
[2018-04-14] MEDS: Albuterol/Ipratropium 3.0-0.5 MG/3 ML Neb Soln NEB SCH (06:01)
[2018-04-14] MEDS: Budesonide 0.5 MG/2 ML Neb Susp INH SCH (06:01)
[2018-04-14] MEDS: Glycopyrrolate 15.6 MCG Cap.W.Dev Kit of 6 IH SCH (06:02)
[2018-04-14 07:21] LABS: CHLORIDE,CL 104 mmol/L (98-107); SODIUM,NA 138 mmol/L (136-145)
[2018-04-14 07:22] LABS: ANION GAP 13.9 mmol/L (10-20)
[2018-04-14] MEDS: Multivitamins with Iron/Calcium/Folic Acid/Minerals Tab PO SCH (08:03)
[2018-04-14] MEDS: Azithromycin 250 MG Tab PO SCH (08:03)
[2018-04-14] MEDS: Acetaminophen 325 MG Tab PO SCH (08:03)
[2018-04-14] MEDS: Cranberry 500 MG Cap PO SCH (08:03)
[2018-04-14] MEDS: Cyanocobalamin (Vitamin B12) 1,000 MCG Tab PO SCH (08:03)
[2018-04-14] MEDS: Allopurinol 300 MG Tab PO SCH (08:03)
[2018-04-14] MEDS: Magnesium Oxide 400 MG Tab PO SCH (08:03)
[2018-04-14] MEDS: Sertraline 25 MG Tab PO SCH (08:03)
[2018-04-14] MEDS: Diltiazem 180 MG Cap.CD PO SCH (08:03)
[2018-04-14] MEDS: Arformoterol 15 MCG/2 ML Neb Soln INH SCH (08:03)
[2018-04-14] MEDS: D MANNOSE PO SCH (08:04)
--- NOTE | 2018-04-14 08:59 | PCM.DCSUM1 ---
Discharge Summary - Hospital Course Brief History: Mr. Aragon is an 82 yo male who was admitted with sepsis secondary to community acquired pneumonia after he presented to the ER for evaluation of generalized weakness and shortness of breath. - Discharge Data Discharge Date: 04/14/18 Discharge Disposition: DC/Tfer to SNF 03 Condition: Stable - Discharge Diagnosis/Problem(s) (1) Sepsis SNOMED Code(s): 20176262 ICD Code: A41.9 - SEPSIS, UNSPECIFIED ORGANISM Status: Acute Current Visit: Yes Qualifiers: Sepsis type: sepsis due to unspecified organism Qualified Code(s): A41.9 - Sepsis, unspecified organism (2) Community acquired pneumonia SNOMED Code(s): 542053646 ICD Code: J18.9 - PNEUMONIA, UNSPECIFIED ORGANISM Status: Acute Current Visit: Yes Qualifiers: Laterality: left Lung location: lower lobe of lung Qualified Code(s): J18.1 - Lobar pneumonia, unspecified organism (3) COPD (chronic obstructive pulmonary disease) SNOMED Code(s): 53099848 ICD Code: J44.9 - CHRONIC OBSTRUCTIVE PULMONARY DISEASE, UNSPECIFIED Status : Acute Current Visit: No Qualifiers: COPD type: COPD with acute exacerbation Qualified Code(s): J44.1 - Chronic obstructive pulmonary disease with (acute) exacerbation (4) Delirium SNOMED Code(s): 1482205 ICD Code: R41.0 - DISORIENTATION, UNSPECIFIED Status: Acute Current Visit : No (5) Chronic anticoagulation SNOMED Code(s): 273342705 ICD Code: Z79.01 - PRACTICE SUPPORT SPECIALIST (CURRENT) USE OF ANTICOAGULANTS Status: Chronic Priority: Medium Current Visit: No Problem Details: check an INR (6) Chronic atrial fibrillation SNOMED Code(s): 848734670 ICD Code: I48.2 - CHRONIC ATRIAL FIBRILLATION Status: Chronic Current Visit: No (7) Chronic kidney disease SNOMED Code(s): 109299584 ICD Code: N18.9 - CHRONIC KIDNEY DISEASE, UNSPECIFIED Status: Chronic Current Visit: No Qualifiers: Chronic kidney disease stage: stage 3 (moderate) Qualified Code(s): N18.3 - Chronic kidney disease, stage 3 (moderate) (8) Heart failure SNOMED Code(s): 39623090 ICD Code: I50.9 - HEART FAILURE, UNSPECIFIED Status: Chronic Current Visit: No Qualifiers: Heart failure type: diastolic (9) Recurrent UTI SNOMED Code(s): 678282708 ICD Code: N39.0 - URINARY TRACT INFECTION, SITE NOT SPECIFIED Status: Chronic Current Visit: No (10) Anemia SNOMED Code(s): 231708172 ICD Code: D64.9 - ANEMIA, UNSPECIFIED Status: Chronic Priority: Medium Current Visit: No Problem Details: hgb actually slightly higher than baseline he is likely dehydrated we will continue to monitor CBC Qualifiers: Anemia type: unspecified type Qualified Code(s): D64.9 - Anemia, unspecified (11) Constipation SNOMED Code(s): 70226417 ICD Code: K59.00 - CONSTIPATION, UNSPECIFIED Status: Chronic Current Visit: No Qualifiers: Constipation type: unspecified constipation type Qualified Code(s): K59.00 - Constipation, unspecified - Patient Summary/Data Operative Procedure(s) Performed: none Complications: none Consults: Consultations 04/12/18 10:41 PT Evaluation and Treatment [CONS] Routine Labs Pending at D/C: none Recommended Follow-up Testing/Procedures: none Planned Operative Procedure(s) after DC: none Hospital Course: Patient was admitted and started on IV ciprofloxacin due to concerns this may be a UTI with his history. Once he was more oriented, he did admit to a cough and shortness of breath over the preceding few days. Influenza swab was negative. Therefore, even though his CXR was not overly impressive, it was felt that this was more likely sepsis secondary to pneumonia. Therefore, he was transitioned to ceftriaxone and azithromycin. His symptoms of cough and shortness of breath progressively improved. His WBC progressively improved and were near normal on the day of discharge. His last fever was in the home advisor hours of 04/12. He did not require any prednisone nor any increase in the frequency of his nebulizer treatments. On admission, his creatinine was slightly higher than his baseline, and this responded well to IV fluids. He was then able to tolerate PO fluids and maintain hydration for the remainder of his hospitalization. He did have some constipation that was controlled with his usual medications. Since he has been afebrile for >48 hours, he will be dismissed on azithromycin only to complete a 5 day course. His INR was up to 3.1 on the day of discharge but he will get a lower dose of warfarin tonight and will no longer be on ceftriaxone. Therefore, no other dose adjustments; nursing to touch base with anticoagulation clinic upon discharge. Patient's hospitalization was otherwise uncomplicated. - Patient Instructions Diet: Usual Diet as Tolerated - Discharge Plan *PRESCRIPTION DRUG MONITORING PROGRAM REVIEWED*: Not Applicable *COPY OF PRESCRIPTION DRUG MONITORING REPORT IN PATIENT ALLY: Not Applicable Prescriptions/Med Rec: Azithromycin [Zithromax] 250 mg PO DAILY #2 tablet Home Medications: Home Meds Allopurinol [Zyloprim] 150 mg PO DAILY 09/10/14 [History] Tiotropium [Spiriva HandiHaler] 1 puff PO DAILY@0700 12/24/14 [History] Diltiazem HCl [Cartia Xt] 180 mg PO DAILY 07/04/16 [History] Bisacodyl [Dulcolax] 5 mg PO DAILY PRN 07/07/16 [History] Budesonide/Formoterol [Symbicort 160-4.5 MCG] 2 puff INH BID 09/09/16 [History] Lactobacillus Combination No.4 [Probiotic] 1 cap PO BID@09/09/16 [History] Lactulose [Generlac] 20 gm PO TID PRN 09/09/16 [History] Furosemide [Lasix] 40 mg PO BID@07,199904/27/17 [History] Metoprolol Succinate [Toprol XL] 25 mg PO DAILY@199904/27/17 [History] Albuterol/Ipratropium [DuoNeb 3.0-0.5 MG/3 ML] 3 ml NEB BID 10/11/17 [History] Magnesium Oxide 400 mg PO DAILY 11/13/17 [History] Albuterol [Proventil] 2.5 mg NEB Q4H PRN 12/09/17 [History] Cyanocobalamin (Vitamin B12) [Vitamin B12] 1,000 mcg PO DAILY tablet 12/09/17 [ Rx] Sennosides/Docusate Sodium [Senna-Docusate Sodium Tablet] 1 tab PO BID@0700, 1700 12/09/17 [History] Acetaminophen [Tylenol] 650 mg PO TID 04/11/18 [History] Cranberry Fruit Extract [Cranberry] 425 mg PO DAILY 04/11/18 [History] D-Mannose 500 mg PO DAILY 04/11/18 [History] Multivitamin [Daily Multiple Vitamin] 1 tab PO DAILY 04/11/18 [History] Sertraline [Zoloft] 25 mg PO DAILY 04/11/18 [History] Warfarin [Coumadin] 2.5 mg PO MOWEFR 04/11/18 [History] Warfarin [Coumadin] 5 mg PO SUTUTHSA 04/11/18 [History] Azithromycin [Zithromax] 250 mg PO DAILY #2 tablet 04/14/18 [Rx] Forms: ED Department Discharge Referrals: Larisa Ellsworth MD [Primary Care Provider] - - Discharge Summary/Plan Comment DC Time >30 min.: No - General Info Date of Service: 04/14/18 Subjective Update: 82 yo on hospital day #4 for sepsis secondary to community acquired pneumonia. He slept well last night and states that he is feeling "great" this morning. His cough is minimal and is essentially back to his baseline. His shortness of breath is also nearly back to baseline. He has had no fever or chills. He did have a BM. He denies any abdominal pain and has been eating well. - Review of Systems General: Reports: No Symptoms HEENT: Reports: No Symptoms Pulmonary: Reports: No Symptoms Cardiovascular: Reports: No Symptoms Gastrointestinal: Reports: No Symptoms Genitourinary: Reports: No Symptoms Musculoskeletal: Reports: No Symptoms Skin: Reports: No Symptoms Neurological: Reports: No Symptoms - Patient Data Vitals - Most Recent: Last Vital Signs Temp 36.4 C 04/14/18 05:59 Pulse 75 04/14/18 05:59 Resp 20 04/14/18 05:59 BP 111/64 04/14/18 05:59 Pulse Ox 94 L 04/14/18 05:59 Weight - Most Recent: 91.263 kg I&O - Last 24 hours: Intake & Output 04/13/18 04/14/18 04/14/18 22:59 06:59 14:59 Intake Total 360 250 360 Output Total 1100 1200 Balance -740 -950 360 Lab Results - Last 24 hrs: Laboratory Results - last 24 hr 04/14/18 04/14/18 04/14/18 Range/Units 06:50 06:50 06:50 WBC 10.7 H (4.0-10.0) x10^3/uL RBC 3.86 L (4.5-6.0) x10^6/uL Hgb 12.3 L (14.0-18.0) g/dL Hct 38.1 L (40.0-52.0) % MCV 98.7 H (78.0-93.0) fL MCH 31.9 (26.0-32.0) pg MCHC 32.3 (32.0-36.0) g/dL RDW Coeff of Ltey 14.1 (10.0-15.0) % Plt Count 300 (130-400) x10^3/uL Add Manual Diff Yes Neutrophils % (Manual) 73 (50-80) % Band Neutrophils % 3 (0-6) % Lymphocytes % (Manual) 22 L (25-50) % Eosinophils % (Manual) 2 (0-4) % Platelet Estimate Adequate Macrocytosis 1+ slight H PT 32.4 H (9.6-11.4) SEC INR 3.1 (2.0-3.5) Sodium 138 (136-145) mmol/L Potassium 3.9 (3.5-5.1) mmol/L Chloride 104 (98-107) mmol/L Carbon Dioxide 24 (21-32) mmol/L Anion Gap 13.9 (10-20) mmol/L BUN 29 H (7-18) mg/dL Creatinine 1.1 (0.70-1.30) mg/dL Est Cr Clr Drug Dosing 58.12 mL/min Estimated GFR (MDRD) > 60 Glucose 96 (74-106) mg/dL Calcium 9.2 (8.5-10.1) mg/dL KIERRA Results - Last 24 hrs: Microbiology 04/11/18 17:52 Aerobic Blood Culture - Preliminary Blood - Venous NO GROWTH AFTER 2 DAYS Anaerobic Blood Culture - Final 04/11/18 18:00 Aerobic Blood Culture - Preliminary Blood - Venous - Lab Draw NO GROWTH AFTER 2 DAYS Anaerobic Blood Culture - Preliminary NO GROWTH AFTER 2 DAYS 04/11/18 18:10 Urine Culture - Preliminary Urine, Urostromy Staphylococcus Aureus Streptococcus Species Med Orders - Current: Current Medications Acetaminophen (Tylenol) 650 mg PO Q4H PRN PRN Reason: Pain (Mild 1-3)/fever Last Admin: 04/12/18 02:44 Dose: 650 mg Acetaminophen (Tylenol) 650 mg PO TID NATALYA Last Admin: 04/14/18 08:03 Dose: 650 mg Albuterol (Proventil Neb Soln) 2.5 mg NEB Q4H PRN PRN Reason: Shortness of Breath Albuterol/Ipratropium (Duoneb 3.0-0.5 Mg/3 Ml) 3 ml NEB BIDRT [facility] Last Admin: 04/14/18 06:01 Dose: 3 ml Allopurinol (Zyloprim) 150 mg PO DAILY [facility] Last Admin: 04/14/18 08:03 Dose: 150 mg Arformoterol Tartrate (Brovana) 15 mcg INH BID [facility] Last Admin: 04/14/18 08:03 Dose: 15 mcg Azithromycin (Zithromax) 500 mg PO DAILY [facility] Last Admin: 04/14/18 08:03 Dose: 500 mg Bisacodyl (Dulcolax) 5 mg PO DAILY PRN PRN Reason: Constipation Budesonide (Pulmicort) 1 mg INH BIDRT [facility] Last Admin: 04/14/18 06:01 Dose: 1 mg Ceftriaxone Sodium (Rocephin) 1 gm IVPUSH Q24H [facility] Last Admin: 04/13/18 18:15 Dose: 1 gm Cranberry (Cranberry) 500 mg PO DAILY [facility] Last Admin: 04/14/18 08:03 Dose: 500 mg Cyanocobalamin (Vitamin B12) 1,000 mcg PO DAILY [facility] Last Admin: 04/14/18 08:03 Dose: 1,000 mcg Diltiazem HCl (Cardizem Cd) 180 mg PO DAILY [facility] Last Admin: 04/14/18 08:03 Dose: 180 mg Glycopyrrolate (Seebri Neohaler) 15.6 mcg IH BIDRT [facility] Last Admin: 04/14/18 06:02 Dose: 15.6 mcg Sodium Chloride (Normal Saline) 500 mls @ 100 mls/hr IV ASDIRECTED [facility] Last Admin: 04/11/18 20:33 Dose: 100 mls/hr Lactobacillus Rhamnosus (Culturelle) 1 cap PO BID@1000,1800 [facility] Last Admin: 04/13/18 18:15 Dose: 1 cap Lactulose (Chronulac) 20 gm PO TID PRN PRN Reason: Constipation Magnesium Oxide (Magnesium Oxide) 400 mg PO DAILY [facility] Last Admin: 04/14/18 08:03 Dose: 400 mg Metoprolol Succinate (Toprol Xl) 25 mg PO DAILY@2000 [facility] Last Admin: 04/13/18 20:01 Dose: 25 mg Multivitamins/Minerals (Thera M Plus) 1 tab PO DAILY [facility] Last Admin: 04/14/18 08:03 Dose: 1 tab D-Mannose [D-Mannose (]) 1 cap PO DAILY [facility] Last Admin: 04/14/18 08:04 Dose: Not Given Fluticasone/Salmeterol (Fluticasone-Salmeterol 232-14 Mcg Powder Inha) 1 puff INH BID [facility] Last Admin: 04/12/18 09:35 Dose: Not Given Senna/Docusate Sodium (Senna Plus) 1 tab PO BID@0700,1700 [facility] Last Admin: 04/14/18 06:01 Dose: 1 tab Sertraline HCl (Zoloft) 25 mg PO DAILY [facility] Last Admin: 04/14/18 08:03 Dose: 25 mg Warfarin Sodium (Coumadin) 2.5 mg PO MoWeFr@1999 [facility] Last Admin: 04/12/18 20:02 Dose: 2.5 mg Warfarin Sodium (Coumadin) 5 mg PO SuTuThSa@1999 [facility] Last Admin: 04/13/18 20:01 Dose: 5 mg Discontinued Medications Albuterol/Ipratropium (Duoneb 3.0-0.5 Mg/3 Ml) 3 ml NEB BID [facility] Last Admin: 04/12/18 07:14 Dose: 3 ml Ceftriaxone Sodium (Rocephin) 1 gm IVPUSH STAT ONE Stop: 04/11/18 17:58 Last Admin: 04/11/18 18:20 Dose: 1 gm Ciprofloxacin/Dextrose 400 mg/ (Premix) 200 mls @ 200 mls/hr IV Q12H [facility] Last Admin: 04/12/18 07:51 Dose: 200 mls/hr Tiotropium [place] (Spiriva Handihaler) 18 mcg INH DAILY@0700 [facility] Last Admin: 04/12/18 09:43 Dose: Not Given Warfarin Sodium (Coumadin) 5 mg PO ONETIME ONE Stop: 04/12/18 07:32 Last Admin: 04/12/18 07:51 Dose: 5 mg - Exam General: Reports: Alert, Oriented, Cooperative, No Acute Distress HEENT: Reports: Pupils Equal, Pupils Reactive, Mucous Membr. Moist/[place]: Reports: Supple, Trachea Midline, No Thyromegaly. Denies: Lymphadenopathy Lungs: Reports: Clear to Auscultation, Normal Respiratory Effort Cardiovascular: Reports: Regular Rate, No Murmurs, Irregular Rhythm GI/Abdominal Exam: Normal Bowel Sounds, Soft, Non-Tender, No Organomegaly, No Distention, No Mass Extremities: Non-Tender, No Pedal Edema, Normal Capillary Refill Skin: Reports: Warm, Dry, Intact
[2018-04-14] MEDS ORDERED: Lactulose Soln 10 GM/15 ML 30 ML UD Cup PO PRN (09:33)
== END 2018-04-14 10:00 | DRG 871 ==
LOC: VM.ED 17:40 → VM.MS 19:30
PROVIDERS: ADMIT Internal Medicine; ATTEND Family Medicine
DX: A41.9 Sepsis, unspecified organism (principal); I11.0 Hypertensive heart disease with heart failure; I50.9 Heart failure, unspecified; J18.9 Pneumonia, unspecified organism; I48.91 Unspecified atrial fibrillation; I50.32 Chronic diastolic (congestive) heart failure; K59.09 Other constipation; I13.0 Hypertensive heart and chronic kidney disease with heart failure and stage 1 through stage 4 chronic kidney disease, or unspecified chronic kidney disease; J44.0 Chronic obstructive pulmonary disease with (acute) lower respiratory infection; J44.1 Chronic obstructive pulmonary disease with (acute) exacerbation; H54.7 Unspecified visual loss; I34.0 Nonrheumatic mitral (valve) insufficiency; Z79.01 Long term (current) use of anticoagulants; Z66 Do not resuscitate; M10.9 Gout, unspecified; H91.90 Unspecified hearing loss, unspecified ear; G31.84 Mild cognitive impairment of uncertain or unknown etiology; F43.20 Adjustment disorder, unspecified; Z79.899 Other long term (current) drug therapy; D64.9 Anemia, unspecified; I48.2 Chronic atrial fibrillation; I27.20 Pulmonary hypertension, unspecified; N18.3 Chronic kidney disease, stage 3 (moderate); K59.00 Constipation, unspecified; E86.0 Dehydration; Z87.891 Personal history of nicotine dependence; Z79.82 Long term (current) use of aspirin; Z99.81 Dependence on supplemental oxygen; Z87.442 Personal history of urinary calculi; Z85.51 Personal history of malignant neoplasm of bladder; Z86.711 Personal history of pulmonary embolism; Z93.6 Other artificial openings of urinary tract status; Z87.440 Personal history of urinary (tract) infections
CPT/HCPCS: 36415; 71045; 80053; 81001; 83605; 83735; 83880; 85025; 86140; 87040 ×2; 87086; 87088 ×2; 87186; 87804 ×2; 96361; 96374; 99284; 99285; J0696; J7030; 80048; 85610; 94640; 94760; 97162-GP; A9270-GY; J0744; J7620-GY

== ENCOUNTER 2018-05-11 16:41 | Emergency (ER) | payer MEDICARE, BC ==
[2018-05-11] MEDS ORDERED: Sodium Chloride 0.9% 10 ML Syringe FLUSH PRN (17:02)
--- NOTE | 2018-05-11 17:43 | EDM.PDOC ---
ED HPI GENERAL MEDICAL PROBLEM - General Chief Complaint: Possible Sepsis Time Seen by Provider: 05/11/18 16:50 Source of Information: Reports: Patient History Limitations: Reports: No Limitations - History of Present Illness INITIAL COMMENTS - FREE TEXT/NARRATIVE: Pt. presents to ER with complaints of "not feeling well" was initially brought to the clinic, but they state his O2 sat was "too low" to be seen in clinic. Pt. states that he has been feeling poorly for several days. Denies any chest pain or shortness of breath. [facility] that [facility] states that he blood [facility]" at the [facility] but they were unable to say specifically how low it was. Pt. states that he doesn't feel much worse than he normally does. He states that he had a cough yesterday and the day before but states that this has improved today. Pt. had his urostomy tube changed last week. Daughter states that the patient has not been feeling well since that time. Denies any significant fever or chills. Is unable to specifically offer an chief complaint, other than not feeling well. Denies any recent coughing, choking, or aspiration recently. To note, his O2 sat was 93% on arrival to ER, and was normotensive as well. Has been admitted for sepsis secondary to UTI and pneumonia numerous times, the last time at the end of March. Onset: Today Onset Date: 05/07/18 Duration: Chronic Location: Reports: Generalized Associated Symptoms: Reports: Weakness. Denies: Confusion, Chest Pain, Cough, Diaphoresis, Fever/Chills, Nausea/Vomiting, Rash - Related Data Allergies Allergy/AdvReac Type Severity Reaction Status Date / Time No Known Allergies Allergy Verified 05/11/18 18:05 Home Meds: Home Meds Allopurinol [Zyloprim] 150 mg PO DAILY 09/10/14 [History] Tiotropium [Spiriva HandiHaler] 1 puff PO DAILY@0700 12/24/14 [History] Diltiazem HCl [Cartia Xt] 180 mg PO DAILY 07/04/16 [History] Bisacodyl [Dulcolax] 5 mg PO DAILY PRN 07/07/16 [History] Budesonide/Formoterol [Symbicort 160-4.5 MCG] 2 puff INH BID 09/09/16 [History] Lactobacillus Combination No.4 [Probiotic] 1 cap PO BID@10,18 09/09/16 [History] Lactulose [Generlac] 20 gm PO TID PRN 09/09/16 [History] Furosemide [Lasix] 40 mg PO BID@0700,199904/27/17 [History] Metoprolol Succinate [Toprol XL] 25 mg PO DAILY@199904/27/17 [History] Albuterol/Ipratropium [DuoNeb 3.0-0.5 MG/3 ML] 3 ml NEB BID 10/11/17 [History] Magnesium Oxide 400 mg PO DAILY 11/13/17 [History] Albuterol [Proventil] 2.5 mg NEB Q4H PRN 12/09/17 [History] Cyanocobalamin (Vitamin B12) [Vitamin B12] 1,000 mcg PO DAILY tablet 12/09/17 [ Rx] Sennosides/Docusate Sodium [Senna-Docusate Sodium Tablet] 1 tab PO BID@0700, 1700 12/09/17 [History] Acetaminophen [Tylenol] 650 mg PO TID 04/11/18 [History] Cranberry Fruit Extract [Cranberry] 425 mg PO DAILY 04/11/18 [History] D-Mannose 500 mg PO DAILY 04/11/18 [History] Multivitamin [Daily Multiple Vitamin] 1 tab PO DAILY 04/11/18 [History] Sertraline [Zoloft] 25 mg PO DAILY 04/11/18 [History] Warfarin [Coumadin] 2.5 mg PO MOWEFR 04/11/18 [History] Warfarin [Coumadin] 5 mg PO SUTUTHSA 04/11/18 [History] Azithromycin [Zithromax] 250 mg PO DAILY #2 tablet 04/14/18 [Rx] Past Medical History HEENT History: Reports: Hard of Hearing, Impaired Vision Cardiovascular History: Reports: Afib, Aneurysm, Heart Failure, High Cholesterol , Hypertension, Pulmonary Hypertension, Other (See Below) Other Cardiovascular History: AAA Respiratory History: Reports: COPD, PE, SOB Other Respiratory History: hypoxia, oxygen dependent Gastrointestinal History: Reports: Chronic Constipation Genitourinary History: Reports: Hydronephrosis, Renal Calculus, UTI, Recurrent Other Genitourinary History: kidney stones Musculoskeletal History: Reports: Gout, Other (See Below) Other Musculoskeletal History: collapsed vertebra, compression fracture of spine Neurological History: Reports: Other (See Below) Other Neuro History: mild cognitive impairment Psychiatric History: Reports: Other (See Below) Other Psychiatric History: adjustment disorder Endocrine/Metabolic History: Reports: None Hematologic History: Reports: Other (See Below) Other Hematologic History: coumadin therapy Immunologic History: Reports: None Oncologic (Cancer) History: Reports: Bladder Dermatologic History: Reports: Other (See Below) Other Dermatologic History: lymphadenopathy - Infectious Disease History Infectious Disease History: Reports: MRSA - Past Surgical History HEENT Surgical History: Reports: Cataract Surgery Other HEENT Surgeries/Procedures: Unspecific Eye surgery Cardiovascular Surgical History: Reports: AAA Repair Other Cardiovascular Surgeries/Procedures: endoluminal aortic stent Respiratory Surgical History: Reports: None GI Surgical History: Reports: Hernia, Inguinal Other GI Surgeries/Procedures: Endoluminal Aortic Stent Male Surgical History: Reports: Cystectomy, Renal Calculus, TURP- Transurethral Resection of Prostate Other Male Surgeries/Procedures: UROSTOMY Dermatological Surgical History: Reports: None Social & Family History - Family History Cardiac: Reports: CAD Respiratory: Reports: None GI: Reports: None : Reports: None OBGYN: Reports: None Musculoskeletal: Reports: Arthritis Neurological: Reports: None Psychiatric: Reports: None Endocrine/Metabolic: Reports: Diabetes, type II Hematologic: Reports: None Immunologic: Reports: None Oncologic: Reports: Bladder, Breast, Colon, Skin - Caffeine Use Caffeine Use: Reports: None - Living Situation & Occupation Living situation: Reports: , Alone Occupation: Retired ED ROS GENERAL - Review of Systems Review Of Systems: See Below Constitutional: Reports: Malaise, Weakness. Denies: Fever, Chills, Night Sweats , Diaphoresis, Weight Gain Respiratory: Reports: Cough (resolved) Cardiovascular: Reports: No Symptoms Endocrine: Reports: No Symptoms GI/Abdominal: Reports: No Symptoms : Reports: No Symptoms Musculoskeletal: Reports: No Symptoms Skin: Reports: No Symptoms Neurological: Reports: Weakness Psychiatric: Reports: No Symptoms Hematologic/Lymphatic: Reports: No Symptoms Immunologic: Reports: No Symptoms ED EXAM, GENERAL - Physical Exam Exam: See Below Exam Limited By: No Limitations General Appearance: Alert, WD/WN, No Apparent Distress Throat/Mouth: Normal Inspection, Normal Lips, Normal Oropharynx, Normal Voice, No Airway Compromise Head: Atraumatic, Normocephalic Neck: Normal Inspection, Supple, Non-Tender Respiratory/Chest: No Respiratory Distress, Lungs Clear, Normal Breath Sounds. No: Crackles, Rales, Rhonchi, Wheezing Cardiovascular: Normal Peripheral Pulses, No Edema, No JVD, No Murmur, No Rub, Irregularly Irregular Peripheral Pulses: 3+: Radial (R) GI/Abdominal: Normal Bowel Sounds, Soft, Non-Tender, No Organomegaly, No Distention (Male) Exam: Other (urostomy. eliza urine in leg bag.) Rectal (Males) Exam: Deferred Back Exam: Normal Inspection Extremities: Normal Inspection, Normal Range of Motion, Normal Capillary Refill , Other (standing lift) Neurological: Alert, Oriented, CN II-XII Intact Psychiatric: Normal Affect, Normal Mood Skin Exam: Warm, Dry, Intact, Normal Color, No Rash Lymphatic: No Adenopathy EKG INTERPRETATION Rhythm: A-Fib [place]: Normal P-Wave: Present QRS: Normal ST-T: Normal QT: Normal Course - Vital Signs Last Recorded V/S: Last Vital Signs Temp 36.9 C 05/11/18 18:05 Pulse 98 05/11/18 18:05 Resp 20 05/11/18 18:05 BP 108/64 05/11/18 18:05 Pulse Ox 93 L 05/11/18 18:05 - Orders/Labs/Meds Labs: Laboratory Tests 05/11/18 05/11/18 05/11/18 Range/Units 17:33 17:33 17:33 WBC 7.1 (4.0-10.0) x10^3/uL RBC 4.60 (4.5-6.0) x10^6/uL Hgb 14.4 D (14.0-18.0) g/dL Hct 45.3 (40.0-52.0) % MCV 98.5 H (78.0-93.0) fL MCH 31.3 (26.0-32.0) pg MCHC 31.8 L (32.0-36.0) g/dL RDW Coeff of Lety 14.2 (10.0-15.0) % Plt Count 179 D (130-400) x10^3/uL Neut % (Auto) 56.4 (50.0-80.0) % Lymph % (Auto) 26.2 (25.0-50.0) % [place] % (Auto) 15.3 H (2.0-11.0) % Eos % (Auto) 1.4 (0.0-4.0) % Baso % (Auto) 0.7 (0.2-1.2) % PT 25.2 H (9.6-11.4) SEC INR 2.4 (2.0-3.5) Sodium 139 (136-145) mmol/L Potassium 4.1 (3.5-5.1) mmol/L Chloride 101 (98-107) mmol/L Carbon Dioxide 29 (21-32) mmol/L Anion Gap 13.1 (10-20) mmol/L BUN 39 H (7-18) mg/dL Creatinine 1.5 H (0.70-1.30) mg/dL Est Cr Clr Drug Dosing 41.86 mL/min Estimated GFR (MDRD) 44 Glucose 97 (74-106) mg/dL Lactic Acid (0.4-2.0) mmol/L Calcium 9.4 (8.5-10.1) mg/dL Corrected Calcium 9.96 (8.5-10.1) mg/dL Phosphorus 3.9 (2.6-4.7) mg/dL Magnesium 2.1 (1.8-2.4) mg/dL Total Bilirubin 0.5 (0.2-1.0) mg/dL AST 47 H (15-37) U/L ALT 41 (16-63) U/L Alkaline Phosphatase 91 (46-116) U/L Troponin I < 0.017 (<=0.056) ng/mL C-Reactive Protein 4.1 H (<=0.9) mg/dL NT-Pro-B Natriuret Pep 1425 H (<=450) pg/mL Total Protein 7.6 (6.4-8.2) g/dL Albumin 3.3 L (3.4-5.0) g/dL Globulin 4.3 Albumin/Globulin Ratio 0.77 Urine Color (YELLOW) Urine Appearance (CLEAR) Urine pH (5.0-8.0) Ur Specific [place] Urine Protein (NEGATIVE) mg/dL Urine Glucose (UA) (NEGATIVE) mg/dL Urine Ketones (NEGATIVE) mg/dL Urine Occult Blood (NEGATIVE) Urine Nitrite (NEGATIVE) Urine Bilirubin (NEGATIVE) Urine Urobilinogen (0.2) EU/dL Ur Leukocyte Esterase (NEGATIVE) Urine RBC (NOT SEEN) /HPF Urine WBC (NOT SEEN) /HPF Urine WBC Clumps Ur Squamous Epith Cells (NEGATIVE) /HPF Amorphous Sediment Urine Bacteria (NEGATIVE) /HPF Granular Casts (NEGATIVE) /HPF Urine Mucus (NEGATIVE) /LPF 05/11/18 05/11/18 Range/Units 17:33 18:15 WBC (4.0-10.0) x10^3/uL RBC (4.5-6.0) x10^6/uL Hgb (14.0-18.0) g/dL Hct (40.0-52.0) % MCV (78.0-93.0) fL MCH (26.0-32.0) pg MCHC (32.0-36.0) g/dL RDW Coeff of Lety (10.0-15.0) % Plt Count (130-400) x10^3/uL Neut % (Auto) (50.0-80.0) % Lymph % (Auto) (25.0-50.0) % [place] % (Auto) (2.0-11.0) % Eos % (Auto) (0.0-4.0) % Baso % (Auto) (0.2-1.2) % PT (9.6-11.4) SEC INR (2.0-3.5) Sodium (136-145) mmol/L Potassium (3.5-5.1) mmol/L Chloride (98-107) mmol/L Carbon Dioxide (21-32) mmol/L Anion Gap (10-20) mmol/L BUN (7-18) mg/dL Creatinine (0.70-1.30) mg/dL Est Cr Clr Drug Dosing mL/min Estimated GFR (MDRD) Glucose (74-106) mg/dL Lactic Acid 1.6 (0.4-2.0) mmol/L Calcium (8.5-10.1) mg/dL Corrected Calcium (8.5-10.1) mg/dL Phosphorus (2.6-4.7) mg/dL Magnesium (1.8-2.4) mg/dL Total Bilirubin (0.2-1.0) mg/dL AST (15-37) U/L ALT (16-63) U/L Alkaline Phosphatase (46-116) U/L Troponin I (<=0.056) ng/mL C-Reactive Protein (<=0.9) mg/dL NT-Pro-B Natriuret Pep (<=450) pg/mL Total Protein (6.4-8.2) g/dL Albumin (3.4-5.0) g/dL Globulin Albumin/Globulin Ratio Urine Color Yellow (YELLOW) Urine Appearance Turbid H (CLEAR) Urine pH 7.0 (5.0-8.0) Ur Specific [place] 1.020 Urine Protein 30 H (NEGATIVE) mg/dL Urine Glucose (UA) Negative (NEGATIVE) mg/dL Urine Ketones Negative (NEGATIVE) mg/dL Urine Occult Blood Moderate H (NEGATIVE) Urine Nitrite Positive H (NEGATIVE) Urine Bilirubin Negative (NEGATIVE) Urine Urobilinogen 0.2 (0.2) EU/dL Ur Leukocyte Esterase Large H (NEGATIVE) Urine RBC 10-20 H (NOT SEEN) /HPF Urine WBC Semi-packed (NOT SEEN) /HPF Urine WBC Clumps Few Ur Squamous Epith Cells Not seen (NEGATIVE) /HPF Amorphous Sediment Moderate Urine Bacteria Moderate H (NEGATIVE) /HPF Granular Casts Few H (NEGATIVE) /HPF Urine Mucus Few H (NEGATIVE) /LPF Meds: Medications Discontinued Medications Generic Name Dose Route Start Last Admin Trade Name Freq PRN Reason Stop Dose Admin Ciprofloxacin/Dextrose 400 mg/ 200 mls @ 200 mls/hr 05/11/18 18:35 05/11/18 18:42 Premix IV 05/11/18 19:34 200 mls/hr STAT ONE Administration Sodium Chloride 10 ml 05/11/18 17:02 Saline Flush FLUSH ASDIRECTED PRN Keep Vein Open Departure - Departure Time of Disposition: 18:05 Disposition: DC/Tfer to [facility] Clinical Impression: UTI (urinary tract infection) - Discharge Information Instructions: Urinary Tract Infection, Adult Referrals: Larisa Ellsworth MD [Primary Care Provider] - Forms: ED Department Discharge Additional Instructions: Cipro 500mg orally twice daily for 7 days Drink plenty of fluids Tylenol as needed for fever. Return to ER if confusion, unable to hold down fluids, or abnormal vital signs - Assessment/Plan Plan: Cipro 500mg orally twice daily for 7 days Drink plenty of fluids Tylenol as needed for fever. Return to ER if confusion, unable to hold down fluids, or abnormal vital signs
[2018-05-11 18:09] VITALS: BP 108/64
[2018-05-11 18:24] LABS: CHLORIDE,CL 101 mmol/L (98-107); SODIUM,NA 139 mmol/L (136-145)
[2018-05-11 18:27] LABS: ANION GAP 13.1 mmol/L (10-20)
--- NOTE | 2018-05-11 18:29 | CR ---
[id number] RAD/RAD Chest PA or AP 1V EXAM: FRONTAL CHEST INDICATION: FEVER, DYSPNEA. COMPARISON: April 12, 2018. DISCUSSION: There is stable cardiomegaly with mild to moderate congestive heart failure. Trace bilateral pleural effusions have improved when compared to the prior study. There is bibasilar subsegmental atelectasis. Underlying infiltrate could be obscured by the atelectasis. Chronic left midlung scarring is stable. Lower thoracic vertebroplasty. IMPRESSION: 1. Slight improved aeration of the lungs with findings suggestive of mild to moderate congestive heart failure exacerbation. Basim Echevarria DO 05/11/18 1828 Thank you for allowing us to participate in the care of your patient.
[2018-05-11] MEDS ORDERED: Ciprofloxacin in D5W 400 MG in Premix Bag 1 BAG IV ONE ×2 (18:35)
--- NOTE | 2018-05-15 16:36 | PCM.SN ---
- Free Text/Narrative Note: Pt. has a positive blood culture (e coli) he is currently on Cipro. [facility] was contacted. He is doing much better. I will contact his pharmacy on Thursday to extend the duration of the antibotic since he is doing well.
== END 2018-05-11 20:25 ==
LOC: VM.ED 16:41
DX: N39.0 Urinary tract infection, site not specified (principal); I11.0 Hypertensive heart disease with heart failure; I50.9 Heart failure, unspecified; I48.91 Unspecified atrial fibrillation; Z79.01 Long term (current) use of anticoagulants; Z79.899 Other long term (current) drug therapy
CPT/HCPCS: 36415; 71045; 80053; 81001; 83605; 83735; 83880; 84100; 84484; 85025; 85610; 86140; 87040; 87077; 87186; 93005; 96365; 99285; J0744

== ENCOUNTER 2018-05-20 09:56 | Emergency (ER) | payer MEDICARE, BC ==
[2018-05-20] MEDS ORDERED: Sodium Chloride 0.9% 10 ML Syringe FLUSH PRN (10:02)
[2018-05-20 10:04] VITALS: BP 118/68
[2018-05-20] MEDS ORDERED: Ciprofloxacin in D5W 400 MG in Premix Bag 1 BAG IV ONE ×2 (10:05)
--- NOTE | 2018-05-20 10:37 | CR ---
[id number] RAD/RAD Chest PA or AP 1V EXAM: SINGLE VIEW CHEST. INDICATION: FEVER. CHANGE IN MENTAL STATUS. COMPARISON: CORRELATION IS MADE WITH THE EXAM OF MAY 11, 2018. FINDINGS: There is mild scarring at both lung bases. The cardiomediastinal contour is stable. There appear to be kyphoplasty changes. IMPRESSION: STABLE CHEST SINCE MARCH 10, 2019. Aki Reyes MD 05/20/18 1036 Thank you for allowing us to participate in the care of your patient.
[2018-05-20 11:01] LABS: CHLORIDE,CL 101 mmol/L (98-107); SODIUM,NA 138 mmol/L (136-145)
[2018-05-20 11:09] LABS: ANION GAP 16.7 mmol/L (10-20)
--- NOTE | 2018-05-20 12:44 | EDM.PDOC ---
ED HPI GENERAL MEDICAL PROBLEM - General Chief Complaint: General Stated Complaint: WEAK Time Seen by Provider: 05/20/18 09:56 Source of Information: Reports: Patient History Limitations: Reports: No Limitations - History of Present Illness INITIAL COMMENTS - FREE TEXT/NARRATIVE: Presents to ER with weakness and fatigue. Pt. was seen in ER 05/11/18 and was found to have a UTI. He was started on oral cipro. His blood cultures were positive for E. Faecialis, which is intermittently susceptible to Cipro. [facility] was contacted. Advised them to continue the antibioltics for 2 weeks total. Was advised to contact the patient's pharmacy. Script was called in to [facility] (left on answering machine) but either the script was not filled, or the [facility] did not start the medication. Symptoms today were similar. The culture susceptibility did not include cipro but was susceptible to ampicillin and vanco. He has had no increased cough. Had been alert, running a low-grade fever. No nausea, vomiting, or diarrhea. Onset: Today Location: Reports: Generalized - Related Data Allergies Allergy/AdvReac Type Severity Reaction Status Date / Time No Known Allergies Allergy Verified 05/20/18 12:36 Home Meds: Home Meds Allopurinol [Zyloprim] 150 mg PO DAILY 09/10/14 [History] Tiotropium [Spiriva HandiHaler] 1 puff PO DAILY@0700 12/24/14 [History] Diltiazem HCl [Cartia Xt] 180 mg PO DAILY 07/04/16 [History] Bisacodyl [Dulcolax] 5 mg PO DAILY PRN 07/07/16 [History] Budesonide/Formoterol [Symbicort 160-4.5 MCG] 2 puff INH BID 09/09/16 [History] Lactobacillus Combination No.4 [Probiotic] 1 cap PO BID@09/09/16 [History] Lactulose [Generlac] 20 gm PO TID PRN 09/09/16 [History] Furosemide [Lasix] 40 mg PO BID@07,199904/27/17 [History] Metoprolol Succinate [Toprol XL] 25 mg PO DAILY@199904/27/17 [History] Albuterol/Ipratropium [DuoNeb 3.0-0.5 MG/3 ML] 3 ml NEB BID 10/11/17 [History] Magnesium Oxide 400 mg PO DAILY 11/13/17 [History] Albuterol [Proventil] 2.5 mg NEB Q4H PRN 12/09/17 [History] Cyanocobalamin (Vitamin B12) [Vitamin B12] 1,000 mcg PO DAILY tablet 12/09/17 [ Rx] Sennosides/Docusate Sodium [Senna-Docusate Sodium Tablet] 1 tab PO BID@0700, 1700 12/09/17 [History] Acetaminophen [Tylenol] 650 mg PO TID 04/11/18 [History] Cranberry Fruit Extract [Cranberry] 425 mg PO DAILY 04/11/18 [History] D-Mannose 500 mg PO DAILY 04/11/18 [History] Multivitamin [Daily Multiple Vitamin] 1 tab PO DAILY 04/11/18 [History] Sertraline [Zoloft] 25 mg PO DAILY 04/11/18 [History] Warfarin [Coumadin] 2.5 mg PO MOWEFR 04/11/18 [History] Warfarin [Coumadin] 5 mg PO SUTUTHSA 04/11/18 [History] Ciprofloxacin HCl [Cipro] 500 mg PO BID 05/20/18 [History] Past Medical History HEENT History: Reports: Hard of Hearing, Impaired Vision Cardiovascular History: Reports: Afib, Aneurysm, Heart Failure, High Cholesterol , Hypertension, Pulmonary Hypertension, Other (See Below) Other Cardiovascular History: AAA Respiratory History: Reports: COPD, PE, SOB Other Respiratory History: hypoxia, oxygen dependent Gastrointestinal History: Reports: Chronic Constipation Genitourinary History: Reports: Hydronephrosis, Renal Calculus, UTI, Recurrent Other Genitourinary History: kidney stones Musculoskeletal History: Reports: Gout, Other (See Below) Other Musculoskeletal History: collapsed vertebra, compression fracture of spine Neurological History: Reports: Other (See Below) Other Neuro History: mild cognitive impairment Psychiatric History: Reports: Other (See Below) Other Psychiatric History: adjustment disorder Endocrine/Metabolic History: Reports: None Hematologic History: Reports: Other (See Below) Other Hematologic History: coumadin therapy Immunologic History: Reports: None Oncologic (Cancer) History: Reports: Bladder Dermatologic History: Reports: Other (See Below) Other Dermatologic History: lymphadenopathy - Infectious Disease History Infectious Disease History: Reports: MRSA - Past Surgical History HEENT Surgical History: Reports: Cataract Surgery Other HEENT Surgeries/Procedures: Unspecific Eye surgery Cardiovascular Surgical History: Reports: AAA Repair Other Cardiovascular Surgeries/Procedures: endoluminal aortic stent Respiratory Surgical History: Reports: None GI Surgical History: Reports: Hernia, Inguinal Other GI Surgeries/Procedures: Endoluminal Aortic Stent Male Surgical History: Reports: Cystectomy, Renal Calculus, TURP- Transurethral Resection of Prostate Other Male Surgeries/Procedures: UROSTOMY Dermatological Surgical History: Reports: None Social & Family History - Family History Family Medical History: Noncontributory Cardiac: Reports: CAD Respiratory: Reports: None GI: Reports: None : Reports: None OBGYN: Reports: None Musculoskeletal: Reports: Arthritis Neurological: Reports: None Psychiatric: Reports: None Endocrine/Metabolic: Reports: Diabetes, type II Hematologic: Reports: None Immunologic: Reports: None Oncologic: Reports: Bladder, Breast, Colon, Skin - Tobacco Use Smoking Status *Q: Former Smoker Used Tobacco, but Quit: Yes Month/Year Tobacco Last Used: 0 - Caffeine Use Caffeine Use: Reports: None - Living Situation & Occupation Living situation: Reports: , Alone Occupation: Retired ED ROS GENERAL - Review of Systems Review Of Systems: See Below Constitutional: Reports: Fever, Weakness HEENT: Reports: No Symptoms Respiratory: Reports: No Symptoms Cardiovascular: Reports: No Symptoms Endocrine: Reports: No Symptoms GI/Abdominal: Reports: No Symptoms : Reports: No Symptoms Musculoskeletal: Reports: No Symptoms Skin: Reports: No Symptoms Neurological: Reports: No Symptoms Psychiatric: Reports: No Symptoms Hematologic/Lymphatic: Reports: No Symptoms Immunologic: Reports: No Symptoms ED EXAM, GENERAL - Physical Exam Exam: See Below Exam Limited By: No Limitations General Appearance: Alert, WD/WN, No Apparent Distress Eye Exam: Bilateral Eye: EOMI, PERRL Ears: Normal External Exam, Normal Canal, Hearing Grossly Normal, Normal TMs Nose: Normal Inspection, Normal Mucosa, No Blood Throat/Mouth: Normal Inspection, Normal Lips, Normal Teeth, Normal Gums, Normal Oropharynx, Normal Voice, No Airway Compromise Head: Atraumatic, Normocephalic Neck: Normal Inspection, Supple, Non-Tender, Full Range of Motion Respiratory/Chest: No Respiratory Distress, Lungs Clear, Normal Breath Sounds, No Accessory Muscle Use, Chest Non-Tender Cardiovascular: Normal Peripheral Pulses, Regular Rate, Rhythm, No Edema, No Gallop, No JVD, No Murmur, No Rub Peripheral Pulses: 3+: Radial (L), Radial (R) GI/Abdominal: Normal Bowel Sounds, Soft, Non-Tender, No Organomegaly, No Distention, No Abnormal Bruit, No Mass (Male) Exam: Deferred Rectal (Males) Exam: Deferred Back Exam: Normal Inspection Extremities: Normal Inspection, Non-Tender, No Pedal Edema, Normal Capillary Refill Neurological: Alert, Oriented, CN II-XII Intact, No Motor/Sensory Deficits, Inattentive, Confused, Disoriented Skin Exam: Warm, Dry, Intact, Normal Color, No Rash Lymphatic: No Adenopathy Course - Vital Signs Last Recorded V/S: Last Vital Signs Temp 36.6 C 05/20/18 12:14 Pulse 92 05/20/18 09:56 Resp 18 05/20/18 09:56 BP 118/68 05/20/18 09:56 Pulse Ox 92 L 05/20/18 09:56 - Orders/Labs/Meds Orders: Active Orders 24 hr Category Date Time Status CULTURE BLOOD [BC] Stat Lab 05/20/18 12:03 Received CULTURE BLOOD [BC] Stat Lab 05/20/18 12:07 Received Sodium Chloride 0.9% [Saline Flush] Med 05/20/18 10:02 Active 10 ml FLUSH ASDIRECTED PRN Blood Culture x2 Reflex Set [OM.PC] Stat Oth 05/20/18 11:45 Ordered Peripheral IV Insertion Adult [OM.PC] Routine Oth 05/20/18 10:03 Ordered Medication Orders Sodium Chloride (Saline Flush) 10 ml FLUSH ASDIRECTED PRN PRN Reason: Keep Vein Open Labs: Laboratory Tests 05/20/18 05/20/18 05/20/18 Range/Units 10:20 10:20 10:20 WBC 11.2 H (4.0-10.0) x10^3/uL RBC 4.35 L (4.5-6.0) x10^6/uL Hgb 13.9 L (14.0-18.0) g/dL Hct 42.1 (40.0-52.0) % MCV 96.8 H (78.0-93.0) fL MCH 32.0 (26.0-32.0) pg MCHC 33.0 (32.0-36.0) g/dL RDW Coeff of Lety 14.1 (10.0-15.0) % Plt Count 295 D (130-400) x10^3/uL Add Manual Diff Yes Neutrophils % (Manual) 70 (50-80) % Band Neutrophils % 9 H (0-6) % Lymphocytes % (Manual) 19 L (25-50) % Metamyelocytes % 2 H (0) % Platelet Estimate Adequate PT 26.5 H (9.6-11.4) SEC INR 2.5 (2.0-3.5) Sodium 138 (136-145) mmol/L Potassium 3.7 (3.5-5.1) mmol/L Chloride 101 (98-107) mmol/L Carbon Dioxide 24 (21-32) mmol/L Anion Gap 16.7 (10-20) mmol/L BUN 34 H (7-18) mg/dL Creatinine 1.2 (0.70-1.30) mg/dL Est Cr Clr Drug Dosing TNP Estimated GFR (MDRD) 58 Glucose 130 H (74-106) mg/dL Lactic Acid (0.4-2.0) mmol/L Calcium 9.1 (8.5-10.1) mg/dL Corrected Calcium 9.82 (8.5-10.1) mg/dL Phosphorus 2.8 (2.6-4.7) mg/dL Magnesium 2.0 (1.8-2.4) mg/dL Total Bilirubin 1.1 H (0.2-1.0) mg/dL AST 33 (15-37) U/L ALT 31 (16-63) U/L Alkaline Phosphatase 96 (46-116) U/L C-Reactive Protein 5.8 H (<=0.9) mg/dL Total Protein 7.4 (6.4-8.2) g/dL Albumin 3.1 L (3.4-5.0) g/dL Globulin 4.3 Albumin/Globulin Ratio 0.72 TSH, Ultra Sensitive 2.685 (0.358-3.74) uIU/mL Urine Color (YELLOW) Urine Appearance (CLEAR) Urine pH (5.0-8.0) Ur Specific Whiteface Urine Protein (NEGATIVE) mg/dL Urine Glucose (UA) (NEGATIVE) mg/dL Urine Ketones (NEGATIVE) mg/dL Urine Occult Blood (NEGATIVE) Urine Nitrite (NEGATIVE) Urine Bilirubin (NEGATIVE) Urine Urobilinogen (0.2) EU/dL Ur Leukocyte Esterase (NEGATIVE) Urine RBC (NOT SEEN) /HPF Urine WBC (NOT SEEN) /HPF Urine WBC Clumps Ur Squamous Epith Cells (NEGATIVE) /HPF Ur Renal Epithelial Cell (NEGATIVE) /HPF Amorphous Sediment Urine Bacteria (NEGATIVE) /HPF 05/20/18 05/20/18 Range/Units 10:20 11:22 WBC (4.0-10.0) x10^3/uL RBC (4.5-6.0) x10^6/uL Hgb (14.0-18.0) g/dL Hct (40.0-52.0) % MCV (78.0-93.0) fL MCH (26.0-32.0) pg MCHC (32.0-36.0) g/dL RDW Coeff of Lety (10.0-15.0) % Plt Count (130-400) x10^3/uL Add Manual Diff Neutrophils % (Manual) (50-80) % Band Neutrophils % (0-6) % Lymphocytes % (Manual) (25-50) % Metamyelocytes % (0) % Platelet Estimate PT (9.6-11.4) SEC INR (2.0-3.5) Sodium (136-145) mmol/L Potassium (3.5-5.1) mmol/L Chloride (98-107) mmol/L Carbon Dioxide (21-32) mmol/L Anion Gap (10-20) mmol/L BUN (7-18) mg/dL Creatinine (0.70-1.30) mg/dL Est Cr Clr Drug Dosing Estimated GFR (MDRD) Glucose (74-106) mg/dL Lactic Acid 1.2 (0.4-2.0) mmol/L Calcium (8.5-10.1) mg/dL Corrected Calcium (8.5-10.1) mg/dL Phosphorus (2.6-4.7) mg/dL Magnesium (1.8-2.4) mg/dL Total Bilirubin (0.2-1.0) mg/dL AST (15-37) U/L ALT (16-63) U/L Alkaline Phosphatase (46-116) U/L C-Reactive Protein (<=0.9) mg/dL Total Protein (6.4-8.2) g/dL Albumin (3.4-5.0) g/dL Globulin Albumin/Globulin Ratio TSH, Ultra Sensitive (0.358-3.74) uIU/mL Urine Color Yellow (YELLOW) Urine Appearance Turbid H (CLEAR) Urine pH 7.0 (5.0-8.0) Ur Specific Whiteface 1.015 Urine Protein 30 H (NEGATIVE) mg/dL Urine Glucose (UA) Negative (NEGATIVE) mg/dL Urine Ketones Negative (NEGATIVE) mg/dL Urine Occult Blood Large H (NEGATIVE) Urine Nitrite Positive H (NEGATIVE) Urine Bilirubin Negative (NEGATIVE) Urine Urobilinogen 0.2 (0.2) EU/dL Ur Leukocyte Esterase Large H (NEGATIVE) Urine RBC 10-20 H (NOT SEEN) /HPF Urine WBC 50-75 H (NOT SEEN) /HPF Urine WBC Clumps Moderate Ur Squamous Epith Cells Not seen (NEGATIVE) /HPF Ur Renal Epithelial Cell Moderate H (NEGATIVE) /HPF Amorphous Sediment Many Urine Bacteria Many H (NEGATIVE) /HPF Meds: Medications Generic Name Dose Route Start Last Admin Trade Name Freq PRN Reason Stop Dose Admin Sodium Chloride 10 ml 05/20/18 10:02 Saline Flush FLUSH ASDIRECTED PRN Keep Vein Open Discontinued Medications Generic Name Dose Route Start Last Admin Trade Name Freq PRN Reason Stop Dose Admin Ciprofloxacin/Dextrose 400 mg/ 200 mls @ 200 mls/hr 05/20/18 10:05 05/20/18 10:23 Premix IV 05/20/18 11:04 200 mls/hr STAT ONE Administration Departure - Departure Time of Disposition: 13:01 Disposition: [facility] Clinical Impression: UTI (urinary tract infection), Positive blood culture - Discharge Information Instructions: Urinary Tract Infection, Adult Referrals: Larisa Ellsworth MD [Primary Care Provider] - Forms: ED Department Discharge Additional Instructions: Cipro 500mg twice daily for 14 days Follow-up with Dr. Ellsworth in 2 weeks for recheck. Return to ER if unable to hold down fluids, difficulty breathing, or decreased level of consciousness. - My Orders Last 24 Hours: My Active Orders 05/20/18 10:02 Sodium Chloride 0.9% [Saline Flush] 10 ml FLUSH ASDIRECTED PRN 05/20/18 10:03 Peripheral IV Insertion Adult [OM.PC] Routine 05/20/18 11:45 Blood Culture x2 Reflex Set [OM.PC] Stat 05/20/18 12:03 CULTURE BLOOD [BC] Stat 05/20/18 12:07 CULTURE BLOOD [BC] Stat - Assessment/Plan Last 24 Hours: My Active Orders 05/20/18 10:02 Sodium Chloride 0.9% [Saline Flush] 10 ml FLUSH ASDIRECTED PRN 05/20/18 10:03 Peripheral IV Insertion Adult [OM.PC] Routine 05/20/18 11:45 Blood Culture x2 Reflex Set [OM.PC] Stat 05/20/18 12:03 CULTURE BLOOD [BC] Stat 05/20/18 12:07 CULTURE BLOOD [BC] Stat Plan: Spoke with his PCP, Dr. Ellsworth. Decision was made to start the patient on cipro twice daily for 2 weeks today since he did well on this until it was stopped approx. 48 hours ago. Will reevaluate patient in clinic in 2 weeks to determine that urine is clear and he is asymptomatic. Cipro 500mg twice daily for 14 days Follow-up with Dr. Ellsworth in 2 weeks for recheck. Return to ER if unable to hold down fluids, difficulty breathing, or decreased level of consciousness.
== END 2018-05-20 12:58 ==
LOC: VM.ED 09:56
DX: N39.0 Urinary tract infection, site not specified (principal); R78.81 Bacteremia; I48.91 Unspecified atrial fibrillation; I11.0 Hypertensive heart disease with heart failure; I50.9 Heart failure, unspecified; Z79.01 Long term (current) use of anticoagulants; Z87.891 Personal history of nicotine dependence; Z79.899 Other long term (current) drug therapy
CPT/HCPCS: 36415; 71045; 80053; 81001; 83605; 83735; 84100; 84443; 85025; 85610; 86140; 87040; 87077; 96365; 99285; J0744; 87186

== ENCOUNTER 2018-06-04 16:06 | Emergency (ER) | payer MEDICARE, BC ==
--- NOTE | 2018-06-04 16:49 | EDM.PDOC ---
ED HPI GENERAL MEDICAL PROBLEM - General Stated Complaint: TEMP, NOT BREATHING WELL, NON RESPONSIVE Time Seen by Provider: 06/04/18 16:25 Source of Information: Reports: Family History Limitations: Reports: No Limitations - History of Present Illness INITIAL COMMENTS - FREE TEXT/NARRATIVE: Pt comes into the emergency department by EMS after report of patient not breathing well, fever, not responding appropriately. Patient was recently hospitalized in [facility] for multiple etiologies including endocarditis. He was placed on antibiotics and ended up having his nephrostomy tube changed. Since the patient has been discharge from [place], family reports the patient has not been doing "well "patient and has been less responsive and does not always answer questions appropriately has not been out of bed. They noticed a steady decline with more rapid decline in the last 24 hours.The family has been discussing changing the patient's status to comfort cares only. Currently they would like labs drawn to evaluate and talk further regarding end-of-life cares only. Onset: Gradual Improves with: Reports: None Worsens with: Reports: Immobilization - Related Data Allergies Allergy/AdvReac Type Severity Reaction Status Date / Time No Known Allergies Allergy Verified 05/20/18 12:36 Home Meds: Home Meds Allopurinol [Zyloprim] 150 mg PO DAILY 09/10/14 [History] Tiotropium [Spiriva HandiHaler] 1 puff PO DAILY@0700 12/24/14 [History] Diltiazem HCl [Cartia Xt] 180 mg PO DAILY 07/04/16 [History] Bisacodyl [Dulcolax] 5 mg PO DAILY PRN 07/07/16 [History] Budesonide/Formoterol [Symbicort 160-4.5 MCG] 2 puff INH BID 09/09/16 [History] Lactobacillus Combination No.4 [Probiotic] 1 cap PO BID@09/09/16 [History] Lactulose [Generlac] 20 gm PO TID PRN 09/09/16 [History] Furosemide [Lasix] 40 mg PO BID@0700,199904/27/17 [History] Metoprolol Succinate [Toprol XL] 25 mg PO DAILY@199904/27/17 [History] Albuterol/Ipratropium [DuoNeb 3.0-0.5 MG/3 ML] 3 ml NEB BID 10/11/17 [History] Magnesium Oxide 400 mg PO DAILY 11/13/17 [History] Albuterol [Proventil] 2.5 mg NEB Q4H PRN 12/09/17 [History] Cyanocobalamin (Vitamin B12) [Vitamin B12] 1,000 mcg PO DAILY tablet 12/09/17 [ Rx] Sennosides/Docusate Sodium [Senna-Docusate Sodium Tablet] 1 tab PO BID@0700, 1700 12/09/17 [History] Acetaminophen [Tylenol] 650 mg PO TID 04/11/18 [History] Cranberry Fruit Extract [Cranberry] 425 mg PO DAILY 04/11/18 [History] D-Mannose 500 mg PO DAILY 04/11/18 [History] Multivitamin [Daily Multiple Vitamin] 1 tab PO DAILY 04/11/18 [History] Sertraline [Zoloft] 25 mg PO DAILY 04/11/18 [History] Warfarin [Coumadin] 2.5 mg PO MOWEFR 04/11/18 [History] Warfarin [Coumadin] 5 mg PO SUTUTHSA 04/11/18 [History] Ciprofloxacin HCl [Cipro] 500 mg PO BID 05/20/18 [History] Past Medical History HEENT History: Reports: Hard of Hearing, Impaired Vision Cardiovascular History: Reports: Afib, Aneurysm, Heart Failure, High Cholesterol , Hypertension, Pulmonary Hypertension, Other (See Below) Other Cardiovascular History: AAA Respiratory History: Reports: COPD, PE, SOB Other Respiratory History: hypoxia, oxygen dependent Gastrointestinal History: Reports: Chronic Constipation Genitourinary History: Reports: Hydronephrosis, Renal Calculus, UTI, Recurrent Other Genitourinary History: kidney stones Musculoskeletal History: Reports: Gout, Other (See Below) Other Musculoskeletal History: collapsed vertebra, compression fracture of spine Neurological History: Reports: Other (See Below) Other Neuro History: mild cognitive impairment Psychiatric History: Reports: Other (See Below) Other Psychiatric History: adjustment disorder Endocrine/Metabolic History: Reports: None Hematologic History: Reports: Other (See Below) Other Hematologic History: coumadin therapy Immunologic History: Reports: None Oncologic (Cancer) History: Reports: Bladder Dermatologic History: Reports: Other (See Below) Other Dermatologic History: lymphadenopathy - Infectious Disease History Infectious Disease History: Reports: MRSA - Past Surgical History HEENT Surgical History: Reports: Cataract Surgery Other HEENT Surgeries/Procedures: Unspecific Eye surgery Cardiovascular Surgical History: Reports: AAA Repair Other Cardiovascular Surgeries/Procedures: endoluminal aortic stent Respiratory Surgical History: Reports: None GI Surgical History: Reports: Hernia, Inguinal Other GI Surgeries/Procedures: Endoluminal Aortic Stent Male Surgical History: Reports: Cystectomy, Renal Calculus, TURP- Transurethral Resection of Prostate Other Male Surgeries/Procedures: UROSTOMY Dermatological Surgical History: Reports: None Social & Family History - Family History Family Medical History: Noncontributory Cardiac: Reports: CAD Respiratory: Reports: None GI: Reports: None : Reports: None OBGYN: Reports: None Musculoskeletal: Reports: Arthritis Neurological: Reports: None Psychiatric: Reports: None Endocrine/Metabolic: Reports: Diabetes, type II Hematologic: Reports: None Immunologic: Reports: None Oncologic: Reports: Bladder, Breast, Colon, Skin - Caffeine Use Caffeine Use: Reports: None - Living Situation & Occupation Living situation: Reports: , Alone Occupation: Retired ED ROS GENERAL - Review of Systems Review Of Systems: See Below Constitutional: Reports: Fever, Chills, Malaise, Weakness, Fatigue, Decreased Appetite HEENT: Reports: No Symptoms Respiratory: Reports: Shortness of Breath, Cough, Sputum Cardiovascular: Reports: No Symptoms Endocrine: Reports: No Symptoms GI/Abdominal: Reports: No Symptoms : Reports: Frequency, Hematuria, Urgency Musculoskeletal: Reports: No Symptoms Skin: Reports: No Symptoms Neurological: Reports: No Symptoms Psychiatric: Reports: No Symptoms ED EXAM, GENERAL - Physical Exam Exam: See Below Exam Limited By: Altered Mental Status General Appearance: Lethargic, Moderate Distress Head: Atraumatic, Normocephalic Neck: Normal Inspection, Supple, Non-Tender Respiratory/Chest: Respiratory Distress, Decreased Breath Sounds Cardiovascular: Tachycardia Extremities: Non-Tender, No Pedal Edema, Pallor Neurological: Slow to Respond Skin Exam: Pallor Course - Orders/Labs/Meds Orders: Active Orders 24 hr Category Date Time Status EKG Documentation Completion [RC] STAT Care 06/04/18 16:23 Active UA RFX KIERRA AND CULT IF INDIC [URIN] Stat Lab 06/04/18 17:03 Ordered Labs: Laboratory Tests 06/04/18 06/04/18 06/04/18 Range/Units 16:37 16:37 16:37 WBC 11.6 H (4.0-10.0) x10^3/uL RBC 3.82 L (4.5-6.0) x10^6/uL Hgb 12.0 L D (14.0-18.0) g/dL Hct 38.5 L (40.0-52.0) % MCV 100.8 H D (78.0-93.0) fL MCH 31.4 (26.0-32.0) pg MCHC 31.2 L (32.0-36.0) g/dL RDW Coeff of Lety 15.4 H (10.0-15.0) % Plt Count 359 (130-400) x10^3/uL Add Manual Diff Yes Neutrophils % (Manual) 79 (50-80) % Band Neutrophils % 1 (0-6) % Lymphocytes % (Manual) 8 L (25-50) % Monocytes % (Manual) 9 (2-11) % Eosinophils % (Manual) 3 (0-4) % Platelet Estimate Adequate PT 33.6 H (9.6-11.4) SEC INR 3.2 (2.0-3.5) Sodium 148 H D (136-145) mmol/L Potassium 3.7 (3.5-5.1) mmol/L Chloride 110 H (98-107) mmol/L Carbon Dioxide 27 (21-32) mmol/L Anion Gap 14.7 (10-20) mmol/L BUN 13 (7-18) mg/dL Creatinine 1.0 (0.70-1.30) mg/dL Est Cr Clr Drug Dosing TNP Estimated GFR (MDRD) > 60 Glucose 109 H (74-106) mg/dL Lactic Acid (0.4-2.0) mmol/L Calcium 9.0 (8.5-10.1) mg/dL Corrected Calcium 10.20 H (8.5-10.1) mg/dL Total Bilirubin 0.5 (0.2-1.0) mg/dL AST 26 (15-37) U/L ALT 18 (16-63) U/L Alkaline Phosphatase 108 (46-116) U/L Troponin I 0.032 (<=0.056) ng/mL Total Protein 7.3 (6.4-8.2) g/dL Albumin 2.5 L (3.4-5.0) g/dL Globulin 4.8 Albumin/Globulin Ratio 0.52 03/15/19 Range/Units 16:37 WBC (4.0-10.0) x10^3/uL RBC (4.5-6.0) x10^6/uL Hgb (14.0-18.0) g/dL Hct (40.0-52.0) % MCV (78.0-93.0) fL MCH (26.0-32.0) pg MCHC (32.0-36.0) g/dL RDW Coeff of Lety (10.0-15.0) % Plt Count (130-400) x10^3/uL Add Manual Diff Neutrophils % (Manual) (50-80) % Band Neutrophils % (0-6) % Lymphocytes % (Manual) (25-50) % Monocytes % (Manual) (2-11) % Eosinophils % (Manual) (0-4) % Platelet Estimate PT (9.6-11.4) SEC INR (2.0-3.5) Sodium (136-145) mmol/L Potassium (3.5-5.1) mmol/L Chloride (98-107) mmol/L Carbon Dioxide (21-32) mmol/L Anion Gap (10-20) mmol/L BUN (7-18) mg/dL Creatinine (0.70-1.30) mg/dL Est Cr Clr Drug Dosing Estimated GFR (MDRD) Glucose (74-106) mg/dL Lactic Acid 1.1 (0.4-2.0) mmol/L Calcium (8.5-10.1) mg/dL Corrected Calcium (8.5-10.1) mg/dL Total Bilirubin (0.2-1.0) mg/dL AST (15-37) U/L ALT (16-63) U/L Alkaline Phosphatase (46-116) U/L Troponin I (<=0.056) ng/mL Total Protein (6.4-8.2) g/dL Albumin (3.4-5.0) g/dL Globulin Albumin/Globulin Ratio Departure - Departure Time of Disposition: 18:00 Disposition: DC/Tfer to [facility] 03 Condition: Poor Clinical Impression: Endocarditis Qualifiers: Endocarditis type: infective Infective endocarditis organism: bacterial Chronicity: subacute Qualified Code(s): I33.0 - Acute and subacute infective endocarditis - Discharge Information *PRESCRIPTION DRUG MONITORING PROGRAM REVIEWED*: No *COPY OF PRESCRIPTION DRUG MONITORING REPORT IN PATIENT ALLY: No Referrals: Larisa Ellsworth MD [Primary Care Provider] - - Problem List Review Problem List Initiated/Reviewed/Updated: Yes - My Orders Last 24 Hours: My Active Orders 06/04/18 17:03 UA RFX KIERRA AND CULT IF INDIC [URIN] Stat - Assessment/Plan Last 24 Hours: My Active Orders 06/04/18 17:03 UA RFX KIERRA AND CULT IF INDIC [URIN] Stat Assessment:: 1. decrease responsiveness 2. fever Plan: 1. X ray completed in ER 2. labs completed 3. UA completed in ER 4. Consult with social work/ hospice. The referral is in and they are willing to complete the admit within the hour. [facility] where he [facility] on comfort cares. All medications will be discontinued. Pt's PCP Dr. Ellsworth was contacted as well who agrees with comfort measures. Family is present and feel this is the best plan of care for the pt. [facility] to [facility] for end of life cares. 5. All questions and concerns addressed prior to discharge.
[2018-06-04 17:07] LABS: CHLORIDE,CL 110 mmol/L (98-107); SODIUM,NA 148 mmol/L (136-145)
[2018-06-04 17:12] LABS: ANION GAP 14.7 mmol/L (10-20)
--- NOTE | 2018-06-04 17:37 | CR ---
[id number] RAD/RAD Chest PA or AP 1V EXAM: RAD Chest PA or AP 1V INDICATION: COUGH. COMPARISON: May 12, 2018. DISCUSSION: Cardiomediastinal silhouette is stable in size and contour. Again seen are small bilateral pleural effusions, similar to prior examination. No new findings. IMPRESSION: No significant change from prior examination. Urbano Liu MD 06/04/18 [id number] Thank you for allowing us to participate in the care of your patient.
[2018-06-04 17:53] VITALS: BP 128/78
== END 2018-06-04 18:15 ==
LOC: VM.ED 16:06
DX: I33.0 Acute and subacute infective endocarditis (principal); I11.0 Hypertensive heart disease with heart failure; I50.9 Heart failure, unspecified; J44.9 Chronic obstructive pulmonary disease, unspecified; I48.91 Unspecified atrial fibrillation; Z79.01 Long term (current) use of anticoagulants; Z79.899 Other long term (current) drug therapy
CPT/HCPCS: 71045; 80053; 81001; 83605; 84484; 85025; 85610; 87086; 93005; 99285-25